=== PATIENT | male | born 1965 | race African-American/Black ===

== ENCOUNTER 2023-02-10 22:34 | Emergency (ER) | payer OTHER ==
--- OUTSIDE RECORDS SUMMARY | 2023-02-10 22:40 | XMS REPORT | Continuity of Care Document ---
:1965 Author Organization [facility] t Address [address] [facility]. [address] [place] [address] Care Team Providers Name Role Phone TIWARI ANGEL Vázquez Primary Care Physician Unavailable KIERRA BAUTISTA Attending Clinician Unavailable Kierra Bautista MD Attending Clinician Leonid Attending Clinician Unavailable Halle Cruz Attending Clinician Unavailable ARIEL SALDIVAR Attending Clinician Unavailable Parker Mina Attending Clinician Unavailable Denise Rider Attending Clinician Unavailable Shira Fernandez Attending Clinician Unavailable Adarsh Simmons Attending Clinician Unavailable Jacy Jimenez Attending Clinician Unavailable ANITA MONTANEZ Attending Clinician Unavailable Zuniga_F Attending Clinician Unavailable JORGE A FRANCO Attending Clinician Unavailable TROY ROJAS Attending Clinician Unavailable KIERRA BAUTISTA Admitting Clinician Unavailable Yariel_Alfredo Admitting Clinician Unavailable Jacy Jimenez Admitting Clinician Unavailable Zuniga_F Admitting Clinician Unavailable Payers Payer Name Policy Type Policy Number Effective Date Expiration Date [place] [employer] DUAL [id number] 2022 ACCESS OPEN PPO 00:00:00 MED[place]ID OF [place] [id number] 2022 00:00:00 [facility] [id number] 2021 [facility] 00:00:00 (MEDICARE REPLACEMENT/ADVANTA [place] - H[place]) [place] [facility] - [id number] [facility] [id number] (MEDICARE REPLACEMENT/ADVANTA GE - PPO) [place] [id number] (MEDICAID) [facility] [id number] 2021 (MEDICARE 00:00:00 REPLACEMENT/ADVANTA GE - HMO) [employer] (MEDICARE [id number] REPLACEMENT/ADVANTA GE - PPO) Problems Condition Condition Condition Status Onset Resolution Last Treating Co mments Source Name Details Category Date Date Treatment Clinician Date Hyperlipid Hyperlipid Problem Active [facility] emia emia 7-13 da 00:00: Medical 00 Group Benign Benign Problem Active [place] essential Essential 7-13 da hypertensi Hypertensi 00:00: Me dical on on 00 Group Mixed Mixed Problem Active [place] anxiety Anxiety 5-16 da and and 00:00: Medical depressive Depressive 00 Gr oup disorder Disorder Gastro-eso Gastro-eso Problem Active [facility] phageal phageal 1-31 da reflux Reflux 00:00: Medical disease Disease 00 Group with with esophagiti Esophagiti s s Crohn's Crohn's Problem Active [place] disease of Disease of 1-31 da colon Colon 00:00: Medical 00 Group Hyperchole Hyperchole Problem Active 2020-09 [facility] sterolemia sterolemia 2-07 da 00:00: Medical 00 Group Hypertensi Hypertensi Problem Active 2020-09 [facility] ve ve 2-07 da disorder Disorder 00:00: Medica l 00 Group No known No known Disease Unive rs active active ity of problems problems [facility] Allergies, Adverse Reactions, Alerts Allergy Allergy Status Severity Reaction(s) Onset Inactive Treating Comm ents Source Name Type Date Date Clinician NO KNOWN Drug Active [facility] ALLERGIE Class ity [facility] [place] [facility] [place] Social History Social Habit Start Date Stop Date Quantity Comments Source Exposure to 2022-07-23 2022-08-02 Not sure [facility] SARS-CoV-2 (event) 00:00:00 02:07:00 Medica l Branch Sex Ass[birth year] At [birth year] [facility] y of [place] 00:00:00 00:00:00 Medical Branch Smoking Status Start Date Stop Date Source Current Every Day Smoker [facility] Tobacco smoking consumption [facility] Branch Medications Ordered Filled Start Stop Current Ordering Indication Dosage Frequency Signature Comments Components Source Medication Medication Date Date Medication? Clinician (SIG) Name Name iopamidol 2021-09- No [id number] 75mL 75 mL, Univers (ISOVUE 1-15 11-15 Intravenou ity o f 370-500 mL) 10:15: 10:15 s, ONCE, 1 [place] injection 00 :00 dose, On Medica l 75 mL e Branch 08/02/22 at 0415, Routine ondansetron 2021-09 Yes [id number] 4mg Take 1 Univers (ZOFRAN) 4 1-15 tablet by ity of mg tablet 00:00: mouth [place] 00 every 8 Medical (eight) Branch hours as needed for Nausea and Vomiting (N/V). albuterol albuterol No albuterol [place] sulfate HFA sulfate HFA sulfate da 90 90 HFA 90 Medical mcg/actuati mcg/actuati mcg/actuat Group on aerosol on aerosol ion inhaler inhaler aerosol INHALE TWO INHALE TWO inhaler (2) PUFFS (2) PUFFS INHALE TWO BY MOUTH BY MOUTH (2) PUFFS EVERY 4 TO EVERY 4 TO BY MOUTH 6 HOURS. 6 HOURS. EVERY 4 TO 6 HOURS. amlodipine amlodipine No amlodipine [place] 10 mg 10 mg 10 mg da tablet TAKE tablet TAKE tablet Medical 1 TABLET BY 1 TABLET BY TAKE 1 Group MOUTH ONCE MOUTH ONCE TABLET BY DAILY DAILY MOUTH ONCE DAILY atorvastati atorvastati No atorvastat [place] n 20 mg n 20 mg in 20 mg da tablet TAKE tablet TAKE tablet Medical 1 TABLET BY 1 TABLET BY TAKE 1 Group MOUTH ONCE MOUTH ONCE TABLET BY DAILY DAILY MOUTH ONCE DAILY cyanocobala cyanocobala No 1mL cyanocobal [place] min (vit min (vit perez (vit da B-12) 1,000 B-12) 1,000 B-12) Medical mcg/mL mcg/mL 1,000 Group injection injection mcg/mL solution solution injection Inject 1 mL Inject 1 mL solution every month every month Inject 1 by by mL every subcutaneou subcutaneou month by s route. s route. subcutaneo us route. famotidine famotidine No famotidine [place] 40 mg 40 mg 40 mg da tablet TAKE tablet TAKE tablet Medical 1 TABLET BY 1 TABLET BY TAKE 1 Group MOUTH ONCE MOUTH ONCE TABLET BY DAILY IN DAILY IN MOUTH ONCE THE EVENING THE EVENING DAILY IN THE EVENING gabapentin gabapentin No .5 BID gabapentin [place] 600 mg 600 mg 600 mg da tablet Take tablet Take tablet Medical 0.5 tablets 0.5 tablets Take 0.5 Group twice a day twice a day tablets by oral by oral twice a route for route for day by 30 days. 30 days. oral route for 30 days. hydroxyzine hydroxyzine No hydroxyzin [place] HCl 25 mg HCl 25 mg e HCl 25 d a tablet TAKE tablet TAKE mg tablet Medical 1 TABLET BY 1 TABLET BY TAKE 1 Group MOUTH ONCE MOUTH ONCE TABLET BY DAILY DAILY MOUTH ONCE NEEDED NEEDED DAILY NEEDED ibuprofen ibuprofen No ibuprofen [place] 800 mg 800 mg 800 mg da tablet tablet tablet Medical Group Medrol Medrol No 1dose Q1D Medrol [place] (Vignesh) 4 mg (Vignesh) 4 mg pk(s) (Vignesh) 4 mg da tablets in tablets in tablets in Medical a dose pack a dose pack a dose Group Take 1 dose Take 1 dose pack Take pk every pk every 1 dose pk day by oral day by oral every day route. route. by oral route. mesalamine mesalamine No mesalamine [place] 1.2 gram 1.2 gram 1.2 gram da tablet,shae tablet,shae tablet,del Medical yed release yed release ayed G roup TAKE 1 TAKE 1 release TABLET BY TABLET BY TAKE 1 MOUTH 3 MOUTH 3 TABLET BY TIMES DAILY TIMES DAILY MOUTH 3 TIMES DAILY metronidazo metronidazo No metronidaz [place] le 500 mg le 500 mg ole 500 mg da tablet TAKE tablet TAKE tablet Medical ONE (1) ONE (1) TAKE ONE Group TABLET(S) TABLET(S) (1) BY MOUTH BY MOUTH TABLET(S) THREE TIMES THREE TIMES BY MOUTH A DAY. A DAY. THREE TIMES A DAY. Mobic 15 mg Mobic 15 mg No 1 Q1D Mobic 15 [place] tablet Take tablet Take mg tablet da 1 tablet 1 tablet Take 1 Medic al every day every day tablet Addi up by oral by oral every day route for 7 route for 7 by oral days. days. route for 7 days. montelukast montelukast No montelukas [place] 10 mg 10 mg t 10 mg da tablet TAKE tablet TAKE tablet Medical 1 TABLET BY 1 TABLET BY TAKE 1 Group MOUTH EVERY MOUTH EVERY TABLET BY DAY DAY MOUTH EVERY DAY mupirocin 2 mupirocin 2 No mupirocin [place] % topical % topical 2 % da ointment ointment topical Medi alejandro APPLY A APPLY A ointment Group SMALL SMALL APPLY A AMOUNT TO AMOUNT TO SMALL THE THE AMOUNT TO AFFECTED AFFECTED THE AREA BY AREA BY AFFECTED TOPICAL TOPICAL AREA BY ROUTE 3 ROUTE 3 TOPICAL TIMES PER TIMES PER ROUTE 3 DAY DAY TIMES PER DAY omeprazole omeprazole No omeprazole [place] 40 mg 40 mg 40 mg da capsule,del capsule,del capsule,de Medical ayed ayed layed Group release release release TAKE 1 TAKE 1 TAKE 1 CAPSULE BY CAPSULE BY CAPSULE BY MOUTH ONCE MOUTH ONCE MOUTH ONCE DAILY DAILY DAILY BEFORE A BEFORE A BEFORE A MEAL MEAL MEAL ondansetron ondansetron No ondansetro [place] 4 mg 4 mg n 4 mg da disintegrat disintegrat disintegra Medical ing tablet ing tablet ting Addi up PLACE 1 PLACE 1 tablet TABLET ON TABLET ON PLACE 1 TONGUE AND TONGUE AND TABLET ON ALLOW TO ALLOW TO TONGUE AND DISSOLVE DISSOLVE ALLOW TO THREE TIMES THREE TIMES DISSOLVE A DAY FOR A DAY FOR THREE NAUSEA NAUSEA TIMES A DAY FOR NAUSEA paroxetine paroxetine No paroxetine [place] 20 mg 20 mg 20 mg da tablet Take tablet Take tablet Medical 1 tablet by 1 tablet by Take 1 Group mouth once mouth once tablet by daily daily mouth once daily propranolol propranolol No propranolo [place] 20 mg 20 mg l 20 mg da tablet TAKE tablet TAKE tablet Medical ONE (1) ONE (1) TAKE ONE Group TABLET(S) TABLET(S) (1) BY MOUTH BY MOUTH TABLET(S) TWICE A TWICE A BY MOUTH DAY. DAY. TWICE A DAY. tramadol 50 tramadol 50 No tramadol [place] mg tablet mg tablet 50 mg da TAKE 1 TAKE 1 tablet Medical TABLET TABLET TAKE 1 Group EVERY 6 EVERY 6 TABLET HOURS BY HOURS BY EVERY 6 ORAL ROUTE ORAL ROUTE HOURS BY NEEDED. NEEDED. ORAL ROUTE as needed as needed NEEDED. for pain for pain as needed for pain Immunizations Ordered Immunization Filled Immunization Date Status Commen ts Source Name Name Influenza vaccine, Influenza vaccine, 2021-08-05 Completed [place] quadrivalent, quadrivalent, 12:11:00 Medical Group adjuvanted adjuvanted Vital Signs Vital Name Observation Time Observation Value Comments Source Heart rate 2022-08-02 11:30:00 93 /min [facility] Oxygen saturation in 2022-08-02 11:30:00 96 /min [facility] Arterial blood by [facility] Pulse oximetry Branch Systolic blood 2022-08-02 11:00:00 134 [facility]Hg[facility] 2022-08-02 11:00:00 97 mm[Hg] [facility] Respiratory rate 2022-08-02 11:00:00 21 /min [facility] Body temperature 2022-08-02 08:11:00 36.56 Blanca [facility] Body height 2022-08-02 08:11:00 160 cm [facility] Body weight 2022-08-02 08:11:00 79.379 kg [facility] BMI 2022-08-02 08:11:00 31.00 kg/m2 [facility] BP Diastolic 2022-05-05 00:00:00 89 mm[Hg] [facility] Height 2022-05-05 00:00:00 68 [in_i] [facility] BMI (Body Mass 2022-05-05 00:00:00 27.5 kg/m2 [facility] Medical Index) Group BP Systolic 2022-05-05 00:00:00 132 mm[Hg] [facility] Body Weight 2022-05-05 00:00:00 2891.2 [oz_av] [facility] BP Diastolic 2022-04-27 00:00:00 96 mm[Hg] [facility] Height 2022-04-27 00:00:00 68 [in_i] [facility] BMI (Body Mass 2022-04-27 00:00:00 26.5 kg/m2 [facility] [place] [facility] Medical Index) Group BP Systolic 2022-04-27 00:00:00 131 mm[Hg] [facility] Body Weight 2022-04-27 00:00:00 2792 [oz_av] [facility] BP Diastolic 2022-03-30 00:00:00 67 mm[Hg] [facility] Height 2022-03-30 00:00:00 68 [in_i] [facility] BMI (Body Mass 2022-03-30 00:00:00 26.5 kg/m2 [facility] [place] [facility] Medical Index) Group BP Systolic 2022-03-30 00:00:00 106 mm[Hg] [facility] Body Weight 2022-03-30 00:00:00 2784 [oz_av] [facility] BP Diastolic 2022-02-28 00:00:00 93 mm[Hg] [facility] Height 2022-02-28 00:00:00 68 [in_i] [facility] BMI (Body Mass 2022-02-28 00:00:00 26.5 kg/m2 [facility] [place] [facility] Medical Index) Group BP Systolic 2022-02-28 00:00:00 132 mm[Hg] [facility] Body Weight 2022-02-28 00:00:00 2784 [oz_av] [facility] BP Diastolic 2022-01-31 00:00:00 92 mm[Hg] [facility] Height 2022-01-31 00:00:00 68 [in_i] [facility] BMI (Body Mass 2022-01-31 00:00:00 26.8 kg/m2 [facility] Index) Group BP Systolic 2022-01-31 00:00:00 128 mm[Hg] [facility] Body Weight 2022-01-31 00:00:00 2816 [oz_av] [facility] BP Diastolic 2022-01-03 00:00:00 87 mm[Hg] [facility] Height 2022-01-03 00:00:00 68 [in_i] [facility] BMI (Body Mass 2022-01-03 00:00:00 26.8 kg/m2 [facility] [place] [facility] Medical Index) Group BP Systolic 2022-01-03 00:00:00 124 mm[Hg] [facility] Body Weight 2022-01-03 00:00:00 2816 [oz_av] [facility] BP Diastolic 2021-12-06 00:00:00 85 mm[Hg] [facility] Height 2021-12-06 00:00:00 68 [in_i] [facility] BMI (Body Mass 2021-12-06 00:00:00 27.4 kg/m2 [facility] [place] [facility] Medical Index) Group BP Systolic 2021-12-06 00:00:00 131 mm[Hg] [facility] Body Weight 2021-12-06 00:00:00 2887 [oz_av] [facility] BP Diastolic 2021-11-18 00:00:00 85 mm[Hg] [facility] Height 2021-11-18 00:00:00 68 [in_i] [facility] BMI (Body Mass 2021-11-18 00:00:00 27.4 kg/m2 [facility] Medical Index) Group BP Systolic 2021-11-18 00:00:00 133 mm[Hg] [facility] Body Weight 2021-11-18 00:00:00 2880 [oz_av] [facility] BP Diastolic 2021-10-05 00:00:00 89 mm[Hg] [facility] Height 2021-10-05 00:00:00 68 [in_i] [facility] BMI (Body Mass 2021-10-05 00:00:00 27.7 kg/m2 [facility] Medical Index) Group BP Systolic 2021-10-05 00:00:00 124 mm[Hg] [facility] Body Weight 2021-10-05 00:00:00 2912 [oz_av] [facility] BP Diastolic 2021-08-24 00:00:00 78 mm[Hg] [facility] Height 2021-08-24 00:00:00 68 [in_i] [facility] BMI (Body Mass 2021-08-24 00:00:00 28.6 kg/m2 [facility] Medical Index) Group BP Systolic 2021-08-24 00:00:00 122 mm[Hg] [facility] Body Weight 2021-08-24 00:00:00 188 [lb_av] [facility] BP Diastolic 2021-08-05 00:00:00 84 mm[Hg] [facility] Height 2021-08-05 00:00:00 68 [in_i] [facility] BMI (Body Mass 2021-08-05 00:00:00 27.5 kg/m2 [facility] Medical Index) Group BP Systolic 2021-08-05 00:00:00 118 mm[Hg] [facility] Body Weight 2021-08-05 00:00:00 2896 [oz_av] [facility] Procedures Procedure Date / Time Performing Clinician Source Performed URINALYSIS 2022-08-02 10:17:00 Kierra Bautista [facility] CT ABDOMEN PELVIS W 2022-08-02 09:15:15 Kierra Bautista [facility] LIPASE 2022-08-02 08:16:00 Kierra Bautista [facility] HEPATIC FUNCTION PANEL 2022-08-02 08:16:00 Kierra Bautista [facility] ([id number]) (ALB,T.PRO,BILI Medical Branch T,BU/BC,ALT,AST,ALK PHOS) BASIC METABOLIC PANEL (NA, 2022-08-02 08:16:00 Kierra Bautista [facility] K, CL, CO2, GLUCOSE, BUN, Medica l Branch CREATININE, CA) CBC WITH DIFF 2022-08-02 08:16:00 Kierra Bautista [facility] XR, tibia + fibula, 2 view 2022-04-27 00:00:00 [facility] XR, knee, 3 view 2022-04-27 00:00:00 [place] [facility] XR, lumbosacral spine, 2 2022-04-27 00:00:00 [facility] 3 view Group XR, thoracic spine, 2 view 2022-04-27 00:00:00 [facility] XR, shoulder, 2 or more 2022-04-27 00:00:00 [facility] CT, abdomen + pelvis, w/o 2022-04-27 00:00:00 [facility] contrast [facility] ECG WITH INTERPRETATION 2021-08-05 00:00[facility]00 [facility], chest, 2 view 2021-08-05 00:00:00 [place] [facility] Cardiac Catheterization 2018-03-18 00:00:00 [facility] Partial Resection of Colon 1999-09-18 00:00:00 [facility] Cholecystectomy [place] [facility] Plan of Care Planned Activity Planned Date Details Comments Source Diagnostic Test 2022-05-05 CMP, serum or [place] [facility] edical Pending 00:00:00 plasma [code = Group CMP, serum or plasma] Diagnostic Test 2022-05-05 urinalysis, [place] Me dical Pending 00:00:00 complete [code = Group urinalysis, complete] Diagnostic Test 2022-05-05 [facility]albumin[facility] Pending 00:00:00 inine, mass ratio, Group urine [code = microalbumin/creat inine, mass ratio, urine] Encounters Start End Encounter Admission Attending Care Care Encounter Source Date/Time Date/Time Type Type Clinicians Facility Department ID 2022-08-02 2022-08-02 Emergency X MICHELE NYABI ERT [id number] [facility] 02:08:00 06:26:00 KIERRA larose [facility] 2022-08-02 2022-08-02 Emergency Michele NYABI [id number] [facility] 02:08:00 06:26:00 Kierra BAI [id number] [facility] [id number] [facility] [id number] [facility] 084 Branch 2022-06-13 2022-06-13 Outpatient Koudela_A [facility] [id number] -[id number] [place] 00:00:00 00:00:00 0926 Medical [facility] 2022-05-18 2022-05-18 Emergency ER Cruz, [facility] [id number] [place] 16:09:00 18:58:00 Halle -[id number] [facility] 2022-05-05 2022-05-05 Outpatient EL YARIEL, [facility] [id number] [place] 10:53:00 10:53:00 ARIEL -[id number] [facility] 2022-05-05 2022-05-05 Ariel Verala_A MMG [place] - [id number] 22 [place] 00:00:00 00:00:00 Discovery Yariel 0818 da PA-C: [address] [facility] [address], [facility] [place] [address] , Ph. 2022-04-27 2022-04-27 Outpatient UR YARIEL, [facility] [id number] [place] 11:14:00 11:14:00 ARIEL [id number] [facility] 2022-04-27 2022-04-27 [place] Saldivar_[place] G [place] - [id number] 22 [place] 00:00:00 00:00:00 Discovery Yariel 10 da PA-C: [address] [facility] [address], [facility] [place] [address] , Ph. 2022-04-18 2022-04-18 Emergency ER Mina, [facility] [id number] [place] 13:18:00 17:27:00 Parker -[id number] [facility] 2022-04-15 2022-04-15 Outpatient Koudela_A G [facility] [id number] -[id number] [place] 00:00:00 00:00:00 0729 Medical Group 2022-03-30 2022-03-30 Ariel Koudela_[place] MMG [place] - [id number] 22 [place] 00:00:00 00:00:00 Discovery Yariel 13 da PA-C: [address] [facility] [address], [facility] [place] [address] , Ph. 2022-02-28 2022-02-28 Ariel Sanchezudela_[place] MM[place] - [id number] 22 [place] 00:00:00 00:00:00 Discovery Yariel 0613 da PA-C: [address] [facility] [address], [facility] [place] [address] , Ph. 2022-02-25 2022-02-25 Emergency ER Iwona, [facility] [id number] [place] 13:30:00 19:22:00 Denise -[id number] [facility] 2022-02-05 2022-02-05 Outpatient Koudela_A G G [id number] -2021 [place] 12:33:00 12:33:00 0521 Medical Group 2022-01-31 2022-01-31 Outpatient AURELIO YARIEL, [facility] [id number] [place] 11:31:00 11:31:00 ARIEL -[id number] [facility] 2022-01-31 2022-01-31 Ari[place] Koudela_[place] - [id number] 22 [place] 00:00:00 00:00:00 Discovery Yariel 0516 da PA-C: [address] [address], [facility] [place] [address] , Ph. 2022-01-12 2022-01-12 Outpatient AURELIO Fernandez, [facility] [id number] [place] 09:58:00 09:58:00 Shira -[id number] [facility] 2022-01-03 2022-01-03 Ariel Sanchezudela_[place] - [id number] 22 [place] 00:00:00 00:00:00 Discovery Yariel 0418 da PA-C: [address] [facility] [address], [facility] [place] [address] , Ph. 2021-12-17 2021-12-17 Outpatient Koudela_A [facility] [id number] [place] 06:11:00 06:11:00 0401 [facility] 2021-12-06 2021-12-06 [place]ela_[place] - [id number] 22 [place] 00:00:00 00:00:00 Discovery Yariel 0321 da PA-C: [address] [facility] [address], [facility] [place] [address] , Ph. 2021-12-02 2021-12-02 Outpatient EL Simmons, [facility] [id number] [place] 10:10:00 10:10:00 Adarsh -[id number] [facility] 2021-11-18 2021-11-18 Outpatient EL VÍCTORLA, [facility] [id number] [place] 10:39:00 10:39:00 ARIEL [id number] da [facility] 2021-11-18 2021-11-18 Ariel Verala_A [facility] [place] - [id number] 22 [place] 00:00:00 00:00:00 Discovery Yariel 0303 da PA-C: [address] [facility] [address], [facility] [place] [address] , Ph. 2021-11-17 2021-11-17 Outpatient EL Simmons, [facility] [id number] [place] 10:55:00 10:55:00 Adarsh -[id number] [facility] 2021-10-29 2021-10-29 Outpatient Koudela_A [facility] [id number] -2021 [place] 04:41:00 04:41:00 0211 [facility] 2021-10-27 2021-10-27 Outpatient Koudela_A MM[facility] [id number] -2021 [place] 02:05:00 02:05:00 0209 [facility] 2021-10-19 2021-10-19 Outpatient AURELIO Simmons, [facility] [id number] [place] 09:53:00 09:53:00 Adarsh -[id number] [facility] 2021-10-18 2021-10-18 Outpatient Koudela_A [facility] G [id number] -2021 [place] 11:04:00 11:04:00 0131 [facility] 2021-10-05 2021-10-05 Ariel Koudela_[place] - [id number] 22 [place] 00:00:00 00:00:00 Discovery Thu SaldivarC: [address] [place] [address] - [address] [place] [address] , Ph. 2021-09-26 2021-10-01 Inpatient ER Jimenez, [facility] [id number] [place] 12:55:00 14:03:00 Jacy -[id number] [facility] 2021-09-25 2021-09-25 Emergency ER MONTANEZ, [facility] [id number] [place] 11:01:00 14:06:00 ANITA -[id number] [facility] 2021-08-25 2021-08-25 Outpatient Koudela_A [facility] [id number] [place] 05:53:00 05:53:00 1208 [facility] 2021-08-24 2021-08-24 M[place] Koudela_[place] - [id number] 21 [place] 00:00:00 00:00:00 Bhargav Johnson MD: Medical Medica [address], [place] [address] , Ph. [phone] 2021-08-09 2021-08-09 Outpatient Koudela_A [facility] [id number] -[id number] [place] 04:17:00 04:17:00 1122 [facility] 2021-08-06 2021-08-06 Outpatient Koudela_A [facility] G [id number] -2020 [place] 10:50:00 10:50:00 1119 [facility] 2021-08-05 2021-08-05 Ari[place] Koudela_[place] - [id number] 21 [place] 00:00:00 00:00:00 Discovery Yariel 1118 da PA-C: 600 [facility] [address], [facility] [place] [address] , Ph. 2021-08-04 2021-08-04 Outpatient Koudela_A [facility] [id number] -[id number] [place] 05:51:00 05:51:00 1117 [facility] Medical Group 2021-08-03 2021-08-03 Outpatient Zuniga_F [facility] [id number]- [id number] [place] 01:34:00 01:34:00 1116 [facility] 2021-05-29 2021-05-29 Emergency ER BA, JORGE A [facility] [id number] [place] 07:18:00 12:30:00 -[id number] [facility] 2021 2021 Emergency ER ROJAS, [facility] [id number] [place] 21:16:00 22:23:00 WAS -[id number] [facility] 2021-04-05 2021-04-05 Outpatient Zuniga_F [facility] [id number] [place] 02:45:00 02:45:00 0719 Medical Group Results Test Description Test Time Test Comments Results Result Comments Source Urinalysis complete W Reflex Culture panel - Urine 2022-04-18 0 09:29:00 Test Item Value Reference Range Interpretation Comme nts Color of Urine by Auto (test code = 57942-9) yellow Appearance of Urine (test code = 5767-9) clear clear Glucose [Presence] in Urine by Automated test strip negative ne gative (test code = 78082-6) Bilirubin.total [Mass/volume] in Urine (test code = negative ne gative 1977-02) Ketones [Mass/volume] in Urine by Automated test strip trace negative (test code = 18306-5) Specific gravity of Urine by Automated test strip (test 1.027 1.003-1.030 code = 95042-5) blood urine (test code = blood urine) negative negative pH of Urine (test code = 2756-5) 6.000 5-9 protein urine (UA) (test code = protein urine (UA)) =1+ (50 ne gative H Urobilinogen [Presence] in Urine (test code = 49606-6) =2.0 0.2-1.0 H Nitrite [Presence] in Urine by Test strip (test code = negative negative 5802-4) Leukocyte esterase [Presence] in Urine by Automated negative ne gative test strip (test code = 84227-2) Erythrocytes [#/volume] in Urine by Automated count =1-5 0- 5 (test code = 798-9) Leukocytes [#/area] in Urine sediment by Automated =1-5 0-5 count (test code = 84803-7) Epithelial cells [Presence] in Urine sediment by Light <1 0-5 microscopy (test code = 46956-5) Bacteria identified in Urine by Culture (test code = none detected none detect 630-4) Casts [#/area] in Urine sediment by Automated count none detected n one detect (test code = 78380-7) urine culture added? (test code = urine culture added?) [facility] W Auto Differential panel - [id number] 09:29:00 Test Item Value Reference Range Interpretation Comments white blood count (test code = 6.2 K/uL 4.0-12.3 white blood count) red blood count (test code = red 4.90 M/uL 3.80-5.80 blood count) hemoglobin (test code = 14.1 g/dL 11.7-17.2 hemoglobin) hematocrit (test code = 43.3 % 35.0-51.0 hematocrit) MCV [Entitic volume] (test code = 88.4 fL 83.0-100.0 63499-6) mean corpuscular hemoglobin (test 28.8 pg 26.8-33.4 code = mean corpuscular hemoglobin) mean corpuscular HGB conc (test 32.6 g/dL 30.0-35.0 code = mean corpuscular HGB conc) red cell distribution width (test 13.9 % 12.0-14.0 code = red cell distribution width) platelet count (test code = 309 K/uL 175-450 platelet count) mean platelet volume (test code = 9.0 fL 9.4-12.6 L mean platelet volume) Segmented neutrophils/100 52.9 % 44.7-82.4 leukocytes in Blood (test code = 96738-6) Immature granulocytes [#/volume] 0.01 K/uL 0.00-0.03 in Blood (test code = 45858-8) lymphocyte% (test code = 32.5 % 10.0-50.0 lymphocyte%) mono % (test code = mono %) 11.7 % 3.9-13.4 eos % (test code = eos %) 2.1 % 0.0-6.4 basophil % (test code = basophil 0.6 % 0.2-1.2 %) Band form neutrophils [#/volume] 3.30 K/uL 1.78-5.38 in Blood (test code = 52861-9) Lymphocytes [#/volume] in Specimen 2.03 K/uL 1.32-3.57 by Automated count (test code = 05504-9) mono # (test code = mono #) 0.73 K/uL 0.30-0.82 eos # (test code = eos #) 0.13 K/uL 0.04-0.54 basophil # (test code = basophil 0.04 K/uL 0.01-0.08 #) NRBC% (test code = NRBC%) 0 /100 WBC 0-0.2 NRBC# (test code = NRBC#) 0 [facility]L [facility] unspecified - [id number] 09:29:00NeutrophilsBandLymphocyteAtypical LymphMonocyteEosinophilBasophilAbs Neutrophil Count (Man)Abs LymphCount (Man)Abs Monocyte Count (Man)Abs Eosinophil Count (Man)Abs Basophil Count (Man)Platelet EstimatePlatelet MorphologyHypochromasiaPoikilocytosisAnisocytosisStomatocyteMatagorda Medical GroupComprehensive metabolic 2000 panel - Serum or [id number] 09:29:00 Test Item Value Reference Range Interpretation Comments Glucose [Mass/volume] in Serum or 103 mg/dL 74-106 Plasma (test code = 2345-7) Urea nitrogen [Mass/volume] in 11 mg/dL 6-20 Serum or Plasma (test code = 3094-0) osmolality calculated,serum (test 274 mOsm/kg 280-300 L code = osmolality calculated,serum) creatinine (test code = 0.99 mg/dL 0.70-1.20 creatinine) glomerular filtration rate (test >60.00 code = glomerular filtration rate) BUN/creatinine ratio (test code = 11.1 12.0-20.0 L BUN/creatinine ratio) sodium level (test code = sodium 137 mmol/L 135-145 level) potassium level (test code = 4.0 mmol/L 3.5-5.2 potassium level) chloride level (test code = 102 mmol/L 98-108 chloride level) CO2 (test code = CO2) 23 mmol/L 21-32 anion gap (test code = anion gap) 16.0 mEq/L 12.0-20.0 calcium level (test code = 9.8 mg/dL 8.6-10.0 calcium level) total protein (test code = total 7.2 g/dL 6.6-8.7 protein) albumin (test code = albumin) 4.6 g/dL 3.5-5.2 globulin (test code = globulin) 2.6 g/dL 1.5-4.5 A/G ratio (test code = A/G ratio) 1.8 >1.0 bilirubin,total (test code = 0.4 mg/dL 0.0-1.2 bilirubin,total) AST/SGOT (test code = AST/SGOT) 35 U/L 15-40 Alanine aminotransferase 67 U/L 0-41 H [Enzymatic activity/volume] in Serum or Plasma (test code = 1742-6) Alkaline phosphatase [Enzymatic 100 U/L 40-130 activity/volume] in Serum or Plasma (test code = 6768-6) [facility] [Enzymatic activity/volume] in Serum or Plasma 2022-04-27 00:00:00 Test Item Value Reference Range Interpretation Comments Amylase [Enzymatic activity/volume] in 62 U/L 28-100 Serum or Plasma (test code = 1798-8) [facility]ase [Enzymatic activity/volume] in Serum or Plasma 2022-04-27 00:00:00 Test Item Value Reference Range Interpretation Comments lipase (test code = lipase) 41 U/L 13-60 [facility]Urinalysis complete panel - [id number] 12:30:00 Test Item Value Reference Range Interpretation Comments Color of Urine by Auto (test light yellow code = 07987-5) Appearance of Urine (test code clear clear = 5767-9) Glucose [Presence] in Urine by negative negative Automated test strip (test code = 83314-4) Bilirubin.total [Mass/volume] negative negative in Urine (test code = 1978-6) Ketones [Mass/volume] in Urine negative negative by Automated test strip (test code = 21554-7) Specific gravity of Urine by 1.029 1.003-1.030 Automated test strip (test code = 75175-5) blood urine (test code = blood negative negative urine) pH of Urine (test code = 7.000 5-9 2756-5) protein urine (UA) (test code = negative negative protein urine (UA)) Urobilinogen [Presence] in normal 0.2-1.0 Urine (test code = 71491-4) Nitrite [Presence] in Urine by negative negative Test strip (test code = 5802-4) Leukocyte esterase [Presence] negative negative in Urine by Automated test strip (test code = 40655-2) Erythrocytes [#/volume] in <1 0-5 Urine by Automated count (test code = 798-9) Leukocytes [#/area] in Urine <1 0-5 sediment by Automated count (test code = 24488-1) Epithelial cells [Presence] in <1 0-5 Urine sediment by Light microscopy (test code = 33050-9) Bacteria identified in Urine by none detected none detect Culture (test code = 630-4) Casts [#/area] in Urine none detected none detect sediment by Automated count (test code = 79863-5) urine culture added? (test code no = urine culture added?) [facility] complete panel - [id number] 12:30:00 Test Item Value Reference Range Interpretation Comments Color of Urine by Auto (test light yellow code = 98853-3) Appearance of Urine (test code clear clear = 5767-9) Glucose [Presence] in Urine by negative negative Automated test strip (test code = 13427-4) Bilirubin.total [Mass/volume] negative negative in Urine (test code = 1978-6) Ketones [Mass/volume] in Urine negative negative by Automated test strip (test code = 64652-9) Specific gravity of Urine by 1.029 1.003-1.030 Automated test strip (test code = 25712-0) blood urine (test code = blood negative negative urine) pH of Urine (test code = 7.000 5-9 2756-5) protein urine (UA) (test code = negative negative protein urine (UA)) Urobilinogen [Presence] in normal 0.2-1.0 Urine (test code = 82089-7) Nitrite [Presence] in Urine by negative negative Test strip (test code = 5802-4) Leukocyte esterase [Presence] negative negative in Urine by Automated test strip (test code = 02395-3) Erythrocytes [#/volume] in <1 0-5 Urine by Automated count (test code = 798-9) Leukocytes [#/area] in Urine <1 0-5 sediment by Automated count (test code = 12697-2) Epithelial cells [Presence] in <1 0-5 Urine sediment by Light microscopy (test code = 85546-0) Bacteria identified in Urine by none detected none detect Culture (test code = 630-4) Casts [#/area] in Urine none detected none detect sediment by Automated count (test code = 95120-2) urine culture added? (test code no = urine culture added?) [facility] Indirect antibody screen [facility] - Blood 2022-04-18 11:39:00 Test Item Value Reference Range Interpretation Comments Rh [Type] in Blood (test code = 4+ 17253-1) ABO and Rh group panel - Blood A positive (test code = 66962-9) [facility] Indirect antibody screen [facility] - Blood 2022-04-18 11:39:00 Test Item Value Reference Range Interpretation Comments Rh [Type] in Blood (test code = 4+ 95050-0) ABO and Rh group panel - Blood A positive (test code = 72171-9) [facility] - Blood by Automated [id number] 11:34:00 Test Item Value Reference Range Interpretation Comments white blood count (test code = 6.5 K/uL 4.0-12.3 white blood count) red blood count (test code = red 4.52 M/uL 3.80-5.80 blood count) hemoglobin (test code = hemoglobin) 13.5 g/dL 11.7-17.2 hematocrit (test code = hematocrit) 39.6 % 35.0-51.0 MCV [Entitic volume] (test code = 87.6 fL 83.0-100.0 45329-6) mean corpuscular hemoglobin (test 29.9 pg 26.8-33.4 code = mean corpuscular hemoglobin) mean corpuscular HGB conc (test 34.1 g/dL 30.0-35.0 code = mean corpuscular HGB conc) red cell distribution width (test 14.3 % 12.0-14.0 H code = red cell distribution width) platelet count (test code = 251 K/uL 175-450 platelet count) mean platelet volume (test code = 8.0 fL 9.4-12.6 L mean platelet volume) [facility]PT/[id number] 11:34:00 Test Item Value Reference Range Interpretation Comments prothrombin time (test code = 9.9 seconds 10.3-12.3 L prothrombin time) INR in Blood by Coagulation assay <0.94 (test code = 21644-6) [facility] thromboplastin [id number] 11:34:00 Test Item Value Reference Range Interpretation Comments INR in Blood by Coagulation 24.5 seconds 22.5-37.0 assay (test code = 29880-8) [facility]Com[facility] 2000 [facility] - Serum or Plasma 2022-04-18 11:34:00 Test Item Value Reference Range Interpretation Comments Glucose [Mass/volume] in Serum or 96 mg/dL 74-106 Plasma (test code = 2345-7) Urea nitrogen [Mass/volume] in 9 mg/dL 6-20 Serum or Plasma (test code = 3094-0) osmolality calculated,serum (test 276 mOsm/kg 280-300 L code = osmolality calculated,serum) creatinine (test code = 0.97 mg/dL 0.70-1.20 creatinine) glomerular filtration rate (test >60.00 code = glomerular filtration rate) BUN/creatinine ratio (test code = 9.3 12.0-20.0 L BUN/creatinine ratio) sodium level (test code = sodium 139 mmol/L 135-145 level) potassium level (test code = 3.2 mmol/L 3.5-5.2 L potassium level) chloride level (test code = 101 mmol/L 98-108 chloride level) CO2 (test code = CO2) 31 mmol/L 21-32 anion gap (test code = anion gap) 10.2 mEq/L 12.0-20.0 L calcium level (test code = 9.6 mg/dL 8.6-10.0 calcium level) total protein (test code = total 7.3 g/dL 6.6-8.7 protein) albumin (test code = albumin) 4.3 g/dL 3.5-5.2 globulin (test code = globulin) 3.0 g/dL 1.5-4.5 A/G ratio (test code = A/G ratio) 1.4 >1.0 bilirubin,total (test code = 0.3 mg/dL 0.0-1.2 bilirubin,total) AST/SGOT (test code = AST/SGOT) 24 U/L 15-40 Alanine aminotransferase 41 U/L 0-41 [Enzymatic activity/volume] in Serum or Plasma (test code = 1742-6) Alkaline phosphatase [Enzymatic 91 U/L 40-130 activity/volume] in Serum or Plasma (test code = 6768-6) [facility] kinase [Enzymatic activity/volume] in Serum or [id number] 11:34:00 Test Item Value Reference Range Interpretation Comments creatine kinase (test code = creatine 192 U/L 20-200 kinase) [facility] panel - Blood by Automated [id number] 11:34:00 Test Item Value Reference Range Interpretation Comments white blood count (test code = 6.5 K/uL 4.0-12.3 white blood count) red blood count (test code = red 4.52 M/uL 3.80-5.80 blood count) hemoglobin (test code = hemoglobin) 13.5 g/dL 11.7-17.2 hematocrit (test code = hematocrit) 39.6 % 35.0-51.0 MCV [Entitic volume] (test code = 87.6 fL 83.0-100.0 49909-4) mean corpuscular hemoglobin (test 29.9 pg 26.8-33.4 code = mean corpuscular hemoglobin) mean corpuscular HGB conc (test 34.1 g/dL 30.0-35.0 code = mean corpuscular HGB conc) red cell distribution width (test 14.3 % 12.0-14.0 H code = red cell distribution width) platelet count (test code = 251 K/uL 175-450 platelet count) mean platelet volume (test code = 8.0 fL 9.4-12.6 L mean platelet volume) [facility]PT/[id number] 11:34:00 Test Item Value Reference Range Interpretation Comments prothrombin time (test code = 9.9 seconds 10.3-12.3 L prothrombin time) INR in Blood by Coagulation assay <0.94 (test code = 04472-1) [facility] [id number] 11:34:00 Test Item Value Reference Range Interpretation Comments INR in Blood by Coagulation 24.5 seconds 22.5-37.0 assay (test code = 88798-4) [facility]Com[facility] 2000 panel - Serum or Plasma 2022-04-18 11:34:00 Test Item Value Reference Range Interpretation Comments Glucose [Mass/volume] in Serum or 96 mg/dL 74-106 Plasma (test code = 2345-7) Urea nitrogen [Mass/volume] in 9 mg/dL 6-20 Serum or Plasma (test code = 3094-0) osmolality calculated,serum (test 276 mOsm/kg 280-300 L code = osmolality calculated,serum) creatinine (test code = 0.97 mg/dL 0.70-1.20 creatinine) glomerular filtration rate (test >60.00 code = glomerular filtration rate) BUN/creatinine ratio (test code = 9.3 12.0-20.0 L BUN/creatinine ratio) sodium level (test code = sodium 139 mmol/L 135-145 level) potassium level (test code = 3.2 mmol/L 3.5-5.2 L potassium level) chloride level (test code = 101 mmol/L 98-108 chloride level) CO2 (test code = CO2) 31 mmol/L 21-32 anion gap (test code = anion gap) 10.2 mEq/L 12.0-20.0 L calcium level (test code = 9.6 mg/dL 8.6-10.0 calcium level) total protein (test code = total 7.3 g/dL 6.6-8.7 protein) albumin (test code = albumin) 4.3 g/dL 3.5-5.2 globulin (test code = globulin) 3.0 g/dL 1.5-4.5 A/G ratio (test code = A/G ratio) 1.4 >1.0 bilirubin,total (test code = 0.3 mg/dL 0.0-1.2 bilirubin,total) AST/SGOT (test code = AST/SGOT) 24 U/L 15-40 Alanine aminotransferase 41 U/L 0-41 [Enzymatic activity/volume] in Serum or Plasma (test code = 1742-6) Alkaline phosphatase [Enzymatic 91 U/L 40-130 activity/volume] in Serum or Plasma (test code = 6768-6) [facility]Creat[facility] kinase [Enzymatic activity/volume] in Serum or [id number] 11:34:00 Test Item Value Reference Range Interpretation Comments creatine kinase (test code = creatine 192 U/L 20-200 kinase) [facility] W Auto Differential panel - [id number] 09:45:00 Test Item Value Reference Range Interpretation Comments white blood count (test code = 5.6 K/uL 4.0-12.3 white blood count) red blood count (test code = red 4.27 M/uL 3.80-5.80 blood count) hemoglobin (test code = 12.6 g/dL 11.7-17.2 hemoglobin) hematocrit (test code = 38.2 % 35.0-51.0 hematocrit) MCV [Entitic volume] (test code = 89.5 fL 83.0-100.0 13946-5) mean corpuscular hemoglobin (test 29.5 pg 26.8-33.4 code = mean corpuscular hemoglobin) mean corpuscular HGB conc (test 33.0 g/dL 30.0-35.0 code = mean corpuscular HGB conc) red cell distribution width (test 14.3 % 12.0-14.0 H code = red cell distribution width) platelet count (test code = 258 K/uL 175-450 platelet count) mean platelet volume (test code = 9.5 fL 9.4-12.6 mean platelet volume) Segmented neutrophils/100 46.8 % 44.7-82.4 leukocytes in Blood (test code = 39279-6) Immature granulocytes [#/volume] 0.01 K/uL 0.00-0.03 in Blood (test code = 67890-9) lymphocyte% (test code = 36.8 % 10.0-50.0 lymphocyte%) mono % (test code = mono %) 11.7 % 3.9-13.4 eos % (test code = eos %) 3.6 % 0.0-6.4 Basophils/100 leukocytes in 0.9 % 0.2-1.2 Specimen (test code = 42163-5) Band form neutrophils [#/volume] 2.64 K/uL 1.78-5.38 in Blood (test code = 53642-6) Lymphocytes [#/volume] in Specimen 2.07 K/uL 1.32-3.57 by Automated count (test code = 70395-6) mono # (test code = mono #) 0.66 K/uL 0.30-0.82 eos # (test code = eos #) 0.20 K/uL 0.04-0.54 basophil # (test code = basophil 0.05 K/uL 0.01-0.08 #) NRBC% (test code = NRBC%) 0 /100 WBC 0-0.2 NRBC# (test code = NRBC#) 0 K/uL [facility] - Serum or Plasma 2022-01-31 09:45:00 Test Item Value Reference Range Interpretation Comments glucose (test code = glucose) 96 mg/dL 74-106 Urea nitrogen [Mass/volume] in 12 mg/dL 6-20 Serum or Plasma (test code = 3094-0) osmolality calculated,serum (test 277 mOsm/kg 280-300 L code = osmolality calculated,serum) creatinine (test code = 0.92 mg/dL 0.70-1.20 creatinine) glomerular filtration rate (test >60.00 code = glomerular filtration rate) Urea nitrogen/Creatinine [Mass 13.0 12.0-20.0 Ratio] in Serum or Plasma (test code = 3097-3) sodium level (test code = sodium 139 mmol/L 135-145 level) Potassium [Moles/volume] in Body 3.6 mmol/L 3.5-5.2 fluid (test code = 2821-7) chloride level (test code = 106 mmol/L 98-108 chloride level) CO2 (test code = CO2) 24 mmol/L 21-32 anion gap (test code = anion gap) 12.6 mEq/L 12.0-20.0 calcium level (test code = 8.9 mg/dL 8.6-10.0 calcium level) total protein (test code = total 6.6 g/dL 6.6-8.7 protein) albumin (test code = albumin) 4.4 g/dL 3.5-5.2 globulin (test code = globulin) 2.2 g/dL 1.5-4.5 A/G ratio (test code = A/G ratio) 2.0 >1.0 bilirubin,total (test code = 0.2 mg/dL 0.0-1.2 bilirubin,total) AST/SGOT (test code = AST/SGOT) 19 U/L 15-40 Alanine aminotransferase 28 U/L 0-41 [Enzymatic activity/volume] in Serum or Plasma (test code = 1742-6) Alkaline phosphatase [Enzymatic 91 U/L 40-130 activity/volume] in Serum or Plasma (test code = 6768-6) [facility] - Serum or [id number] 09:45:00 Test Item Value Reference Range Interpretation Comments cholesterol level (test code = 113 mg/dL 150-200 L cholesterol level) triglycerides level (test code = 148 mg/dL <150 triglycerides level) HDL cholesterol (test code = HDL 36 mg/dL >55 L cholesterol) LDL cholesterol direct (test code = 61 mg/dL <100 LDL cholesterol direct) cholesterol risk ratio (test code = 3.138 cholesterol risk ratio) [facility]inal[facility] complete [facility] Reflex Culture panel - Urine 2022-01-31 09:45:00 Test Item Value Reference Range Interpretation Comments Color of Urine by Auto (test yellow code = 75855-7) Appearance of Urine (test code clear clear = 5767-9) Glucose [Presence] in Urine by negative negative Automated test strip (test code = 71574-4) Bilirubin.total [Mass/volume] negative negative in Urine (test code = 1978-6) Ketones [Mass/volume] in Urine negative negative by Automated test strip (test code = 73348-8) Specific gravity of Urine by 1.031 1.003-1.030 H Automated test strip (test code = 28559-5) blood urine (test code = blood negative negative urine) pH of Urine (test code = 6.000 5-9 2756-5) protein urine (UA) (test code = =1+ (30 negative H protein urine (UA)) Urobilinogen [Presence] in =2.0 0.2-1.0 H Urine (test code = 39665-6) Nitrite [Presence] in Urine by negative negative Test strip (test code = 5802-4) Leukocyte esterase [Presence] negative negative in Urine by Automated test strip (test code = 55523-9) Erythrocytes [#/volume] in =1-5 0-5 Urine by Automated count (test code = 798-9) Leukocytes [#/area] in Urine <1 0-5 sediment by Automated count (test code = 97613-0) Epithelial cells [Presence] in <1 0-5 Urine sediment by Light microscopy (test code = 75439-8) Bacteria identified in Urine by none detected none detect Culture (test code = 630-4) Casts [#/area] in Urine =2-5 none detect sediment by Automated count (test code = 23547-6) urine culture added? (test code no = urine culture added?) [facility], method unspecified - [id number] 00:00:00NeutrophilsBandLymphocyteAtypical LymphMonocyteEosinophilBasophilMetamyelocyteAbs Neutrophil Count (Man)Abs Lymph Count (Man)Abs Monocyte Count (Man)Abs Eosinophil Count (Man)Abs Basophil Count (Man)Platelet EstimatePlatelet MorphologyMacrocytosisUmmc [facility] County Hemoglobin A1c [Mass/volume] in [id number] 00:00:00 Test Item Value Reference Range Interpretation Comments Hemoglobin A1c [Mass/volume] in Blood 5.7 % 4.0-6.0 (test code = 09635-4) [facility] 2000 [facility] - Serum or Plasma 2021-11-18 09:51:00 Test Item Value Reference Range Interpretation Comments glucose (test code = glucose) 91 mg/dL 74-106 Urea nitrogen [Mass/volume] in 10 mg/dL 6-20 Serum or Plasma (test code = 3094-0) osmolality calculated,serum (test 276 mOsm/kg 280-300 L code = osmolality calculated,serum) creatinine (test code = 0.96 mg/dL 0.70-1.20 creatinine) glomerular filtration rate (test >60.00 code = glomerular filtration rate) Urea nitrogen/Creatinine [Mass 10.4 12.0-20.0 L Ratio] in Serum or Plasma (test code = 3097-3) sodium level (test code = sodium 139 mmol/L 135-145 level) Potassium [Moles/volume] in Body 3.4 mmol/L 3.5-5.2 L fluid (test code = 2821-7) chloride level (test code = 103 mmol/L 98-108 chloride level) CO2 (test code = CO2) 24 mmol/L 21-32 anion gap (test code = anion gap) 15.4 mEq/L 12.0-20.0 calcium level (test code = 8.8 mg/dL 8.6-10.0 calcium level) total protein (test code = total 7.1 g/dL 6.6-8.7 protein) albumin (test code = albumin) 4.2 g/dL 3.5-5.2 globulin (test code = globulin) 2.9 g/dL 1.5-4.5 A/G ratio (test code = A/G ratio) 1.4 >1.0 bilirubin,total (test code = 0.3 mg/dL 0.0-1.2 bilirubin,total) AST/SGOT (test code = AST/SGOT) 18 U/L 15-40 Alanine aminotransferase 32 U/L 0-41 [Enzymatic activity/volume] in Serum or Plasma (test code = 1742-6) Alkaline phosphatase [Enzymatic 91 U/L 40-130 activity/volume] in Serum or Plasma (test code = 6768-6) [facility] CountyCobalamin (Vitamin B12) [Mass/volume] in Serum or Plasma 2021-11-18 00:00:00 Test Item Value Reference Range Interpretation Comments vitamin B12, serum (test code = vitamin 330 B12, serum) [facility] W Auto Differential panel - [id number] 03:50:00 Test Item Value Reference Range Interpretation Comments white blood count (test code = 10.6 K/uL 4.0-12.3 white blood count) red blood count (test code = red 4.27 M/uL 3.80-5.80 blood count) hemoglobin (test code = 12.1 g/dL 11.7-17.2 hemoglobin) hematocrit (test code = 36.6 % 35.0-51.0 hematocrit) MCV [Entitic volume] (test code = 85.7 fL 83.0-100.0 76553-5) mean corpuscular hemoglobin (test 28.3 pg 26.8-33.4 code = mean corpuscular hemoglobin) mean corpuscular HGB conc (test 33.1 g/dL 30.0-35.0 code = mean corpuscular HGB conc) red cell distribution width (test 13.2 % 12.0-14.0 code = red cell distribution width) platelet count (test code = 242 K/uL 175-450 platelet count) mean platelet volume (test code = 9.0 fL 9.4-12.6 L mean platelet volume) Segmented neutrophils/100 72.9 % 44.7-82.4 leukocytes in Blood (test code = 78346-9) Immature granulocytes [#/volume] 0.10 K/uL 0.00-0.03 H in Blood (test code = 93320-7) lymphocyte% (test code = 19.0 % 10.0-50.0 lymphocyte%) mono % (test code = mono %) 7.1 % 3.9-13.4 eos % (test code = eos %) 0 % 0.0-6.4 Basophils/100 leukocytes in 0.1 % 0.2-1.2 L Unspecified specimen (test code = 39527-3) Band form neutrophils [#/volume] 7.75 K/uL 1.78-5.38 H in Blood (test code = 44561-3) Lymphocytes [#/volume] in 2.02 K/uL 1.32-3.57 Unspecified specimen by Automated count (test code = 47025-2) mono # (test code = mono #) 0.75 K/uL 0.30-0.82 eos # (test code = eos #) 0.00 K/uL 0.04-0.54 L basophil # (test code = basophil 0.01 K/uL 0.01-0.08 #) NRBC% (test code = NRBC%) 0 /100 WBC 0-0.2 NRBC# (test code = NRBC#) 0 K/uL [facility] metabolic 2000 panel - Serum or [id number] 03:50:00 Test Item Value Reference Range Interpretation Comments Glucose [Mass/volume] in Serum or 120 mg/dL 74-106 H Plasma (test code = 2345-7) Urea nitrogen [Mass/volume] in 20 mg/dL 6-20 Serum or Plasma (test code = 3094-0) osmolality calculated,serum (test 278 mOsm/kg 280-300 L code = osmolality calculated,serum) creatinine (test code = 0.89 mg/dL 0.70-1.20 creatinine) glomerular filtration rate (test >60.00 code = glomerular filtration rate) Urea nitrogen/Creatinine [Mass 22.5 12.0-20.0 H Ratio] in Serum or Plasma (test code = 3097-3) sodium level (test code = sodium 137 mmol/L 135-145 level) potassium level (test code = 3.6 mmol/L 3.5-5.2 potassium level) chloride level (test code = 106 mmol/L 98-108 chloride level) CO2 (test code = CO2) 25 mmol/L 21-32 anion gap (test code = anion gap) 9.6 mEq/L 12.0-20.0 L calcium level (test code = 8.0 mg/dL 8.6-10.0 L calcium level) [facility] method unspecified - [id number] 00:00:00NeutrophilsBandLymphocyteAtypical LymphMonocyteEosinophilBasophilMetamyelocyteMyelocytePromyelocyteBlastsNucleated Red Blood CellPlasma CellDifferential CommentAbs Neutrophil Count (Man)Abs Lymph Count(Man)Abs Monocyte Count (Man)Abs Eosinophil Count (Man)Abs Basophil Count (Man)Platelet EstimatePlatelet MorphologyHypochromasiaPoikilocytosisAnisocytosisMicrocytosisMacrocytosisSchisto cytesTarget CellsStomatocyteToxic GranulationBurr CellsHypersegmented PolysSmudge CellsScott [facility] W Auto Differential panel - Blood 2021-09-30 03:28:00 Test Item Value Reference Range Interpretation Comments white blood count (test code = 10.1 K/uL 4.0-12.3 white blood count) red blood count (test code = red 4.17 M/uL 3.80-5.80 blood count) hemoglobin (test code = 12.0 g/dL 11.7-17.2 hemoglobin) hematocrit (test code = 37.2 % 35.0-51.0 hematocrit) MCV [Entitic volume] (test code = 89.2 fL 83.0-100.0 08035-0) mean corpuscular hemoglobin (test 28.8 pg 26.8-33.4 code = mean corpuscular hemoglobin) mean corpuscular HGB conc (test 32.3 g/dL 30.0-35.0 code = mean corpuscular HGB conc) red cell distribution width (test 13.7 % 12.0-14.0 code = red cell distribution width) platelet count (test code = 241 K/uL 175-450 platelet count) mean platelet volume (test code = 9.0 fL 9.4-12.6 L mean platelet volume) Segmented neutrophils/100 85.9 % 44.7-82.4 H leukocytes in Blood (test code = 65400-9) Immature granulocytes [#/volume] 0.11 K/uL 0.00-0.03 H in Blood (test code = 80807-7) lymphocyte% (test code = 10.0 % 10.0-50.0 lymphocyte%) mono % (test code = mono %) 3.0 % 3.9-13.4 L eos % (test code = eos %) 0 % 0.0-6.4 Basophils/100 leukocytes in 0.0 % 0.2-1.2 L Unspecified specimen (test code = 56907-5) Band form neutrophils [#/volume] 8.69 K/uL 1.78-5.38 H in Blood (test code = 30813-3) Lymphocytes [#/volume] in 1.01 K/uL 1.32-3.57 L Unspecified specimen by Automated count (test code = 06633-3) mono # (test code = mono #) 0.30 K/uL 0.30-0.82 eos # (test code = eos #) 0.00 K/uL 0.04-0.54 L basophil # (test code = basophil 0.00 K/uL 0.01-0.08 L #) NRBC% (test code = NRBC%) 0 /100 WBC 0-0.2 NRBC# (test code = NRBC#) 0 K/uL [facility] metabolic 2000 panel - Serum or [id number] 03:28:00 Test Item Value Reference Range Interpretation Comments Glucose [Mass/volume] in Serum or 127 mg/dL 74-106 H Plasma (test code = 2345-7) Urea nitrogen [Mass/volume] in 19 mg/dL 6-20 Serum or Plasma (test code = 3094-0) osmolality calculated,serum (test 281 mOsm/kg 280-300 code = osmolality calculated,serum) creatinine (test code = 0.84 mg/dL 0.70-1.20 creatinine) glomerular filtration rate (test >60.00 code = glomerular filtration rate) Urea nitrogen/Creatinine [Mass 22.6 12.0-20.0 H Ratio] in Serum or Plasma (test code = 3097-3) sodium level (test code = sodium 139 mmol/L 135-145 level) potassium level (test code = 3.8 mmol/L 3.5-5.2 potassium level) chloride level (test code = 106 mmol/L 98-108 chloride level) CO2 (test code = CO2) 24 mmol/L 21-32 anion gap (test code = anion gap) 12.8 mEq/L 12.0-20.0 calcium level (test code = 8.3 mg/dL 8.6-10.0 L calcium level) [facility] method unspecified - [id number] 00:00:00NeutrophilsBandLymphocyteAtypical LymphMonocyteEosinophilBasophilMetamyelocyteMyelocytePromyelocyteBlastsNucleated Red Blood CellPlasma CellDifferential CommentAbs Neutrophil Count (Man)Abs Lymph Count(Man)Abs Monocyte Count (Man)Abs Eosinophil Count (Man)Abs Basophil Count (Man)Platelet EstimatePlatelet MorphologyHypochromasiaPoikilocytosisAnisocytosisMicrocytosisMacrocytosisSchisto cytesTarget CellsStomatocyteToxic GranulationBurr CellsHypersegmented PolysSmudge CellsUmmc Holmes CountyClostridioides difficile toxin A+B [Presence] in [id number] 08:35:00 Test Item Value Reference Range Interpretation Comments results (test code = results) Clostridioides difficile 027 presumptive [id number] strain DNA negative [Presence] in Stool by PRANAV with probe detection (test code = 18676-4) [facility] CountyLeukocytes [Presence] in Stool by Light microscopy 2021-09-29 08:35:00ResultsUmmc Holmes CountyCBC W Auto Differential panel - [id number] 02:50:00 Test Item Value Reference Range Interpretation Comments white blood count (test code = 12.0 K/uL 4.0-12.3 white blood count) red blood count (test code = red 4.17 M/uL 3.80-5.80 blood count) hemoglobin (test code = 11.9 g/dL 11.7-17.2 hemoglobin) hematocrit (test code = 36.2 % 35.0-51.0 hematocrit) MCV [Entitic volume] (test code = 86.8 fL 83.0-100.0 76058-3) mean corpuscular hemoglobin (test 28.5 pg 26.8-33.4 code = mean corpuscular hemoglobin) mean corpuscular HGB conc (test 32.9 g/dL 30.0-35.0 code = mean corpuscular HGB conc) red cell distribution width (test 13.6 % 12.0-14.0 code = red cell distribution width) platelet count (test code = 255 K/uL 175-450 platelet count) mean platelet volume (test code = 9.1 fL 9.4-12.6 L mean platelet volume) Segmented neutrophils/100 89.1 % 44.7-82.4 H leukocytes in Blood (test code = 38584-6) Immature granulocytes [#/volume] 0.09 K/uL 0.00-0.03 H in Blood (test code = 43437-5) lymphocyte% (test code = 7.4 % 10.0-50.0 L lymphocyte%) mono % (test code = mono %) 2.8 % 3.9-13.4 L eos % (test code = eos %) 0 % 0.0-6.4 Basophils/100 leukocytes in 0.0 % 0.2-1.2 L Unspecified specimen (test code = 41755-8) Band form neutrophils [#/volume] 10.72 K/uL 1.78-5.38 H in Blood (test code = 00779-1) Lymphocytes [#/volume] in 0.89 K/uL 1.32-3.57 L Unspecified specimen by Automated count (test code = 74819-0) mono # (test code = mono #) 0.34 K/uL 0.30-0.82 eos # (test code = eos #) 0.00 K/uL 0.04-0.54 L basophil # (test code = basophil 0.00 K/uL 0.01-0.08 L #) NRBC% (test code = NRBC%) 0 /100 WBC 0-0.2 NRBC# (test code = NRBC#) 0 K/uL [facility] metabolic 2000 panel - Serum or [id number] 02:50:00 Test Item Value Reference Range Interpretation Comments Glucose [Mass/volume] in Serum or 139 mg/dL 74-106 H Plasma (test code = 2345-7) Urea nitrogen [Mass/volume] in 21 mg/dL 6-20 H Serum or Plasma (test code = 3094-0) osmolality calculated,serum (test 283 mOsm/kg 280-300 code = osmolality calculated,serum) creatinine (test code = 0.92 mg/dL 0.70-1.20 creatinine) glomerular filtration rate (test >60.00 code = glomerular filtration rate) Urea nitrogen/Creatinine [Mass 22.8 12.0-20.0 H Ratio] in Serum or Plasma (test code = 3097-3) sodium level (test code = sodium 139 mmol/L 135-145 level) potassium level (test code = 3.8 mmol/L 3.5-5.2 potassium level) chloride level (test code = 105 mmol/L 98-108 chloride level) CO2 (test code = CO2) 24 mmol/L 21-32 anion gap (test code = anion gap) 13.8 mEq/L 12.0-20.0 calcium level (test code = 8.6 mg/dL 8.6-10.0 calcium level) [facility], method unspecified - [id number] 00:00:00NeutrophilsBandLymphocyteAtypical LymphMonocyteEosinophilBasophilMetamyelocyteMyelocytePromyelocyteBlastsNucleated Red Blood CellDifferential CommentAbs Neutrophil Count (Man)Abs Lymph Count (Man)Abs Monocyte Count (Man)Abs Eosinophil Count (Man)Abs Basophil Count (Man)Platelet EstimatePlatelet Morphol ogyHypochromasiaPoikilocytosisAnisocytosisMicrocytosisMacrocytosisTarget CellsBurr CellsHypersegmented PolysUmmc Holmes CountyBasic metabolic 2000 panel - Serum or [id number] 03:05:00 Test Item Value Reference Range Interpretation Comments glucose (test code = glucose) 125 mg/dL 74-106 H Urea nitrogen [Mass/volume] in 19 mg/dL 6-20 Serum or Plasma (test code = 3094-0) osmolality calculated,serum (test 281 mOsm/kg 280-300 code = osmolality calculated,serum) creatinine (test code = 0.85 mg/dL 0.70-1.20 creatinine) glomerular filtration rate (test >60.00 code = glomerular filtration rate) Urea nitrogen/Creatinine [Mass 22.4 12.0-20.0 H Ratio] in Serum or Plasma (test code = 3097-3) sodium level (test code = sodium 139 mmol/L 135-145 level) Potassium [Moles/volume] in Body 3.8 mmol/L 3.5-5.2 fluid (test code = 2821-7) chloride level (test code = 105 mmol/L 98-108 chloride level) CO2 (test code = CO2) 23 mmol/L 21-32 anion gap (test code = anion gap) 14.8 mEq/L 12.0-20.0 calcium level (test code = 9.0 mg/dL 8.6-10.0 calcium level) [facility] W Auto Differential panel - [id number] 03:05:00 Test Item Value Reference Range Interpretation Comments white blood count (test code = 14.1 K/uL 4.0-12.3 white blood count) red blood count (test code = red 4.35 M/uL 3.80-5.80 blood count) hemoglobin (test code = 12.5 g/dL 11.7-17.2 hemoglobin) hematocrit (test code = 37.8 % 35.0-51.0 hematocrit) MCV [Entitic volume] (test code = 86.9 fL 83.0-100.0 99023-6) mean corpuscular hemoglobin (test 28.7 pg 26.8-33.4 code = mean corpuscular hemoglobin) mean corpuscular HGB conc (test 33.1 g/dL 30.0-35.0 code = mean corpuscular HGB conc) red cell distribution width (test 13.7 % 12.0-14.0 code = red cell distribution width) platelet count (test code = 275 K/uL 175-450 platelet count) mean platelet volume (test code = 9.1 fL 9.4-12.6 L mean platelet volume) Segmented neutrophils/100 88.3 % 44.7-82.4 H leukocytes in Blood (test code = 00867-6) Immature granulocytes [#/volume] 0.09 K/uL 0.00-0.03 H in Blood (test code = 09519-5) lymphocyte% (test code = 8.2 % 10.0-50.0 L lymphocyte%) mono % (test code = mono %) 2.8 % 3.9-13.4 L eos % (test code = eos %) 0 % 0.0-6.4 Basophils/100 leukocytes in 0.1 % 0.2-1.2 L Unspecified specimen (test code = 03266-2) Band form neutrophils [#/volume] 12.42 K/uL 1.78-5.38 H in Blood (test code = 86808-1) Lymphocytes [#/volume] in 1.15 K/uL 1.32-3.57 L Unspecified specimen by Automated count (test code = 39557-4) mono # (test code = mono #) 0.40 K/uL 0.30-0.82 eos # (test code = eos #) 0.00 K/uL 0.04-0.54 L basophil # (test code = basophil 0.01 K/uL 0.01-0.08 #) NRBC% (test code = NRBC%) 0 /100 WBC 0-0.2 NRBC# (test code = NRBC#) 0 K/uL [facility]Different[facility] panel, method unspecified - [id number] 00:00:00NeutrophilsBandLymphocyteAtypical LymphMonocyteEosinophilBasophilMetamyelocyteMyelocytePromyelocyteBlastsNucleated Red Blood CellDifferential CommentAbs Neutrophil Count (Man)Abs Lymph Count (Man)Abs Monocyte Count (Man)Abs Eosinophil Count (Man)Abs Basophil Count (Man)Platelet EstimatePlatelet Morphol ogyHypochromasiaPoikilocytosisAnisocytosisMicrocytosisMacrocytosisTarget CellsBurr CellsScott Regional Hospital W Auto Differential panel - Blood 2021-09-25 10:10:00 Test Item Value Reference Range Interpretation Comments white blood count (test code = 6.9 K/uL 4.0-12.3 white blood count) red blood count (test code = red 4.84 M/uL 3.80-5.80 blood count) hemoglobin (test code = 13.8 g/dL 11.7-17.2 hemoglobin) hematocrit (test code = 42.0 % 35.0-51.0 hematocrit) MCV [Entitic volume] (test code = 86.8 fL 83-100 14836-4) mean corpuscular hemoglobin (test 28.5 pg 26.8-33.4 code = mean corpuscular hemoglobin) mean corpuscular HGB conc (test 32.9 g/dL 30-35 code = mean corpuscular HGB conc) red cell distribution width (test 13.9 % 12.0-14.0 code = red cell distribution width) platelet count (test code = 291 K/uL 175-450 platelet count) mean platelet volume (test code = 8.3 fL 9.4-12.6 L mean platelet volume) Segmented neutrophils/100 36.0 % 44.7-82.4 L leukocytes in Blood (test code = 42863-2) Immature granulocytes [#/volume] 0.0 K/uL 0.0-0.03 in Blood (test code = 04209-2) lymphocyte% (test code = 52.2 % 10.0-50.0 H lymphocyte%) mono % (test code = mono %) 8.4 % 3.9-13.4 eos % (test code = eos %) 2.7 % 0.0-6.4 Basophils/100 leukocytes in 0.6 % 0.2-1.2 Unspecified specimen (test code = 85292-2) Band form neutrophils [#/volume] 2.49 K/uL 1.78-5.38 in Blood (test code = 87501-1) Lymphocytes [#/volume] in 3.6 K/uL 1.32-3.57 H Unspecified specimen by Automated count (test code = 94217-6) mono # (test code = mono #) 0.58 K/uL 0.30-0.82 eos # (test code = eos #) 0.19 K/uL 0.04-0.54 basophil # (test code = basophil 0.04 K/uL 0.01-0.08 #) NRBC% (test code = NRBC%) 0 /100 WBC 0-0.2 NRBC# (test code = NRBC#) 0 K/uL [facility] CountyPT/[id number] 10:10:00 Test Item Value Reference Range Interpretation Comments prothrombin time (test code = 9.9 seconds 10.3-12.3 L prothrombin time) INR in Blood by Coagulation assay <0.94 (test code = 85883-1) [facility]Com[facility] 2000 [facility] - Serum or Plasma 2021-09-25 10:10:00 Test Item Value Reference Range Interpretation Comments Glucose [Mass/volume] in Serum or 162 mg/dL 74-106 H Plasma (test code = 2345-7) Urea nitrogen [Mass/volume] in 11 mg/dL 6-20 Serum or Plasma (test code = 3094-0) osmolality calculated,serum (test 279 mOsm/kg 280-300 L code = osmolality calculated,serum) creatinine (test code = 1.0 mg/dL 0.70-1.20 creatinine) glomerular filtration rate (test >60.00 code = glomerular filtration rate) Urea nitrogen/Creatinine [Mass 11.0 12-20 L Ratio] in Serum or Plasma (test code = 3097-3) sodium level (test code = sodium 138 mmol/L 135-145 level) potassium level (test code = 3.5 mmol/L 3.5-5.2 potassium level) chloride level (test code = 102 mmol/L 98-108 chloride level) CO2 (test code = CO2) 24 mmol/L 21-32 anion gap (test code = anion gap) 16.0 mEq/L 12-20 calcium level (test code = 9.4 mg/dL 8.6-10.0 calcium level) total protein (test code = total 7.2 g/dL 6.6-8.7 protein) albumin (test code = albumin) 4.6 g/dL 3.5-5.2 globulin (test code = globulin) 2.6 gm/dL A/G ratio (test code = A/G ratio) 1.8 >1.0 bilirubin,total (test code = 0.3 mg/dL 0.0-1.2 bilirubin,total) AST/SGOT (test code = AST/SGOT) 29 U/L 15-40 Alanine aminotransferase 53 U/L 0-41 H [Enzymatic activity/volume] in Serum or Plasma (test code = 1742-6) Alkaline phosphatase [Enzymatic 124 U/L 40-130 activity/volume] in Serum or Plasma (test code = 6768-6) [facility] CountyCreatine kinase [Enzymatic activity/volume] in Serum or [id number] 10:10:00 Test Item Value Reference Range Interpretation Comments creatine kinase (test code = creatine 243 U/L 20-200 H kinase) [facility]Differential panel, method unspecified - [id number] 00:00:00NeutrophilsBandLymphocyteAtypical LymphMonocyteEosinophilBasophilMetamyelocyteMyelocyteAbs Neutrophil Count (Man)Abs Lymph Count (Man)Abs Monocyte Count (Man)Abs Eosinophil Count (Man)Abs Basophil Count (Man)Platelet EstimateHypochromasiaMatagoBrentwood Behavioral Healthcare of Mississippipartial thromboplastin [id number] 00:00:00 Test Item Value Reference Range Interpretation Comments INR in Blood by Coagulation 23.6 seconds 22.5-37.0 assay (test code = 49032-6) [facility] CountyCreatine kinase.MB [Mass/volume] in Serum or Plasma 2021-09-25 00:00:00 Test Item Value Reference Range Interpretation Comments Creatine kinase.MB [Mass/volume] in 1.7 NG/mL 0.0-3.6 Serum or Plasma by Immunoassay (test code = 44120-0) [facility] Countyltrop [id number] 00:00:00 Test Item Value Reference Range Interpretation Comments Troponin T.cardiac [Mass/volume] in <0.01 0-0.011 Blood (test code = 77443-7) [facility]
[2023-02-11 00:35] LABS: Absolute Lymphocytes (CBC) 2.4 K/uL (0.7-4.9); Hematocrit 40.1 % (39.6-49.0); Lymphocytes % 42.7 % (15.3-44.8); MPV 6.6 fL (7.6-11.3); RBC Red Blood Cell Count 5.07 M/uL (4.33-5.43)
[2023-02-11 00:47] LABS: Albumin 3.5 g/dL (3.4-5.0); Bilirubin Total 0.3 mg/dL (0.2-1.0); Potassium 3.2 mEq/L (3.5-5.1); Protein, Total 7.2 g/dL (6.4-8.2)
[2023-02-11 01:52] LABS: Anisocytosis 1+; Blood Morphology Comment NOTED (NOT SEEN); Hypochromasia 1+; Platelet Estimate ADEQ; White Blood Cell Scan OK (OK)
--- NOTE | 2023-02-11 02:48 | EDPHYS ---
Physician Documentation [facility] Name: Piter Iglesias Age: 57 yrs Sex: Male : 1965 Arrival Date: 02/10/2023 Time: 22:34 Bed 19 Private MD: ED Physician Kaveh Olguin HPI: 02/11 00:33 This 57 yrs old Black Male presents to ER via EMS with complaints of Back pain, ms3 abdominal pain. 00:33 57-year-old male with past medical history of anxiety, spinal stenosis, hypertension, ms3 hyperlipidemia, asthma presents via clued EMS after bending down at the store and feeling his back pop. Patient states he feels numb below his lumbar spine. Patient states pain is 10/10. Patient states he is also having abdominal pain. Historical: - Allergies: 02/10 22:39 Nuts; mb9 - PMHx: 22:39 Anxiety; spinal stenosis; Hypertension; Hyperlipidemia; Asthma; mb9 - PSHx: 22:39 Cholecystectomy; intestinal Surgery; mb9 - Immunization history:: Adult Immunizations up to date. - Social history:: Smoking status: Patient denies any tobacco usage or history of. ROS: 02/11 00:33 Constitutional: Negative for fever, and chills. Neck: Negative for injury, pain, and ms3 swelling, Cardiovascular: Negative for chest pain, and palpitations. Respiratory: Negative for shortness of breath, cough, wheezing, and pleuritic chest pain. Abdomen/GI: Positive for abdominal pain, Negative for nausea, vomiting, and diarrhea. Back: Positive for pain at rest. All other systems are negative. Exam: 00:33 Constitutional: This is a well developed, well nourished patient who is awake, alert, ms3 and in no acute distress. Head/Face: Normocephalic, atraumatic. Neck: Trachea midline, no cervical lymphadenopathy. Supple, full range of motion without nuchal rigidity, or vertebral point tenderness. No Meningismus. Chest/axilla: Normal chest wall appearance and motion. Nontender with no deformity. Cardiovascular: Regular rate and rhythm with a normal S1 and S2. No gallops, murmurs, or rubs. Normal PMI, no JVD. No pulse deficits. Respiratory: Lungs have equal breath sounds bilaterally, clear to auscultation and percussion. No rales, rhonchi or wheezes noted. No increased work of breathing, no retractions or nasal flaring. Abdomen/GI: Soft, non-tender, with normal bowel sounds. No distension or tympany. No guarding or rebound. No evidence of tenderness throughout. Skin: Warm, dry with normal turgor. Normal color with no rashes, no lesions, and no evidence of cellulitis. MS/ Extremity: Pulses equal, no cyanosis. Neurovascular intact. Full, normal range of motion. 00:33 Neuro: Orientation: is normal, Mentation: is normal, Memory: is normal, Cranial nerves: CN II- XII are normal as tested, Cerebellar function: is grossly normal, Motor: is normal, Sensation: no obvious gross deficits. Vital Signs: 02/10 22:37 BP 142 / 96; Pulse 78; Resp 19 S; Temp 97.7; Pulse Ox 100% ; aa9 22:37 BP 142 / 96; Pulse 79; Resp 18; Pulse Ox 100% on R/A; Weight 84.82 kg; Height 5 ft. 3 mb9 in. ; 23:20 BP 160 / 62; Pulse 65; Resp 18 S; Pulse Ox 96% ; aa9 02/11 02:59 BP 148 / 79; Pulse 69; Resp 17; Temp 98.5(O); Pulse Ox 99% ; aa9 02/10 22:37 Body Mass Index 33.13 (84.82 kg, 160.02 cm) [facility] MDM: 02/10 23:25 Patient medically screened. ms3 02/11 00:33 Differential diagnosis: ruptured disc, sprain, vertebral fracture. ms3 03:22 Data reviewed: vital signs, nurses notes, lab test result(s), radiologic studies, CT ms3 scan, and as a result, I will discharge patient. I considered the following discharge prescriptions or medication management in the emergency department Medications were administered in the Emergency Department. See MAR. Historians other than the Patient: EMS: . Counseling: I had a detailed discussion with the patient and/or guardian regarding: the historical points, exam findings, and any diagnostic results supporting the discharge/admit diagnosis, lab results, radiology results, the need for outpatient follow up, to return to the emergency department if symptoms worsen or persist or if there are any questions or concerns that arise at home. Response to treatment: the patient's symptoms have markedly improved after treatment, and as a result, I will discharge patient. Special discussion: I discussed with the patient/guardian in detail that at this point there is no indication for admission to the hospital. It is understood, however, that if the symptoms persist or worsen the patient needs to return immediately for re-evaluation. 02/10 23:25 Order name: CBC with Diff; Complete Time: 02:17 ms3 02/10 23:25 Order name: CMP; Complete Time: 02:17 ms3 02/10 23:25 Order name: Lipase; Complete Time: 02:17 ms3 02/11 00:39 Order name: CBC Smear Scan; Complete Time: 02:17 EDMS 02/10 23:25 Order name: CT Abd/Pelvis - IV Contrast Only ms3 02/10 23:25 Order name: IV Saline Lock; Complete Time: 00:02 ms3 02/10 23:25 Order name: Labs collected and sent; Complete Time: 00:02 ms3 Administered Medications: 02:59 Drug: HYDROcodone-acetaminophen PO 5 mg-325 mg 1 tabs Route: PO; aa9 Disposition: 03:21 Chart complete. ms3 Disposition Summary: 02/11/23 02:47 Discharge Ordered Location: Home ms3 Condition: Stable ms3 Diagnosis - Low back pain ms3 - Abdominal pain, unspecified ms3 Followup: ms3 - With: Jluis Motley DO - When: 2 - 3 days - Reason: Recheck today's complaints Discharge Instructions: - Discharge Summary Sheet ms3 - Abdominal Pain, Adult ms3 - Acute Back Pain, Adult ms3 Forms: - Medication Reconciliation Form ms3 - Thank You Letter ms3 - Antibiotic Education ms3 - Prescription Opioid Use ms3 Prescriptions: - Cyclobenzaprine 10 mg Oral Tablet - take 1 tablet by ORAL route every 8 hours As needed; 30 tablet; Refills: 0, ms3 Product Selection Permitted Signatures: [facility] Kaveh Ross DO DO ms3 Laxmi Brown RN RN aa9 Marion James RN RN mb9 Corrections: (The following items were deleted from the chart) 02/10 22:39 22:39 Allergies: No Known Allergies; juliet carter9
--- NOTE | 2023-02-11 02:48 | ER ---
[facility]urse's Notes [facility] Name: Piter Iglesias Age: 57 yrs Sex: Male : 1965 Arrival Date: 02/10/2023 Time: 22:34 Bed 19 Private MD: Diagnosis: Low back pain;Abdominal pain, unspecified Presentation: 02/10 22:37 Chief complaint: EMS states: "Pt bent to pick something up and heard a pop in his left mb9 hip. Pt states it feels numb and tingling and can't feel his stomach. Pt states he can't ambulate at the moment". Coronavirus screen: Vaccine status: Patient reports being unvaccinated. Ebola Screen: No symptoms or risks identified at this time. Initial Sepsis Screen: Does the patient meet any 2 criteria? No. Patient's initial sepsis screen is negative. Does the patient have a suspected source of infection? No. Patient's initial sepsis screen is negative. Risk Assessment: Do you want to hurt yourself or someone else? Patient reports no desire to harm self or others. Onset of symptoms was February 10, 2023. 22:37 Method Of Arrival: EMS: [facility] mb9 22:37 Acuity: AISHA 4 mb9 23:56 Acuity: AISHA 3 mb9 Historical: - Allergies: 22:39 Nuts; mb9 - PMHx: 22:39 Anxiety; spinal stenosis; Hypertension; Hyperlipidemia; Asthma; mb9 - PSHx: 22:39 Cholecystectomy; intestinal Surgery; mb9 - Immunization history:: Adult Immunizations up to date. - Social history:: Smoking status: Patient denies any tobacco usage or history of. Screenin/27 02:49 [facility] ED Fall Risk Assessment (Adult) History of falling in the last 3 months, aa9 including since admission No falls in past 3 months (0 pts) Confusion or Disorientation No (0 pts) Intoxicated or Sedated No (0 pts) Impaired Gait No (0 pts) Mobility Assist Device Used No (0 pt) Altered Elimination No (0 pt) Score/Fall Risk Level 0 - 2 = Low Risk Oriented to surroundings, Maintained a safe environment. Abuse screen: Denies threats or abuse. Denies injuries from another. Nutritional screening: No deficits noted. Tuberculosis screening: No symptoms or risk factors identified. Assessment: 02/10 23:27 General: Appears uncomfortable, obese, Behavior is cooperative, anxious. Respiratory: aa9 Airway is patent Respiratory effort is even, unlabored. 02/11 00:00 Reassessment: Patient appears in no apparent distress at this time. Patient and/or aa9 family updated on plan of care and expected duration. Pain level reassessed. Patient is alert, oriented x 3, equal unlabored respirations, skin warm/dry/pink. 01:00 Reassessment: Patient appears in no apparent distress at this time. Patient and/or aa9 family updated on plan of care and expected duration. Pain level reassessed. Patient is alert, oriented x 3, equal unlabored respirations, skin warm/dry/pink. 02:50 Reassessment: Patient appears in no apparent distress at this time. Patient and/or aa9 family updated on plan of care and expected duration. Pain level reassessed. Patient is alert, oriented x 3, equal unlabored respirations, skin warm/dry/pink. 02:59 Reassessment: Patient appears in no apparent distress at this time. Patient and/or aa9 family updated on plan of care and expected duration. Pain level reassessed. Patient states symptoms have improved. Vital Signs: 02/10 22:37 BP 142 / 96; Pulse 78; Resp 19 S; Temp 97.7; Pulse Ox 100% ; aa9 22:37 BP 142 / 96; Pulse 79; Resp 18; Pulse Ox 100% on R/A; Weight 84.82 kg; Height 5 ft. 3 mb9 in. ; 23:20 BP 160 / 62; Pulse 65; Resp 18 S; Pulse Ox 96% ; aa9 02/11 02:59 BP 148 / 79; Pulse 69; Resp 17; Temp 98.5(O); Pulse Ox 99% ; aa9 02/10 22:37 Body Mass Index 33.13 (84.82 kg, 160.02 cm) mb9 ED Course: 02/10 22:36 Patient arrived in ED. mb9 22:36 Arm band placed on. mb9 22:37 Laxmi Brown, RN is Primary Nurse. aa9 22:39 Triage completed. mb9 22:39 Kaveh Olguin DO is Attending Physician. ms3 22:39 Placed in gown. Bed in low position. Call light in reach. Side rails up X 1. Client mb9 placed on continuous cardiac and pulse oximetry monitoring. NIBP monitoring applied. 22:40 No provider procedures requiring assistance completed. mb9 23:42 Missed attempt(s): 20 gauge in left antecubital area. Bleeding controlled, band aid aa9 applied, catheter tip intact. 02/11 00:01 Inserted saline lock: 22 gauge in right forearm, using aseptic technique. Blood aa9 collected. 00:02 CBC with Diff Sent. aa9 00:02 CMP Sent. aa9 00:02 Lipase Sent. aa9 01:34 CT Abd/Pelvis - IV Contrast Only In Process Unspecified. EDMS 02:46 Jluis Motley DO is Referral Physician. ms3 02:59 IV discontinued, intact, bleeding controlled, No redness/swelling at site. Pressure aa9 dressing applied. Administered Medications: 02:59 Drug: HYDROcodone-acetaminophen PO 5 mg-325 mg 1 tabs Route: PO; aa9 Medication: 02/10 22:39 VIS not applicable for this client. mb9 Output: 02/11 02:49 Urine: 1000ml (Voided); Total: 1000ml. aa9 Outcome: 02:47 Discharge ordered by . ms3 02:49 Condition: stable aa9 02:59 Discharged to home ambulatory. aa9 02:59 Discharge instructions given to patient, Instructed on discharge instructions, follow up and referral plans. medication usage, Demonstrated understanding of instructions, follow-up care, medications, Prescriptions given X 1. 03:00 Patient left the ED. aa9 Signatures: Dispatcher [employer] EDIA Kaveh Olguin DO DO ms3 Laxmi Brown RN RN aa9 Marion James RN RN mb9 Corrections: (The following items were deleted from the chart) 02/10 22:39 22:39 Allergies: No Known Allergies; mb9 mb9
[2023-02-11] MEDS ORDERED: HYDROCODONE/APAP 5/325 MG TAB ONE (03:02)
[2023-02-11 03:21] VITALS: BP 148/79; TEMP 98.5; O2SAT 99
--- NOTE | 2023-02-11 21:03 | RAD REPORT ---
EXAM DESCRIPTION: CT - Abdomen Pelvis W Contrast - 02/11/2023 6:38 am CLINICAL HISTORY: 57 years, Male, Back pain- heard a pop;Abd pain COMPARISON: 01/08/2023 TECHNIQUE: Contrast-enhanced images of the abdomen and pelvis were performed utilizing 3 mm slice th ickness at 3 mm interval reconstruction from the lung bases to the ischial tuberosities after the adm inistration of IV contrast. In addition multiplanar reformats in the coronal and sagittal plane were obtained and reviewed. This exam was performed according to our departmental dose-optimization protocol, which includes auto mated exposure control, adjustment of the mA and/or kV according to patient size and/or use of iterat tereza reconstruction technique. FINDINGS: Some of the images are comprised by breathing motion artifact limiting diagnostic value The lung bases demonstrate to be clear. The liver demonstrates slight decreased attenuation suggesting mild fatty infiltration. Otherwise the liver, pancreas, spleen and adrenal glands demonstrate to be unremarkable, no focal lesions are note d. Surgical clips within the gallbladder fossa correspond to previous cholecystectomy. No significant biliary duct dilatation. The kidneys demonstrate normal uptake of contrast media. No evidence for nephrolithiasis and/or hydro nephrosis. Grossly the unopacified stomach, small bowel and large bowel demonstrate to be within normal limits. There are surgical changes of the small bowel surgery along the right lower quadrant. There is no e vidence for bowel dilatation/or free air. The appendix is normal. There is mild fecal stasis. Surgi alejandro changes within the sigmoid colon with reanastomosis. The urinary bladder demonstrate to be unremarkable. The prostate gland demonstrate to be within nor mal limits. The aorta demonstrate minimal atherosclerotic disease of the aortic bifurcation. Ther e is no retroperitoneal lymphadenopathy. There is no evidence for ascites/or abnormal fluid collectio ns. The bone windows demonstrate degenerative change is the L5/S1 with a spondylolysis and spondylolisthe sis at L5/S1. IMPRESSION: No acute intra-abdominal process. Mild fatty infiltration of the liver. Status post cholecystectomy. Surgical changes within the small bowel and sigmoid colon. Mild fecal stasis. Degenerative change L5/S1 with a spondylolysis and spondylolisthesis at L5/S1. Electronically signed by: Mehdi Martin MD 02/11/2023 1:49 AM CDT Due to temporary technical issues with the PACS/Fluency reporting system, reports are being signed by the in house radiologists without review as a courtesy to insure prompt reporting. The interpreting radiologist is fully responsible for the content of the report.
== END 2023-02-11 03:00 | disposition home or self-care (01) ==
LOC: ER 22:34
DX: M54.50 Low back pain, unspecified (principal); R10.9 Unspecified abdominal pain; I10 Essential (primary) hypertension; Z91.018 Allergy to other foods
CPT/HCPCS: 85025; 36415; 83690; 80053; 74177; 99284; Q9967

== ENCOUNTER 2023-02-11 20:38 | Emergency (ER) | payer OTHER ==
--- OUTSIDE RECORDS SUMMARY | 2023-02-11 20:42 | XMS REPORT | Continuity of Care Document ---
:1965 Author Organization [facility] t Address [address] [place] [address] Care Team Providers Name Role Phone TIWARI [...] Date Expiration Date [place] [employer] DUAL [id number] 2022 ACCESS OPEN PPO 00:00:00 MED[place]ID [place] [id number] 2022 00:00:00 [facility] [id number] 2021 [facility] 00:00:00 (MEDICARE REPLACEMENT/ADVANTA GE - HMO) [place]: [facility] - [id number] FOR[facility]LY [facility] [id number] (MEDICARE REPLACEMENT/ADVANTA GE - PPO) [place] [id number] [place] [facility] [id number] 2021 (MEDICARE 00:00:00 REPLACEMENT/ADVANTA GE - HMO) [employer] (MEDICARE [id number] REPLACEMENT/ADVANTA GE - PPO) Problems Condition Condition [...] rs active active ity of problems problems [facility] Allergies, Adverse Reactions, Alerts Allergy Allergy Status Severity Reaction(s) Onset Inactive Treating Comm ents Source Name Type Date Date Clinician NO KNOWN Drug Active [facility] ALLERGIE Class ity of [facility] [place] [facility] Social History Social Habit Start Date Stop Date Quantity Comments Source Exposure to 2022-07-23 2022-08-02 Not sure [facility] SARS-CoV-2 (event) 00:00:00 02:07:00 Medica l Branch Sex Ass[birth year] At [birth year] [address] [facility] y of [place] 00:00:00 00:00:00 Medical Branch Smoking Status Start Date Stop Date Source Current Every Day Smoker [facility] Tobacco smoking consumption [facility] Branch Medications Ordered Filled Start Stop Current Ordering Indication Dosage Frequency Signature Comments Components Source Medication Medication Date Date Medication? Clinician (SIG) Name Name iopamidol 2021-09- No [id number] 75mL 75 mL, Univers (ISOVUE 1-15 11-15 Intravenou ity o f 370-500 mL) 10:15: 10:15 s, ONCE, 1 [place] injection 00 :00 dose, On Medica l 75 mL e Branch 08/02/22 at 0415, Routine ondansetron 2021-09 Yes [id number] 4mg Take 1 Univers (ZOFRAN) 4 1-15 tablet by ity of mg tablet 00:00: mouth [place] 00 every 8 Medical (eight) Branch hours [...] Name Influenza vaccine, Influenza vaccine, 2021-08-05 Completed [place] quadrivalent, quadrivalent, 12:11:00 Medical Group adjuvanted adjuvanted Vital Signs Vital Name Observation Time Observation Value Comments Source Heart rate 2022-08-02 11:30:00 93 /min [facility] Oxygen saturation in 2022-08-02 11:30:00 96 /min [facility] Arterial blood by [facility] Pulse oximetry Branch Systolic blood 2022-08-02 11:00:00 134 mm[facility]Hg[facility] blood 2022-08-02 11:00:00 97 mm[Hg] [facility] Respiratory rate 2022-08-02 11:00:00 21 /min [facility] Body temperature 2022-08-02 08:11:00 36.56 Blanca [facility] Body height 2022-08-02 08:11:00 160 cm [facility] Body weight 2022-08-02 08:11:00 79.379 kg [facility] BMI 2022-08-02 08:11:00 31.00 kg/m2 [facility] BP Diastolic 2022-05-05 00:00:00 89 mm[Hg] [facility] Height 2022-05-05 00:00:00 68 [in_i] [facility] BMI (Body Mass 2022-05-05 00:00:00 27.5 kg/m2 [facility] BP Systolic 2022-05-05 00:00:00 132 mm[Hg] [facility] Body Weight 2022-05-05 00:00:00 2891.2 [oz_av] [facility] BP Diastolic 2022-04-27 00:00:00 96 mm[Hg] [facility] Height 2022-04-27 00:00:00 68 [in_i] [facility] BMI (Body Mass 2022-04-27 00:00:00 26.5 kg/m2 [facility]) Group BP Systolic 2022-04-27 00:00:00 131 mm[Hg] [facility] Body Weight 2022-04-27 00:00:00 2792 [oz_av] [facility] BP Diastolic 2022-03-30 00:00:00 67 mm[Hg] [facility] Height 2022-03-30 00:00:00 68 [in_i] [facility] BMI (Body Mass 2022-03-30 00:00:00 26.5 kg/m2 [facility]) Group BP Systolic 2022-03-30 00:00:00 106 mm[Hg] [facility] Body Weight 2022-03-30 00:00:00 2784 [oz_av] [facility] BP Diastolic 2022-02-28 00:00:00 93 mm[Hg] [facility] Height 2022-02-28 00:00:00 68 [in_i] [facility] BMI (Body Mass 2022-02-28 00:00:00 26.5 kg/m2 [facility] Index) Group BP Systolic 2022-02-28 00:00:00 132 mm[Hg] [facility] Body Weight 2022-02-28 00:00:00 2784 [oz_av] [facility] BP Diastolic 2022-01-31 00:00:00 92 mm[Hg] [facility] Height 2022-01-31 00:00:00 68 [in_i] [facility] BMI (Body Mass 2022-01-31 00:00:00 26.8 kg/m2 [facility] BP Systolic 2022-01-31 00:00:00 128 mm[Hg] [facility] Body Weight 2022-01-31 00:00:00 2816 [oz_av] [facility] BP Diastolic 2022-01-03 00:00:00 87 mm[Hg] [facility] Height 2022-01-03 00:00:00 68 [in_i] [facility] BMI (Body Mass 2022-01-03 00:00:00 26.8 kg/m2 [facility]) Group BP Systolic 2022-01-03 00:00:00 124 mm[Hg] [facility] Body Weight 2022-01-03 00:00:00 2816 [oz_av] [facility] BP Diastolic 2021-12-06 00:00:00 85 mm[Hg] [facility] Height 2021-12-06 00:00:00 68 [in_i] [facility] BMI (Body Mass 2021-12-06 00:00:00 27.4 kg/m2 [facility]) Group BP Systolic 2021-12-06 00:00:00 131 mm[Hg] [facility] Body Weight 2021-12-06 00:00:00 2887 [oz_av] [facility] BP Diastolic 2021-11-18 00:00:00 85 mm[Hg] [facility] Height 2021-11-18 00:00:00 68 [in_i] [facility] BMI (Body Mass 2021-11-18 00:00:00 27.4 kg/m2 [facility]) Group BP Systolic 2021-11-18 00:00:00 133 mm[Hg] [facility] Body Weight 2021-11-18 00:00:00 2880 [oz_av] [facility] BP Diastolic 2021-10-05 00:00:00 89 mm[Hg] [facility] Height 2021-10-05 00:00:00 68 [in_i] [facility] BMI (Body Mass 2021-10-05 00:00:00 27.7 kg/m2 [facility]) Group BP Systolic 2021-10-05 00:00:00 124 mm[Hg] [facility] Body Weight 2021-10-05 00:00:00 2912 [oz_av] [facility] BP Diastolic 2021-08-24 00:00:00 78 mm[Hg] [facility] Height 2021-08-24 00:00:00 68 [in_i] [facility] BMI (Body Mass 2021-08-24 00:00:00 28.6 kg/m2 [facility]) Group BP Systolic 2021-08-24 00:00:00 122 mm[Hg] [facility] Body Weight 2021-08-24 00:00:00 188 [lb_av] [facility] BP Diastolic 2021-08-05 00:00:00 84 mm[Hg] [facility] Height 2021-08-05 00:00:00 68 [in_i] [facility] BMI (Body Mass 2021-08-05 00:00:00 27.5 kg/m2 [facility]) Group BP Systolic 2021-08-05 00:00:00 118 mm[Hg] [facility] Body Weight 2021-08-05 00:00:00 2896 [oz_av] [facility] Procedures Procedure Date / Time Performing Clinician Source Performed URINALYSIS 2022-08-02 10:17:00 Kierra Bautista [facility] CT ABDOMEN PELVIS W 2022-08-02 09:15:15 Kierra Bautista [facility] CONTRAST [facility] Branch LIPASE 2022-08-02 08:16:00 Kierra Bautista [facility] HEPATIC FUNCTION PANEL 2022-08-02 08:16:00 Kierra Bautista [facility] ([id number]) (ALB,T.PRO,BILI Medical Branch T,BU/BC,ALT,AST,ALK PHOS) BASIC METABOLIC PANEL (NA, 2022-08-02 08:16:00 Kierra Bautista [facility] K, CL, CO2, GLUCOSE, BUN, Medica l Branch CREATININE, CA) CBC WITH DIFF 2022-08-02 08:16:00 Kierra Bautista [facility] XR, tibia + fibula, 2 view 2022-04-27 00:00:00 [facility] XR, knee, 3 view 2022-04-27 00:00:00 [facility] XR, lumbosacral spine, 2 2022-04-27 00:00:00 [facility] view Group XR, thoracic spine, 2 view 2022-04-27 00:00:00 [facility] XR, shoulder, 2 or more 2022-04-27 00:00:00 [facility] CT, abdomen + pelvis, w/o 2022-04-27 00:00:00 [facility] ECG WITH INTERPRETATION 2021-08-05 00:00[facility]00 [facility], chest, 2 view 2021-08-05 00:00:00 [facility] Cardiac Catheterization 2018-03-18 00:00:00 [facility] Partial Resection of Colon 1999-09-18 00:00:00 [facility] Cholecyst[facility] Plan of Care Planned Activity Planned Date Details Comments Source Diagnostic Test 2022-05-05 CMP, serum or [facility] Pending 00:00:00 plasma [code = Group CMP, serum or plasma] Diagnostic Test 2022-05-05 urinalysis, [facility] Pending 00:00:00 complete [code = Group urinalysis, complete] Diagnostic Test 2022-05-05 microalbumin/creat [facility] Pending 00:00:00 inine, mass ratio, Group urine [code = microalbumin/creat inine, mass ratio, urine] Encounters Start End Encounter Admission Attending Care Care Encounter Source Date/Time Date/Time Type Type Clinicians Facility Department ID 2022-08-02 2022-08-02 Emergency X MICHELE RIABI ERT [id number] [facility] 02:08:00 06:26:00 KIERRA larose [facility] 2022-08-02 2022-08-02 Emergency Michele RIABI [id number] [facility] 02:08:00 06:26:00 Kierra BAI [id number] i [facility] [id number] [facility] [id number] [facility] 084 Branch 2022-06-13 2022-06-13 Outpatient Koudela_A [facility] [id number] -2021 [place] 00:00:00 00:00:00 0926 [facility] 2022-05-18 2022-05-18 Emergency ER Cruz, [facility] [id number] [place] 16:09:00 18:58:00 Halle -[id number] [facility] 2022-05-05 2022-05-05 Outpatient EL YARIEL, [facility] [id number] [place] 10:53:00 10:53:00 ARIEL -[id number] [facility] 2022-05-05 2022-05-05 Ari[place] Verala_[place] MMG [place] - [id number] 22 [place] 00:00:00 00:00:00 Discovery Yariel 0818 da PA-C: [address] [facility] [address], [place] [address] , Ph. 2022-04-27 2022-04-27 Outpatient UR YARIEL, [facility] [id number] [place] 11:14:00 11:14:00 ARIEL [id number] [facility] 2022-04-27 2022-04-27 [place] Saldivar_[place] - [id number] 22 [place] 00:00:00 00:00:00 Discovery Yariel 10 da PA-C: [address] [facility] [address], [place] [address] , Ph. 2022-04-18 2022-04-18 Emergency ER Mina, [facility] [id number] [place] 13:18:00 17:27:00 Parker -[id number] [facility] 2022-04-15 2022-04-15 Outpatient Koudela_A G [facility] [id number] -2021 [place] 00:00:00 00:00:00 0729 Medical Group 2022-03-30 2022-03-30 Ariel Koudela_A MMG [place] - [id number] 22 [place] 00:00:00 00:00:00 Discovery Yariel 13 da PA-C: [address] [facility] [address], [facility] [place] [address] , Ph. 2022-02-28 2022-02-28 Ariel Sanchezudela_[place] MM[place] - [id number] 22 [place] 00:00:00 00:00:00 Discovery Yariel 0613 da PA-C: [address] [facility] [address], [facility] [address] , Ph. 2022-02-25 2022-02-25 Emergency ER Iwona, [facility] [id number] [place] 13:30:00 19:22:00 Denise -[id number] [facility] 2022-02-05 2022-02-05 Outpatient Koudela_A G G [id number] -2021 [place] 12:33:00 12:33:00 0521 Medical Group 2022-01-31 2022-01-31 Outpatient AURELIO YARIEL, [facility] [id number] [place] 11:31:00 11:31:00 ARIEL -[id number] [facility] 2022-01-31 2022-01-31 [place] Koudela_[place] - [id number] 22 [place] 00:00:00 00:00:00 Discovery Yariel 0516 da PA-C: [address] [address], [place] [address] , Ph. 2022-01-12 2022-01-12 Outpatient AURELIO Fernandez, [facility] [id number] [place] 09:58:00 09:58:00 Shira -[id number] [facility] 2022-01-03 2022-01-03 Ari[place] Sanchezudela_[place] - [id number] 22 [place] 00:00:00 00:00:00 Discovery Yariel 0418 da PA-C: [address] [facility] [address] [address], [facility] [address] , Ph. 2021-12-17 2021-12-17 Outpatient Koudela_A [facility] [id number] -2021 [place] 06:11:00 06:11:00 0401 [facility] 2021-12-06 2021-12-06 Ari[place] Sanchezudela_[place] - [id number] 22 [place] 00:00:00 00:00:00 Discovery Yariel 0321 da PA-C: [address] [facility] [address], [place] [address] , Ph. 2021-12-02 2021-12-02 Outpatient EL Simmons, [facility] [id number] [place] 10:10:00 10:10:00 Adarsh -[id number] [facility] 2021-11-18 2021-11-18 Outpatient EL VÍCTORLA, [facility] [id number] [place] 10:39:00 10:39:00 ARIEL [id number] da [facility] 2021-11-18 2021-11-18 Ariel Verala_[place] [facility] [place] - [id number] 22 [place] 00:00:00 00:00:00 Discovery Yariel 0303 da PA-C: [address] [facility] [address], [facility] [place] [address] , Ph. 2021-11-17 2021-11-17 Outpatient EL Simmons, [facility] [id number] [place] 10:55:00 10:55:00 Adarsh -[id number] [facility] 2021-10-29 2021-10-29 Outpatient Koudela_A [facility] [id number] -2021 [place] 04:41:00 04:41:00 0211 [facility] 2021-10-27 2021-10-27 Outpatient Koudela_A MMG MMG [id number] -2021 [place] 02:05:00 02:05:00 0209 [facility] 2021-10-19 2021-10-19 Outpatient AURELIO Simmons, [facility] [id number] [place] 09:53:00 09:53:00 Adarsh -[id number] [facility] 2021-10-18 2021-10-18 Outpatient Koudela_A [facility] G [id number] -2021 [place] 11:04:00 11:04:00 0131 [facility] 2021-10-05 2021-10-05 Ari[place] Koudela_[place] - [id number] 22 [place] 00:00:00 00:00:00 Discovery Thu SaldivarC: [address] [place] [address] - [address] [place] [address] , Ph. 2021-09-26 2021-10-01 Inpatient ER Jimenez, [facility] [id number] [place] 12:55:00 14:03:00 Jacy -[id number] [facility] 2021-09-25 2021-09-25 Emergency ER MONTANEZ, [facility] [id number] [place] 11:01:00 14:06:00 AINTA -[id number] [facility] 2021-08-25 2021-08-25 Outpatient Koudela_A [facility] [id number] -2020 [place] 05:53:00 05:53:00 1208 [facility] 2021-08-24 2021-08-24 Miah Koudela_[place] - [id number] 21 [place] 00:00:00 00:00:00 Bhargav Johnson MD: Medical Medica [address], [place] [address] , Ph. [phone] 2021-08-09 2021-08-09 Outpatient Koudela_A [facility] [id number] -2020 [place] 04:17:00 04:17:00 1122 [facility] Medical Group 2021-08-06 2021-08-06 Outpatient Koudela_A [facility] G [id number] -2020 [place] 10:50:00 10:50:00 1119 [facility] Medical Group 2021-08-05 2021-08-05 Ari[place] Koudela_[place] - [id number] 21 [place] 00:00:00 00:00:00 Discovery Yariel 1118 da PA-C: 600 [facility] - [address], [place] [address] , Ph. 2021-08-04 2021-08-04 Outpatient Koudela_A MM[facility] [id number] -2020 [place] 05:51:00 05:51:00 1117 da Medical Group 2021-08-03 2021-08-03 Outpatient Zuniga_F MM[facility] [id number]- 2020 [place] 01:34:00 01:34:00 1116 da Medical Group 2021-05-29 2021-05-29 Emergency ER BA, JORGE A [facility] [id number] [place] 07:18:00 12:30:00 -[id number] [facility] 2021 2021 Emergency ER ROJAS, [facility] [id number] [place] 21:16:00 22:23:00 WAS -[id number] [facility] 2021-04-05 2021-04-05 Outpatient Zuniga_F [facility] [id number]- 2020 [place] 02:45:00 02:45:00 0719 Medical Group Results Test Description Test Time Test Comments Results Result Comments Source Urinalysis complete W Reflex Culture panel - Urine 2022-04-18 0 09:29:00 Test Item Value Reference Range Interpretation Comme nts Color of Urine by Auto (test code = 27425-4) yellow Appearance of Urine (test code = 5767-9) clear clear Glucose [Presence] in Urine by Automated test strip negative ne gative (test code = 64123-3) Bilirubin.total [Mass/volume] in Urine (test code = negative ne gative 1978-02) Ketones [Mass/volume] in Urine by Automated test strip trace negative (test code = 42246-1) Specific gravity of Urine by Automated test strip (test 1.027 1.003-1.030 code = 35357-7) blood urine (test code = blood urine) negative negative pH of Urine (test code = 2756-5) 6.000 5-9 protein urine (UA) (test code = protein urine (UA)) =1+ (50 ne gative H Urobilinogen [Presence] in Urine (test code = 53493-2) =2.0 0.2-1.0 H Nitrite [Presence] in Urine by Test strip (test code = negative negative 5802-4) Leukocyte esterase [Presence] in Urine by Automated negative ne gative test strip (test code = 02695-9) Erythrocytes [#/volume] in Urine by Automated count =1-5 0- 5 (test code = 798-9) Leukocytes [#/area] in Urine sediment by Automated =1-5 0-5 count (test code = 10468-9) Epithelial cells [Presence] in Urine sediment by Light <1 0-5 microscopy (test code = 18073-0) Bacteria identified in Urine by Culture (test code = none detected none detect 630-4) Casts [#/area] in Urine sediment by Automated count none detected n one detect (test code = 79775-5) urine culture added? (test code = urine culture added?) [facility] Auto Differential panel - [id number] 09:29:00 Test Item Value Reference Range Interpretation Comments white blood count (test code = 6.2 K/uL 4.0-12.3 white blood count) red blood count (test code = red 4.90 M/uL 3.80-5.80 blood count) hemoglobin (test code = 14.1 g/dL 11.7-17.2 hemoglobin) hematocrit (test code = 43.3 % 35.0-51.0 hematocrit) MCV [Entitic volume] (test code = 88.4 fL 83.0-100.0 10464-9) mean corpuscular hemoglobin (test 28.8 pg 26.8-33.4 [...] 44.7-82.4 leukocytes in Blood (test code = 62712-4) Immature granulocytes [#/volume] 0.01 K/uL 0.00-0.03 in Blood (test code = 61687-8) lymphocyte% (test code = 32.5 % 10.0-50.0 lymphocyte%) mono % (test code = mono %) 11.7 % 3.9-13.4 eos % (test code = eos %) 2.1 % 0.0-6.4 basophil % (test code = basophil 0.6 % 0.2-1.2 %) Band form neutrophils [#/volume] 3.30 K/uL 1.78-5.38 in Blood (test code = 31599-0) Lymphocytes [#/volume] in Specimen 2.03 K/uL 1.32-3.57 by Automated count (test code = 47940-3) mono # (test code = mono #) 0.73 K/uL 0.30-0.82 eos # (test code = eos #) 0.13 K/uL 0.04-0.54 basophil # (test code = basophil 0.04 K/uL 0.01-0.08 #) NRBC% (test code = NRBC%) 0 /100 WBC 0-0.2 NRBC# (test code = NRBC#) 0 K/uL [facility], method unspecified - [id number] 09:29:00NeutrophilsBandLymphocyteAtypical LymphMonocyteEosinophilBasophilAbs Neutrophil Count (Man)Abs LymphCount (Man)Abs Monocyte Count (Man)Abs Eosinophil Count (Man)Abs Basophil Count (Man)Platelet EstimatePlatelet MorphologyHypochromasiaPoikilocytosisAnisocytosisStomatocyteMat[facility]orda Medical GroupComprehensive metabolic 2000 panel - Serum or [id number] 09:29:00 Test Item Value Reference Range Interpretation [...] Serum or Plasma (test code = 6768-6) [facility] [Enzymatic activity/volume] in Serum or Plasma 2022-04-27 00:00:00 Test Item Value Reference Range Interpretation Comments Amylase [Enzymatic activity/volume] in 62 U/L 28-100 Serum or Plasma (test code = 1798-8) [facility] [Enzymatic activity/volume] in Serum or Plasma 2022-04-27 00:00:00 Test Item Value Reference Range Interpretation Comments lipase (test code = lipase) 41 U/L 13-60 [facility]inalysis complete panel - [id number] 12:30:00 Test Item Value Reference Range Interpretation Comments Color of Urine by Auto (test light yellow code = 36365-0) Appearance of Urine (test code clear clear = 5767-9) Glucose [Presence] in Urine by negative negative Automated test strip (test code = 42941-6) Bilirubin.total [Mass/volume] negative negative in Urine (test code = 1978-6) Ketones [Mass/volume] in Urine negative negative by Automated test strip (test code = 95356-7) Specific gravity of Urine by 1.029 1.003-1.030 Automated test strip (test code = 66655-3) blood urine (test code = blood negative negative urine) pH of Urine (test code = 7.000 5-9 2756-5) protein urine (UA) (test code = negative negative protein urine (UA)) Urobilinogen [Presence] in normal 0.2-1.0 Urine (test code = 86225-6) Nitrite [Presence] in Urine by negative negative Test strip (test code = 5802-4) Leukocyte esterase [Presence] negative negative in Urine by Automated test strip (test code = 32286-8) Erythrocytes [#/volume] in <1 0-5 Urine by Automated count (test code = 798-9) Leukocytes [#/area] in Urine <1 0-5 sediment by Automated count (test code = 69427-2) Epithelial cells [Presence] in <1 0-5 Urine sediment by Light microscopy (test code = 25908-4) Bacteria identified in Urine by none detected none detect Culture (test code = 630-4) Casts [#/area] in Urine none detected none detect sediment by Automated count (test code = 02947-8) urine culture added? (test code no = urine culture added?) [facility] complete panel - [id number] 12:30:00 Test Item Value Reference Range Interpretation Comments Color of Urine by Auto (test light yellow code = 08570-2) Appearance of Urine (test code clear clear = 5767-9) Glucose [Presence] in Urine by negative negative Automated test strip (test code = 47486-4) Bilirubin.total [Mass/volume] negative negative in Urine (test code = 1978-6) Ketones [Mass/volume] in Urine negative negative by Automated test strip (test code = 99894-4) Specific gravity of Urine by 1.029 1.003-1.030 Automated test strip (test code = 56563-2) blood urine (test code = blood negative negative urine) pH of Urine (test code = 7.000 5-9 2756-5) protein urine (UA) (test code = negative negative protein urine (UA)) Urobilinogen [Presence] in normal 0.2-1.0 Urine (test code = 50163-5) Nitrite [Presence] in Urine by negative negative Test strip (test code = 5802-4) Leukocyte esterase [Presence] negative negative in Urine by Automated test strip (test code = 75429-9) Erythrocytes [#/volume] in <1 0-5 Urine by Automated count (test code = 798-9) Leukocytes [#/area] in Urine <1 0-5 sediment by Automated count (test code = 53380-6) Epithelial cells [Presence] in <1 0-5 Urine sediment by Light microscopy (test code = 99958-8) Bacteria identified in Urine by none detected none detect Culture (test code = 630-4) Casts [#/area] in Urine none detected none detect sediment by Automated count (test code = 62799-8) urine culture added? (test code no = urine culture added?) [facility] and Indirect antibody screen panel - Blood 2022-04-18 11:39:00 Test Item Value Reference Range Interpretation Comments Rh [Type] in Blood (test code = 4+ 59255-2) ABO and Rh group panel - Blood A positive (test code = 22122-1) [facility] and Indirect antibody screen panel - Blood 2022-04-18 11:39:00 Test Item Value Reference Range Interpretation Comments Rh [Type] in Blood (test code = 4+ 52955-7) ABO and Rh group panel - Blood A positive (test code = 88886-5) [facility] by Automated [id number] 11:34:00 Test Item Value Reference Range Interpretation Comments white blood count (test code = 6.5 K/uL 4.0-12.3 white blood count) red blood count (test code = red 4.52 M/uL 3.80-5.80 blood count) hemoglobin (test code = hemoglobin) 13.5 g/dL 11.7-17.2 hematocrit (test code = hematocrit) 39.6 % 35.0-51.0 MCV [Entitic volume] (test code = 87.6 fL 83.0-100.0 07620-8) mean corpuscular hemoglobin (test 29.9 pg 26.8-33.4 [...] 8.0 fL 9.4-12.6 L mean platelet volume) [facility]/[id number] 11:34:00 Test Item Value Reference Range Interpretation Comments prothrombin time (test code = 9.9 seconds 10.3-12.3 L prothrombin time) INR in Blood by Coagulation assay <0.94 (test code = 81611-5) [facility]oplastin [id number] 11:34:00 Test Item Value Reference Range Interpretation Comments INR in Blood by Coagulation 24.5 seconds 22.5-37.0 assay (test code = 98408-6) [facility]Com[facility] 2000 panel - Serum or [...] Serum or Plasma (test code = 6768-6) [facility] CountyCreatine kinase [Enzymatic activity/volume] in Serum or [id number] 11:34:00 Test Item Value Reference Range Interpretation Comments creatine kinase (test code = creatine 192 U/L 20-200 kinase) [facility] panel - Blood by Automated [id number] 11:34:00 Test Item Value Reference Range Interpretation Comments white blood count (test code = 6.5 K/uL 4.0-12.3 white blood count) red blood count (test code = red 4.52 M/uL 3.80-5.80 blood count) hemoglobin (test code = hemoglobin) 13.5 g/dL 11.7-17.2 hematocrit (test code = hematocrit) 39.6 % 35.0-51.0 MCV [Entitic volume] (test code = 87.6 fL 83.0-100.0 50344-0) mean corpuscular hemoglobin (test 29.9 pg 26.8-33.4 [...] 8.0 fL 9.4-12.6 L mean platelet volume) [facility]PT/[id number] 11:34:00 Test Item Value Reference Range Interpretation Comments prothrombin time (test code = 9.9 seconds 10.3-12.3 L prothrombin time) INR in Blood by Coagulation assay <0.94 (test code = 47781-2) [facility]in [id number] 11:34:00 Test Item Value Reference Range Interpretation Comments INR in Blood by Coagulation 24.5 seconds 22.5-37.0 assay (test code = 95874-3) [facility] 2000 panel - Serum or [...] Serum or Plasma (test code = 6768-6) [facility] kinase [Enzymatic activity/volume] in Serum or [id number] 11:34:00 Test Item Value Reference Range Interpretation Comments creatine kinase (test code = creatine 192 U/L 20-200 kinase) [facility] W Auto Differential panel - [id number] 09:45:00 Test Item Value Reference Range Interpretation Comments white blood count (test code = 5.6 K/uL 4.0-12.3 white blood count) red blood count (test code = red 4.27 M/uL 3.80-5.80 blood count) hemoglobin (test code = 12.6 g/dL 11.7-17.2 hemoglobin) hematocrit (test code = 38.2 % 35.0-51.0 hematocrit) MCV [Entitic volume] (test code = 89.5 fL 83.0-100.0 62874-6) mean corpuscular hemoglobin (test 29.5 pg 26.8-33.4 [...] 44.7-82.4 leukocytes in Blood (test code = 90850-8) Immature granulocytes [#/volume] 0.01 K/uL 0.00-0.03 in Blood (test code = 09527-9) lymphocyte% (test code = 36.8 % 10.0-50.0 lymphocyte%) mono % (test code = mono %) 11.7 % 3.9-13.4 eos % (test code = eos %) 3.6 % 0.0-6.4 Basophils/100 leukocytes in 0.9 % 0.2-1.2 Specimen (test code = 94596-1) Band form neutrophils [#/volume] 2.64 K/uL 1.78-5.38 in Blood (test code = 90825-8) Lymphocytes [#/volume] in Specimen 2.07 K/uL 1.32-3.57 by Automated count (test code = 09813-3) mono # (test code = mono #) 0.66 K/uL 0.30-0.82 eos # (test code = eos #) 0.20 K/uL 0.04-0.54 basophil # (test code = basophil 0.05 K/uL 0.01-0.08 #) NRBC% (test code = NRBC%) 0 /100 WBC 0-0.2 NRBC# (test code = NRBC#) 0 K/uL [facility] 2000 panel - Serum or [...] Serum or Plasma (test code = 6768-6) [facility] County[facility] 1996 panel - Serum or [id number] 09:45:00 Test Item Value Reference Range Interpretation Comments cholesterol level (test code = 113 mg/dL 150-200 L cholesterol level) triglycerides level (test code = 148 mg/dL <150 triglycerides level) HDL cholesterol (test code = HDL 36 mg/dL >55 L cholesterol) LDL cholesterol direct (test code = 61 mg/dL <100 LDL cholesterol direct) cholesterol risk ratio (test code = 3.138 cholesterol risk ratio) [facility] County[facility]inalysis complete W Reflex Culture panel - Urine 2022-01-31 09:45:00 Test Item Value Reference Range Interpretation Comments Color of Urine by Auto (test yellow code = 00113-6) Appearance of Urine (test code clear clear = 5767-9) Glucose [Presence] in Urine by negative negative Automated test strip (test code = 52374-5) Bilirubin.total [Mass/volume] negative negative in Urine (test code = 1978-6) Ketones [Mass/volume] in Urine negative negative by Automated test strip (test code = 84756-2) Specific gravity of Urine by 1.031 1.003-1.030 H Automated test strip (test code = 53007-1) blood urine (test code = blood negative negative urine) pH of Urine (test code = 6.000 5-9 2756-5) protein urine (UA) (test code = =1+ (30 negative H protein urine (UA)) Urobilinogen [Presence] in =2.0 0.2-1.0 H Urine (test code = 23574-9) Nitrite [Presence] in Urine by negative negative Test strip (test code = 5802-4) Leukocyte esterase [Presence] negative negative in Urine by Automated test strip (test code = 60749-5) Erythrocytes [#/volume] in =1-5 0-5 Urine by Automated count (test code = 798-9) Leukocytes [#/area] in Urine <1 0-5 sediment by Automated count (test code = 93115-4) Epithelial cells [Presence] in <1 0-5 Urine sediment by Light microscopy (test code = 78272-3) Bacteria identified in Urine by none detected none detect Culture (test code = 630-4) Casts [#/area] in Urine =2-5 none detect sediment by Automated count (test code = 66341-5) urine culture added? (test code no = urine culture added?) [facility]Different[facility] panel, method unspecified - [id number] 00:00:00NeutrophilsBandLymphocyteAtypical LymphMonocyteEosinophilBasophilMetamyelocyteAbs Neutrophil Count (Man)Abs Lymph Count (Man)Abs Monocyte Count (Man)Abs Eosinophil Count (Man)Abs Basophil Count (Man)Platelet EstimatePlatelet MorphologyMacrocytosisMemorial Hospital [facility] Hemoglobin A1c [Mass/volume] in [id number] 00:00:00 Test Item Value Reference Range Interpretation Comments Hemoglobin A1c [Mass/volume] in Blood 5.7 % 4.0-6.0 (test code = 57531-9) [facility]Com[facility] 2000 panel - Serum or [...] Serum or Plasma (test code = 6768-6) [facility] CountyCobalamin (Vitamin B12) [Mass/volume] in Serum or Plasma 2021-11-18 00:00:00 Test Item Value Reference Range Interpretation Comments vitamin B12, serum (test code = vitamin 330 B12, serum) [facility] W Auto Differential panel - [id number] 03:50:00 Test Item Value Reference Range Interpretation Comments white blood count (test code = 10.6 K/uL 4.0-12.3 white blood count) red blood count (test code = red 4.27 M/uL 3.80-5.80 blood count) hemoglobin (test code = 12.1 g/dL 11.7-17.2 hemoglobin) hematocrit (test code = 36.6 % 35.0-51.0 hematocrit) MCV [Entitic volume] (test code = 85.7 fL 83.0-100.0 34539-3) mean corpuscular hemoglobin (test 28.3 pg 26.8-33.4 [...] 44.7-82.4 leukocytes in Blood (test code = 89362-2) Immature granulocytes [#/volume] 0.10 K/uL 0.00-0.03 H in Blood (test code = 24298-6) lymphocyte% (test code = 19.0 % 10.0-50.0 lymphocyte%) mono % (test code = mono %) 7.1 % 3.9-13.4 eos % (test code = eos %) 0 % 0.0-6.4 Basophils/100 leukocytes in 0.1 % 0.2-1.2 L Unspecified specimen (test code = 21343-3) Band form neutrophils [#/volume] 7.75 K/uL 1.78-5.38 H in Blood (test code = 75882-3) Lymphocytes [#/volume] in 2.02 K/uL 1.32-3.57 Unspecified specimen by Automated count (test code = 85672-4) mono # (test code = mono #) 0.75 K/uL 0.30-0.82 eos # (test code = eos #) 0.00 K/uL 0.04-0.54 L basophil # (test code = basophil 0.01 K/uL 0.01-0.08 #) NRBC% (test code = NRBC%) 0 /100 WBC 0-0.2 NRBC# (test code = NRBC#) 0 K/uL [facility] metabolic 2000 panel - Serum or [id number] 03:50:00 Test Item Value Reference Range Interpretation [...] = 8.0 mg/dL 8.6-10.0 L calcium level) [facility]Differential panel, method unspecified - [id number] 00:00:00NeutrophilsBandLymphocyteAtypical LymphMonocyteEosinophilBasophilMetamyelocyteMyelocytePromyelocyteBlastsNucleated Red Blood CellPlasma CellDifferential CommentAbs Neutrophil Count (Man)Abs Lymph Count(Man)Abs Monocyte Count (Man)Abs Eosinophil Count (Man)Abs Basophil Count (Man)Platelet EstimatePlatelet MorphologyHypochromasiaPoikilocytosisAnisocytosisMicrocytosisMacrocytosisSchisto cytesTarget CellsStomatocyteToxic GranulationBurr CellsHypersegmented PolysSmudge CellsNoxubee General Hospital W Auto Differential panel - Blood [...] volume] (test code = 89.2 fL 83.0-100.0 42085-0) mean corpuscular hemoglobin (test 28.8 pg 26.8-33.4 [...] H leukocytes in Blood (test code = 89280-7) Immature granulocytes [#/volume] 0.11 K/uL 0.00-0.03 H in Blood (test code = 41608-2) lymphocyte% (test code = 10.0 % 10.0-50.0 lymphocyte%) mono % (test code = mono %) 3.0 % 3.9-13.4 L eos % (test code = eos %) 0 % 0.0-6.4 Basophils/100 leukocytes in 0.0 % 0.2-1.2 L Unspecified specimen (test code = 36943-8) Band form neutrophils [#/volume] 8.69 K/uL 1.78-5.38 H in Blood (test code = 22846-4) Lymphocytes [#/volume] in 1.01 K/uL 1.32-3.57 L Unspecified specimen by Automated count (test code = 07118-9) mono # (test code = mono #) 0.30 K/uL 0.30-0.82 eos # (test code = eos #) 0.00 K/uL 0.04-0.54 L basophil # (test code = basophil 0.00 K/uL 0.01-0.08 L #) NRBC% (test code = NRBC%) 0 /100 WBC 0-0.2 NRBC# (test code = NRBC#) 0 K/uL [facility] metabolic 2000 panel - Serum or [id number] 03:28:00 Test Item Value Reference Range Interpretation [...] = 8.3 mg/dL 8.6-10.0 L calcium level) [facility]Different[facility] panel, method unspecified - [id number] 00:00:00NeutrophilsBandLymphocyteAtypical LymphMonocyteEosinophilBasophilMetamyelocyteMyelocytePromyelocyteBlastsNucleated Red Blood CellPlasma CellDifferential CommentAbs Neutrophil Count (Man)Abs Lymph Count(Man)Abs Monocyte Count (Man)Abs Eosinophil Count (Man)Abs Basophil Count (Man)Platelet EstimatePlatelet MorphologyHypochromasiaPoikilocytosisAnisocytosisMicrocytosisMacrocytosisSchisto cytesTarget CellsStomatocyteToxic GranulationBurr CellsHypersegmented PolysSmudge CellsMemorial Hospital At Stone CountyClostridioides difficile toxin A+B [Presence] in [id number] 08:35:00 Test Item Value Reference Range Interpretation Comments results (test code = results) Clostridioides difficile 027 presumptive [id number] strain DNA negative [Presence] in Stool by PRANAV with probe detection (test code = 39820-9) [facility] CountyLeukocytes [Presence] in Stool by Light microscopy 2021-09-29 08:35:00ResultsMem[facility] Hospital At Stone CountyCBC W Auto Differential panel - [id number] 02:50:00 Test Item Value Reference Range Interpretation Comments white blood count (test code = 12.0 K/uL 4.0-12.3 white blood count) red blood count (test code = red 4.17 M/uL 3.80-5.80 blood count) hemoglobin (test code = 11.9 g/dL 11.7-17.2 hemoglobin) hematocrit (test code = 36.2 % 35.0-51.0 hematocrit) MCV [Entitic volume] (test code = 86.8 fL 83.0-100.0 53803-1) mean corpuscular hemoglobin (test 28.5 pg 26.8-33.4 [...] H leukocytes in Blood (test code = 20854-6) Immature granulocytes [#/volume] 0.09 K/uL 0.00-0.03 H in Blood (test code = 45025-0) lymphocyte% (test code = 7.4 % 10.0-50.0 L lymphocyte%) mono % (test code = mono %) 2.8 % 3.9-13.4 L eos % (test code = eos %) 0 % 0.0-6.4 Basophils/100 leukocytes in 0.0 % 0.2-1.2 L Unspecified specimen (test code = 69417-9) Band form neutrophils [#/volume] 10.72 K/uL 1.78-5.38 H in Blood (test code = 89059-7) Lymphocytes [#/volume] in 0.89 K/uL 1.32-3.57 L Unspecified specimen by Automated count (test code = 79482-8) mono # (test code = mono #) 0.34 K/uL 0.30-0.82 eos # (test code = eos #) 0.00 K/uL 0.04-0.54 L basophil # (test code = basophil 0.00 K/uL 0.01-0.08 L #) NRBC% (test code = NRBC%) 0 /100 WBC 0-0.2 NRBC# (test code = NRBC#) 0 K/uL [facility] metabolic 2000 panel - Serum or [id number] 02:50:00 Test Item Value Reference Range Interpretation [...] code = 8.6 mg/dL 8.6-10.0 calcium level) [facility]Differential panel, method unspecified - [id number] 00:00:00NeutrophilsBandLymphocyteAtypical LymphMonocyteEosinophilBasophilMetamyelocyteMyelocytePromyelocyteBlastsNucleated Red Blood CellDifferential CommentAbs Neutrophil Count (Man)Abs Lymph Count (Man)Abs Monocyte Count (Man)Abs Eosinophil Count (Man)Abs Basophil Count (Man)Platelet EstimatePlatelet Morphol ogyHypochromasiaPoikilocytosisAnisocytosisMicrocytosisMacrocytosisTarget CellsBurr CellsHypersegmented PolysMemorial Hospital At Stone CountyBasic metabolic 2000 panel - Serum or [id number] 03:05:00 Test Item Value Reference Range Interpretation [...] code = 9.0 mg/dL 8.6-10.0 calcium level) [facility] W Auto Differential panel - [id number] 03:05:00 Test Item Value Reference Range Interpretation Comments white blood count (test code = 14.1 K/uL 4.0-12.3 white blood count) red blood count (test code = red 4.35 M/uL 3.80-5.80 blood count) hemoglobin (test code = 12.5 g/dL 11.7-17.2 hemoglobin) hematocrit (test code = 37.8 % 35.0-51.0 hematocrit) MCV [Entitic volume] (test code = 86.9 fL 83.0-100.0 56022-5) mean corpuscular hemoglobin (test 28.7 pg 26.8-33.4 [...] H leukocytes in Blood (test code = 87382-9) Immature granulocytes [#/volume] 0.09 K/uL 0.00-0.03 H in Blood (test code = 58662-5) lymphocyte% (test code = 8.2 % 10.0-50.0 L lymphocyte%) mono % (test code = mono %) 2.8 % 3.9-13.4 L eos % (test code = eos %) 0 % 0.0-6.4 Basophils/100 leukocytes in 0.1 % 0.2-1.2 L Unspecified specimen (test code = 34943-1) Band form neutrophils [#/volume] 12.42 K/uL 1.78-5.38 H in Blood (test code = 20537-9) Lymphocytes [#/volume] in 1.15 K/uL 1.32-3.57 L Unspecified specimen by Automated count (test code = 00537-4) mono # (test code = mono #) 0.40 K/uL 0.30-0.82 eos # (test code = eos #) 0.00 K/uL 0.04-0.54 L basophil # (test code = basophil 0.01 K/uL 0.01-0.08 #) NRBC% (test code = NRBC%) 0 /100 WBC 0-0.2 NRBC# (test code = NRBC#) 0 K/uL [facility] CountyDifferential panel, method unspecified - [id number] 00:00:00NeutrophilsBandLymphocyteAtypical LymphMonocyteEosinophilBasophilMetamyelocyteMyelocytePromyelocyteBlastsNucleated Red Blood CellDifferential CommentAbs Neutrophil Count (Man)Abs Lymph Count (Man)Abs Monocyte Count (Man)Abs Eosinophil Count (Man)Abs Basophil Count (Man)Platelet EstimatePlatelet Morphol ogyHypochromasiaPoikilocytosisAnisocytosisMicrocytosisMacrocytosisTarget CellsBurr CellsNoxubee General Hospital W Auto Differential panel - Blood [...] volume] (test code = 86.8 fL 83-100 86086-0) mean corpuscular hemoglobin (test 28.5 pg 26.8-33.4 [...] L leukocytes in Blood (test code = 80278-2) Immature granulocytes [#/volume] 0.0 K/uL 0.0-0.03 in Blood (test code = 12958-4) lymphocyte% (test code = 52.2 % 10.0-50.0 H lymphocyte%) mono % (test code = mono %) 8.4 % 3.9-13.4 eos % (test code = eos %) 2.7 % 0.0-6.4 Basophils/100 leukocytes in 0.6 % 0.2-1.2 Unspecified specimen (test code = 94327-1) Band form neutrophils [#/volume] 2.49 K/uL 1.78-5.38 in Blood (test code = 46747-5) Lymphocytes [#/volume] in 3.6 K/uL 1.32-3.57 H Unspecified specimen by Automated count (test code = 18892-8) mono # (test code = mono #) 0.58 K/uL 0.30-0.82 eos # (test code = eos #) 0.19 K/uL 0.04-0.54 basophil # (test code = basophil 0.04 K/uL 0.01-0.08 #) NRBC% (test code = NRBC%) 0 /100 WBC 0-0.2 NRBC# (test code = NRBC#) 0 K/uL [facility]PT/[id number] 10:10:00 Test Item Value Reference Range Interpretation Comments prothrombin time (test code = 9.9 seconds 10.3-12.3 L prothrombin time) INR in Blood by Coagulation assay <0.94 (test code = 29187-3) [facility] CountyCom[facility] metabolic 2000 panel - Serum or [...] Serum or Plasma (test code = 6768-6) [facility] CountyCreatine kinase [Enzymatic activity/volume] in Serum or [id number] 10:10:00 Test Item Value Reference Range Interpretation Comments creatine kinase (test code = creatine 243 U/L 20-200 H kinase) [facility] CountyDifferential panel, method unspecified - [id number] 00:00:00NeutrophilsBandLymphocyteAtypical LymphMonocyteEosinophilBasophilMetamyelocyteMyelocyteAbs Neutrophil Count (Man)Abs Lymph Count (Man)Abs Monocyte Count (Man)Abs Eosinophil Count (Man)Abs Basophil Count (Man)Platelet EstimateHypochromasiaMatagoPascagoula Hospitalpartial thromboplastin [id number] 00:00:00 Test Item Value Reference Range Interpretation Comments INR in Blood by Coagulation 23.6 seconds 22.5-37.0 assay (test code = 38223-6) [facility] CountyCreatine kinase.MB [Mass/volume] in Serum or Plasma 2021-09-25 00:00:00 Test Item Value Reference Range Interpretation Comments Creatine kinase.MB [Mass/volume] in 1.7 NG/mL 0.0-3.6 Serum or Plasma by Immunoassay (test code = 96296-3) [facility] Countyltrop [id number] 00:00:00 Test Item Value Reference Range Interpretation Comments Troponin T.cardiac [Mass/volume] in <0.01 0-0.011 Blood (test code = 99583-0) [facility]
--- NOTE | 2023-02-11 21:38 | RAD REPORT ---
[facility] CLINICAL HISTORY: pain all over COMPARISON: Chest Single View dated 06/15/2016; Chest Single View dated 05/28/2016; CHEST PA AND LAT 2 VIEW dated 03/10/2012 TECHNIQUE: Portable AP view of the chest. FINDINGS: The lungs are clear. No pneumothorax or effusion. The cardiomediastinal contours are unre markable. IMPRESSION: No acute cardiopulmonary process.
[2023-02-11 22:10] LABS: Absolute Lymphocytes (CBC) 2.3 K/uL (0.7-4.9); Hematocrit 43.3 % (39.6-49.0); Lymphocytes % 41.5 % (15.3-44.8); MCV 78.8 fL (80-100); MPV 6.6 fL (7.6-11.3); RBC Red Blood Cell Count 5.49 M/uL (4.33-5.43)
[2023-02-11 22:23] LABS: ALT/SGPT 49 U/L (16-61); AST/SGOT 24 U/L (15-37); Albumin 3.9 g/dL (3.4-5.0); Alkaline Phosphatase 112 U/L (45-117); BUN Blood Urea Nitrogen 10 mg/dL (7-18); Bicarbonate 27 mEq/L (21-32); Bilirubin Total 0.3 mg/dL (0.2-1.0); Glomerular Filtration Rate 81 ml/min (=/>90); Glucose Level 84 mg/dL (74-106); Magnesium 2.1 mg/dL (1.6-2.4); Potassium 3.1 mEq/L (3.5-5.1); Protein, Total 8.2 g/dL (6.4-8.2); Sodium Level 136 mEq/L (136-145); Troponin High Sensitivity 6.1 pg/mL (<58.9)
[2023-02-11 22:36] LABS: Bilirubin Direct < 0.1 mg/dL (0-0.2); Bilirubin Indirect, Calculated ND mg/dL (0.2-0.8)
[2023-02-11] MEDS ORDERED: NA CHLORIDE 0.9% 500 ML ONE (23:56)
[2023-02-11] MEDS ORDERED: KETOROLAC 30 MG/ML INJ ONE (23:56)
[2023-02-11] MEDS ORDERED: POTASSIUM 25 MEQ EFFERV TAB ONE (23:56)
--- NOTE | 2023-02-12 01:05 | ER ---
Nurse's Notes [facility] Name: Piter Iglesias Age: 57 yrs Sex: Male : 1965 Arrival Date: 02/11/2023 Time: 20:38 Bed 2 Private MD: Diagnosis: Pain, unspecified Presentation: 02/11 20:40 Chief complaint: Patient states: chronic generalized pain of 10,onset worse last night. pf1 Patient stated was seen here last night for the same symptoms. Patient stated has some constipation, took a stool softener today at 1930, LBM at 2000 with diarrhea. 20:40 Coronavirus screen: Vaccine status: Patient reports being unvaccinated. Client denies pf1 travel out of the [place] in the last 14 days. At this time, the client does not indicate any symptoms associated with coronavirus-19. Ebola Screen: Patient negative for fever greater than or equal to 101.5 degrees Fahrenheit, and additional compatible Ebola Virus Disease symptoms. Initial Sepsis Screen: Does the patient meet any 2 criteria? No. Patient's initial sepsis screen is negative. Does the patient have a suspected source of infection? No. Patient's initial sepsis screen is negative. Risk Assessment: Do you want to hurt yourself or someone else? Patient reports no desire to harm self or others. 20:40 Method Of Arrival: EMS: [facility] pf1 20:40 Acuity: AISHA 3 pf1 02/12 01:19 Onset of symptoms was February 10, 2023. as6 Historical: - Allergies: 02/11 21:11 Nuts; pf1 - PMHx: 21:11 Anxiety; Hyperlipidemia; Hypertension; Asthma; spinal stenosis; Diabetes mellitus; pf1 - PSHx: 21:11 Cholecystectomy; intestinal Surgery; pf1 - Immunization history:: Adult Immunizations not up to date, Client reports having NOT received the Covid vaccine. Last tetanus immunization: > 10 years ago Flu vaccine is not up to date. - Social history:: Smoking status: Patient reports the use of cigarette tobacco products, denies chronic smoking, but will smoke occasionally, cigars, Patient/guardian denies using alcohol, street drugs. Screenin:12 [facility] ED Fall Risk Assessment (Adult) History of falling in the last 3 months, pf1 including since admission No falls in past 3 months (0 pts) Confusion or Disorientation No (0 pts) Intoxicated or Sedated No (0 pts) Impaired Gait No (0 pts) Mobility Assist Device Used No (0 pt) Altered Elimination No (0 pt) Score/Fall Risk Level 0 - 2 = Low Risk Oriented to surroundings, Maintained a safe environment, Educated pt \T\ family on fall prevention, incl call for assistance when getting out of bed, Assessed \T\ reinforced patient's understanding of fall precautions, Provided non-skid footwear, Hourly rounding (assess needs \T\ fall precautionary measures) done, Used ambulatory aids as needed (educated on \T\ assisted with), Used gait belt as appropriate. Abuse screen: Denies threats or abuse. Nutritional screening: No deficits noted. Tuberculosis screening: No symptoms or risk factors identified. Assessment: 21:56 General: Appears uncomfortable, Behavior is calm, cooperative. Neuro: Level of aa9 Consciousness is awake, alert, obeys commands, Oriented to person, place, time, situation. Cardiovascular: Patient's skin is warm and dry. Respiratory: Airway is patent Respiratory effort is even, unlabored. GI: Abdomen is round. : No signs and/or symptoms were reported regarding the genitourinary system. 23:15 Reassessment: Patient appears in no apparent distress at this time. Patient and/or aa9 family updated on plan of care and expected duration. Pain level reassessed. Patient is alert, oriented x 3, equal unlabored respirations, skin warm/dry/pink. Vital Signs: 20:40 BP 138 / 105; Pulse 84; Resp 15; Temp 98.1; Pulse Ox 100% on R/A; Weight 84.82 kg; pf1 Height 5 ft. 3 in. ; Pain 10/10; 21:37 BP 102 / 67; Pulse 77; Resp 16; Pulse Ox 100% on R/A; aa9 22:30 BP 145 / 105; Pulse 68; Resp 15 S; Pulse Ox 99% on R/A; as6 02/12 00:50 BP 113 / 83; Pulse 75; Resp 18 S; Pulse Ox 99% on R/A; as6 02/11 20:40 Body Mass Index 33.13 (84.82 kg, 160.02 cm) pf1 02/11 20:40 Pain Scale: Adult pf1 ED Course: 02/11 20:40 Patient arrived in ED. rv1 20:45 Barry Upton PA is PHCP. cp 20:45 Shar Gusman MD is Attending Physician. cp 21:06 Laxmi Brown, YUSUF is Primary Nurse. aa9 21:11 Triage completed. pf1 21:20 XRAY Chest (1 view) In Process Unspecified. EDMS 21:50 Missed attempt(s): 22 gauge in right antecubital area. Bleeding controlled, band aid aa9 applied, catheter tip intact. 21:55 Basic Metabolic Panel Sent. aa9 21:55 CBC with Diff Sent. aa9 21:55 LFT's Sent. aa9 21:55 Magnesium Sent. aa9 21:55 Troponin HS Sent. aa9 21:55 CK Sent. aa9 23:40 Inserted saline lock: 22 gauge in left wrist, using aseptic technique. aa9 02/12 00:51 Arm band placed on. as6 00:51 Bed in low position. Call light in reach. as6 01:19 No provider procedures requiring assistance completed. IV discontinued, intact, as6 bleeding controlled, No redness/swelling at site. Pressure dressing applied. Administered Medications: 00:00 Drug: Ketorolac IVP 15 mg Route: IVP; Site: left wrist; sp5 01:18 Follow up: Response: No adverse reaction as6 00:00 Drug: NS 0.9% IV 500 ml Route: IV; Rate: bolus; Site: left wrist; sp5 01:18 Follow up: Response: No adverse reaction; IV Status: Completed infusion; IV Intake: as6 500ml 00:07 Drug: Potassium PO Effervescent Tablet 50 mEq Route: PO; sp5 01:18 Follow up: Response: No adverse reaction as6 Medication: 00:51 VIS not applicable for this client. as6 Intake: 01:18 IV: 500ml; Total: 500ml. as6 Output: 02/11 23:43 Urine: 650ml (Voided); Total: 650ml. aa9 Outcome: 02/12 01:04 Discharge ordered by . cp 01:19 Discharged to home ambulatory. as6 01:19 Condition: stable 01:19 Discharge instructions given to patient, Instructed on discharge instructions, follow up and referral plans. medication usage, Demonstrated understanding of instructions, follow-up care, medications, Prescriptions given X 1. 01:20 Patient left the ED. as6 Signatures: Dispatcher [employer] EDMS Barry Upton PA PA cp Slawson, Ashby RN RN as6 Laxmi Brown RN RN aa9 Sanjana Jefferson RN RN pf1 Luis Felipe, Anusha 1 Aspen Aquino RN RN sp5
--- NOTE | 2023-02-12 01:05 | EDPHYS ---
Physician Documentation [facility] Name: Piter Iglesais Age: 57 yrs Sex: Male : 1965 Arrival Date: 02/11/2023 Time: 20:38 Bed 2 Private MD: ED Physician Shar Gusman HPI: 02/11 21:10 This 57 yrs old Black Male presents to ER via EMS with complaints of Pain all Over. cp 21:10 pain all over. cp 21:11 Onset: The symptoms/episode began/occurred chronically, became worse last night. cp returns to this ED due to continued pain. Historical: - Allergies: 21:11 Nuts; pf1 - PMHx: 21:11 Anxiety; Hyperlipidemia; Hypertension; Asthma; spinal stenosis; Diabetes mellitus; pf1 - PSHx: 21:11 Cholecystectomy; intestinal Surgery; pf1 - Immunization history:: Adult Immunizations not up to date, Client reports having NOT received the Covid vaccine. Last tetanus immunization: > 10 years ago Flu vaccine is not up to date. - Social history:: Smoking status: Patient reports the use of cigarette tobacco products, denies chronic smoking, but will smoke occasionally, cigars, Patient/guardian denies using alcohol, street drugs. ROS: 21:15 Constitutional: Positive for body aches, Negative for fever, poor PO intake. cp 21:15 Eyes: Negative for injury, pain, redness, and discharge. cp 21:15 Cardiovascular: Negative for chest pain, palpitations. 21:15 Respiratory: Negative for cough, shortness of breath, wheezing. 21:15 Abdomen/GI: Negative for vomiting, diarrhea. 21:15 Back: Positive for pain at rest, pain with movement. 21:15 : Negative for urinary symptoms. 21:15 Neuro: Positive for weakness, Negative for altered mental status, dizziness. 21:15 All other systems are negative. Exam: 21:20 Constitutional: The patient appears in no acute distress, alert, awake, cp non-diaphoretic, non-toxic, well developed, well nourished, uncomfortable. 21:20 Head/Face: Normocephalic, atraumatic. cp 21:20 Eyes: Periorbital structures: appear normal, Pupils: equal, round, and reactive to light and accomodation, Conjunctiva: normal, no exudate, no injection, Sclera: no appreciated abnormality, Lids and lashes: appear normal, bilaterally. 21:20 ENT: External ear(s): are unremarkable, Nose: is normal, Mouth: is normal, Posterior pharynx: is normal, airway is patent, no erythema, no exudate. 21:20 Neck: ROM/movement: is normal, is supple, no meningismus, no nuchal rigidity. 21:20 Chest/axilla: Inspection: normal. 21:20 Cardiovascular: Rate: normal, Rhythm: regular, Edema: is not appreciated, JVD: is not appreciated. 21:20 Respiratory: the patient does not display signs of respiratory distress, Respirations: normal, no use of accessory muscles, no retractions, labored breathing, is not present, Breath sounds: are clear throughout, no decreased breath sounds, no stridor, no wheezing. 21:20 Abdomen/GI: Inspection: scar(s), are noted in the abdomen diffusely, Bowel sounds: active, all quadrants, Palpation: soft, in all quadrants, rebound tenderness, is not appreciated, involuntary guarding, is not appreciated. 21:20 Skin: cellulitis, is not appreciated, no rash present. 21:20 Neuro: Orientation: to person, place \T\ time. Mentation: is normal, Motor: moves all fours, strength is normal, Sensation: is normal. 21:25 ECG was reviewed by the Attending Physician. Vital Signs: 20:40 BP 138 / 105; Pulse 84; Resp 15; Temp 98.1; Pulse Ox 100% on R/A; Weight 84.82 kg; pf1 Height 5 ft. 3 in. ; Pain 10/10; 21:37 BP 102 / 67; Pulse 77; Resp 16; Pulse Ox 100% on R/A; aa9 22:30 BP 145 / 105; Pulse 68; Resp 15 S; Pulse Ox 99% on R/A; as6 02/12 00:50 BP 113 / 83; Pulse 75; Resp 18 S; Pulse Ox 99% on R/A; as6 02/11 20:40 Body Mass Index 33.13 (84.82 kg, 160.02 cm) pf1 02/11 20:40 Pain Scale: Adult pf1 MDM: 02/11 20:46 Patient medically screened. cp 02/12 01:03 Data reviewed: vital signs, nurses notes, lab test result(s), EKG, radiologic studies, cp plain films. 01:03 I considered the following discharge prescriptions or medication management in the emergency department Medications were administered in the Emergency Department. See MAR. Care significantly affected by the following chronic conditions: Hypertension. Counseling: I had a detailed discussion with the patient and/or guardian regarding: the historical points, exam findings, and any diagnostic results supporting the discharge/admit diagnosis, lab results, radiology results, to return to the emergency department if symptoms worsen or persist or if there are any questions or concerns that arise at home. Response to treatment: the patient's symptoms have markedly improved after treatment, and as a result, I will discharge patient. 02/11 21:05 Order name: Basic Metabolic Panel; Complete Time: 22:55 cp 02/11 22:55 Interpretation: Normal except: K 3.1; GFR 81. cp 02/11 21:05 Order name: CBC with Diff; Complete Time: 22:55 cp 02/11 21:05 Order name: LFT's; Complete Time: 22:55 cp 02/11 21:05 Order name: Magnesium; Complete Time: 22:55 cp 02/11 21:05 Order name: Troponin HS; Complete Time: 22:55 cp 02/11 21:17 Order name: CK; Complete Time: 22:55 cp 02/11 21:05 Order name: XRAY Chest (1 view); Complete Time: 22:55 cp 02/11 21:05 Order name: EKG; Complete Time: 21:06 cp 02/11 21:05 Order name: Cardiac monitoring; Complete Time: 21:05 cp 02/11 21:05 Order name: EKG - Nurse/Tech; Complete Time: 21:19 cp 02/11 21:05 Order name: IV Saline Lock; Complete Time: 23:43 cp 02/11 21:05 Order name: Labs collected and sent; Complete Time: 21:55 cp 02/11 21:05 Order name: O2 Per Protocol; Complete Time: 21:55 cp 02/11 21:05 Order name: O2 Sat Monitoring; Complete Time: 21:55 cp EC/27 21:25 Rate is 79 beats/min. Rhythm is regular. ND interval is normal. QRS interval is normal. cp QT interval is normal. T waves are Inverted in lead aVR. Interpreted by me. Reviewed by me. Administered Medications: 02/12 00:00 Drug: Ketorolac IVP 15 mg Route: IVP; Site: left wrist; sp5 01:18 Follow up: Response: No adverse reaction as6 00:00 Drug: NS 0.9% IV 500 ml Route: IV; Rate: bolus; Site: left wrist; sp5 01:18 Follow up: Response: No adverse reaction; IV Status: Completed infusion; IV Intake: as6 500ml 00:07 Drug: Potassium PO Effervescent Tablet 50 mEq Route: PO; sp5 01:18 Follow up: Response: No adverse reaction as6 Disposition: 07:34 Co-signature as Attending Physician, Shar Gusman MD I agree with the assessment sp4 and plan of care. I reviewed the patient's care provided by the Advanced Practice Provider and agree with the diagnosis and treatment plan. Disposition Summary: 02/12/23 01:04 Discharge Ordered Location: Home cp Problem: an ongoing problem cp Symptoms: have improved cp Condition: Stable cp Diagnosis - Pain, unspecified cp Followup: cp - With: Private Physician - When: 2 - 3 days - Reason: Recheck today's complaints Discharge Instructions: - Discharge Summary Sheet cp - Potassium Content of Foods cp - Pain Medicine Instructions cp - Pain Without a Known Cause cp - Hypokalemia cp Forms: - Medication Reconciliation Form cp - Thank You Letter cp - Antibiotic Education cp - Prescription Opioid Use cp Prescriptions: - Potassium Chloride 10 mEq Oral capsule, extended release - take 2 tablet by ORAL route once daily; 6 tablet; Refills: 0, Product Selection cp Permitted - Diclofenac Sodium 75 mg Oral Tablet Sustained Release - take 1 tablet by ORAL route 2 times per day; 30 tablet; Refills: 0, Product cp Selection Permitted Signatures: Dispatcher [employer] EDMS Barry Upton PA PA cp Sanjana Jefferson RN RN pf1 Shar Gusman MD MD sp4 Aspen Aquino RN RN sp5 Quincy Nayak RN as6 Corrections: (The following items were deleted from the chart) 02/13 01:01 01:00 This 57 yrs old Black Male presents to ER via EMS with complaints of Pain all cp Over. cp 01:03 01:01 pain all over. cp cp
[2023-02-12 02:43] VITALS: TEMP 98.1
[2023-02-12 02:51] VITALS: O2SAT 99
[2023-02-12 02:52] VITALS: BP 113/83
--- NOTE | 2023-02-12 07:26 | EKG ---
Test Date: 2023-02-11 Test Time: 21:17:03 Systems Testing Laboratory Technician: MEASUREMENT RESULTS: Intervals: Rate: 79 DE: 154 QRSD: 72 QT: 364 QTc: 417 [place]: P: 54 DE: 154 QRS: -11 T: 20 INTERPRETIVE STATEMENTS: Normal sinus rhythm Minimal voltage criteria for LVH, may be normal variant Borderline ECG Compared to ECG 06/15/2016 11:25:59 Left ventricular hypertrophy now present Sinus bradycardia no longer present Electronically Signed On 02-12-23 07:25:07 CDT by Carlton Palma
== END 2023-02-12 01:20 | disposition home or self-care (01) ==
LOC: ER 20:38
DX: R52 Pain, unspecified (principal); I10 Essential (primary) hypertension; F17.290 Nicotine dependence, other tobacco product, uncomplicated; Z91.018 Allergy to other foods
CPT/HCPCS: 96361; 93005; 85025; 80048; 36415; 83735; 82550; 80076; 84484; 71045; 96374; 99284; J7040

== ENCOUNTER 2023-03-05 00:26 | Emergency (ER) | payer OTHER ==
--- OUTSIDE RECORDS SUMMARY | 2023-03-05 00:30 | XMS REPORT | Continuity of Care Document ---
:1965 Author Organization [facility] t Address [address] [place] [address] Care Team Providers Name Role Phone KARIE ANGEL Vázquez Primary Care Physician Unavailable KIERRA BAUTISTA Attending Clinician Unavailable Kierra Bautista MD Attending Clinician Leonid Attending Clinician Unavailable Halle Cruz Attending Clinician Unavailable ARIEL SALDIVAR Attending Clinician Unavailable Parker Mina Attending Clinician Unavailable Denise Rider Attending Clinician Unavailable Shira Fernandez Attending Clinician Unavailable Adarsh Simmons Attending Clinician Unavailable Jacy Jimenez Attending Clinician Unavailable ANITA MONTANEZ Attending Clinician Unavailable Dedrick_F Attending Clinician Unavailable JORGE A FRANCO Attending Clinician Unavailable TROY ROJAS Attending Clinician Unavailable KIERRA BAUTISTA Admitting Clinician Unavailable Leonid Admitting Clinician Unavailable Jacy Jimenez Admitting Clinician Unavailable Dedrick_F Admitting Clinician Unavailable Payers Payer Name Policy Type Policy Number Effective Date Expiration Date [place] [employer] DUAL [id number] 2022 ACCESS OPEN PPO 00:00:00 [place]ID [place] [id number] 2022 00:00:00 [facility] - [id number] 2021 [facility] 00:00:00 (MEDICARE REPLACEMENT/ADVANTA GE - HMO) [place] [facility] - [id number] FORMERLY [facility]) [facility] [id number] (MEDICARE REPLACEMENT/ADVANTA GE - PPO) [place] [id number] (MEDICAID) [facility] [id number] 2021 (MEDICARE 00:00:00 REPLACEMENT/ADVANTA GE - HMO) [employer] (MEDICARE [id number] REPLACEMENT/ADVANTA GE - PPO) Problems Condition Condition [...] rs active active ity of problems problems [facility] Allergies, Adverse Reactions, Alerts Allergy Allergy Status Severity Reaction(s) Onset Inactive Treating Comm ents Source Name Type Date Date Clinician NO KNOWN Drug Active Univers ALLERGIE Class ity of [facility] Social History Social Habit Start Date Stop Date Quantity Comments Source Exposure to 2022-07-23 2022-08-02 Not sure [facility] SARS-CoV-2 (event) 00:00:00 02:07:00 Medica l Branch Sex Ass[birth year] At [birth year] [facility] y of [place] 00:00:00 00:00:00 Medical Branch Smoking Status Start Date Stop Date Source Current Every Day Smoker [facility] Tobacco smoking consumption [facility] unknown Branch Medications Ordered Filled Start Stop Current Ordering Indication Dosage Frequency Signature Comments Components Source Medication Medication Date Date Medication? Clinician (SIG) Name Name iopamidol 2021-09- No [id number] 75mL 75 mL, Univers (ISOVUE 1-15 11-15 Intravenou ity o f 370-500 mL) 10:15: 10:15 s, ONCE, 1 [place] injection 00 :00 dose, On Medica l 75 mL e Branch 08/02/22 at 0415, Routine ondansetron 2021-09 Yes [id number] 4mg Take 1 Univers (ZOFRAN) 4 1-15 tablet by ity of mg tablet 00:00: mouth [place] 00 every 8 Medical (eight) Branch hours [...] Name Influenza vaccine, Influenza vaccine, 2021-08-05 Completed [place] quadrivalent, quadrivalent, 12:11:00 Medical Group adjuvanted adjuvanted Vital Signs Vital Name Observation Time Observation Value Comments Source Heart rate 2022-08-02 11:30:00 93 /min [facility] Oxygen saturation in 2022-08-02 11:30:00 96 /min [facility] Arterial blood by [facility] Pulse oximetry Branch Systolic blood 2022-08-02 11:00:00 134 mm[Hg] [facility] Diastolic blood 2022-08-02 11:00:00 97 mm[Hg] [facility] Respiratory rate 2022-08-02 11:00:00 21 /min [facility] Body temperature 2022-08-02 08:11:00 36.56 [facility] Body height 2022-08-02 08:11:00 160 cm [facility] Body weight 2022-08-02 08:11:00 79.379 kg [facility] BMI 2022-08-02 08:11:00 31.00 kg/m2 [facility] BP Diastolic 2022-05-05 00:00:00 89 mm[Hg] [facility] Height 2022-05-05 00:00:00 68 [in_i] [facility] BMI (Body Mass 2022-05-05 00:00:00 27.5 kg/m2 [facility] Group BP Systolic 2022-05-05 00:00:00 132 mm[Hg] [facility] Body Weight 2022-05-05 00:00:00 2891.2 [oz_av] [facility] BP Diastolic 2022-04-27 00:00:00 96 mm[Hg] [facility] Height 2022-04-27 00:00:00 68 [in_i] [facility] BMI (Body Mass 2022-04-27 00:00:00 26.5 kg/m2 [facility]) Group BP Systolic 2022-04-27 00:00:00 131 mm[Hg] [facility] Body Weight 2022-04-27 00:00:00 2792 [oz_av] [facility] BP Diastolic 2022-03-30 00:00:00 67 mm[Hg] [facility] Height 2022-03-30 00:00:00 68 [in_i] [facility] BMI (Body Mass 2022-03-30 00:00:00 26.5 kg/m2 [facility]) Group BP Systolic 2022-03-30 00:00:00 106 mm[Hg] [facility] Body Weight 2022-03-30 00:00:00 2784 [oz_av] [facility] BP Diastolic 2022-02-28 00:00:00 93 mm[Hg] [facility] Height 2022-02-28 00:00:00 68 [in_i] [facility] BMI (Body Mass 2022-02-28 00:00:00 26.5 kg/m2 [facility]) Group BP Systolic 2022-02-28 00:00:00 132 mm[Hg] [facility] Body Weight 2022-02-28 00:00:00 2784 [oz_av] [facility] BP Diastolic 2022-01-31 00:00:00 92 mm[Hg] [facility] Height 2022-01-31 00:00:00 68 [in_i] [facility] BMI (Body Mass 2022-01-31 00:00:00 26.8 kg/m2 [facility]) Group BP Systolic 2022-01-31 00:00:00 128 mm[Hg] [facility] Body Weight 2022-01-31 00:00:00 2816 [oz_av] [facility] BP Diastolic 2022-01-03 00:00:00 87 mm[Hg] [facility] Height 2022-01-03 00:00:00 68 [in_i] [facility] BMI (Body Mass 2022-01-03 00:00:00 26.8 kg/m2 [facility]) Group BP Systolic 2022-01-03 00:00:00 124 mm[Hg] [facility] Body Weight 2022-01-03 00:00:00 2816 [oz_av] [facility] BP Diastolic 2021-12-06 00:00:00 85 mm[Hg] [facility] Height 2021-12-06 00:00:00 68 [in_i] [facility] BMI (Body Mass 2021-12-06 00:00:00 27.4 kg/m2 [facility]) Group BP Systolic 2021-12-06 00:00:00 131 mm[Hg] [facility] Body Weight 2021-12-06 00:00:00 2887 [oz_av] [facility] BP Diastolic 2021-11-18 00:00:00 85 mm[Hg] [facility] Height 2021-11-18 00:00:00 68 [in_i] [facility] BMI (Body Mass 2021-11-18 00:00:00 27.4 kg/m2 [facility] Group BP Systolic 2021-11-18 00:00:00 133 mm[Hg] [facility] Body Weight 2021-11-18 00:00:00 2880 [oz_av] [facility] BP Diastolic 2021-10-05 00:00:00 89 mm[Hg] [facility] Height 2021-10-05 00:00:00 68 [in_i] [facility] BMI (Body Mass 2021-10-05 00:00:00 27.7 kg/m2 [facility] Group BP Systolic 2021-10-05 00:00:00 124 mm[Hg] [facility] Body Weight 2021-10-05 00:00:00 2912 [oz_av] [facility] BP Diastolic 2021-08-24 00:00:00 78 mm[Hg] [facility] Height 2021-08-24 00:00:00 68 [in_i] [facility] BMI (Body Mass 2021-08-24 00:00:00 28.6 kg/m2 [facility] Group BP Systolic 2021-08-24 00:00:00 122 mm[Hg] [facility] Body Weight 2021-08-24 00:00:00 188 [lb_av] [facility] BP Diastolic 2021-08-05 00:00:00 84 mm[Hg] [facility] Height 2021-08-05 00:00:00 68 [in_i] [facility] BMI (Body Mass 2021-08-05 00:00:00 27.5 kg/m2 [facility] Group BP Systolic 2021-08-05 00:00:00 118 mm[Hg] [facility] Body Weight 2021-08-05 00:00:00 2896 [oz_av] [facility] Procedures Procedure Date / Time Performing Clinician Source Performed URINALYSIS 2022-08-02 10:17:00 Kierra Bautista [facility] CT ABDOMEN PELVIS W 2022-08-02 09:15:15 Kierra Bautista [facility] CONTRAST [facility] LIPASE 2022-08-02 08:16:00 Kierra Bautista [facility] HEPATIC FUNCTION PANEL 2022-08-02 08:16:00 Kierra Bautista [facility] ([id number]) (ALB,T.PRO,BILI Medical Branch T,BU/BC,ALT,AST,ALK PHOS) BASIC METABOLIC PANEL (NA, 2022-08-02 08:16:00 Kierra Bautista [facility] K, CL, CO2, GLUCOSE, BUN, Medica l Branch CREATININE, CA) CBC WITH DIFF 2022-08-02 08:16:00 Kierra Bautista [facility] XR, tibia + fibula, 2 view 2022-04-27 00:00:00 [facility] XR, knee, 3 view 2022-04-27 00:00:00 [facility] XR, lumbosacral spine, 2 2022-04-27 00:00:00 [facility] view Group XR, thoracic spine, 2 view 2022-04-27 00:00:00 [facility] XR, shoulder, 2 or more 2022-04-27 00:00:00 [facility] CT, abdomen + pelvis, w/o 2022-04-27 00:00:00 [facility] ECG WITH INTERPRETATION 12 2021-08-05 00:00:00 [facility], chest, 2 view 2021-08-05 00:00:00 [facility] Cardiac Catheterization 2018-03-18 00:00:00 [facility] Partial Resection of Colon 1999-09-18 00[facility]00:00 [facility] Chole[facility] Plan of Care Planned Activity Planned Date Details Comments Source Diagnostic Test 2022-05-05 CMP, serum or [facility] Pending 00:00:00 plasma [code = Group CMP, serum or plasma] Diagnostic Test 2022-05-05 urinalysis, [place] Pending 00:00:00 complete [code = Group urinalysis, complete] Diagnostic Test 2022-05-05 microalbumin/creat [facility] Pending 00:00:00 inine, mass ratio, Group urine [code = microalbumin/creat inine, mass ratio, urine] Encounters Start End Encounter Admission Attending Care Care Encounter Source Date/Time Date/Time Type Type Clinicians Facility Department ID 2022-08-02 2022-08-02 Emergency X MICHELE [facility] ERT [id number] Univers 02:08:00 06:26:00 KIERRA larose [facility] 2022-08-02 2022-08-02 Emergency Michele [facility] [id number] Univers 02:08:00 06:26:00 Kierra BAI [id number] [facility] [id number] [facility] [id number] [facility] 084 Branch 2022-06-13 2022-06-13 Outpatient Koudela_A MMG [facility] [id number] [place] 00:00:00 00:00:00 0926 [facility] 2022-05-18 2022-05-18 Emergency ER Cruz, [facility] [id number] [place] 16:09:00 18:58:00 Halle -[id number] [facility] 2022-05-05 2022-05-05 Outpatient EL YARIEL, [facility] [id number] [place] 10:53:00 10:53:00 ARIEL -[id number] [facility] 2022-05-05 2022-05-05 Arielkashif Verala_A MMG [place] - [id number] 22 [place] 00:00:00 00:00:00 Discovery Yariel 18 da PA-C: [address] [facility] [address], [place] [address] , Ph. 2022-04-27 2022-04-27 Outpatient UR YARIEL, [facility] [id number] [place] 11:14:00 11:14:00 ARIEL [id number] [facility] 2022-04-27 2022-04-27 Ari[place] Saldivar_[place] G [place] - [id number] 22 [place] 00:00:00 00:00:00 Discovery Yariel 10 da PA-C: [address] [facility] [address], [place] [address] , Ph. 2022-04-18 2022-04-18 Emergency ER Mina, [facility] [id number] [place] 13:18:00 17:27:00 Parker [id number] [facility] 2022-04-15 2022-04-15 Outpatient Koudela_A G [facility] [id number] -[id number] [place] 00:00:00 00:00:00 0729 Medical Group 2022-03-30 2022-03-30 Ariel Koudela_[place] MMG [place] - [id number] 22 [place] 00:00:00 00:00:00 Discovery Yariel 0713 da PA-C: [address] [facility] [address], [place] [address] , Ph. 2022-02-28 2022-02-28 Ariel Sanchezudela_[place] MMG [place] - [id number] 22 [place] 00:00:00 00:00:00 Discovery Yariel 0613 da PA-C: [address] [facility] [address], [place] [address] , Ph. 2022-02-25 2022-02-25 Emergency ER Iwona, [facility] [id number] [place] 13:30:00 19:22:00 Denise -[id number] [facility] 2022-02-05 2022-02-05 Outpatient Koudela_A [facility] [id number] -[id number] [place] 12:33:00 12:33:00 0521 [facility] 2022-01-31 2022-01-31 Outpatient AURELIO YARIEL, [facility] [id number] [place] 11:31:00 11:31:00 ARIEL -[id number] [facility] 2022-01-31 2022-01-31 Ari[place] Sanchezudela_[place] - [id number] 22 [place] 00:00:00 00:00:00 Discovery Yariel 0516 da PA-C: [address] [address], [place] [address] , Ph. 2022-01-12 2022-01-12 Outpatient AURELIO Fernandez, [facility] [id number] [place] 09:58:00 09:58:00 Shira -[id number] [facility] 2022-01-03 2022-01-03 Ariel Snachezudela_[place] - [id number] 22 [place] 00:00:00 00:00:00 Discovery Yariel 0418 da PA-C: [address] [facility] [address], [place] [address] , Ph. 2021-12-17 2021-12-17 Outpatient Koudela_A MMG MMG [id number] [place] 06:11:00 06:11:00 0401 da [facility] 2021-12-06 2021-12-06 Ari[place] Koudela_[place] - [id number] 22 [place] 00:00:00 00:00:00 Discovery Yariel 0321 da PA-C: [address] [facility] [address], [place] [address] , Ph. 2021-12-02 2021-12-02 Outpatient AURELIO Simmons, [facility] [id number] [place] 10:10:00 10:10:00 Adarsh -[id number] [facility] 2021-11-18 2021-11-18 Outpatient AURELIO SALDIVAR, [facility] [id number] [place] 10:39:00 10:39:00 ARIEL [id number] [facility] 2021-11-18 2021-11-18 Ari[place] Verala_[place] - [id number] 22 [place] 00:00:00 00:00:00 Discovery Yariel 0303 da PA-C: [address] [facility] [address], [place] [address] , Ph. 2021-11-17 2021-11-17 Outpatient AURELIO Simmons, [facility] [id number] [place] 10:55:00 10:55:00 Adarsh -[id number] da [facility] 2021-10-29 2021-10-29 [place] [id number] -2021 [place] 04:41:00 04:41:00 0211 [facility] 2021-10-27 2021-10-27 Outpatient Koudela_A MMG MMG [id number] -[id number] [place] 02:05:00 02:05:00 0209 [facility] 2021-10-19 2021-10-19 Outpatient AURELIO Simmons, [facility] [id number] [place] 09:53:00 09:53:00 [facility] -[id number] [facility] 2021-10-18 2021-10-18 Outpatient Koudela_A MMG MMG [id number] [place] 11:04:00 11:04:00 0131 [facility] 2021-10-05 2021-10-05 Ariel Koudela_[place] - [id number] 22 [place] 00:00:00 00:00:00 Discovery Yariel 0118 rene CHEN: [facility] [address] [address] , Ph. 2021-09-26 2021-10-01 Inpatient ER Jimenez, [facility] [id number] [place] 12:55:00 14:03:00 Jacy -[id number] [facility] 2021-09-25 2021-09-25 Emergency ER MONTANEZ, [facility] [id number] [place] 11:01:00 14:06:00 ANITA -[id number] [facility] 2021-08-25 2021-08-25 Outpatient Koudela_A [place] G [id number] -[id number] [place] 05:53:00 05:53:00 1208 [facility] 2021-08-24 2021-08-24 Miah Koudela_[place] - [id number] 21 [place] 00:00:00 00:00:00 Bhargav Johnson MD: Medical Medica [address], [place] [address] , Ph. [phone] 2021-08-09 2021-08-09 Outpatient Koudela_A MMG [facility] [id number] -[id number] [place] 04:17:00 04:17:00 1122 [facility] 2021-08-06 2021-08-06 Outpatient Koudela_A MMG MMG [id number] -[id number] [place] 10:50:00 10:50:00 1119 [facility] 2021-08-05 2021-08-05 Ari[place] Koudela_[place] - [id number] 21 [place] 00:00:00 00:00:00 Discovery Yariel 1118 da PA-C: [address] [facility] [place] [address], [place] [address] , Ph. 2021-08-04 2021-08-04 Outpatient Koudela_A MMG [facility] [id number] [place] 05:51:00 05:51:00 1117 [facility] 2021-08-03 2021-08-03 Outpatient Zuniga_F MMG [facility] [id number] [place] 01:34:00 01:34:00 1116 [facility] 2021-05-29 2021-05-29 Emergency ER BA, JORGE A [facility] [id number] [place] 07:18:00 12:30:00 -[id number] [facility] 2021 2021 Emergency ER ROJAS, [facility] [id number] [place] 21:16:00 22:23:00 WASIM -[id number] [facility] 2021-04-05 2021-04-05 Outpatient Zuniga_F MMG [facility] [id number]- [id number] [place] 02:45:00 02:45:00 0719 Medical Group Results Test Description Test Time Test Comments Results Result Comments Source Urinalysis complete W Reflex Culture panel - Urine 2022-04-18 0 09:29:00 Test Item Value Reference Range Interpretation Comme nts Color of Urine by Auto (test code = 61036-6) yellow Appearance of Urine (test code = 5767-9) clear clear Glucose [Presence] in Urine by Automated test strip negative ne gative (test code = 06803-7) Bilirubin.total [Mass/volume] in Urine (test code = negative ne gative 1978-02) Ketones [Mass/volume] in Urine by Automated test strip trace negative (test code = 87465-8) Specific gravity of Urine by Automated test strip (test 1.027 1.003-1.030 code = 21094-9) blood urine (test code = blood urine) negative negative pH of Urine (test code = 2756-5) 6.000 5-9 protein urine (UA) (test code = protein urine (UA)) =1+ (50 ne gative H Urobilinogen [Presence] in Urine (test code = 55561-4) =2.0 0.2-1.0 H Nitrite [Presence] in Urine by Test strip (test code = negative negative 5802-4) Leukocyte esterase [Presence] in Urine by Automated negative ne gative test strip (test code = 70016-0) Erythrocytes [#/volume] in Urine by Automated count =1-5 0- 5 (test code = 798-9) Leukocytes [#/area] in Urine sediment by Automated =1-5 0-5 count (test code = 52986-3) Epithelial cells [Presence] in Urine sediment by Light <1 0-5 microscopy (test code = 50802-2) Bacteria identified in Urine by Culture (test code = none detected none detect 630-4) Casts [#/area] in Urine sediment by Automated count none detected n one detect (test code = 70870-3) urine culture added? (test code = urine culture added?) [facility] W Auto Differential panel - [id number] 09:29:00 Test Item Value Reference Range Interpretation Comments white blood count (test code = 6.2 K/uL 4.0-12.3 white blood count) red blood count (test code = red 4.90 M/uL 3.80-5.80 blood count) hemoglobin (test code = 14.1 g/dL 11.7-17.2 hemoglobin) hematocrit (test code = 43.3 % 35.0-51.0 hematocrit) MCV [Entitic volume] (test code = 88.4 fL 83.0-100.0 41268-4) mean corpuscular hemoglobin (test 28.8 pg 26.8-33.4 [...] 44.7-82.4 leukocytes in Blood (test code = 21906-9) Immature granulocytes [#/volume] 0.01 K/uL 0.00-0.03 in Blood (test code = 95686-1) lymphocyte% (test code = 32.5 % 10.0-50.0 lymphocyte%) mono % (test code = mono %) 11.7 % 3.9-13.4 eos % (test code = eos %) 2.1 % 0.0-6.4 basophil % (test code = basophil 0.6 % 0.2-1.2 %) Band form neutrophils [#/volume] 3.30 K/uL 1.78-5.38 in Blood (test code = 24828-9) Lymphocytes [#/volume] in Specimen 2.03 K/uL 1.32-3.57 by Automated count (test code = 51951-2) mono # (test code = mono #) 0.73 K/uL 0.30-0.82 eos # (test code = eos #) 0.13 K/uL 0.04-0.54 basophil # (test code = basophil 0.04 K/uL 0.01-0.08 #) NRBC% (test code = NRBC%) 0 /100 WBC 0-0.2 NRBC# (test code = NRBC#) 0 K/uL [facility] method unspecified - [id number] 09:29:00NeutrophilsBandLymphocyteAtypical LymphMonocyteEosinophilBasophilAbs Neutrophil Count (Man)Abs LymphCount (Man)Abs Monocyte Count (Man)Abs Eosinophil Count (Man)Abs Basophil Count (Man)Platelet EstimatePlatelet MorphologyHypochromasiaPoikilocytosisAnisocytosisStomatocyteMatagorda Medical GroupComprehensive metabolic 2000 panel - Serum or [id number] 09:29:00 Test Item Value Reference Range Interpretation [...] Serum or Plasma (test code = 6768-6) [facility] [Enzym[facility] activity/volume] in Serum or Plasma 2022-04-27 00:00:00 Test Item Value Reference Range Interpretation Comments Amylase [Enzymatic activity/volume] in 62 U/L 28-100 Serum or Plasma (test code = 1798-8) [facility] [[facility] activity/volume] in Serum or Plasma 2022-04-27 00:00:00 Test Item Value Reference Range Interpretation Comments lipase (test code = lipase) 41 U/L 13-60 [facility] complete panel - [id number] 12:30:00 Test Item Value Reference Range Interpretation Comments Color of Urine by Auto (test light yellow code = 34879-3) Appearance of Urine (test code clear clear = 5767-9) Glucose [Presence] in Urine by negative negative Automated test strip (test code = 20048-5) Bilirubin.total [Mass/volume] negative negative in Urine (test code = 1978-6) Ketones [Mass/volume] in Urine negative negative by Automated test strip (test code = 82640-2) Specific gravity of Urine by 1.029 1.003-1.030 Automated test strip (test code = 00320-7) blood urine (test code = blood negative negative urine) pH of Urine (test code = 7.000 5-9 2756-5) protein urine (UA) (test code = negative negative protein urine (UA)) Urobilinogen [Presence] in normal 0.2-1.0 Urine (test code = 37773-7) Nitrite [Presence] in Urine by negative negative Test strip (test code = 5802-4) Leukocyte esterase [Presence] negative negative in Urine by Automated test strip (test code = 28214-0) Erythrocytes [#/volume] in <1 0-5 Urine by Automated count (test code = 798-9) Leukocytes [#/area] in Urine <1 0-5 sediment by Automated count (test code = 38003-6) Epithelial cells [Presence] in <1 0-5 Urine sediment by Light microscopy (test code = 42330-4) Bacteria identified in Urine by none detected none detect Culture (test code = 630-4) Casts [#/area] in Urine none detected none detect sediment by Automated count (test code = 81779-3) urine culture added? (test code no = urine culture added?) [facility] - [id number] 12:30:00 Test Item Value Reference Range Interpretation Comments Color of Urine by Auto (test light yellow code = 69075-6) Appearance of Urine (test code clear clear = 5767-9) Glucose [Presence] in Urine by negative negative Automated test strip (test code = 43482-9) Bilirubin.total [Mass/volume] negative negative in Urine (test code = 1978-6) Ketones [Mass/volume] in Urine negative negative by Automated test strip (test code = 23698-3) Specific gravity of Urine by 1.029 1.003-1.030 Automated test strip (test code = 80173-1) blood urine (test code = blood negative negative urine) pH of Urine (test code = 7.000 5-9 2756-5) protein urine (UA) (test code = negative negative protein urine (UA)) Urobilinogen [Presence] in normal 0.2-1.0 Urine (test code = 70735-2) Nitrite [Presence] in Urine by negative negative Test strip (test code = 5802-4) Leukocyte esterase [Presence] negative negative in Urine by Automated test strip (test code = 06270-7) Erythrocytes [#/volume] in <1 0-5 Urine by Automated count (test code = 798-9) Leukocytes [#/area] in Urine <1 0-5 sediment by Automated count (test code = 48856-4) Epithelial cells [Presence] in <1 0-5 Urine sediment by Light microscopy (test code = 31341-2) Bacteria identified in Urine by none detected none detect Culture (test code = 630-4) Casts [#/area] in Urine none detected none detect sediment by Automated count (test code = 30859-6) urine culture added? (test code no = urine culture added?) [facility] - [facility] 2022-04-18 11:39:00 Test Item Value Reference Range Interpretation Comments Rh [Type] in Blood (test code = 4+ 24198-4) ABO and Rh group panel - Blood A positive (test code = 69542-4) [facility] - Blood 2022-04-18 11:39:00 Test Item Value Reference Range Interpretation Comments Rh [Type] in Blood (test code = 4+ 61882-7) ABO and Rh group panel - Blood A positive (test code = 36117-2) [facility] [id number] 11:34:00 Test Item Value Reference Range Interpretation Comments white blood count (test code = 6.5 K/uL 4.0-12.3 white blood count) red blood count (test code = red 4.52 M/uL 3.80-5.80 blood count) hemoglobin (test code = hemoglobin) 13.5 g/dL 11.7-17.2 hematocrit (test code = hematocrit) 39.6 % 35.0-51.0 MCV [Entitic volume] (test code = 87.6 fL 83.0-100.0 21736-7) mean corpuscular hemoglobin (test 29.9 pg 26.8-33.4 [...] 8.0 fL 9.4-12.6 L mean platelet volume) [facility][id number] 11:34:00 Test Item Value Reference Range Interpretation Comments prothrombin time (test code = 9.9 seconds 10.3-12.3 L prothrombin time) INR in Blood by Coagulation assay <0.94 (test code = 44249-2) [facility] [id number] 11:34:00 Test Item Value Reference Range Interpretation Comments INR in Blood by Coagulation 24.5 seconds 22.5-37.0 assay (test code = 48516-4) [facility]Com[facility] 2000 panel - Serum or Plasma [...] Serum or Plasma (test code = 6768-6) [facility] CenterCreatine kinase [Enzymatic activity/volume] in Serum or [id number] 11:34:00 Test Item Value Reference Range Interpretation Comments creatine kinase (test code = creatine 192 U/L 20-200 kinase) [facility] panel - Blood by Automated [id number] 11:34:00 Test Item Value Reference Range Interpretation Comments white blood count (test code = 6.5 K/uL 4.0-12.3 white blood count) red blood count (test code = red 4.52 M/uL 3.80-5.80 blood count) hemoglobin (test code = hemoglobin) 13.5 g/dL 11.7-17.2 hematocrit (test code = hematocrit) 39.6 % 35.0-51.0 MCV [Entitic volume] (test code = 87.6 fL 83.0-100.0 07936-7) mean corpuscular hemoglobin (test 29.9 pg 26.8-33.4 [...] 8.0 fL 9.4-12.6 L mean platelet volume) [facility]PT/[id number] 11:34:00 Test Item Value Reference Range Interpretation Comments prothrombin time (test code = 9.9 seconds 10.3-12.3 L prothrombin time) INR in Blood by Coagulation assay <0.94 (test code = 12812-0) [facility]partial [facility]in [id number] 11:34:00 Test Item Value Reference Range Interpretation Comments INR in Blood by Coagulation 24.5 seconds 22.5-37.0 assay (test code = 04625-0) [facility]Com[facility] 2000 panel - Serum or Plasma [...] Serum or Plasma (test code = 6768-6) [facility] CenterCreatine kinase [Enzymatic activity/volume] in Serum or [id number] 11:34:00 Test Item Value Reference Range Interpretation Comments creatine kinase (test code = creatine 192 U/L 20-200 kinase) [facility] W Auto Differential panel - [id number] 09:45:00 Test Item Value Reference Range Interpretation Comments white blood count (test code = 5.6 K/uL 4.0-12.3 white blood count) red blood count (test code = red 4.27 M/uL 3.80-5.80 blood count) hemoglobin (test code = 12.6 g/dL 11.7-17.2 hemoglobin) hematocrit (test code = 38.2 % 35.0-51.0 hematocrit) MCV [Entitic volume] (test code = 89.5 fL 83.0-100.0 72917-3) mean corpuscular hemoglobin (test 29.5 pg 26.8-33.4 [...] 44.7-82.4 leukocytes in Blood (test code = 04827-9) Immature granulocytes [#/volume] 0.01 K/uL 0.00-0.03 in Blood (test code = 46432-4) lymphocyte% (test code = 36.8 % 10.0-50.0 lymphocyte%) mono % (test code = mono %) 11.7 % 3.9-13.4 eos % (test code = eos %) 3.6 % 0.0-6.4 Basophils/100 leukocytes in 0.9 % 0.2-1.2 Specimen (test code = 19076-6) Band form neutrophils [#/volume] 2.64 K/uL 1.78-5.38 in Blood (test code = 09550-7) Lymphocytes [#/volume] in Specimen 2.07 K/uL 1.32-3.57 by Automated count (test code = 95613-9) mono # (test code = mono #) 0.66 K/uL 0.30-0.82 eos # (test code = eos #) 0.20 K/uL 0.04-0.54 basophil # (test code = basophil 0.05 K/uL 0.01-0.08 #) NRBC% (test code = NRBC%) 0 /100 WBC 0-0.2 NRBC# (test code = NRBC#) 0 K/uL [facility]Com[facility] 2000 panel - Serum or Plasma [...] Serum or Plasma (test code = 6768-6) [facility] CenterLipid 1996 panel - Serum or [id number] 09:45:00 Test Item Value Reference Range Interpretation Comments cholesterol level (test code = 113 mg/dL 150-200 L cholesterol level) triglycerides level (test code = 148 mg/dL <150 triglycerides level) HDL cholesterol (test code = HDL 36 mg/dL >55 L cholesterol) LDL cholesterol direct (test code = 61 mg/dL <100 LDL cholesterol direct) cholesterol risk ratio (test code = 3.138 cholesterol risk ratio) [facility] CenterUrinalysis complete W Reflex Culture panel - Urine 2022-01-31 09:45:00 Test Item Value Reference Range Interpretation Comments Color of Urine by Auto (test yellow code = 84279-7) Appearance of Urine (test code clear clear = 5767-9) Glucose [Presence] in Urine by negative negative Automated test strip (test code = 81790-4) Bilirubin.total [Mass/volume] negative negative in Urine (test code = 1978-6) Ketones [Mass/volume] in Urine negative negative by Automated test strip (test code = 83107-6) Specific gravity of Urine by 1.031 1.003-1.030 H Automated test strip (test code = 07209-2) blood urine (test code = blood negative negative urine) pH of Urine (test code = 6.000 5-9 2756-5) protein urine (UA) (test code = =1+ (30 negative H protein urine (UA)) Urobilinogen [Presence] in =2.0 0.2-1.0 H Urine (test code = 79134-5) Nitrite [Presence] in Urine by negative negative Test strip (test code = 5802-4) Leukocyte esterase [Presence] negative negative in Urine by Automated test strip (test code = 47187-5) Erythrocytes [#/volume] in =1-5 0-5 Urine by Automated count (test code = 798-9) Leukocytes [#/area] in Urine <1 0-5 sediment by Automated count (test code = 17935-9) Epithelial cells [Presence] in <1 0-5 Urine sediment by Light microscopy (test code = 66392-0) Bacteria identified in Urine by none detected none detect Culture (test code = 630-4) Casts [#/area] in Urine =2-5 none detect sediment by Automated count (test code = 93068-3) urine culture added? (test code no = urine culture added?) [facility] CenterDifferential panel, method unspecified - [id number] 00:00:00NeutrophilsBandLymphocyteAtypical LymphMonocyteEosinophilBasophilMetamyelocyteAbs Neutrophil Count (Man)Abs Lymph Count (Man)Abs Monocyte Count (Man)Abs Eosinophil Count (Man)Abs Basophil Count (Man)Platelet EstimatePlatelet MorphologyMacrocytosisChoctaw Health Center Hemoglobin A1c [Mass/volume] in [id number] 00:00:00 Test Item Value Reference Range Interpretation Comments Hemoglobin A1c [Mass/volume] in Blood 5.7 % 4.0-6.0 (test code = 24550-1) [facility] CenterCom[facility] 2000 panel - Serum or Plasma [...] Serum or Plasma (test code = 6768-6) [facility] CenterCobalamin (Vitamin B12) [Mass/volume] in Serum or Plasma 2021-11-18 00:00:00 Test Item Value Reference Range Interpretation Comments vitamin B12, serum (test code = vitamin 330 B12, serum) [facility] W Auto Differential panel - [id number] 03:50:00 Test Item Value Reference Range Interpretation Comments white blood count (test code = 10.6 K/uL 4.0-12.3 white blood count) red blood count (test code = red 4.27 M/uL 3.80-5.80 blood count) hemoglobin (test code = 12.1 g/dL 11.7-17.2 hemoglobin) hematocrit (test code = 36.6 % 35.0-51.0 hematocrit) MCV [Entitic volume] (test code = 85.7 fL 83.0-100.0 26395-4) mean corpuscular hemoglobin (test 28.3 pg 26.8-33.4 [...] 44.7-82.4 leukocytes in Blood (test code = 34429-1) Immature granulocytes [#/volume] 0.10 K/uL 0.00-0.03 H in Blood (test code = 20205-2) lymphocyte% (test code = 19.0 % 10.0-50.0 lymphocyte%) mono % (test code = mono %) 7.1 % 3.9-13.4 eos % (test code = eos %) 0 % 0.0-6.4 Basophils/100 leukocytes in 0.1 % 0.2-1.2 L Unspecified specimen (test code = 21705-9) Band form neutrophils [#/volume] 7.75 K/uL 1.78-5.38 H in Blood (test code = 00243-5) Lymphocytes [#/volume] in 2.02 K/uL 1.32-3.57 Unspecified specimen by Automated count (test code = 10505-5) mono # (test code = mono #) 0.75 K/uL 0.30-0.82 eos # (test code = eos #) 0.00 K/uL 0.04-0.54 L basophil # (test code = basophil 0.01 K/uL 0.01-0.08 #) NRBC% (test code = NRBC%) 0 /100 WBC 0-0.2 NRBC# (test code = NRBC#) 0 K/uL [facility] metabolic 2000 panel - Serum or [id number] 03:50:00 Test Item Value Reference Range Interpretation [...] = 8.0 mg/dL 8.6-10.0 L calcium level) [facility] CenterDifferential panel, method unspecified - [id number] 00:00:00NeutrophilsBandLymphocyteAtypical LymphMonocyteEosinophilBasophilMetamyelocyteMyelocytePromyelocyteBlastsNucleated Red Blood CellPlasma CellDifferential CommentAbs Neutrophil Count (Man)Abs Lymph Count(Man)Abs Monocyte Count (Man)Abs Eosinophil Count (Man)Abs Basophil Count (Man)Platelet EstimatePlatelet MorphologyHypochromasiaPoikilocytosisAnisocytosisMicrocytosisMacrocytosisSchisto cytesTarget CellsStomatocyteToxic GranulationBurr CellsHypersegmented PolysSmudge CellsMethodist [facility] Hospital W Auto Differential panel - Blood [...] volume] (test code = 89.2 fL 83.0-100.0 79217-8) mean corpuscular hemoglobin (test 28.8 pg 26.8-33.4 [...] H leukocytes in Blood (test code = 87701-4) Immature granulocytes [#/volume] 0.11 K/uL 0.00-0.03 H in Blood (test code = 02772-0) lymphocyte% (test code = 10.0 % 10.0-50.0 lymphocyte%) mono % (test code = mono %) 3.0 % 3.9-13.4 L eos % (test code = eos %) 0 % 0.0-6.4 Basophils/100 leukocytes in 0.0 % 0.2-1.2 L Unspecified specimen (test code = 70708-4) Band form neutrophils [#/volume] 8.69 K/uL 1.78-5.38 H in Blood (test code = 02606-7) Lymphocytes [#/volume] in 1.01 K/uL 1.32-3.57 L Unspecified specimen by Automated count (test code = 08903-2) mono # (test code = mono #) 0.30 K/uL 0.30-0.82 eos # (test code = eos #) 0.00 K/uL 0.04-0.54 L basophil # (test code = basophil 0.00 K/uL 0.01-0.08 L #) NRBC% (test code = NRBC%) 0 /100 WBC 0-0.2 NRBC# (test code = NRBC#) 0 K/uL [facility] metabolic 2000 panel - Serum or [id number] 03:28:00 Test Item Value Reference Range Interpretation [...] = 8.3 mg/dL 8.6-10.0 L calcium level) [facility] CenterDifferent[facility] panel, method unspecified - [id number] 00:00:00NeutrophilsBandLymphocyteAtypical LymphMonocyteEosinophilBasophilMetamyelocyteMyelocytePromyelocyteBlastsNucleated Red Blood CellPlasma CellDifferential CommentAbs Neutrophil Count (Man)Abs Lymph Count(Man)Abs Monocyte Count (Man)Abs Eosinophil Count (Man)Abs Basophil Count (Man)Platelet EstimatePlatelet MorphologyHypochromasiaPoikilocytosisAnisocytosisMicrocytosisMacrocytosisSchisto cytesTarget CellsStomatocyteToxic GranulationBurr CellsHypersegmented PolysSmudge CellsChoctaw Health CenterClostridioides difficile toxin A+B [Presence] in [id number] 08:35:00 Test Item Value Reference Range Interpretation Comments results (test code = results) Clostridioides difficile 027 presumptive [id number] strain DNA negative [Presence] in Stool by PRANAV with probe detection (test code = 58455-1) [facility] CenterLeukocytes [Presence] in Stool by Light microscopy 2021-09-29 08:35:00ResultsChoctaw Health CenterCBC W Auto Differential panel - [id number] 02:50:00 Test Item Value Reference Range Interpretation Comments white blood count (test code = 12.0 K/uL 4.0-12.3 white blood count) red blood count (test code = red 4.17 M/uL 3.80-5.80 blood count) hemoglobin (test code = 11.9 g/dL 11.7-17.2 hemoglobin) hematocrit (test code = 36.2 % 35.0-51.0 hematocrit) MCV [Entitic volume] (test code = 86.8 fL 83.0-100.0 70401-1) mean corpuscular hemoglobin (test 28.5 pg 26.8-33.4 [...] H leukocytes in Blood (test code = 46493-1) Immature granulocytes [#/volume] 0.09 K/uL 0.00-0.03 H in Blood (test code = 62390-8) lymphocyte% (test code = 7.4 % 10.0-50.0 L lymphocyte%) mono % (test code = mono %) 2.8 % 3.9-13.4 L eos % (test code = eos %) 0 % 0.0-6.4 Basophils/100 leukocytes in 0.0 % 0.2-1.2 L Unspecified specimen (test code = 92589-0) Band form neutrophils [#/volume] 10.72 K/uL 1.78-5.38 H in Blood (test code = 69070-7) Lymphocytes [#/volume] in 0.89 K/uL 1.32-3.57 L Unspecified specimen by Automated count (test code = 50996-1) mono # (test code = mono #) 0.34 K/uL 0.30-0.82 eos # (test code = eos #) 0.00 K/uL 0.04-0.54 L basophil # (test code = basophil 0.00 K/uL 0.01-0.08 L #) NRBC% (test code = NRBC%) 0 /100 WBC 0-0.2 NRBC# (test code = NRBC#) 0 K/uL [facility] metabolic 2000 panel - Serum or [id number] 02:50:00 Test Item Value Reference Range Interpretation [...] code = 8.6 mg/dL 8.6-10.0 calcium level) [facility] CenterDifferential panel, method unspecified - [id number] 00:00:00NeutrophilsBandLymphocyteAtypical LymphMonocyteEosinophilBasophilMetamyelocyteMyelocytePromyelocyteBlastsNucleated Red Blood CellDifferential CommentAbs Neutrophil Count (Man)Abs Lymph Count (Man)Abs Monocyte Count (Man)Abs Eosinophil Count (Man)Abs Basophil Count (Man)Platelet EstimatePlatelet Morphol ogyHypochromasiaPoikilocytosisAnisocytosisMicrocytosisMacrocytosisTarget CellsBurr CellsHypersegmented PolysChoctaw Health CenterBasic metabolic 2000 panel - Serum or [id number] 03:05:00 Test Item Value Reference Range Interpretation [...] code = 9.0 mg/dL 8.6-10.0 calcium level) [facility] W Auto Differential panel - [id number] 03:05:00 Test Item Value Reference Range Interpretation Comments white blood count (test code = 14.1 K/uL 4.0-12.3 white blood count) red blood count (test code = red 4.35 M/uL 3.80-5.80 blood count) hemoglobin (test code = 12.5 g/dL 11.7-17.2 hemoglobin) hematocrit (test code = 37.8 % 35.0-51.0 hematocrit) MCV [Entitic volume] (test code = 86.9 fL 83.0-100.0 24882-9) mean corpuscular hemoglobin (test 28.7 pg 26.8-33.4 [...] H leukocytes in Blood (test code = 33273-5) Immature granulocytes [#/volume] 0.09 K/uL 0.00-0.03 H in Blood (test code = 97828-7) lymphocyte% (test code = 8.2 % 10.0-50.0 L lymphocyte%) mono % (test code = mono %) 2.8 % 3.9-13.4 L eos % (test code = eos %) 0 % 0.0-6.4 Basophils/100 leukocytes in 0.1 % 0.2-1.2 L Unspecified specimen (test code = 66427-7) Band form neutrophils [#/volume] 12.42 K/uL 1.78-5.38 H in Blood (test code = 57891-6) Lymphocytes [#/volume] in 1.15 K/uL 1.32-3.57 L Unspecified specimen by Automated count (test code = 51097-6) mono # (test code = mono #) 0.40 K/uL 0.30-0.82 eos # (test code = eos #) 0.00 K/uL 0.04-0.54 L basophil # (test code = basophil 0.01 K/uL 0.01-0.08 #) NRBC% (test code = NRBC%) 0 /100 WBC 0-0.2 NRBC# (test code = NRBC#) 0 K/uL [facility] CenterDifferential panel, method unspecified - [id number] 00:00:00NeutrophilsBandLymphocyteAtypical LymphMonocyteEosinophilBasophilMetamyelocyteMyelocytePromyelocyteBlastsNucleated Red Blood CellDifferential CommentAbs Neutrophil Count (Man)Abs Lymph Count (Man)Abs Monocyte Count (Man)Abs Eosinophil Count (Man)Abs Basophil Count (Man)Platelet EstimatePlatelet Morphol ogyHypochromasiaPoikilocytosisAnisocytosisMicrocytosisMacrocytosisTarget CellsBurr CellsMethodist [facility] Hospital W Auto Differential panel - Blood [...] volume] (test code = 86.8 fL 83-100 72941-8) mean corpuscular hemoglobin (test 28.5 pg 26.8-33.4 [...] L leukocytes in Blood (test code = 25951-6) Immature granulocytes [#/volume] 0.0 K/uL 0.0-0.03 in Blood (test code = 09625-9) lymphocyte% (test code = 52.2 % 10.0-50.0 H lymphocyte%) mono % (test code = mono %) 8.4 % 3.9-13.4 eos % (test code = eos %) 2.7 % 0.0-6.4 Basophils/100 leukocytes in 0.6 % 0.2-1.2 Unspecified specimen (test code = 21427-9) Band form neutrophils [#/volume] 2.49 K/uL 1.78-5.38 in Blood (test code = 64824-3) Lymphocytes [#/volume] in 3.6 K/uL 1.32-3.57 H Unspecified specimen by Automated count (test code = 85029-3) mono # (test code = mono #) 0.58 K/uL 0.30-0.82 eos # (test code = eos #) 0.19 K/uL 0.04-0.54 basophil # (test code = basophil 0.04 K/uL 0.01-0.08 #) NRBC% (test code = NRBC%) 0 /100 WBC 0-0.2 NRBC# (test code = NRBC#) 0 K/uL [facility]PT/[id number] 10:10:00 Test Item Value Reference Range Interpretation Comments prothrombin time (test code = 9.9 seconds 10.3-12.3 L prothrombin time) INR in Blood by Coagulation assay <0.94 (test code = 98077-7) [facility] CenterComprehensive [facility] 2000 panel - Serum or Plasma [...] Serum or Plasma (test code = 6768-6) [facility] CenterCreatine kinase [Enzymatic activity/volume] in Serum or [id number] 10:10:00 Test Item Value Reference Range Interpretation Comments creatine kinase (test code = creatine 243 U/L 20-200 H kinase) [facility] CenterDifferential panel, method unspecified - [id number] 00:00:00NeutrophilsBandLymphocyteAtypical LymphMonocyteEosinophilBasophilMetamyelocyteMyelocyteAbs Neutrophil Count (Man)Abs Lymph Count (Man)Abs Monocyte Count (Man)Abs Eosinophil Count (Man)Abs Basophil Count (Man)Platelet EstimateHypochromasiaMaGulf Coast Veterans Health Care Systempartial thromboplastin [id number] 00:00:00 Test Item Value Reference Range Interpretation Comments INR in Blood by Coagulation 23.6 seconds 22.5-37.0 assay (test code = 63195-7) [facility] CenterCreatine kinase.MB [Mass/volume] in Serum or Plasma 2021-09-25 00:00:00 Test Item Value Reference Range Interpretation Comments Creatine kinase.MB [Mass/volume] in 1.7 NG/mL 0.0-3.6 Serum or Plasma by Immunoassay (test code = 81909-5) [facility] Centerltrop [id number] 00:00:00 Test Item Value Reference Range Interpretation Comments Troponin T.cardiac [Mass/volume] in <0.01 0-0.011 Blood (test code = 44967-1) [facility]
[2023-03-05 01:08] LABS: Absolute Lymphocytes (CBC) 2.6 K/uL (0.7-4.9); Hematocrit 35.4 % (39.6-49.0); Lymphocytes % 29.5 % (15.3-44.8); MCV 78.8 fL (80-100); MPV 6.3 fL (7.6-11.3); RBC Red Blood Cell Count 4.49 M/uL (4.33-5.43)
[2023-03-05 01:28] LABS: Albumin 3.7 g/dL (3.4-5.0); Bilirubin Total 0.3 mg/dL (0.2-1.0); Potassium 3.4 mEq/L (3.5-5.1); Protein, Total 7.3 g/dL (6.4-8.2)
[2023-03-05] MEDS ORDERED: METOCLOPRAMIDE 10 MG/2mL INJ ONE (02:32)
[2023-03-05] MEDS ORDERED: MORPHINE 4 MG/ML SYR ONE ×2 (02:32→04:55)
[2023-03-05] MEDS ORDERED: NS KCL 20MEQ 1,000 ML IV ONE (02:33)
[2023-03-05] MEDS ORDERED: ONDANSETRON 4 MG/2 ML VIAL ONE (02:33)
[2023-03-05] MEDS ORDERED: KETOROLAC 30 MG/ML INJ ONE (02:33)
[2023-03-05] MEDS ORDERED: NA CHLORIDE 0.9% 50 ML ONE (02:33)
--- NOTE | 2023-03-05 06:20 | EDPHYS ---
Physician Documentation [facility] Name: Piter Iglesias Age: 57 yrs Sex: Male : 1965 Arrival Date: 03/05/2023 Time: 00:26 Bed 5 Private MD: ED Physician Shar Gusman HPI: 03/05 01:58 This 57 yrs old Black Male presents to ER via EMS with complaints of Nausea , vomiting, sp4 abdominal pain . 06:15 57-year-old black male with history of cholecystectomy, anxiety, hyperlipidemia, sp4 hypertension tension spinal stenosis diabetes, who presents with nausea, vomiting, and lower abdominal pain. Symptoms started today. 06:15 Patient reported that symptoms actually started 45 minutes prior to arrival acutely. sp4 Patient arrived via EMS. Historical: - Allergies: 00:36 Nuts; as6 - PMHx: 00:36 Anxiety; Hyperlipidemia; Hypertension; spinal stenosis; diabetes mellitus; Asthma; as6 - PSHx: 00:36 Cholecystectomy; intestinal Surgery; as6 - Immunization history:: Client reports having NOT received the Covid vaccine. - Social history:: Smoking status: Patient denies any tobacco usage or history of. - Family history:: not pertinent. ROS: 06:15 Constitutional: Negative for fever, chills, and weight loss, Eyes: Negative for injury, sp4 pain, redness, and discharge, ENT: Negative for injury, pain, and discharge, Neck: Negative for injury, pain, and swelling, Cardiovascular: Negative for chest pain, palpitations, and edema, Respiratory: Negative for shortness of breath, cough, wheezing, and pleuritic chest pain, Abdomen/GI: Negative for diarrhea, and constipation, positive nausea vomiting and abdominal pain. 06:15 All other systems are negative. Exam: 06:15 Constitutional: This is a well developed, well nourished patient who is awake, alert, sp4 and in no acute distress. Head/Face: Normocephalic, atraumatic. Eyes: Pupils equal round and reactive to light, extra-ocular motions intact. Lids and lashes normal. Conjunctiva and sclera are not injected. Cornea within normal limits. Periorbital areas with no swelling, redness, or edema. ENT: Nares patent. No nasal discharge, no septal abnormalities noted. Tympanic membranes are normal and external auditory canals are clear. Oropharynx with no redness, swelling, or masses, exudates, or evidence of obstruction, uvula midline. Mucous membranes moist. Neck: Trachea midline, no thyromegaly or masses palpated, and no cervical lymphadenopathy. Supple, full range of motion without nuchal rigidity, or vertebral point tenderness. Chest/axilla: Normal chest wall appearance and motion. Nontender with no deformity. No lesions are appreciated. Cardiovascular: Regular rate and rhythm with a normal S1 and S2. No gallops, murmurs, or rubs. Normal PMI, no JVD. No pulse deficits. Respiratory: Lungs have equal breath sounds bilaterally, clear to auscultation and percussion. No rales, rhonchi or wheezes noted. No increased work of breathing, no retractions or nasal flaring. Abdomen/GI: Soft, , with normal bowel sounds. No distension or tympany. No guarding or rebound. Diffusely tender abdomen without rebound, multiple scars from prior surgery Back: No spinal tenderness. No costovertebral tenderness. Male : Normal genitalia with no discharge or lesions. Skin: Warm, dry with normal turgor. Normal color with no rashes, no lesions, and no evidence of cellulitis. MS/ Extremity: Pulses equal, no cyanosis. Neurovascular intact. Full, normal range of motion. Neuro: Awake and alert, GCS 15, oriented to person, place, time, and situation. Cranial nerves II-XII grossly intact. Motor strength 5/5 in all extremities. Sensory grossly intact. Psych: Awake, alert, with orientation to person, place and time. Behavior, mood, and affect are within normal limits Vital Signs: 00:33 BP 117 / 83; Pulse 90; Resp 18 S; Temp 98.4(TE); Pulse Ox 98% on R/A; Weight 79.38 kg as6 (R); Height 5 ft. 3 in. (R); Pain 10/10; 03:00 BP 129 / 98; Pulse 79; Resp 16; Pulse Ox 98% on R/A; ll3 03:56 BP 139 / 91; Pulse 66; Resp 17; Pulse Ox 98% on R/A; ll3 05:00 BP 133 / 99; Pulse 74; Resp 16; Pulse Ox 100% on R/A; ll3 06:00 BP 141 / 89; Pulse 78; Resp 16; Pulse Ox 97% on R/A; ll3 00:33 Body Mass Index 31.00 (79.38 kg, 160.02 cm) as6 00:33 Pain Scale: Adult as6 MDM: 02:03 Patient medically screened. sp4 06:15 Differential Diagnosis altered mental status, Obstructed bowel, incarcerated bowel, sp4 gastritis, colitis, gastroparesis. Data reviewed: vital signs, nurses notes, EMS record, old medical records, lab test result(s), radiologic studies, CT scan. Consideration of Admission/Observation Escalation of care including admission/observation considered. ED course: CT abdomen pelvis revealed no acute findings and abdominal pelvic cavity. ED course: Patient stable for discharge home with as needed medication for nausea and pain.. 03/05 01:05 Order name: Comprehensive Metabolic Panel; Complete Time: 02:02 EDMS 03/05 01:05 Order name: Lipase; Complete Time: 02:02 EDMS 03/05 01:05 Order name: CBC with Automated Diff; Complete Time: 02:02 EDMS 03/05 03:15 Order name: Abdomen EDMS 03/05 00:52 Order name: IV Saline Lock; Complete Time: 00:52 as6 03/05 00:52 Order name: Labs collected and sent; Complete Time: 00:52 as6 Administered Medications: 06:33 Discontinued: NS 0.45 % with KCl IV 20 mEq/L 1000 ml IV at 125 ml/hr once ll3 02:35 Drug: Ondansetron IVP 4 mg Route: IVP; Site: left hand; ll3 06:33 Follow up: Response: No adverse reaction ll3 02:36 Drug: metoCLOPramide IVP 10 mg Route: IVP; Site: left hand; ll3 06:34 Follow up: Response: No adverse reaction; Marked relief of symptoms ll3 02:36 Drug: morphine IVP or IV 4 mg Route: IVP; Infused Over: 4 mins; Site: left hand; ll3 06:34 Follow up: Response: No adverse reaction ll3 02:36 Drug: Ketorolac IVP 30 mg Route: IVP; Site: left hand; ll3 06:34 Follow up: Response: No adverse reaction ll3 03:14 Drug: NS 0.45 % with KCl IV 20 mEq/L 1000 ml Route: IV; Rate: 125 ml/hr; Site: left kd3 hand; 06:33 Follow up: Response: No adverse reaction; IV Status: Completed infusion; IV Intake: ll3 500ml 04:49 Drug: morphine IVP or IV 4 mg Route: IVP; Infused Over: 4 mins; Site: left hand; kd3 06:33 Follow up: Response: No adverse reaction; Marked relief of symptoms ll3 Disposition Summary: 03/05/23 06:19 Discharge Ordered Location: Home sp4 Problem: new sp4 Symptoms: have improved sp4 Condition: Stable sp4 Diagnosis - Abdominal pain, Generalized sp4 - Nausea with vomiting, unspecified sp4 Followup: sp4 - With: Private Physician - When: 7 - 10 days - Reason: Recheck today's complaints Discharge Instructions: - Discharge Summary Sheet sp4 - Abdominal Pain, Adult, [id number] sp4 Prescriptions: - Ibuprofen 800 mg Oral Tablet - take 1 tablet by ORAL route every 8 hours As needed take with food; 30 tablet; sp4 Refills: 0, Product Selection Permitted - promethazine 25 mg Oral Tablet - take 1 tablet by ORAL route every 6 hours As needed; 20 tablet; Refills: 0, sp4 Product Selection Permitted Signatures: Dispatcher [employer] EDQuincy Hawthorne RN RN as6 Esteban Chacko RN RN ll3 Citlali Lynch RN RN kd3 Shar Gusman MD MD sp4 Corrections: (The following items were deleted from the chart) 01:26 01:04 COMPREHENSIVE METABOLIC PANEL+C.LAB.BRZ ordered. EDMS EDMS 01:26 01:04 LIPASE+C.LAB.BRZ ordered. EDMS EDMS 01:32 01:04 CBC+H.LAB.BRZ ordered. EDMS EDMS 03:15 01:49 Abdomen Pelvis W Con+CT.RAD.BRZ ordered. EDMS EDMS
--- NOTE | 2023-03-05 06:20 | ER ---
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 Coronavirus screen: At this time, the client does not indicate any symptoms associated with coronavirus-19. Ebola Screen: No symptoms or risks identified at this time. Initial Sepsis Screen: Does the patient meet any 2 criteria? No. Patient's initial sepsis screen is negative. Does the patient have a suspected source of infection? No. Patient's initial sepsis screen is negative. Risk Assessment: Do you want to hurt yourself or someone else? Patient reports no desire to harm self or others. Onset of symptoms was March 05, 2023. 00:33 Method Of Arrival: EMS: [facility] as6 00:33 Acuity: AISHA 3 as6 00:36 Care prior to arrival: Medication(s) given: zofran IV initiated. 22 GA, in the left as6 hand. Historical: - Allergies: 00:36 Nuts; as6 - PMHx: 00:36 Anxiety; Hyperlipidemia; Hypertension; spinal stenosis; diabetes mellitus; Asthma; as6 - PSHx: 00:36 Cholecystectomy; intestinal Surgery; as6 - Immunization history:: Client reports having NOT received the Covid vaccine. - Social history:: Smoking status: Patient denies any tobacco usage or history of. - Family history:: not pertinent. Screenin:55 [facility] ED Fall Risk Assessment (Adult) History of falling in the last 3 months, ll3 including since admission No falls in past 3 months (0 pts) Confusion or Disorientation No (0 pts) Intoxicated or Sedated No (0 pts) Impaired Gait No (0 pts) Mobility Assist Device Used No (0 pt) Altered Elimination No (0 pt) Score/Fall Risk Level 0 - 2 = Low Risk Oriented to surroundings, Maintained a safe environment, Educated pt \T\ family on fall prevention, incl call for assistance when getting out of bed. Abuse screen: Denies threats or abuse. Denies injuries from another. Nutritional screening: No deficits noted. Tuberculosis screening: No symptoms or risk factors identified. Assessment: 02:35 General: Appears uncomfortable, Behavior is calm, cooperative. Pain: Complains of pain ll3 in right upper quadrant and right lower quadrant Pain radiates to back Pain currently is 10 out of 10 on a pain scale. Is continuous. Neuro: Level of Consciousness is awake, alert, obeys commands, Oriented to person, place, time, situation, Reports headache. Respiratory: Respiratory effort is even, unlabored, Respiratory pattern is regular, symmetrical. GI: Abdomen is round non-distended, Reports lower abdominal pain, upper abdominal pain, nausea, vomiting. Derm: Skin is pink, warm \T\ dry. Vital Signs: 00:33 BP 117 / 83; Pulse 90; Resp 18 S; Temp 98.4(TE); Pulse Ox 98% on R/A; Weight 79.38 kg as6 (R); Height 5 ft. 3 in. (R); Pain 10/10; 03:00 BP 129 / 98; Pulse 79; Resp 16; Pulse Ox 98% on R/A; ll3 03:56 BP 139 / 91; Pulse 66; Resp 17; Pulse Ox 98% on R/A; ll3 05:00 BP 133 / 99; Pulse 74; Resp 16; Pulse Ox 100% on R/A; ll3 06:00 BP 141 / 89; Pulse 78; Resp 16; Pulse Ox 97% on R/A; ll3 00:33 Body Mass Index 31.00 (79.38 kg, 160.02 cm) as6 00:33 Pain Scale: Adult as6 ED Course: 00:29 Patient arrived in ED. sb4 00:36 Triage completed. as6 00:36 Arm band placed on. as6 01:57 Shar Gusman MD is Attending Physician. sp4 02:18 Citlali Lynch, YUSUF is Primary Nurse. kd3 03:15 Abdomen In Process Unspecified. EDMS 03:55 Patient has correct armband on for positive identification. Bed in low position. Call ll3 light in reach. Side rails up X 1. 03:55 No provider procedures requiring assistance completed. ll3 06:34 IV discontinued, intact, bleeding controlled, No redness/swelling at site. Pressure ll3 dressing applied. Administered Medications: 06:33 Discontinued: NS 0.45 % with KCl IV 20 mEq/L 1000 ml IV at 125 ml/hr once ll3 02:35 Drug: Ondansetron IVP 4 mg Route: IVP; Site: left hand; ll3 06:33 Follow up: Response: No adverse reaction ll3 02:36 Drug: metoCLOPramide IVP 10 mg Route: IVP; Site: left hand; ll3 06:34 Follow up: Response: No adverse reaction; Marked relief of symptoms ll3 02:36 Drug: morphine IVP or IV 4 mg Route: IVP; Infused Over: 4 mins; Site: left hand; ll3 06:34 Follow up: Response: No adverse reaction ll3 02:36 Drug: Ketorolac IVP 30 mg Route: IVP; Site: left hand; ll3 06:34 Follow up: Response: No adverse reaction ll3 03:14 Drug: NS 0.45 % with KCl IV 20 mEq/L 1000 ml Route: IV; Rate: 125 ml/hr; Site: left kd3 hand; 06:33 Follow up: Response: No adverse reaction; IV Status: Completed infusion; IV Intake: ll3 500ml 04:49 Drug: morphine IVP or IV 4 mg Route: IVP; Infused Over: 4 mins; Site: left hand; kd3 06:33 Follow up: Response: No adverse reaction; Marked relief of symptoms ll3 Medication: 03:55 VIS not applicable for this client. ll3 Intake: 06:33 IV: 500ml; Total: 500ml. ll3 Outcome: 06:19 Discharge ordered by . sp4 06:34 Discharged to home ambulatory, with family. ll3 06:34 Condition: stable 06:34 Discharge instructions given to patient, Instructed on discharge instructions, follow up and referral plans. medication usage, Demonstrated understanding of instructions, follow-up care, medications, Prescriptions given X 2. 06:38 Patient left the ED. ll3 Signatures: Dispatcher [employer] EDMS Quincy Nayak RN RN as6 Esteban Chacko RN RN ll3 Citlali Lynch RN RN kd3 Maria Luisa Auguste, PA-C PA-C Shar Naranjo MD MD sp4
[2023-03-05 06:42] VITALS: TEMP 98.4
[2023-03-05 06:49] VITALS: BP 141/89; O2SAT 97
--- NOTE | 2023-03-05 22:08 | RAD REPORT ---
EXAM DESCRIPTION: CT - Abdomen Pelvis Wo Contrast - 03/05/2023 6:52 am CLINICAL HISTORY: The patient is 57 years old and is Male; ABD PAIN TECHNIQUE: Axial computed tomography images of the abdomen and pelvis without intravenous contrast. Sagittal and coronal reformatted images were created and reviewed. This CT exam was performed usi ng one or more of the following dose reduction techniques: automated exposure control, adjustment o f the mA and/or kV according to patient size, and/or use of iterative reconstruction technique. COMPARISON: No relevant prior studies available. FINDINGS: Lung bases: Unremarkable. No mass. No consolidation. Mediastinum: Calcified left hilar lymph nodes. ABDOMEN: Liver: Unremarkable. Gallbladder and bile ducts: Gallbladder is surgically absent. No ductal dilation. Pancreas: Unremarkable. No ductal dilation. Spleen: Unremarkable. No splenomegaly. Adrenals: Unremarkable. No mass. Kidneys and ureters: Unremarkable. No obstructing stones. No hydronephrosis. Stomach and bowel: Postsurgical changes in the small bowel. Postsurgical changes in the distal colon. No obstruction. No mucosal thickening. PELVIS: Appendix: No findings to suggest acute appendicitis. Bladder: Unremarkable. Reproductive: Unremarkable as visualized. ABDOMEN and PELVIS: Intraperitoneal space: Unremarkable. No free air. No significant fluid collection. Bones/joints: 4 mm of anterolisthesis of L5 on S1 with bilateral pars defects. No acute fracture. No dislocation. Soft tissues: Unremarkable. Vasculature: Unremarkable. No abdominal aortic aneurysm. Lymph nodes: See above. IMPRESSION: No acute finding in the abdomen/pelvis. Electronically signed by: Bhargav Hernandez MD 03/05/2023 3:39 AM CDT Due to temporary technical issues with the PACS/Fluency reporting system, reports are being signed by the in house radiologists without review as a courtesy to insure prompt reporting. The interpreting radiologist is fully responsible for the content of the report.
== END 2023-03-05 06:38 | disposition home or self-care (01) ==
LOC: ER 00:26
DX: R10.84 Generalized abdominal pain (principal); R11.2 Nausea with vomiting, unspecified; E11.9 Type 2 diabetes mellitus without complications; I10 Essential (primary) hypertension; Z91.018 Allergy to other foods
CPT/HCPCS: 96365; 85025; 36415; 83690; 80053; 74176; 96375; 99284; 96366; J2765; J2405; J3480

== ENCOUNTER 2023-05-18 10:03 | Emergency (ER) | payer OTHER ==
--- OUTSIDE RECORDS SUMMARY | 2023-05-18 10:08 | XMS REPORT | Continuity of Care Document ---
:1965 Author Organization [facility] t Address [address] [facility] [address] [place] [address] Care Team Providers Name Role Phone KARIE [...] Date Expiration Date [place] [employer]LL[employer] DUAL [id number] 2022 ACCESS OPEN PPO 00:00:00 MEDICAID [place] [id number] 2022 00:00:00 [facility] [id number] [address] [facility] 00:00:00 (MEDICARE REPLACEMENT/ADVANTA GE - HMO) [place]: [facility] - [id number] [facility] [id number] (MEDICARE REPLACEMENT/ADVANTA GE - [place]PO) [place] [id number] [place] [facility] [id number] [facility] (MEDICARE 00:00:00 REPLACEMENT/ADVANTA GE - HMO) [employer] (MEDICARE [id number] REPLACEMENT/ADVANTA GE - PPO) Problems Condition Condition [...] rs active active ity of problems [facility] Allergies, Adverse Reactions, Alerts Allergy Allergy Status Severity Reaction(s) Onset Inactive Treating Comm ents Source Name Type Date Date Clinician NO KNOWN Drug Active [facility] ALLERGIE Class [facility] Social History Social Habit Start Date Stop Date Quantity Comments Source Exposure to 2022-07-23 2022-08-02 Not sure [facility] SARS-CoV-2 (event) 00:00:00 02:07:00 Medica l Branch Sex Ass[birth year] At [birth year] [facility] y of [place] 00:00:00 00:00:00 Medical Branch Smoking Status Start Date Stop Date Source Current Every Day Smoker [facility] Tobacco smoking consumption [facility] unknown Branch Medications Ordered Filled Start Stop Current Ordering Indication Dosage Frequency Signature Comments Components Source Medication Medication Date Date Medication? Clinician (SIG) Name Name iopamidol 2021-09- No [id number] 75mL 75 mL, Univers (ISOVUE 1-15 11-15 Intravenou ity o f 370-500 mL) 10:15: 10:15 s, ONCE, 1 [place] injection 00 :00 dose, On Medica l 75 mL e Branch 08/02/22 at 0415, Routine ondansetron 2021-09 Yes [id number] 4mg Take 1 Univers (ZOFRAN) 4 1-15 tablet by ity of mg tablet 00:00: mouth [place] 00 every 8 Medical (eight) Branch hours [...] Name Influenza vaccine, Influenza vaccine, 2021-08-05 Completed [facility] quadrivalent, quadrivalent, 12:11:00 Medical Group adjuvanted adjuvanted Vital Signs Vital Name Observation Time Observation Value Comments Source Heart rate 2022-08-02 11:30:00 93 /min [facility] Oxygen saturation in 2022-08-02 11:30:00 96 /min [facility] Arterial blood by [facility] Pulse oximetry Branch Systolic blood 2022-08-02 11:00:00 134 mm[Hg[facility] Diastolic blood 2022-08-02 11:00:00 97 mm[Hg] [facility] Respiratory rate 2022-08-02 11:00:00 21 /min [facility] Body temperature 2022-08-02 08:11:00 36.56 Blanca [facility] Body height 2022-08-02 08:11:00 160 cm [facility] Body weight 2022-08-02 08:11:00 79.379 kg [facility] BMI 2022-08-02 08:11:00 31.00 kg/m2 [facility] BP Diastolic 2022-05-05 00:00:00 89 mm[Hg] [facility] Height 2022-05-05 00:00:00 68 [in_i] [facility] BMI (Body Mass 2022-05-05 00:00:00 27.5 kg/m2 [facility] BP Systolic 2022-05-05 00:00:00 132 mm[Hg] [facility] Body Weight 2022-05-05 00:00:00 2891.2 [oz_av] [facility] BP Diastolic 2022-04-27 00:00:00 96 mm[Hg] [facility] Height 2022-04-27 00:00:00 68 [in_i] [facility] BMI (Body Mass 2022-04-27 00:00:00 26.5 kg/m2 [facility] Index) Group BP Systolic 2022-04-27 00:00:00 131 mm[Hg] [facility] Body Weight 2022-04-27 00:00:00 2792 [oz_av] [facility] BP Diastolic 2022-03-30 00:00:00 67 mm[Hg] [facility] Height 2022-03-30 00:00:00 68 [in_i] [facility] BMI (Body Mass 2022-03-30 00:00:00 26.5 kg/m2 [facility]) Group BP Systolic 2022-03-30 00:00:00 106 mm[Hg] [facility] Body Weight 2022-03-30 00:00:00 2784 [oz_av] [facility] BP Diastolic 2022-02-28 00:00:00 93 mm[Hg] [facility] Height 2022-02-28 00:00:00 68 [in_i] [facility] BMI (Body Mass 2022-02-28 00:00:00 26.5 kg/m2 [facility] Index) Group BP Systolic 2022-02-28 00:00:00 132 mm[Hg] [facility] Body Weight 2022-02-28 00:00:00 2784 [oz_av] [facility] BP Diastolic 2022-01-31 00:00:00 92 mm[Hg] [facility] Height 2022-01-31 00:00:00 68 [in_i] [facility] BMI (Body Mass 2022-01-31 00:00:00 26.8 kg/m2 [facility]) Group BP Systolic 2022-01-31 00:00:00 128 mm[Hg] [facility] Body Weight 2022-01-31 00:00:00 2816 [oz_av] [facility] BP Diastolic 2022-01-03 00:00:00 87 mm[Hg] [facility] Height 2022-01-03 00:00:00 68 [in_i] [facility] BMI (Body Mass 2022-01-03 00:00:00 26.8 kg/m2 [facility]) Group BP Systolic 2022-01-03 00:00:00 124 mm[Hg] [facility] Body Weight 2022-01-03 00:00:00 2816 [oz_av] [facility] BP Diastolic 2021-12-06 00:00:00 85 mm[Hg] [facility] Height 2021-12-06 00:00:00 68 [in_i] [facility] BMI (Body Mass 2021-12-06 00:00:00 27.4 kg/m2 [facility]) Group BP Systolic 2021-12-06 00:00:00 131 mm[Hg] [facility] Body Weight 2021-12-06 00:00:00 2887 [oz_av] [facility] BP Diastolic 2021-11-18 00:00:00 85 mm[Hg] [facility] Height 2021-11-18 00:00:00 68 [in_i] [facility] BMI (Body Mass 2021-11-18 00:00:00 27.4 kg/m2 [facility]) Group BP Systolic 2021-11-18 00:00:00 133 mm[Hg] [facility] Body Weight 2021-11-18 00:00:00 2880 [oz_av] [facility] BP Diastolic 2021-10-05 00:00:00 89 mm[Hg] [facility] Height 2021-10-05 00:00:00 68 [in_i] [facility] BMI (Body Mass 2021-10-05 00:00:00 27.7 kg/m2 [facility]) Group BP Systolic 2021-10-05 00:00:00 124 mm[Hg] [facility] Body Weight 2021-10-05 00:00:00 2912 [oz_av] [facility] BP Diastolic 2021-08-24 00:00:00 78 mm[Hg] [facility] Height 2021-08-24 00:00:00 68 [in_i] [facility] BMI (Body Mass 2021-08-24 00:00:00 28.6 kg/m2 [facility]) Group BP Systolic 2021-08-24 00:00:00 122 mm[Hg] [facility] Body Weight 2021-08-24 00:00:00 188 [lb_av] [facility] BP Diastolic 2021-08-05 00:00:00 84 mm[Hg] [facility] Height 2021-08-05 00:00:00 68 [in_i] [facility] BMI (Body Mass 2021-08-05 00:00:00 27.5 kg/m2 [facility]) Group BP Systolic 2021-08-05 00:00:00 118 mm[Hg] [facility] Body Weight 2021-08-05 00:00:00 2896 [oz_av] [facility] Procedures Procedure Date / Time Performing Clinician Source Performed URINALYSIS 2022-08-02 10:17:00 Kierra Bautista [facility] CT ABDOMEN PELVIS W 2022-08-02 09:15:15 Kierra Bautista [facility] CONTRAST [facility] Branch LIPASE 2022-08-02 08:16:00 Kierra Bautista [facility] HEPATIC FUNCTION PANEL 2022-08-02 08:16:00 Kierra Bautista [facility] ([id number]) (ALB,T.PRO,BILI Medical Branch T,BU/BC,ALT,AST,ALK PHOS) BASIC METABOLIC PANEL (NA, 2022-08-02 08:16:00 Kierra Bautista [facility] K, CL, CO2, GLUCOSE, BUN, Medica l Branch CREATININE, CA) CBC WITH DIFF 2022-08-02 08:16:00 Kierra Bautista [facility] XR, tibia + fibula, 2 view 2022-04-27 00:00:00 [facility] XR, knee, 3 view 2022-04-27 00:00:00 [facility] XR, lumbosacral spine, 2 2022-04-27 00:00:00 [facility] 3 view Group XR, thoracic spine, 2 view 2022-04-27 00:00:00 M [facility] XR, shoulder, 2 or more 2022-04-27 00:00:00 [facility] CT, abdomen + pelvis, w/o 2022-04-27 00:00:00 Sd [facility] ECG WITH INTERPRETATION 12 2021-08-05 00:00:00 [facility] XR, chest, 2 view 2021-08-05 00:00:00 [facility] Cardiac Catheterization 2018-03-18 00:00:00 [facility] Partial Resection of Colon 1999-09-18 00:00:00 [facility] Plan of Care Planned Activity Planned Date Details Comments Source Diagnostic Test 2022-05-05 CMP, serum or [facility] 00:00:00 plasma [code = Group CMP, serum or plasma] Diagnostic Test 2022-05-05 urinalysis, [facility] 00:00:00 complete [code = Group urinalysis, complete] Diagnostic Test 2022-05-05 microalbumin/creat [facility]ending 00:00:00 inine, mass ratio, Group urine [code = microalbumin/creat inine, mass ratio, urine] Encounters Start End Encounter Admission Attending Care Care Encounter Source Date/Time Date/Time Type Type Clinicians Facility Department ID 2022-08-02 2022-08-02 Emergency X MICHELE [facility] ERT [id number] Univers 02:08:00 06:26:00 KIERRA larose [facility] 2022-08-02 2022-08-02 Emergency Michele [facility] [id number] Univers 02:08:00 06:26:00 Kierra BAI [id number] [facility] [id number] [facility] [id number] [facility] 084 Branch 2022-06-13 2022-06-13 Outpatient Koudela_A MMG [facility] [id number] [facility] 00:00:00 00:00:00 0926 [facility] 2022-05-18 2022-05-18 Emergency ER Cruz, [facility] [id number] [place] 16:09:00 18:58:00 Halle -[id number] [facility] 2022-05-05 2022-05-05 Outpatient EL YARIEL, [facility] [id number] [place] 10:53:00 10:53:00 ARIEL -[id number] [facility] 2022-05-05 2022-05-05 Arielkashif Verala_A MMG [place] - [id number] 22 [place] 00:00:00 00:00:00 Discovery Yariel 18 da PA-C: [address] [facility] [address], [facility] [place] [address] , Ph. 2022-04-27 2022-04-27 Outpatient UR YARIEL, [facility] [id number] [place] 11:14:00 11:14:00 ARIEL [id number] [facility] 2022-04-27 2022-04-27 Ari[place] Saldivar_[place] G [place] - [id number] 22 [facility] 00:00:00 00:00:00 Discovery Yariel 10 da PA-C: [address] [facility] [address], [facility] [place] [address] , Ph. 2022-04-18 2022-04-18 Emergency ER Mina, [facility] [id number] [place] 13:18:00 17:27:00 Parker [id number] [facility] 2022-04-15 2022-04-15 Outpatient Koudela_A G [facility] [id number] -2021 [place] 00:00:00 00:00:00 0729 Medical Group 2022-03-30 2022-03-30 Ariel Koudela_A MMG [place] - [id number] 22 [place] 00:00:00 00:00:00 Discovery Yariel 0713 da PA-C: [address] [facility] [address], [facility] [place] [address] , Ph. 2022-02-28 2022-02-28 Ariel Sanchezudela_[place] MMG [place] - [id number] 22 [place] 00:00:00 00:00:00 Discovery Yariel 0613 da PA-C: [address] [facility] [address], [facility] [place] [address] , Ph. 2022-02-25 2022-02-25 Emergency ER Iwona, [facility] [id number] [place] 13:30:00 19:22:00 Denise -[id number] [facility] 2022-02-05 2022-02-05 Outpatient Koudela_A [facility] [id number] -2021 [place] 12:33:00 12:33:00 0521 [facility] 2022-01-31 2022-01-31 Outpatient AURELIO YARIEL, [facility] [id number] [place] 11:31:00 11:31:00 ARIEL -[id number] [facility] 2022-01-31 2022-01-31 Ari[place] Sanchezudela_[place] - [id number] 22 [facility] 00:00:00 00:00:00 Discovery Yariel 0516 da PA-C: [address] [address], [facility] [place] [address] , Ph. 2022-01-12 2022-01-12 Outpatient AURELIO Fernandez, [facility] [id number] [place] 09:58:00 09:58:00 Shira -[id number] [facility] 2022-01-03 2022-01-03 Ariel Sanchezudela_[place] MM[place] - [id number] 22 [place] 00:00:00 00:00:00 Discovery Yariel 0418 da PA-C: [address] [facility] [address], [facility] [place] [address] , Ph. 2021-12-17 2021-12-17 Outpatient Koudela_A MMG [place]G [id number] -2021 [place] 06:11:00 06:11:00 0401 da [facility] 2021-12-06 2021-12-06 Ariel Koudela_[place] MM[place] - [id number] 22 [place] 00:00:00 00:00:00 Discovery Yariel 0321 da PA-C: [address] [facility] [address], [facility] [place] [address] , Ph. 2021-12-02 2021-12-02 Outpatient AURELIO Simmons, [facility] [id number] [place] 10:10:00 10:10:00 Adarsh -[id number] [facility] 2021-11-18 2021-11-18 Outpatient AURELIO SALDIVAR, [facility] [id number] [place] 10:39:00 10:39:00 ARIEL [id number] [facility] 2021-11-18 2021-11-18 Ariel Verala_A MMG [place] - [id number] 22 [place] 00:00:00 00:00:00 Discovery Yariel 0303 da PA-C: [address] [facility] [address], [facility] [place] [address] , Ph. 2021-11-17 2021-11-17 Outpatient AURELIO Simmons, [facility] [id number] [place] 10:55:00 10:55:00 Adarsh -[id number] da [facility] 2021-10-29 2021-10-29 [place] [id number] -2021 [place] 04:41:00 04:41:00 0211 [facility] 2021-10-27 2021-10-27 Outpatient Koudela_A MMG MMG [id number] -2021 [place] 02:05:00 02:05:00 0209 [facility] 2021-10-19 2021-10-19 Outpatient AURELIO Simmons, [facility] [id number] [place] 09:53:00 09:53:00 [facility] -[id number] [facility] 2021-10-18 2021-10-18 Outpatient Koudela_A MMG MMG [id number] -2021 [place] 11:04:00 11:04:00 0131 [facility] 2021-10-05 2021-10-05 Ariel Koudela_[place] MM[place] - [id number] 22 [place] 00:00:00 00:00:00 Discovery Yariel 0118 rene CHEN: [facility] [address] [address] , Ph. 2021-09-26 2021-10-01 Inpatient ER Jimenez, [facility] [id number] [place] 12:55:00 14:03:00 Jacy -[id number] [facility] 2021-09-25 2021-09-25 Emergency ER MONTANEZ, [facility] [id number] [place] 11:01:00 14:06:00 ANITA -[id number] [facility] 2021-08-25 2021-08-25 Outpatient Koudela_A MMG G [id number] -2020 [place] 05:53:00 05:53:00 1208 [facility] 2021-08-24 2021-08-24 Miah Koudela_[place] MMG [place] - [id number] 21 [place] 00:00:00 00:00:00 Bhargav Johnson MD: Medical Med[facility] [address], [place] [address] , Ph. [phone] 2021-08-09 2021-08-09 Outpatient Koudela_A MMG [facility] [id number] -2020 [place] 04:17:00 04:17:00 1122 [facility] 2021-08-06 2021-08-06 Outpatient Koudela_A MMG [place] [id number] -2020 [place] 10:50:00 10:50:00 1119 [facility] 2021-08-05 2021-08-05 Ariel Koudela_[place] MMG [place] - [id number] 21 [place] 00:00:00 00:00:00 Discovery Yariel 1118 da PA-C: [address] [facility] [place] [facility] [address], [facility] [place] [address] , Ph. 2021-08-04 2021-08-04 Outpatient Koudela_A MMG [facility] [id number] -[id number] [place] 05:51:00 05:51:00 1117 [facility] 2021-08-03 2021-08-03 Outpatient Zuniga_F MMG [facility] [id number]- [id number] [place] 01:34:00 01:34:00 1116 [facility] 2021-05-29 2021-05-29 Emergency ER BA, JORGE A [facility] [id number] [place] 07:18:00 12:30:00 -[id number] [facility] 2021 2021 Emergency ER ROJAS, [facility] [id number] [place] 21:16:00 22:23:00 WASIM -[id number] [facility] 2021-04-05 2021-04-05 Outpatient Zuniga_F MMG [facility] [id number]- 2020 [place] 02:45:00 02:45:00 0719 Medical Group Results Test Description Test Time Test Comments Results Result Comments Source Urinalysis complete W Reflex Culture panel - Urine 2022-04-18 0 09:29:00 Test Item Value Reference Range Interpretation Comme nts Color of Urine by Auto (test code = 40646-8) yellow Appearance of Urine (test code = 5767-9) clear clear Glucose [Presence] in Urine by Automated test strip negative ne gative (test code = 12174-4) Bilirubin.total [Mass/volume] in Urine (test code = negative ne gative 1978-02) Ketones [Mass/volume] in Urine by Automated test strip trace negative (test code = 20128-2) Specific gravity of Urine by Automated test strip (test 1.027 1.003-1.030 code = 75107-4) blood urine (test code = blood urine) negative negative pH of Urine (test code = 2756-5) 6.000 5-9 protein urine (UA) (test code = protein urine (UA)) =1+ (50 ne gative H Urobilinogen [Presence] in Urine (test code = 87670-0) =2.0 0.2-1.0 H Nitrite [Presence] in Urine by Test strip (test code = negative negative 5802-4) Leukocyte esterase [Presence] in Urine by Automated negative ne gative test strip (test code = 82746-4) Erythrocytes [#/volume] in Urine by Automated count =1-5 0- 5 (test code = 798-9) Leukocytes [#/area] in Urine sediment by Automated =1-5 0-5 count (test code = 33535-1) Epithelial cells [Presence] in Urine sediment by Light <1 0-5 microscopy (test code = 73124-0) Bacteria identified in Urine by Culture (test code = none detected none detect 630-4) Casts [#/area] in Urine sediment by Automated count none detected n one detect (test code = 85460-8) urine culture added? (test code = urine culture added?) [facility] W Auto Differential panel - [id number] 09:29:00 Test Item Value Reference Range Interpretation Comments white blood count (test code = 6.2 K/uL 4.0-12.3 white blood count) red blood count (test code = red 4.90 M/uL 3.80-5.80 blood count) hemoglobin (test code = 14.1 g/dL 11.7-17.2 hemoglobin) hematocrit (test code = 43.3 % 35.0-51.0 hematocrit) MCV [Entitic volume] (test code = 88.4 fL 83.0-100.0 86817-8) mean corpuscular hemoglobin (test 28.8 pg 26.8-33.4 [...] 44.7-82.4 leukocytes in Blood (test code = 67372-3) Immature granulocytes [#/volume] 0.01 K/uL 0.00-0.03 in Blood (test code = 37231-5) lymphocyte% (test code = 32.5 % 10.0-50.0 lymphocyte%) mono % (test code = mono %) 11.7 % 3.9-13.4 eos % (test code = eos %) 2.1 % 0.0-6.4 basophil % (test code = basophil 0.6 % 0.2-1.2 %) Band form neutrophils [#/volume] 3.30 K/uL 1.78-5.38 in Blood (test code = 66642-1) Lymphocytes [#/volume] in Specimen 2.03 K/uL 1.32-3.57 by Automated count (test code = 46145-5) mono # (test code = mono #) 0.73 K/uL 0.30-0.82 eos # (test code = eos #) 0.13 K/uL 0.04-0.54 basophil # (test code = basophil 0.04 K/uL 0.01-0.08 #) NRBC% (test code = NRBC%) 0 /100 WBC 0-0.2 NRBC# (test code = NRBC#) 0 K/uL [facility], method unspecified - [id number] 09:29:00NeutrophilsBandLymphocyteAtypical LymphMonocyteEosinophilBasophilAbs Neutrophil Count (Man)Abs LymphCount (Man)Abs Monocyte Count (Man)Abs Eosinophil Count (Man)Abs Basophil Count (Man)Platelet EstimatePlatelet MorphologyHypochromasiaPoikilocytosisAnisocytosisStomatocyteMatagorda Medical GroupComprehensive metabolic 2000 panel - Serum or [id number] 09:29:00 Test Item Value Reference Range Interpretation [...] Serum or Plasma (test code = 6768-6) [facility] HospitalAm[facility] [Enzymatic activity/volume] in Serum or Plasma 2022-04-27 00:00:00 Test Item Value Reference Range Interpretation Comments Amylase [Enzymatic activity/volume] in 62 U/L 28-100 Serum or Plasma (test code = 1798-8) [facility] [Enzymatic activity/volume] in Serum or Plasma 2022-04-27 00:00:00 Test Item Value Reference Range Interpretation Comments lipase (test code = lipase) 41 U/L 13-60 [facility] Hospital[facility]ysis complete panel - [id number] 12:30:00 Test Item Value Reference Range Interpretation Comments Color of Urine by Auto (test light yellow code = 48403-1) Appearance of Urine (test code clear clear = 5767-9) Glucose [Presence] in Urine by negative negative Automated test strip (test code = 09844-5) Bilirubin.total [Mass/volume] negative negative in Urine (test code = 1978-6) Ketones [Mass/volume] in Urine negative negative by Automated test strip (test code = 56658-3) Specific gravity of Urine by 1.029 1.003-1.030 Automated test strip (test code = 91778-9) blood urine (test code = blood negative negative urine) pH of Urine (test code = 7.000 5-9 2756-5) protein urine (UA) (test code = negative negative protein urine (UA)) Urobilinogen [Presence] in normal 0.2-1.0 Urine (test code = 46765-3) Nitrite [Presence] in Urine by negative negative Test strip (test code = 5802-4) Leukocyte esterase [Presence] negative negative in Urine by Automated test strip (test code = 23190-9) Erythrocytes [#/volume] in <1 0-5 Urine by Automated count (test code = 798-9) Leukocytes [#/area] in Urine <1 0-5 sediment by Automated count (test code = 59863-6) Epithelial cells [Presence] in <1 0-5 Urine sediment by Light microscopy (test code = 44642-3) Bacteria identified in Urine by none detected none detect Culture (test code = 630-4) Casts [#/area] in Urine none detected none detect sediment by Automated count (test code = 84920-7) urine culture added? (test code no = urine culture added?) [facility] Hospital[facility] complete panel - [id number] 12:30:00 Test Item Value Reference Range Interpretation Comments Color of Urine by Auto (test light yellow code = 23226-4) Appearance of Urine (test code clear clear = 5767-9) Glucose [Presence] in Urine by negative negative Automated test strip (test code = 91139-3) Bilirubin.total [Mass/volume] negative negative in Urine (test code = 1978-6) Ketones [Mass/volume] in Urine negative negative by Automated test strip (test code = 52694-2) Specific gravity of Urine by 1.029 1.003-1.030 Automated test strip (test code = 22613-9) blood urine (test code = blood negative negative urine) pH of Urine (test code = 7.000 5-9 2756-5) protein urine (UA) (test code = negative negative protein urine (UA)) Urobilinogen [Presence] in normal 0.2-1.0 Urine (test code = 80437-5) Nitrite [Presence] in Urine by negative negative Test strip (test code = 5802-4) Leukocyte esterase [Presence] negative negative in Urine by Automated test strip (test code = 81372-1) Erythrocytes [#/volume] in <1 0-5 Urine by Automated count (test code = 798-9) Leukocytes [#/area] in Urine <1 0-5 sediment by Automated count (test code = 66629-8) Epithelial cells [Presence] in <1 0-5 Urine sediment by Light microscopy (test code = 35886-9) Bacteria identified in Urine by none detected none detect Culture (test code = 630-4) Casts [#/area] in Urine none detected none detect sediment by Automated count (test code = 43463-3) urine culture added? (test code no = urine culture added?) [facility] type and Indirect antibody screen panel - Blood 2022-04-18 11:39:00 Test Item Value Reference Range Interpretation Comments Rh [Type] in Blood (test code = 4+ 75837-4) ABO and Rh group panel - Blood A positive (test code = 86405-9) [facility] type and Indirect antibody screen panel - Blood 2022-04-18 11:39:00 Test Item Value Reference Range Interpretation Comments Rh [Type] in Blood (test code = 4+ 98997-1) ABO and Rh group panel - Blood A positive (test code = 74308-6) [facility] by Automated [id number] 11:34:00 Test Item Value Reference Range Interpretation Comments white blood count (test code = 6.5 K/uL 4.0-12.3 white blood count) red blood count (test code = red 4.52 M/uL 3.80-5.80 blood count) hemoglobin (test code = hemoglobin) 13.5 g/dL 11.7-17.2 hematocrit (test code = hematocrit) 39.6 % 35.0-51.0 MCV [Entitic volume] (test code = 87.6 fL 83.0-100.0 58064-1) mean corpuscular hemoglobin (test 29.9 pg 26.8-33.4 [...] 8.0 fL 9.4-12.6 L mean platelet volume) [id number] 11:34:00 Test Item Value Reference Range Interpretation Comments prothrombin time (test code = 9.9 seconds 10.3-12.3 L prothrombin time) INR in Blood by Coagulation assay <0.94 (test code = 40766-4) [facility] [id number] 11:34:00 Test Item Value Reference Range Interpretation Comments INR in Blood by Coagulation 24.5 seconds 22.5-37.0 assay (test code = 88373-4) [facility]Com[facility] 2000 panel - Serum or Plasma [...] Serum or Plasma (test code = 6768-6) [facility] HospitalCreatine kinase [Enzymatic activity/volume] in Serum or [id number] 11:34:00 Test Item Value Reference Range Interpretation Comments creatine kinase (test code = creatine 192 U/L 20-200 kinase) [facility] panel - Blood by Automated [id number] 11:34:00 Test Item Value Reference Range Interpretation Comments white blood count (test code = 6.5 K/uL 4.0-12.3 white blood count) red blood count (test code = red 4.52 M/uL 3.80-5.80 blood count) hemoglobin (test code = hemoglobin) 13.5 g/dL 11.7-17.2 hematocrit (test code = hematocrit) 39.6 % 35.0-51.0 MCV [Entitic volume] (test code = 87.6 fL 83.0-100.0 06934-0) mean corpuscular hemoglobin (test 29.9 pg 26.8-33.4 [...] 8.0 fL 9.4-12.6 L mean platelet volume) [facility][id number] 11:34:00 Test Item Value Reference Range Interpretation Comments prothrombin time (test code = 9.9 seconds 10.3-12.3 L prothrombin time) INR in Blood by Coagulation assay <0.94 (test code = 52212-4) [facility] [id number] 11:34:00 Test Item Value Reference Range Interpretation Comments INR in Blood by Coagulation 24.5 seconds 22.5-37.0 assay (test code = 86254-0) [facility] - Serum or Plasma [...] Serum or Plasma (test code = 6768-6) [facility]Creat[facility] kinase [Enzymatic activity/volume] in Serum or [id number] 11:34:00 Test Item Value Reference Range Interpretation Comments creatine kinase (test code = creatine 192 U/L 20-200 kinase) [facility] W Auto Differential panel - [id number] 09:45:00 Test Item Value Reference Range Interpretation Comments white blood count (test code = 5.6 K/uL 4.0-12.3 white blood count) red blood count (test code = red 4.27 M/uL 3.80-5.80 blood count) hemoglobin (test code = 12.6 g/dL 11.7-17.2 hemoglobin) hematocrit (test code = 38.2 % 35.0-51.0 hematocrit) MCV [Entitic volume] (test code = 89.5 fL 83.0-100.0 50617-5) mean corpuscular hemoglobin (test 29.5 pg 26.8-33.4 [...] 44.7-82.4 leukocytes in Blood (test code = 41339-9) Immature granulocytes [#/volume] 0.01 K/uL 0.00-0.03 in Blood (test code = 69619-7) lymphocyte% (test code = 36.8 % 10.0-50.0 lymphocyte%) mono % (test code = mono %) 11.7 % 3.9-13.4 eos % (test code = eos %) 3.6 % 0.0-6.4 Basophils/100 leukocytes in 0.9 % 0.2-1.2 Specimen (test code = 76755-4) Band form neutrophils [#/volume] 2.64 K/uL 1.78-5.38 in Blood (test code = 54484-1) Lymphocytes [#/volume] in Specimen 2.07 K/uL 1.32-3.57 by Automated count (test code = 33431-6) mono # (test code = mono #) 0.66 K/uL 0.30-0.82 eos # (test code = eos #) 0.20 K/uL 0.04-0.54 basophil # (test code = basophil 0.05 K/uL 0.01-0.08 #) NRBC% (test code = NRBC%) 0 /100 WBC 0-0.2 NRBC# (test code = NRBC#) 0 K/uL [facility] - Serum or Plasma [...] Serum or Plasma (test code = 6768-6) [facility] HospitalLip[facility] panel - Serum or [id number] 09:45:00 Test Item Value Reference Range Interpretation Comments cholesterol level (test code = 113 mg/dL 150-200 L cholesterol level) triglycerides level (test code = 148 mg/dL <150 triglycerides level) HDL cholesterol (test code = HDL 36 mg/dL >55 L cholesterol) LDL cholesterol direct (test code = 61 mg/dL <100 LDL cholesterol direct) cholesterol risk ratio (test code = 3.138 cholesterol risk ratio) [facility] HospitalUrinalysis complete W Reflex Culture panel - Urine 2022-01-31 09:45:00 Test Item Value Reference Range Interpretation Comments Color of Urine by Auto (test yellow code = 12730-0) Appearance of Urine (test code clear clear = 5767-9) Glucose [Presence] in Urine by negative negative Automated test strip (test code = 64048-6) Bilirubin.total [Mass/volume] negative negative in Urine (test code = 1978-6) Ketones [Mass/volume] in Urine negative negative by Automated test strip (test code = 03875-0) Specific gravity of Urine by 1.031 1.003-1.030 H Automated test strip (test code = 03326-9) blood urine (test code = blood negative negative urine) pH of Urine (test code = 6.000 5-9 2756-5) protein urine (UA) (test code = =1+ (30 negative H protein urine (UA)) Urobilinogen [Presence] in =2.0 0.2-1.0 H Urine (test code = 88080-3) Nitrite [Presence] in Urine by negative negative Test strip (test code = 5802-4) Leukocyte esterase [Presence] negative negative in Urine by Automated test strip (test code = 61016-5) Erythrocytes [#/volume] in =1-5 0-5 Urine by Automated count (test code = 798-9) Leukocytes [#/area] in Urine <1 0-5 sediment by Automated count (test code = 21661-3) Epithelial cells [Presence] in <1 0-5 Urine sediment by Light microscopy (test code = 69921-7) Bacteria identified in Urine by none detected none detect Culture (test code = 630-4) Casts [#/area] in Urine =2-5 none detect sediment by Automated count (test code = 92775-1) urine culture added? (test code no = urine culture added?) [facility] HospitalDifferential panel, method unspecified - [id number] 00:00:00NeutrophilsBandLymphocyteAtypical LymphMonocyteEosinophilBasophilMetamyelocyteAbs Neutrophil Count (Man)Abs Lymph Count (Man)Abs Monocyte Count (Man)Abs Eosinophil Count (Man)Abs Basophil Count (Man)Platelet EstimatePlatelet MorphologyMacrocytosisYalobusha [facility] Hospital Hemoglobin A1c [Mass/volume] in [id number] 00:00:00 Test Item Value Reference Range Interpretation Comments Hemoglobin A1c [Mass/volume] in Blood 5.7 % 4.0-6.0 (test code = 02739-3) [facility]Com[facility] 2000 [facility] - Serum or Plasma [...] Serum or Plasma (test code = 6768-6) [facility] HospitalCobalamin (Vitamin B12) [Mass/volume] in Serum or Plasma 2021-11-18 00:00:00 Test Item Value Reference Range Interpretation Comments vitamin B12, serum (test code = vitamin 330 B12, serum) [facility] W Auto Differential panel - [id number] 03:50:00 Test Item Value Reference Range Interpretation Comments white blood count (test code = 10.6 K/uL 4.0-12.3 white blood count) red blood count (test code = red 4.27 M/uL 3.80-5.80 blood count) hemoglobin (test code = 12.1 g/dL 11.7-17.2 hemoglobin) hematocrit (test code = 36.6 % 35.0-51.0 hematocrit) MCV [Entitic volume] (test code = 85.7 fL 83.0-100.0 20774-7) mean corpuscular hemoglobin (test 28.3 pg 26.8-33.4 [...] 44.7-82.4 leukocytes in Blood (test code = 17641-0) Immature granulocytes [#/volume] 0.10 K/uL 0.00-0.03 H in Blood (test code = 96239-5) lymphocyte% (test code = 19.0 % 10.0-50.0 lymphocyte%) mono % (test code = mono %) 7.1 % 3.9-13.4 eos % (test code = eos %) 0 % 0.0-6.4 Basophils/100 leukocytes in 0.1 % 0.2-1.2 L Unspecified specimen (test code = 04326-3) Band form neutrophils [#/volume] 7.75 K/uL 1.78-5.38 H in Blood (test code = 90686-6) Lymphocytes [#/volume] in 2.02 K/uL 1.32-3.57 Unspecified specimen by Automated count (test code = 36009-8) mono # (test code = mono #) 0.75 K/uL 0.30-0.82 eos # (test code = eos #) 0.00 K/uL 0.04-0.54 L basophil # (test code = basophil 0.01 K/uL 0.01-0.08 #) NRBC% (test code = NRBC%) 0 /100 WBC 0-0.2 NRBC# (test code = NRBC#) 0 K/uL [facility] metabolic 2000 panel - Serum or [id number] 03:50:00 Test Item Value Reference Range Interpretation [...] = 8.0 mg/dL 8.6-10.0 L calcium level) [facility] HospitalDifferential panel, method unspecified - [id number] 00:00:00NeutrophilsBandLymphocyteAtypical LymphMonocyteEosinophilBasophilMetamyelocyteMyelocytePromyelocyteBlastsNucleated Red Blood CellPlasma CellDifferential CommentAbs Neutrophil Count (Man)Abs Lymph Count(Man)Abs Monocyte Count (Man)Abs Eosinophil Count (Man)Abs Basophil Count (Man)Platelet EstimatePlatelet MorphologyHypochromasiaPoikilocytosisAnisocytosisMicrocytosisMacrocytosisSchisto cytesTarget CellsStomatocyteToxic GranulationBurr CellsHypersegmented PolysSmudge CellsOchsner Medical Center W Auto Differential panel - Blood 2021-09-30 [...] volume] (test code = 89.2 fL 83.0-100.0 12357-8) mean corpuscular hemoglobin (test 28.8 pg 26.8-33.4 [...] H leukocytes in Blood (test code = 47872-2) Immature granulocytes [#/volume] 0.11 K/uL 0.00-0.03 H in Blood (test code = 73190-9) lymphocyte% (test code = 10.0 % 10.0-50.0 lymphocyte%) mono % (test code = mono %) 3.0 % 3.9-13.4 L eos % (test code = eos %) 0 % 0.0-6.4 Basophils/100 leukocytes in 0.0 % 0.2-1.2 L Unspecified specimen (test code = 47296-5) Band form neutrophils [#/volume] 8.69 K/uL 1.78-5.38 H in Blood (test code = 85545-4) Lymphocytes [#/volume] in 1.01 K/uL 1.32-3.57 L Unspecified specimen by Automated count (test code = 53124-7) mono # (test code = mono #) 0.30 K/uL 0.30-0.82 eos # (test code = eos #) 0.00 K/uL 0.04-0.54 L basophil # (test code = basophil 0.00 K/uL 0.01-0.08 L #) NRBC% (test code = NRBC%) 0 /100 WBC 0-0.2 NRBC# (test code = NRBC#) 0 K/uL [facility] metabolic 2000 panel - Serum or [id number] 03:28:00 Test Item Value Reference Range Interpretation [...] = 8.3 mg/dL 8.6-10.0 L calcium level) [facility] HospitalDifferential panel, method unspecified - [id number] 00:00:00NeutrophilsBandLymphocyteAtypical LymphMonocyteEosinophilBasophilMetamyelocyteMyelocytePromyelocyteBlastsNucleated Red Blood CellPlasma CellDifferential CommentAbs Neutrophil Count (Man)Abs Lymph Count(Man)Abs Monocyte Count (Man)Abs Eosinophil Count (Man)Abs Basophil Count (Man)Platelet EstimatePlatelet MorphologyHypochromasiaPoikilocytosisAnisocytosisMicrocytosisMacrocytosisSchisto cytesTarget CellsStomatocyteToxic GranulationBurr CellsHypersegmented PolysSmudge CellsYalobusha General HospitalClostridioides difficile toxin A+B [Presence] in [id number] 08:35:00 Test Item Value Reference Range Interpretation Comments results (test code = results) Clostridioides difficile 027 presumptive BI-[id number] strain DNA negative [Presence] in Stool by PRANAV with probe detection (test code = 56194-6) [facility] HospitalLeukocytes [Presence] in Stool by Light microscopy 2021-09-29 08:35:00ResultsYalobusha General HospitalCBC W Auto Differential panel - [id number] 02:50:00 Test Item Value Reference Range Interpretation Comments white blood count (test code = 12.0 K/uL 4.0-12.3 white blood count) red blood count (test code = red 4.17 M/uL 3.80-5.80 blood count) hemoglobin (test code = 11.9 g/dL 11.7-17.2 hemoglobin) hematocrit (test code = 36.2 % 35.0-51.0 hematocrit) MCV [Entitic volume] (test code = 86.8 fL 83.0-100.0 57790-5) mean corpuscular hemoglobin (test 28.5 pg 26.8-33.4 [...] H leukocytes in Blood (test code = 81967-0) Immature granulocytes [#/volume] 0.09 K/uL 0.00-0.03 H in Blood (test code = 75677-7) lymphocyte% (test code = 7.4 % 10.0-50.0 L lymphocyte%) mono % (test code = mono %) 2.8 % 3.9-13.4 L eos % (test code = eos %) 0 % 0.0-6.4 Basophils/100 leukocytes in 0.0 % 0.2-1.2 L Unspecified specimen (test code = 12790-3) Band form neutrophils [#/volume] 10.72 K/uL 1.78-5.38 H in Blood (test code = 69482-7) Lymphocytes [#/volume] in 0.89 K/uL 1.32-3.57 L Unspecified specimen by Automated count (test code = 76148-5) mono # (test code = mono #) 0.34 K/uL 0.30-0.82 eos # (test code = eos #) 0.00 K/uL 0.04-0.54 L basophil # (test code = basophil 0.00 K/uL 0.01-0.08 L #) NRBC% (test code = NRBC%) 0 /100 WBC 0-0.2 NRBC# (test code = NRBC#) 0 K/uL [facility] metabolic 2000 panel - Serum or [id number] 02:50:00 Test Item Value Reference Range Interpretation [...] code = 8.6 mg/dL 8.6-10.0 calcium level) [facility] HospitalDifferential panel, method unspecified - [id number] 00:00:00NeutrophilsBandLymphocyteAtypical LymphMonocyteEosinophilBasophilMetamyelocyteMyelocytePromyelocyteBlastsNucleated Red Blood CellDifferential CommentAbs Neutrophil Count (Man)Abs Lymph Count (Man)Abs Monocyte Count (Man)Abs Eosinophil Count (Man)Abs Basophil Count (Man)Platelet EstimatePlatelet Morphol ogyHypochromasiaPoikilocytosisAnisocytosisMicrocytosisMacrocytosisTarget CellsBurr CellsHypersegmented PolysYalobusha General HospitalBasic metabolic 2000 panel - Serum or [id number] 03:05:00 Test Item Value Reference Range Interpretation [...] code = 9.0 mg/dL 8.6-10.0 calcium level) [facility] W Auto Differential panel - [id number] 03:05:00 Test Item Value Reference Range Interpretation Comments white blood count (test code = 14.1 K/uL 4.0-12.3 white blood count) red blood count (test code = red 4.35 M/uL 3.80-5.80 blood count) hemoglobin (test code = 12.5 g/dL 11.7-17.2 hemoglobin) hematocrit (test code = 37.8 % 35.0-51.0 hematocrit) MCV [Entitic volume] (test code = 86.9 fL 83.0-100.0 62128-3) mean corpuscular hemoglobin (test 28.7 pg 26.8-33.4 [...] H leukocytes in Blood (test code = 45923-4) Immature granulocytes [#/volume] 0.09 K/uL 0.00-0.03 H in Blood (test code = 02086-4) lymphocyte% (test code = 8.2 % 10.0-50.0 L lymphocyte%) mono % (test code = mono %) 2.8 % 3.9-13.4 L eos % (test code = eos %) 0 % 0.0-6.4 Basophils/100 leukocytes in 0.1 % 0.2-1.2 L Unspecified specimen (test code = 04857-3) Band form neutrophils [#/volume] 12.42 K/uL 1.78-5.38 H in Blood (test code = 10603-8) Lymphocytes [#/volume] in 1.15 K/uL 1.32-3.57 L Unspecified specimen by Automated count (test code = 38401-2) mono # (test code = mono #) 0.40 K/uL 0.30-0.82 eos # (test code = eos #) 0.00 K/uL 0.04-0.54 L basophil # (test code = basophil 0.01 K/uL 0.01-0.08 #) NRBC% (test code = NRBC%) 0 /100 WBC 0-0.2 NRBC# (test code = NRBC#) 0 K/uL [facility] HospitalDifferential panel, method unspecified - [id number] 00:00:00NeutrophilsBandLymphocyteAtypical LymphMonocyteEosinophilBasophilMetamyelocyteMyelocytePromyelocyteBlastsNucleated Red Blood CellDifferential CommentAbs Neutrophil Count (Man)Abs Lymph Count (Man)Abs Monocyte Count (Man)Abs Eosinophil Count (Man)Abs Basophil Count (Man)Platelet EstimatePlatelet Morphol ogyHypochromasiaPoikilocytosisAnisocytosisMicrocytosisMacrocytosisTarget CellsBurr CellsOchsner Medical Center W Auto Differential panel - Blood 2021-09-25 [...] volume] (test code = 86.8 fL 83-100 46592-1) mean corpuscular hemoglobin (test 28.5 pg 26.8-33.4 [...] L leukocytes in Blood (test code = 16442-3) Immature granulocytes [#/volume] 0.0 K/uL 0.0-0.03 in Blood (test code = 25334-9) lymphocyte% (test code = 52.2 % 10.0-50.0 H lymphocyte%) mono % (test code = mono %) 8.4 % 3.9-13.4 eos % (test code = eos %) 2.7 % 0.0-6.4 Basophils/100 leukocytes in 0.6 % 0.2-1.2 Unspecified specimen (test code = 57761-4) Band form neutrophils [#/volume] 2.49 K/uL 1.78-5.38 in Blood (test code = 55581-3) Lymphocytes [#/volume] in 3.6 K/uL 1.32-3.57 H Unspecified specimen by Automated count (test code = 58675-1) mono # (test code = mono #) 0.58 K/uL 0.30-0.82 eos # (test code = eos #) 0.19 K/uL 0.04-0.54 basophil # (test code = basophil 0.04 K/uL 0.01-0.08 #) NRBC% (test code = NRBC%) 0 /100 WBC 0-0.2 NRBC# (test code = NRBC#) 0 K/uL [facility]PT/[id number] 10:10:00 Test Item Value Reference Range Interpretation Comments prothrombin time (test code = 9.9 seconds 10.3-12.3 L prothrombin time) INR in Blood by Coagulation assay <0.94 (test code = 43182-0) [facility]Com[facility] 2000 [facility] - Serum or Plasma [...] Serum or Plasma (test code = 6768-6) [facility] HospitalCreatine kinase [Enzymatic activity/volume] in Serum or [id number] 10:10:00 Test Item Value Reference Range Interpretation Comments creatine kinase (test code = creatine 243 U/L 20-200 H kinase) [facility] HospitalDifferential panel, method unspecified - [id number] 00:00:00NeutrophilsBandLymphocyteAtypical LymphMonocyteEosinophilBasophilMetamyelocyteMyelocyteAbs Neutrophil Count (Man)Abs Lymph Count (Man)Abs Monocyte Count (Man)Abs Eosinophil Count (Man)Abs Basophil Count (Man)Platelet EstimateHypochromasiaMaSouth [facility] Hospitalpartial thromboplastin [id number] 00:00:00 Test Item Value Reference Range Interpretation Comments INR in Blood by Coagulation 23.6 seconds 22.5-37.0 assay (test code = 57087-5) [facility] HospitalCreatine kinase.MB [Mass/volume] in Serum or Plasma 2021-09-25 00:00:00 Test Item Value Reference Range Interpretation Comments Creatine kinase.MB [Mass/volume] in 1.7 NG/mL 0.0-3.6 Serum or Plasma by Immunoassay (test code = 73008-3) [facility] Hospitalltrop [id number] 00:00:00 Test Item Value Reference Range Interpretation Comments Troponin T.cardiac [Mass/volume] in <0.01 0-0.011 Blood (test code = 35868-2) [facility]
[2023-05-18] MEDS ORDERED: ONDANSETRON 4 MG/2 ML VIAL ONE (10:51)
[2023-05-18] MEDS ORDERED: MORPHINE 4 MG/ML SYR ONE (10:51)
[2023-05-18 11:03] LABS: Specific Gravity 1.019 (1.005-1.030); Urine Bacteria None Seen /HPF (<20); Urine Bilirubin NEGATIVE (Negative); Urine Blood Negative (Negative); Urine Clarity Clear (Clear); Urine Color Yellow (Yellow); Urine Glucose NEGATIVE (Negative); Urine Mucus Slight /HPF (None Seen); Urine Protein TRACE (Negative); Urine RBC None Seen /HPF (None Seen); Urine Urobilinogen Normal (Normal); Urine pH 6.5 (5.0-7.0)
--- NOTE | 2023-05-18 11:18 | RAD REPORT ---
EXAM DESCRIPTION: Rayshawn Hairston And Lat (2 Views)05/18/2023 11:11 am CLINICAL HISTORY: Cough COMPARISON: January 2023 FINDINGS: The lungs appear clear of acute infiltrate. The heart is normal size Calcified lymph nodes are present IMPRESSION: No acute abnormalities displayed
[2023-05-18 11:37] LABS: Absolute Lymphocytes (CBC) 2.3 K/uL (0.7-4.9); Hematocrit 44.4 % (39.6-49.0); Lymphocytes % 21.3 % (15.3-44.8); MCV 88.5 fL (80-100); MPV 6.3 fL (7.6-11.3); Platelets 456 thou/uL (152-406); RBC Red Blood Cell Count 5.01 M/uL (4.33-5.43)
[2023-05-18 11:54] LABS: Bilirubin Total 0.2 mg/dL (0.2-1.0); Potassium 4.5 mEq/L (3.5-5.1); Protein, Total 9.1 g/dL (6.4-8.2)
--- NOTE | 2023-05-18 12:45 | RAD REPORT ---
EXAM DESCRIPTION: CT - Abdomen Pelvis W Contrast - 05/18/2023 12:29 pm CLINICAL HISTORY: ABD PAIN COMPARISON: Abdomen Pelvis W Contrast dated 02/11/2023; Abdomen Pelvis W Contrast dated 01/08/2023 ; Abdomen Pelvis W Contrast dated 07/01/2022; Abdomen Pelvis W Contrast dated 06/24/2022 TECHNIQUE: Thin cut axial CT imaging of the abdomen and pelvis was performed following intravenous a dministration of 100 mL Isovue 300. Multiplanar reformats were generated and reviewed. All CT scans are performed using dose optimization technique as appropriate and may include automated exposure control or mA/KV adjustment according to patient size. FINDINGS: No suspicious findings in the lung bases. The liver, spleen, adrenal glands, and pancreas show no suspicious findings. Gallbladder was surgical ly removed. Mild prominence of the common bile duct likely due to reservoir effect, stable. Symmetric renal function is seen with no hydronephrosis or suspicious renal mass. No dilated bowel loops or bowel wall thickening. Postsurgical changes of small bowel and large bowel anastomoses. No free air, free fluid or inflammatory stranding. No hernia, mass or bulky lymphadenopa thy. The urinary bladder is without significant finding. No suspicious bony findings. Grade 1 spondylolisthesis at L5-S1, stable. IMPRESSION: No acute intra-abdominal process. Stable findings, as above.
--- NOTE | 2023-05-18 13:32 | EDPHYS ---
Physician Documentation [facility] Name: Piter Iglesias Age: 57 yrs Sex: Male : 1965 Arrival Date: 05/18/2023 Time: 10:03 Bed 8 Private MD: ED Physician Kaveh Olguin HPI: 05/18 10:23 This 57 yrs old Black Male presents to ER via Ambulatory with complaints of Abdominal ms3 Cramping, Bloody Stools. 10:23 57-year-old male with past medical history of diabetes, hypertension, hyperlipidemia, ms3 asthma, anxiety presents for lower abdominal pain and bloody diarrhea that began Monday. Patient states pain is a 10/10. Patient endorses one bloody bowel movement this morning. Patient denies alleviating or inciting factors. Patient denies fevers, chills, nausea, vomiting. Patient states he had similar symptoms in 1999 and when he had an obstruction.. Historical: - Allergies: 10:13 Nuts; ll1 - PMHx: 10:13 diabetes mellitus; Hypertension; Hyperlipidemia; Asthma; Anxiety; spinal stenosis; ll1 - PSHx: 10:13 Cholecystectomy; intestinal Surgery; ll1 - Immunization history:: Adult Immunizations up to date. - Social history:: Smoking status: Patient denies any tobacco usage or history of. ROS: 10:23 Constitutional: Negative for fever, and chills. Neck: Negative for injury, pain, and ms3 swelling, Cardiovascular: Negative for chest pain, and palpitations. Respiratory: Negative for shortness of breath, cough, wheezing, and pleuritic chest pain. 10:23 Skin: Negative for injury, rash, and discoloration. 10:23 Abdomen/GI: Positive for abdominal pain, rectal bleeding. 10:23 All other systems are negative. Exam: 10:23 Constitutional: This is a well developed, well nourished patient who is awake, alert, ms3 and in no acute distress. Neck: Trachea midline, no cervical lymphadenopathy. Supple, full range of motion without nuchal rigidity, or vertebral point tenderness. No Meningismus. Chest/axilla: Normal chest wall appearance and motion. Nontender with no deformity. Cardiovascular: Regular rate and rhythm with a normal S1 and S2. No gallops, murmurs, or rubs. Normal PMI, no JVD. No pulse deficits. Respiratory: Lungs have equal breath sounds bilaterally, clear to auscultation and percussion. No rales, rhonchi or wheezes noted. No increased work of breathing, no retractions or nasal flaring. 10:23 Skin: Warm, dry with normal turgor. Normal color with no rashes, no lesions, and no evidence of cellulitis. MS/ Extremity: Pulses equal, no cyanosis. Neurovascular intact. Full, normal range of motion. 10:23 Abdomen/GI: Inspection: abdomen appears normal, scar(s), are noted in the umbilical area, suprapubic area and right upper quadrant, Bowel sounds: normal, Palpation: moderate abdominal tenderness, in the right lower quadrant. 13:43 : Rectal exam: is normal, no gross blood is appreciated, no hemorrhoids, no masses ms3 palpable, Rectal tone: normal, the nurse was present for the exam. Vital Signs: 10:17 BP 149 / 114; Pulse 80; Resp 18; Temp 97.3; Pulse Ox 98% on R/A; Weight 77.11 kg; ll1 Height 5 ft. 3 in. ; Pain 10/10; 12:47 BP 159 / 99; Pulse 76; Resp 18; Pulse Ox 98% on R/A; Pain 7/10; ld1 13:56 BP 135 / 89; Pulse 71; Resp 18; Pulse Ox 99% ; ld1 10:17 Body Mass Index 30.11 (77.11 kg, 160.02 cm) ll1 10:17 Pain Scale: Adult ll1 12:47 Pain Scale: Adult ld1 MDM: 10:12 Patient medically screened. rn 10:26 Differential diagnosis: appendicitis, bowel obstruction, non-specific abd pain. ms3 13:56 Data reviewed: vital signs, nurses notes, and as a result, I will discharge patient. ms3 13:57 Consideration of Admission/Observation Escalation of care including ms3 admission/observation considered. Patient with normal hemaglobin, no bowel movements in the ED, no gross blood on rectal exam, CT without acute abnormalities.. I considered the following discharge prescriptions or medication management in the emergency department Medications were administered in the Emergency Department. See MAR. Independent interpretation of the following test(s) in the Emergency Department CT Scan: My interpretation is CT images reviewed by me do not reveal bowel obstruction . Counseling: I had a detailed discussion with the patient and/or guardian regarding the historical points, exam findings, and any diagnostic results supporting the discharge/admit diagnosis, lab results, radiology results, the need for outpatient follow up, to return to the emergency department if symptoms worsen or persist or if there are any questions or concerns that arise at home. Special discussion: Based on the patient's Hx, exam, and Dx evaluation, there is no indication for emergent surgery or inpatient Tx. It is understood by the patient/guardian that if the Sx's persist or worsen they need to return immediately for re-evaluation. ED course: Discussed labs, CT findings, physical exam findings with patient. Patient to follow-up with primary care physician to 3 days. Patient stands agrees to plan. All questions were answered. Return precautions discussed include worsening symptoms, or any other concerns. On reevaluation patient is alert and oriented x4, no apparent distress, nontoxic-appearing, ambulatory in emergency room, speaking full sentences. 05/18 10:22 Order name: CBC with Diff; Complete Time: 11:42 ms3 05/18 10:22 Order name: CMP; Complete Time: 12:56 ms3 05/18 10:31 Order name: Urinalysis w/ reflexes; Complete Time: 11:16 ms3 05/18 10:54 Order name: Flu; Complete Time: 13:23 ms3 05/18 10:54 Order name: Chest Pa And Lat (2 Views) XRAY; Complete Time: 11:22 3 05/18 11:42 Order name: CT Abd/Pelvis - IV Contrast Only; Complete Time: 12:56 ms3 05/18 10:22 Order name: IV Saline Lock; Complete Time: 12:46 ms3 05/18 10:22 Order name: Labs collected and sent; Complete Time: 12:46 ms3 Administered Medications: 12:46 Drug: Ondansetron IVP 4 mg Route: IVP; Site: right upper arm; ld1 12:46 Drug: morphine IVP or IV 4 mg Route: IVP; Infused Over: 4 mins; Site: right upper arm; ld1 Disposition Summary: 05/18/23 13:31 Discharge Ordered Location: Home ms3 Condition: Stable ms3 Diagnosis - Lower abdominal pain, unspecified ms3 - Elevated blood-pressure reading, without diagnosis of hypertension ms3 Followup: ms3 - With: Devonte Perla MD - When: 1 - 2 days - Reason: Recheck today's complaints Discharge Instructions: - Discharge Summary Sheet ms3 - Abdominal Pain, Adult ms3 Forms: - Medication Reconciliation Form ms3 - Thank You Letter ms3 - Antibiotic Education ms3 - Prescription Opioid Use ms3 - Patient Portal Instructions ms3 - Leadership Thank You Letter ms3 Prescriptions: - dicyclomine 20 mg Oral Tablet - take 1 tablet by ORAL route 4 times per day; 15 tablet; Refills: 0, Product ms3 Selection Permitted Signatures: Dispatcher [employer] EDMS Felipe Estrella MD MD rn Lewis, Lynsay, RN RN ll1 Kaveh Olguin DO DO ms3 Domenica Olguin RN RN ld1 Corrections: (The following items were deleted from the chart) 13:09 10:23 TYPE AND SCREEN+[id number].LAB.BRZ ordered. EDMS EDMS
--- NOTE | 2023-05-18 13:32 | ER ---
Nurse's Notes [facility] Name: Piter Ig[facility] Age: 57 yrs Sex: Male : 1965 Arrival Date: 05/18/2023 Time: 10:03 Bed 8 Private MD: Diagnosis: Lower abdominal pain, unspecified;Elevated blood-pressure reading, without diagnosis of hypertension Presentation: 05/18 10:13 Risk Assessment: Do you want to hurt yourself or someone else? Patient reports no ll1 desire to harm self or others. 10:13 Method Of Arrival: Ambulatory ll1 10:17 Chief complaint: Patient states: R sided abd pain with bloody stools since Monday. ll1 Coronavirus screen: Vaccine status: Patient reports being unvaccinated. Client denies travel out of the [place] in the last 14 days. At this time, the client does not indicate any symptoms associated with coronavirus-19. Ebola Screen: Patient denies travel to an Ebola-affected area in the 21 days before illness onset. Initial Sepsis Screen: Does the patient meet any 2 criteria? No. Patient's initial sepsis screen is negative. Does the patient have a suspected source of infection? Yes: Acute abdominal pain. Onset of symptoms was May 14, 2023. 10:17 Acuity: AIHSA 2 ll1 Historical: - Allergies: 10:13 Nuts; ll1 - PMHx: 10:13 diabetes mellitus; Hypertension; Hyperlipidemia; Asthma; Anxiety; spinal stenosis; ll1 - PSHx: 10:13 Cholecystectomy; intestinal Surgery; ll1 - Immunization history:: Adult Immunizations up to date. - Social history:: Smoking status: Patient denies any tobacco usage or history of. Screenin:[address] [facility] ED Fall Risk Assessment (Adult) History of falling in the last 3 months, ld1 including since admission No falls in past 3 months (0 pts). Abuse screen: Denies threats or abuse. Denies injuries from another. Nutritional screening: No deficits noted. Tuberculosis screening: No symptoms or risk factors identified. Assessment: 12:47 General: Appears in no apparent distress. comfortable, Behavior is calm, cooperative, ld1 appropriate for age. Pain: Complains of pain in abdomen Pain does not radiate. Pain currently is 7 out of 10 on a pain scale. Quality of pain is described as aching, crampy, throbbing. Neuro: Level of Consciousness is awake, alert, obeys commands, Oriented to person, place, time, situation. Cardiovascular: Capillary refill < 3 seconds Patient's skin is warm and dry. Respiratory: Airway is patent Respiratory effort is even, unlabored. GI: Abdomen is flat, non-distended, Bowel sounds present X 4 quads. Abd is soft Abdomen is tender to palpation Reports lower abdominal pain, upper abdominal pain. : No signs and/or symptoms were reported regarding the genitourinary system. EENT: No signs and/or symptoms were reported regarding the EENT system. Derm: No signs and/or symptoms reported regarding the dermatologic system. Musculoskeletal: No signs and/or symptoms reported regarding the musculoskeletal system. Vital Signs: 10:17 BP 149 / 114; Pulse 80; Resp 18; Temp 97.3; Pulse Ox 98% on R/A; Weight 77.11 kg; ll1 Height 5 ft. 3 in. ; Pain 10/10; 12:47 BP 159 / 99; Pulse 76; Resp 18; Pulse Ox 98% on R/A; Pain 7/10; ld1 13:56 BP 135 / 89; Pulse 71; Resp 18; Pulse Ox 99% ; ld1 10:17 Body Mass Index 30.11 (77.11 kg, 160.02 cm) ll1 10:17 Pain Scale: Adult ll1 12:47 Pain Scale: Adult ld1 ED Course: 10:05 Patient arrived in ED. rg4 10:12 Felipe Estrella MD is Attending Physician. rn 10:13 Arm band placed on Patient placed in an exam room, on a stretcher. ll1 10:15 Attending Physician role handed off by Felipe Estrella MD ms3 10:15 Kaveh Olguin DO is Attending Physician. ms3 10:18 Triage completed. ll1 10:37 Domenica Olguin, YUSUF is Primary Nurse. ld1 10:51 Urinalysis w/ reflexes Sent. ld1 11:07 Missed attempt(s): 22 gauge in left forearm. bc6 11:13 Chest Pa And Lat (2 Views) XRAY In Process Unspecified. EDMS 11:29 Initial lab(s) drawn, by me, sent to lab. Missed attempt(s): 22 gauge in right ll1 antecubital area. Bleeding controlled, band aid applied, catheter tip intact. 12:31 CT Abd/Pelvis - IV Contrast Only In Process Unspecified. EDMS 12:46 Flu Sent. ld1 12:47 Patient has correct armband on for positive identification. Placed in gown. Bed in low ld1 position. Call light in reach. Side rails up X2. site monitor on. Pulse ox on. NIBP on. Door closed. Noise minimized. Warm blanket given. 12:47 No provider procedures requiring assistance completed. Inserted saline lock: 20 gauge ld1 in right upper arm, using aseptic technique. Blood collected. 13:31 Devonte Perla MD is Referral Physician. ms3 13:56 IV discontinued, intact, bleeding controlled, No redness/swelling at site. ld1 Administered Medications: 12:46 Drug: Ondansetron IVP 4 mg Route: IVP; Site: right upper arm; ld1 12:46 Drug: morphine IVP or IV 4 mg Route: IVP; Infused Over: 4 mins; Site: right upper arm; ld1 Medication: 12:47 VIS not applicable for this client. ld1 Outcome: 13:31 Discharge ordered by . ms3 13:56 Discharged to home ambulatory. ld1 13:56 Condition: stable 13:56 Discharge instructions given to patient, Instructed on discharge instructions, follow up and referral plans. medication usage, Demonstrated understanding of instructions, follow-up care, medications, Prescriptions given X 1. 13:57 Patient left the ED. ld1 Signatures: Dispatcher [employer] EDMS Felipe Estrella MD MD rn Garcia, Rubi rg4 Jackeline William RN RN 1 Kaveh Olguin DO DO ms3 Domenica Olguin RN RN ld1 Maggy Walton bc6 Corrections: (The following items were deleted from the chart) 13:09 12:46 TYPE AND SCREEN+BB.LAB.BRZ drawn and sent. ld1 EDMS
[2023-05-18 14:48] VITALS: TEMP 97.3
[2023-05-18 14:50] VITALS: BP 135/89; O2SAT 99
== END 2023-05-18 13:57 | disposition home or self-care (01) ==
LOC: ER 10:03
DX: R10.30 Lower abdominal pain, unspecified (principal); I10 Essential (primary) hypertension; E11.9 Type 2 diabetes mellitus without complications; Z91.018 Allergy to other foods
CPT/HCPCS: 85025; 81001; 36415; 80053; 87804 ×2; 74177; 71046; 96375; 96374; 99285; Q9967; J2405

== ENCOUNTER 2023-06-20 03:38 | Emergency (ER) | payer OTHER ==
--- OUTSIDE RECORDS SUMMARY | 2023-06-20 03:43 | XMS REPORT | Continuity of Care Document ---
:1965 Author Organization [facility] t Address [address] [place] [address] Care Team Providers Name Role Phone KARIE ANGEL Vázquez Primary Care Physician Unavailable KIERRA BAUTISTA Attending Clinician Unavailable Kierra Bautista MD Attending Clinician Leonid Attending Clinician Unavailable Halel Cruz Attending Clinician Unavailable ARIEL SALDIVAR Attending [...] Date Expiration Date [place] [employer] DUAL [id number] 2022 ACCESS OPEN PPO 00:00:00 MED[place]ID [place] [id number] 2022 00:00:00 [facility] [id number] 2021 [facility] 00:00:00 (MEDICARE REPLACEMENT/ADVANTA GE - HMO) [place] [facility] - [id number] [facility] [id number] (MEDICARE REPLACEMENT/ADVANTA GE - PPO) [place] [id number] (MEDICAID) [facility] [id number] 2021 (MEDICARE 00:00:00 REPLACEMENT/ADVANTA GE - HMO) [employer] (MEDICARE [id number] REPLACEMENT/ADVANTA GE - PPO) Problems Condition Condition [...] rs active active ity of problems problems [facility] Allergies, Adverse Reactions, Alerts Allergy Allergy Status Severity Reaction(s) Onset Inactive Treating Comm ents Source Name Type Date Date Clinician NO KNOWN Drug Active [facility] ALLERGIE Class ity of S [facility] Social History Social Habit Start Date Stop Date Quantity Comments Source Exposure to 2022-07-23 2022-08-02 Not sure [facility] SARS-CoV-2 (event) 00:00:00 02:07:00 Medica l Branch Sex Ass[birth year] At [birth year] [facility] of [place] 00:00:00 00:00:00 Medical Branch Smoking Status Start Date Stop Date Source Current Every Day Smoker [facility] Tobacco smoking consumption [facility] unknown Branch Medications Ordered Filled Start Stop Current Ordering Indication Dosage Frequency Signature Comments Components Source Medication Medication Date Date Medication? Clinician (SIG) Name Name iopamidol 2021-09- No [id number] 75mL 75 mL, Univers (ISOVUE 1-15 11-15 Intravenou ity o f 370-500 mL) 10:15: 10:15 s, ONCE, 1 [place] injection 00 :00 dose, On Medica l 75 mL e Branch 08/02/22 at 0415, Routine ondansetron 2021-09 Yes [id number] 4mg Take 1 Univers (ZOFRAN) 4 1-15 [...] pain for pain as needed for pain Vital Signs Vital Name Observation Time Observation Value Comments Source Heart rate 2022-08-02 11:30:00 93 /min General acute hospital Oxygen saturation in 2022-08-02 11:30:00 96 /min [facility] Arterial blood by [facility] Pulse oximetry Branch Systolic blood 2022-08-02 11:00:00 134 mm[Hg] [facility] Diastolic blood 2022-08-02 11:00:00 97 mm[Hg] [facility] Respiratory rate 2022-08-02 11:00:00 21 /min [facility] Body temperature 2022-08-02 08:11:00 36.56 Blanca [facility] Body height 2022-08-02 08:11:00 160 cm General acute hospital Body weight 2022-08-02 08:11:00 79.379 kg General acute hospital BMI 2022-08-02 08:11:00 31.00 kg/m2 General acute hospital BP Diastolic 2022-05-05 00:00:00 89 mm[Hg] [facility] Height 2022-05-05 00:00:00 68 [in_i] [facility] BMI (Body Mass 2022-05-05 00:00:00 27.5 kg/m2 [facility] Group BP Systolic 2022-05-05 00:00:00 132 mm[Hg] [facility] Body Weight 2022-05-05 00:00:00 2891.2 [oz_av] [facility] BP Diastolic 2022-04-27 00:00:00 96 mm[Hg] [facility] Height 2022-04-27 00:00:00 68 [in_i] [facility] BMI (Body Mass 2022-04-27 00:00:00 26.5 kg/m2 [facility] Medical Index) Group BP Systolic 2022-04-27 00:00:00 131 mm[Hg] [facility] Body Weight 2022-04-27 00:00:00 2792 [oz_av] [facility] BP Diastolic 2022-03-30 00:00:00 67 mm[Hg] [facility] Height 2022-03-30 00:00:00 68 [in_i] [facility] BMI (Body Mass 2022-03-30 00:00:00 26.5 kg/m2 [facility] Medical Index) Group BP Systolic 2022-03-30 00:00:00 106 mm[Hg] [facility] Body Weight 2022-03-30 00:00:00 2784 [oz_av] [facility] BP Diastolic 2022-02-28 00:00:00 93 mm[Hg] [facility] Height 2022-02-28 00:00:00 68 [in_i] [facility] BMI (Body Mass 2022-02-28 00:00:00 26.5 kg/m2 [facility] Medical Index) Group BP Systolic 2022-02-28 00:00:00 132 mm[Hg] [facility] Body Weight 2022-02-28 00:00:00 2784 [oz_av] [facility] BP Diastolic 2022-01-31 00:00:00 92 mm[Hg] [facility] Height 2022-01-31 00:00:00 68 [in_i] [facility] BMI (Body Mass 2022-01-31 00:00:00 26.8 kg/m2 [facility] Medical Index) Group BP Systolic 2022-01-31 00:00:00 128 mm[Hg] [facility] Body Weight 2022-01-31 00:00:00 2816 [oz_av] [facility] BP Diastolic 2022-01-03 00:00:00 87 mm[Hg] [facility] Height 2022-01-03 00:00:00 68 [in_i] [facility] BMI (Body Mass 2022-01-03 00:00:00 26.8 kg/m2 [facility] Medical Index) Group BP Systolic 2022-01-03 00:00:00 124 mm[Hg] [facility] Body Weight 2022-01-03 00:00:00 2816 [oz_av] [facility] BP Diastolic 2021-12-06 00:00:00 85 mm[Hg] [facility] Height 2021-12-06 00:00:00 68 [in_i] [facility] BMI (Body Mass 2021-12-06 00:00:00 27.4 kg/m2 [facility] Medical Index) Group BP Systolic 2021-12-06 00:00:00 131 mm[Hg] [facility] Body Weight 2021-12-06 00:00:00 2887 [oz_av] [facility] BP Diastolic 2021-11-18 00:00:00 85 mm[Hg] [facility] Height 2021-11-18 00:00:00 68 [in_i] [facility] BMI (Body Mass 2021-11-18 00:00:00 27.4 kg/m2 [facility] Medical Index) Group BP Systolic 2021-11-18 00:00:00 133 mm[Hg] [facility] Body Weight 2021-11-18 00:00:00 2880 [oz_av] [facility] BP Diastolic 2021-10-05 00:00:00 89 mm[Hg] [facility] Height 2021-10-05 00:00:00 68 [in_i] [facility] BMI (Body Mass 2021-10-05 00:00:00 27.7 kg/m2 [facility] Medical Index) Group BP Systolic 2021-10-05 00:00:00 124 mm[Hg] [facility] Body Weight 2021-10-05 00:00:00 2912 [oz_av] [facility] BP Diastolic 2021-08-24 00:00:00 78 mm[Hg] [facility] Height 2021-08-24 00:00:00 68 [in_i] [facility] BMI (Body Mass 2021-08-24 00:00:00 28.6 kg/m2 [facility] Medical Index) Group BP Systolic 2021-08-24 00:00:00 122 mm[Hg] [facility] Body Weight 2021-08-24 00:00:00 188 [lb_av] [facility] BP Diastolic 2021-08-05 00:00:00 84 mm[Hg] [facility] Height 2021-08-05 00:00:00 68 [in_i] [facility] BMI (Body Mass 2021-08-05 00:00:00 27.5 kg/m2 [facility] Medical Index) Group BP Systolic 2021-08-05 00:00:00 118 mm[Hg] [facility] Body Weight 2021-08-05 00:00:00 2896 [oz_av] [facility] Procedures Procedure Date / Time Performing Clinician Source Performed URINALYSIS 2022-08-02 10:17:00 Kierra Bautista [facility] [place] ABDOMEN PELVIS W 2022-08-02 09:15:15 Kierra Bautista [facility] CONTRAST [facility] LIPASE 2022-08-02 08:16:00 Kierra Bautista [facility] HEPATIC FUNCTION PANEL 2022-08-02 08:16:00 Kierra Bautista [facility] ([id number]) (ALB,T.PRO,BILI Medical Branch T,BU/BC,ALT,AST,ALK PHOS) BASIC METABOLIC PANEL (NA, 2022-08-02 08:16:00 Kierra Bautista [facility] K, CL, CO2, GLUCOSE, BUN, Medica l Branch CREATININE, CA) CBC WITH DIFF 2022-08-02 08:16:00 Kierra Bautista [facility] XR, tibia + fibula, 2 view 2022-04-27 00:00:00 [facility] XR, knee, 3 view 2022-04-27 00:00:00 [facility] XR, lumbosacral spine, 2 2022-04-27 00:00:00 [facility] 3 view Group XR, thoracic spine, 2 view 2022-04-27 00:00:00 [facility] XR, shoulder, 2 or more 2022-04-27 00:00:00 [facility] CT, abdomen + pelvis, w/o 2022-04-27 00:00:00 [facility] ECG WITH INTERPRETATION 12 2021-08-05 00:00:00 [facility] XR, chest, 2 view 2021-08-05 00:00:00 [facility] Cardiac Catheterization 2018-03-18 00:00:00 [facility] Partial Resection of Colon 1999-09-18 00:00:00 [facility] Cholecystectomy [facility] Plan of Care Planned Activity Planned Date Details Comments Source Diagnostic Test 2022-05-05 CMP, serum or [facility] 00:00:00 plasma [code = Group CMP, serum or plasma] Diagnostic Test 2022-05-05 urinalysis, [facility] 00:00:00 complete [code = Group urinalysis, complete] Diagnostic Test 2022-05-05 microalbumin/creat [facility] 00:00:00 inine, mass ratio, Group urine [code = microalbumin/creat inine, mass ratio, urine] Encounters Start End Encounter Admission Attending Care Care Encounter Source Date/Time Date/Time Type Type Clinicians Facility Department ID 2022-08-02 2022-08-02 [id number] [facility] 02:08:00 06:26:00 KIERRA ity [facility] 2022-08-02 2022-08-02 Emergency [facility] [id number] Univers 02:08:00 06:26:00 Kierra BAI [id number] i ty [facility] [id number] [facility] [id number] [place] [id number] Branch 2022-06-13 2022-06-13 Outpatient Koudela_A [facility] [id number] [facility] 00:00:00 00:00:00 0926 [facility] 2022-05-18 2022-05-18 Emergency ER Cruz, [facility] [id number] [facility] 16:09:00 18:58:00 Halle -[id number] [facility] 2022-05-05 2022-05-05 Outpatient EL YARIEL, [facility] [id number] [place] 10:53:00 10:53:00 ARIEL -[id number] [facility] 2022-05-05 2022-05-05 Ariel Sanchezudela_A [facility] [place] - [id number] 22 [facility] 00:00:00 00:00:00 Discovery Yariel 18 da PA-C: [address] [facility] [address], [place] [address] , Ph. 2022-04-27 2022-04-27 Outpatient UR YARIEL, [facility] [id number] [place] 11:14:00 11:14:00 ARIEL [id number] [facility] 2022-04-27 2022-04-27 Ariel Saldivar_A [facility] [place] - [id number] 22 [facility] 00:00:00 00:00:00 Discovery Yariel 809 da PA-C: [address] [facility] [address], [place] [address] , Ph. 2022-04-18 2022-04-18 Emergency ER Mina, [facility] [id number] [facility] 13:18:00 17:27:00 Parker -[id number] [facility] 2022-04-15 2022-04-15 Outpatient Danieludela_A MMG [facility] [id number] -2021 [facility] 00:00:00 00:00:00 0729 [facility] 2022-03-30 2022-03-30 Ariel Yariel_A [facility] [place] - [id number] 22 [facility] 00:00:00 00:00:00 Discovery Yariel 0713 da PA-C: [address] [facility] [address], [facility] [place] [address] , Ph. 2022-02-28 2022-02-28 Ari[place] Sanchezudela_[place] - [id number] 22 [place] 00:00:00 00:00:00 Discovery Yariel 0613 da PA-C: [address] [facility] [address], [facility], [place] [address] , Ph. 2022-02-25 2022-02-25 Emergency ER Iwona, [facility] [id number] [place] 13:30:00 19:22:00 Denise -[id number] [facility] 2022-02-05 2022-02-05 Outpatient Koudela_A [facility] [id number] -[id number] [place] 12:33:00 12:33:00 0521 [facility] 2022-01-31 2022-01-31 Outpatient AURELIO SALDIVAR [facility] [id number] [place] 11:31:00 11:31:00 ARIEL -[id number] [facility] 2022-01-31 2022-01-31 Ariel Sanchezudela_A [facility] [place] - [id number] 22 [facility] 00:00:00 00:00:00 Discovery Yariel 0516 da PA-C: [address] [facility] [address], [facility] [place] [address] , Ph. 2022-01-12 2022-01-12 Outpatient AURELIO Fernandez [facility] [id number] [place] 09:58:00 09:58:00 Shira -[id number] [facility] 2022-01-03 2022-01-03 Ariel Sanchezudela_A [facility] [place] - [id number] 22 [place] 00:00:00 00:00:00 Discovery Yariel 0418 da PA-C: [address] [facility] [address] [place] [address] , Ph. 2021-12-17 2021-12-17 Outpatient Koudela_A [facility] MMG [id number] -[id number] [place] 06:11:00 06:11:00 0401 [facility] 2021-12-06 2021-12-06 Ari[place] Koudela_[place] MM[place] - [id number] 22 [place] 00:00:00 00:00:00 Discovery Yariel 0321 da PA-C: [address] [facility] [address], [place] [address] , Ph. 2021-12-02 2021-12-02 Outpatient EL Simmons, [facility] [id number] [place] 10:10:00 10:10:00 Adarsh -[id number] [facility] 2021-11-18 2021-11-18 Outpatient EL YRAIEL, [facility] [id number] [place] 10:39:00 10:39:00 ARIEL -[id number] [facility] 2021-11-18 2021-11-18 [place] Sanchezudela_[place] - [id number] 22 [facility] 00:00:00 00:00:00 Discovery Yariel 0303 da PA-C: [address] [facility] [address] [place] [address] , Ph. 2021-11-17 2021-11-17 Outpatient EL Simmons, [facility] [id number] [place] 10:55:00 10:55:00 Adarsh -[id number] [facility] 2021-10-29 2021-10-29 Outpatient Koudela_A MMG [facility] [id number] -2021 [place] 04:41:00 04:41:00 0211 [facility] 2021-10-27 2021-10-27 Outpatient Koudela_A MMG [facility] [id number] -2021 [place] 02:05:00 02:05:00 0209 [facility] 2021-10-19 2021-10-19 Outpatient AURELIO Simmons, [facility] [id number] [facility] 09:53:00 09:53:00 Adarsh -[id number] da [facility] 2021-10-18 2021-10-18 Outpatient Koudela_A MMG [facility] [id number] -2021 [place] 11:04:00 11:04:00 0131 [facility] 2021-10-05 2021-10-05 Ari[place] K[place]ela_[place] - [id number] [place] 00:00:00 00:00:00 Discovery Thu SaldivarC: [facility] [address] [place] [address] , Ph. 2021-09-26 2021-10-01 Inpatient ER Jimenez, [facility] [id number] [place] 12:55:00 14:03:00 [facility] -[id number] [facility] 2021-09-25 2021-09-25 Emergency ER MONTANEZ, [facility] [id number] [place] 11:01:00 14:06:00 ANITA -[id number] da [facility] 2021-08-25 2021-08-25 Outpatient Koudela_A MMG [facility] [id number] -[id number] [place] 05:53:00 05:53:00 1208 [facility] 2021-08-24 2021-08-24 M[place] K[place]ela_[place] - [id number] 21 [place] 00:00:00 00:00:00 Bhargav Johnson MD: [facility] [address], [place] [address] , Ph. [phone] 2021-08-09 2021-08-09 Outpatient Koudela_A MMG [facility] [id number] -[id number] [place] 04:17:00 04:17:00 1122 Medical Group 2021-08-06 2021-08-06 Outpatient Koudela_A MMG [facility] [id number] -2020 [place] 10:50:00 10:50:00 1119 [facility] 2021-08-05 2021-08-05 Ari[place] Verala_[place] - [id number] 21 [place] 00:00:00 00:00:00 Discovery Yariel 1118 da PA-C: [address] [facility] [place] [address], [facility] [place] [address] , Ph. 2021-08-04 2021-08-04 Outpatient Koudela_A [facility] [id number] [place] 05:51:00 05:51:00 1117 Medical Group 2021-08-03 2021-08-03 Outpatient Zruiga_F [facility] [id number] [place] 01:34:00 01:34:00 1116 Medical Group 2021-05-29 2021-05-29 Emergency ER BA, JORGE A [facility] [id number] [place] 07:18:00 12:30:00 -[id number] [facility] 2021 2021 Emergency ER ROJAS, [facility] [id number] [place] 21:16:00 22:23:00 WASIM -[id number] [facility] 2021-04-05 2021-04-05 Outpatient Zruiga_F [facility] [id number] [place] 02:45:00 02:45:00 0719 Medical [facility] Results Test Description Test Time Test Comments Results Result Comments Source Urinalysis complete W Reflex Culture panel - Urine 2022-04-18 0 09:29:00 Test Item Value Reference Range Interpretation Comme nts Color of Urine by Auto (test code = 80634-5) yellow Appearance of Urine (test code = 5767-9) clear clear Glucose [Presence] in Urine by Automated test strip negative ne gative (test code = 48838-3) Bilirubin.total [Mass/volume] in Urine (test code = negative ne gative 1978-02) Ketones [Mass/volume] in Urine by Automated test strip trace negative (test code = 56588-8) Specific gravity of Urine by Automated test strip (test 1.027 1.003-1.030 code = 96935-7) blood urine (test code = blood urine) negative negative pH of Urine (test code = 2756-5) 6.000 5-9 protein urine (UA) (test code = protein urine (UA)) =1+ (50 ne gative H Urobilinogen [Presence] in Urine (test code = 27300-0) =2.0 0.2-1.0 H Nitrite [Presence] in Urine by Test strip (test code = negative negative 5802-4) Leukocyte esterase [Presence] in Urine by Automated negative ne gative test strip (test code = 65875-6) Erythrocytes [#/volume] in Urine by Automated count =1-5 0- 5 (test code = 798-9) Leukocytes [#/area] in Urine sediment by Automated =1-5 0-5 count (test code = 16964-3) Epithelial cells [Presence] in Urine sediment by Light <1 0-5 microscopy (test code = 91544-6) Bacteria identified in Urine by Culture (test code = none detected none detect 630-4) Casts [#/area] in Urine sediment by Automated count none detected n one detect (test code = 82433-3) urine culture added? (test code = urine culture added?) [facility] W Auto Differential panel - [id number] 09:29:00 Test Item Value Reference Range Interpretation Comments white blood count (test code = 6.2 K/uL 4.0-12.3 white blood count) red blood count (test code = red 4.90 M/uL 3.80-5.80 blood count) hemoglobin (test code = 14.1 g/dL 11.7-17.2 hemoglobin) hematocrit (test code = 43.3 % 35.0-51.0 hematocrit) MCV [Entitic volume] (test code = 88.4 fL 83.0-100.0 58548-8) mean corpuscular hemoglobin (test 28.8 pg 26.8-33.4 [...] 44.7-82.4 leukocytes in Blood (test code = 38427-6) Immature granulocytes [#/volume] 0.01 K/uL 0.00-0.03 in Blood (test code = 34658-9) lymphocyte% (test code = 32.5 % 10.0-50.0 lymphocyte%) mono % (test code = mono %) 11.7 % 3.9-13.4 eos % (test code = eos %) 2.1 % 0.0-6.4 basophil % (test code = basophil 0.6 % 0.2-1.2 %) Band form neutrophils [#/volume] 3.30 K/uL 1.78-5.38 in Blood (test code = 20142-7) Lymphocytes [#/volume] in Specimen 2.03 K/uL 1.32-3.57 by Automated count (test code = 20634-1) mono # (test code = mono #) 0.73 K/uL 0.30-0.82 eos # (test code = eos #) 0.13 K/uL 0.04-0.54 basophil # (test code = basophil 0.04 K/uL 0.01-0.08 #) NRBC% (test code = NRBC%) 0 /100 WBC 0-0.2 NRBC# (test code = NRBC#) 0 K/uL [facility], method unspecified - [id number] 09:29:00NeutrophilsBandLymphocyteAtypical LymphMonocyteEosinophilBasophilAbs Neutrophil Count (Man)Abs LymphCount (Man)Abs Monocyte Count (Man)Abs Eosinophil Count (Man)Abs Basophil Count (Man)Platelet EstimatePlatelet MorphologyHypochromasiaPoikilocytosisAnisocytosisStomatocyteMatOCH [facility] Medical CenterComprehensive metabolic 2000 panel - Serum or [id number] 09:29:00 Test Item Value Reference Range Interpretation [...] Serum or Plasma (test code = 6768-6) [facility] Center[facility] [Enzymatic activity/volume] in Serum or Plasma 2022-04-27 00:00:00 Test Item Value Reference Range Interpretation Comments Amylase [Enzymatic activity/volume] in 62 U/L 28-100 Serum or Plasma (test code = 1798-8) [facility] Center[facility] [Enzymatic activity/volume] in Serum or Plasma 2022-04-27 00:00:00 Test Item Value Reference Range Interpretation Comments lipase (test code = lipase) 41 U/L 13-60 [facility] Center[facility]inalysis complete panel - [id number] 12:30:00 Test Item Value Reference Range Interpretation Comments Color of Urine by Auto (test light yellow code = 23829-0) Appearance of Urine (test code clear clear = 5767-9) Glucose [Presence] in Urine by negative negative Automated test strip (test code = 85338-9) Bilirubin.total [Mass/volume] negative negative in Urine (test code = 1978-6) Ketones [Mass/volume] in Urine negative negative by Automated test strip (test code = 63077-4) Specific gravity of Urine by 1.029 1.003-1.030 Automated test strip (test code = 35893-1) blood urine (test code = blood negative negative urine) pH of Urine (test code = 7.000 5-9 2756-5) protein urine (UA) (test code = negative negative protein urine (UA)) Urobilinogen [Presence] in normal 0.2-1.0 Urine (test code = 08888-1) Nitrite [Presence] in Urine by negative negative Test strip (test code = 5802-4) Leukocyte esterase [Presence] negative negative in Urine by Automated test strip (test code = 82933-0) Erythrocytes [#/volume] in <1 0-5 Urine by Automated count (test code = 798-9) Leukocytes [#/area] in Urine <1 0-5 sediment by Automated count (test code = 55630-5) Epithelial cells [Presence] in <1 0-5 Urine sediment by Light microscopy (test code = 77536-5) Bacteria identified in Urine by none detected none detect Culture (test code = 630-4) Casts [#/area] in Urine none detected none detect sediment by Automated count (test code = 30472-5) urine culture added? (test code no = urine culture added?) [facility] Center[facility]inalysis complete panel - [id number] 12:30:00 Test Item Value Reference Range Interpretation Comments Color of Urine by Auto (test light yellow code = 13861-7) Appearance of Urine (test code clear clear = 5767-9) Glucose [Presence] in Urine by negative negative Automated test strip (test code = 33470-4) Bilirubin.total [Mass/volume] negative negative in Urine (test code = 1978-6) Ketones [Mass/volume] in Urine negative negative by Automated test strip (test code = 76642-3) Specific gravity of Urine by 1.029 1.003-1.030 Automated test strip (test code = 98327-7) blood urine (test code = blood negative negative urine) pH of Urine (test code = 7.000 5-9 2756-5) protein urine (UA) (test code = negative negative protein urine (UA)) Urobilinogen [Presence] in normal 0.2-1.0 Urine (test code = 07107-4) Nitrite [Presence] in Urine by negative negative Test strip (test code = 5802-4) Leukocyte esterase [Presence] negative negative in Urine by Automated test strip (test code = 10489-1) Erythrocytes [#/volume] in <1 0-5 Urine by Automated count (test code = 798-9) Leukocytes [#/area] in Urine <1 0-5 sediment by Automated count (test code = 97895-5) Epithelial cells [Presence] in <1 0-5 Urine sediment by Light microscopy (test code = 56811-2) Bacteria identified in Urine by none detected none detect Culture (test code = 630-4) Casts [#/area] in Urine none detected none detect sediment by Automated count (test code = 80109-6) urine culture added? (test code no = urine culture added?) [facility] [facility] - Blood 2022-04-18 11:39:00 Test Item Value Reference Range Interpretation Comments Rh [Type] in Blood (test code = 4+ 85336-4) ABO and Rh group panel - Blood A positive (test code = 03150-1) [facility] 2022-04-18 11:39:00 Test Item Value Reference Range Interpretation Comments Rh [Type] in Blood (test code = 4+ 40205-4) ABO and Rh group panel - Blood A positive (test code = 43680-3) [facility] panel - Blood by Automated [id number] 11:34:00 Test Item Value Reference Range Interpretation Comments white blood count (test code = 6.5 K/uL 4.0-12.3 white blood count) red blood count (test code = red 4.52 M/uL 3.80-5.80 blood count) hemoglobin (test code = hemoglobin) 13.5 g/dL 11.7-17.2 hematocrit (test code = hematocrit) 39.6 % 35.0-51.0 MCV [Entitic volume] (test code = 87.6 fL 83.0-100.0 64557-3) mean corpuscular hemoglobin (test 29.9 pg 26.8-33.4 [...] 8.0 fL 9.4-12.6 L mean platelet volume) [id number] 11:34:00 Test Item Value Reference Range Interpretation Comments prothrombin time (test code = 9.9 seconds 10.3-12.3 L prothrombin time) INR in Blood by Coagulation assay <0.94 (test code = 72247-9) [facility] Center[facility]in [id number] 11:34:00 Test Item Value Reference Range Interpretation Comments INR in Blood by Coagulation 24.5 seconds 22.5-37.0 assay (test code = 82003-5) [facility] CenterCom[facility] 2000 panel - Serum or [...] Serum or Plasma (test code = 6768-6) [facility] CenterCreatine kinase [Enzymatic activity/volume] in Serum or [id number] 11:34:00 Test Item Value Reference Range Interpretation Comments creatine kinase (test code = creatine 192 U/L 20-200 kinase) [facility] panel - Blood by Automated [id number] 11:34:00 Test Item Value Reference Range Interpretation Comments white blood count (test code = 6.5 K/uL 4.0-12.3 white blood count) red blood count (test code = red 4.52 M/uL 3.80-5.80 blood count) hemoglobin (test code = hemoglobin) 13.5 g/dL 11.7-17.2 hematocrit (test code = hematocrit) 39.6 % 35.0-51.0 MCV [Entitic volume] (test code = 87.6 fL 83.0-100.0 89430-1) mean corpuscular hemoglobin (test 29.9 pg 26.8-33.4 [...] 8.0 fL 9.4-12.6 L mean platelet volume) [facility]PT/[id number] 11:34:00 Test Item Value Reference Range Interpretation Comments prothrombin time (test code = 9.9 seconds 10.3-12.3 L prothrombin time) INR in Blood by Coagulation assay <0.94 (test code = 79425-3) [facility] Centerpartial [facility]in [id number] 11:34:00 Test Item Value Reference Range Interpretation Comments INR in Blood by Coagulation 24.5 seconds 22.5-37.0 assay (test code = 91395-0) [facility] CenterCom[facility] 2000 panel - Serum or [...] Serum or Plasma (test code = 6768-6) [facility] CenterCreatine kinase [Enzymatic activity/volume] in Serum or [id number] 11:34:00 Test Item Value Reference Range Interpretation Comments creatine kinase (test code = creatine 192 U/L 20-200 kinase) [facility] W Auto Differential panel - [id number] 09:45:00 Test Item Value Reference Range Interpretation Comments white blood count (test code = 5.6 K/uL 4.0-12.3 white blood count) red blood count (test code = red 4.27 M/uL 3.80-5.80 blood count) hemoglobin (test code = 12.6 g/dL 11.7-17.2 hemoglobin) hematocrit (test code = 38.2 % 35.0-51.0 hematocrit) MCV [Entitic volume] (test code = 89.5 fL 83.0-100.0 14408-1) mean corpuscular hemoglobin (test 29.5 pg 26.8-33.4 [...] 44.7-82.4 leukocytes in Blood (test code = 62970-2) Immature granulocytes [#/volume] 0.01 K/uL 0.00-0.03 in Blood (test code = 60448-0) lymphocyte% (test code = 36.8 % 10.0-50.0 lymphocyte%) mono % (test code = mono %) 11.7 % 3.9-13.4 eos % (test code = eos %) 3.6 % 0.0-6.4 Basophils/100 leukocytes in 0.9 % 0.2-1.2 Specimen (test code = 72577-1) Band form neutrophils [#/volume] 2.64 K/uL 1.78-5.38 in Blood (test code = 32946-0) Lymphocytes [#/volume] in Specimen 2.07 K/uL 1.32-3.57 by Automated count (test code = 80694-0) mono # (test code = mono #) 0.66 K/uL 0.30-0.82 eos # (test code = eos #) 0.20 K/uL 0.04-0.54 basophil # (test code = basophil 0.05 K/uL 0.01-0.08 #) NRBC% (test code = NRBC%) 0 /100 WBC 0-0.2 NRBC# (test code = NRBC#) 0 K/uL [facility] CenterCom[facility] 2000 panel - Serum or [...] Serum or Plasma (test code = 6768-6) [facility] CenterLipid 1996 panel - Serum or [id number] 09:45:00 Test Item Value Reference Range Interpretation Comments cholesterol level (test code = 113 mg/dL 150-200 L cholesterol level) triglycerides level (test code = 148 mg/dL <150 triglycerides level) HDL cholesterol (test code = HDL 36 mg/dL >55 L cholesterol) LDL cholesterol direct (test code = 61 mg/dL <100 LDL cholesterol direct) cholesterol risk ratio (test code = 3.138 cholesterol risk ratio) [facility] CenterUrinalysis complete W Reflex Culture panel - Urine 2022-01-31 09:45:00 Test Item Value Reference Range Interpretation Comments Color of Urine by Auto (test yellow code = 22860-8) Appearance of Urine (test code clear clear = 5767-9) Glucose [Presence] in Urine by negative negative Automated test strip (test code = 56964-4) Bilirubin.total [Mass/volume] negative negative in Urine (test code = 1978-6) Ketones [Mass/volume] in Urine negative negative by Automated test strip (test code = 94021-4) Specific gravity of Urine by 1.031 1.003-1.030 H Automated test strip (test code = 23029-8) blood urine (test code = blood negative negative urine) pH of Urine (test code = 6.000 5-9 2756-5) protein urine (UA) (test code = =1+ (30 negative H protein urine (UA)) Urobilinogen [Presence] in =2.0 0.2-1.0 H Urine (test code = 53894-6) Nitrite [Presence] in Urine by negative negative Test strip (test code = 5802-4) Leukocyte esterase [Presence] negative negative in Urine by Automated test strip (test code = 34306-0) Erythrocytes [#/volume] in =1-5 0-5 Urine by Automated count (test code = 798-9) Leukocytes [#/area] in Urine <1 0-5 sediment by Automated count (test code = 76047-3) Epithelial cells [Presence] in <1 0-5 Urine sediment by Light microscopy (test code = 49357-6) Bacteria identified in Urine by none detected none detect Culture (test code = 630-4) Casts [#/area] in Urine =2-5 none detect sediment by Automated count (test code = 95696-5) urine culture added? (test code no = urine culture added?) [facility] CenterDifferential panel, method unspecified - [id number] 00:00:00NeutrophilsBandLymphocyteAtypical LymphMonocyteEosinophilBasophilMetamyelocyteAbs Neutrophil Count (Man)Abs Lymph Count (Man)Abs Monocyte Count (Man)Abs Eosinophil Count (Man)Abs Basophil Count (Man)Platelet EstimatePlatelet MorphologyMacrocytosisOch [facility] Medical Center Hemoglobin A1c [Mass/volume] in [id number] 00:00:00 Test Item Value Reference Range Interpretation Comments Hemoglobin A1c [Mass/volume] in Blood 5.7 % 4.0-6.0 (test code = 35356-9) [facility] CenterCom[facility] 2000 panel - Serum or [...] Serum or Plasma (test code = 6768-6) [facility] CenterCobalamin (Vitamin B12) [Mass/volume] in Serum or Plasma 2021-11-18 00:00:00 Test Item Value Reference Range Interpretation Comments vitamin B12, serum (test code = vitamin 330 B12, serum) [facility] W Auto Differential panel - [id number] 03:50:00 Test Item Value Reference Range Interpretation Comments white blood count (test code = 10.6 K/uL 4.0-12.3 white blood count) red blood count (test code = red 4.27 M/uL 3.80-5.80 blood count) hemoglobin (test code = 12.1 g/dL 11.7-17.2 hemoglobin) hematocrit (test code = 36.6 % 35.0-51.0 hematocrit) MCV [Entitic volume] (test code = 85.7 fL 83.0-100.0 93967-7) mean corpuscular hemoglobin (test 28.3 pg 26.8-33.4 [...] 44.7-82.4 leukocytes in Blood (test code = 09454-2) Immature granulocytes [#/volume] 0.10 K/uL 0.00-0.03 H in Blood (test code = 97976-2) lymphocyte% (test code = 19.0 % 10.0-50.0 lymphocyte%) mono % (test code = mono %) 7.1 % 3.9-13.4 eos % (test code = eos %) 0 % 0.0-6.4 Basophils/100 leukocytes in 0.1 % 0.2-1.2 L Unspecified specimen (test code = 39899-2) Band form neutrophils [#/volume] 7.75 K/uL 1.78-5.38 H in Blood (test code = 07116-2) Lymphocytes [#/volume] in 2.02 K/uL 1.32-3.57 Unspecified specimen by Automated count (test code = 64427-5) mono # (test code = mono #) 0.75 K/uL 0.30-0.82 eos # (test code = eos #) 0.00 K/uL 0.04-0.54 L basophil # (test code = basophil 0.01 K/uL 0.01-0.08 #) NRBC% (test code = NRBC%) 0 /100 WBC 0-0.2 NRBC# (test code = NRBC#) 0 K/uL [facility] CenterB[facility] 2000 [facility] - Serum or [id number] 03:50:00 Test Item Value Reference Range Interpretation [...] = 8.0 mg/dL 8.6-10.0 L calcium level) [facility] CenterDifferential panel, method unspecified - [id number] 00:00:00NeutrophilsBandLymphocyteAtypical LymphMonocyteEosinophilBasophilMetamyelocyteMyelocytePromyelocyteBlastsNucleated Red Blood CellPlasma CellDifferential CommentAbs Neutrophil Count (Man)Abs Lymph Count(Man)Abs Monocyte Count (Man)Abs Eosinophil Count (Man)Abs Basophil Count (Man)Platelet EstimatePlatelet MorphologyHypochromasiaPoikilocytosisAnisocytosisMicrocytosisMacrocytosisSchisto cytesTarget CellsStomatocyteToxic GranulationBurr CellsHypersegmented PolysSmudge CellsMatagorda [facility] W Auto Differential panel - Blood 2021-09-30 [...] volume] (test code = 89.2 fL 83.0-100.0 68791-6) mean corpuscular hemoglobin (test 28.8 pg 26.8-33.4 [...] H leukocytes in Blood (test code = 77319-0) Immature granulocytes [#/volume] 0.11 K/uL 0.00-0.03 H in Blood (test code = 29902-4) lymphocyte% (test code = 10.0 % 10.0-50.0 lymphocyte%) mono % (test code = mono %) 3.0 % 3.9-13.4 L eos % (test code = eos %) 0 % 0.0-6.4 Basophils/100 leukocytes in 0.0 % 0.2-1.2 L Unspecified specimen (test code = 89548-2) Band form neutrophils [#/volume] 8.69 K/uL 1.78-5.38 H in Blood (test code = 24640-7) Lymphocytes [#/volume] in 1.01 K/uL 1.32-3.57 L Unspecified specimen by Automated count (test code = 33422-4) mono # (test code = mono #) 0.30 K/uL 0.30-0.82 eos # (test code = eos #) 0.00 K/uL 0.04-0.54 L basophil # (test code = basophil 0.00 K/uL 0.01-0.08 L #) NRBC% (test code = NRBC%) 0 /100 WBC 0-0.2 NRBC# (test code = NRBC#) 0 K/uL [facility] metabolic 2000 panel - Serum or [id number] 03:28:00 Test Item Value Reference Range Interpretation [...] = 8.3 mg/dL 8.6-10.0 L calcium level) [facility] CenterDifferential panel, method unspecified - [id number] 00:00:00NeutrophilsBandLymphocyteAtypical LymphMonocyteEosinophilBasophilMetamyelocyteMyelocytePromyelocyteBlastsNucleated Red Blood CellPlasma CellDifferential CommentAbs Neutrophil Count (Man)Abs Lymph Count(Man)Abs Monocyte Count (Man)Abs Eosinophil Count (Man)Abs Basophil Count (Man)Platelet EstimatePlatelet MorphologyHypochromasiaPoikilocytosisAnisocytosisMicrocytosisMacrocytosisSchisto cytesTarget CellsStomatocyteToxic GranulationBurr CellsHypersegmented PolysSmudge CellsOch Regional Medical CenterClostridioides difficile toxin A+B [Presence] in [id number] 08:35:00 Test Item Value Reference Range Interpretation Comments results (test code = results) Clostridioides difficile 027 presumptive [id number] strain DNA negative [Presence] in Stool by PRANAV with probe detection (test code = 74537-5) [facility] CenterLeukocytes [Presence] in Stool by Light microscopy 2021-09-29 08:35:00ResultsOch Regional Medical CenterCBC W Auto Differential panel - [id number] 02:50:00 Test Item Value Reference Range Interpretation Comments white blood count (test code = 12.0 K/uL 4.0-12.3 white blood count) red blood count (test code = red 4.17 M/uL 3.80-5.80 blood count) hemoglobin (test code = 11.9 g/dL 11.7-17.2 hemoglobin) hematocrit (test code = 36.2 % 35.0-51.0 hematocrit) MCV [Entitic volume] (test code = 86.8 fL 83.0-100.0 65337-6) mean corpuscular hemoglobin (test 28.5 pg 26.8-33.4 [...] H leukocytes in Blood (test code = 26297-6) Immature granulocytes [#/volume] 0.09 K/uL 0.00-0.03 H in Blood (test code = 42045-6) lymphocyte% (test code = 7.4 % 10.0-50.0 L lymphocyte%) mono % (test code = mono %) 2.8 % 3.9-13.4 L eos % (test code = eos %) 0 % 0.0-6.4 Basophils/100 leukocytes in 0.0 % 0.2-1.2 L Unspecified specimen (test code = 18875-2) Band form neutrophils [#/volume] 10.72 K/uL 1.78-5.38 H in Blood (test code = 35301-8) Lymphocytes [#/volume] in 0.89 K/uL 1.32-3.57 L Unspecified specimen by Automated count (test code = 43265-5) mono # (test code = mono #) 0.34 K/uL 0.30-0.82 eos # (test code = eos #) 0.00 K/uL 0.04-0.54 L basophil # (test code = basophil 0.00 K/uL 0.01-0.08 L #) NRBC% (test code = NRBC%) 0 /100 WBC 0-0.2 NRBC# (test code = NRBC#) 0 K/uL [facility] metabolic 2000 panel - Serum or [id number] 02:50:00 Test Item Value Reference Range Interpretation [...] code = 8.6 mg/dL 8.6-10.0 calcium level) [facility] CenterDifferential panel, method unspecified - [id number] 00:00:00NeutrophilsBandLymphocyteAtypical LymphMonocyteEosinophilBasophilMetamyelocyteMyelocytePromyelocyteBlastsNucleated Red Blood CellDifferential CommentAbs Neutrophil Count (Man)Abs Lymph Count (Man)Abs Monocyte Count (Man)Abs Eosinophil Count (Man)Abs Basophil Count (Man)Platelet EstimatePlatelet Morphol ogyHypochromasiaPoikilocytosisAnisocytosisMicrocytosisMacrocytosisTarget CellsBurr CellsHypersegmented PolysOch Regional Medical CenterBasic metabolic 2000 panel - Serum or [id number] 03:05:00 Test Item Value Reference Range Interpretation [...] code = 9.0 mg/dL 8.6-10.0 calcium level) [facility] W Auto Differential panel - [id number] 03:05:00 Test Item Value Reference Range Interpretation Comments white blood count (test code = 14.1 K/uL 4.0-12.3 white blood count) red blood count (test code = red 4.35 M/uL 3.80-5.80 blood count) hemoglobin (test code = 12.5 g/dL 11.7-17.2 hemoglobin) hematocrit (test code = 37.8 % 35.0-51.0 hematocrit) MCV [Entitic volume] (test code = 86.9 fL 83.0-100.0 04461-8) mean corpuscular hemoglobin (test 28.7 pg 26.8-33.4 [...] H leukocytes in Blood (test code = 83041-2) Immature granulocytes [#/volume] 0.09 K/uL 0.00-0.03 H in Blood (test code = 45898-2) lymphocyte% (test code = 8.2 % 10.0-50.0 L lymphocyte%) mono % (test code = mono %) 2.8 % 3.9-13.4 L eos % (test code = eos %) 0 % 0.0-6.4 Basophils/100 leukocytes in 0.1 % 0.2-1.2 L Unspecified specimen (test code = 30152-1) Band form neutrophils [#/volume] 12.42 K/uL 1.78-5.38 H in Blood (test code = 54626-7) Lymphocytes [#/volume] in 1.15 K/uL 1.32-3.57 L Unspecified specimen by Automated count (test code = 96874-8) mono # (test code = mono #) 0.40 K/uL 0.30-0.82 eos # (test code = eos #) 0.00 K/uL 0.04-0.54 L basophil # (test code = basophil 0.01 K/uL 0.01-0.08 #) NRBC% (test code = NRBC%) 0 /100 WBC 0-0.2 NRBC# (test code = NRBC#) 0 K/uL [facility] CenterDifferential panel, method unspecified - [id number] 00:00:00NeutrophilsBandLymphocyteAtypical LymphMonocyteEosinophilBasophilMetamyelocyteMyelocytePromyelocyteBlastsNucleated Red Blood CellDifferential CommentAbs Neutrophil Count (Man)Abs Lymph Count (Man)Abs Monocyte Count (Man)Abs Eosinophil Count (Man)Abs Basophil Count (Man)Platelet EstimatePlatelet Morphol ogyHypochromasiaPoikilocytosisAnisocytosisMicrocytosisMacrocytosisTarget CellsBurr CellsFranklin County [facility] Hospital W Auto Differential panel - Blood [...] volume] (test code = 86.8 fL 83-100 72662-1) mean corpuscular hemoglobin (test 28.5 pg 26.8-33.4 [...] L leukocytes in Blood (test code = 70360-3) Immature granulocytes [#/volume] 0.0 K/uL 0.0-0.03 in Blood (test code = 29762-6) lymphocyte% (test code = 52.2 % 10.0-50.0 H lymphocyte%) mono % (test code = mono %) 8.4 % 3.9-13.4 eos % (test code = eos %) 2.7 % 0.0-6.4 Basophils/100 leukocytes in 0.6 % 0.2-1.2 Unspecified specimen (test code = 28061-1) Band form neutrophils [#/volume] 2.49 K/uL 1.78-5.38 in Blood (test code = 57201-8) Lymphocytes [#/volume] in 3.6 K/uL 1.32-3.57 H Unspecified specimen by Automated count (test code = 05871-3) mono # (test code = mono #) 0.58 K/uL 0.30-0.82 eos # (test code = eos #) 0.19 K/uL 0.04-0.54 basophil # (test code = basophil 0.04 K/uL 0.01-0.08 #) NRBC% (test code = NRBC%) 0 /100 WBC 0-0.2 NRBC# (test code = NRBC#) 0 K/uL [facility] CenterPT/[id number] 10:10:00 Test Item Value Reference Range Interpretation Comments prothrombin time (test code = 9.9 seconds 10.3-12.3 L prothrombin time) INR in Blood by Coagulation assay <0.94 (test code = 86715-9) [facility] CenterComprehensive metabolic 2000 panel - Serum or [...] Serum or Plasma (test code = 6768-6) [facility] CenterCreatine kinase [Enzymatic activity/volume] in Serum or [id number] 10:10:00 Test Item Value Reference Range Interpretation Comments creatine kinase (test code = creatine 243 U/L 20-200 H kinase) [facility] CenterDifferential panel, method unspecified - [id number] 00:00:00NeutrophilsBandLymphocyteAtypical LymphMonocyteEosinophilBasophilMetamyelocyteMyelocyteAbs Neutrophil Count (Man)Abs Lymph Count (Man)Abs Monocyte Count (Man)Abs Eosinophil Count (Man)Abs Basophil Count (Man)Platelet EstimateHypochromasiaMaPanola Medical Centerpartial thromboplastin [id number] 00:00:00 Test Item Value Reference Range Interpretation Comments INR in Blood by Coagulation 23.6 seconds 22.5-37.0 assay (test code = 24468-4) [facility] CenterCreatine kinase.MB [Mass/volume] in Serum or Plasma 2021-09-25 00:00:00 Test Item Value Reference Range Interpretation Comments Creatine kinase.MB [Mass/volume] in 1.7 NG/mL 0.0-3.6 Serum or Plasma by Immunoassay (test code = 37446-0) [facility] Centerltrop [id number] 00:00:00 Test Item Value Reference Range Interpretation Comments Troponin T.cardiac [Mass/volume] in <0.01 0-0.011 Blood (test code = 96683-7) [facility]
[2023-06-20 04:50] LABS: Absolute Lymphocytes (CBC) 2.2 K/uL (0.7-4.9); Hematocrit 29.9 % (39.6-49.0); Lymphocytes % 27.3 % (15.3-44.8); MPV 6.3 fL (7.6-11.3); Platelets 393 thou/uL (152-406); RBC Red Blood Cell Count 3.28 M/uL (4.33-5.43)
[2023-06-20 05:08] LABS: Potassium 3.4 mEq/L (3.5-5.1); Troponin High Sensitivity 6.4 pg/mL (<58.9)
--- NOTE | 2023-06-20 05:16 | ER ---
Nurse's Notes [facility] Name[facility] Piter Igles[facility] Age: 58 yrs Sex: Male : 1965 Arrival Date: 06/20/2023 Time: 03:38 Bed 14 Private MD: Diagnosis: Arm cramping bilaterally Presentation: 06/20 03:40 Chief complaint: Patient states: left side body cramps,onset 0230. Patient stated was pf1 seen here yesterday and was given potassium. 03:40 Coronavirus screen: Vaccine status: Patient reports receiving the 1st dose of the Covid pf1 vaccine. Client denies travel out of the [place] in the last 14 days. At this time, the client does not indicate any symptoms associated with coronavirus-19. Ebola Screen: Patient negative for fever greater than or equal to 101.5 degrees Fahrenheit, and additional compatible Ebola Virus Disease symptoms. Initial Sepsis Screen: Does the patient meet any 2 criteria? No. Patient's initial sepsis screen is negative. Does the patient have a suspected source of infection? No. Patient's initial sepsis screen is negative. Risk Assessment: Do you want to hurt yourself or someone else? Patient reports no desire to harm self or others. 03:40 Method Of Arrival: EMS: [facility] pf1 03:40 Acuity: AISHA 3 pf1 Historical: - Allergies: 03:55 Nuts; pf1 - PMHx: 03:55 Anxiety; Asthma; diabetes mellitus; Hyperlipidemia; Hypertension; spinal stenosis; pf1 Crohn's disease; elevated liver enzymes; elevated creatinine levels; ulcerative colitis; Depressive disorder; - PSHx: 03:55 Cholecystectomy; intestinal Surgery; pf1 - Immunization history:: Adult Immunizations up to date, Client reports receiving the 1st dose of the Covid vaccine, Last tetanus immunization: > 10 years ago Flu vaccine is up to date. - Social history:: Smoking status: Patient denies any tobacco usage or history of. Patient/guardian denies using alcohol, street drugs. Screenin:58 [facility] ED Fall Risk Assessment (Adult) History of falling in the last 3 months, pf1 including since admission No falls in past 3 months (0 pts) Confusion or Disorientation No (0 pts) Intoxicated or Sedated No (0 pts) Impaired Gait No (0 pts) Mobility Assist Device Used No (0 pt) Altered Elimination No (0 pt) Score/Fall Risk Level 0 - 2 = Low Risk Oriented to surroundings, Maintained a safe environment, Educated pt \T\ family on fall prevention, incl call for assistance when getting out of bed, Assessed \T\ reinforced patient's understanding of fall precautions, Provided non-skid footwear, Hourly rounding (assess needs \T\ fall precautionary measures) done, Used ambulatory aids as needed (educated on \T\ assisted with), Used gait belt as appropriate. Abuse screen: Denies threats or abuse. Nutritional screening: No deficits noted. Tuberculosis screening: No symptoms or risk factors identified. Assessment: 03:40 General: Appears in no apparent distress. uncomfortable, well groomed, well developed, pf1 Behavior is calm, cooperative, appropriate for age, quiet. 03:40 Pain: Complains of pain in left side body cramps,onset 0230 Pain currently is 10 out of pf1 10 on a pain scale. Neuro: No deficits noted. Level of Consciousness is awake, alert, obeys commands, Oriented to person, place, time, situation. Cardiovascular: No deficits noted. Capillary refill < 3 seconds Patient's skin is warm and dry. Respiratory: No deficits noted. Airway is patent Respiratory effort is even, unlabored, Respiratory pattern is regular, symmetrical. GI: No deficits noted. No signs and/or symptoms were reported involving the gastrointestinal system. : No deficits noted. No signs and/or symptoms were reported regarding the genitourinary system. EENT: No deficits noted. No signs and/or symptoms were reported regarding the EENT system. Derm: No deficits noted. No signs and/or symptoms reported regarding the dermatologic system. Musculoskeletal: Reports pain in left side body cramps since 0230. Pain is 10 out of 10 on a pain scale. 04:30 Reassessment: Patient appears in no apparent distress at this time. Patient and/or pf1 family updated on plan of care and expected duration. Pain level reassessed. Patient is alert, oriented x 3, equal unlabored respirations, skin warm/dry/pink. Patient states feeling better. Patient states symptoms have improved. Vital Signs: 03:40 BP 118 / 92; Pulse 81; Resp 16; Temp 98; Pulse Ox 99% on R/A; Weight 77.11 kg; Height 5 pf1 ft. 3 in. ; Pain 10/10; 04:30 BP 114 / 90; Pulse 86; Resp 16; Pulse Ox 98% on R/A; Pain 4/10; pf1 05:00 BP 117 / 89; Pulse 73; Resp 16; Pulse Ox 97% on R/A; Pain 4/10; pf1 03:40 Body Mass Index 30.11 (77.11 kg, 160.02 cm) pf1 03:40 Pain Scale: Adult pf1 04:30 Pain Scale: Adult pf1 05:00 Pain Scale: Adult pf1 ED Course: 03:40 Patient arrived in ED. as6 03:40 Patient has correct armband on for positive identification. Bed in low position. Call pf1 light in reach. 03:40 Arm band placed on right wrist. pf1 03:50 Hayley Motley MD is Attending Physician. sp3 03:54 Triage completed. pf1 04:32 Basic Metabolic Panel Sent. pf1 04:32 CBC with Diff Sent. pf1 04:32 Troponin HS Sent. pf1 04:32 CK Sent. pf1 05:20 Provided Education on: follow up. pf1 05:20 No provider procedures requiring assistance completed. pf1 05:20 Patient did not have IV access during this emergency room visit. pf1 Administered Medications: No medications were administered Medication: 05:20 VIS not applicable for this client. pf1 Outcome: 05:16 Discharge ordered by . sp3 05:20 Discharged to home ambulatory, pf1 05:20 Condition: improved pf1 05:20 Discharge instructions given to patient, Instructed on discharge instructions, follow up and referral plans. Demonstrated understanding of instructions, follow-up care, 05:41 Patient left the ED. pf1 Signatures: Hayley Motley MD MD sp3 Quincy Nayak RN RN as6 Sanjana Jefferson RN RN pf1
--- NOTE | 2023-06-20 05:16 | EDPHYS ---
Physician Documentation [facility] Name: Piter Iglesias Age: 58 yrs Sex: Male : 1965 Arrival Date: 06/20/2023 Time: 03:38 Bed 14 Private MD: ED Physician Hayley Motley HPI: 06/20 04:33 This 58 yrs old Black Male presents to ER via EMS with complaints of bilateral hand sp3 tingling now resolved. 04:33 58-year-old male with history of diabetes, hyperlipidemia, hypertension, Crohn's, sp3 asthma now presents to the ED with chief complaint bilateral hand tingling. Patient was seen earlier in the day on June [address] Olguin for similar complaints at which time he was found to have mild hypokalemia at 3.2. Remainder of his work-up including chest x-ray was negative. Presents again for similar symptoms via EMS. He denies any headache, neck pain, chest pain, back pain, shortness of breath, nausea, vomiting, diarrhea, excessive sweating/diaphoresis, syncope, near syncope, focal neurological deficit, or any other signs or symptoms on ROS at this time.. Historical: - Allergies: 03:55 Nuts; pf1 - PMHx: 03:55 Anxiety; Asthma; diabetes mellitus; Hyperlipidemia; Hypertension; spinal stenosis; pf1 Crohn's disease; elevated liver enzymes; elevated creatinine levels; ulcerative colitis; Depressive disorder; - PSHx: 03:55 Cholecystectomy; intestinal Surgery; pf1 - Immunization history:: Adult Immunizations up to date, Client reports receiving the 1st dose of the Covid vaccine, Last tetanus immunization: > 10 years ago Flu vaccine is up to date. - Social history:: Smoking status: Patient denies any tobacco usage or history of. Patient/guardian denies using alcohol, street drugs. ROS: 04:35 Constitutional: Negative for fever, chills, and weight loss, Eyes: Negative for injury, sp3 pain, redness, and discharge, ENT: Negative for injury, pain, and discharge, Neck: Negative for injury, pain, and swelling, Cardiovascular: Negative for chest pain, palpitations, and edema, Respiratory: Negative for shortness of breath, cough, wheezing, and pleuritic chest pain, Abdomen/GI: Negative for abdominal pain, nausea, vomiting, diarrhea, and constipation, Back: Negative for injury and pain, Skin: Negative for injury, rash, and discoloration, Neuro: Negative for headache, weakness, numbness, tingling, and seizure, Psych: Negative for depression, anxiety, suicide ideation, homicidal ideation, and hallucinations, Allergy/Immunology: Negative for hives, rash, and allergies, Endocrine: Negative for neck swelling, polydipsia, polyuria, polyphagia, and marked weight changes, Hematologic/Lymphatic: Negative for swollen nodes, abnormal bleeding, and unusual bruising, 04:35 All other systems are negative, Exam: 04:35 Constitutional: This is a well developed, well nourished patient who is awake, alert, sp3 and in no acute distress. Head/Face: Normocephalic, atraumatic. Eyes: Pupils equal round and reactive to light, extra-ocular motions intact. Lids and lashes normal. Conjunctiva and sclera are non-icteric and not injected. Cornea within normal limits. Periorbital areas with no swelling, redness, or edema. ENT: Nares patent. No nasal discharge, no septal abnormalities noted. External auditory canals are clear. Oropharynx with no redness, swelling, or masses, exudates, or evidence of obstruction, uvula midline. Mucous membranes moist. Neck: Trachea midline, no thyromegaly or masses palpated, and no cervical lymphadenopathy. Supple, full range of motion without nuchal rigidity, or vertebral point tenderness. No Meningismus. Chest/axilla: Normal chest wall appearance and motion. Nontender with no deformity. No lesions are appreciated. Cardiovascular: Regular rate and rhythm with a normal S1 and S2. No gallops, murmurs, or rubs. Normal PMI, no JVD. No pulse deficits. Respiratory: Lungs have equal breath sounds bilaterally, clear to auscultation and percussion. No rales, rhonchi or wheezes noted. No increased work of breathing, no retractions or nasal flaring. Abdomen/GI: Soft, non-tender, with normal bowel sounds. No distension or tympany. No guarding or rebound. No evidence of tenderness throughout. Back: No spinal tenderness. No costovertebral tenderness. Full range of motion. Skin: Warm, dry with normal turgor. Normal color with no rashes, no lesions, and no evidence of cellulitis. MS/ Extremity: Pulses equal, no cyanosis. Neurovascular intact. Full, normal range of motion. Neuro: Awake and alert, GCS 15, oriented to person, place, time, and situation. Cranial nerves II-XII grossly intact. Motor strength 5/5 in all extremities. Sensory grossly intact. Cerebellar exam normal. Normal gait. Psych: Awake, alert, with orientation to person, place and time. Behavior, mood, and affect are within normal limits. 04:35 ECG was reviewed by the Attending Physician. EKG demonstrates normal sinus rhythm at 72 bpm with normal intervals, normal QRS, normal axis, nonspecific diffuse ST/T changes without evidence of acute ischemia. Vital Signs: 03:40 BP 118 / 92; Pulse 81; Resp 16; Temp 98; Pulse Ox 99% on R/A; Weight 77.11 kg; Height 5 pf1 ft. 3 in. ; Pain 10/10; 04:30 BP 114 / 90; Pulse 86; Resp 16; Pulse Ox 98% on R/A; Pain 4/10; pf1 05:00 BP 117 / 89; Pulse 73; Resp 16; Pulse Ox 97% on R/A; Pain 4/10; pf1 03:40 Body Mass Index 30.11 (77.11 kg, 160.02 cm) pf1 03:40 Pain Scale: Adult pf1 04:30 Pain Scale: Adult pf1 05:00 Pain Scale: Adult pf1 MDM: 03:50 Patient medically screened. sp3 04:36 Data reviewed: vital signs, nurses notes, old medical records, lab test result(s), EKG. sp3 ED course: 58-year-old male with PMH above now with vague symptoms of an tingling which is now resolved. Prior labs reviewed including troponin which was negative. We will reevaluate with lab test again and if negative including troponin we will safely discharge him home. EKG is not concerning and chest x-ray from yesterday is also been reviewed which demonstrates normal aortic knob and no concerning findings. Clinically I am not highly suspicious for acute coronary syndrome, infection/pneumonia, TIA/CVA spectrum, aortic pathology, or any other critical pathology at this time. Consider hypokalemia as a contributing factor which will be checked.. 05:15 ED course: Laboratory values reviewed and demonstrate no significant abnormalities. sp3 Potassium is 3.4. Patient is in no acute distress laughing and interacting with staff without difficulty. We will safely discharge him home at this time.. 06/20 03:51 Order name: Basic Metabolic Panel; Complete Time: 05:15 sp3 06/20 03:51 Order name: CBC with Diff; Complete Time: 04:58 sp3 06/20 03:51 Order name: Troponin HS; Complete Time: 05:15 sp3 06/20 03:51 Order name: CK; Complete Time: 05:15 sp3 06/20 03:51 Order name: EKG; Complete Time: 03:51 sp3 06/20 03:51 Order name: EKG - Nurse/Tech; Complete Time: 04:11 sp3 06/20 03:51 Order name: Labs collected and sent; Complete Time: 04:31 sp3 Administered Medications: No medications were administered Disposition Summary: 06/20/23 05:16 Discharge Ordered Notes: Location: Home sp3 Condition: Stable sp3 Diagnosis - Arm cramping bilaterally sp3 Followup: sp3 - With: Private Physician - When: Upon discharge from the Emergency Department - Reason: Continuance of care Discharge Instructions: - Discharge Summary Sheet sp3 - Muscle Cramps and Spasms, [id number] sp3 Forms: - Medication Reconciliation Form sp3 - Thank You Letter sp3 - Antibiotic Education sp3 - Prescription Opioid Use sp3 - Patient Portal Instructions sp3 - Leadership Thank You Letter sp3 Signatures: Dispatcher [employer] EDMS Hayley Motley MD MD sp3 Sanjana Jefferson RN RN pf1 Corrections: (The following items were deleted from the chart) 04:37 04:36 ED course: 58-year-old male with PMH above now with vague symptoms of an tingling sp3 which is now resolved. Prior labs reviewed including troponin which was negative. We will reevaluate with lab test again and if negative including troponin we will safely discharge him home. EKG is not concerning and chest x-ray from yesterday is also been reviewed which demonstrates normal aortic knob and no concerning findings.. sp3
[2023-06-20 05:46] VITALS: TEMP 98
[2023-06-20 05:48] VITALS: BP 117/89; O2SAT 97
--- NOTE | 2023-06-20 12:50 | EKG ---
Test Date: 2023-06-20 Test Time: 04:10:41 Alumni Relations Manager: SHAWN MEASUREMENT RESULTS: Intervals: Rate: 72 IL: 156 QRSD: 66 QT: 376 QTc: 411 Warren: P: 55 IL: 156 QRS: 5 T: -19 INTERPRETIVE STATEMENTS: Normal sinus rhythm Normal ECG Compared to ECG 06/19/2023 14:14:08 No significant changes Electronically Signed On 06-20-23 12:48:10 CDT by Galindo Joy
== END 2023-06-20 05:41 | disposition home or self-care (01) ==
LOC: ER 03:38
DX: R25.2 Cramp and spasm (principal); I10 Essential (primary) hypertension; Z91.018 Allergy to other foods
CPT/HCPCS: 36415; 80048; 82550; 84484; 85025; 93005; 99283

== ENCOUNTER 2023-07-06 11:02 | Inpatient (IN) | payer OTHER ==
--- OUTSIDE RECORDS SUMMARY | 2023-07-06 11:06 | XMS REPORT | Continuity of Care Document ---
:1965 Author Organization [facility] t Address [address] [facility] Philippe. [address] [place] [address] Care Team Providers Name Role Phone ANGEL TIWARI Primary Care Physician Unavailable DEEJAY SIMMONS Attending Clinician Unavailable KIERRA BAUTISTA Attending Clinician Unavailable Kierra Bautista MD Attending Clinician Leonid Attending Clinician Unavailable Halle Cruz Attending Clinician Unavailable ARIEL SALDIVAR Attending Clinician Unavailable Parker Mina Attending Clinician Unavailable Denise Rider Attending Clinician Unavailable Shira Fernandez Attending Clinician Unavailable Jacy Jimenez Attending Clinician Unavailable ANITA MONTANEZ Attending Clinician Unavailable Dedrick_F Attending Clinician Unavailable JORGE A FRANCO Attending Clinician Unavailable TROY ROJAS Attending Clinician Unavailable KIERRA BAUTISTA Admitting Clinician Unavailable Leonid Admitting Clinician Unavailable Jacy Jimenez Admitting Clinician Unavailable Dedrick_F Admitting Clinician Unavailable Payers Payer Name Policy Type Policy Number Effective Date Expiration Date [place] [employer] [id number] 2022 ACCESS OPEN PPO 00:00:00 [place]ID [place] [id number] 2022 00:00:00 [facility] - [id number] 2021 [facility] 00:00:00 (MEDICARE REPLACEMENT/ADVANTA GE - HMO) [place] [facility] - [id number] [facility] ([facility]) [facility] [id number] (MEDICARE REPLACEMENT/ADVANTA GE - PPO) [place] [id number] (MEDICAID) [facility] [id number] 2021 (MEDICARE 00:00:00 REPLACEMENT/ADVANTA GE - HMO) [employer] (MEDICARE [id number] REPLACEMENT/ADVANTA GE - PPO) Problems Condition Condition [...] rs active active ity of problems problems [facility] Allergies, Adverse Reactions, Alerts Allergy Allergy Status Severity Reaction(s) Onset Inactive Treating Comm ents Source Name Type Date Date Clinician NO KNOWN Drug Active [facility] ALLERGIE Class ity of S [facility] Social History Social Habit Start Date Stop Date Quantity Comments Source Exposure to 2022-07-23 2022-08-02 Not sure [facility] SARS-CoV-2 (event) 00:00:00 02:07:00 Medica l Branch Sex Ass[birth year] At [birth year] [facility] y of [place] 00:00:00 00:00:00 Medical Branch Smoking Status Start Date Stop Date Source Current Every Day Smoker [facility] Tobacco smoking consumption [facility] unknown Branch Medications Ordered Filled Start Stop Current Ordering Indication Dosage Frequency Signature Comments Components Source Medication Medication Date Date Medication? Clinician (SIG) Name Name iopamidol 2021-09- No [id number] 75mL 75 mL, Univers (ISOVUE 1-15 11-15 Intravenou ity o f 370-500 mL) 10:15: 10:15 s, ONCE, 1 [place] injection 00 :00 dose, On Medica l 75 mL e Branch 08/02/22 at 0415, Routine ondansetron 2021-09 Yes [id number] 4mg Take 1 Univers (ZOFRAN) 4 1-15 tablet by ity of mg tablet 00:00: mouth [place] 00 every 8 Medical (eight) Branch hours [...] Source Heart rate 2022-08-02 11:30:00 93 /min [facility] Oxygen saturation in 2022-08-02 11:30:00 96 /min [facility] Arterial blood by [facility] Pulse oximetry Branch Systolic blood 2022-08-02 11:00:00 134 mm[Hg] [facility] Diastolic blood 2022-08-02 11:00:00 97 mm[Hg] [facility] Respiratory rate 2022-08-02 11:00:00 21 /min [facility] Body temperature 2022-08-02 08:11:00 36.56 Blanca [facility] Body height 2022-08-02 08:11:00 160 cm [facility] Body weight 2022-08-02 08:11:00 79.379 kg [facility] BMI 2022-08-02 08:11:00 31.00 kg/m2 [facility] BP Diastolic 2022-05-05 00:00:00 89 mm[Hg] [facility] Height 2022-05-05 00:00:00 68 [in_i] [facility] BMI (Body Mass 2022-05-05 00:00:00 27.5 kg/m2 [facility] Group BP Systolic 2022-05-05 00:00:00 132 mm[Hg] [facility] Body Weight 2022-05-05 00:00:00 2891.2 [oz_av] [facility] BP Diastolic 2022-04-27 00:00:00 96 mm[Hg] [facility] Height 2022-04-27 00:00:00 68 [in_i] [facility] BMI (Body Mass 2022-04-27 00:00:00 26.5 kg/m2 [facility] Medical Index) Group BP Systolic 2022-04-27 00:00:00 131 mm[Hg] [facility] Body Weight 2022-04-27 00:00:00 2792 [oz_av] [facility] BP Diastolic 2022-03-30 00:00:00 67 mm[Hg] [facility] Height 2022-03-30 00:00:00 68 [in_i] [facility] BMI (Body Mass 2022-03-30 00:00:00 26.5 kg/m2 [facility] Medical Index) Group BP Systolic 2022-03-30 00:00:00 106 mm[Hg] [facility] Body Weight 2022-03-30 00:00:00 2784 [oz_av] [facility] BP Diastolic 2022-02-28 00:00:00 93 mm[Hg] [facility] Height 2022-02-28 00:00:00 68 [in_i] [facility] BMI (Body Mass 2022-02-28 00:00:00 26.5 kg/m2 [facility] Medical Index) Group BP Systolic 2022-02-28 00:00:00 132 mm[Hg] [facility] Body Weight 2022-02-28 00:00:00 2784 [oz_av] [facility] BP Diastolic 2022-01-31 00:00:00 92 mm[Hg] [facility] Height 2022-01-31 00:00:00 68 [in_i] [facility] BMI (Body Mass 2022-01-31 00:00:00 26.8 kg/m2 [facility] Medical Index) Group BP Systolic 2022-01-31 00:00:00 128 mm[Hg] [facility] Body Weight 2022-01-31 00:00:00 2816 [oz_av] [facility] BP Diastolic 2022-01-03 00:00:00 87 mm[Hg] [facility] Height 2022-01-03 00:00:00 68 [in_i] [facility] BMI (Body Mass 2022-01-03 00:00:00 26.8 kg/m2 [facility] Medical Index) Group BP Systolic 2022-01-03 00:00:00 124 mm[Hg] [facility] Body Weight 2022-01-03 00:00:00 2816 [oz_av] [facility] BP Diastolic 2021-12-06 00:00:00 85 mm[Hg] [facility] Height 2021-12-06 00:00:00 68 [in_i] [facility] BMI (Body Mass 2021-12-06 00:00:00 27.4 kg/m2 [facility] Medical Index) Group BP Systolic 2021-12-06 00:00:00 131 mm[Hg] [facility] Body Weight 2021-12-06 00:00:00 2887 [oz_av] [facility] BP Diastolic 2021-11-18 00:00:00 85 mm[Hg] [facility] Height 2021-11-18 00:00:00 68 [in_i] [facility] BMI (Body Mass 2021-11-18 00:00:00 27.4 kg/m2 [facility] Medical Index) Group BP Systolic 2021-11-18 00:00:00 133 mm[Hg] [facility] Body Weight 2021-11-18 00:00:00 2880 [oz_av] [facility] BP Diastolic 2021-10-05 00:00:00 89 mm[Hg] [facility] Height 2021-10-05 00:00:00 68 [in_i] [facility] BMI (Body Mass 2021-10-05 00:00:00 27.7 kg/m2 [facility] Medical Index) Group BP Systolic 2021-10-05 00:00:00 124 mm[Hg] [facility] Body Weight 2021-10-05 00:00:00 2912 [oz_av] [facility] BP Diastolic 2021-08-24 00:00:00 78 mm[Hg] [facility] Height 2021-08-24 00:00:00 68 [in_i] [facility] BMI (Body Mass 2021-08-24 00:00:00 28.6 kg/m2 [facility] Medical Index) Group BP Systolic 2021-08-24 00:00:00 122 mm[Hg] [facility] Body Weight 2021-08-24 00:00:00 188 [lb_av] [facility] BP Diastolic 2021-08-05 00:00:00 84 mm[Hg] [facility] Height 2021-08-05 00:00:00 68 [in_i] [facility] BMI (Body Mass 2021-08-05 00:00:00 27.5 kg/m2 [facility] Medical Index) Group BP Systolic 2021-08-05 00:00:00 118 mm[Hg] [facility] Body Weight 2021-08-05 00:00:00 2896 [oz_av] [facility] Procedures Procedure Date / Time Performing Clinician Source Performed URINALYSIS 2022-08-02 10:17:00 Kierra Bautista [facility] CT ABDOMEN PELVIS W 2022-08-02 09:15:15 Kierra Bautista [facility] CONTRAST [facility] Branch LIPASE 2022-08-02 08:16:00 Kierra Bautista [facility] HEPATIC FUNCTION PANEL 2022-08-02 08:16:00 Kierra Bautista [facility] ([id number]) (ALB,T.PRO,BILI Medical Branch T,BU/BC,ALT,AST,ALK PHOS) BASIC METABOLIC PANEL (NA, 2022-08-02 08:16:00 Kierra Bautista [facility] K, CL, CO2, GLUCOSE, BUN, Medica l Branch CREATININE, CA) CBC WITH DIFF 2022-08-02 08:16:00 Kierra Bautista [facility] XR, tibia + fibula, 2 view 2022-04-27 00:00:00 [facility] XR, knee, 3 view 2022-04-27 00:00:00 [facility] XR, lumbosacral spine, 2 2022-04-27 00:00:00 [facility] 3 view Group XR, thoracic spine, 2 view 2022-04-27 00:00:00 M [facility] XR, shoulder, 2 or more 2022-04-27 00:00:00 [facility] CT, abdomen + pelvis, w/o 2022-04-27 00:00:00 [facility] ECG WITH INTERPRETATION 12 2021-08-05 00:00:00 [facility] XR, chest, 2 view 2021-08-05 00:00:00 [facility] Cardiac Catheterization 2018-03-18 00:00:00 [facility] Partial Resection of Colon 1999-09-18 00:00:00 [facility] Cholecystectomy [facility] Plan of Care Planned Activity Planned Date Details Comments Source Diagnostic Test 2022-05-05 CMP, serum or [facility] 00:00:00 plasma [code = Group CMP, serum or plasma] Diagnostic Test 2022-05-05 urinalysis, [facility] 00:00:00 complete [code = Group urinalysis, complete] Diagnostic Test 2022-05-05 microalbumin/creat [facility] Pending 00:00:00 inine, mass ratio, Group urine [code = microalbumin/creat inine, mass ratio, urine] Encounters Start End Encounter Admission Attending Care Care Encounter Source Date/Time Date/Time Type Type Clinicians Facility Department ID 2023-06-28 Inpatient SIMMONS, [facility] [id number] [facility] 10:30:00 [facility] -[id number] [facility] 2022-08-02 2022-08-02 Emergency X MICHELENEW [facility] ERT [id number] Univers 02:08:00 06:26:[address] [facility] 2022-08-02 2022-08-02 Emergency Mic[facility]NEW [facility] [id number] Univers 02:08:00 06:26:00 Kierra BAI [id number] i ty [facility] [id number] [facility] [id number] [facility] 084 Branch 2022-06-13 2022-06-13 Outpatient Koudela_A [facility] [id number] -[id number] [facility] 00:00:00 00:00:00 0926 [facility] 2022-05-18 2022-05-18 Emergency ER Cruz, [facility] [id number] [facility] 16:09:00 18:58:00 Halle [id number] [facility] 2022-05-05 2022-05-05 Outpatient EL YARIEL, [facility] [id number] [facility] 10:53:00 10:53:00 ARIEL -[id number] [facility] 2022-05-05 2022-05-05 Ariel Koudela_[place] - [id number] 22 [facility] 00:00:00 00:00:00 Discovery Yariel 817 da PA-C: [address] [facility] [address] [place] [address] , Ph. 2022-04-27 2022-04-27 Outpatient UR YARIEL, [facility] [id number] [facility] 11:14:00 11:14:00 ARIEL [id number] [facility] 2022-04-27 2022-04-27 Arielkashif Saldivar_[place] - [id number] 22 [facility] 00:00:00 00:00:00 Discovery Yariel 10 da PA-C: [address] [facility] [address], [place] [address] , Ph. 2022-04-18 2022-04-18 Emergency ER Mina, [facility] [id number] [facility] 13:18:00 17:27:00 Parker [id number] [facility] 2022-04-15 2022-04-15 Outpatient Koudela_A G [facility] [id number] -[id number] [facility] 00:00:00 00:00:00 0729 Medical Group 2022-03-30 2022-03-30 Ariel Koudela_[place] - [id number] 22 [facility] 00:00:00 00:00:00 Discovery Yariel 0713 da PA-C: [address] [facility] [address], [facility] [place] [address] , Ph. 2022-02-28 2022-02-28 Ariel Trevinoudela_[place] MM[place] - [id number] 22 [facility] 00:00:00 00:00:00 Discovery Yariel 0613 da PA-C: [address] [facility] [address], [place] [address] , Ph. 2022-02-25 2022-02-25 Emergency ER Iwona, [facility] [id number] [facility] 13:30:00 19:22:00 Denise -[id number] [facility] 2022-02-05 2022-02-05 Outpatient Koudela_A G [facility] [id number] -2021 [facility] 12:33:00 12:33:00 0521 [facility] 2022-01-31 2022-01-31 Outpatient AURELIO TREVINOSOLEMARU, [facility] [id number] [facility] 11:31:00 11:31:00 ARIEL -[id number] [facility] 2022-01-31 2022-01-31 Ari[place] Tre[place]oudela_[place] - [id number] 22 [facility] 00:00:00 00:00:00 Discovery Yariel 0516 da PA-C: [address] [facility] [address], [place] [address] , Ph. 2022-01-12 2022-01-12 Outpatient AURELIO Fernandez, [facility] [id number] [facility] 09:58:00 09:58:00 Shira -[id number] [facility] 2022-01-032022-01-03 Ariel Trevinoudela_[place] - [id number] 22 [facility] 00:00:00 00:00:00 Discovery Yariel 0418 da PA-C: [address] [facility] [address], [place] [address] , Ph. 2021-12-17 2021-12-17 Outpatient Koudela_A MM[facility] G [id number] -2021 [facility] 06:11:00 06:11:00 0401 da [facility] 2021-12-06 2021-12-06 Ari[place] Danieludela_[place] - [id number] 22 [facility] 00:00:00 00:00:00 Discovery Yariel 0321 da PA-C: [address] [facility] [address], [place] [address] , Ph. 2021-12-02 2021-12-02 Outpatient AURELIO Simmons, [facility] [id number] [facility] 10:10:00 10:10:00 Deejay -[id number] [facility] 2021-11-18 2021-11-18 Outpatient AURELIO SALDIVAR, [facility] [id number] [facility] 10:39:00 10:39:00 ARIEL -[id number] [facility] 2021-11-18 2021-11-18 [place] Verala_[place] - [id number] 22 [facility] 00:00:00 00:00:00 Discovery Yariel 0303 da PA-C: [address] [facility] [address], [place] [address] , Ph. 2021-11-17 2021-11-17 Outpatient AURELIO Simmons, [facility] [id number] [facility] 10:55:00 10:55:00 Deejay -[id number] da [facility] 2021-10-29 2021-10-29 Outpatient Danieludela_A [facility] G [id number] -2021 [facility] 04:41:00 04:41:00 0211 [facility] 2021-10-27 2021-10-27 Outpatient Koudela_A MMG MMG [id number] -2021 [facility] 02:05:00 02:05:00 0209 da [facility] 2021-10-19 2021-10-19 Outpatient AURELIO Simmons, [facility] [id number] [facility] 09:53:00 09:53:00 [facility] -[id number] [facility] 2021-10-18 2021-10-18 Outpatient Koudela_A MMG [place]G [id number] -2021 [facility] 11:04:00 11:04:00 0131 [facility] 2021-10-05 2021-10-05 Ari[place] Koudela_[place] - [id number] [facility] 00:00:00 00:00:00 Discovery Yariel 0118 rene CHEN: [address] [place] [address] - [address] [place] [address] , Ph. 2021-09-26 2021-10-01 Inpatient ER Jimenez, [facility] [id number] [facility] 12:55:00 14:03:00 Jacy -[id number] [facility] 2021-09-25 2021-09-25 Emergency ER MONTANEZ, [facility] [id number] [facility] 11:01:00 14:06:00 ANITA -[id number] [facility] 2021-08-25 2021-08-25 Outpatient Koudela_A [facility] G [id number] -2020 [facility] 05:53:00 05:53:00 1208 [facility] 2021-08-24 2021-08-24 Miah Koudela_[place] - [id number] 21 [facility] 00:00:00 00:00:00 Bhargav Johnson MD: Medical [facility] [address], [place] [address] , Ph. [phone] 2021-08-09 2021-08-09 Outpatient Koudela_A MMG [facility] [id number] -2020 [facility] 04:17:00 04:17:00 1122 [facility] 2021-08-06 2021-08-06 Outpatient Koudela_A MMG [facility] [id number] -2020 [facility] 10:50:00 10:50:00 1119 [facility] 2021-08-05 2021-08-05 Ari[place] Koudela_[place] - [id number] 21 [facility] 00:00:00 00:00:00 Discovery Yariel 1118 da PA-C: 600 [facility] [place] [address], [place] [address] , Ph. 2021-08-04 2021-08-04 Outpatient Koudela_A MMG [facility] [id number] -[id number] [facility] 05:51:00 05:51:00 1117 [facility] 2021-08-03 2021-08-03 Outpatient Zuniga_F MMG [facility] [id number] [facility] 01:34:00 01:34:00 1116 [facility] 2021-05-29 2021-05-29 Emergency ER BA, JORGE A [facility] [id number] [facility] 07:18:00 12:30:00 -[id number] [facility] 2021 2021 Emergency ER ROJAS, [facility] [id number] [facility] 21:16:00 22:23:00 WAS -[id number] [facility] 2021-04-05 2021-04-05 [facility] [id number] 2020 [facility] 02:45:00 02:45:00 0719 [facility] Results Test Description Test Time Test Comments Results Result Comments Source Urinalysis complete W Reflex Culture panel - Urine 2022-04-18 0 09:29:00 Test Item Value Reference Range Interpretation Comme nts Color of Urine by Auto (test code = 98361-5) yellow Appearance of Urine (test code = 5767-9) clear clear Glucose [Presence] in Urine by Automated test strip negative ne gative (test code = 45969-3) Bilirubin.total [Mass/volume] in Urine (test code = negative ne gative 1978-02) Ketones [Mass/volume] in Urine by Automated test strip trace negative (test code = 01504-4) Specific gravity of Urine by Automated test strip (test 1.027 1.003-1.030 code = 09056-6) blood urine (test code = blood urine) negative negative pH of Urine (test code = 2756-5) 6.000 5-9 protein urine (UA) (test code = protein urine (UA)) =1+ (50 ne gative H Urobilinogen [Presence] in Urine (test code = 83635-6) =2.0 0.2-1.0 H Nitrite [Presence] in Urine by Test strip (test code = negative negative 5802-4) Leukocyte esterase [Presence] in Urine by Automated negative ne gative test strip (test code = 86558-9) Erythrocytes [#/volume] in Urine by Automated count =1-5 0- 5 (test code = 798-9) Leukocytes [#/area] in Urine sediment by Automated =1-5 0-5 count (test code = 61668-9) Epithelial cells [Presence] in Urine sediment by Light <1 0-5 microscopy (test code = 91741-8) Bacteria identified in Urine by Culture (test code = none detected none detect 630-4) Casts [#/area] in Urine sediment by Automated count none detected n one detect (test code = 77685-2) urine culture added? (test code = urine culture added?) [facility] W Auto Differential panel - [id number] 09:29:00 Test Item Value Reference Range Interpretation Comments white blood count (test code = 6.2 K/uL 4.0-12.3 white blood count) red blood count (test code = red 4.90 M/uL 3.80-5.80 blood count) hemoglobin (test code = 14.1 g/dL 11.7-17.2 hemoglobin) hematocrit (test code = 43.3 % 35.0-51.0 hematocrit) MCV [Entitic volume] (test code = 88.4 fL 83.0-100.0 60940-9) mean corpuscular hemoglobin (test 28.8 pg 26.8-33.4 [...] 44.7-82.4 leukocytes in Blood (test code = 46629-1) Immature granulocytes [#/volume] 0.01 K/uL 0.00-0.03 in Blood (test code = 92303-5) lymphocyte% (test code = 32.5 % 10.0-50.0 lymphocyte%) mono % (test code = mono %) 11.7 % 3.9-13.4 eos % (test code = eos %) 2.1 % 0.0-6.4 basophil % (test code = basophil 0.6 % 0.2-1.2 %) Band form neutrophils [#/volume] 3.30 K/uL 1.78-5.38 in Blood (test code = 22539-5) Lymphocytes [#/volume] in Specimen 2.03 K/uL 1.32-3.57 by Automated count (test code = 11635-3) mono # (test code = mono #) 0.73 K/uL 0.30-0.82 eos # (test code = eos #) 0.13 K/uL 0.04-0.54 basophil # (test code = basophil 0.04 K/uL 0.01-0.08 #) NRBC% (test code = NRBC%) 0 /100 WBC 0-0.2 NRBC# (test code = NRBC#) 0 K/uL [facility] method unspecified - [id number] 09:29:00NeutrophilsBandLymphocyteAtypical LymphMonocyteEosinophilBasophilAbs Neutrophil Count (Man)Abs LymphCount (Man)Abs Monocyte Count (Man)Abs Eosinophil Count (Man)Abs Basophil Count (Man)Platelet EstimatePlatelet MorphologyHypochromasiaPoikilocytosisAnisocytosisStomatocytMississippi Baptist Medical CenterComprehensive metabolic 2000 panel - Serum or [id number] 09:29:00 Test Item Value Reference Range Interpretation [...] (test code = 6768-6) [facility] [Enzymatic activity/volume] in Serum or Plasma 2022-04-27 00:00:00 Test Item Value Reference Range Interpretation Comments Amylase [Enzymatic activity/volume] in 62 U/L 28-100 Serum or Plasma (test code = 1798-8) [facility] [Enzymatic activity/volume] in Serum or Plasma 2022-04-27 00:00:00 Test Item Value Reference Range Interpretation Comments lipase (test code = lipase) 41 U/L 13-60 [facility]port[facility] complete panel - [id number] 12:30:00 Test Item Value Reference Range Interpretation Comments Color of Urine by Auto (test light yellow code = 53058-4) Appearance of Urine (test code clear clear = 5767-9) Glucose [Presence] in Urine by negative negative Automated test strip (test code = 01446-3) Bilirubin.total [Mass/volume] negative negative in Urine (test code = 1978-6) Ketones [Mass/volume] in Urine negative negative by Automated test strip (test code = 10214-1) Specific gravity of Urine by 1.029 1.003-1.030 Automated test strip (test code = 20346-4) blood urine (test code = blood negative negative urine) pH of Urine (test code = 7.000 5-9 2756-5) protein urine (UA) (test code = negative negative protein urine (UA)) Urobilinogen [Presence] in normal 0.2-1.0 Urine (test code = 27063-7) Nitrite [Presence] in Urine by negative negative Test strip (test code = 5802-4) Leukocyte esterase [Presence] negative negative in Urine by Automated test strip (test code = 00667-5) Erythrocytes [#/volume] in <1 0-5 Urine by Automated count (test code = 798-9) Leukocytes [#/area] in Urine <1 0-5 sediment by Automated count (test code = 66118-2) Epithelial cells [Presence] in <1 0-5 Urine sediment by Light microscopy (test code = 14936-6) Bacteria identified in Urine by none detected none detect Culture (test code = 630-4) Casts [#/area] in Urine none detected none detect sediment by Automated count (test code = 78547-5) urine culture added? (test code no = urine culture added?) [facility] panel - [id number] 12:30:00 Test Item Value Reference Range Interpretation Comments Color of Urine by Auto (test light yellow code = 98033-8) Appearance of Urine (test code clear clear = 5767-9) Glucose [Presence] in Urine by negative negative Automated test strip (test code = 28242-4) Bilirubin.total [Mass/volume] negative negative in Urine (test code = 1978-6) Ketones [Mass/volume] in Urine negative negative by Automated test strip (test code = 60834-1) Specific gravity of Urine by 1.029 1.003-1.030 Automated test strip (test code = 81602-5) blood urine (test code = blood negative negative urine) pH of Urine (test code = 7.000 5-9 2756-5) protein urine (UA) (test code = negative negative protein urine (UA)) Urobilinogen [Presence] in normal 0.2-1.0 Urine (test code = 97511-9) Nitrite [Presence] in Urine by negative negative Test strip (test code = 5802-4) Leukocyte esterase [Presence] negative negative in Urine by Automated test strip (test code = 34119-8) Erythrocytes [#/volume] in <1 0-5 Urine by Automated count (test code = 798-9) Leukocytes [#/area] in Urine <1 0-5 sediment by Automated count (test code = 82141-5) Epithelial cells [Presence] in <1 0-5 Urine sediment by Light microscopy (test code = 06232-3) Bacteria identified in Urine by none detected none detect Culture (test code = 630-4) Casts [#/area] in Urine none detected none detect sediment by Automated count (test code = 31349-6) urine culture added? (test code no = urine culture added?) [facility] - Blood 2022-04-18 11:39:00 Test Item Value Reference Range Interpretation Comments Rh [Type] in Blood (test code = 4+ 72854-8) ABO and Rh group panel - Blood A positive (test code = 85941-8) [facility] Indirect [facility] - Blood 2022-04-18 11:39:00 Test Item Value Reference Range Interpretation Comments Rh [Type] in Blood (test code = 4+ 18695-9) ABO and Rh group panel - Blood A positive (test code = 59325-5) [facility] panel - Blood by Automated [id number] 11:34:00 Test Item Value Reference Range Interpretation Comments white blood count (test code = 6.5 K/uL 4.0-12.3 white blood count) red blood count (test code = red 4.52 M/uL 3.80-5.80 blood count) hemoglobin (test code = hemoglobin) 13.5 g/dL 11.7-17.2 hematocrit (test code = hematocrit) 39.6 % 35.0-51.0 MCV [Entitic volume] (test code = 87.6 fL 83.0-100.0 42089-1) mean corpuscular hemoglobin (test 29.9 pg 26.8-33.4 [...] L mean platelet volume) [facility]/[id number] 11:34:00 Test Item Value Reference Range Interpretation Comments prothrombin time (test code = 9.9 seconds 10.3-12.3 L prothrombin time) INR in Blood by Coagulation assay <0.94 (test code = 91621-4) [facility] [id number] 11:34:00 Test Item Value Reference Range Interpretation Comments INR in Blood by Coagulation 24.5 seconds 22.5-37.0 assay (test code = 49213-8) [facility]Com[facility] 2000 panel - Serum or Plasma [...] (test code = 6768-6) [facility]portCreatine kinase [Enzymatic activity/volume] in Serum or [id number] 11:34:00 Test Item Value Reference Range Interpretation Comments creatine kinase (test code = creatine 192 U/L 20-200 kinase) [facility] by Automated [id number] 11:34:00 Test Item Value Reference Range Interpretation Comments white blood count (test code = 6.5 K/uL 4.0-12.3 white blood count) red blood count (test code = red 4.52 M/uL 3.80-5.80 blood count) hemoglobin (test code = hemoglobin) 13.5 g/dL 11.7-17.2 hematocrit (test code = hematocrit) 39.6 % 35.0-51.0 MCV [Entitic volume] (test code = 87.6 fL 83.0-100.0 18799-8) mean corpuscular hemoglobin (test 29.9 pg 26.8-33.4 [...] L mean platelet volume) [facility]PT/[id number] 11:34:00 Test Item Value Reference Range Interpretation Comments prothrombin time (test code = 9.9 seconds 10.3-12.3 L prothrombin time) INR in Blood by Coagulation assay <0.94 (test code = 40674-1) [facility] [id number] 11:34:00 Test Item Value Reference Range Interpretation Comments INR in Blood by Coagulation 24.5 seconds 22.5-37.0 assay (test code = 75349-0) [facility] 2000 panel - Serum or Plasma [...] (test code = 6768-6) [facility]port[facility] kinase [Enzymatic activity/volume] in Serum or [id number] 11:34:00 Test Item Value Reference Range Interpretation Comments creatine kinase (test code = creatine 192 U/L 20-200 kinase) [facility] W Auto Differential panel - [id number] 09:45:00 Test Item Value Reference Range Interpretation Comments white blood count (test code = 5.6 K/uL 4.0-12.3 white blood count) red blood count (test code = red 4.27 M/uL 3.80-5.80 blood count) hemoglobin (test code = 12.6 g/dL 11.7-17.2 hemoglobin) hematocrit (test code = 38.2 % 35.0-51.0 hematocrit) MCV [Entitic volume] (test code = 89.5 fL 83.0-100.0 63197-1) mean corpuscular hemoglobin (test 29.5 pg 26.8-33.4 [...] 44.7-82.4 leukocytes in Blood (test code = 80028-9) Immature granulocytes [#/volume] 0.01 K/uL 0.00-0.03 in Blood (test code = 51811-1) lymphocyte% (test code = 36.8 % 10.0-50.0 lymphocyte%) mono % (test code = mono %) 11.7 % 3.9-13.4 eos % (test code = eos %) 3.6 % 0.0-6.4 Basophils/100 leukocytes in 0.9 % 0.2-1.2 Specimen (test code = 25309-5) Band form neutrophils [#/volume] 2.64 K/uL 1.78-5.38 in Blood (test code = 07264-1) Lymphocytes [#/volume] in Specimen 2.07 K/uL 1.32-3.57 by Automated count (test code = 02854-5) mono # (test code = mono #) 0.66 K/uL 0.30-0.82 eos # (test code = eos #) 0.20 K/uL 0.04-0.54 basophil # (test code = basophil 0.05 K/uL 0.01-0.08 #) NRBC% (test code = NRBC%) 0 /100 WBC 0-0.2 NRBC# (test code = NRBC#) 0 K/uL [facility] 2000 panel - Serum or Plasma [...] (test code = 6768-6) [facility]port[facility]id 1996 panel - Serum or [id number] 09:45:00 Test Item Value Reference Range Interpretation [...] 3.138 cholesterol risk ratio) [facility]port[facility]inal[facility] complete W Reflex Culture panel - Urine 2022-01-31 09:45:00 Test Item Value Reference Range Interpretation Comments Color of Urine by Auto (test yellow code = 95199-4) Appearance of Urine (test code clear clear = 5767-9) Glucose [Presence] in Urine by negative negative Automated test strip (test code = 55215-2) Bilirubin.total [Mass/volume] negative negative in Urine (test code = 1978-6) Ketones [Mass/volume] in Urine negative negative by Automated test strip (test code = 54061-5) Specific gravity of Urine by 1.031 1.003-1.030 H Automated test strip (test code = 39209-1) blood urine (test code = blood negative negative urine) pH of Urine (test code = 6.000 5-9 2756-5) protein urine (UA) (test code = =1+ (30 negative H protein urine (UA)) Urobilinogen [Presence] in =2.0 0.2-1.0 H Urine (test code = 88754-5) Nitrite [Presence] in Urine by negative negative Test strip (test code = 5802-4) Leukocyte esterase [Presence] negative negative in Urine by Automated test strip (test code = 51627-2) Erythrocytes [#/volume] in =1-5 0-5 Urine by Automated count (test code = 798-9) Leukocytes [#/area] in Urine <1 0-5 sediment by Automated count (test code = 65933-3) Epithelial cells [Presence] in <1 0-5 Urine sediment by Light microscopy (test code = 51057-4) Bacteria identified in Urine by none detected none detect Culture (test code = 630-4) Casts [#/area] in Urine =2-5 none detect sediment by Automated count (test code = 11437-6) urine culture added? (test code no = urine culture added?) [facility]portDifferent[facility] panel, method unspecified - [id number] 00:00:00NeutrophilsBandLymphocyteAtypical LymphMonocyteEosinophilBasophilMetamyelocyteAbs Neutrophil Count (Man)Abs Lymph Count (Man)Abs Monocyte Count (Man)Abs Eosinophil Count (Man)Abs Basophil Count (Man)Platelet EstimatePlatelet MorphologyMacrocytosisMem[facility] Hospital [facility]port Hemoglobin A1c [Mass/volume] in [id number] 00:00:00 Test Item Value Reference Range Interpretation Comments Hemoglobin A1c [Mass/volume] in Blood 5.7 % 4.0-6.0 (test code = 52228-0) [facility]Com[facility] metabolic 2000 panel - Serum or Plasma [...] (test code = 6768-6) [facility]portCobalamin (Vitamin B12) [Mass/volume] in Serum or Plasma 2021-11-18 00:00:00 Test Item Value Reference Range Interpretation Comments vitamin B12, serum (test code = vitamin 330 B12, serum) [facility] W Auto Differential panel - [id number] 03:50:00 Test Item Value Reference Range Interpretation Comments white blood count (test code = 10.6 K/uL 4.0-12.3 white blood count) red blood count (test code = red 4.27 M/uL 3.80-5.80 blood count) hemoglobin (test code = 12.1 g/dL 11.7-17.2 hemoglobin) hematocrit (test code = 36.6 % 35.0-51.0 hematocrit) MCV [Entitic volume] (test code = 85.7 fL 83.0-100.0 20972-9) mean corpuscular hemoglobin (test 28.3 pg 26.8-33.4 [...] 44.7-82.4 leukocytes in Blood (test code = 83583-5) Immature granulocytes [#/volume] 0.10 K/uL 0.00-0.03 H in Blood (test code = 09664-1) lymphocyte% (test code = 19.0 % 10.0-50.0 lymphocyte%) mono % (test code = mono %) 7.1 % 3.9-13.4 eos % (test code = eos %) 0 % 0.0-6.4 Basophils/100 leukocytes in 0.1 % 0.2-1.2 L Unspecified specimen (test code = 23857-8) Band form neutrophils [#/volume] 7.75 K/uL 1.78-5.38 H in Blood (test code = 34363-4) Lymphocytes [#/volume] in 2.02 K/uL 1.32-3.57 Unspecified specimen by Automated count (test code = 69194-1) mono # (test code = mono #) 0.75 K/uL 0.30-0.82 eos # (test code = eos #) 0.00 K/uL 0.04-0.54 L basophil # (test code = basophil 0.01 K/uL 0.01-0.08 #) NRBC% (test code = NRBC%) 0 /100 WBC 0-0.2 NRBC# (test code = NRBC#) 0 K/uL [facility] metabolic 2000 panel - Serum or [id number] 03:50:00 Test Item Value Reference Range Interpretation [...] 8.6-10.0 L calcium level) [facility]Different[facility] panel, method unspecified - [id number] 00:00:00NeutrophilsBandLymphocyteAtypical LymphMonocyteEosinophilBasophilMetamyelocyteMyelocytePromyelocyteBlastsNucleated Red Blood CellPlasma CellDifferential CommentAbs Neutrophil Count (Man)Abs Lymph Count(Man)Abs Monocyte Count (Man)Abs Eosinophil Count (Man)Abs Basophil Count (Man)Platelet EstimatePlatelet MorphologyHypochromasiaPoikilocytosisAnisocytosisMicrocytosisMacrocytosisSchisto cytesTarget CellsStomatocyteToxic GranulationBurr CellsHypersegmented PolysSmudge CellsH. C. [facility] W Auto Differential panel - [...] volume] (test code = 89.2 fL 83.0-100.0 29659-6) mean corpuscular hemoglobin (test 28.8 pg 26.8-33.4 [...] H leukocytes in Blood (test code = 38953-2) Immature granulocytes [#/volume] 0.11 K/uL 0.00-0.03 H in Blood (test code = 76379-1) lymphocyte% (test code = 10.0 % 10.0-50.0 lymphocyte%) mono % (test code = mono %) 3.0 % 3.9-13.4 L eos % (test code = eos %) 0 % 0.0-6.4 Basophils/100 leukocytes in 0.0 % 0.2-1.2 L Unspecified specimen (test code = 46694-2) Band form neutrophils [#/volume] 8.69 K/uL 1.78-5.38 H in Blood (test code = 63571-9) Lymphocytes [#/volume] in 1.01 K/uL 1.32-3.57 L Unspecified specimen by Automated count (test code = 48046-7) mono # (test code = mono #) 0.30 K/uL 0.30-0.82 eos # (test code = eos #) 0.00 K/uL 0.04-0.54 L basophil # (test code = basophil 0.00 K/uL 0.01-0.08 L #) NRBC% (test code = NRBC%) 0 /100 WBC 0-0.2 NRBC# (test code = NRBC#) 0 K/uL [facility] metabolic 2000 panel - Serum or [id number] 03:28:00 Test Item Value Reference Range Interpretation [...] 8.6-10.0 L calcium level) [facility]Different[facility] panel, method unspecified - [id number] 00:00:00NeutrophilsBandLymphocyteAtypical LymphMonocyteEosinophilBasophilMetamyelocyteMyelocytePromyelocyteBlastsNucleated Red Blood CellPlasma CellDifferential CommentAbs Neutrophil Count (Man)Abs Lymph Count(Man)Abs Monocyte Count (Man)Abs Eosinophil Count (Man)Abs Basophil Count (Man)Platelet EstimatePlatelet MorphologyHypochromasiaPoikilocytosisAnisocytosisMicrocytosisMacrocytosisSchisto cytesTarget CellsStomatocyteToxic GranulationBurr CellsHypersegmented PolysSmudge CellsMemorial Hospital At GulfportClostridioides difficile toxin A+B [Presence] in [id number] 08:35:00 Test Item Value Reference Range Interpretation Comments results (test code = results) Clostridioides difficile 027 presumptive [id number] strain DNA negative [Presence] in Stool by PRANAV with probe detection (test code = 69804-0) [facility]portLeukocytes [Presence] in Stool by Light microscopy 2021-09-29 08:35:00ResultsMemorial Hospital At GulfportCB W Auto Differential panel - [id number] 02:50:00 Test Item Value Reference Range Interpretation Comments white blood count (test code = 12.0 K/uL 4.0-12.3 white blood count) red blood count (test code = red 4.17 M/uL 3.80-5.80 blood count) hemoglobin (test code = 11.9 g/dL 11.7-17.2 hemoglobin) hematocrit (test code = 36.2 % 35.0-51.0 hematocrit) MCV [Entitic volume] (test code = 86.8 fL 83.0-100.0 42999-7) mean corpuscular hemoglobin (test 28.5 pg 26.8-33.4 [...] H leukocytes in Blood (test code = 89254-1) Immature granulocytes [#/volume] 0.09 K/uL 0.00-0.03 H in Blood (test code = 29063-5) lymphocyte% (test code = 7.4 % 10.0-50.0 L lymphocyte%) mono % (test code = mono %) 2.8 % 3.9-13.4 L eos % (test code = eos %) 0 % 0.0-6.4 Basophils/100 leukocytes in 0.0 % 0.2-1.2 L Unspecified specimen (test code = 66677-8) Band form neutrophils [#/volume] 10.72 K/uL 1.78-5.38 H in Blood (test code = 75862-9) Lymphocytes [#/volume] in 0.89 K/uL 1.32-3.57 L Unspecified specimen by Automated count (test code = 19590-2) mono # (test code = mono #) 0.34 K/uL 0.30-0.82 eos # (test code = eos #) 0.00 K/uL 0.04-0.54 L basophil # (test code = basophil 0.00 K/uL 0.01-0.08 L #) NRBC% (test code = NRBC%) 0 /100 WBC 0-0.2 NRBC# (test code = NRBC#) 0 K/uL [facility] metabolic 2000 panel - Serum or [id number] 02:50:00 Test Item Value Reference Range Interpretation [...] mg/dL 8.6-10.0 calcium level) [facility]Different[facility] panel, method unspecified - [id number] 00:00:00NeutrophilsBandLymphocyteAtypical LymphMonocyteEosinophilBasophilMetamyelocyteMyelocytePromyelocyteBlastsNucleated Red Blood CellDifferential CommentAbs Neutrophil Count (Man)Abs Lymph Count (Man)Abs Monocyte Count (Man)Abs Eosinophil Count (Man)Abs Basophil Count (Man)Platelet EstimatePlatelet Morphol ogyHypochromasiaPoikilocytosisAnisocytosisMicrocytosisMacrocytosisTarget CellsBurr CellsHypersegmented PolysMemorial Hospital At GulfportBac metabolic 2000 panel - Serum or [id number] 03:05:00 Test Item Value Reference Range Interpretation [...] code = 9.0 mg/dL 8.6-10.0 calcium level) [facility] W Auto Differential panel - [id number] 03:05:00 Test Item Value Reference Range Interpretation Comments white blood count (test code = 14.1 K/uL 4.0-12.3 white blood count) red blood count (test code = red 4.35 M/uL 3.80-5.80 blood count) hemoglobin (test code = 12.5 g/dL 11.7-17.2 hemoglobin) hematocrit (test code = 37.8 % 35.0-51.0 hematocrit) MCV [Entitic volume] (test code = 86.9 fL 83.0-100.0 86397-8) mean corpuscular hemoglobin (test 28.7 pg 26.8-33.4 [...] H leukocytes in Blood (test code = 97585-6) Immature granulocytes [#/volume] 0.09 K/uL 0.00-0.03 H in Blood (test code = 32285-1) lymphocyte% (test code = 8.2 % 10.0-50.0 L lymphocyte%) mono % (test code = mono %) 2.8 % 3.9-13.4 L eos % (test code = eos %) 0 % 0.0-6.4 Basophils/100 leukocytes in 0.1 % 0.2-1.2 L Unspecified specimen (test code = 31682-6) Band form neutrophils [#/volume] 12.42 K/uL 1.78-5.38 H in Blood (test code = 78474-4) Lymphocytes [#/volume] in 1.15 K/uL 1.32-3.57 L Unspecified specimen by Automated count (test code = 06059-4) mono # (test code = mono #) 0.40 K/uL 0.30-0.82 eos # (test code = eos #) 0.00 K/uL 0.04-0.54 L basophil # (test code = basophil 0.01 K/uL 0.01-0.08 #) NRBC% (test code = NRBC%) 0 /100 WBC 0-0.2 NRBC# (test code = NRBC#) 0 K/uL [facility]portDifferent[facility] panel, method unspecified - [id number] 00:00:00NeutrophilsBandLymphocyteAtypical LymphMonocyteEosinophilBasophilMetamyelocyteMyelocytePromyelocyteBlastsNucleated Red Blood CellDifferential CommentAbs Neutrophil Count (Man)Abs Lymph Count (Man)Abs Monocyte Count (Man)Abs Eosinophil Count (Man)Abs Basophil Count (Man)Platelet EstimatePlatelet Morphol ogyHypochromasiaPoikilocytosisAnisocytosisMicrocytosisMacrocytosisTarget CellsBurr CellsH. C. [facility] W Auto Differential panel - [...] volume] (test code = 86.8 fL 83-100 55024-9) mean corpuscular hemoglobin (test 28.5 pg 26.8-33.4 [...] L leukocytes in Blood (test code = 49307-5) Immature granulocytes [#/volume] 0.0 K/uL 0.0-0.03 in Blood (test code = 73885-8) lymphocyte% (test code = 52.2 % 10.0-50.0 H lymphocyte%) mono % (test code = mono %) 8.4 % 3.9-13.4 eos % (test code = eos %) 2.7 % 0.0-6.4 Basophils/100 leukocytes in 0.6 % 0.2-1.2 Unspecified specimen (test code = 78528-7) Band form neutrophils [#/volume] 2.49 K/uL 1.78-5.38 in Blood (test code = 16794-0) Lymphocytes [#/volume] in 3.6 K/uL 1.32-3.57 H Unspecified specimen by Automated count (test code = 24421-7) mono # (test code = mono #) 0.58 K/uL 0.30-0.82 eos # (test code = eos #) 0.19 K/uL 0.04-0.54 basophil # (test code = basophil 0.04 K/uL 0.01-0.08 #) NRBC% (test code = NRBC%) 0 /100 WBC 0-0.2 NRBC# (test code = NRBC#) 0 K/uL [facility]PT/[id number] 10:10:00 Test Item Value Reference Range Interpretation Comments prothrombin time (test code = 9.9 seconds 10.3-12.3 L prothrombin time) INR in Blood by Coagulation assay <0.94 (test code = 45707-2) [facility]portCom[facility] metabolic 2000 panel - Serum or Plasma [...] (test code = 6768-6) [facility]portCreatine kinase [Enzymatic activity/volume] in Serum or [id number] 10:10:00 Test Item Value Reference Range Interpretation Comments creatine kinase (test code = creatine 243 U/L 20-200 H kinase) [facility]portDifferential panel, method unspecified - [id number] 00:00:00NeutrophilsBandLymphocyteAtypical LymphMonocyteEosinophilBasophilMetamyelocyteMyelocyteAbs Neutrophil Count (Man)Abs Lymph Count (Man)Abs Monocyte Count (Man)Abs Eosinophil Count (Man)Abs Basophil Count (Man)Platelet EstimateHypochromasiaMagoG. V. ([facility]) [facility] Centerpartial thromboplastin [id number] 00:00:00 Test Item Value Reference Range Interpretation Comments INR in Blood by Coagulation 23.6 seconds 22.5-37.0 assay (test code = 73344-9) [facility]portCreatine kinase.MB [Mass/volume] in Serum or Plasma 2021-09-25 00:00:00 Test Item Value Reference Range Interpretation Comments Creatine kinase.MB [Mass/volume] in 1.7 NG/mL 0.0-3.6 Serum or Plasma by Immunoassay (test code = 52965-7) [facility] Gulfportltrop [id number] 00:00:00 Test Item Value Reference Range Interpretation Comments Troponin T.cardiac [Mass/volume] in <0.01 0-0.011 Blood (test code = 59141-6) [facility]
[2023-07-06 11:29] LABS: Hematocrit 34.4 % (39.6-49.0); Lymphocytes % 7.6 % (15.3-44.8); MCV 90.7 fL (80-100); MPV 6.2 fL (7.6-11.3); Platelets 434 thou/uL (152-406); RBC Red Blood Cell Count 3.79 M/uL (4.33-5.43)
[2023-07-06] MEDS ORDERED: ONDANSETRON 4 MG/2 ML VIAL ONE ×2 (11:32→14:26)
[2023-07-06] MEDS ORDERED: HYDROMORPHONE HCL 1 MG/ML INJ ONE (11:32)
[2023-07-06] MEDS ORDERED: NA CHLORIDE 0.9% 1,000 ML ONE ×2 (11:32→12:57)
[2023-07-06 11:42] LABS: Specific Gravity 1.028 (1.005-1.030); Urine Bacteria None Seen /HPF (<20); Urine Bilirubin NEGATIVE (Negative); Urine Blood Negative (Negative); Urine Clarity Clear (Clear); Urine Color Yellow (Yellow); Urine Glucose NEGATIVE (Negative); Urine Mucus Slight /HPF (None Seen); Urine Protein TRACE (Negative); Urine RBC <5 /HPF (None Seen); Urine Urobilinogen Normal (Normal)
[2023-07-06 11:51] LABS: Albumin 3.1 g/dL (3.4-5.0); Bilirubin Total 0.4 mg/dL (0.2-1.0); Potassium 3.9 mEq/L (3.5-5.1); Protein, Total 7.1 g/dL (6.4-8.2)
--- NOTE | 2023-07-06 12:17 | RAD REPORT ---
EXAM DESCRIPTION: CT - Abdomen Pelvis W Contrast - 07/06/2023 11:50 am CLINICAL HISTORY: Abdominal pain COMPARISON: April 2023 TECHNIQUE: Computed axial tomography of the abdomen pelvis was obtained. 100 cc Isovue-300 was admin istered intravenously. Oral contrast was not requested which limits evaluation of bowel and appendix All CT scans are performed using dose optimization technique as appropriate and may include automated exposure control or mA/KV adjustment according to patient size. FINDINGS: Cholecystectomy. Small hiatal hernia. The liver, spleen, pancreas, adrenal and kidneys appear unremarkable. There is no evidence of diverticulitis. Pill camera within the ileum . Mild dilatation of loops of small bowel which are fluid-filled. Fluid is present within colon. Rectosigmoid colon is mildly distended with stool. Postsurgical changes involve large and small bowel . Several small right lower quadrant mesenteric lymph nodes. Trace amount of free fluid Mild anterior subluxation L5 on S1. Spondylolysis L5 IMPRESSION: Pill camera within the ileum Mild dilatation of fluid-filled loops of small bowel probably represents an enteritis. A partial/inte rmittent small bowel obstruction is considered less likely. If the [facility]'s pain persists [facility]
--- NOTE | 2023-07-06 12:25 | ER ---
Nurse's Notes [facility] Name: Piter Iglesias Age: 58 yrs Sex: Male : 1965 Arrival Date: 07/06/2023 Time: 11:02 Bed 20 Private MD: Diagnosis: Crohn's disease flare, enteritis, foreign body in small intestines (camera) Presentation: 07/06 11:06 Chief complaint: EMS states: toned out to patient home for abdominal pain, N/V, dark ld1 red blood in stool on Monday. Pt went to GI doctor last week "swallowed pill cameras.". Coronavirus screen: At this time, the client does not indicate any symptoms associated with coronavirus-19. Ebola Screen: No symptoms or risks identified at this time. Initial Sepsis Screen: Does the patient meet any 2 criteria? No. Patient's initial sepsis screen is negative. Does the patient have a suspected source of infection? No. Patient's initial sepsis screen is negative. Risk Assessment: Do you want to hurt yourself or someone else? Patient reports no desire to harm self or others. Onset of symptoms was July 06, 2023 at 11:08. 11:06 Method Of Arrival: EMS: [facility] ld1 11:06 Acuity: AISHA 3 ld1 Triage Assessment: 11:08 General: Appears in no apparent distress. uncomfortable, Behavior is calm, cooperative, ld1 appropriate for age. Pain: Complains of pain in abdomen Pain does not radiate. Pain currently is 9 out of 10 on a pain scale. Quality of pain is described as throbbing, Pain began 1 day ago. Is continuous. EENT: No signs and/or symptoms were reported regarding the EENT system. Neuro: Level of Consciousness is awake, alert, obeys commands, Oriented to person, place, time, situation. Cardiovascular: Capillary refill < 3 seconds Patient's skin is warm and dry. Rhythm is sinus tachycardia. Respiratory: Airway is patent Respiratory effort is even, unlabored. GI: Abdomen is round non-distended, Reports lower abdominal pain, upper abdominal pain, nausea, vomiting. : No signs and/or symptoms were reported regarding the genitourinary system. Derm: No signs and/or symptoms reported regarding the dermatologic system. Musculoskeletal: No signs and/or symptoms reported regarding the musculoskeletal system. Historical: - Allergies: 11:08 Nuts; ld1 - PMHx: 11:08 elevated creatinine levels; Asthma; Anxiety; Crohn's Disease; depressive disorder; ld1 diabetes mellitus; elevated liver enzymes; Hyperlipidemia; Hypertension; spinal stenosis; ulcerative colitis; - PSHx: 11:08 Cholecystectomy; intestinal Surgery; ld1 - Immunization history:: Adult Immunizations up to date. - Social history:: Smoking status: Patient denies any tobacco usage or history of. Patient/guardian denies using alcohol. Screenin:[facility] ED Fall Risk Assessment (Adult) History of falling in the last 3 months, ld1 including since admission No falls in past 3 months (0 pts). Abuse screen: Denies threats or abuse. Denies injuries from another. Nutritional screening: No deficits noted. Tuberculosis screening: No symptoms or risk factors identified. Assessment: 11:10 Reassessment: See triage assessment. ld1 12:30 Reassessment: Patient appears in no apparent distress at this time. No changes from ld1 previously documented assessment. Patient and/or family updated on plan of care and expected duration. Pain level reassessed. Patient is alert, oriented x 3, equal unlabored respirations, skin warm/dry/pink. 13:23 Reassessment: Patient appears in no apparent distress at this time. No changes from ld1 previously documented assessment. Patient and/or family updated on plan of care and expected duration. Pain level reassessed. 14:30 Reassessment: Patient appears in no apparent distress at this time. Patient and/or ph family updated on plan of care and expected duration. Pain level reassessed. Patient is alert, oriented x 3, equal unlabored respirations, skin warm/dry/pink. 15:40 Reassessment: Report called to Neva GOLDBERG. ph Vital Signs: 11:06 BP 111 / 90; Pulse 114; Resp 18; Temp 98.1(O); Pulse Ox 99% on R/A; Weight 79.38 kg; ld1 Height 5 ft. 8 in. ; Pain 9/10; 13:23 BP 117 / 87; Pulse 104; Resp 18; Pulse Ox 98% on R/A; ld1 15:00 BP 117 / 79; Pulse 110; Resp 18; Temp 97.8; Pulse Ox 98% on R/A; ph 11:06 Body Mass Index 26.61 (79.38 kg, 172.72 cm) ld1 11:06 Pain Scale: Adult ld1 ED Course: 11:05 Patient arrived in ED. ld1 11:06 Hayley Motley MD is Attending Physician. sp3 11:06 Domenica Olguin, RN is Primary Nurse. ld1 11:08 Triage completed. ld1 11:08 Arm band placed on right wrist. EKG completed in triage. Results shown to MD. EKG ld1 completed in triage. Results shown to MD. 11:10 Patient has correct armband on for positive identification. Placed in gown. Bed in low ld1 position. Call light in reach. Side rails up X2. child monitor on. Pulse ox on. NIBP on. Door closed. Noise minimized. Warm blanket given. 11:10 No provider procedures requiring assistance completed. ld1 11:22 Inserted saline lock: 20 gauge in left antecubital area, using aseptic technique. Blood ld1 collected. 11:52 CT Abd/Pelvis - IV Contrast Only In Process Unspecified. EDMS 12:24 Kun Mcarthur is Hospitalizing Provider. sp3 Administered Medications: 11:22 Drug: NS 0.9% IV 1000 ml IV at 1 bolus Per protocol; 1000 mL bolus Route: IV; Rate: 1 ld1 bolus; Site: left antecubital; 11:30 Drug: Ondansetron IVP 4 mg IVP once; over 2 minutes Route: IVP; Site: left antecubital; ld1 11:30 Drug: HYDROmorphone IVP 1 mg IVP once Route: IVP; Site: left antecubital; ld1 13:57 Follow up: Response: No adverse reaction ph 13:22 Drug: Piperacillin-Tazobactam IVPB 3.375 grams IVPB once over 60 mins; (mix in NS 100 ld1 mL) Route: IVPB; Infused Over: 60 mins; Site: right antecubital; 13:57 Follow up: Response: No adverse reaction; IV Status: Completed infusion ph 13:22 Drug: NS 0.9% IV 1000 ml IV at 125 ml/hr continuous Route: IV; Rate: 125 ml/hr; Site: ld1 right antecubital; 13:57 Follow up: Response: No adverse reaction; IV Status: Infusion continued upon admission ph Medication: 11:10 VIS not applicable for this client. ld1 Outcome: 12:25 Decision to Hospitalize by Provider. sp3 16:29 Patient left the ED. rs5 Signatures: Dispatcher [employer] Rhonda Thurman RN RN Domenica Olguin RN RN ld1 Hayley Motley MD MD sp3 Gage Caldwell RN RN rs5
--- NOTE | 2023-07-06 12:25 | EDPHYS ---
Physician Documentation [facility] Name: Piter Iglesias Age: 58 yrs Sex: Male : 1965 Arrival Date: 07/06/2023 Time: 11:02 Bed 20 Private MD: ED Physician Hayley Motley HPI: 07/06 11:32 This 58 yrs old Black Male presents to ER via EMS with complaints of Abdominal Pain. sp3 11:32 58-year-old male with extensive past medical history including hypertension, diabetes, sp3 Crohn's disease, ulcerative colitis status post partial colectomy by Dr. Garcia, cholecystectomy, and known adhesions now presents to the ED via EMS for cramping abdominal pain and subjective distention for the last 24 to 48 hours. Patient denies fever, vomiting, diarrhea, chest pain, shortness of breath, back pain, rash, syncope, near syncope, or any other signs or symptoms on ROS at this time. Last BM was yesterday.. Historical: - Allergies: 11:08 Nuts; ld1 - PMHx: 11:08 elevated creatinine levels; Asthma; Anxiety; Crohn's Disease; depressive disorder; ld1 diabetes mellitus; elevated liver enzymes; Hyperlipidemia; Hypertension; spinal stenosis; ulcerative colitis; - PSHx: 11:08 Cholecystectomy; intestinal Surgery; ld1 - Immunization history:: Adult Immunizations up to date. - Social history:: Smoking status: Patient denies any tobacco usage or history of. Patient/guardian denies using alcohol. ROS: 11:33 Constitutional: Negative for fever, chills, and weight loss, Eyes: Negative for injury, sp3 pain, redness, and discharge, ENT: Negative for injury, pain, and discharge, Neck: Negative for injury, pain, and swelling, Cardiovascular: Negative for chest pain, palpitations, and edema, Respiratory: Negative for shortness of breath, cough, wheezing, and pleuritic chest pain, Back: Negative for injury and pain, MS/Extremity: Negative for injury and deformity, Skin: Negative for injury, rash, and discoloration, Neuro: Negative for headache, weakness, numbness, tingling, and seizure, Psych: Negative for depression, anxiety, suicide ideation, homicidal ideation, and hallucinations, Allergy/Immunology: Negative for hives, rash, and allergies, Endocrine: Negative for neck swelling, polydipsia, polyuria, polyphagia, and marked weight changes, 11:33 All other systems are negative, Exam: 11:34 Constitutional: This is a well developed, well nourished patient who is awake, alert, sp3 and in no acute distress. Head/Face: Normocephalic, atraumatic. Eyes: Pupils equal round and reactive to light, extra-ocular motions intact. Lids and lashes normal. Conjunctiva and sclera are non-icteric and not injected. Cornea within normal limits. Periorbital areas with no swelling, redness, or edema. ENT: Nares patent. No nasal discharge, no septal abnormalities noted. External auditory canals are clear. Oropharynx with no redness, swelling, or masses, exudates, or evidence of obstruction, uvula midline. Mucous membranes moist. Neck: Trachea midline, no thyromegaly or masses palpated, and no cervical lymphadenopathy. Supple, full range of motion without nuchal rigidity, or vertebral point tenderness. No Meningismus. Chest/axilla: Normal chest wall appearance and motion. Nontender with no deformity. No lesions are appreciated. Cardiovascular: Regular rate and rhythm with a normal S1 and S2. No gallops, murmurs, or rubs. Normal PMI, no JVD. No pulse deficits. Respiratory: Lungs have equal breath sounds bilaterally, clear to auscultation and percussion. No rales, rhonchi or wheezes noted. No increased work of breathing, no retractions or nasal flaring. Back: No spinal tenderness. No costovertebral tenderness. Full range of motion. Skin: Warm, dry with normal turgor. Normal color with no rashes, no lesions, and no evidence of cellulitis. MS/ Extremity: Pulses equal, no cyanosis. Neurovascular intact. Full, normal range of motion. Neuro: Awake and alert, GCS 15, oriented to person, place, time, and situation. Cranial nerves II-XII grossly intact. Motor strength 5/5 in all extremities. Sensory grossly intact. Cerebellar exam normal. Normal gait. Psych: Awake, alert, with orientation to person, place and time. Behavior, mood, and affect are within normal limits. 11:34 Abdomen/GI: Diffuse abdominal pain to palpation without peritoneal signs, rebound or guarding., Vital Signs: 11:06 BP 111 / 90; Pulse 114; Resp 18; Temp 98.1(O); Pulse Ox 99% on R/A; Weight 79.38 kg; ld1 Height 5 ft. 8 in. ; Pain 9/10; 13:23 BP 117 / 87; Pulse 104; Resp 18; Pulse Ox 98% on R/A; ld1 15:00 BP 117 / 79; Pulse 110; Resp 18; Temp 97.8; Pulse Ox 98% on R/A; ph 11:06 Body Mass Index 26.61 (79.38 kg, 172.72 cm) ld1 11:06 Pain Scale: Adult ld1 MDM: 11:06 Patient medically screened. sp3 11:34 Data reviewed: vital signs, nurses notes, old medical records, lab test result(s), sp3 radiologic studies. ED course: 58-year-old male with extensive Crohn's and ulcerative colitis history with multiple abdominal surgeries now presents with abdominal pain. Differential diagnosis includes small bowel obstruction, ileus, adhesions, colitis, enteritis, among others. Patient is mildly tachycardic and could also represent early sepsis. I am not highly concerned about vascular pathology including AAA or dissection, or pathology including kidney stone, UTI/pyelonephritis spectrum, or any other critical illness at this time. Work-up will include CT scan of the abdomen pelvis, laboratory values, urine analysis, and initiation of pain and nausea control along with IV fluids. Disposition pending work-up and patient course.. 12:23 ED course: Patient has enteritis and continued pain. Heart rate is down but still sp3 mildly tachycardic. We will start Zosyn, continue IV fluids and admit patient for further GI consultation. Patient also has a camera in his ileum from his prior and ongoing work-up. Patient sees Dr. Carvalho for GI.. 07/06 11:07 Order name: CBC with Diff; Complete Time: 12:20 sp3 07/06 11:07 Order name: CMP; Complete Time: 12:20 sp3 07/06 11:07 Order name: Lipase; Complete Time: 12:20 sp3 07/06 11:07 Order name: Urinalysis w/ reflexes; Complete Time: 12:20 sp3 07/06 13:55 Order name: CBC with Automated Diff EDMS 07/06 13:55 Order name: CBC with Automated Diff EDMS 07/06 13:55 Order name: Comprehensive Metabolic Panel EDMS 07/06 13:55 Order name: Comprehensive Metabolic Panel EDMS 07/06 11:07 Order name: CT Abd/Pelvis - IV Contrast Only; Complete Time: 12:20 sp3 07/06 11:07 Order name: IV Saline Lock; Complete Time: 11:13 sp3 07/06 11:07 Order name: Labs collected and sent; Complete Time: 11:13 sp3 Administered Medications: 11:22 Drug: NS 0.9% IV 1000 ml IV at 1 bolus Per protocol; 1000 mL bolus Route: IV; Rate: 1 ld1 bolus; Site: left antecubital; 11:30 Drug: Ondansetron IVP 4 mg IVP once; over 2 minutes Route: IVP; Site: left antecubital; ld1 11:30 Drug: HYDROmorphone IVP 1 mg IVP once Route: IVP; Site: left antecubital; ld1 13:57 Follow up: Response: No adverse reaction ph 13:22 Drug: Piperacillin-Tazobactam IVPB 3.375 grams IVPB once over 60 mins; (mix in NS 100 ld1 mL) Route: IVPB; Infused Over: 60 mins; Site: right antecubital; 13:57 Follow up: Response: No adverse reaction; IV Status: Completed infusion ph 13:22 Drug: NS 0.9% IV 1000 ml IV at 125 ml/hr continuous Route: IV; Rate: 125 ml/hr; Site: ld1 right antecubital; 13:57 Follow up: Response: No adverse reaction; IV Status: Infusion continued upon admission ph Disposition Summary: 07/06/23 12:25 Hospitalization Ordered Notes: Hospitalization Status: Inpatient Admission sp3 Provider: Kun Mcarthur sp3 Location: Telemetry/MedSurg (Inpatient) sp3 Condition: Stable sp3 Problem: an acute exacerbation sp3 Symptoms: have worsened sp3 Bed/Room Type: Standard sp3 Room Assignment: 221(07/06/23 15:04) em1 Diagnosis - Crohn's disease flare, enteritis, foreign body in small intestines (camera) sp3 Forms: - Medication Reconciliation Form sp3 - SBAR form sp3 - Leadership Thank You Letter sp3 Signatures: Dispatcher [employer] Vinicio Bills em1 Domenica Olguin RN RN ld1 Hayley Motley MD MD sp3 Rhonda Gentile RN ph Corrections: (The following items were deleted from the chart) 15:04 12:25 sp3 em1
[2023-07-06] MEDS ORDERED: NA CHLORIDE 0.9% 100 ML ONE ×2 (12:57→13:29)
[2023-07-06] MEDS ORDERED: PIPERACIL/TAZO 3.375 GM VIAL IV ONE ×2 (12:57→13:29)
[2023-07-06] MEDS ORDERED: MORPHINE 2 MG/ML SYR IV PRN (13:51)
[2023-07-06] MEDS ORDERED: ACETAMINOPHEN 500 MG TAB PO PRN (13:51)
[2023-07-06] MEDS: MESALAMINE 400 MG CAPSULE.DR PO SCH ×2 (14:00→21:10)
[2023-07-06] MEDS: ALPRAZOLAM 1 MG TABLET PO SCH ×2 (14:00→21:10)
[2023-07-06] MEDS ORDERED: HYDROMORPHONE HCL 0.5 MG/0.5 ML INJ IV PRN (14:02)
[2023-07-06] MEDS: ONDANSETRON 4 MG/2 ML VIAL IV PRN (14:15)
[2023-07-06] MEDS ORDERED: HYDROMORPHONE HCL 0.5 MG/0.5 ML INJ ONE (14:25)
[2023-07-06] MEDS ORDERED: ALPRAZOLAM 1 MG TABLET ONE (14:26)
[2023-07-06] MEDS: NA CHLORIDE 0.9% 1,000 ML IV SCH (17:35)
[2023-07-06] MEDS: METHYLPREDNISOLONE 40 MG INJ IV SCH (17:35)
[2023-07-06] MEDS ORDERED: DIGOXIN 0.25 MG/ML AMP IV ONE (19:09)
[2023-07-06] MEDS ORDERED: NA CHLORIDE 0.9% 250 ML IV ONE (21:06)
[2023-07-07] MEDS: METHYLPREDNISOLONE 40 MG INJ IV SCH ×4 (01:01→17:22)
[2023-07-07] MEDS: NA CHLORIDE 0.9% 1,000 ML IV SCH ×3 (05:11→16:03)
--- NOTE | 2023-07-07 08:06 | RAD REPORT ---
EXAM DESCRIPTION: RAD - Abdomen 1 View (KUB) - 07/07/2023 5:50 am CLINICAL HISTORY: Abdomen pain FINDINGS: Pill camera right lower quadrant probably ileum. Several loops of small bowel are mildly dilated which may indicate a partial obstruction or focal ile us.
[2023-07-07] MEDS: PARoxetine HCL 10 MG TAB PO SCH (09:18)
[2023-07-07] MEDS: ALPRAZOLAM 1 MG TABLET PO SCH ×3 (09:18→20:23)
[2023-07-07] MEDS: MESALAMINE 400 MG CAPSULE.DR PO SCH ×3 (09:18→20:23)
[2023-07-07] MEDS: ONDANSETRON 4 MG/2 ML VIAL IV PRN ×3 (10:31→20:22)
[2023-07-07] MEDS ORDERED: LACTULOSE 20 GM/30 ML UCUP PO ONE ×2 (11:22→12:15)
[2023-07-07 12:23] LABS: Hematocrit 31.6 % (39.6-49.0); Lymphocytes % 10.8 % (15.3-44.8); MCV 91.3 fL (80-100); MPV 6.2 fL (7.6-11.3); Platelets 393 thou/uL (152-406); RBC Red Blood Cell Count 3.46 M/uL (4.33-5.43)
[2023-07-07 12:40] LABS: Albumin 2.5 g/dL (3.4-5.0); Bilirubin Total 0.2 mg/dL (0.2-1.0); Potassium 4.2 mEq/L (3.5-5.1); Protein, Total 6.7 g/dL (6.4-8.2)
[2023-07-08] MEDS: METHYLPREDNISOLONE 40 MG INJ IV SCH ×4 (00:27→16:58)
[2023-07-08] MEDS: NA CHLORIDE 0.9% 1,000 ML IV SCH ×2 (05:25→16:58)
--- NOTE | 2023-07-08 08:24 | RAD REPORT ---
EXAM DESCRIPTION: RAD - Abdomen 1 View (KUB) - 07/08/2023 6:47 am CLINICAL HISTORY: ileus COMPARISON: Abdomen 1 View (KUB) dated 07/07/2023; Abdomen 1 View (KUB) dated 08/20/2016 TECHNIQUE: Single AP view of the abdomen. FINDINGS: Central small bowel gaseous distension has improved since the prior exam. Rounded metallic radiodensity in the right flank is nonspecific but stable in appearance may or may not relate to a P illCam. No suspicious calcifications. No significant bony abnormality. IMPRESSION: Improving central abdominal small bowel gaseous distension.
[2023-07-08] MEDS: PARoxetine HCL 10 MG TAB PO SCH (09:00)
[2023-07-08] MEDS: MESALAMINE 400 MG CAPSULE.DR PO SCH ×3 (09:00→20:17)
[2023-07-08] MEDS: ALPRAZOLAM 1 MG TABLET PO SCH ×3 (09:00→20:16)
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
[2023-07-08] MEDS: ONDANSETRON 4 MG/2 ML VIAL IV PRN (20:16)
[2023-07-08] MEDS ORDERED: SODIUM CHLORIDE 0.9% 10ML INJ IV PRN (20:51)
[2023-07-08] MEDS: PANTOPRAZOLE 40 MG INJ IVP SCH (21:20)
[2023-07-09] MEDS: METHYLPREDNISOLONE 40 MG INJ IV SCH ×4 (00:20→17:38)
[2023-07-09] MEDS: CALCIUM CARBONATE CHEW 500MG TAB PO PRN ×2 (00:23→13:57)
[2023-07-09] MEDS: HYDROCODONE/APAP 10/325 TAB PO PRN ×2 (00:25→20:46)
[2023-07-09] MEDS: NA CHLORIDE 0.9% 1,000 ML IV SCH ×2 (02:00→12:08)
[2023-07-09] MEDS: ALPRAZOLAM 1 MG TABLET PO SCH ×3 (08:50→20:46)
[2023-07-09] MEDS: PARoxetine HCL 10 MG TAB PO SCH (08:50)
[2023-07-09] MEDS: PANTOPRAZOLE 40 MG INJ IVP SCH ×2 (08:50→20:46)
[2023-07-09] MEDS: MESALAMINE 400 MG CAPSULE.DR PO SCH ×3 (08:50→20:46)
--- NOTE | 2023-07-09 10:38 | P.HP ---
Certification for Inpatient Patient admitted to: Inpatient With expected LOS: >2 Midnights Patient will require the following post-hospital care: None Practitioner: I am a practitioner with admitting privileges, knowledge of patient current condition, hospital course, and medical plan of care. Services: Services provided to patient in accordance with Admission requirements found in Title 42 Section 412.3 of the Code of Federal Regulations Patient History Date of Service: 07/06/23 Reason for admission: Abdominal pain History of Present Illness: Patient is a 58-year-old gentleman came to the hospital with intractable abdominal pain and nausea and vomiting. He was given antiemetics and IV fluids in the emergency room and he is clinically feeling better. In the ER, patient had a CT scan which showed a PillCam that is still present after he took the PillCam a few days ago. It has not passed all the way through. Patient has a history of Crohn's disease. Patient used to take mesalamine for his Crohn's disease but he has not been taking any medicine for quite a while. He has not had any melanotic stools or hematochezia. Patient's imaging scans show a possible ileus versus partial small bowel obstruction. At this time, patient will be admitted to the hospital for further evaluation. Allergies No Known Drug Allergies Allergy (Verified 08/05/16 03:46) Unknown Home Medications: Alprazolam [Xanax] 2 mg PO TID 08/05/16 Gabapentin [Neurontin] 800 mg PO TID 08/05/16 Montelukast Sodium [Singulair] 10 mg PO DAILY 08/05/16 Paroxetine HCl [Paxil] 20 mg PO DAILY 08/05/16 Potassium Chloride [K-Dur] 20 meq PO DAILY #30 tab.er.prt 08/10/16 Spironolactone [Aldactone] 25 mg PO DAILY #30 tablet 08/10/16 Magnesium Oxide [Mag 0X*] 400 mg PO DAILY 08/19/16 - Past Medical/Surgical History Diabetic: No -: Asthma -: Htn -: Hyperlipidemia -: Spinal stenosis -: Depession -: GERD -: Anxiety -: Partial small bowel resection -: Cholecystectomy -: Partial colectomy - Family History Mother Medical History: Heart disease Father Medical History: Heart disease, Lung disease, Stroke - Social History Smoking Status: Never smoker Alcohol use: No CD- Drugs: No Caffeine use: Yes Place of Residence: Home Review of Systems 10-point ROS is otherwise unremarkable Physical Examination - Vital Signs Temperature: 98.4 F Blood Pressure: 137/81 Pulse: 84 Respirations: 18 Pulse Ox (%): 98 - Physical Exam General: Alert, In no apparent distress, Oriented x3 HEENT: Atraumatic, PERRLA, Mucous membr. moist/pink, EOMI, Sclerae nonicteric Neck: Supple, 2+ carotid pulse no bruit, No LAD, Without JVD or thyroid abnormality Respiratory: Clear to auscultation bilaterally, Normal air movement Cardiovascular: Regular rate/rhythm, Normal S1 S2 Gastrointestinal: Normal bowel sounds, Soft and benign, No rebound, No guarding, Distended, Tenderness Musculoskeletal: No clubbing, No swelling, No tenderness Integumentary: No rashes Neurological: Normal gait, Normal speech, Normal strength at 5/5 x4 extr, Normal tone, Sensation intact, Cranial nerves 3-12 intact, Normal affect Lymphatics: No axilla or inguinal lymphadenopathy Assessment & Plan - Problems (Diagnosis) (1) Crohn's regional enteritis Current Visit: Yes Status: Acute (2) Partial small bowel obstruction Current Visit: Yes Status: Acute (3) Depressive disorder Onset Date: 08/22/16 Current Visit: No Status: Acute (4) GERD (gastroesophageal reflux disease) Onset Date: 08/22/16 Current Visit: No Status: Acute (5) Hyperlipidemia Onset Date: 08/22/16 Current Visit: No Status: Acute (6) Hypertension Onset Date: 08/22/16 Current Visit: No Status: Acute - Plan Plan: -IV antibiotics and steroids -IV fluids -Surgery and GI consultation -repeat labs -N.p.o. -Repeat abdominal film -NG tube if necessary -Antiemetics Discharge Plan: Home - Advance Directives Does patient have a Living Will: No Does patient have a Durable POA for Healthcare: No - Code Status/Comfort Care Code Status Assessed: Yes Code Status: Full Code Critical Care: No Time Spent Managing PTS Care (In Minutes): 45
--- NOTE | 2023-07-09 10:44 | P.PN ---
Date of Service: 07/08/23 Subjective Date of Service: 07/07/23 Subjective: No new changes, No C/O voiced, Improving Review of Systems 10-point ROS is otherwise unremarkable Physical Examination - Vital Signs Temperature: 98.4 F Blood Pressure: 137/81 Pulse: 84 Respirations: 18 Pulse Ox (%): 98 - Physical Exam General: Alert, In no apparent distress, Oriented x3 HEENT: Atraumatic, PERRLA, EOMI Neck: Supple, JVD not distended Respiratory: Clear to auscultation bilaterally, Normal air movement Cardiovascular: Regular rate/rhythm, Normal S1 S2 Gastrointestinal: Normal bowel sounds, No tenderness Musculoskeletal: No tenderness Integumentary: No rashes Neurological: Normal speech, Normal tone, Normal affect Lymphatics: No axilla or inguinal lymphadenopathy - Studies Medications List Reviewed: Yes Assessment & Plan - Problems (Diagnosis) (1) Crohn's regional enteritis Current Visit: Yes Status: Acute (2) Partial small bowel obstruction Current Visit: Yes Status: Acute (3) Depressive disorder Onset Date: 08/22/16 Current Visit: No Status: Acute (4) GERD (gastroesophageal reflux disease) Onset Date: 08/22/16 Current Visit: No Status: Acute (5) Hyperlipidemia Onset Date: 08/22/16 Current Visit: No Status: Acute (6) Hypertension Onset Date: 08/22/16 Current Visit: No Status: Acute - Plan Plan: Continue plan of care as mentioned below: -IV antibiotics and steroids -IV fluids -Surgery and GI consultation -repeat labs -N.p.o. -Repeat abdominal film -NG tube if necessary -Antiemetics Discharge Plan: Home Plan to discharge in: 24 Hours - Advance Directives Does patient have a Living Will: No Does patient have a Durable POA for Healthcare: No - Code Status/Comfort Care Code Status: Full Code Critical Care: No Time Spent Managing PTS Care (In Minutes): 30
[2023-07-10] MEDS: METHYLPREDNISOLONE 40 MG INJ IV SCH ×3 (01:13→12:43)
[2023-07-10] MEDS: NA CHLORIDE 0.9% 1,000 ML IV SCH ×4 (05:57→15:07)
[2023-07-10] MEDS: ALPRAZOLAM 1 MG TABLET PO SCH ×2 (08:35→14:00)
[2023-07-10] MEDS: PANTOPRAZOLE 40 MG INJ IVP SCH ×2 (08:35→21:19)
[2023-07-10] MEDS: PARoxetine HCL 10 MG TAB PO SCH (08:35)
[2023-07-10] MEDS: MESALAMINE 400 MG CAPSULE.DR PO SCH ×2 (08:35→14:00)
--- NOTE | 2023-07-10 09:51 | P.PN ---
Subjective Date of Service: 07/10/23 Chief Complaint: Abdominal pain Subjective: No new changes, No C/O voiced, Tolerating diet, Improving, Doing well Patient History 07/06/23 Reason for admission: Abdominal pain History of Present Illness: Patient is a 58-year-old gentleman came to the hospital with intractable abdominal pain and nausea and vomiting. He was given antiemetics and IV fluids in the emergency room and he is clinically feeling better. In the ER, patient had a CT scan which showed a PillCam that is still present after he took the PillCam a few days ago. It has not passed all the way through. Patient has a history of Crohn's disease. Patient used to take mesalamine for his Crohn's disease but he has not been taking any medicine for quite a while. He has not had any melanotic stools or hematochezia. Patient's imaging scans show a possible ileus versus partial small bowel obstruction. At this time, patient will be admitted to the hospital for further evaluation. 07/10/2023 Patient is alert and oriented x3 No acute complaints Tolerating diet Vital signs stable <Martha Starr - Last Filed: 07/10/23 09:57> Date of Service: 07/10/23 <Karthik George - Last Filed: 07/10/23 17:40> Review of Systems 10-point ROS is otherwise unremarkable <Martha Starr - Last Filed: 07/10/23 09:57> Physical Examination - Vital Signs Temperature: 98.0 F Blood Pressure: 140/96 Pulse: 86 Respirations: 18 Pulse Ox (%): 98 - Studies Medications List Reviewed: Yes <Martha Starr - Last Filed: 07/10/23 09:57> Assessment And Plan - Plan - Physical Exam General: Alert, In no apparent distress, Oriented x3 HEENT: Atraumatic, PERRLA, Mucous membr. moist/pink, EOMI, Sclerae nonicteric Neck: Supple, 2+ carotid pulse no bruit, No LAD, Without JVD or thyroid abnormality Respiratory: Clear to auscultation bilaterally, Normal air movement Cardiovascular: Regular rate/rhythm, Normal S1 S2 Gastrointestinal: Normal bowel sounds, Soft and benign, No rebound, No guarding, Distended, Tenderness Musculoskeletal: No clubbing, No swelling, No tenderness Integumentary: No rashes Neurological: Normal gait, Normal speech, Normal strength at 5/5 x4 extr, Normal tone, Sensation intact, Cranial nerves 3-12 intact, Normal affect Lymphatics: No axilla or inguinal lymphadenopathy Assessment (1) Crohn's regional enteritis Current Visit: Yes Status: Acute (2) Partial small bowel obstruction Current Visit: Yes Status: Acute (3) Depressive disorder Onset Date: 08/22/16 Current Visit: No Status: Acute (4) GERD (gastroesophageal reflux disease) Onset Date: 08/22/16 Current Visit: No Status: Acute (5) Hyperlipidemia Onset Date: 08/22/16 Current Visit: No Status: Acute (6) Hypertension Onset Date: 08/22/16 Current Visit: No Status: Acute - Plan (1) Crohn's regional enteritis Current Visit: Yes Status: Acute Chronic, improving on mesalamine 800 p.o. 3 times daily and Solu-Medrol 40 IV every 6 hours Continue to monitor (2) Partial small bowel obstruction Current Visit: Yes Status: Acute Plan: -Continue IV antibiotics and steroids -IV fluids, on liquid diet now -repeat labs in a.m. -Antiemetics as needed (3) Depressive disorder Onset Date: 08/22/16 Current Visit: No Status: Acute Chronic on paroxetine 20 mg p.o. daily Continue the current medication (4) GERD (gastroesophageal reflux disease) Onset Date: 08/22/16 Current Visit: No Status: Acute Chronic on Protonix 40 mg IV every 12 hours (5) Hyperlipidemia Onset Date: 08/22/16 Current Visit: No Status: Acute Chronic continue home medications (6) Hypertension Chronic, controlled continue home medications -Continue IV antibiotics and steroids -IV fluids, on liquid diet now -repeat labs in a.m. -Antiemetics as needed Discharge Plan: Home Plan to discharge in: 24 Hours - Advance Directives Does patient have a Living Will: No Does patient have a Durable POA for Healthcare: No - Code Status/Comfort Care Code Status: Full Code Critical Care: No Time Spent Managing PTS Care (In Minutes): 30 <Martha Starr - Last Filed: 07/10/23 09:57> Physician Review: Patient Assessed, Agree with Above Assessment and Plan Physician Review Additional Text: He underwent exploratory laparotomy with extensive adhesiolysis > [address] Jean. Per Dr. Jean, there was evidence of bowel ischemia s/p resection. He states that he follows with Dr. Simmons as an outpatient - consultation has been placed. Will keep NPO for now. <Karthik George - Last Filed: 07/10/23 17:40>
--- NOTE | 2023-07-10 13:16 | RAD REPORT ---
EXAM DESCRIPTION: RAD - Abdomen 1 View (KUB) - 07/10/2023 9:53 am CLINICAL HISTORY: abd pain COMPARISON: Abdomen 1 View (KUB) dated 07/08/2023; Abdomen 1 View (KUB) dated 07/07/2023; Abdomen 1 View (KUB) dated 08/20/2016 TECHNIQUE: Single AP view of the abdomen. FINDINGS: Nonobstructive bowel gas pattern. No air-fluid levels, free air, or pneumatosis. No suspic ious calcifications. No significant bony abnormality. Stable metallic rounded body along the right flank. IMPRESSION: Nonobstructive bowel gas pattern.
[2023-07-10] MEDS ORDERED: propofoL 200 MG/20 ML VIAL IV ONE ×2 (13:25→14:39)
[2023-07-10] MEDS ORDERED: FENTANYL CITR 100 MCG/2 ML ONE ×2 (13:26→14:42)
[2023-07-10] MEDS ORDERED: MIDAZOLAM HCL 2 MG/2 ML INJ ONE (13:26)
[2023-07-10] MEDS ORDERED: LIDOCAINE 2% MPF 5 ML VIAL ONE (13:26)
[2023-07-10] MEDS ORDERED: ROCURONIUM 50 MG/5 ML VIAL IV ONE ×3 (13:27→16:20)
[2023-07-10] MEDS ORDERED: ONDANSETRON 4 MG/2 ML VIAL ONE (13:29)
[2023-07-10] MEDS ORDERED: BUPIVACAINE 0.25% PF 30 ML VIAL ONE (13:57)
[2023-07-10] MEDS: CEFAZOLIN SODIUM 2 GM/VIAL ONE ×2 (14:12→14:13)
[2023-07-10] MEDS ORDERED: NA CHLORIDE 0.9% 1,000 ML ONE ×2 (14:58→18:53)
[2023-07-10] MEDS ORDERED: KETOROLAC 30 MG/ML INJ ONE (15:07)
[2023-07-10] MEDS ORDERED: dexAMETHasone 4 MG/ML VIAL ONE (16:14)
[2023-07-10] MEDS ORDERED: MORPHINE 10 MG/ML VIAL ONE (16:25)
--- NOTE | 2023-07-10 17:01 | RAD REPORT ---
EXAM DESCRIPTION: RAD - Abdomen 1 View (KUB) - 07/10/2023 4:41 pm CLINICAL HISTORY: Abdomen pain FINDINGS: Pill camera overlies the proximal ascending colon. Most likely it has migrated from the il eum into the colon. This can be monitored on a subsequent x-ray as it should migrate into the more distal portion of colo n.
--- NOTE | 2023-07-10 17:19 | P.OP ---
Preoperative diagnosis: Small Bowel Obstruction - Retained Pillcam Postoperative diagnosis: Small Bowel Obstruction - Retained Pillcam Primary procedure: Exploratory Laparotomy with extensive adhesiolysis > 2 hours Secondary procedure: Small bowel resection Other procedure(s): Small bowel enterotomy with repair Anesthesia: GETA Estimated blood loss: ~ 100cc Specimen: Small Bowel Findings: Intraoperative x-ray confirmed pillcam in colon Complications: None Transferred to: Recovery Room Condition: Good
[2023-07-10] MEDS ORDERED: NEOSTIGMINE 1 MG/ML -10 ML VIAL ONE (17:25)
[2023-07-10] MEDS ORDERED: GLYCOPYRROLATE 0.2 MG/ML SYR ONE (17:26)
[2023-07-10] MEDS: FENTANYL CITR 100 MCG/2 ML ONE ×4 (18:14→18:37)
--- NOTE | 2023-07-10 19:15 | RAD REPORT ---
EXAM DESCRIPTION: RAD - Abdomen 1 View (KUB) - 07/10/2023 6:57 pm CLINICAL HISTORY: Device placement/NG tube placement FINDINGS: A NG tube is coiled within the gastric fundus. The tip lies about 3 centimeters from the G E junction. Pill camera within the ascending colon
--- NOTE | 2023-07-10 20:33 | CON ---
This is a brief note in regard to the patient. I was informed around 12 about the consult for the christa upton who is one of my outpatient who had the pill camera and now admitted with nausea, vomiting, abd ominal pain. However, the imaging CT did not show any evidence of obstruction. Patient did have the PillCam still retained in the terminal ileum. When I came to see the patient, patient is already in the OR, undergoing a laparotomy. I am unable to examine the patient. We will follow up with him af ter the surgery. US/MODL Voice ID: [id number] Report ID: [id number]
[2023-07-10] MEDS: INSULIN REGULAR (HUMAN) 100 UNIT/ML SQ SCH (21:00)
[2023-07-10] MEDS: D5.45NS W/KCL 20MEQ 1,000 ML IV SCH (21:19)
[2023-07-10] MEDS: HYDROMORPHONE HCL 1 MG/ML INJ IV PRN (21:44)
--- NOTE | 2023-07-10 23:54 | OP ---
Date of Procedure: 07/10/2023 Surgeon: Dany Jean MD, Preoperative Diagnosis: Small bowel obstruction. Secondary diagnosis was retained PillCam. Postoperative Diagnosis: Small bowel obstruction. Secondary diagnosis was retained PillCam. Procedure Performed: 1.Exploratory laparotomy with extensive adhesiolysis greater than 2 hours. 2.Small bowel resection from mid small bowel. 3.Small bowel enterotomy with foreign body removal and repair. Anesthesia: General endotracheal. Estimated Blood Loss: Approximately 100 cc. Specimen: Small bowel. Findings: Intraoperative x-ray confirmed PillCam was delivered into the colon. Foreign body removed was not the PillCam, but in fact a solid form of food stuff of similar size and consistency. Complications: None. Disposition: Patient was transferred to recovery room in good condition. Procedure In Detail: After informed consent was obtained, patient was brought to the operating room and prepped and draped in the usual sterile fashion. After adequate anesthesia achieved, a midline l aparotomy incision had previous been performed, I made a midline laparotomy incision through previous incision down through subcutaneous tissues, dissected down to the midline linea alba. This appeared to be slightly paramedian incision over the rectus sheath, slightly listing to the left side. I fol lowed the previous incision, however, due to significant scar tissue in this area. I then grasped an d elevated the peritoneum and entered it sharply. Immediately encountered was significant scar tissu e with omentum to the anterior abdominal wall. This required extensive adhesiolysis and meticulous d issection to enter the abdomen safely. After the abdomen was entered safely, I continued to dissect circumferentially around to remove the omentum from the anterior abdominal wall to allow for plane of visualization ultimately after this was completed. I was able to visualize the small bowel after ma gardenia a bivalve of the greater omentum using the LigaSure device to achieve hemostasis. At this point , the small bowel was run. At this point, I palpated object near the terminal ileum, which I suspect ed to be the PillCam. At this point, it was milked back to a portion of the small bowel that had eladia e significant scar tissue and ultimately the midportion of the ileum was inspected. A small enteroto my was made with electrocautery and the foreign body was delivered; however, this was not in fact the PillCam. It was in fact a firm piece of food stuff of similar size, shape, and consistency as the P illCam. At this point, the enterotomy was closed using running 3-0 PDS suture with good approximatio n of tissues. I then tested the anastomosis by pressurizing this with small bowel contents and no le akage was appreciated at this point. I then proceeded to perform an additionally extensive adhesioly sis of the small bowel as there were severe scars and adhesions. As I ran the small bowel, there was 1 area of ischemic changes of the mid small bowel. At this point, I decided to do a small bowel res ection. I had inspected the bowel approximately 3 to 4 times and could not palpate the PillCam at is point. I performed an intraoperative x-ray at this point and found the PillCam looked as if it cheng d been delivered into the right colon. I palpated the right colon; however, there was stool material in there obscuring the ability for me to feel this foreign body. In addition, there was significant scar tissue in the area, and as such, I opted not to proceed with significant takedown and pursue is PillCam as I felt that if it was delivered into the colon it was more likely to be delivered and w e can always consider colonoscopic attempts to remove at that point should it not be delivered going forward. At this point, I irrigated the abdomen copiously. There was 1 area of ischemic bowel as de scribed earlier, which appeared to be ischemic from takedown of significant scar tissue. It was viab le, but had slightly ischemic changes. As such, at approximately 3 cm segment of small bowel, I made a small mesenteric enterotomy in the proximal-distal side of the small bowel. ERIK 60 blue load was fired across the proximal-distal aspect. LigaSure was used to take the mesentery down this point and the small bowel was sent off for pathologic examination. At this point, I aligned the proximal-dist al small bowel in a [id number] fashion and secured the antimesenteric border with interrupted 2-0 s ilk sutures. I then made small enterotomies in the proximal-distal side, and I again used the ERIK 60 to fire and create a common channel at this point. I inspected the common channel. There was no he mostasis required and the anastomosis was good and viable at this point. I then proceeded to close t he common channel with a running Tray type 3-0 PDS suture with good approximation of tissues. I t hen created a second layer using interrupted 3-0 silk sutures with good approximation of tissues. I then closed the common channel using 3-0 Vicryl suture. The area was copiously irrigated. I ran the small bowel once again from the ligament of Treitz to the ileocecal valve and found no additional sm all bowel contents. At this point, I milked everything from proximal to distal. Once again palpatin g for any foreign bodies, which were not appreciated in the small bowel at this point. After this wa s completed, I brought the omentum back to the normal anatomic position, placed the intra-abdominal F JACQUE and sucked out the remaining effluent as patient remained in neutral position. I then closed the midline defect using a running #1 looped PDS suture with good approximation of tissues. The FISH wa s removed at this point. The skin was copiously irrigated and closed with interrupted radhika. Jennifer ent tolerated the procedure well without evidence of complication. Transferred to PACU in good condi tion. All counts were correct at the end of the case. CHRYSTAL/AIDE Voice ID: [id number] Report ID: [id number]
[2023-07-11] MEDS: PIPER TAZO 3.375 GM in NA CHLORIDE 0.9% 100 ML IV SCH ×3 (00:22→17:00)
[2023-07-11] MEDS: HEPARIN 5000 UNIT/ML 1 ML VIAL SQ SCH ×3 (00:22→18:36)
[2023-07-11] MEDS: HYDROMORPHONE HCL 1 MG/ML INJ IV PRN ×2 (03:01→13:16)
[2023-07-11] MEDS: INSULIN REGULAR (HUMAN) 100 UNIT/ML SQ SCH ×4 (07:30→21:00)
[2023-07-11] MEDS: PANTOPRAZOLE 40 MG INJ IVP SCH ×2 (08:13→21:00)
[2023-07-11 10:01] LABS: Magnesium 2.2 mg/dL (1.6-2.4); Potassium 4.1 mEq/L (3.5-5.1)
--- NOTE | 2023-07-11 10:12 | P.PN ---
Subjective Date of Service: 07/11/23 Chief Complaint: Abdominal pain Patient History 07/06/23 Reason for admission: Abdominal pain History of Present Illness: Patient is a 58-year-old gentleman came to the hospital with intractable abdominal pain and nausea and vomiting. He was given antiemetics and IV fluids in the emergency room and he is clinically feeling better. In the ER, patient had a CT scan which showed a PillCam that is still present after he took the PillCam a few days ago. It has not passed all the way through. Patient has a history of Crohn's disease. Patient used to take mesalamine for his Crohn's disease but he has not been taking any medicine for quite a while. He has not had any melanotic stools or hematochezia. Patient's imaging scans show a possible ileus versus partial small bowel obstruction. At this time, patient will be admitted to the hospital for further evaluation. 07/10/2023 Patient is alert and oriented x3 s/p Exploratory Laparotomy with extensive adhesiolysis > 2 hours -07/10/2023 Nasogastric tube to free drainage No acute complaints N.p.o. at this time Vital signs stable <Martha Starr - Last Filed: 07/11/23 18:07> Date of Service: 07/11/23 <Karthik George - Last Filed: 07/11/23 20:29> Physical Examination - Vital Signs Temperature: 98.5 F Blood Pressure: 156/92 Pulse: 87 Respirations: 18 Pulse Ox (%): 93 - Studies Medications List Reviewed: Yes <Martha Starr - Last Filed: 07/11/23 18:07> Assessment And Plan - Plan - Physical Exam General: Alert, In no apparent distress, Oriented x3 HEENT: Atraumatic, PERRLA, Mucous membr. moist/pink, EOMI, Sclerae nonicteric Neck: Supple, 2+ carotid pulse no bruit, No LAD, Without JVD or thyroid abnormality Respiratory: Clear to auscultation bilaterally, Normal air movement Cardiovascular: Regular rate/rhythm, Normal S1 S2 Gastrointestinal: Normal bowel sounds, Soft and benign, No rebound, No guarding, Distended, positive for tenderness, abdominal dressing dry and intact Musculoskeletal: No clubbing, No swelling, No tenderness Integumentary: No rashes Neurological: Normal gait, Normal speech, Normal strength at 5/5 x4 extr, Normal tone, Sensation intact, Cranial nerves 3-12 intact, Normal affect Lymphatics: No axilla or inguinal lymphadenopathy Assessment (1) Crohn's regional enteritis Current Visit: Yes Status: Acute (2) Partial small bowel obstruction s/p Exploratory Laparotomy with extensive adhesiolysis > 2 hours -07/10/2023 Current Visit: Yes Status: Acute (3) Depressive disorder Onset Date: 08/22/16 Current Visit: No Status: Acute (4) GERD (gastroesophageal reflux disease) Onset Date: 08/22/16 Current Visit: No Status: Acute (5) Hyperlipidemia Onset Date: 08/22/16 Current Visit: No Status: Acute (6) Hypertension Onset Date: 08/22/16 Current Visit: No Status: Acute - Plan (1) Crohn's regional enteritis Current Visit: Yes Status: Acute Chronic, improving on mesalamine 800 p.o. 3 times daily and Solu-Medrol 40 IV every 6 hours Continue to monitor (2) Partial small bowel obstruction, s/p Exploratory Laparotomy with extensive adhesiolysis > 2 hours -07/10/2023 Current Visit: Yes Status: Acute Plan: -Postop Exploratory Laparotomy with extensive adhesiolysis - continue IV antibiotics and steroids -IV fluids, on liquid diet now -repeat labs in a.m. -Analgesics and antiemetics as needed (3) Depressive disorder Onset Date: 08/22/16 Current Visit: No Status: Acute Chronic on paroxetine 20 mg p.o. daily Continue the current medication (4) GERD (gastroesophageal reflux disease) Onset Date: 08/22/16 Current Visit: No Status: Acute Chronic on Protonix 40 mg IV every 12 hours (5) Hyperlipidemia Onset Date: 08/22/16 Current Visit: No Status: Acute Chronic continue home medications (6) Hypertension Chronic, controlled continue home medications -Continue IV antibiotics and steroids -IV fluids, on liquid diet now -repeat labs in a.m. -Antiemetics as needed Discharge Plan: Home Plan to discharge in: 24 Hours - Advance Directives Does patient have a Living Will: No Does patient have a Durable POA for Healthcare: No - Code Status/Comfort Care Code Status: Full Code Critical Care: No Time Spent Managing PTS Care (In Minutes): 30 Discharge Plan: Home Plan to discharge in: 48 Hours - Code Status/Comfort Care Code Status Assessed: Yes (Full code) Code Status: Full Code Physician Review: Patient Assessed, Agree with Above Assessment and Plan Time Spent Managing PTS Care (In Minutes): 35 (Minutes) <Martha Starr - Last Filed: 07/11/23 18:07> Physician Review: Patient Assessed, Agree with Above Assessment and Plan Physician Review Additional Text: He was seen this morning working with physical therapy. He tolerated the procedure well and his pain is well controlled. Appreciate Gastroenterology and General Surgery recommendations. <Karthik George - Last Filed: 07/11/23 20:29>
[2023-07-11] MEDS: D5.45NS W/KCL 20MEQ 1,000 ML IV SCH ×3 (10:30→18:30)
[2023-07-11 14:21] LABS: Absolute Lymphocytes (CBC) 2.5 K/uL (0.7-4.9); Hematocrit 34.5 % (39.6-49.0); Lymphocytes % 15.1 % (15.3-44.8); MCV 90.8 fL (80-100); MPV 6.3 fL (7.6-11.3); Platelets 421 thou/uL (152-406)
[2023-07-11] MEDS ORDERED: DEXTROSE 10%-WATER 500 ML IV SCH (19:00)
[2023-07-11] MEDS: AA 5%/D20W/ELECTROLYTES-TPN 2,000 ML IV SCH (20:00)
[2023-07-11] MEDS: Mupirocin NASAL 2 APPL/1 GM TUBE NAS SCH (21:00)
[2023-07-12] MEDS: HEPARIN 5000 UNIT/ML 1 ML VIAL SQ SCH ×3 (00:36→16:59)
[2023-07-12] MEDS: PIPER TAZO 3.375 GM in NA CHLORIDE 0.9% 100 ML IV SCH ×4 (01:00→23:59)
[2023-07-12] MEDS: HYDROMORPHONE HCL 1 MG/ML INJ IV PRN ×4 (01:41→23:56)
[2023-07-12] MEDS: D5.45NS W/KCL 20MEQ 1,000 ML IV SCH ×3 (02:30→18:30)
[2023-07-12 03:25] LABS: Absolute Lymphocytes (CBC) 2.8 K/uL (0.7-4.9); Hematocrit 32.1 % (39.6-49.0); MCV 90.6 fL (80-100); MPV 6.4 fL (7.6-11.3); Platelets 389 thou/uL (152-406); RBC Red Blood Cell Count 3.54 M/uL (4.33-5.43)
[2023-07-12 03:32] LABS: Magnesium 2.3 mg/dL (1.6-2.4); Potassium 3.1 mEq/L (3.5-5.1)
[2023-07-12] MEDS: INSULIN REGULAR (HUMAN) 100 UNIT/ML SQ SCH ×4 (07:30→21:00)
[2023-07-12] MEDS: Mupirocin NASAL 2 APPL/1 GM TUBE NAS SCH ×2 (08:14→22:18)
[2023-07-12] MEDS: PANTOPRAZOLE 40 MG INJ IVP SCH ×2 (08:14→22:17)
--- NOTE | 2023-07-12 09:37 | P.PN ---
Subjective Date of Service: 07/12/23 Primary Care Provider: Karthik Odom Chief Complaint: Abdominal pain Subjective: No new changes, Improving, Doing well Patient History 07/06/23 Reason for admission: Abdominal pain History of Present Illness: Patient is a 58-year-old gentleman came to the hospital with intractable abdominal pain and nausea and vomiting. He was given antiemetics and IV fluids in the emergency room and he is clinically feeling better. In the ER, patient had a CT scan which showed a PillCam that is still present after he took the PillCam a few days ago. It has not passed all the way through. Patient has a history of Crohn's disease. Patient used to take mesalamine for his Crohn's disease but he has not been taking any medicine for quite a while. He has not had any melanotic stools or hematochezia. Patient's imaging scans show a possible ileus versus partial small bowel obstruction. At this time, patient will be admitted to the hospital for further evaluation. 07/12/2023 Patient is alert and oriented x3 s/p Exploratory Laparotomy with extensive adhesiolysis -07/10/2023 Nasogastric tube to free drainage Patient was out of bed to chair for 4 hours yesterday No acute complaints N.p.o. at this time Vital signs stable <Martha Starr - Last Filed: 07/12/23 09:41> Date of Service: 07/12/23 <Karthik George - Last Filed: 07/12/23 17:12> Physical Examination - Vital Signs Temperature: 98.2 F Blood Pressure: 155/98 Pulse: 104 Respirations: 16 Pulse Ox (%): 95 - Studies Medications List Reviewed: Yes <Martha Starr - Last Filed: 07/12/23 09:41> Assessment And Plan - Plan - Physical Exam General: Alert, In no apparent distress, Oriented x3 HEENT: Atraumatic, PERRLA, Mucous membr. moist/pink, EOMI, Sclerae nonicteric Neck: Supple, 2+ carotid pulse no bruit, No LAD, Without JVD or thyroid abn ormality Respiratory: Clear to auscultation bilaterally, Normal air movement Cardiovascular: Regular rate/rhythm, Normal S1 S2 Gastrointestinal: Normal bowel sounds, Soft and benign, No rebound, No guarding, Distended, positive for tenderness, mid abdominal dressing dry and intact Musculoskeletal: No clubbing, No swelling, No tenderness Integumentary: No rashes Neurological: Normal gait, Normal speech, Normal strength at 5/5 x4 extr, Normal tone, Sensation intact, Cranial nerves 3-12 intact, Normal affect Lymphatics: No axilla or inguinal lymphadenopathy Assessment (1) Crohn's regional enteritis Current Visit: Yes Status: Acute (2) Partial small bowel obstruction s/p Exploratory Laparotomy with extensive adhesiolysis > 2 hours -07/10/2023 Current Visit: Yes Status: Acute (3) Depressive disorder Onset Date: 08/22/16 Current Visit: No Status: Acute (4) GERD (gastroesophageal reflux disease) Onset Date: 08/22/16 Current Visit: No Status: Acute (5) Hyperlipidemia Onset Date: 08/22/16 Current Visit: No Status: Acute (6) Hypertension Onset Date: 08/22/16 Current Visit: No Status: Acute - Plan (1) Crohn's regional enteritis Current Visit: Yes Status: Acute Chronic, improving Continue to monitor (2) Partial small bowel obstruction, s/p Exploratory Laparotomy with extensive adhesiolysis -07/10/2023 Current Visit: Yes Status: Acute Plan: -Postop Exploratory Laparotomy with extensive adhesiolysis - continue IV antibiotics and steroids -N.p.o. -repeat labs in a.m. -Analgesics and antiemetics as needed -Patient was out of bed yesterday (3) Depressive disorder Onset Date: 08/22/16 Current Visit: No Status: Acute Continue the current medication (4) GERD (gastroesophageal reflux disease) Onset Date: 08/22/16 Current Visit: No Status: Acute Chronic on Protonix 40 mg IV every 12 hours (5) Hyperlipidemia Onset Date: 08/22/16 Current Visit: No Status: Acute Chronic continue home medications (6) Hypertension Chronic, controlled continue home medications - Advance Directives Does patient have a Living Will: No Does patient have a Durable POA for Healthcare: No - Code Status/Comfort Care Code Status: Full Code Critical Care: No DVT Prophylaxis: SCDs, Heparin Diet: NPO Time Spent Managing PTS Care (In Minutes): 30 Discharge Plan: Home Plan to discharge in: 48 Hours - Code Status/Comfort Care Code Status Assessed: Yes (full code) Code Status: Full Code Physician Review: Patient Assessed, Agree with Above Assessment and Plan Critical Care: No Time Spent Managing PTS Care (In Minutes): 35 (minutes) <Martha Starr - Last Filed: 07/12/23 09:41> Physician Review: Patient Assessed, Agree with Above Assessment and Plan Physician Review Additional Text: No new symptoms. He states that his pain is well controlled. He has been working well with PT. NG tube remains in place. Appreciate General Surgery recommendations <Karthik George - Last Filed: 07/12/23 17:12>
[2023-07-12] MEDS: ONDANSETRON 4 MG/2 ML VIAL IV PRN (15:05)
--- NOTE | 2023-07-12 16:25 | RAD REPORT ---
EXAM DESCRIPTION: RAD - Chest Single View - 07/12/2023 4:16 pm CLINICAL HISTORY: R sided PICC line COMPARISON: Abdomen 1 View (KUB) dated 07/10/2023; Abdomen 1 View (KUB) dated 07/10/2023; Abdomen 1 View (KUB) dated 07/10/2023; Abdomen 1 View (KUB) dated 07/08/2023 FINDINGS: Portable chest was obtained following placement of a right upper extremity PICC line. The catheter tip projects over the SVC.. Enteric tube coils in the stomach.
[2023-07-12] MEDS: AA 5%/D20W/ELECTROLYTES-TPN 2,000 ML, Lipids 20% 250 ML with MULTIVITAMINS INJ 10 ML IV SCH ×3 (17:16)
[2023-07-13 04:38] LABS: Absolute Lymphocytes (CBC) 2.2 K/uL (0.7-4.9); Hematocrit 28.1 % (39.6-49.0); Lymphocytes % 19.2 % (15.3-44.8); MCV 88.9 fL (80-100); MPV 6.1 fL (7.6-11.3); Platelets 315 thou/uL (152-406); RBC Red Blood Cell Count 3.16 M/uL (4.33-5.43)
[2023-07-13 04:46] LABS: Magnesium 2.3 mg/dL (1.6-2.4); Phosphorus 2.7 mg/dL (2.5-4.9); Potassium 3.1 mEq/L (3.5-5.1)
[2023-07-13] MEDS: HYDROMORPHONE HCL 1 MG/ML INJ IV PRN ×2 (05:09→14:49)
[2023-07-13] MEDS: KCL 20 MEQ/100 mL IVPB 20 MEQ/100 ML BAG IV SCH ×4 (05:57→22:29)
[2023-07-13] MEDS: INSULIN REGULAR (HUMAN) 100 UNIT/ML SQ SCH ×4 (07:30→21:00)
[2023-07-13] MEDS: PIPER TAZO 3.375 GM in NA CHLORIDE 0.9% 100 ML IV SCH ×2 (09:20→18:27)
[2023-07-13] MEDS: HEPARIN 5000 UNIT/ML 1 ML VIAL SQ SCH ×3 (09:20→18:27)
[2023-07-13] MEDS: PANTOPRAZOLE 40 MG INJ IVP SCH ×2 (09:20→22:28)
[2023-07-13] MEDS: Mupirocin NASAL 2 APPL/1 GM TUBE NAS SCH ×2 (09:21→22:28)
--- NOTE | 2023-07-13 10:20 | P.PN ---
Subjective Date of Service: 07/13/23 Chief Complaint: Abdominal pain Subjective: No new changes, Improving, Doing well Patient History 07/06/23 Reason for admission: Abdominal pain History of Present Illness: Patient is a 58-year-old gentleman came to the hospital with intractable abdominal pain and nausea and vomiting. He was given antiemetics and IV fluids in the emergency room and he is clinically feeling better. In the ER, patient had a CT scan which showed a PillCam that is still present after he took the PillCam a few days ago. It has not passed all the way through. Patient has a history of Crohn's disease. Patient used to take mesalamine for his Crohn's disease but he has not been taking any medicine for quite a while. He has not had any melanotic stools or hematochezia. Patient's imaging scans show a possible ileus versus partial small bowel obstruction. At this time, patient will be admitted to the hospital for further evaluation. 07/13/2023 Patient is alert and oriented x3 s/p Exploratory Laparotomy with extensive adhesiolysis -07/10/2023 Nasogastric tube to free drainage Patient is n.p.o., on Clinimix Patient was out of bed to chair with PT No acute complaints Vital signs stable <Martha Starr - Last Filed: 07/13/23 16:39> Date of Service: 07/13/23 <Karthik George - Last Filed: 07/13/23 18:16> Review of Systems 10-point ROS is otherwise unremarkable <Martha Starr - Last Filed: 07/13/23 16:39> Physical Examination - Vital Signs Temperature: 99.3 F Blood Pressure: 129/89 Pulse: 100 Respirations: 18 Pulse Ox (%): 95 - Studies Medications List Reviewed: Yes <Martha Starr - Last Filed: 07/13/23 16:39> Assessment And Plan - Plan - Physical Exam General: Alert, In no apparent distress, Oriented x3 HEENT: Atraumatic, PERRLA, Mucous membr. moist/pink, EOMI, Sclerae nonicteric Neck: Supple, 2+ carotid pulse no bruit, No LAD, Without JVD or thyroid abnormality Respiratory: Clear to auscultation bilaterally, Normal air movement Cardiovascular: Regular rate/rhythm, Normal S1 S2 Gastrointestinal: Normal bowel sounds, Soft and benign, No rebound, No guarding, Distended, positive for tenderness, mid abdominal dressing dry and intact Musculoskeletal: No clubbing, No swelling, No tenderness Integumentary: No rashes Neurological: Normal gait, Normal speech, Normal strength at 5/5 x4 extr, Normal tone, Sensation intact, Cranial nerves 3-12 intact, Normal affect Lymphatics: No axilla or inguinal lymphadenopathy Assessment (1) Crohn's regional enteritis Current Visit: Yes Status: Acute (2) Partial small bowel obstruction s/p Exploratory Laparotomy with extensive adhesiolysis > 2 hours -07/10/2023 Current Visit: Yes Status: Acute (3) Depressive disorder Onset Date: 08/22/16 Current Visit: No Status: Acute (4) GERD (gastroesophageal reflux disease) Onset Date: 08/22/16 Current Visit: No Status: Acute (5) Hyperlipidemia Onset Date: 08/22/16 Current Visit: No Status: Acute (6) Hypertension Onset Date: 08/22/16 Current Visit: No Status: Acute - Plan (1) Crohn's regional enteritis Current Visit: Yes Status: Acute Chronic, improving Continue to monitor (2) Partial small bowel obstruction, s/p Exploratory Laparotomy with extensive adhesiolysis -07/10/2023 Current Visit: Yes Status: Acute -Postop Exploratory Laparotomy with extensive adhesiolysis on 07/11/2023 - continue IV antibiotics -N.p.o. started on Clinimix -repeat labs in a.m. -Analgesics and antiemetics as needed -Patient was out of bed with PT (3) Depressive disorder Onset Date: 08/22/16 Current Visit: No Status: Acute Chronic, controlled .continue the current medication (4) GERD (gastroesophageal reflux disease) Onset Date: 08/22/16 Current Visit: No Status: Acute Chronic on Protonix 40 mg IV every 12 hours (5) Hyperlipidemia Onset Date: 08/22/16 Current Visit: No Status: Acute Chronic continue home medications (6) Hypertension Chronic, controlled not on any medications now. - Advance Directives Does patient have a Living Will: No Does patient have a Durable POA for Healthcare: No - Code Status/Comfort Care Code Status: Full Code Critical Care: No DVT Prophylaxis: SCDs, Heparin Diet: NPO Time Spent Managing PTS Care (In Minutes): 30 Discharge Plan: Home Plan to discharge in: 48 Hours - Code Status/Comfort Care Code Status Assessed: Yes (Full code) Code Status: Full Code Physician Review: Patient Assessed, Agree with Above Assessment and Plan Critical Care: No Time Spent Managing PTS Care (In Minutes): 35 (Minutes) <Martha Starr - Last Filed: 07/13/23 16:39> Physician Review: Patient Assessed, Agree with Above Assessment and Plan Physician Review Additional Text: POD # 3. Pain is well-controlled. Currently on TPN. Appreciate Surgery recommendations. <Karthik George - Last Filed: 07/13/23 18:16>
[2023-07-13 13:22] VITALS: BMI 26.6
[2023-07-13] MEDS: AA 5%/D20W/ELECTROLYTES-TPN 2,000 ML IV SCH (18:26)
[2023-07-14] MEDS: PIPER TAZO 3.375 GM in NA CHLORIDE 0.9% 100 ML IV SCH ×3 (01:48→17:35)
[2023-07-14] MEDS: HEPARIN 5000 UNIT/ML 1 ML VIAL SQ SCH ×3 (01:49→17:35)
[2023-07-14] MEDS: INSULIN REGULAR (HUMAN) 100 UNIT/ML SQ SCH ×4 (07:30→21:00)
--- NOTE | 2023-07-14 10:04 | P.PN ---
Subjective Date of Service: 07/14/23 Chief Complaint: Abdominal pain Subjective: No new changes, Improving, Doing well Patient History 07/06/23 Reason for admission: Abdominal pain History of Present Illness: Patient is a 58-year-old gentleman came to the hospital with intractable abdominal pain and nausea and vomiting. He was given antiemetics and IV fluids in the emergency room and he is clinically feeling better. In the ER, patient had a CT scan which showed a PillCam that is still present after he took the PillCam a few days ago. It has not passed all the way through. Patient has a history of Crohn's disease. Patient used to take mesalamine for his Crohn's disease but he has not been taking any medicine for quite a while. He has not had any melanotic stools or hematochezia. Patient's imaging scans show a possible ileus versus partial small bowel obstruction. At this time, patient will be admitted to the hospital for further evaluation. 07/14/2023 Patient is alert and oriented x3 s/p Exploratory Laparotomy with extensive adhesiolysis -07/10/2023 Nasogastric tube to free drainage Patient is n.p.o., on Clinimix Patient was out of bed to chair No acute complaints Vital signs stable <Martha Starr - Last Filed: 07/14/23 16:23> Date of Service: 07/14/23 <Karthik George - Last Filed: 07/14/23 19:19> Physical Examination - Vital Signs Temperature: 97.5 F Blood Pressure: 145/99 Pulse: 107 Respirations: 18 Pulse Ox (%): 93 - Studies Medications List Reviewed: Yes <Martha Starr - Last Filed: 07/14/23 16:23> Assessment And Plan - Plan - Physical Exam General: Alert, In no apparent distress, Oriented x3 HEENT: Atraumatic, PERRLA, Mucous membr. moist/pink, EOMI, Sclerae nonicteric Neck: Supple, 2+ carotid pulse no bruit, No LAD, Without JVD or thyroid abnormality Respiratory: Clear to auscultation bilaterally, Normal air movement Cardiovascular: Regular rate/rhythm, Normal S1 S2 Gastrointestinal: Normal bowel sounds, mid abdominal dressing dry and intact Musculoskeletal: No clubbing, No swelling, No tenderness Integumentary: Midabdominal surgical incision Neurological: Normal gait, Normal speech, Normal strength at 5/5 x4 extr, Normal tone, Sensation intact, Cranial nerves 3-12 intact, Normal affect Assessment (1) Crohn's regional enteritis Current Visit: Yes Status: Acute (2) Partial small bowel obstruction s/p Exploratory Laparotomy with extensive adhesiolysis > 2 hours -07/10/2023 Current Visit: Yes Status: Acute (3) Depressive disorder Onset Date: 08/22/16 Current Visit: No Status: Acute (4) GERD (gastroesophageal reflux disease) Onset Date: 08/22/16 Current Visit: No Status: Acute (5) Hyperlipidemia Onset Date: 08/22/16 Current Visit: No Status: Acute (6) Hypertension Onset Date: 08/22/16 Current Visit: No Status: Acute - Plan (1) Crohn's regional enteritis Current Visit: Yes Status: Acute Chronic, improving Continue to monitor (2) Partial small bowel obstruction, s/p Exploratory Laparotomy with extensive adhesiolysis -07/10/2023 Current Visit: Yes Status: Acute -Postop Exploratory Laparotomy with extensive adhesiolysis on 07/11/2023 - continue IV antibiotics -N.p.o. started on Clinimix -repeat labs in a.m. -Analgesics and antiemetics as needed -Patient was out of bed to chair with PT (3) Depressive disorder Onset Date: 08/22/16 Current Visit: No Status: Acute Chronic, controlled .continue the current medication (4) GERD (gastroesophageal reflux disease) Onset Date: 08/22/16 Current Visit: No Status: Acute Chronic on Protonix 40 mg IV every 12 hours (5) Hyperlipidemia Onset Date: 08/22/16 Current Visit: No Status: Acute Chronic continue home medications (6) Hypertension Chronic, controlled not on any medications now. - Advance Directives Does patient have a Living Will: No Does patient have a Durable POA for Healthcare: No - Code Status/Comfort Care Code Status: Full Code Critical Care: No DVT Prophylaxis: SCDs, Heparin Diet: NPO Discharge Plan: LTAC Plan to discharge in: 48 Hours - Code Status/Comfort Care Code Status Assessed: Yes (full code) Code Status: Full Code Physician Review: Patient Assessed, Agree with Above Assessment and Plan Critical Care: No Time Spent Managing PTS Care (In Minutes): 35 (minutes) <Martha Starr - Last Filed: 07/14/23 16:23> Physician Review: Patient Assessed, Agree with Above Assessment and Plan Physician Review Additional Text: He was seen ambulating in the hallway with PT. Appears to be clinically improving. Appreciate Surgery recommendations. <Karthik George - Last Filed: 07/14/23 19:19>
[2023-07-14] MEDS: PANTOPRAZOLE 40 MG INJ IVP SCH ×2 (10:57→21:20)
[2023-07-14] MEDS: Mupirocin NASAL 2 APPL/1 GM TUBE NAS SCH ×2 (10:57→21:20)
[2023-07-14 11:58] LABS: Magnesium 2.1 mg/dL (1.6-2.4); Phosphorus 3.2 mg/dL (2.5-4.9); Potassium 3.6 mEq/L (3.5-5.1)
[2023-07-14 13:31] LABS: Absolute Lymphocytes (CBC) 2.1 K/uL (0.7-4.9); Hematocrit 32.7 % (39.6-49.0); Lymphocytes % 15.3 % (15.3-44.8); MCV 90.8 fL (80-100); Platelets 200 thou/uL (152-406); RBC Red Blood Cell Count 3.61 M/uL (4.33-5.43)
[2023-07-14] MEDS: NA CHLORIDE 0.9% 1,000 ML IV SCH (14:00)
[2023-07-14] MEDS: AA 5%/D20W/ELECTROLYTES-TPN 2,000 ML, Lipids 20% 250 ML with MULTIVITAMINS INJ 10 ML IV SCH ×3 (17:34)
[2023-07-15] MEDS: PIPER TAZO 3.375 GM in NA CHLORIDE 0.9% 100 ML IV SCH ×3 (00:50→16:59)
[2023-07-15] MEDS: HEPARIN 5000 UNIT/ML 1 ML VIAL SQ SCH ×3 (01:02→17:00)
[2023-07-15] MEDS: INSULIN REGULAR (HUMAN) 100 UNIT/ML SQ SCH ×4 (07:30→21:00)
[2023-07-15 07:33] LABS: Absolute Lymphocytes (CBC) 1.9 K/uL (0.7-4.9); Lymphocytes % 14.9 % (15.3-44.8); MPV 6.6 fL (7.6-11.3); Platelets 226 thou/uL (152-406); RBC Red Blood Cell Count 3.08 M/uL (4.33-5.43)
[2023-07-15 07:48] LABS: Phosphorus 3.5 mg/dL (2.5-4.9); Potassium 3.2 mEq/L (3.5-5.1)
[2023-07-15] MEDS: NA CHLORIDE 0.9% 1,000 ML IV SCH ×2 (08:12→17:18)
[2023-07-15] MEDS: PANTOPRAZOLE 40 MG INJ IVP SCH ×2 (08:53→21:27)
[2023-07-15] MEDS: Mupirocin NASAL 2 APPL/1 GM TUBE NAS SCH ×2 (08:53→21:33)
--- NOTE | 2023-07-15 11:24 | P.PN ---
Subjective Date of Service: 07/15/23 Primary Care Provider: Karthik Odom Chief Complaint: Abdominal pain Subjective: No new changes, No C/O voiced, Improving, Doing well Patient History 07/06/23 Reason for admission: Abdominal pain History of Present Illness: Patient is a 58-year-old gentleman came to the hospital with intractable abdominal pain and nausea and vomiting. He was given antiemetics and IV fluids in the emergency room and he is clinically feeling better. In the ER, patient had a CT scan which showed a PillCam that is still present after he took the PillCam a few days ago. It has not passed all the way through. Patient has a history of Crohn's disease. Patient used to take mesalamine for his Crohn's disease but he has not been taking any medicine for quite a while. He has not had any melanotic stools or hematochezia. Patient's imaging scans show a possible ileus versus partial small bowel obstruction. At this time, patient will be admitted to the hospital for further evaluation. 07/15/2023 Patient is alert and oriented x3 s/p Exploratory Laparotomy with extensive adhesiolysis -07/10/2023 Nasogastric tube to free drainage Patient is n.p.o., on Clinimix Patient was out of bed to chair daily Mccauley's cath dc'd No acute complaints Vital signs stable <Martha Starr - Last Filed: 07/15/23 14:47> Date of Service: 07/15/23 <Karthik George - Last Filed: 07/15/23 15:18> Review of Systems 10-point ROS is otherwise unremarkable <Martha Starr - Last Filed: 07/15/23 14:47> Physical Examination - Vital Signs Temperature: 98.2 F Blood Pressure: 132/96 Pulse: 107 Respirations: 16 Pulse Ox (%): 98 - Studies Medications List Reviewed: Yes <Martha Starr - Last Filed: 07/15/23 14:47> Assessment And Plan - Plan - Physical Exam General: Alert, In no apparent distress, Oriented x3 HEENT: Atraumatic, PERRLA, Mucous membr. moist/pink, EOMI, Sclerae nonicteric Neck: Supple, 2+ carotid pulse no bruit, No LAD, Without JVD or thyroid abnormality Respiratory: Clear to auscultation bilaterally, Normal air movement Cardiovascular: Regular rate/rhythm, Normal S1 S2 Gastrointestinal: Normal bowel sounds, mid abdominal dressing dry and intact Musculoskeletal: No clubbing, No swelling, No tenderness Integumentary: Midabdominal surgical incision Neurological: Normal gait, Normal speech, Normal strength at 5/5 x4 extr, Normal tone, Sensation intact, Cranial nerves 3-12 intact, Normal affect Assessment (1) Crohn's regional enteritis Current Visit: Yes Status: Acute (2) Partial small bowel obstruction s/p Exploratory Laparotomy with extensive adhesiolysis > 2 hours -07/10/2023 Current Visit: Yes Status: Acute (3) Depressive disorder Onset Date: 08/22/16 Current Visit: No Status: Acute (4) GERD (gastroesophageal reflux disease) Onset Date: 08/22/16 Current Visit: No Status: Acute (5) Hyperlipidemia Onset Date: 08/22/16 Current Visit: No Status: Acute (6) Hypertension Onset Date: 08/22/16 Current Visit: No Status: Acute - Plan (1) Crohn's regional enteritis Current Visit: Yes Status: Acute Chronic, improving Continue to monitor (2) Partial small bowel obstruction, s/p Exploratory Laparotomy with extensive adhesiolysis -07/10/2023 Current Visit: Yes Status: Acute -Postop Exploratory Laparotomy with extensive adhesiolysis on 07/11/2023 - continue IV antibiotics -N.p.o. started on Clinimix -Parisa Sanchez -repeat labs in a.m. -Analgesics and antiemetics as needed -Patient was out of bed to chair with PT (3) Depressive disorder Onset Date: 08/22/16 Current Visit: No Status: Acute Chronic, controlled .continue the current medication (4) GERD (gastroesophageal reflux disease) Onset Date: 08/22/16 Current Visit: No Status: Acute Chronic on Protonix 40 mg IV every 12 hours (5) Hyperlipidemia Onset Date: 08/22/16 Current Visit: No Status: Acute Chronic continue home medications (6) Hypertension Chronic, controlled not on any medications now. - Advance Directives Does patient have a Living Will: No Does patient have a Durable POA for Healthcare: No - Code Status/Comfort Care Code Status: Full Code Critical Care: No DVT Prophylaxis: SCDs, Heparin Diet: NPO Discharge Plan: Home Plan to discharge in: 72 Hours - Code Status/Comfort Care Code Status Assessed: Yes (full code) Code Status: Full Code Physician Review: Patient Assessed, Agree with Above Assessment and Plan Critical Care: No Time Spent Managing PTS Care (In Minutes): 35 (minutes) <Martha Starr - Last Filed: 07/15/23 14:47> Physician Review: Patient Assessed, Agree with Above Assessment and Plan Physician Review Additional Text: He is doing well this morning. He denies any concerns at this time. Spoke with Dr. Jean, he states that plan is to re-introduce food and wean off of TPN once he is able to have a bowel movement. <Karthik George - Last Filed: 07/15/23 15:18>
[2023-07-15] MEDS: AA 5%/D20W/ELECTROLYTES-TPN 2,000 ML IV SCH (16:59)
[2023-07-16] MEDS: HEPARIN 5000 UNIT/ML 1 ML VIAL SQ SCH ×4 (00:42→23:59)
[2023-07-16] MEDS: PIPER TAZO 3.375 GM in NA CHLORIDE 0.9% 100 ML IV SCH ×4 (00:42→23:59)
[2023-07-16] MEDS: NA CHLORIDE 0.9% 1,000 ML IV SCH ×4 (02:24→20:36)
[2023-07-16 06:03] LABS: Lymphocytes % 18.2 % (15.3-44.8); MCV 90.6 fL (80-100); MPV 6.5 fL (7.6-11.3); Platelets 222 thou/uL (152-406); RBC Red Blood Cell Count 2.98 M/uL (4.33-5.43)
[2023-07-16 06:15] LABS: Magnesium 2.1 mg/dL (1.6-2.4); Phosphorus 3.3 mg/dL (2.5-4.9); Potassium 3.4 mEq/L (3.5-5.1)
[2023-07-16] MEDS: INSULIN REGULAR (HUMAN) 100 UNIT/ML SQ SCH ×4 (07:30→20:34)
[2023-07-16] MEDS: Mupirocin NASAL 2 APPL/1 GM TUBE NAS SCH (08:33)
[2023-07-16] MEDS: PANTOPRAZOLE 40 MG INJ IVP SCH ×2 (08:34→20:35)
[2023-07-16] MEDS ORDERED: POTASSIUM CL SA 10 MEQ TAB PO ONE (09:00)
--- NOTE | 2023-07-16 10:20 | P.PN ---
Subjective Date of Service: 07/16/23 Primary Care Provider: Karthik Odom Chief Complaint: Abdominal pain Subjective: No new changes, Ambulating, Improving, Doing well Patient History 07/06/23 Reason for admission: Abdominal pain History of Present Illness: Patient is a 58-year-old gentleman came to the hospital with intractable abdominal pain and nausea and vomiting. He was given antiemetics and IV fluids in the emergency room and he is clinically feeling better. In the ER, patient had a CT scan which showed a PillCam that is still present after he took the PillCam a few days ago. It has not passed all the way through. Patient has a history of Crohn's disease. Patient used to take mesalamine for his Crohn's disease but he has not been taking any medicine for quite a while. He has not had any melanotic stools or hematochezia. Patient's imaging scans show a possible ileus versus partial small bowel obstruction. At this time, patient will be admitted to the hospital for further evaluation. 07/16/2023 Patient is alert and oriented x3 s/p Exploratory Laparotomy with extensive adhesiolysis -07/10/2023 Nasogastric tube to free drainage Patient is n.p.o., on Clinimix Patient was out of bed to chair daily No acute complaints Vital signs stable, except mild tachycardia 114/min <Martha Starr - Last Filed: 07/16/23 10:21> Date of Service: 07/16/23 <Karthik George - Last Filed: 07/16/23 16:34> Physical Examination - Vital Signs Temperature: 98.5 F Blood Pressure: 134/90 Pulse: 89 Respirations: 18 Pulse Ox (%): 97 - Studies Medications List Reviewed: Yes <Martha Starr - Last Filed: 07/16/23 10:21> Assessment And Plan - Plan - Physical Exam General: Alert, In no apparent distress, Oriented x3 HEENT: Atraumatic, PERRLA, Mucous membr. moist/pink, EOMI, Sclerae nonicteric Neck: Supple, 2+ carotid pulse no bruit, No LAD, Without JVD or thyroid abnormality Respiratory: Clear to auscultation bilaterally, Normal air movement Cardiovascular: Regular rate/rhythm, Normal S1 S2 Gastrointestinal: Normal bowel sounds, mid abdominal dressing dry and intact Musculoskeletal: No clubbing, No swelling, No tenderness Integumentary: Midabdominal surgical incision Neurological: Normal gait, Normal speech, Normal strength at 5/5 x4 extr, Normal tone, Sensation intact, Cranial nerves 3-12 intact, Normal affect Assessment (1) Crohn's regional enteritis Current Visit: Yes Status: Acute (2) Partial small bowel obstruction s/p Exploratory Laparotomy with extensive adhesiolysis > 2 hours -07/10/2023 Current Visit: Yes Status: Acute (3) Depressive disorder Onset Date: 08/22/16 Current Visit: No Status: Acute (4) GERD (gastroesophageal reflux disease) Onset Date: 08/22/16 Current Visit: No Status: Acute (5) Hyperlipidemia Onset Date: 08/22/16 Current Visit: No Status: Acute (6) Hypertension Onset Date: 08/22/16 Current Visit: No Status: Acute - Plan (1) Crohn's regional enteritis Current Visit: Yes Status: Acute Chronic, improving Continue to monitor (2) Partial small bowel obstruction, s/p Exploratory Laparotomy with extensive adhesiolysis -07/10/2023 Current Visit: Yes Status: Acute -Postop Exploratory Laparotomy with extensive adhesiolysis on 07/11/2023 - continue IV antibiotics (Zosyn) -N.p.o. started on Clinimix -Analgesics and antiemetics as needed -Patient was out of bed to chair with PT (3) Depressive disorder Onset Date: 08/22/16 Current Visit: No Status: Acute Chronic, controlled .continue the current medication (4) GERD (gastroesophageal reflux disease) Onset Date: 08/22/16 Current Visit: No Status: Acute Chronic on Protonix 40 mg IV every 12 hours (5) Hyperlipidemia Onset Date: 08/22/16 Current Visit: No Status: Acute Chronic continue home medications (6) Hypertension Chronic, controlled not on any medications now. - Advance Directives Does patient have a Living Will: No Does patient have a Durable POA for Healthcare: No - Code Status/Comfort Care Code Status: Full Code Critical Care: No DVT Prophylaxis: SCDs, Heparin Diet: NPO Plan to discharge in: 72 Hours - Code Status/Comfort Care Code Status Assessed: Yes (code) Code Status: Full Code Physician Review: Patient Assessed, Agree with Above Assessment and Plan Critical Care: No Time Spent Managing PTS Care (In Minutes): 35 (minutes) <Martha Starr - Last Filed: 07/16/23 10:21> Physician Review: Patient Assessed, Agree with Above Assessment and Plan Physician Review Additional Text: He is doing well today. He is passing flatus, but has not had a bowel movement yet. Appreciate Surgery recs regarding diet - he is currently on TPN. Dr. Jimenez to take over as his attending physician tomorrow. <Karthik George - Last Filed: 07/16/23 16:34>
[2023-07-16] MEDS: AA 5%/D20W/ELECTROLYTES-TPN 2,000 ML IV SCH (16:54)
[2023-07-17 03:17] LABS: Absolute Lymphocytes (CBC) 1.9 K/uL (0.7-4.9); Hematocrit 26.7 % (39.6-49.0); Lymphocytes % 15.4 % (15.3-44.8); MCV 90.8 fL (80-100); MPV 6.6 fL (7.6-11.3); Platelets 266 thou/uL (152-406); RBC Red Blood Cell Count 2.95 M/uL (4.33-5.43)
[2023-07-17 03:24] LABS: Magnesium 2.1 mg/dL (1.6-2.4); Phosphorus 3.2 mg/dL (2.5-4.9); Potassium 3.7 mEq/L (3.5-5.1)
[2023-07-17] MEDS ORDERED: KCL 20 MEQ/100 mL IVPB 20 MEQ/100 ML BAG IV SCH (05:00)
[2023-07-17] MEDS: NA CHLORIDE 0.9% 1,000 ML IV SCH ×2 (05:21→14:48)
--- NOTE | 2023-07-17 06:53 | P.PN ---
Subjective Date of Service: 07/17/23 Primary Care Provider: Karthik Odom Chief Complaint: Abdominal pain Subjective: No new changes, NPO, Doing well, Other (Out of bed to chair, passing gas) Abdominal pain controlled with PRN analgesics s/p Exploratory Laparotomy with extensive adhesiolysis -07/10/2023 No compliant of fever tolerating NGT, n.p.o., on Clinimix Review of Systems 10-point ROS is otherwise unremarkable Physical Examination - Vital Signs Temperature: 98.1 F Blood Pressure: 140/98 Pulse: 101 Respirations: 16 Pulse Ox (%): 99 - Physical Exam General: Alert, In no apparent distress, Oriented x3 HEENT: Atraumatic, Normocephalic, PERRLA Neck: Supple, 2+ carotid pulse no bruit, JVD not distended Respiratory: Clear to auscultation bilaterally, Normal air movement Cardiovascular: No edema, Normal pulses, Regular rate/rhythm, Normal S1 S2 Capillary refill: <2 Seconds Gastrointestinal: Hypoactive, No tenderness, Other (Surgical abdominal incision intake with ABD Binder, passing flatus, NGT LIS) Musculoskeletal: No clubbing, No swelling, Other (Midline abdminal incision, CDI) Integumentary: Other Neurological: Normal speech, Normal strength at 5/5 x4 extr (Abdominal dressing clean dry and intact, abdominal binder) - Studies Medications List Reviewed: Yes Assessment And Plan - Plan Assessment/Plan ABD Pain NV acute like secondary SBO-acute Crohn's regional enteritis-acute Partial small bowel obstruction-acute 07/17 OOB, reports passing gas -N.p.o. NGT, started on Clinimix Sliding-scale insulin, Accu-Cheks PRN Analgesics and antiemetics as needed s/p Exploratory Laparotomy with extensive adhesiolysis on 07/11/2023 ([facility]) Follow-up with Dr. Jean at outpatient, Dr. Carvalho Leukocytosis-acute trend WBC, continue IV antibiotics (Zosyn) 07/17 WBCs 12.30, afebrile, heart rate 99, 101 Normocytic anemia acute hemoglobin 10.9, 32.19.0, hematocrit 26.7 Heparin subcu discontinued Depressive disorder chronic controlled Chronic, controlled .continue the current medication GERD (gastroesophageal reflux disease) chronic controlled Chronic on Protonix 40 mg IV every 12 hours Hyperlipidemia chronic controlle Chronic continue home medications Hypertension Chronic, controlled not on any medications now. Code Status: Full Code Diet NPO DVT Prophylaxis: SCDs Discharge Plan: Other ([place] facility) - Code Status/Comfort Care Code Status: Full Code Physician Review: Patient Assessed, Agree with Above Assessment and Plan Critical Care: No Time Spent Managing PTS Care (In Minutes): 35
[2023-07-17] MEDS: INSULIN REGULAR (HUMAN) 100 UNIT/ML SQ SCH ×4 (07:30→21:00)
[2023-07-17] MEDS: PIPER TAZO 3.375 GM in NA CHLORIDE 0.9% 100 ML IV SCH ×2 (08:01→17:02)
[2023-07-17] MEDS: PANTOPRAZOLE 40 MG INJ IVP SCH ×2 (08:02→20:56)
[2023-07-17] MEDS: MORPHINE 2 MG/ML SYR IV PRN ×2 (14:42→20:56)
[2023-07-17] MEDS ORDERED: BISACODYL 10 MG RECTAL SUPP PR ONE (15:00)
[2023-07-17] MEDS: AA 5%/D20W/ELECTROLYTES-TPN 2,000 ML, Lipids 20% 250 ML with MULTIVITAMINS INJ 10 ML IV SCH ×3 (17:03)
[2023-07-18] MEDS: PIPER TAZO 3.375 GM in NA CHLORIDE 0.9% 100 ML IV SCH ×3 (00:43→17:12)
[2023-07-18] MEDS: NA CHLORIDE 0.9% 1,000 ML IV SCH ×3 (00:43→18:06)
[2023-07-18] MEDS: HEPARIN 5000 UNIT/ML 1 ML VIAL SQ SCH ×3 (00:56→17:12)
[2023-07-18 05:45] LABS: Potassium 3.6 mEq/L (3.5-5.1)
[2023-07-18] MEDS: INSULIN REGULAR (HUMAN) 100 UNIT/ML SQ SCH ×4 (07:30→21:00)
[2023-07-18] MEDS ORDERED: POTASSIUM 25 MEQ EFFERV TAB PO ONE (09:00)
[2023-07-18] MEDS: PANTOPRAZOLE 40 MG INJ IVP SCH ×2 (09:15→20:17)
--- NOTE | 2023-07-18 13:19 | P.PN ---
Subjective Date of Service: 07/18/23 Primary Care Provider: Karthik Odom Chief Complaint: Abdominal pain Subjective: Doing well Advancing diet, reports bowel movement today Abdominal pain controlled with PRN analgesics Reports feeling nausea and bloated after p.o. intake today Review of Systems 10-point ROS is otherwise unremarkable Other: - Physical Exam General: Alert, In no apparent distress, Oriented x3 HEENT: Atraumatic, Normocephalic, PERRLA Neck: Supple, 2+ carotid pulse no bruit, JVD not distended Respiratory: Clear to auscultation bilaterally, Normal air movement Cardiovascular: No edema, Normal pulses, Regular rate/rhythm, Normal S1 S2 Capillary refill: <2 Seconds Gastrointestinal: No tenderness, Other (Surgical abdominal incision intake with ABD Binder, passing flatus, bowel movement) Musculoskeletal: No clubbing, No swelling, Other (Midline abdminal incision, CDI) Integumentary: Other Neurological: Normal speech, Normal strength at 5/5 x4 extr Physical Examination - Vital Signs Temperature: 98.1 F Blood Pressure: 155/96 Pulse: 97 Respirations: 18 Pulse Ox (%): 98 - Studies Medications List Reviewed: Yes Assessment And Plan - Plan Assessment/Plan ABD Pain NV acute like secondary SBO-acute Crohn's regional enteritis-acute Partial small bowel obstruction-acute 07/17 OOB, reports passing gas s/p NGT, started on Clinimix Plan to DC NG tube 1031 advance diet Sliding-scale insulin, Accu-Cheks PRN Analgesics and antiemetics as neede s/p Exploratory Laparotomy with extensive adhesiolysis on 07/11/2023 ([facility]) Follow-up with Dr. Jean at outpatient, Dr. Carvalho Leukocytosis-acute trend WBC, continue IV antibiotics (Zosyn) 07/17 WBCs 12.30, afebrile, heart rate 99, 101 Normocytic anemia acute hemoglobin 10.9, 32.19.0, hematocrit 26.7 Heparin subcu discontinued Depressive disorder chronic controlled Chronic, controlled .continue the current medication GERD (gastroesophageal reflux disease) chronic controlled Chronic on Protonix 40 mg IV every 12 hours Hyperlipidemia chronic controlle Chronic continue home medications Hypertension Chronic, controlled not on any medications now. Code Status: Full Code Diet NPO DVT Prophylaxis: SCDs Discharge Plan: Other (Transition facility) Physician Review: Patient Assessed, Agree with Above Assessment and Plan Critical Care: No Time Spent Managing PTS Care (In Minutes): 35
[2023-07-18] MEDS ORDERED: METOPROLOL TAR 25 MG TAB PO ONE (14:30)
[2023-07-18] MEDS: METOPROLOL TAR 25 MG TAB PO SCH (17:12)
[2023-07-19] MEDS: PIPER TAZO 3.375 GM in NA CHLORIDE 0.9% 100 ML IV SCH ×3 (00:28→17:00)
[2023-07-19] MEDS: HEPARIN 5000 UNIT/ML 1 ML VIAL SQ SCH ×3 (00:28→17:00)
[2023-07-19] MEDS: NA CHLORIDE 0.9% 1,000 ML IV SCH ×2 (03:52→12:04)
[2023-07-19 05:22] LABS: Potassium 3.6 mEq/L (3.5-5.1)
[2023-07-19] MEDS: METOPROLOL TAR 25 MG TAB PO SCH ×2 (06:09→18:00)
[2023-07-19] MEDS: INSULIN REGULAR (HUMAN) 100 UNIT/ML SQ SCH ×3 (07:30→16:30)
[2023-07-19] MEDS ORDERED: POTASSIUM 25 MEQ EFFERV TAB PO ONE (09:00)
[2023-07-19 09:32] VITALS: O2SAT 98
[2023-07-19] MEDS: PANTOPRAZOLE 40 MG INJ IVP SCH (09:43)
--- NOTE | 2023-07-19 15:26 | P.DS ---
Admission Date: 07/08/23 Discharge Date: 07/19/23 Primary Care Provider: Karthik Odom Disposition: ROUTINE DISCHARGE Discharge Condition: GOOD Reason for Admission: Abdominal pain Brief History of Present Illness: 58-year-old gentleman came to the hospital with intractable abdominal pain and nausea and vomiting. He was given antiemetics and IV fluids in the emergency room and he is clinically feeling better. He is status post CT scan which showed a PillCam that was passed stool. Patient has a history of Crohn's disease. Patient's imaging scans show a possible ileus versus partial small bowel obstruction. Patient was admitted with small bowel obstruction, with partial resection. Postop NG tube on Clinimix for IV hydration. After passing flatus, diet advanced, NG tube discontinued. Patient is ambulating in the hallway independently. Midline postop incision clean dry and intact. Patient educated on signs and symptoms of postop infection. Pain controlled with IV and p.o. medications. Patient is tolerating diet with stools and voiding without difficulties. Physical Exam General: Alert, In no apparent distress, Oriented x3 HEENT: Atraumatic, Normocephalic, PERRLA Neck: Supple, 2+ carotid pulse no bruit, JVD not distended Respiratory: Clear to auscultation bilaterally, Normal air movement Cardiovascular: No edema, Normal pulses, Regular rate/rhythm, Normal S1 S2 Capillary refill: <2 Seconds Gastrointestinal: No tenderness, Other (Surgical abdominal incision intake with ABD Binder, passing flatus, bowel movement) Musculoskeletal: No clubbing, No swelling, Other (Midline abdminal incision, CDI) Integumentary: Other Neurological: Normal speech, Normal strength at 5/5 x4 extr Hospital Course: Mr. Iglesias is status post abdominal pain with small bowel obstruction acute, partial bowel resection Dr. Jean. Tolerating p.o. diet, voiding and stooling independently. Pain controlled. Exploratory Laparotomy with extensive adhesiolysis on 07/11/2023 ([facility]) patient to follow-up with follow-up with Dr. Jean at outpatient, Dr. Carvalho after discharge. [facility] reported to [facility]. Pain controlled with p.o. medications Vital Signs/Physical Exam: Temp Pulse Resp BP Pulse Ox 98.1 F 81 16 135/93 H 98 07/19/23 12:00 07/19/23 12:00 07/19/23 12:00 07/19/23 12:00 07/19/23 12:00 Laboratory Data at Discharge: WBC 12.30 thou/uL (4.3-10.9) H 07/17/23 02:40 Hgb 9.0 g/dL (13.6-17.9) L 07/17/23 02:40 Hct 26.7 % (39.6-49.0) L 07/17/23 02:40 Plt Count 266 thou/uL (152-406) 07/17/23 02:40 Sodium 143 mEq/L (136-145) 07/19/23 05:00 Potassium 3.6 mEq/L (3.5-5.1) 07/19/23 05:00 BUN 9 mg/dL (7-18) 07/19/23 05:00 Creatinine 0.79 mg/dL (0.70-1.30) 07/19/23 05:00 Glucose 90 mg/dL (74-106) 07/19/23 05:00 Phosphorus 3.2 mg/dL (2.5-4.9) 07/17/23 02:40 Magnesium 2.1 mg/dL (1.6-2.4) 07/17/23 02:40 Total Bilirubin 0.2 mg/dL (0.2-1.0) 07/07/23 12:13 AST 9 U/L (15-37) L 07/07/23 12:13 ALT 18 U/L (16-61) 07/07/23 12:13 Alkaline Phosphatase 88 U/L (45-117) 07/07/23 12:13 Lipase 20 U/L (13-75) 07/06/23 11:19 Home Medications: Alprazolam [Xanax] 2 mg PO TID 08/05/16 Gabapentin [Neurontin] 800 mg PO TID 08/05/16 Montelukast Sodium [Singulair] 10 mg PO DAILY 08/05/16 Paroxetine HCl [Paxil] 20 mg PO DAILY 08/05/16 Spironolactone [Aldactone] 25 mg PO DAILY #30 tablet 08/10/16 Magnesium Oxide [Mag 0X*] 400 mg PO DAILY 08/19/16 Amox/Clavulanate [Augmentin 875-125 Tab] 875 mg PO BID #10 tab 07/19/23 Metoprolol Tartrate [Lopressor*] 25 mg PO BID 6AM 6PM #60 tab 07/19/23 Pantoprazole Sodium [Protonix] 40 mg PO DAILY #30 tab 07/19/23 Pantoprazole [Protonix Tab] 40 mg PO DAILY #30 tab 07/19/23 New Medications: Amox/Clavulanate [Augmentin 875-125 Tab] 875 mg PO BID #10 tab Metoprolol Tartrate [Lopressor*] 25 mg PO BID 6AM 6PM #60 tab Pantoprazole Sodium [Protonix] 40 mg PO DAILY #30 tab Pantoprazole [Protonix Tab] 40 mg PO DAILY #30 tab Physician Discharge Instructions: -DC IV and DC home -Follow-up with PCP in 1 to 2 weeks -Follow-up with Surgery, Dr. Jean, in 1 to 2 weeks -Follow-up with GI, Dr. Simmons,, in 1 to 2 weeks -Please call Dr. Jimenez at [phone] if any questions regarding hospital stay -Please call nursing station at [phone] if any nursing or medication questions -Return to the emergency room if symptoms worsen Diet: AHA Activity: Weight bearing as tolerated Followup: Dany Jean MD [ACTIVE - CAN ADMIT] - Bhargav Hawley MD [Primary Care Provider] -
[2023-07-19 16:15] VITALS: BP 144/90; TEMP 98.2
--- NOTE | 2023-07-21 06:36 | P.PN ---
Subjective Date of Service: 07/21/23 Primary Care Provider: Karthik Odom Chief Complaint: Abdominal pain Subjective: No new changes Advancing diet, reports bowel movement today Abdominal pain controlled with PRN analgesics Reports feeling nausea and bloated after p.o. intake today Review of Systems 10-point ROS is otherwise unremarkable Physical Examination - Vital Signs Temperature: 98.2 F Blood Pressure: 144/90 Pulse: 85 Respirations: 16 Pulse Ox (%): 99 - Studies Medications List Reviewed: Yes Assessment And Plan - Plan Assessment/Plan ABD Pain NV acute like secondary SBO-acute Crohn's regional enteritis-acute Partial small bowel obstruction-acute 07/17 OOB, reports passing gas s/p NGT, started on Clinimix Plan to DC NG tube 1031 advance diet Sliding-scale insulin, Accu-Cheks PRN Analgesics and antiemetics as neede s/p Exploratory Laparotomy with extensive adhesiolysis on 07/11/2023 ([facility]) Follow-up with Dr. Jean at outpatient, Dr. Carvalho Leukocytosis-acute trend WBC, continue IV antibiotics (Zosyn) 07/17 WBCs 12.30, afebrile, heart rate 99, 101 Normocytic anemia acute hemoglobin 10.9, 32.19.0, hematocrit 26.7 Heparin subcu discontinued Depressive disorder chronic controlled Chronic, controlled .continue the current medication GERD (gastroesophageal reflux disease) chronic controlled Chronic on Protonix 40 mg IV every 12 hours Hyperlipidemia chronic controlle Chronic continue home medications Hypertension Chronic, controlled not on any medications now. Code Status: Full Code Diet NPO DVT Prophylaxis: SCDs Discharge Plan: Halfway - Code Status/Comfort Care Code Status: Full Code Physician Review: Patient Assessed, Agree with Above Assessment and Plan Critical Care: No Time Spent Managing PTS Care (In Minutes): 35
== END 2023-07-19 18:58 | disposition home or self-care (01) | DRG 331 ==
LOC: ER 11:02 → ERHOLD 13:54 → 2ND 16:13 → OBSVTOIN 07-08 17:33
PROVIDERS: ADMIT Hospitalist; ATTEND Hospitalist
PROC: 0DNU0ZZ Release Omentum, Open Approach (ICD-10-PCS; 2023-07-10)
PROC: 0DB80ZZ Excision of Small Intestine, Open Approach (ICD-10-PCS; 2023-07-10)
PROC: 3E0336Z Introduction of Nutritional Substance into Peripheral Vein, Percutaneous Approach (ICD-10-PCS; 2023-07-10)
PROC: 0DH67UZ Insertion of Feeding Device into Stomach, Via Natural or Artificial Opening (ICD-10-PCS; 2023-07-10)
PROC: 0DB80ZZ Excision of Small Intestine, Open Approach (ICD-10-PCS; principal; 2023-07-10 15:00)
PROC: 02HV33Z Insertion of Infusion Device into Superior Vena Cava, Percutaneous Approach (ICD-10-PCS; 2023-07-12)
DX: K50.012 Crohn's disease of small intestine with intestinal obstruction (principal); I10 Essential (primary) hypertension; E11.9 Type 2 diabetes mellitus without complications; E78.5 Hyperlipidemia, unspecified; F32.A Depression, unspecified; K52.9 Noninfective gastroenteritis and colitis, unspecified; K21.9 Gastro-esophageal reflux disease without esophagitis; T47.8X6A Underdosing of other agents primarily affecting gastrointestinal system, initial encounter; Z79.01 Long term (current) use of anticoagulants; Z90.49 Acquired absence of other specified parts of digestive tract; Z91.138 Patient's unintentional underdosing of medication regimen for other reason; Z91.148 Patient's other noncompliance with medication regimen for other reason; Z91.018 Allergy to other foods; Z79.899 Other long term (current) drug therapy
CPT/HCPCS: 36415; 71045; 74018; 74177; 80048; 80053; 81001; 82947; 83690; 83735; 84100; 84132; 84145; 85025; 86140; 86850; 86900; 86901; 88300; 88305; 88307; 94010; 94760; 96365; 96375; 97116; 97161; 97530; 99285; C9113; G0378; J1100; J1160; J1170; J1644; J2001; J2250; J2270; J2405; J2543; J2704; J2710; J2920; J3010; J3480; J7030; J7050; Q9967

== ENCOUNTER 2024-02-28 01:45 | Emergency (ER) | payer OTHER ==
--- OUTSIDE RECORDS SUMMARY | 2024-02-28 01:49 | XMS REPORT | Continuity of Care Document ---
Author Name Unknown Address [address] [facility] [address] [place] [address] [facility] thconnect Address [address] [facility] 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 Name Role Phone ANGEL TIWARI Primary Care Physician Unavaila DEEJAY Ceja Attending Clinician Unavailable KADIE CONTRERAS Attending Clinician Unavailab GRISELDA Ortiz Attending Clinician Unavailab RICH Soriano Attending Clinician Unavailable MD SONDRA Attending Clinician Unavailab rohan LAB90 Attending Clinician Unavailable BRENTON SHI Attending Clinician UnaKIERRA Yousif Attending Clinician UnavailKierra Vallejo MD Attending Clinician [phone] Yariel_A Attending Clinician Unavailable Halle Cruz Attending Clinician Unavailable ARIEL SALDIVAR Attending Clinician Unavailable Parker Mina Attending Clinician Unavailab Denise Villalpando Attending Clinician UnavailShira Cunningham Attending Clinician Unavailable Jacy Jimenez Attending Clinician Unavailable ANITA MONTANEZ Attending Clinician Unavailable Zuniga_F Attending Clinician Unavailable JORGE A FRANCO Attending Clinician Unavailable TROY ROJAS Attending Clinician Unavailable KIERRA BAUTISTA Admitting Clinician Unavailelijah Saldivar_Alfredo Admitting Clinician Unavailable Jacy Jimenez Admitting Clinician Unavailable Zuniga_F Admitting Clinician Unavailable Payers Payer Name Policy Type Policy Number Effective Date Expirati on Date Source [employer] H[employer] 15 [id number] 2024 00:00:00 MEDICARE-PART B 5 [id number] 2023 00:00:00 [employer] H[employer] 7 [id number] 2023 00:00:00 WELLCARE DUAL ACCESS OPEN PPO [id number] 2022 00:00:00 MEDICAID [facility] [id number] 2022 00:00:00 [facility] (MEDICARE REPLACEMENT/ADVANTA GE - HMO) [id number] 2021 00:00:00 [place] [facility] (INSTITUTIONAL) [id number] [facility] (MEDICARE REPLACEMENT/ADVANTA GE - PPO) [id number] [place] [id number] [facility] (MEDICARE REPLACEMENT/ADVANTA GE - HMO) [id number] 2021 00:00:00 [employer] (MEDICARE REPLACEMENT/ADVANTA GE - PPO) [id number] Problems Condition Name Condition Details Condition Category Status Onset Date Resolution Date Last Treatment Date Treating Clinician Comments Source [facility] adult exam Well adult exam Disease Active 2022-09 00:00: 00 Ivelisse Sarah - Externa l HTN (hypertens ion) HTN (hypertens ion) Disease Active 2022-09 00:00: 00 Ivelisse Whitley Externa l Type 2 diabetes mellitus without complicati on, without long-term current use of insulin (multi HCC) Type 2 diabetes mellitus without complicati on, without long-term current use of insulin (multi HCC) Disease Active 2022-09 00:00: 00 Ivelisse Whitley Externa chris Immunodefi ciency due to conditions classified elsewhere (multi HCC) Immunodefi ciency due to conditions classified elsewhere (multi HCC) Disease Active 2022-09 00:00: 00 Ivelisse Sarah - Externa l Crohn disease (multi HCC) Crohn disease (multi HCC) Disease Active 2022-09 00:00: 00 Ivelisse Whitley Externa l Hyperlipid emia Hyperlipid emia Problem Active 03-30 00:00: 00 [facility] Benign essential hypertensi on Benign Essential Hypertensi on Problem Active 03-30 00:00: 00 [facility] Mixed anxiety and depressive disorder Mixed Anxiety and Depressive Disorder Problem Active -16 00:00: 00 [facility] Gastro-eso phageal reflux disease with esophagiti s Gastro-eso phageal Reflux Disease with Esophagiti s Problem Active 10-18 00:00: 00 [facility] Crohn's disease of colon Crohn's Disease of Colon Problem Active 10-18 00:00: 00 [facility] Hyperchole sterolemia Hyperchole sterolemia Problem Active 2020-09 00:00: 00 [facility] Hypertensi ve disorder Hypertensi ve Disorder Problem Active 2020-09 00:00: 00 [facility] No known active problems No known active problems Disease [facility] Allergies, Adverse Reactions, Alerts Allergy Name Allergy Type Status Severity Reaction(s) Onset Date Inactive Date Treating Clinician Comments Source NO KNOWN ALLERGIE S Drug Class Active [facility] Social History Social Habit Start Date Stop Date Quantity Comments Source Sexual orientation Zulema larry Tyrel - External Alcohol intake 2023-08-31 00:00:00 2023-08-31 00:00:00 Lifetime non-drinker (finding) Ivelisse Sarah - External History of Social function 2023-08-22 00:00:00 2023-08-22 00:00:00 Ivelisse Sarah - External Exposure to SARS-CoV-2 (event) 2022-07-23 00:00:00 2022-08-02 02:07:00 Not sure [facility] Sex Assigned At 1965 00:00:00 1965 00:00:00 Ivelisse Sarah - External Smoking Status Start Date Stop Date Source Current Every Day Smoker [facility] Tobacco smoking consumption unknown [facility] Never smoked tobacco Ivelisse Sarah - External Medications Ordered Medication Name Filled Medication Name Start Date Stop Date Current Medication? Ordering Clinician Indication Dosage Frequency Signature (SIG) Comments Components Source Mesalamine 1.2 g oral Tablet Delayed Response 2022-09 14:34: 57 Yes 3.6g Take 3 tablets (3.6 g total) by mouth daily. Ivelisse perez Ondansetron (ZOFRAN) 4 MG oral TABLET DISPERSIBLE 2022-09 14:34: 57 Yes ondansetro n 4 mg dis[address] ting tablet PL[address] 1 TABLET ON TONGUE AND ALLOW TO DISSOLVE THREE TIMES A DAY FOR NAUSEA Ivelisse perez Gabapentin 600 MG oral Tablet 2022-09 00:00: 00 Yes [id number] 600mg Take 1 tablet (600 mg total) by mouth 3 times daily. Ivelisse perez Duloxetine HCl [address] Particles 2022-09 00:00: 00 Yes [id number] 30mg Take 1 capsule (30 mg total) by mouth daily. Ivelisse perez Meloxicam 15 MG oral Tablet 2022-09 00:00: 00 10-16 05:59 :00 No [id number] 15mg Take 1 tablet (15 mg total) by mouth daily. Ivelisse perez Amlodipine Besylate 10 MG oral Tablet 2022-09 00:00: 00 Yes [id number] 10mg Take 1 tablet (10 mg total) by mouth daily. Ivelisse perez Cyclobenzap rine HCl 10 MG oral Tablet 2022-09 00:00: 00 Yes [id number] 10mg Q.5D Take 1 tablet (10 mg total) by mouth 2 times daily as needed No driving on medication . Ivelisse perez hydrOXYzine HCl 25 MG oral Tablet 2022-09 00:00: 00 Yes [id number] 25mg QD Take 1 tablet (25 mg total) by mouth daily as needed. Ivelisse perez Metformin HCl 500 MG oral Tablet 2022-09 00:00: 00 Yes [id number] 500mg Take 1 tablet (500 mg total) by mouth every morning. Ivelisse perez Gabapentin 800 MG oral Tablet 2022-09 00:00: 00 08-31 00:00 :00 No [id number] 800mg Take 1 tablet (800 mg total) by mouth 2 times daily No driving on medication . Ivelisse perez Tadalafil 10 MG oral Tablet 2022-09 00:00: 00 Yes TAKE 1 TABLET BY MOUTH 1 HOUR BEFORE SEXUAL ACTIVITY Ivelisse perez hydrOXYzine HCl 25 MG oral Tablet 2022-09 10:53: 45 Yes 25mg QD Take 1 tablet (25 mg total) by mouth daily as needed. Ivelisse perez Mesalamine 1.2 g oral Tablet Delayed Response 2022-09 10:53: 45 Yes 3.6g Take 3 tablets (3.6 g total) by mouth daily. Ivelisse perez Ondansetron (ZOFRAN) 4 MG oral TABLET DISPERSIBLE 2022-09 10:53: 45 Yes ondansetro n 4 mg disintegra ting tablet PLACE 1 TABLET ON TONGUE AND ALLOW TO DISSOLVE THREE TIMES A DAY FOR NAUSEA Ivelisse perez Pantoprazol e Sodium 40 MG oral Tablet Delayed Response 2022-09 10:53: 45 08-22 00:00 :00 No 40mg Take 1 tablet (40 mg total) by mouth daily. Ivelisse perez Amoxicillin -Pot Clavulanate 875-125 MG oral Tablet 2022-09 10:52: 26 08-22 00:00 :00 No 1{tbl} Take 1 tablet by mouth 2 times daily. Ivelisse perez hydrOXYzine HCl 25 MG oral Tablet 2022-09 14:26: 42 Yes 25mg QD Take 1 tablet (25 mg total) by mouth daily as needed. Ivelisse perez Mesalamine 1.2 g oral Tablet Delayed Response 2022-09 14:26: 42 Yes 3.6g Take 3 tablets (3.6 g total) by mouth daily. Ivelisse perez Ondansetron (ZOFRAN) 4 MG oral TABLET DISPERSIBLE 2022-09 14:26: 42 Yes ondansetro n 4 mg disintegra ting tablet PLACE 1 TABLET ON TONGUE AND ALLOW TO DISSOLVE THREE TIMES A DAY FOR NAUSEA Ivelisse perez Pantoprazol e Sodium 40 MG oral Tablet Delayed Response 2022-09 14:26: 42 Yes 40mg Take 1 tablet (40 mg total) by mouth daily. Ivelisse perez Amoxicillin -Pot Clavulanate 875-125 MG oral Tablet 2022-09 14:26: 42 Yes 1{tbl} Take 1 tablet by mouth 2 times daily. Ivelisse perez Pantoprazol e Sodium 20 MG oral Tablet Delayed Response 2022-09 00:00: 00 Yes 40mg 2 tablets (40 mg total). Ivelisse perez Metoprolol Tartrate (LOPRESSOR) 25 MG oral Tablet 2022-09 00:00: 00 Yes 25mg 1 tablet (25 mg total). Ivelisse perez HYDROcodone -Acetaminop hen 10-325 MG oral Tablet 2022-09 0-02 00:00: 00 Yes 1{tbl} Take 1 tablet by mouth 2 times daily. Ivelisse perez Gemfibrozil 600 MG oral Tablet - 00:00: 00 Yes 600mg Take 1 tablet (600 mg total) by mouth daily as directed. Ivelisse perez Cyclobenzap rine HCl 10 MG oral Tablet 06-09 00:00: 00 Yes 10mg Q.5D Take 1 tablet (10 mg total) by mouth 2 times daily as needed. Ivelisse perez Vitamin D, Ergocalcife rol, 1.25 MG (42299 UT) oral Capsule 9-09 00:00: 00 Yes [id number] Take 1 capsule (50,000 units total) by mouth once a week. Ivelisse perez OneTouch Ultra in vitro Strip 30 00:00: 00 Yes 2 times daily. Ivelisse perez Lancets (OneTouch Delica Plus [id number]) does not apply Misc 05-15 00:00: 00 Yes 2 times daily. Ivelisse perez Lancets (OneTouch Delica Plus [id number]) does not apply Misc 05-15 00:00: 00 Yes 2 times daily. Ivelisse perez Amlodipine Besylate 10 MG oral Tablet 04-24 00:00: 00 Yes 10mg Take 1 tablet (10 mg total) by mouth daily. Ivelisse perez Amitriptyli ne HCl 25 MG oral Tablet 04-24 00:00: 00 08-31 00:00 :00 No 25mg Take 1 tablet (25 mg total) by mouth nightly. Ivleisse perez Metformin HCl 500 MG oral Tablet 7-11 00:00: 00 Yes 500mg Take 1 tablet (500 mg total) by mouth every morning. Ivelisse perez Atorvastati n Calcium 20 MG oral Tablet 6-29 00:00: 00 Yes 20mg Take 1 tablet (20 mg total) by mouth every evening. Ivelisse perez iopamidol (ISOVUE 370-500 mL) injection 75 mL 2021-09 10:15: 00 08-02 10:15 :00 No [id number] 75mL 75 mL, Intravenou s, ONCE, 1 dose, On Mon08/02/22 at 0415, Routine [facility] ondansetron (ZOFRAN) 4 mg tablet 2021-09 00:00: 00 Yes [id number] 4mg Take 1 tablet by mouth every 8 (eight) hours as needed for Nausea and Vomiting (N/V). [facility] albuterol sulfate HFA 90 mcg/actuati on aerosol inhaler INHALE TWO (2) PUFFS BY MOUTH EVERY 4 TO 6 HOURS. albuterol sulfate HFA 90 mcg/actuati on aerosol inhaler INHALE TWO (2) PUFFS BY MOUTH EVERY 4 TO 6 HOURS. No albuterol sulfate HFA 90 mcg/actuat ion aerosol inhaler INHALE TWO (2) PUFFS BY MOUTH EVERY 4 TO 6 HOURS. [facility] cyanocobala min (vit B-12) 1,000 mcg/mL injection solution Inject 1 mL every month by subcutaneou s route. cyanocobala min (vit B-12) 1,000 mcg/mL injection solution Inject 1 mL every month by subcutaneou s route. No 1mL cyanocobal perez (vit B-12) 1,000 mcg/mL injection solution Inject 1 mL every month by subcutaneo us route. [facility] famotidine 40 mg tablet TAKE 1 TABLET BY MOUTH ONCE DAILY IN THE EVENING famotidine 40 mg tablet TAKE 1 TABLET BY MOUTH ONCE DAILY IN THE EVENING No famotidine 40 mg tablet TAKE 1 TABLET BY MOUTH ONCE DAILY IN THE EVENING [facility] gabapentin 600 mg tablet Take 0.5 tablets twice a day by oral route for 30 days. gabapentin 600 mg tablet Take 0.5 tablets twice a day by oral route for 30 days. No .5 BID gabapentin 600 mg tablet Take 0.5 tablets twice a day by oral route for 30 days. [facility] ibuprofen 800 mg tablet ibuprofen 800 mg tablet No ibuprofen 800 mg tablet [facility] Medrol (Vignesh) 4 mg tablets in a dose pack Take 1 dose pk every day by oral route. Medrol (Vignesh) 4 mg tablets in a dose pack Take 1 dose pk every day by oral route. No 1dose pk(s) Q1D Medrol (Vignesh) 4 mg tablets in a dose pack Take 1 dose pk every day by oral route. [facility] metronidazo le 500 mg tablet TAKE ONE (1) TABLET(S) BY MOUTH THREE TIMES A DAY. metronidazo le 500 mg tablet TAKE ONE (1) TABLET(S) BY MOUTH THREE TIMES A DAY. No metronidaz ole 500 mg tablet TAKE ONE (1) TABLET(S) BY MOUTH THREE TIMES A DAY. [facility] Mobic 15 mg tablet Take 1 tablet every day by oral route for 7 days. Mobic 15 mg tablet Take 1 tablet every day by oral route for 7 days. No 1 Q1D Mobic 15 mg tablet Take 1 tablet every day by oral route for 7 days. [facility] montelukast 10 mg tablet TAKE 1 TABLET BY MOUTH EVERY DAY montelukast 10 mg tablet TAKE 1 TABLET BY MOUTH EVERY DAY No montelukas t 10 mg tablet TAKE 1 TABLET BY MOUTH EVERY DAY [facility] mupirocin 2 % topical ointment APPLY A SMALL AMOUNT TO THE AFFECTED AREA BY TOPICAL ROUTE 3 TIMES PER DAY mupirocin 2 % topical ointment APPLY A SMALL AMOUNT TO THE AFFECTED AREA BY TOPICAL ROUTE 3 TIMES PER DAY No mupirocin 2 % topical ointment APPLY A SMALL AMOUNT TO THE AFFECTED AREA BY TOPICAL ROUTE 3 TIMES PER DAY [facility] omeprazole 40 mg capsule,del ayed release TAKE 1 CAPSULE BY MOUTH ONCE DAILY BEFORE A MEAL omeprazole 40 mg capsule,del ayed release TAKE 1 CAPSULE BY MOUTH ONCE DAILY BEFORE A MEAL No omeprazole 40 mg capsule,de layed release TAKE 1 CAPSULE BY MOUTH ONCE DAILY BEFORE A MEAL [facility] paroxetine 20 mg tablet Take 1 tablet by mouth once daily paroxetine 20 mg tablet Take 1 tablet by mouth once daily No paroxetine 20 mg tablet Take 1 tablet by mouth once daily [facility] propranolol 20 mg tablet TAKE ONE (1) TABLET(S) BY MOUTH TWICE A DAY. propranolol 20 mg tablet TAKE ONE (1) TABLET(S) BY MOUTH TWICE A DAY. No propranolo l 20 mg tablet TAKE ONE (1) TABLET(S) BY MOUTH TWICE A DAY. [facility] tramadol 50 mg tablet TAKE 1 TABLET EVERY 6 HOURS BY ORAL ROUTE NEEDED. as needed for pain tramadol 50 mg tablet TAKE 1 TABLET EVERY 6 HOURS BY ORAL ROUTE NEEDED. as needed for pain No tramadol 50 mg tablet TAKE 1 TABLET EVERY 6 HOURS BY ORAL ROUTE NEEDED. as needed for pain [facility] Immunizations Ordered Immunization Name Filled Immunization Name Date Status Comments Source Influenza vaccine, quadrivalent, adjuvanted Influenza vaccine, quadrivalent, adjuvanted 2021-08-05 12:11:00 Completed [facility] COVID-19 Vaccine(Pfizer)([facility] 2022)(12yrs+) Unknown Completed Ivelisse Aminybo ld - External Influenza vaccine, quadrivalent, adjuvanted, 65+ Unknown Completed Ivelisse Aminybo ld - External Pneumococcal Vaccine, Conjugate 20 Unknown Completed Ivelisse Seybold - External Shingles IM (Shingrix) Unknown Completed Ivelisse Seybold - External Shingles IM (Shingrix) Unknown Completed Ivelisse Seybold - External COVID-19 Vaccine(Pfizer)([facility] 2022)(12yrs+) Unknown Completed Ivelisse Seybo ld - External Influenza vaccine, quadrivalent, adjuvanted, 65+ Unknown Completed Ivelisse Seybo ld - External Pneumococcal Vaccine, Conjugate 20 Unknown Completed Ivelisse Seybold - External Shingles IM (Shingrix) Unknown Completed Ivelisse Seybold - External Shingles IM (Shingrix) Unknown Completed Ivelisse Seybold - External COVID-19 Vaccine(Pfizer)([facility] 2022)(12yrs+) Unknown Completed Ivelisse Aminybo ld - External Influenza vaccine, quadrivalent, adjuvanted, 65+ Unknown Completed Ivelisse Seybo ld - External Pneumococcal Vaccine, Conjugate 20 Unknown Completed Ivelisse Seybold - External Shingles IM (Shingrix) Unknown Completed Ivelisse Seybold - External Shingles IM (Shingrix) Unknown Completed Ivelisse Seybold - External Vital Signs Vital Name Observation Time Observation Value Comments S cameliadaniela Systolic blood pressure 2023-08-31 20:31:00 112 mm[Hg] Ivelisse Johnsono ld - External Diastolic blood pressure 2023-08-31 20:31:00 77 mm[Hg] Ivelisse Johnsono ld - External Heart rate 2023-08-31 20:31:00 83 /min Gusse gill Seybold - External Respiratory rate 2023-08-31 20:31:00 18 /min Ivelisse Aminybold - External Body height 2023-08-31 20:31:00 160 cm Lissa jauregui Seybold - External Body weight 2023-08-31 20:31:00 73.483 kg Lissa ey Seybold - External BMI 2023-08-31 20:31:00 28.70 kg/m2 Lissa ey Seybold - External Oxygen saturation in Arterial blood by Pulse oximetry 2023-08-31 20:31:00 99 /min Ivelisse Aminybo ld - External Systolic blood pressure 2023-08-22 16:50:00 122 mm[Hg] Ivelisse Seybo ld - External Diastolic blood pressure 2023-08-22 16:50:00 68 mm[Hg] Ivelisse Seybo ld - External Heart rate 2023-08-22 16:50:00 72 /min Kelse y Seybold - External Body temperature 2023-08-22 16:50:00 36.89 Blanca Ivelisse Seybold - External Respiratory rate 2023-08-22 16:50:00 16 /min Ivelisse Seybold - External Body height 2023-08-22 16:50:00 160 cm Lissa ey Seybold - External Body weight 2023-08-22 16:50:00 70.534 kg Lissa ey Seybold - External BMI 2023-08-22 16:50:00 27.55 kg/m2 Lissa ey Seybold - External Oxygen saturation in Arterial blood by Pulse oximetry 2023-08-22 16:50:00 98 /min Ivelisse Aminybo ld - External Systolic blood pressure 2023-08-08 20:15:00 100 mm[Hg] Ivelisse Seybo ld - External Diastolic blood pressure 2023-08-08 20:15:00 72 mm[Hg] Ivelisse Seybo ld - External Heart rate 2023-08-08 20:15:00 87 /min Gusse y Seybold - External Body temperature 2023-08-08 20:15:00 36.83 Blanca Ivelisse Seybold - External Respiratory rate 2023-08-08 20:15:00 15 /min Ivelisse Seybold - External Body height 2023-08-08 20:15:00 160 cm Lissa ey Seybold - External Body weight 2023-08-08 20:15:00 68.947 kg Lissa ey Seybold - External BMI 2023-08-08 20:15:00 26.93 kg/m2 Lissa ey Seybold - External Heart rate 2022-08-02 11:30:00 93 /min [facility] Oxygen saturation in Arterial blood by Pulse oximetry 2022-08-02 11:30:00 96 /min [facility] Systolic blood pressure 2022-08-02 11:00:00 134 mm[Hg] [facility] Diastolic blood pressure 2022-08-02 11:00:00 97 mm[Hg] [facility] Respiratory rate 2022-08-02 11:00:00 21 /min [facility] Body temperature 2022-08-02 08:11:00 36.56 Blanca [facility] Body height 2022-08-02 08:11:00 160 cm [facility] Body weight 2022-08-02 08:11:00 79.379 kg [facility] BMI 2022-08-02 08:11:00 31.00 kg/m2 [facility] BP Diastolic 2022-05-05 00:00:00 89 mm[Hg] [facility] Height 2022-05-05 00:00:00 68 [in_i] [facility] BMI (Body Mass Index) 2022-05-05 00:00:00 27.5 kg/m2 [facility] BP Systolic 2022-05-05 00:00:00 132 mm[Hg] [facility] Body Weight 2022-05-05 00:00:00 2891.2 [oz_av] [facility] BP Diastolic 2022-04-27 00:00:00 96 mm[Hg] [facility] Height 2022-04-27 00:00:00 68 [in_i] [facility] BMI (Body Mass Index) 2022-04-27 00:00:00 26.5 kg/m2 [facility] BP Systolic 2022-04-27 00:00:00 131 mm[Hg] [facility] Body Weight 2022-04-27 00:00:00 2792 [oz_av] [facility] BP Diastolic 2022-03-30 00:00:00 67 mm[Hg] [facility] Height 2022-03-30 00:00:00 68 [in_i] [facility] BMI (Body Mass Index) 2022-03-30 00:00:00 26.5 kg/m2 [facility] BP Systolic 2022-03-30 00:00:00 106 mm[Hg] [facility] Body Weight 2022-03-30 00:00:00 2784 [oz_av] [facility] BP Diastolic 2022-02-28 00:00:00 93 mm[Hg] [facility] Height 2022-02-28 00:00:00 68 [in_i] [facility] BMI (Body Mass Index) 2022-02-28 00:00:00 26.5 kg/m2 [facility] BP Systolic 2022-02-28 00:00:00 132 mm[Hg] [facility] Body Weight 2022-02-28 00:00:00 2784 [oz_av] [facility] BP Diastolic 2022-01-31 00:00:00 92 mm[Hg] [facility] Height 2022-01-31 00:00:00 68 [in_i] [facility] BMI (Body Mass Index) 2022-01-31 00:00:00 26.8 kg/m2 [facility] BP Systolic 2022-01-31 00:00:00 128 mm[Hg] [facility] Body Weight 2022-01-31 00:00:00 2816 [oz_av] [facility] BP Diastolic 2022-01-03 00:00:00 87 mm[Hg] [facility] Height 2022-01-03 00:00:00 68 [in_i] [facility] BMI (Body Mass Index) 2022-01-03 00:00:00 26.8 kg/m2 [facility] BP Systolic 2022-01-03 00:00:00 124 mm[Hg] [facility] Body Weight 2022-01-03 00:00:00 2816 [oz_av] [facility] BP Diastolic 2021-12-06 00:00:00 85 mm[Hg] [facility] Height 2021-12-06 00:00:00 68 [in_i] [facility] BMI (Body Mass Index) 2021-12-06 00:00:00 27.4 kg/m2 [facility] BP Systolic 2021-12-06 00:00:00 131 mm[Hg] [facility] Body Weight 2021-12-06 00:00:00 2887 [oz_av] [facility] BP Diastolic 2021-11-18 00:00:00 85 mm[Hg] [facility] Height 2021-11-18 00:00:00 68 [in_i] [facility] BMI (Body Mass Index) 2021-11-18 00:00:00 27.4 kg/m2 [facility] BP Systolic 2021-11-18 00:00:00 133 mm[Hg] [facility] Body Weight 2021-11-18 00:00:00 2880 [oz_av] [facility] BP Diastolic 2021-10-05 00:00:00 89 mm[Hg] [facility] Height 2021-10-05 00:00:00 68 [in_i] [facility] BMI (Body Mass Index) 2021-10-05 00:00:00 27.7 kg/m2 [facility] BP Systolic 2021-10-05 00:00:00 124 mm[Hg] [facility] Body Weight 2021-10-05 00:00:00 2912 [oz_av] [facility] BP Diastolic 2021-08-24 00:00:00 78 mm[Hg] [facility] Height 2021-08-24 00:00:00 68 [in_i] [facility] BMI (Body Mass Index) 2021-08-24 00:00:00 28.6 kg/m2 [facility] BP Systolic 2021-08-24 00:00:00 122 mm[Hg] [facility] Body Weight 2021-08-24 00:00:00 188 [lb_av] [facility] BP Diastolic 2021-08-05 00:00:00 84 mm[Hg] [facility] Height 2021-08-05 00:00:00 68 [in_i] [facility] BMI (Body Mass Index) 2021-08-05 00:00:00 27.5 kg/m2 [facility] BP Systolic 2021-08-05 00:00:00 118 mm[Hg] [facility] Body Weight 2021-08-05 00:00:00 2896 [oz_av] [facility] Procedures Procedure Date / Time Performed Performing Clinician Source URINALYSIS 2022-08-02 10:17:00 Kierra Bautista [facility] CT ABDOMEN PELVIS W CONTRAST 2022-08-02 09:15:15 Kierra Bautista [facility] LIPASE 2022-08-02 08:16:00 Kierra Bautista [facility] HEPATIC FUNCTION PANEL ([id number]) (ALB,T.PRO,BILI T,BU/BC,ALT,AST,ALK PHOS) 2022-08-02 08:16:00 Kierra Bautista [facility] BASIC METABOLIC PANEL (NA, K, CL, CO2, GLUCOSE, BUN, CREATININE, CA) 2022-08-02 08:16:00 Kierra Bautista [facility] CBC WITH DIFF 2022-08-02 08:16:00 [facility]ula, 2 view 2022-04-27 00:00:00 [facility] XR, knee, 3 view 2022-04-27 00:00:00 [facility] XR, lumbosacral spine, 2 or 3 view 2022-04-27 00:00:00 [facility] XR, thoracic spine, 2 view 2022-04-27 00:00:00 [facility] XR, shoulder, 2 or more view 2022-04-27 00:00:[address] [facility] [address], abdomen + pelvis, w/o contrast 2022-04-27 00:00:00 [facility] ECG WITH INTERPRETATION 12 LEADS 2021-08-05 00:00:00 [facility] XR, chest, 2 view 2021-08-05 00:00:00 [facility] Cardiac Catheterization 2018-03-18 00:00:00 [facility] Partial Resection of Colon 1999-09-18 00:00:00 [facility] Cholecystectomy [place] [facility] dical [facility] Plan of Care Planned Activity Planned Date Details Comments Source Diagnostic Test Pending 2022-05-05 00:00:00 CMP, serum or plasma [code = CMP, serum or plasma] [facility] Diagnostic Test Pending 2022-05-05 00:00:00 urinalysis, complete [code = urinalysis, complete] [facility] Diagnostic Test Pending 2022-05-05 00:00:00 microalbumin/creat inine, mass ratio, urine [code = microalbumin/creat inine, mass ratio, urine] [facility] Encounters Start Date/Time End Date/Time Encounter Type Admission Type Attending [facility] Facility Care Department Encounter ID Source 2023-06-28 10:30:00 Inpatient DEEJAY BARRY [facility] [id number] [facility] 2024-02-21 11:00:00 2024-02-21 11:00:00 Outpatient KADIE CONTRERAS [id number] [facility] 2023-12-13 00:00:00 2023-12-13 00:00:00 Outpatient GRISELDA MCWILLIAMS [id number] [facility] 2023-11-30 15:45:00 2023-11-30 15:45:00 Outpatient [facility]ISEL[facility] MC[facility]ILLIAMS [id number] [facility]-27 00:00:00 2023-11-27 00:00:00 Outpatient GRISELDA MCWILLIAMS [id number] Ivelisse smith 2023-11-16 00:00:00 2023-11-16 00:00:00 Outpatient RICH SANCHEZ [id number] [facility] 2023-11-13 00:00:00 2023-11-13 00:00:00 Outpatient MCWILLIAMS, GRISELDA IVELISSE RAMOS [id number] Ivelisse Seybold 2023-11-02 00:00:00 2023-11-02 00:00:00 Outpatient PREZASRICH IVELISSE RAMOS [id number] Ivelisse Seybold 2023-11-02 00:00:00 2023-11-02 00:00:00 Outpatient MCWILLIAMS, GRISELDA IVELISSE RAMOS [id number] Ivelisse Seybold 2023-11-02 00:00:00 2023-11-02 00:00:00 Outpatient MCWILLIAMS, GRISELDA RAMOS [id number] Ivelisse Seybold 2023-11-02 00:00:00 2023-11-02 00:00:00 Outpatient MD IVELISSE WOLFE [id number] Ivelisse Seybold 2023-10-31 00:00:00 2023-10-31 00:00:00 Outpatient PREZASRICH IVELISSE RAMOS [id number] Ivelisse Seybold 2023-10-19 00:00:00 2023-10-19 00:00:00 Outpatient IVELISSE RAMOS [id number] Ivelisse Seybold 2023-10-17 00:00:00 2023-10-17 00:00:00 Outpatient IVELISSE RAMOS [id number] Ivelisse Seybold 2023-08-31 15:30:00 2023-08-31 15:30:00 Outpatient MCWILLIAMS, GRISELDA RAMOS [id number] Ivelisse Seybold 2023-08-31 13:45:00 2023-08-31 13:45:00 Outpatient MCWILLIAMSGRISELDA [id number] Ivelisse Seybold 2023-08-29 00:00:00 2023-08-29 00:00:00 Outpatient PREZASRICH IVELISSE RAMOS [id number] Ivelisse Seybold 2023-08-29 00:00:00 2023-08-29 00:00:00 Outpatient KADIE CONTRERAS [id number] Ivelisse Seybold 2023-08-25 00:00:00 2023-08-25 00:00:00 Outpatient KADIE CONTRERAS IVELISSE RAMOS [id number] Ivelisse Aminjuan 2023-08-23 00:00:00 2023-08-23 00:00:00 Outpatient RICH SANCHEZ IVELISSE RAMOS [id number] Ivelisse Sarah 2023-08-22 11:55:00 2023-08-22 11:55:00 Outpatient LABKeke IVELISSE RAMOS [id number] Ivelisse [facility] 2023-08-22 11:00:00 2023-08-22 11:00:00 Outpatient KADIE CONTRERAS [facility] RAM[facility] [id number] [facility] 2023-08-18 00:00:00 2023-08-18 00:00:00 Outpatient IVELISSE RAMOS [id number] Ivelisse [facility] 2023-08-16 10:10:00 2023-08-16 10:10:00 Outpatient IVELISSE RAMOS [id number] Ivelisse [facility] 2023-08-16 00:00:00 2023-08-16 00:00:00 Outpatient IVELISSE RAMOS [id number] Ivelisse [facility] 2023-08-08 14:45:00 2023-08-08 14:45:00 Outpatient YURIDIA BRENTON IVELISSE RAMOS [id number] Ivelisse [facility] 2023-08-08 14:30:00 2023-08-08 14:30:00 Outpatient KADIE CONTRERAS IVELISSE RAMOS [id number] [facility] 2022-08-02 02:08:00 2022-08-02 06:26:00 Emergency X [facility] E[facility] [id number] [facility] 2022-08-02 02:08:00 2022-08-02 06:26:00 Emergency Kierra Bautista S [facility] [id number] [facility] 2022-06-13 00:00:00 2022-06-13 00:00:00 Outpatient Koudela_A [facility] [id number] 0926 [facility] 2022-05-18 16:09:00 2022-05-18 18:58:00 Emergency ER Halle Cruz [facility] [id number] [facility] 2022-05-05 10:53:00 2022-05-05 10:53:00 Outpatient ARIEL MARADIAGA [facility] [id number] [facility] 2022-05-05 00:00:00 2022-05-05 00:00:00 Ariel Saldivar PA-C: [address], [place] [address] , Ph. Yariel_Alfredo [facility] 18 [facility] 2022-04-27 11:14:00 2022-04-27 11:14:00 Outpatient ARIEL MOREAU [facility] [id number] [facility] 2022-04-27 00:00:00 2022-04-27 00:00:00 Ariel Saldivar PA-C: [address], [place] [address] , Ph. Yariel_Alfredo [facility] [id number] 0810 [facility] 2022-04-18 13:18:00 2022-04-18 17:27:00 Emergency ER Parker Mina [facility] [id number] [facility] 2022-04-15 00:00:00 2022-04-15 00:00:00 Outpatient Koudela_A [facility] [id number] 0729 [facility] 2022-03-30 00:00:00 2022-03-30 00:00:00 Ariel Saldivar PA-C: [address], [place] [address] , Ph. Jodyla_A [facility] 07 [facility] 2022-02-28 00:00:00 2022-02-28 00:00:00 Ariel Saldivar PA-C: [address], [place] [address] , Ph. Jodyla_A [facility] 612 [facility] 2022-02-25 13:30:00 2022-02-25 19:22:00 Emergency ER Denise Bustillo [facility] [id number] [facility] 2022-02-05 12:33:00 2022-02-05 12:33:00 Outpatient Yariel_A [facility] 520 [facility] 2022-01-31 11:31:00 2022-01-31 11:31:00 Outpatient ARIEL MARADIAGA [facility] [id number] [facility] 2022-01-31 00:00:00 2022-01-31 00:00:00 Ariel Saldivar PA-C: [address], [place] [address] , Ph. Yariel_Alfredo [facility] 515 [facility] 2022-01-12 09:58:00 2022-01-12 09:58:00 Outpatient Shira Kamara [facility] [id number] [facility] 2022-01-03 00:00:00 2022-01-03 00:00:00 Ariel Saldivar PA-C: [address], [place] [address] , Ph. Koudela_A [facility] 2021-12-17 06:11:00 2021-12-17 06:11:00 Outpatient Koudela_A [facility] [id number] 0401 [facility] 2021-12-06 00:00:00 2021-12-06 00:00:00 Ariel Saldivra PA-C: [address], [place] [address] , Ph. Koudela_A [facility] 2021-12-02 10:10:00 2021-12-02 10:10:00 Outpatient Deejay Barry [facility] [id number] [facility] 2021-11-18 10:39:00 2021-11-18 10:39:00 Outpatient ARIEL MARADIAGA [facility] [id number] [facility] 2021-11-18 00:00:00 2021-11-18 00:00:00 Ariel Saldivar PA-C: [address], [place] [address] , Ph. Koudela_A [facility] 2021-11-17 10:55:00 2021-11-17 10:55:00 Outpatient AURELIO SimmonsDeejay [facility] [id number] [facility] 2021-10-29 04:41:00 2021-10-29 04:41:00 Outpatient Koudela_A [facility] [id number] 0211 [facility] 2021-10-27 02:05:00 2021-10-27 02:05:00 Outpatient Koudela_A [facility] [id number] 0209 [facility] 2021-10-19 09:53:00 2021-10-19 09:53:00 Outpatient Deejay Barry [facility] [id number] [facility] 2021-10-18 11:04:00 2021-10-18 11:04:00 [place] [id number] 0131 [facility] 2021-10-05 00:00:00 2021-10-05 00:00:00 Ariel Saldivar PA-C: [address], [place] [address] , Ph. Koudela_A [facility] 0118 [facility] 2021-09-26 12:55:00 2021-10-01 14:03:00 Inpatient ER Kimberly Jimenezgypsy [facility] [id number] [facility] 2021-09-25 11:01:00 2021-09-25 14:06:00 Emergency ER ANITA MONTANEZ [facility] [id number] [facility] 2021-08-25 05:53:00 2021-08-25 05:53:00 Outpatient Koudela_A [facility] [id number] 1208 [facility] 2021-08-24 00:00:00 2021-08-24 00:00:00 Miah Bruno MD: [address], [place] [address] , Ph. [phone] Koudela_A [facility] surgery 120 [facility] 2021-08-09 04:17:00 2021-08-09 04:17:00 Outpatient Koudela_A [facility] [id number] 1122 [facility] 2021-08-06 10:50:00 2021-08-06 10:50:00 Outpatient Koudela_A [facility] [id number] 111 [facility] 2021-08-05 00:00:00 2021-08-05 00:00:00 Ariel Saldivar PA-C: [address] [place] [address] [address], [place] [address] , Ph. Jodyla_A [facility] 1117 [facility] 2021-08-04 05:51:00 2021-08-04 05:51:00 Outpatient Koudela_A [facility] [id number] [facility] 2021-08-03 01:34:00 2021-08-03 01:34:00 Outpatient Zuniga_F [facility] [id number] 1116 [facility] 2021-05-29 07:18:00 2021-05-29 12:30:00 Emergency ER JORGE A FRANCO [facility] [id number] [facility] 2021 21:16:00 2021 22:23:00 Emergency ER TROY ROJAS [facility] [id number] [facility] 2021-04-05 02:45:00 2021-04-05 02:45:00 Outpatient Zruiga_F [facility] [id number] 07 [facility] Results Test Description Test Time Test Comments Results Result Co mments Source [facility] W Auto Differential panel - [id number] 09:29:00 * Test Item Value Reference Range Interpretation Comme nts white blood count (test code = white blood count) 6.2 K/uL 4.0-12.3 red blood count (test code = red blood count) 4.90 M/uL 3.80-5.80 hemoglobin (test code = hemoglobin) 14.1 g/dL 11.7-17.2 hematocrit (test code = hematocrit) 43.3 % 35.0-51.0 MCV [Entitic volume] (test c ode = 52855-1) 88.4 fL 83.0-100.0 mean corpuscular hemoglobin (test code = mean corpuscular hemoglobin) 28.8 pg 26.8-33.4 mean corpuscular HGB conc (t est code = mean corpuscular HGB conc) 32.6 g/dL 30.0-35.0 red cell distribution width (test code = red cell distribution width) 13.9 % 12.0-14.0 platelet count (test code = platelet count) 309 K/uL 175-450 mean platelet volume (test c ode = mean platelet volume) 9.0 fL 9.4-12.6 L Segmented neutrophils/100 leukocytes in Blood (test code = 03250-9) 52.9 % 44.7-82.4 Immature granulocytes [#/vol ume] in Blood (test code = 69730-7) 0.01 K/uL 0.00-0.03 lymphocyte% (test code = lymphocyte%) 32.5 % 10.0-50.0 mono % (test code = mono %) 11.7 % 3.9-13.4 eos % (test code = eos %) 2.1 % 0.0-6.4 basophil % (test code = baso lai %) 0.6 % 0.2-1.2 Band form neutrophils [#/vol ume] in Blood (test code = 59221-6) 3.30 K/uL 1.78-5.38 Lymphocytes [#/volume] in Sp ecimen by Automated count (test code = 46733-0) 2.03 K/uL 1.32-3.57 mono # (test code = mono #) 0.73 K/uL 0.30-0.82 eos # (test code = eos #) 0.13 K/uL 0.04-0.54 basophil # (test code = baso lai #) 0.04 K/uL 0.01-0.08 NRBC% (test code = NRBC%) 0 /100 WBC 0-0.2 NRBC# (test code = NRBC#) 0 K/uL [facility], method unspecified - [id number] 09:29:00NeutrophilsBandLymphocyteAtypical LymphMonocyteEosinophilBasophilAbs Neutrophil Count (Man)Abs Lymph Count (Man)Abs Monocyte Count (Man)Abs Eosinophil Count (Man)Abs Basophil Count (Man)Platelet EstimatePlatelet MorphologyHypochromasiaPoikilocytosisAnisocytosisStomatocyteMatagorda Medical GroupComprehensive metabolic 2000 panel - Serum or [id number] 09:29:00* Test Item Value Reference Range Interpretation Comme nts Glucose [Mass/volume] in Ser um or Plasma (test code = 2345-7) 103 mg/dL 74-106 Urea nitrogen [Mass/volume] in Serum or Plasma (test code = 3094-0) 11 mg/dL 6-20 osmolality calculated,serum (test code = osmolality calculated,serum) 274 mOsm/kg 280-300 L creatinine (test code = creatinine) 0.99 mg/dL 0.70-1.20 glomerular filtration rate ( test code = glomerular filtration rate) >60.00 BUN/creatinine ratio (test c ode = BUN/creatinine ratio) 11.1 12.0-20.0 L sodium level (test code = so dium level) 137 mmol/L 135-145 potassium level (test code = potassium level) 4.0 mmol/L 3.5-5.2 chloride level (test code = chloride level) 102 mmol/L 98-108 CO2 (test code = CO2) 23 mmol/L 21-32 anion gap (test code = anion gap) 16.0 mEq/L 12.0-20.0 calcium level (test code = calcium level) 9.8 mg/dL 8.6-10.0 total protein (test code = t otal protein) 7.2 g/dL 6.6-8.7 albumin (test code = albumin) 4.6 g/dL 3.5-5.2 globulin (test code = globulin) 2.6 g/dL 1.5-4.5 A/G ratio (test code = A/G ratio) 1.8 >1.0 bilirubin,total (test code = bilirubin,total) 0.4 mg/dL 0.0-1.2 AST/SGOT (test code = AST/SGOT) 35 U/L 15-40 Alanine aminotransferase [Enzymatic activity/volume] in Serum or Plasma (test code = 1742-6) 67 U/L 0-41 H Alkaline phosphatase [Enzyma tic activity/volume] in Serum or Plasma (test code = 6768-6) 100 U/L 40-130 [facility] GroupAmylase [Enzymatic activity/volume] in Serum or Plasma 2022-04-27 00:00:00* Test Item Value Reference Range Interpretation Comme nts Amylase [Enzymatic activity/ volume] in Serum or Plasma (test code = 1798-8) 62 U/L 28-100 [facility] GroupLipase [Enzymatic activity/volume] in Serum or Plasma 2022-04-27 00:00:00* Test Item Value Reference Range Interpretation Comme nts lipase (test code = lipase) 41 U/L 13-60 [facility] HospitalUrinalysis complete panel - [id number] 12:30:00* Test Item Value Reference Range Interpretation Comme nts Color of Urine by Auto (test code = 05126-9) light yellow Appearance of Urine (test co de = 5767-9) clear clear Glucose [Presence] in Urine by Automated test strip (test code = 08172-3) negative negative Bilirubin.total [Mass/volume ] in Urine (test code = 1978-6) negative negative Ketones [Mass/volume] in Uri ne by Automated test strip (test code = 42556-5) negative negative Specific gravity of Urine by Automated test strip (test code = 65121-8) 1.029 1.003-1.030 blood urine (test code = blo od urine) negative negative pH of Urine (test code = 2756-5) 7.000 5-9 protein urine (UA) (test cod e = protein urine (UA)) negative negative Urobilinogen [Presence] in Urine (test code = 39646-4) normal 0.2-1.0 Nitrite [Presence] in Urine by Test strip (test code = 5802-4) negative negative Leukocyte esterase [Presence ] in Urine by Automated test strip (test code = 45040-3) negative negative Erythrocytes [#/volume] in Urine by Automated count (test code = 798-9) <1 0-5 Leukocytes [#/area] in Urine sediment by Automated count (test code = 57026-4) <1 0-5 Epithelial cells [Presence] in Urine sediment by Light microscopy (test code = 75240-8) <1 0-5 Bacteria identified in Urine by Culture (test code = 630-4) none detected none detect Casts [#/area] in Urine sediment by Automated count (test code = 95199-3) none detected none detect urine culture added? (test c ode = urine culture added?) no [facility] GroupUrinalysis complete panel - [id number] 12:30:00* Test Item Value Reference Range Interpretation Comme nts Color of Urine by Auto (test code = 78128-9) light yellow Appearance of Urine (test co de = 5767-9) clear clear Glucose [Presence] in Urine by Automated test strip (test code = 62593-1) negative negative Bilirubin.total [Mass/volume ] in Urine (test code = 1978-6) negative negative Ketones [Mass/volume] in Uri ne by Automated test strip (test code = 97405-0) negative negative Specific gravity of Urine by Automated test strip (test code = 66478-8) 1.029 1.003-1.030 blood urine (test code = blo od urine) negative negative pH of Urine (test code = 2756-5) 7.000 5-9 protein urine (UA) (test cod e = protein urine (UA)) negative negative Urobilinogen [Presence] in Urine (test code = 46267-0) normal 0.2-1.0 Nitrite [Presence] in Urine by Test strip (test code = 5802-4) negative negative Leukocyte esterase [Presence ] in Urine by Automated test strip (test code = 78404-6) negative negative Erythrocytes [#/volume] in Urine by Automated count (test code = 798-9) <1 0-5 Leukocytes [#/area] in Urine sediment by Automated count (test code = 87281-9) <1 0-5 Epithelial cells [Presence] in Urine sediment by Light microscopy (test code = 84727-6) <1 0-5 Bacteria identified in Urine by Culture (test code = 630-4) none detected none detect Casts [#/area] in Urine sediment by Automated count (test code = 99267-3) none detected none detect urine culture added? (test c ode = urine culture added?) no [facility] GroupBlood type and Indirect antibody screen panel - Blood 2022-04-18 11:39:00* Test Item Value Reference Range Interpretation Comme nts Rh [Type] in Blood (test cod e = 71491-4) 4+ ABO and Rh group panel - Blo od (test code = 19943-9) A positive [facility] and Indirect antibody screen panel - Blood 2022-04-18 11:39:00* Test Item Value Reference Range Interpretation Comme nts Rh [Type] in Blood (test cod e = 75705-9) 4+ ABO and Rh group panel - Blo od (test code = 41090-5) A positive [facility] GroupCBC panel - Blood by Automated [id number] 11:34:00* Test Item Value Reference Range Interpretation Comme nts white blood count (test code = white blood count) 6.5 K/uL 4.0-12.3 red blood count (test code = red blood count) 4.52 M/uL 3.80-5.80 hemoglobin (test code = hemoglobin) 13.5 g/dL 11.7-17.2 hematocrit (test code = hematocrit) 39.6 % 35.0-51.0 MCV [Entitic volume] (test c ode = 55201-9) 87.6 fL 83.0-100.0 mean corpuscular hemoglobin (test code = mean corpuscular hemoglobin) 29.9 pg 26.8-33.4 mean corpuscular HGB conc (t est code = mean corpuscular HGB conc) 34.1 g/dL 30.0-35.0 red cell distribution width (test code = red cell distribution width) 14.3 % 12.0-14.0 H platelet count (test code = platelet count) 251 K/uL 175-450 mean platelet volume (test c ode = mean platelet volume) 8.0 fL 9.4-12.6 L [facility] GroupPT/[id number] 11:34:00* Test Item Value Reference Range Interpretation Comme nts prothrombin time (test code = prothrombin time) 9.9 seconds 10.3-12.3 L INR in Blood by Coagulation assay (test code = 85981-6) <0.94 [facility] thromboplastin [id number] 11:34:00* Test Item Value Reference Range Interpretation Comme nts INR in Blood by Coagulation assay (test code = 02570-4) 24.5 seconds 22.5-37.0 [facility] 2000 panel - Serum or Plasma 2022-04-18 11:34:00* Test Item Value Reference Range Interpretation Comme nts Glucose [Mass/volume] in Ser um or Plasma (test code = 2345-7) 96 mg/dL 74-106 Urea nitrogen [Mass/volume] in Serum or Plasma (test code = 3094-0) 9 mg/dL 6-20 osmolality calculated,serum (test code = osmolality calculated,serum) 276 mOsm/kg 280-300 L creatinine (test code = creatinine) 0.97 mg/dL 0.70-1.20 glomerular filtration rate ( test code = glomerular filtration rate) >60.00 BUN/creatinine ratio (test c ode = BUN/creatinine ratio) 9.3 12.0-20.0 L sodium level (test code = so dium level) 139 mmol/L 135-145 potassium level (test code = potassium level) 3.2 mmol/L 3.5-5.2 L chloride level (test code = chloride level) 101 mmol/L 98-108 CO2 (test code = CO2) 31 mmol/L 21-32 anion gap (test code = anion gap) 10.2 mEq/L 12.0-20.0 L calcium level (test code = calcium level) 9.6 mg/dL 8.6-10.0 total protein (test code = t otal protein) 7.3 g/dL 6.6-8.7 albumin (test code = albumin) 4.3 g/dL 3.5-5.2 globulin (test code = globulin) 3.0 g/dL 1.5-4.5 A/G ratio (test code = A/G ratio) 1.4 >1.0 bilirubin,total (test code = bilirubin,total) 0.3 mg/dL 0.0-1.2 AST/SGOT (test code = AST/SGOT) 24 U/L 15-40 Alanine aminotransferase [Enzymatic activity/volume] in Serum or Plasma (test code = 1742-6) 41 U/L 0-41 Alkaline phosphatase [Enzyma tic activity/volume] in Serum or Plasma (test code = 6768-6) 91 U/L 40-130 [facility] HospitalCreatine kinase [Enzymatic activity/volume] in Serum or [id number] 11:34:00* Test Item Value Reference Range Interpretation Comme nts creatine kinase (test code = creatine kinase) 192 U/L 20-200 [facility] HospitalCBC panel - Blood by Automated [id number] 11:34:00* Test Item Value Reference Range Interpretation Comme nts white blood count (test code = white blood count) 6.5 K/uL 4.0-12.3 red blood count (test code = red blood count) 4.52 M/uL 3.80-5.80 hemoglobin (test code = hemoglobin) 13.5 g/dL 11.7-17.2 hematocrit (test code = hematocrit) 39.6 % 35.0-51.0 MCV [Entitic volume] (test c ode = 74539-8) 87.6 fL 83.0-100.0 mean corpuscular hemoglobin (test code = mean corpuscular hemoglobin) 29.9 pg 26.8-33.4 mean corpuscular HGB conc (t est code = mean corpuscular HGB conc) 34.1 g/dL 30.0-35.0 red cell distribution width (test code = red cell distribution width) 14.3 % 12.0-14.0 H platelet count (test code = platelet count) 251 K/uL 175-450 mean platelet volume (test c ode = mean platelet volume) 8.0 fL 9.4-12.6 L [facility] HospitalPT/[id number] 11:34:00* Test Item Value Reference Range Interpretation Comme nts prothrombin time (test code = prothrombin time) 9.9 seconds 10.3-12.3 L INR in Blood by Coagulation assay (test code = 22395-4) <0.94 [facility]partial thromboplastin [id number] 11:34:00* Test Item Value Reference Range Interpretation Comme nts INR in Blood by Coagulation assay (test code = 46014-7) 24.5 seconds 22.5-37.0 [facility]Com[facility] 2000 panel - Serum or Plasma 2022-04-18 11:34:00* Test Item Value Reference Range Interpretation Comme nts Glucose [Mass/volume] in Ser um or Plasma (test code = 2345-7) 96 mg/dL 74-106 Urea nitrogen [Mass/volume] in Serum or Plasma (test code = 3094-0) 9 mg/dL 6-20 osmolality calculated,serum (test code = osmolality calculated,serum) 276 mOsm/kg 280-300 L creatinine (test code = creatinine) 0.97 mg/dL 0.70-1.20 glomerular filtration rate ( test code = glomerular filtration rate) >60.00 BUN/creatinine ratio (test c ode = BUN/creatinine ratio) 9.3 12.0-20.0 L sodium level (test code = so dium level) 139 mmol/L 135-145 potassium level (test code = potassium level) 3.2 mmol/L 3.5-5.2 L chloride level (test code = chloride level) 101 mmol/L 98-108 CO2 (test code = CO2) 31 mmol/L 21-32 anion gap (test code = anion gap) 10.2 mEq/L 12.0-20.0 L calcium level (test code = calcium level) 9.6 mg/dL 8.6-10.0 total protein (test code = t otal protein) 7.3 g/dL 6.6-8.7 albumin (test code = albumin) 4.3 g/dL 3.5-5.2 globulin (test code = globulin) 3.0 g/dL 1.5-4.5 A/G ratio (test code = A/G ratio) 1.4 >1.0 bilirubin,total (test code = bilirubin,total) 0.3 mg/dL 0.0-1.2 AST/SGOT (test code = AST/SGOT) 24 U/L 15-40 Alanine aminotransferase [Enzymatic activity/volume] in Serum or Plasma (test code = 1742-6) 41 U/L 0-41 Alkaline phosphatase [Enzyma tic activity/volume] in Serum or Plasma (test code = 6768-6) 91 U/L 40-130 [facility] [Enzymatic activity/volume] in Serum or [id number] 11:34:00* Test Item Value Reference Range Interpretation Comme nts creatine kinase (test code = creatine kinase) 192 U/L 20-200 [facility] W Auto Differential panel - [id number] 09:45:00 * Test Item Value Reference Range Interpretation Comme nts white blood count (test code = white blood count) 5.6 K/uL 4.0-12.3 red blood count (test code = red blood count) 4.27 M/uL 3.80-5.80 hemoglobin (test code = hemoglobin) 12.6 g/dL 11.7-17.2 hematocrit (test code = hematocrit) 38.2 % 35.0-51.0 MCV [Entitic volume] (test c ode = 19270-7) 89.5 fL 83.0-100.0 mean corpuscular hemoglobin (test code = mean corpuscular hemoglobin) 29.5 pg 26.8-33.4 mean corpuscular HGB conc (t est code = mean corpuscular HGB conc) 33.0 g/dL 30.0-35.0 red cell distribution width (test code = red cell distribution width) 14.3 % 12.0-14.0 H platelet count (test code = platelet count) 258 K/uL 175-450 mean platelet volume (test c ode = mean platelet volume) 9.5 fL 9.4-12.6 Segmented neutrophils/100 leukocytes in Blood (test code = 88761-2) 46.8 % 44.7-82.4 Immature granulocytes [#/vol ume] in Blood (test code = 47313-1) 0.01 K/uL 0.00-0.03 lymphocyte% (test code = lymphocyte%) 36.8 % 10.0-50.0 mono % (test code = mono %) 11.7 % 3.9-13.4 eos % (test code = eos %) 3.6 % 0.0-6.4 Basophils/100 leukocytes in Specimen (test code = 05842-4) 0.9 % 0.2-1.2 Band form neutrophils [#/vol ume] in Blood (test code = 67640-3) 2.64 K/uL 1.78-5.38 Lymphocytes [#/volume] in Sp ecimen by Automated count (test code = 31717-4) 2.07 K/uL 1.32-3.57 mono # (test code = mono #) 0.66 K/uL 0.30-0.82 eos # (test code = eos #) 0.20 K/uL 0.04-0.54 basophil # (test code = baso lai #) 0.05 K/uL 0.01-0.08 NRBC% (test code = NRBC%) 0 /100 WBC 0-0.2 NRBC# (test code = NRBC#) 0 K/uL [facility]Com[facility] 2000 [facility] - Serum or Plasma 2022-01-31 09:45:00* Test Item Value Reference Range Interpretation Comme nts glucose (test code = glucose) 96 mg/dL 74-106 Urea nitrogen [Mass/volume] in Serum or Plasma (test code = 3094-0) 12 mg/dL 6-20 osmolality calculated,serum (test code = osmolality calculated,serum) 277 mOsm/kg 280-300 L creatinine (test code = creatinine) 0.92 mg/dL 0.70-1.20 glomerular filtration rate ( test code = glomerular filtration rate) >60.00 Urea nitrogen/Creatinine [Ma ss Ratio] in Serum or Plasma (test code = 3097-3) 13.0 12.0-20.0 sodium level (test code = so dium level) 139 mmol/L 135-145 Potassium [Moles/volume] in Body fluid (test code = 2821-7) 3.6 mmol/L 3.5-5.2 chloride level (test code = chloride level) 106 mmol/L 98-108 CO2 (test code = CO2) 24 mmol/L 21-32 anion gap (test code = anion gap) 12.6 mEq/L 12.0-20.0 calcium level (test code = calcium level) 8.9 mg/dL 8.6-10.0 total protein (test code = t otal protein) 6.6 g/dL 6.6-8.7 albumin (test code = albumin) 4.4 g/dL 3.5-5.2 globulin (test code = globulin) 2.2 g/dL 1.5-4.5 A/G ratio (test code = A/G ratio) 2.0 >1.0 bilirubin,total (test code = bilirubin,total) 0.2 mg/dL 0.0-1.2 AST/SGOT (test code = AST/SGOT) 19 U/L 15-40 Alanine aminotransferase [Enzymatic activity/volume] in Serum or Plasma (test code = 1742-6) 28 U/L 0-41 Alkaline phosphatase [Enzyma tic activity/volume] in Serum or Plasma (test code = 6768-6) 91 U/L 40-130 [facility] HospitalLipid 1996 panel - Serum or [id number] 09:45:00* Test Item Value Reference Range Interpretation Comme nts cholesterol level (test code = cholesterol level) 113 mg/dL 150-200 L triglycerides level (test co de = triglycerides level) 148 mg/dL <150 HDL cholesterol (test code = HDL cholesterol) 36 mg/dL >55 L LDL cholesterol direct (test code = LDL cholesterol direct) 61 mg/dL <100 cholesterol risk ratio (test code = cholesterol risk ratio) 3.138 [facility] HospitalUrinalysis complete W Reflex Culture panel - Urine 2022-01-31 09:45:00* Test Item Value Reference Range Interpretation Comme nts Color of Urine by Auto (test code = 15577-4) yellow Appearance of Urine (test co de = 5767-9) clear clear Glucose [Presence] in Urine by Automated test strip (test code = 03656-8) negative negative Bilirubin.total [Mass/volume ] in Urine (test code = 1978-6) negative negative Ketones [Mass/volume] in Uri ne by Automated test strip (test code = 26611-8) negative negative Specific gravity of Urine by Automated test strip (test code = 89030-6) 1.031 1.003-1.030 H blood urine (test code = blo od urine) negative negative pH of Urine (test code = 2756-5) 6.000 5-9 protein urine (UA) (test cod e = protein urine (UA)) =1+ (30 negative H Urobilinogen [Presence] in Urine (test code = 05128-8) =2.0 0.2-1.0 H Nitrite [Presence] in Urine by Test strip (test code = 5802-4) negative negative Leukocyte esterase [Presence ] in Urine by Automated test strip (test code = 89140-3) negative negative Erythrocytes [#/volume] in Urine by Automated count (test code = 798-9) =1-5 0-5 Leukocytes [#/area] in Urine sediment by Automated count (test code = 67252-0) <1 0-5 Epithelial cells [Presence] in Urine sediment by Light microscopy (test code = 60144-8) <1 0-5 Bacteria identified in Urine by Culture (test code = 630-4) none detected none detect Casts [#/area] in Urine sediment by Automated count (test code = 36579-2) =2-5 none detect urine culture added? (test c ode = urine culture added?) no [facility] HospitalDifferential panel, method unspecified - [id number] 00:00:00NeutrophilsBandLymphocyteAtypical LymphMonocyteEosinophilBasophilMetamyelocyteAbs Neutrophil Count (Man)Abs Lymph Count (Man)Abs Monocyte Count (Man)Abs Eosinophil Count (Man)Abs Basophil Count (Man)Platelet EstimatePlatelet MorphologyMacrocytosisFranklin County Memorial Hospital Hemoglobin A1c [Mass/volume] in [id number] 00:00:00* Test Item Value Reference Range Interpretation Comme nts Hemoglobin A1c [Mass/volume] in Blood (test code = 20275-8) 5.7 % 4.0-6.0 [facility]Com[facility] 2000 panel - Serum or Plasma 2021-11-18 09:51:00* Test Item Value Reference Range Interpretation Comme nts glucose (test code = glucose) 91 mg/dL 74-106 Urea nitrogen [Mass/volume] in Serum or Plasma (test code = 3094-0) 10 mg/dL 6-20 osmolality calculated,serum (test code = osmolality calculated,serum) 276 mOsm/kg 280-300 L creatinine (test code = creatinine) 0.96 mg/dL 0.70-1.20 glomerular filtration rate ( test code = glomerular filtration rate) >60.00 Urea nitrogen/Creatinine [Ma ss Ratio] in Serum or Plasma (test code = 3097-3) 10.4 12.0-20.0 L sodium level (test code = so dium level) 139 mmol/L 135-145 Potassium [Moles/volume] in Body fluid (test code = 2821-7) 3.4 mmol/L 3.5-5.2 L chloride level (test code = chloride level) 103 mmol/L 98-108 CO2 (test code = CO2) 24 mmol/L 21-32 anion gap (test code = anion gap) 15.4 mEq/L 12.0-20.0 calcium level (test code = calcium level) 8.8 mg/dL 8.6-10.0 total protein (test code = t otal protein) 7.1 g/dL 6.6-8.7 albumin (test code = albumin) 4.2 g/dL 3.5-5.2 globulin (test code = globulin) 2.9 g/dL 1.5-4.5 A/G ratio (test code = A/G ratio) 1.4 >1.0 bilirubin,total (test code = bilirubin,total) 0.3 mg/dL 0.0-1.2 AST/SGOT (test code = AST/SGOT) 18 U/L 15-40 Alanine aminotransferase [Enzymatic activity/volume] in Serum or Plasma (test code = 1742-6) 32 U/L 0-41 Alkaline phosphatase [Enzyma tic activity/volume] in Serum or Plasma (test code = 6768-6) 91 U/L 40-130 [facility] HospitalCobalamin (Vitamin B12) [Mass/volume] in Serum or Plasma 2021-11-18 00:00:00* Test Item Value Reference Range Interpretation Comme [facility] vitamin B12, serum (test cod e = vitamin B12, serum) 330 [facility] W Auto Differential panel - [id number] 03:50:00 * Test Item Value Reference Range Interpretation Comme nts white blood count (test code = white blood count) 10.6 K/uL 4.0-12.3 red blood count (test code = red blood count) 4.27 M/uL 3.80-5.80 hemoglobin (test code = hemoglobin) 12.1 g/dL 11.7-17.2 hematocrit (test code = hematocrit) 36.6 % 35.0-51.0 MCV [Entitic volume] (test c ode = 78616-9) 85.7 fL 83.0-100.0 mean corpuscular hemoglobin (test code = mean corpuscular hemoglobin) 28.3 pg 26.8-33.4 mean corpuscular HGB conc (t est code = mean corpuscular HGB conc) 33.1 g/dL 30.0-35.0 red cell distribution width (test code = red cell distribution width) 13.2 % 12.0-14.0 platelet count (test code = platelet count) 242 K/uL 175-450 mean platelet volume (test c ode = mean platelet volume) 9.0 fL 9.4-12.6 L Segmented neutrophils/100 leukocytes in Blood (test code = 09379-1) 72.9 % 44.7-82.4 Immature granulocytes [#/vol ume] in Blood (test code = 54374-9) 0.10 K/uL 0.00-0.03 H lymphocyte% (test code = lymphocyte%) 19.0 % 10.0-50.0 mono % (test code = mono %) 7.1 % 3.9-13.4 eos % (test code = eos %) 0 % 0.0-6.4 Basophils/100 leukocytes in Unspecified specimen (test code = 78538-4) 0.1 % 0.2-1.2 L Band form neutrophils [#/vol ume] in Blood (test code = 33458-0) 7.75 K/uL 1.78-5.38 H Lymphocytes [#/volume] in Unspecified specimen by Automated count (test code = 32977-1) 2.02 K/uL 1.32-3.57 mono # (test code = mono #) 0.75 K/uL 0.30-0.82 eos # (test code = eos #) 0.00 K/uL 0.04-0.54 L basophil # (test code = baso lai #) 0.01 K/uL 0.01-0.08 NRBC% (test code = NRBC%) 0 /100 WBC 0-0.2 NRBC# (test code = NRBC#) 0 K/uL [facility] metabolic 2000 panel - Serum or [id number] 03:50:00* Test Item Value Reference Range Interpretation Comme nts Glucose [Mass/volume] in Ser um or Plasma (test code = 2345-7) 120 mg/dL 74-106 H Urea nitrogen [Mass/volume] in Serum or Plasma (test code = 3094-0) 20 mg/dL 6-20 osmolality calculated,serum (test code = osmolality calculated,serum) 278 mOsm/kg 280-300 L creatinine (test code = creatinine) 0.89 mg/dL 0.70-1.20 glomerular filtration rate ( test code = glomerular filtration rate) >60.00 Urea nitrogen/Creatinine [Ma ss Ratio] in Serum or Plasma (test code = 3097-3) 22.5 12.0-20.0 H sodium level (test code = so dium level) 137 mmol/L 135-145 potassium level (test code = potassium level) 3.6 mmol/L 3.5-5.2 chloride level (test code = chloride level) 106 mmol/L 98-108 CO2 (test code = CO2) 25 mmol/L 21-32 anion gap (test code = anion gap) 9.6 mEq/L 12.0-20.0 L calcium level (test code = calcium level) 8.0 mg/dL 8.6-10.0 L [facility] HospitalDifferential panel, method unspecified - [id number] 00:00:00NeutrophilsBandLymphocyteAtypical LymphMonocyteEosinophilBasophilMetamyelocyteMyelocytePromyelocyteBlastsNucleated Red Blood CellPlasma CellDifferential CommentAbs Neutrophil Count (Man)Abs Lymph Count (Man)Abs Monocyte Count (Man)Abs Eosinophil Count (Man)Abs Basophil Count (Man)Platelet EstimatePlatelet MorphologyHypochromasiaPoikilocytosisAnisocytosisMicrocytosisMacrocytosisSchisto cytesTarget CellsStomatocyteToxic GranulationBurr CellsHypersegmented PolysSmudge CellsH. C. [facility] W Auto Differential panel - Blood 2021-09-30 03:28:00* Test Item Value Reference Range Interpretation Comme nts white blood count (test code = white blood count) 10.1 K/uL 4.0-12.3 red blood count (test code = red blood count) 4.17 M/uL 3.80-5.80 hemoglobin (test code = hemoglobin) 12.0 g/dL 11.7-17.2 hematocrit (test code = hematocrit) 37.2 % 35.0-51.0 MCV [Entitic volume] (test c ode = 19346-6) 89.2 fL 83.0-100.0 mean corpuscular hemoglobin (test code = mean corpuscular hemoglobin) 28.8 pg 26.8-33.4 mean corpuscular HGB conc (t est code = mean corpuscular HGB conc) 32.3 g/dL 30.0-35.0 red cell distribution width (test code = red cell distribution width) 13.7 % 12.0-14.0 platelet count (test code = platelet count) 241 K/uL 175-450 mean platelet volume (test c ode = mean platelet volume) 9.0 fL 9.4-12.6 L Segmented neutrophils/100 leukocytes in Blood (test code = 90676-9) 85.9 % 44.7-82.4 H Immature granulocytes [#/vol ume] in Blood (test code = 53267-3) 0.11 K/uL 0.00-0.03 H lymphocyte% (test code = lymphocyte%) 10.0 % 10.0-50.0 mono % (test code = mono %) 3.0 % 3.9-13.4 L eos % (test code = eos %) 0 % 0.0-6.4 Basophils/100 leukocytes in Unspecified specimen (test code = 75460-5) 0.0 % 0.2-1.2 L Band form neutrophils [#/vol ume] in Blood (test code = 08454-6) 8.69 K/uL 1.78-5.38 H Lymphocytes [#/volume] in Unspecified specimen by Automated count (test code = 94611-8) 1.01 K/uL 1.32-3.57 L mono # (test code = mono #) 0.30 K/uL 0.30-0.82 eos # (test code = eos #) 0.00 K/uL 0.04-0.54 L basophil # (test code = baso lai #) 0.00 K/uL 0.01-0.08 L NRBC% (test code = NRBC%) 0 /100 WBC 0-0.2 NRBC# (test code = NRBC#) 0 K/uL [facility] metabolic 2000 panel - Serum or [id number] 03:28:00* Test Item Value Reference Range Interpretation Comme nts Glucose [Mass/volume] in Ser um or Plasma (test code = 2345-7) 127 mg/dL 74-106 H Urea nitrogen [Mass/volume] in Serum or Plasma (test code = 3094-0) 19 mg/dL 6-20 osmolality calculated,serum (test code = osmolality calculated,serum) 281 mOsm/kg 280-300 creatinine (test code = creatinine) 0.84 mg/dL 0.70-1.20 glomerular filtration rate ( test code = glomerular filtration rate) >60.00 Urea nitrogen/Creatinine [Ma ss Ratio] in Serum or Plasma (test code = 3097-3) 22.6 12.0-20.0 H sodium level (test code = so dium level) 139 mmol/L 135-145 potassium level (test code = potassium level) 3.8 mmol/L 3.5-5.2 chloride level (test code = chloride level) 106 mmol/L 98-108 CO2 (test code = CO2) 24 mmol/L 21-32 anion gap (test code = anion gap) 12.8 mEq/L 12.0-20.0 calcium level (test code = calcium level) 8.3 mg/dL 8.6-10.0 L [facility] GroupDifferential panel, method unspecified - [id number] 00:00:00NeutrophilsBandLymphocyteAtypical LymphMonocyteEosinophilBasophilMetamyelocyteMyelocytePromyelocyteBlastsNucleated Red Blood CellPlasma CellDifferential CommentAbs Neutrophil Count (Man)Abs Lymph Count (Man)Abs Monocyte Count (Man)Abs Eosinophil Count (Man)Abs Basophil Count (Man)Platelet EstimatePlatelet MorphologyHypochromasiaPoikilocytosisAnisocytosisMicrocytosisMacrocytosisSchisto cytesTarget CellsStomatocyteToxic GranulationBurr CellsHypersegmented PolysSmudge CellsMatagolaird hospital Medical GroupClostridioides difficile toxin A+B [Presence] in [id number] 08:35:00* Test Item Value Reference Range Interpretation Comme nts results (test code = results) Clostridioides difficile [id number] strain DNA [Presence] in Stool by PRANAV with probe detection (test code = 99719-7) 027 presumptive negative [facility] HospitalLeukocytes [Presence] in Stool by Light microscopy 2021-09-29 08:35:00ResultsH. [facility]. [facility] W Auto Differential panel - [id number] 02:50:00* Test Item Value Reference Range Interpretation Comme nts white blood count (test code = white blood count) 12.0 K/uL 4.0-12.3 red blood count (test code = red blood count) 4.17 M/uL 3.80-5.80 hemoglobin (test code = hemoglobin) 11.9 g/dL 11.7-17.2 hematocrit (test code = hematocrit) 36.2 % 35.0-51.0 MCV [Entitic volume] (test c ode = 58706-2) 86.8 fL 83.0-100.0 mean corpuscular hemoglobin (test code = mean corpuscular hemoglobin) 28.5 pg 26.8-33.4 mean corpuscular HGB conc (t est code = mean corpuscular HGB conc) 32.9 g/dL 30.0-35.0 red cell distribution width (test code = red cell distribution width) 13.6 % 12.0-14.0 platelet count (test code = platelet count) 255 K/uL 175-450 mean platelet volume (test c ode = mean platelet volume) 9.1 fL 9.4-12.6 L Segmented neutrophils/100 leukocytes in Blood (test code = 62362-4) 89.1 % 44.7-82.4 H Immature granulocytes [#/vol ume] in Blood (test code = 04201-4) 0.09 K/uL 0.00-0.03 H lymphocyte% (test code = lymphocyte%) 7.4 % 10.0-50.0 L mono % (test code = mono %) 2.8 % 3.9-13.4 L eos % (test code = eos %) 0 % 0.0-6.4 Basophils/100 leukocytes in Unspecified specimen (test code = 94176-1) 0.0 % 0.2-1.2 L Band form neutrophils [#/vol ume] in Blood (test code = 39231-4) 10.72 K/uL 1.78-5.38 H Lymphocytes [#/volume] in Unspecified specimen by Automated count (test code = 05865-7) 0.89 K/uL 1.32-3.57 L mono # (test code = mono #) 0.34 K/uL 0.30-0.82 eos # (test code = eos #) 0.00 K/uL 0.04-0.54 L basophil # (test code = baso lai #) 0.00 K/uL 0.01-0.08 L NRBC% (test code = NRBC%) 0 /100 WBC 0-0.2 NRBC# (test code = NRBC#) 0 K/uL [facility] HospitalBasi metabolic 2000 panel - Serum or [id number] 02:50:00* Test Item Value Reference Range Interpretation Comme nts Glucose [Mass/volume] in Ser um or Plasma (test code = 2345-7) 139 mg/dL 74-106 H Urea nitrogen [Mass/volume] in Serum or Plasma (test code = 3094-0) 21 mg/dL 6-20 H osmolality calculated,serum (test code = osmolality calculated,serum) 283 mOsm/kg 280-300 creatinine (test code = creatinine) 0.92 mg/dL 0.70-1.20 glomerular filtration rate ( test code = glomerular filtration rate) >60.00 Urea nitrogen/Creatinine [Ma ss Ratio] in Serum or Plasma (test code = 3097-3) 22.8 12.0-20.0 H sodium level (test code = so dium level) 139 mmol/L 135-145 potassium level (test code = potassium level) 3.8 mmol/L 3.5-5.2 chloride level (test code = chloride level) 105 mmol/L 98-108 CO2 (test code = CO2) 24 mmol/L 21-32 anion gap (test code = anion gap) 13.8 mEq/L 12.0-20.0 calcium level (test code = calcium level) 8.6 mg/dL 8.6-10.0 [facility] HospitalDifferential panel, method unspecified - [id number] 00:00:00NeutrophilsBandLymphocyteAtypical LymphMonocyteEosinophilBasophilMetamyelocyteMyelocytePromyelocyteBlastsNucleated Red Blood CellDifferential CommentAbs Neutrophil Count (Man)Abs Lymph Count (Man)AbsMonocyte Count (Man)Abs Eosinophil Count (Man)Abs Basophil Count (Man)Platelet EstimatePlatelet Morp hologyHypochromasiaPoikilocytosisAnisocytosisMicrocytosisMacrocytosisTarget CellsBurr CellsHypersegmented [facility] metabolic 2000 panel - Serum or [id number] 03:05:00* Test Item Value Reference Range Interpretation Comme nts glucose (test code = glucose) 125 mg/dL 74-106 H Urea nitrogen [Mass/volume] in Serum or Plasma (test code = 3094-0) 19 mg/dL 6-20 osmolality calculated,serum (test code = osmolality calculated,serum) 281 mOsm/kg 280-300 creatinine (test code = creatinine) 0.85 mg/dL 0.70-1.20 glomerular filtration rate ( test code = glomerular filtration rate) >60.00 Urea nitrogen/Creatinine [Ma ss Ratio] in Serum or Plasma (test code = 3097-3) 22.4 12.0-20.0 H sodium level (test code = so dium level) 139 mmol/L 135-145 Potassium [Moles/volume] in Body fluid (test code = 2821-7) 3.8 mmol/L 3.5-5.2 chloride level (test code = chloride level) 105 mmol/L 98-108 CO2 (test code = CO2) 23 mmol/L 21-32 anion gap (test code = anion gap) 14.8 mEq/L 12.0-20.0 calcium level (test code = calcium level) 9.0 mg/dL 8.6-10.0 [facility] W Auto Differential panel - [id number] 03:05:00 * Test Item Value Reference Range Interpretation Comme nts white blood count (test code = white blood count) 14.1 K/uL 4.0-12.3 red blood count (test code = red blood count) 4.35 M/uL 3.80-5.80 hemoglobin (test code = hemoglobin) 12.5 g/dL 11.7-17.2 hematocrit (test code = hematocrit) 37.8 % 35.0-51.0 MCV [Entitic volume] (test c ode = 21533-6) 86.9 fL 83.0-100.0 mean corpuscular hemoglobin (test code = mean corpuscular hemoglobin) 28.7 pg 26.8-33.4 mean corpuscular HGB conc (t est code = mean corpuscular HGB conc) 33.1 g/dL 30.0-35.0 red cell distribution width (test code = red cell distribution width) 13.7 % 12.0-14.0 platelet count (test code = platelet count) 275 K/uL 175-450 mean platelet volume (test c ode = mean platelet volume) 9.1 fL 9.4-12.6 L Segmented neutrophils/100 leukocytes in Blood (test code = 08289-1) 88.3 % 44.7-82.4 H Immature granulocytes [#/vol ume] in Blood (test code = 60281-9) 0.09 K/uL 0.00-0.03 H lymphocyte% (test code = lymphocyte%) 8.2 % 10.0-50.0 L mono % (test code = mono %) 2.8 % 3.9-13.4 L eos % (test code = eos %) 0 % 0.0-6.4 Basophils/100 leukocytes in Unspecified specimen (test code = 98743-6) 0.1 % 0.2-1.2 L Band form neutrophils [#/vol ume] in Blood (test code = 17373-8) 12.42 K/uL 1.78-5.38 H Lymphocytes [#/volume] in Unspecified specimen by Automated count (test code = 92024-8) 1.15 K/uL 1.32-3.57 L mono # (test code = mono #) 0.40 K/uL 0.30-0.82 eos # (test code = eos #) 0.00 K/uL 0.04-0.54 L basophil # (test code = baso lai #) 0.01 K/uL 0.01-0.08 NRBC% (test code = NRBC%) 0 /100 WBC 0-0.2 NRBC# (test code = NRBC#) 0 K/uL [facility] HospitalDifferential panel, method unspecified - [id number] 00:00:00NeutrophilsBandLymphocyteAtypical LymphMonocyteEosinophilBasophilMetamyelocyteMyelocytePromyelocyteBlastsNucleated Red Blood CellDifferential CommentAbs Neutrophil Count (Man)Abs Lymph Count (Man)AbsMonocyte Count (Man)Abs Eosinophil Count (Man)Abs Basophil Count (Man)Platelet EstimatePlatelet Morp hologyHypochromasiaPoikilocytosisAnisocytosisMicrocytosisMacrocytosisTarget CellsBurr CellsWvtagordCovington County Hospital W Auto Differential panel - Blood 2021-09-25 10:10:00* Test Item Value Reference Range Interpretation Comme nts white blood count (test code = white blood count) 6.9 K/uL 4.0-12.3 red blood count (test code = red blood count) 4.84 M/uL 3.80-5.80 hemoglobin (test code = hemoglobin) 13.8 g/dL 11.7-17.2 hematocrit (test code = hematocrit) 42.0 % 35.0-51.0 MCV [Entitic volume] (test c ode = 74249-1) 86.8 fL 83-100 mean corpuscular hemoglobin (test code = mean corpuscular hemoglobin) 28.5 pg 26.8-33.4 mean corpuscular HGB conc (t est code = mean corpuscular HGB conc) 32.9 g/dL 30-35 red cell distribution width (test code = red cell distribution width) 13.9 % 12.0-14.0 platelet count (test code = platelet count) 291 K/uL 175-450 mean platelet volume (test c ode = mean platelet volume) 8.3 fL 9.4-12.6 L Segmented neutrophils/100 leukocytes in Blood (test code = 45574-9) 36.0 % 44.7-82.4 L Immature granulocytes [#/vol ume] in Blood (test code = 73229-1) 0.0 K/uL 0.0-0.03 lymphocyte% (test code = lymphocyte%) 52.2 % 10.0-50.0 H mono % (test code = mono %) 8.4 % 3.9-13.4 eos % (test code = eos %) 2.7 % 0.0-6.4 Basophils/100 leukocytes in Unspecified specimen (test code = 28442-6) 0.6 % 0.2-1.2 Band form neutrophils [#/vol ume] in Blood (test code = 90339-3) 2.49 K/uL 1.78-5.38 Lymphocytes [#/volume] in Unspecified specimen by Automated count (test code = 08061-7) 3.6 K/uL 1.32-3.57 H mono # (test code = mono #) 0.58 K/uL 0.30-0.82 eos # (test code = eos #) 0.19 K/uL 0.04-0.54 basophil # (test code = baso lai #) 0.04 K/uL 0.01-0.08 NRBC% (test code = NRBC%) 0 /100 WBC 0-0.2 NRBC# (test code = NRBC#) 0 K/uL [facility] HospitalPT/[id number] 10:10:00* Test Item Value Reference Range Interpretation Comme nts prothrombin time (test code = prothrombin time) 9.9 seconds 10.3-12.3 L INR in Blood by Coagulation assay (test code = 79407-0) <0.94 [facility] HospitalComprehensive [facility] 2000 panel - Serum or Plasma 2021-09-25 10:10:00* Test Item Value Reference Range Interpretation Comme nts Glucose [Mass/volume] in Ser um or Plasma (test code = 2345-7) 162 mg/dL 74-106 H Urea nitrogen [Mass/volume] in Serum or Plasma (test code = 3094-0) 11 mg/dL 6-20 osmolality calculated,serum (test code = osmolality calculated,serum) 279 mOsm/kg 280-300 L creatinine (test code = creatinine) 1.0 mg/dL 0.70-1.20 glomerular filtration rate ( test code = glomerular filtration rate) >60.00 Urea nitrogen/Creatinine [Ma ss Ratio] in Serum or Plasma (test code = 3097-3) 11.0 12-20 L sodium level (test code = so dium level) 138 mmol/L 135-145 potassium level (test code = potassium level) 3.5 mmol/L 3.5-5.2 chloride level (test code = chloride level) 102 mmol/L 98-108 CO2 (test code = CO2) 24 mmol/L 21-32 anion gap (test code = anion gap) 16.0 mEq/L 12-20 calcium level (test code = calcium level) 9.4 mg/dL 8.6-10.0 total protein (test code = t otal protein) 7.2 g/dL 6.6-8.7 albumin (test code = albumin) 4.6 g/dL 3.5-5.2 globulin (test code = globulin) 2.6 gm/dL A/G ratio (test code = A/G ratio) 1.8 >1.0 bilirubin,total (test code = bilirubin,total) 0.3 mg/dL 0.0-1.2 AST/SGOT (test code = AST/SGOT) 29 U/L 15-40 Alanine aminotransferase [Enzymatic activity/volume] in Serum or Plasma (test code = 1742-6) 53 U/L 0-41 H Alkaline phosphatase [Enzyma tic activity/volume] in Serum or Plasma (test code = 6768-6) 124 U/L 40-130 [facility] [Enzymatic activity/volume] in Serum or [id number] 10:10:00* Test Item Value Reference Range Interpretation Comme nts creatine kinase (test code = creatine kinase) 243 U/L 20-200 H [facility]Different[facility] panel, method unspecified - [id number] 00:00:00NeutrophilsBandLymphocyteAtypical LymphMonocyteEosinophilBasophilMetamyelocyteMyelocyteAbs Neutrophil Count (Man)Abs Lymph Count (Man)Abs Monocyte Count (Man)Abs Eosinophil Count (Man)Abs Basophil Count (Man)Platelet EstimateHypochromasiaMatagoParkwood Behavioral Health Systempartial thromboplastin [id number] 00:00:00* Test Item Value Reference Range Interpretation Comme nts INR in Blood by Coagulation assay (test code = 61960-3) 23.6 seconds 22.5-37.0 [facility] HospitalCreatine kinase.MB [Mass/volume] in Serum or Plasma 2021-09-25 00:00:00* Test Item Value Reference Range Interpretation Comme nts Creatine kinase.MB [Mass/vol ume] in Serum or Plasma by Immunoassay (test code = 60217-9) 1.7 NG/mL 0.0-3.6 [facility]all[facility]rop [id number] 00:00:00* Test Item Value Reference Range Interpretation Comme nts Troponin T.cardiac [Mass/vol ume] in Blood (test code = 17500-2) <0.01 0-0.011 [facility]
[2024-02-28] MEDS ORDERED: DIAZEPAM 5 MG TABLET ONE (03:12)
--- NOTE | 2024-02-28 04:46 | EDPHYS ---
Physician Documentation [facility] Name: Piter Iglesias Age: 58 yrs Sex: Male : 1965 Arrival Date: 02/28/2024 Time: 01:45 Bed 16 Private MD: ED Physician Shar Gusman HPI: 02/27 01:54 This 58 yrs old Black Male presents to ER via Unassigned with complaints of anxiety . sp4 02:44 PMHx: elevated creatinine levels; Asthma; Anxiety; Crohn's Disease; depressive sp4 disorder; diabetes mellitus; elevated liver enzymes; Hyperlipidemia; Hypertension; spinal stenosis; ulcerative colitis PSHx: Cholecystectomy; intestinal Surgery. 02:49 Patient is a very pleasant 58-year-old male who presents with complaint of anxiety sp4 feeling uneasy as well. Patient was drinking ice coffee prior to arrival and crashed gabapentin 800 mg tablet into his coffee to help with discomfort. Patient is here for the evaluation of feeling anxious.. 02:50 While on ambulance patient reported dizziness, tachycardia, and elevated blood sp4 pressure.. Historical: - Allergies: 02:00 Nuts; jb4 - PMHx: 02:00 elevated creatinine levels; Asthma; Anxiety; Crohn's Disease; depressive disorder; jb4 diabetes mellitus; Hyperlipidemia; Hypertension; spinal stenosis; ulcerative colitis; elevated liver enzymes; - PSHx: 02:00 Cholecystectomy; intestinal Surgery; jb4 - Immunization history:: Adult Immunizations up to date. - Infectious Disease History:: Denies. - Social history:: Smoking status: Patient denies any tobacco usage or history of. - Family history:: not pertinent. ROS: 02:50 Constitutional: Negative for fever, chills, and weight loss, positive anxiety, positive sp4 dizziness, positive tachycardia, positive elevated blood pressure. 02:50 All other systems are negative, Exam: 02:50 Constitutional: This is a well developed, well nourished patient who is awake, alert, sp4 and in no acute distress. Head/Face: Normocephalic, atraumatic. Eyes: Pupils equal round and reactive to light, extra-ocular motions intact. Lids and lashes normal. Conjunctiva and sclera are not injected. Cornea within normal limits. Periorbital areas with no swelling, redness, or edema. ENT: Nares patent. No nasal discharge, no septal abnormalities noted. Tympanic membranes are normal and external auditory canals are clear. Oropharynx with no redness, swelling, or masses, exudates, or evidence of obstruction, uvula midline. Mucous membranes moist. Neck: Trachea midline, no thyromegaly or masses palpated, and no cervical lymphadenopathy. Supple, full range of motion without nuchal rigidity, or vertebral point tenderness. Chest/axilla: Normal chest wall appearance and motion. Nontender with no deformity. No lesions are appreciated. Cardiovascular: Regular rate and rhythm with a normal S1 and S2. No gallops, murmurs, or rubs. Normal PMI, no JVD. No pulse deficits. Respiratory: Lungs have equal breath sounds bilaterally, clear to auscultation and percussion. No rales, rhonchi or wheezes noted. No increased work of breathing, no retractions or nasal flaring. Abdomen/GI: Soft, with normal bowel sounds. No distension or tympany. No guarding or rebound. No evidence of tenderness throughout. Extensive abdominal scarring from prior surgery Back: No spinal tenderness. No costovertebral tenderness. Skin: Warm, dry with normal turgor. Normal color with no rashes, no lesions, and no evidence of cellulitis. MS/ Extremity: Pulses equal, no cyanosis. Neurovascular intact. Full, normal range of motion. Neuro: Awake and alert, GCS 15, oriented to person, place, time, and situation. Cranial nerves II-XII grossly intact. Motor strength 5/5 in all extremities. Sensory grossly intact. Psych: Awake, alert, with orientation to person, place and time. Behavior, mood, and affect are within normal limits 04:43 ECG was reviewed by the Attending Physician. EKG at 0 323 normal sinus rhythm, normal sp4 EKG. Vital Signs: 01:49 BP 122 / 90; Pulse 87; Resp 16; Temp 97.8(O); Pulse Ox 100% on R/A; Weight 85.73 kg; jb4 Height 5 ft. 3 in. (R); 02:00 BP 118 / 91; Pulse 83; Resp 16; Pulse Ox 99% on R/A; jb4 03:00 BP 124 / 84; Pulse 79; Resp 16; Pulse Ox 98% on R/A; jb4 03:45 BP 94 / 57; Pulse 71; Resp 16; Pulse Ox 99% on R/A; jb4 04:55 BP 124 / 78; Pulse 72; Resp 16; Temp 97.7(TE); Pulse Ox 97% on R/A; Pain 0/10; tm6 01:49 Body Mass Index 33.48 (85.73 kg, 160.02 cm) jb4 04:55 Pain Scale: Adult tm6 [place] Coma Score: 02:50 Eye Response: spontaneous(4). Motor Response: obeys commands(6). Verbal Response: sp4 oriented(5). Total: 15. MDM: 02:09 Patient medically screened. sp4 04:43 Differential Diagnosis altered mental status, Acute anxiety, overdose of medication, sp4 insomnia. Data reviewed: vital signs, nurses notes, EMS record, old medical records, EKG. ED course: Patient at this time stable for discharge home.. 02/27 02:49 Order name: EKG; Complete Time: 02:49 sp4 02/27 02:49 Order name: EKG - Nurse/Tech; Complete Time: 03:25 sp4 EC:43 Rate is 73 beats/min. Rhythm is regular, Normal Sinus Rhythm. QRS [place] is Normal. [place] sp4 interval is normal. QRS interval is normal. QT interval is normal. No Q waves. T waves are Normal. No ST changes noted. Clinical impression: Normal ECG. Interpreted by me. Reviewed by me. Administered Medications: 03:20 Drug: Diazepam PO 10 mg PO once Route: PO; jb4 Disposition Summary: 02/28/24 04:45 Discharge Ordered Notes: Location: Home sp4 Problem: new sp4 Symptoms: have improved sp4 Condition: Stable sp4 Diagnosis - Anxiety disorder, unspecified sp4 - Insomnia, unspecified sp4 Followup: sp4 - With: Private Physician - When: 7 - 10 days - Reason: Recheck today's complaints Discharge Instructions: - Discharge Summary Sheet sp4 - Managing Anxiety, Adult sp4 Forms: - Patient Portal Instructions sp4 Prescriptions: - Valium 5 mg Oral tablet - take 1 tablet ORAL route once daily As needed PRN anxiety; 10 tablet; Refills: sp4 0, Product Selection Permitted Signatures: Shiv Benedict RN RN jb4 Shar Gusman MD MD sp4
--- NOTE | 2024-02-28 04:46 | ER ---
Nurse's Notes [facility] Name: Piter Iglesias Age: 58 yrs Sex: Male : 1965 Arrival Date: 02/28/2024 Time: 01:45 Bed 16 Private MD: Diagnosis: Anxiety disorder, unspecified;Insomnia, unspecified Presentation: 02/27 01:49 Chief complaint: EMS states: Pt thought he had high blood pressure so he crushed up his jb4 gabapentin in his coffee. He then started reporting SOB, dizziness, numbness all over, HTN, dry mouth. Was tachycardic initially. Upon sitting in the ambulance HR began to decrease and pt began to appear more at ease. Coronavirus screen: At this time, the client does not indicate any symptoms associated with coronavirus-19. Ebola Screen: No symptoms or risks identified at this time. Initial Sepsis Screen: Does the patient meet any 2 criteria? No. Patient's initial sepsis screen is negative. Does the patient have a suspected source of infection? No. Patient's initial sepsis screen is negative. Risk Assessment: Do you want to hurt yourself or someone else?. Onset of symptoms was February 28, 2024. Transition of care: patient was not received from another setting of care. 01:49 Method Of Arrival: EMS: [facility] jb4 01:49 Acuity: AISHA 3 jb4 Historical: - Allergies: 02:00 Nuts; jb4 - PMHx: 02:00 elevated creatinine levels; Asthma; Anxiety; Crohn's Disease; depressive disorder; jb4 diabetes mellitus; Hyperlipidemia; Hypertension; spinal stenosis; ulcerative colitis; elevated liver enzymes; - PSHx: 02:00 Cholecystectomy; intestinal Surgery; jb4 - Immunization history:: Adult Immunizations up to date. - Infectious Disease History:: Denies. - Social history:: Smoking status: Patient denies any tobacco usage or history of. - Family history:: not pertinent. Screenin:00 [facility] ED Fall Risk Assessment (Adult) History of falling in the last 3 months, jb4 including since admission No falls in past 3 months (0 pts) Confusion or Disorientation No (0 pts) Intoxicated or Sedated No (0 pts) Impaired Gait No (0 pts) Mobility Assist Device Used No (0 pt) Altered Elimination No (0 pt) Score/Fall Risk Level 0 - 2 = Low Risk Oriented to surroundings, Maintained a safe environment. Abuse screen: Denies threats or abuse. Nutritional screening: No deficits noted. Tuberculosis screening: No symptoms or risk factors identified. Assessment: 02:00 General: Appears in no apparent distress. comfortable, Behavior is calm, cooperative, jb4 appropriate for age. Pain: Denies pain. Neuro: Level of Consciousness is awake, alert, obeys commands, Oriented to person, place, time, situation. Cardiovascular: Patient's skin is warm and dry. Respiratory: Airway is patent Respiratory effort is even, unlabored, Respiratory pattern is regular, symmetrical. GI: No signs and/or symptoms were reported involving the gastrointestinal system. : No signs and/or symptoms were reported regarding the genitourinary system. EENT: No signs and/or symptoms were reported regarding the EENT system. Derm: Skin is intact, Skin is pink, warm \T\ dry. Musculoskeletal: Circulation, motion, and sensation intact. Range of motion: intact in all extremities. 03:00 Reassessment: Patient appears in no apparent distress at this time. Patient and/or jb4 family updated on plan of care and expected duration. Pain level reassessed. Patient is alert, oriented x 3, equal unlabored respirations, skin warm/dry/pink. 04:00 Reassessment: Patient appears in no apparent distress at this time. Patient and/or jb4 family updated on plan of care and expected duration. Pain level reassessed. Patient is alert, oriented x 3, equal unlabored respirations, skin warm/dry/pink. 04:56 Reassessment: Patient appears in no apparent distress at this time. No changes from tm6 previously documented assessment. Vital Signs: 01:49 BP 122 / 90; Pulse 87; Resp 16; Temp 97.8(O); Pulse Ox 100% on R/A; Weight 85.73 kg; jb4 Height 5 ft. 3 in. (R); 02:00 BP 118 / 91; Pulse 83; Resp 16; Pulse Ox 99% on R/A; jb4 03:00 BP 124 / 84; Pulse 79; Resp 16; Pulse Ox 98% on R/A; jb4 03:45 BP 94 / 57; Pulse 71; Resp 16; Pulse Ox 99% on R/A; jb4 04:55 BP 124 / 78; Pulse 72; Resp 16; Temp 97.7(TE); Pulse Ox 97% on R/A; Pain 0/10; tm6 01:49 Body Mass Index 33.48 (85.73 kg, 160.02 cm) jb4 04:55 Pain Scale: Adult tm6 [place] Coma Score: 02:50 Eye Response: spontaneous(4). Motor Response: obeys commands(6). Verbal Response: sp4 oriented(5). Total: 15. ED Course: 01:49 Patient arrived in ED. jb4 01:53 Shar Gusman MD is Attending Physician. sp4 01:59 Triage completed. jb4 02:00 Arm band placed on right wrist. jb4 02:00 Patient has correct armband on for positive identification. Bed in low position. Call jb4 light in reach. Side rails up X 1. Provided Education on: plan of care. Client placed on continuous cardiac and pulse oximetry monitoring. NIBP monitoring applied. hall monitor on. 04:10 No provider procedures requiring assistance completed. jb4 04:10 Patient did not have IV access during this emergency room visit. jb4 Administered Medications: 03:20 Drug: Diazepam PO 10 mg PO once Route: PO; jb4 Medication: 04:57 VIS not applicable for this client. tm6 Outcome: 04:45 Discharge ordered by . sp4 04:57 Discharged to home ambulatory, tm6 04:57 Condition: stable 05:05 Discharge instructions given to patient, Instructed on discharge instructions, follow tm6 up and referral plans. medication usage, Demonstrated understanding of instructions, follow-up care, medications, Prescriptions given X 1, 05:06 Patient left the ED. tm6 Signatures: Shiv Benedict, RN RN jb4 Shar Gusman MD MD sp4 Estuardo Alonzo RN RN tm6
[2024-02-28 05:22] VITALS: BP 124/78; TEMP 97.7; O2SAT 97
--- NOTE | 2024-02-29 12:13 | EKG ---
Test Date: 2024-02-28 Test Time: 03:23:04 Certified Nurse Midwife: LUIGI MEASUREMENT RESULTS: Intervals: Rate: 73 KS: 146 QRSD: 62 QT: 364 QTc: 401 Harvey: P: 75 KS: 146 QRS: 14 T: 8 INTERPRETIVE STATEMENTS: Normal sinus rhythm Normal ECG Compared to ECG 06/20/2023 04:10:41 No significant changes Electronically Signed On 02-29-24 12:12:23 CDT by Aba Hernanedz
== END 2024-02-28 05:06 | disposition home or self-care (01) ==
LOC: ER 01:45
DX: F41.9 Anxiety disorder, unspecified (principal); G47.00 Insomnia, unspecified; I10 Essential (primary) hypertension; E11.9 Type 2 diabetes mellitus without complications; E78.5 Hyperlipidemia, unspecified; K50.90 Crohn's disease, unspecified, without complications; F32.A Depression, unspecified; Z91.018 Allergy to other foods
CPT/HCPCS: 93005; 99284

== ENCOUNTER 2024-03-10 01:27 | Emergency (ER) | payer OTHER ==
--- OUTSIDE RECORDS SUMMARY | 2024-03-10 01:31 | XMS REPORT | Continuity of Care Document ---
Author Name Unknown Address [address] [facility] [address] [place] [address] [facility] thconnect Address [address] [facility] [place] [address] Care Team Providers Care Customer Professional Name Role Phone ANGEL TIWARI Primary Care Physician Unavaila DEEJAY Ceja Attending Clinician Unavailable RICH SANCHEZ Attending Clinician Unavailable KADIE CONTRERAS Attending Clinician Unavailab GRISELDA Ortiz Attending Clinician Unavailab rohan AMARO MD Attending Clinician Unavailab le LAB90 Attending Clinician Unavailable BRENTON SHI Attending Clinician KIERRA Cruz Attending Clinician UnavailKierra Vallejo MD Attending Clinician Yariel_A Attending Clinician Unavailable Halle Cruz Attending Clinician Unavailable ARIEL SALDIVAR Attending Clinician Unavailable Parker Mina Attending Clinician Unavailab Denise Villalpando Attending Clinician UnavailShira Cunningham Attending Clinician Unavailable Jacy Jimenez Attending Clinician Unavailable ANITA MONTANEZ Attending Clinician Unavailable Zuniga_F Attending Clinician Unavailable JORGE A FRANCO Attending Clinician Unavailable TROY ROJAS Attending Clinician Unavailable KIERRA BAUTISTA Admitting Clinician Unavailelijah Saldivar_A Admitting Clinician Unavailable Jacy Jimenez Admitting Clinician Unavailable Zuniga_F Admitting Clinician Unavailable Payers Payer Name Policy Type Policy Number Effective Date Expirati on Date Source [facility]IV[facility]SE O 15 [id number] 2024 00:00:00 MEDICARE-PART B 5 [id number] 2023 00:00:00 [facility] [place] HMO 7 [id number] 2023 00:00:00 [employer] DUAL ACCESS OPEN PPO [id number] 2022 00:00:00 MEDICAID [facility] [id number] 2022 00:00:00 [facility] (MEDICARE REPLACEMENT/ADVANTA GE - HMO) [id number] 2021 00:00:00 [place] [facility] [id number] [facility] (MEDICARE REPLACEMENT/ADVANTA GE - PPO) [id number] [place] [id number] [facility] (MEDICARE REPLACEMENT/ADVANTA GE - HMO) [id number] 2021 00:00:00 [employer] (MEDICARE REPLACEMENT/ADVANTA GE - PPO) [id number] Problems Condition Name Condition Details Condition Category Status Onset Date Resolution Date Last Treatment Date Treating Clinician Comments Source [facility] adult exam Well adult exam Disease Active 2022-09 00:00: 00 Ivelisse Johnsonold - Externa l HTN (hypertens ion) HTN (hypertens ion) Disease Active 2022-09 00:00: 00 Ivelisse Johnsonold - Externa l Type 2 diabetes mellitus without complicati on, without long-term current use of insulin (multi HCC) Type 2 diabetes mellitus without complicati on, without long-term current use of insulin (multi HCC) Disease Active 2022-09 00:00: 00 Ivelisse Johnsonold - Externa l Immunodefi ciency due to conditions classified elsewhere (multi HCC) Immunodefi ciency due to conditions classified elsewhere (multi HCC) Disease Active 2022-09 00:00: 00 Ivelisse Johnsonold - Externa l Crohn disease (multi HCC) Crohn disease (multi HCC) Disease Active 2022-09 00:00: 00 Ivelisse Sarah - Externa l Hyperlipid emia Hyperlipid emia Problem Active 03-30 00:00: 00 [facility] Benign essential hypertensi on Benign Essential Hypertensi on Problem Active 03-30 00:00: 00 [facility] Mixed anxiety and depressive disorder Mixed Anxiety and Depressive Disorder Problem Active -16 00:00: 00 [facility] Gastro-eso phageal reflux disease with esophagiti s Gastro-eso phageal Reflux Disease with Esophagiti s Problem Active 10-18 00:00: 00 [facility] Crohn's disease of colon Crohn's Disease of Colon Problem Active 10-18 00:00: 00 [facility] Hyperchole sterolemia Hyperchole sterolemia Problem Active 2020-09 00:00: 00 [facility] Hypertensi ve disorder Hypertensi ve Disorder Problem Active 2020-09 00:00: 00 [facility] No known active problems No known active problems Disease [facility] Allergies, Adverse Reactions, Alerts Allergy Name Allergy Type Status Severity Reaction(s) Onset Date Inactive Date Treating Clinician Comments Source NO KNOWN ALLERGIE S Drug Class Active [facility] Social History Social Habit Start Date Stop Date Quantity Comments Source Sexual orientation Zulema Sarah - External Alcohol intake 2023-08-31 00:00:00 2023-08-31 00:00:00 Lifetime non-drinker (finding) Ivelisse Sarah - External History of Social function 2023-08-22 00:00:00 2023-08-22 00:00:00 Ivelisse Sarah - External Exposure to SARS-CoV-2 (event) 2022-07-23 00:00:00 2022-08-02 02:07:00 Not sure [facility] Sex Assigned At 1965 00:00:00 1965 00:00:00 Ivelisse Sarah - External Smoking Status Start Date Stop Date Source Current Every Day Smoker [facility] Tobacco smoking consumption unknown [facility] Never smoked tobacco Ivelisse Sarah - External [...] MG oral Tablet 2022-09 00:00: 00 Yes [id number] 600mg Take 1 tablet (600 mg total) by mouth 3 times daily. Ivelisse perez Duloxetine HCl [address] Particles 2022-09 00:00: 00 Yes [id number] 30mg Take 1 capsule (30 mg total) by mouth daily. Ivelisse perez Meloxicam 15 MG oral Tablet 2022-09 00:00: 00 10-16 05:59 :00 No [id number] 15mg Take 1 tablet (15 mg total) by mouth daily. Ivelisse perez Amlodipine Besylate 10 MG oral Tablet 2022-09 00:00: 00 Yes [id number] 10mg Take 1 tablet (10 mg total) by mouth daily. Ivelisse perez Cyclobenzap rine HCl 10 MG oral Tablet 2022-09 00:00: 00 Yes [id number] 10mg Q.5D Take 1 tablet (10 mg total) by mouth 2 times daily as needed No driving on medication . Ivelisse perez hydrOXYzine HCl 25 MG oral Tablet 2022-09 00:00: 00 Yes [id number] 25mg QD Take 1 tablet (25 mg total) by mouth daily as needed. Ivelisse perez Metformin HCl 500 MG oral Tablet 2022-09 00:00: 00 Yes [id number] 500mg Take 1 tablet (500 mg total) by mouth every morning. Ivelisse perez Gabapentin 800 MG oral Tablet 2022-09 00:00: 00 08-31 00:00 :00 No [id number] 800mg Take 1 tablet (800 mg total) [...] -Acetaminop hen 10-325 MG oral Tablet 2022-09 00:00: 00 Yes 1{tbl} Take 1 tablet by mouth 2 times daily. Ivelisse perez Gemfibrozil 600 MG oral Tablet 06-14 00:00: 00 Yes 600mg Take 1 tablet (600 mg total) by mouth daily as directed. Ivelisse perez Cyclobenzap rine HCl 10 MG oral Tablet 9-22 00:00: 00 Yes 10mg Q.5D Take 1 tablet (10 mg total) by mouth 2 times daily as needed. Ivelisse perez Vitamin D, Ergocalcife rol, 1.25 MG (84645 UT) oral Capsule 9-09 00:00: 00 Yes [id number] Take 1 capsule (50,000 units total) by mouth once a week. Ivelisse perez OneTouch Ultra in vitro Strip 30 00:00: 00 Yes 2 times daily. Ivelisse perez Lancets (OneTouch Delica Plus [id number]) does not apply Misc 05-15 00:00: 00 Yes 2 times daily. Ivelisse perez Lancets (OneTouch Delica Plus [id number]) does not apply Misc 05-15 00:00: 00 Yes 2 times daily. Ivelisse perez Amlodipine Besylate 10 MG oral Tablet 8-07 00:00: 00 Yes 10mg Take 1 tablet (10 mg total) by mouth daily. Ivelisse perez Amitriptyli ne HCl 25 MG oral Tablet 07 00:00: 00 08-31 00:00 :00 No 25mg Take 1 tablet (25 mg total) by mouth nightly. Ivelisse perez Metformin HCl 500 MG oral Tablet 7-11 00:00: 00 Yes 500mg Take 1 tablet (500 mg total) by mouth every morning. Ivelisse perez Atorvastati n Calcium 20 MG oral Tablet 6-29 00:00: 00 Yes 20mg Take 1 tablet (20 mg total) by mouth every evening. Ivelisse perez iopamidol (ISOVUE 370-500 mL) injection 75 mL 2021-09 10:15: 00 08-02 10:15 :00 No [id number] 75mL 75 mL, Intravenou s, ONCE, 1 dose, On 11/15/22 at 0415, Routine [facility] ondansetron (ZOFRAN) 4 mg tablet 2021-09 00:00: 00 Yes [id number] 4mg Take 1 tablet by mouth every 8 (eight) hours as needed for Nausea and Vomiting (N/V). [facility] albuterol sulfate HFA 90 mcg/actuati on aerosol inhaler INHALE TWO (2) PUFFS BY MOUTH EVERY 4 TO 6 HOURS. albuterol sulfate HFA 90 mcg/actuati on aerosol inhaler INHALE TWO (2) PUFFS BY MOUTH EVERY 4 TO 6 HOURS. No albuterol sulfate HFA 90 mcg/actuat ion aerosol inhaler INHALE TWO (2) PUFFS BY MOUTH EVERY 4 TO 6 HOURS. [facility] cyanocobala min (vit B-12) 1,000 mcg/mL injection solution Inject 1 mL every month by subcutaneou s route. cyanocobala min (vit B-12) 1,000 mcg/mL injection solution Inject 1 mL every month by subcutaneou s route. No 1mL cyanocobal perez (vit B-12) 1,000 mcg/mL injection solution Inject 1 mL every month by subcutaneo us route. [facility] famotidine 40 mg tablet TAKE 1 TABLET BY MOUTH ONCE DAILY IN THE EVENING famotidine 40 mg tablet TAKE 1 TABLET BY MOUTH ONCE DAILY IN THE EVENING No famotidine 40 mg tablet TAKE 1 TABLET BY MOUTH ONCE DAILY IN THE EVENING [facility] gabapentin 600 mg tablet Take 0.5 tablets twice a day by oral route for 30 days. gabapentin 600 mg tablet Take 0.5 tablets twice a day by oral route for 30 days. No .5 BID gabapentin 600 mg tablet Take 0.5 tablets twice a day by oral route for 30 days. [facility] ibuprofen 800 mg tablet ibuprofen 800 mg tablet No ibuprofen 800 mg tablet [facility] Medrol (Vignesh) 4 mg tablets in a dose pack Take 1 dose pk every day by oral route. Medrol (Vignesh) 4 mg tablets in a dose pack Take 1 dose pk every day by oral route. No 1dose pk(s) Q1D Medrol (Vignesh) 4 mg tablets in a dose pack Take 1 dose pk every day by oral route. [facility] metronidazo le 500 mg tablet TAKE ONE (1) TABLET(S) BY MOUTH THREE TIMES A DAY. metronidazo le 500 mg tablet TAKE ONE (1) TABLET(S) BY MOUTH THREE TIMES A DAY. No metronidaz ole 500 mg tablet TAKE ONE (1) TABLET(S) BY MOUTH THREE TIMES A DAY. [facility] Mobic 15 mg tablet Take 1 tablet every day by oral route for 7 days. Mobic 15 mg tablet Take 1 tablet every day by oral route for 7 days. No 1 Q1D Mobic 15 mg tablet Take 1 tablet every day by oral route for 7 days. [facility] montelukast 10 mg tablet TAKE 1 TABLET BY MOUTH EVERY DAY montelukast 10 mg tablet TAKE 1 TABLET BY MOUTH EVERY DAY No montelukas t 10 mg tablet TAKE 1 TABLET BY MOUTH EVERY DAY [facility] mupirocin 2 % topical ointment APPLY A SMALL AMOUNT TO THE AFFECTED AREA BY TOPICAL ROUTE 3 TIMES PER DAY mupirocin 2 % topical ointment APPLY A SMALL AMOUNT TO THE AFFECTED AREA BY TOPICAL ROUTE 3 TIMES PER DAY No mupirocin 2 % topical ointment APPLY A SMALL AMOUNT TO THE AFFECTED AREA BY TOPICAL ROUTE 3 TIMES PER DAY [facility] omeprazole 40 mg capsule,del ayed release TAKE 1 CAPSULE BY MOUTH ONCE DAILY BEFORE A MEAL omeprazole 40 mg capsule,del ayed release TAKE 1 CAPSULE BY MOUTH ONCE DAILY BEFORE A MEAL No omeprazole 40 mg capsule,de layed release TAKE 1 CAPSULE BY MOUTH ONCE DAILY BEFORE A MEAL [facility] paroxetine 20 mg tablet Take 1 tablet by mouth once daily paroxetine 20 mg tablet Take 1 tablet by mouth once daily No paroxetine 20 mg tablet Take 1 tablet by mouth once daily [facility] propranolol 20 mg tablet TAKE ONE (1) TABLET(S) BY MOUTH TWICE A DAY. propranolol 20 mg tablet TAKE ONE (1) TABLET(S) BY MOUTH TWICE A DAY. No propranolo l 20 mg tablet TAKE ONE (1) TABLET(S) BY MOUTH TWICE A DAY. [facility] tramadol 50 mg tablet TAKE 1 TABLET EVERY 6 HOURS BY ORAL ROUTE NEEDED. as needed for pain tramadol 50 mg tablet TAKE 1 TABLET EVERY 6 HOURS BY ORAL ROUTE NEEDED. as needed for pain No tramadol 50 mg tablet TAKE 1 TABLET EVERY 6 HOURS BY ORAL ROUTE NEEDED. as needed for pain [facility] Immunizations Ordered Immunization Name Filled Immunization Name Date Status Comments Source Influenza vaccine, quadrivalent, adjuvanted Influenza vaccine, quadrivalent, adjuvanted 2021-08-05 12:11:00 Completed [facility] COVID-19 Vaccine(Pfizer)([facility] 2022)(12yrs+) Unknown Completed Ivelisse ybo ld - External Influenza vaccine, quadrivalent, adjuvanted, 65+ Unknown Completed Ivelisse ybo ld - External Pneumococcal Vaccine, Conjugate 20 Unknown Completed Ivelisse Seybold - External Shingles IM (Shingrix) Unknown Completed Ivelisse Seybold - External Shingles IM (Shingrix) Unknown Completed Ivelisse Seybold - External COVID-19 Vaccine(Pfizer)([facility] 2022)(12yrs+) Unknown Completed Ivelisse Seybo ld - External Influenza vaccine, quadrivalent, adjuvanted, 65+ Unknown Completed Ivelisse Seybo ld - External Pneumococcal Vaccine, Conjugate 20 Unknown Completed Ivelisse Seybold - External Shingles IM (Shingrix) Unknown Completed Ivelisse Seybold - External Shingles IM (Shingrix) Unknown Completed Ivelisse Seybold - External COVID-19 Vaccine(Pfizer)([facility] 2022)(12yrs+) Unknown Completed Ivelisse [...] blood pressure 2023-08-31 20:31:00 112 mm[Hg] Ivelisse doireo ld - External Diastolic blood pressure 2023-08-31 20:31:00 77 mm[Hg] Ivelisse Johnsono ld - External Heart rate 2023-08-31 20:31:00 83 /min Karli gill Seybold - External Respiratory rate 2023-08-31 20:31:00 18 /min Ivelisse Seybold - External Body height 2023-08-31 20:31:00 160 cm Lissa jauregui Seybold - External Body weight 2023-08-31 20:31:00 73.483 kg Lissa ey Seybold - External BMI 2023-08-31 20:31:00 28.70 kg/m2 Lissa ey Seybold - External Oxygen saturation in Arterial blood by Pulse oximetry 2023-08-31 20:31:00 99 /min Ivelisse Seybo ld - External Systolic blood pressure 2023-08-22 16:50:00 122 mm[Hg] Ivelisse Seybo ld - External Diastolic blood pressure 2023-08-22 16:50:00 68 mm[Hg] Ivelsise Seybo ld - External Heart rate 2023-08-22 [...] Pulse oximetry 2023-08-22 16:50:00 98 /min Ivelisse Seybo ld - External Systolic blood pressure 2023-08-08 20:15:00 100 mm[Hg] Ivelises Seybo ld - External Diastolic blood pressure 2023-08-08 20:15:00 72 mm[Hg] Ivelisse Seybo ld - External Heart rate 2023-08-08 20:15:00 87 /min Kelse y Seybold - External Body temperature 2023-08-08 20:15:00 36.83 Blanca Ivelisse Seybold - External Respiratory rate 2023-08-08 20:15:00 15 /min Ivelisse Seybold - External Body height 2023-08-08 20:15:00 160 cm Lissa ey Seybold - External Body weight 2023-08-08 20:15:00 68.947 kg Lissa ey Seybold - External BMI 2023-08-08 20:15:00 26.93 kg/m2 Lissa ey Seybold - External Heart rate 2022-08-02 11:30:00 93 /min [facility] Oxygen saturation in Arterial blood by Pulse oximetry 2022-08-02 11:30:00 96 /min [facility] Systolic blood pressure 2022-08-02 11:00:00 134 mm[Hg] [facility] Diastolic blood pressure 2022-08-02 11:00:00 97 mm[Hg] [facility] Respiratory rate 2022-08-02 11:00:00 21 /min [facility] Body temperature 2022-08-02 08:11:00 36.56 Blanca [facility] Body height 2022-08-02 08:11:00 160 cm [facility] Body weight 2022-08-02 08:11:00 79.379 kg [facility] BMI 2022-08-02 08:11:00 31.00 kg/m2 [facility] BP Diastolic 2022-05-05 00:00:00 89 mm[Hg] [facility] Height 2022-05-05 00:00:00 68 [in_i] [facility] BMI (Body Mass Index) 2022-05-05 00:00:00 27.5 kg/m2 [facility] BP Systolic 2022-05-05 00:00:00 132 mm[Hg] [facility] Body Weight 2022-05-05 00:00:00 2891.2 [oz_av] [facility] BP Diastolic 2022-04-27 00:00:00 96 mm[Hg] [facility] Height 2022-04-27 00:00:00 68 [in_i] [facility] BMI (Body Mass Index) 2022-04-27 00:00:00 26.5 kg/m2 [facility] BP Systolic 2022-04-27 00:00:00 131 mm[Hg] [facility] Body Weight 2022-04-27 00:00:00 2792 [oz_av] [facility] BP Diastolic 2022-03-30 00:00:00 67 mm[Hg] [facility] Height 2022-03-30 00:00:00 68 [in_i] [facility] BMI (Body Mass Index) 2022-03-30 00:00:00 26.5 kg/m2 [facility] BP Systolic 2022-03-30 00:00:00 106 mm[Hg] [facility] Body Weight 2022-03-30 00:00:00 2784 [oz_av] [facility] BP Diastolic 2022-02-28 00:00:00 93 mm[Hg] [facility] Height 2022-02-28 00:00:00 68 [in_i] [facility] BMI (Body Mass Index) 2022-02-28 00:00:00 26.5 kg/m2 [facility] BP Systolic 2022-02-28 00:00:00 132 mm[Hg] [facility] Body Weight 2022-02-28 00:00:00 2784 [oz_av] [facility] BP Diastolic 2022-01-31 00:00:00 92 mm[Hg] [facility] Height 2022-01-31 00:00:00 68 [in_i] [facility] BMI (Body Mass Index) 2022-01-31 00:00:00 26.8 kg/m2 [facility] BP Systolic 2022-01-31 00:00:00 128 mm[Hg] [facility] Body Weight 2022-01-31 00:00:00 2816 [oz_av] [facility] BP Diastolic 2022-01-03 00:00:00 87 mm[Hg] [facility] Height 2022-01-03 00:00:00 68 [in_i] [facility] BMI (Body Mass Index) 2022-01-03 00:00:00 26.8 kg/m2 [facility] BP Systolic 2022-01-03 00:00:00 124 mm[Hg] [facility] Body Weight 2022-01-03 00:00:00 2816 [oz_av] [facility] BP Diastolic 2021-12-06 00:00:00 85 mm[Hg] [facility] Height 2021-12-06 00:00:00 68 [in_i] [facility] BMI (Body Mass Index) 2021-12-06 00:00:00 27.4 kg/m2 [facility] BP Systolic 2021-12-06 00:00:00 131 mm[Hg] [facility] Body Weight 2021-12-06 00:00:00 2887 [oz_av] [facility] BP Diastolic 2021-11-18 00:00:00 85 mm[Hg] [facility] Height 2021-11-18 00:00:00 68 [in_i] [facility] BMI (Body Mass Index) 2021-11-18 00:00:00 27.4 kg/m2 [facility] BP Systolic 2021-11-18 00:00:00 133 mm[Hg] [facility] Body Weight 2021-11-18 00:00:00 2880 [oz_av] [facility] BP Diastolic 2021-10-05 00:00:00 89 mm[Hg] [facility] Height 2021-10-05 00:00:00 68 [in_i] [facility] BMI (Body Mass Index) 2021-10-05 00:00:00 27.7 kg/m2 [facility] BP Systolic 2021-10-05 00:00:00 124 mm[Hg] [facility] Body Weight 2021-10-05 00:00:00 2912 [oz_av] [facility] BP Diastolic 2021-08-24 00:00:00 78 mm[Hg] [facility] Height 2021-08-24 00:00:00 68 [in_i] [facility] BMI (Body Mass Index) 2021-08-24 00:00:00 28.6 kg/m2 [facility] BP Systolic 2021-08-24 00:00:00 122 mm[Hg] [facility] Body Weight 2021-08-24 00:00:00 188 [lb_av] [facility] BP Diastolic 2021-08-05 00:00:00 84 mm[Hg] [facility] Height 2021-08-05 00:00:00 68 [in_i] [facility] BMI (Body Mass Index) 2021-08-05 00:00:00 27.5 kg/m2 [facility] BP Systolic 2021-08-05 00:00:00 118 mm[Hg] [facility] Body Weight 2021-08-05 00:00:00 2896 [oz_av] [facility] Procedures Procedure Date / Time Performed Performing Clinician Source URINALYSIS 2022-08-02 10:17:00 Kierra Bautista [facility] CT ABDOMEN PELVIS W CONTRAST 2022-08-02 09:15:15 Kierra Bautista [facility] LIPASE 2022-08-02 08:16:00 Kierra Bautista [facility] HEPATIC FUNCTION PANEL ([id number]) (ALB,T.PRO,BILI T,BU/BC,ALT,AST,ALK PHOS) 2022-08-02 08:16:00 Kierra Bautista [facility] BASIC METABOLIC PANEL (NA, K, CL, CO2, GLUCOSE, BUN, CREATININE, CA) 2022-08-02 08:16:00 Kierra Bautista [facility] CBC WITH DIFF 2022-08-02 08:16:00 [facility] 2 [facility] 2022-04-27 00:00:00 [facility] XR, knee, 3 view 2022-04-27 00:00:00 [facility] XR, lumbosacral spine, 2 or 3 view 2022-04-27 00:00:00 [facility] XR, thoracic spine, 2 view 2022-04-27 00:00:00 [facility] XR, shoulder, 2 or more view 2022-04-27 00:00:00 [facility] CT, abdomen + pelvis, w/o contrast 2022-04-27 00:00:00 [facility] ECG WITH INTERPRETATION 12 LEADS 2021-08-05 00:00:00 [facility] XR, chest, 2 view 2021-08-05 00:00:00 [facility] Cardiac Catheterization 2018-03-18 00:00:00 [facility] Partial Resection of Colon 1999-09-18 00:00:00 [facility] Cholecystectomy [facility] dical [facility] Plan of Care Planned Activity Planned Date Details Comments Source Diagnostic Test Pending 2022-05-05 00:00:00 CMP, serum or plasma [code = CMP, serum or plasma] [facility] Diagnostic Test Pending 2022-05-05 00:00:00 urinalysis, complete [code = urinalysis, complete] [facility] Diagnostic Test Pending 2022-05-05 00:00:00 microalbumin/creat inine, mass ratio, urine [code = microalbumin/creat inine, mass ratio, urine] [facility] Encounters Start Date/Time End Date/Time Encounter Type Admission Type Attending [facility] Facility Care Department Encounter ID Source 2023-06-28 10:30:00 Inpatient DEEJAY BARRY [facility] [id number] [facility] 2024-03-08 00:00:00 2024-03-08 00:00:00 Outpatient RICH SANCHEZ [id number] Ivelisse smith 2024-02-21 11:00:00 2024-02-21 11:00:00 Outpatient KADIE CONTRERAS [id number] [facility] 2023-12-13 00:00:00 2023-12-13 00:00:00 Outpatient GRISELDA MCWILLIAMS [id number] Ivelisse smith 2023-11-30 15:45:00 2023-11-30 15:45:00 Outpatient [facility] [id number] [facility]27 [facility]:00:00 2023-11-27 00:00:00 Outpatient GRISELDA MCWILLIAMS [id number] Ivelisse Seybjuan 2023-11-16 00:00:00 2023-11-16 00:00:00 Outpatient PREZAS, RICH IVELISSE RAMOS [id number] Ivelisse Seybold 2023-11-13 00:00:00 2023-11-13 00:00:00 Outpatient MCWILLIAMS, GRISELDA RAMOS [id number] Ivelisse Seybjuan 2023-11-02 00:00:00 2023-11-02 00:00:00 Outpatient PREZASRICH IVELISSE RAMOS [id number] Ivelisse Seybjuan 2023-11-02 00:00:00 2023-11-02 00:00:00 Outpatient MCWILLIAMS, GRISELDA RAMOS [id number] Ivelisse ybjuan 2023-11-02 00:00:00 2023-11-02 00:00:00 Outpatient MCWILLIAMS, GRISELDA RAMOS [id number] [facility] 2023-11-02 00:00:00 2023-11-02 00:00:00 Outpatient MD IVELISSE WOLFE [id number] [facility] 2023-10-31 00:00:00 2023-10-31 00:00:00 Outpatient PREZASRICH [id number] [facility] 2023-10-19 00:00:00 2023-10-19 00:00:00 Outpatient IVELISSE RAMOS [id number] Ivelisse Seybold 2023-10-17 00:00:00 2023-10-17 00:00:00 Outpatient IVELISSE RAMOS [id number] Ivelisse Seybold 2023-08-31 15:30:00 2023-08-31 15:30:00 Outpatient MCWILLIAMS, GRISELDA RAMOS [id number] Ivelisse Seybold 2023-08-31 13:45:00 2023-08-31 13:45:00 Outpatient MCWILLIAMSGRISELDA GRISSOM [id number] Ivelisse Seybold 2023-08-29 00:00:00 2023-08-29 00:00:00 Outpatient PREZASRICH [id number] Ivelisse [facility] 2023-08-29 00:00:00 2023-08-29 00:00:00 Outpatient KADIE CONTRERAS IVELISSE RAMOS [id number] Ivelisse Aminjuan 2023-08-25 00:00:00 2023-08-25 00:00:00 Outpatient KADIE CONTRERAS IV[facility]ISSE RAM[facility] [id number] [facility] 2023-08-23 00:00:00 2023-08-23 00:00:00 Outpatient RICH SANCHEZ IVELISSE RAMOS [id number] Ivelisse [facility] 2023-08-22 11:55:00 2023-08-22 11:55:00 Outpatient ESHA IVELISSE RAMOS [id number] Ivelisse [facility] 2023-08-22 11:00:00 2023-08-22 11:00:00 Outpatient KADIE CONTRERAS IVELISSE RAMOS [id number] [facility] 2023-08-18 00:00:00 2023-08-18 00:00:00 Outpatient IVELISSE RAMOS [id number] [facility] 2023-08-16 10:10:00 2023-08-16 10:10:00 Outpatient IVELISSE RAMOS [id number] [facility] 2023-08-16 00:00:00 2023-08-16 00:00:00 Outpatient IVELISSE RAMOS [id number] [facility] 2023-08-08 14:45:00 2023-08-08 14:45:00 Outpatient BRENTON SHI [id number] [facility] 2023-08-08 14:30:00 2023-08-08 14:30:00 Outpatient KADIE CONTRERAS IVELISSE RAMOS [id number] [facility] 2022-08-02 02:08:00 2022-08-02 06:26:00 Emergency X KIERRA BAUTISTA [facility] ERT [id number] [facility] 2022-08-02 02:08:00 2022-08-02 06:26:00 Emergency Kierra Bautista S [facility] [id number] [facility] 2022-06-13 00:00:00 2022-06-13 00:00:00 Outpatient Koudela_A [facility] [id number] 0926 [facility] 2022-05-18 16:09:00 2022-05-18 18:58:00 Emergency ER Halle Cruz [facility] [id number] [facility] 2022-05-05 10:53:00 2022-05-05 10:53:00 Outpatient SAMARA MARADIAGALEY [facility] [id number] [facility] 2022-05-05 00:00:00 2022-05-05 00:00:00 RADHA PetitC: [address] [id number] , Ph. Yariel_A [facility] [id number] 0818 [facility] 2022-04-27 11:14:00 2022-04-27 11:14:00 Outpatient KRISTA TREVINOSAMARA GUZMANLEY [facility] [id number] [facility] 2022-04-27 00:00:00 2022-04-27 00:00:00 RADHA PetitC: [address], [place] [id number] , Ph. Yariel_A [facility] [id number] 0810 [facility] 2022-04-18 13:18:00 2022-04-18 17:27:00 Emergency ER Parker Mina [facility] [id number] [facility] 2022-04-15 00:00:00 2022-04-15 00:00:00 Outpatient Koudela_A [facility] [id number] 0729 [facility] 2022-03-30 00:00:00 2022-03-30 00:00:00 Ariel Saldivar PA-C: [address], [place] [address] , Ph. Yariel_A [facility] 0713 [facility] 2022-02-28 00:00:00 2022-02-28 00:00:00 Ariel Saldivar PA-C: [address], [place] [address] , Ph. Yariel_A [facility] 612 [facility] 2022-02-25 13:30:00 2022-02-25 19:22:00 Emergency ER Denise Rider [facility] [id number] [facility] 2022-02-05 12:33:00 2022-02-05 12:33:00 Outpatient Yariel_A [facility] 0521 [facility] 2022-01-31 11:31:00 2022-01-31 11:31:00 Outpatient ARIEL MARADIAGA [facility] [id number] [facility] 2022-01-31 00:00:00 2022-01-31 00:00:00 Ariel Saldivar PA-C: [address], [place] [address] , Ph. Yariel_A [facility] 515 [facility] 2022-01-12 09:58:00 2022-01-12 09:58:00 Outpatient Shira Kamara [facility] [id number] [facility] 2022-01-03 00:00:00 2022-01-03 00:00:00 Ariel Saldivar PA-C: [address], [place] [address] , Ph. Yariel_A DAVY [facility] 0418 [facility] 2021-12-17 06:11:00 2021-12-17 06:11:00 Outpatient Yariel_A [facility] 0401 [facility] 2021-12-06 00:00:00 2021-12-06 00:00:00 Ariel Saldivar PA-C: [address], [place] [address] , Ph. Yariel_A DAVY [facility] 0321 [facility] 2021-12-02 10:10:00 2021-12-02 10:10:00 Outpatient Deejay Barry [facility] [id number] [facility] 2021-11-18 10:39:00 2021-11-18 10:39:00 Outpatient ARIEL MARADIAGA [facility] [id number] [facility] 2021-11-18 00:00:00 2021-11-18 00:00:00 Ariel Saldivar PA-C: [address], [place] [address] , Ph. Yariel_Alfredo BHATTI [facility] 0303 [facility] 2021-11-17 10:55:00 2021-11-17 10:55:00 Outpatient Deejay Barry [facility] [id number] [facility] 2021-10-29 04:41:00 2021-10-29 04:41:00 Outpatient Danieludela_A [facility] 0211 [facility] 2021-10-27 02:05:00 2021-10-27 02:05:00 Outpatient Koudela_A [facility] [id number] 0209 [facility] 2021-10-19 09:53:00 2021-10-19 09:53:00 Outpatient Deejay Barry [facility] [id number] [facility] 2021-10-18 11:04:00 2021-10-18 11:04:00 [place] [id number] 0131 [facility] 2021-10-05 00:00:00 2021-10-05 00:00:00 Ariel Saldivar PA-C: [address], [place] [address] , Ph. Koudela_A [facility] 0118 [facility] 2021-09-26 12:55:00 2021-10-01 14:03:00 Inpatient ER Jacy Jimenez [facility] [id number] [facility] 2021-09-25 11:01:00 2021-09-25 14:06:00 Emergency ER ANITA MONTANEZ [facility] [id number] [facility] 2021-08-25 05:53:00 2021-08-25 05:53:00 Outpatient Koudela_[place] [facility] [place] [id number] 1208 [facility] 2021-08-24 00:00:00 2021-08-24 00:00:00 Miah Bruno MD: [address], [place] [address] , Ph. [phone] Koudela_A [facility] 1207 [facility] 2021-08-09 04:17:00 2021-08-09 04:17:00 Outpatient Koudela_A [facility] [id number] 112 [facility] 2021-08-06 10:50:00 2021-08-06 10:50:00 Outpatient [place]ela_[place] [facility] [place] [id number] 111 [facility] 2021-08-05 00:00:00 2021-08-05 00:00:00 Ariel Saldivar PA-C: [address] [place] [address], [place] [address] , Ph. Koudela_A [facility] [id number] [facility] 2021-08-04 05:51:00 2021-08-04 05:51:00 Outpatient Koudela_A [facility] [id number] 1117 [facility] 2021-08-03 01:34:00 2021-08-03 01:34:00 Outpatient Zuniga_F [facility] [id number] [facility] 2021-05-29 07:18:00 2021-05-29 12:30:00 Emergency ER JORGE A FRANCO [facility] [id number] [facility] 2021 21:16:00 2021 22:23:00 Emergency ER TROY ROJAS [facility] [id number] [facility] 2021-04-05 02:45:00 2021-04-05 02:45:00 Outpatient Zuniga_F [facility] [id number] 0719 [facility] Results Test Description Test Time Test Comments Results Result Co mments Source [facility] W Auto Differential panel - [id number] 09:29:00 * Test Item Value Reference Range Interpretation Comme nts white blood count (test code = white blood count) 6.2 K/uL 4.0-12.3 red blood count (test code = red blood count) 4.90 M/uL 3.80-5.80 hemoglobin (test code = hemoglobin) 14.1 g/dL 11.7-17.2 hematocrit (test code = hematocrit) 43.3 % 35.0-51.0 MCV [Entitic volume] (test c ode = 35515-3) 88.4 fL 83.0-100.0 mean corpuscular hemoglobin (test [...] neutrophils/100 leukocytes in Blood (test code = 92965-8) 52.9 % 44.7-82.4 Immature granulocytes [#/vol ume] in Blood (test code = 14516-4) 0.01 K/uL 0.00-0.03 lymphocyte% (test code = lymphocyte%) 32.5 % 10.0-50.0 mono % (test code = mono %) 11.7 % 3.9-13.4 eos % (test code = eos %) 2.1 % 0.0-6.4 basophil % (test code = baso lai %) 0.6 % 0.2-1.2 Band form neutrophils [#/vol ume] in Blood (test code = 07686-3) 3.30 K/uL 1.78-5.38 Lymphocytes [#/volume] in Sp ecimen by Automated count (test code = 90448-0) 2.03 K/uL 1.32-3.57 mono # (test code = mono #) 0.73 K/uL 0.30-0.82 eos # (test code = eos #) 0.13 K/uL 0.04-0.54 basophil # (test code = baso lai #) 0.04 K/uL 0.01-0.08 NRBC% (test code = NRBC%) 0 /100 WBC 0-0.2 NRBC# (test code = NRBC#) 0 K[facility]L [facility], method unspecified - [id number] 09:29:00NeutrophilsBandLymphocyteAtypical LymphMonocyteEosinophilBasophilAbs Neutrophil Count (Man)Abs Lymph Count (Man)Abs Monocyte Count (Man)Abs Eosinophil Count (Man)Abs Basophil Count (Man)Platelet EstimatePlatelet MorphologyHypochromasiaPoikilocytosisAnisocytosisStomatocytForrest General HospitalComprehensive metabolic 2000 panel - Serum or [id number] 09:29:00* Test Item Value Reference Range Interpretation [...] (test code = 6768-6) 100 U/L 40-130 [facility] [Enzymatic activity/volume] in Serum or Plasma 2022-04-27 00:00:00* Test Item Value Reference Range Interpretation Comme nts Amylase [Enzymatic activity/ volume] in Serum or Plasma (test code = 1798-8) 62 U/L 28-100 [facility] GroupLipase [Enzymatic activity/volume] in Serum or Plasma 2022-04-27 00:00:00* Test Item Value Reference Range Interpretation Comme nts lipase (test code = lipase) 41 U/L 13-60 [facility]Urinalysis complete panel - [id number] 12:30:00* Test Item Value Reference Range Interpretation Comme nts Color of Urine by Auto (test code = 39549-1) light yellow Appearance of Urine (test co de = 5767-9) clear clear Glucose [Presence] in Urine by Automated test strip (test code = 88817-9) negative negative Bilirubin.total [Mass/volume ] in Urine (test code = 1978-6) negative negative Ketones [Mass/volume] in Uri ne by Automated test strip (test code = 15996-5) negative negative Specific gravity of Urine by Automated test strip (test code = 19427-4) 1.029 1.003-1.030 blood urine (test code = blo od urine) negative negative pH of Urine (test code = 2756-5) 7.000 5-9 protein urine (UA) (test cod e = protein urine (UA)) negative negative Urobilinogen [Presence] in Urine (test code = 46152-0) normal 0.2-1.0 Nitrite [Presence] in Urine by Test strip (test code = 5802-4) negative negative Leukocyte esterase [Presence ] in Urine by Automated test strip (test code = 49639-3) negative negative Erythrocytes [#/volume] in Urine by Automated count (test code = 798-9) <1 0-5 Leukocytes [#/area] in Urine sediment by Automated count (test code = 43444-3) <1 0-5 Epithelial cells [Presence] in Urine sediment by Light microscopy (test code = 97045-2) <1 0-5 Bacteria identified in Urine by Culture (test code = 630-4) none detected none detect Casts [#/area] in Urine sediment by Automated count (test code = 21689-2) none detected none detect urine culture added? (test c ode = urine culture added?) no [facility] GroupUrinalysis complete panel - [id number] 12:30:00* Test Item Value Reference Range Interpretation Comme nts Color of Urine by Auto (test code = 85306-1) light yellow Appearance of Urine (test co de = 5767-9) clear clear Glucose [Presence] in Urine by Automated test strip (test code = 33936-6) negative negative Bilirubin.total [Mass/volume ] in Urine (test code = 1978-6) negative negative Ketones [Mass/volume] in Uri ne by Automated test strip (test code = 87076-3) negative negative Specific gravity of Urine by Automated test strip (test code = 80661-3) 1.029 1.003-1.030 blood urine (test code = blo od urine) negative negative pH of Urine (test code = 2756-5) 7.000 5-9 protein urine (UA) (test cod e = protein urine (UA)) negative negative Urobilinogen [Presence] in Urine (test code = 65472-5) normal 0.2-1.0 Nitrite [Presence] in Urine by Test strip (test code = 5802-4) negative negative Leukocyte esterase [Presence ] in Urine by Automated test strip (test code = 44909-0) negative negative Erythrocytes [#/volume] in Urine by Automated count (test code = 798-9) <1 0-5 Leukocytes [#/area] in Urine sediment by Automated count (test code = 17357-7) <1 0-5 Epithelial cells [Presence] in Urine sediment by Light microscopy (test code = 46673-4) <1 0-5 Bacteria identified in Urine by Culture (test code = 630-4) none detected none detect Casts [#/area] in Urine sediment by Automated count (test code = 91704-2) none detected none detect urine culture added? (test c ode = urine culture added?) no [facility] and Indirect antibody screen panel - Blood 2022-04-18 11:39:00* Test Item Value Reference Range Interpretation Comme nts Rh [Type] in Blood (test cod e = 61989-0) 4+ ABO and Rh group panel - Blo od (test code = 87547-0) A positive [facility] GroupBlood type and Indirect antibody screen panel - Blood 2022-04-18 11:39:00* Test Item Value Reference Range Interpretation Comme nts Rh [Type] in Blood (test cod e = 71494-6) 4+ ABO and Rh group panel - Blo od (test code = 95007-1) A positive [facility] GroupCBC panel - Blood by Automated [id number] 11:34:00* Test Item Value Reference Range Interpretation Comme nts white blood count (test code = white blood count) 6.5 K/uL 4.0-12.3 red blood count (test code = red blood count) 4.52 M/uL 3.80-5.80 hemoglobin (test code = hemoglobin) 13.5 g/dL 11.7-17.2 hematocrit (test code = hematocrit) 39.6 % 35.0-51.0 MCV [Entitic volume] (test c ode = 23227-0) 87.6 fL 83.0-100.0 mean corpuscular hemoglobin (test [...] mean platelet volume) 8.0 fL 9.4-12.6 L [facility] GroupPT/[id number] 11:34:00* Test Item Value Reference Range Interpretation Comme nts prothrombin time (test code = prothrombin time) 9.9 seconds 10.3-12.3 L INR in Blood by Coagulation assay (test code = 92705-9) <0.94 [facility]oplastin [id number] 11:34:00* Test Item Value Reference Range Interpretation Comme nts INR in Blood by Coagulation assay (test code = 59404-4) 24.5 seconds 22.5-37.0 [facility]Comprehensive metabolic 2000 panel - [...] (test code = 6768-6) 91 U/L 40-130 [facility] CountyCreatine kinase [Enzymatic activity/volume] in Serum or [id number] 11:34:00* Test Item Value Reference Range Interpretation Comme nts creatine kinase (test code = creatine kinase) 192 U/L 20-200 [facility] panel - Blood by Automated [id number] 11:34:00* Test Item Value Reference Range Interpretation Comme nts white blood count (test code = white blood count) 6.5 K/uL 4.0-12.3 red blood count (test code = red blood count) 4.52 M/uL 3.80-5.80 hemoglobin (test code = hemoglobin) 13.5 g/dL 11.7-17.2 hematocrit (test code = hematocrit) 39.6 % 35.0-51.0 MCV [Entitic volume] (test c ode = 92834-2) 87.6 fL 83.0-100.0 mean corpuscular hemoglobin (test [...] mean platelet volume) 8.0 fL 9.4-12.6 L [facility]PT/[id number] 11:34:00* Test Item Value Reference Range Interpretation Comme nts prothrombin time (test code = prothrombin time) 9.9 seconds 10.3-12.3 L INR in Blood by Coagulation assay (test code = 16585-1) <0.94 [facility]in [id number] 11:34:00* Test Item Value Reference Range Interpretation Comme nts INR in Blood by Coagulation assay (test code = 19012-8) 24.5 seconds 22.5-37.0 [facility] CountyComprehenve metabolic 2000 panel - Serum or Plasma [...] (test code = 6768-6) 91 U/L 40-130 [facility] CountyCreatine kinase [Enzymatic activity/volume] in Serum or [id number] 11:34:00* Test Item Value Reference Range Interpretation Comme nts creatine kinase (test code = creatine kinase) 192 U/L 20-200 [facility] W Auto Differential panel - [id number] 09:45:00 * Test Item Value Reference Range Interpretation Comme nts white blood count (test code = white blood count) 5.6 K/uL 4.0-12.3 red blood count (test code = red blood count) 4.27 M/uL 3.80-5.80 hemoglobin (test code = hemoglobin) 12.6 g/dL 11.7-17.2 hematocrit (test code = hematocrit) 38.2 % 35.0-51.0 MCV [Entitic volume] (test c ode = 54455-4) 89.5 fL 83.0-100.0 mean corpuscular hemoglobin (test [...] neutrophils/100 leukocytes in Blood (test code = 43766-5) 46.8 % 44.7-82.4 Immature granulocytes [#/vol ume] in Blood (test code = 61357-8) 0.01 K/uL 0.00-0.03 lymphocyte% (test code = lymphocyte%) 36.8 % 10.0-50.0 mono % (test code = mono %) 11.7 % 3.9-13.4 eos % (test code = eos %) 3.6 % 0.0-6.4 Basophils/100 leukocytes in Specimen (test code = 33080-4) 0.9 % 0.2-1.2 Band form neutrophils [#/vol ume] in Blood (test code = 63050-5) 2.64 K/uL 1.78-5.38 Lymphocytes [#/volume] in Sp ecimen by Automated count (test code = 13328-4) 2.07 K/uL 1.32-3.57 mono # (test code [...] (test code = 6768-6) 91 U/L 40-130 [facility]Lip[facility] 1996 panel - Serum or [id number] 09:45:00* Test Item Value Reference Range Interpretation [...] (test code = cholesterol risk ratio) 3.138 [facility] CountyUrinalysis complete W Reflex Culture panel - Urine 2022-01-31 09:45:00* Test Item Value Reference Range Interpretation Comme nts Color of Urine by Auto (test code = 01629-8) yellow Appearance of Urine (test co de = 5767-9) clear clear Glucose [Presence] in Urine by Automated test strip (test code = 16126-2) negative negative Bilirubin.total [Mass/volume ] in Urine (test code = 1978-6) negative negative Ketones [Mass/volume] in Uri ne by Automated test strip (test code = 72191-1) negative negative Specific gravity of Urine by Automated test strip (test code = 85237-5) 1.031 1.003-1.030 H blood urine (test code = blo od urine) negative negative pH of Urine (test code = 2756-5) 6.000 5-9 protein urine (UA) (test cod e = protein urine (UA)) =1+ (30 negative H Urobilinogen [Presence] in Urine (test code = 94477-0) =2.0 0.2-1.0 H Nitrite [Presence] in Urine by Test strip (test code = 5802-4) negative negative Leukocyte esterase [Presence ] in Urine by Automated test strip (test code = 63325-9) negative negative Erythrocytes [#/volume] in Urine by Automated count (test code = 798-9) =1-5 0-5 Leukocytes [#/area] in Urine sediment by Automated count (test code = 84490-0) <1 0-5 Epithelial cells [Presence] in Urine sediment by Light microscopy (test code = 83148-9) <1 0-5 Bacteria identified in Urine by Culture (test code = 630-4) none detected none detect Casts [#/area] in Urine sediment by Automated count (test code = 07338-5) =2-5 none detect urine culture added? (test c ode = urine culture added?) no [facility]Different[facility] panel, method unspecified - [id number] 00:00:00NeutrophilsBandLymphocyteAtypical LymphMonocyteEosinophilBasophilMetamyelocyteAbs Neutrophil Count (Man)Abs Lymph Count (Man)Abs Monocyte Count (Man)Abs Eosinophil Count (Man)Abs Basophil Count (Man)Platelet EstimatePlatelet MorphologyMacrocytosisUmmc [facility] County Hemoglobin A1c [Mass/volume] in [id number] 00:00:00* Test Item Value Reference Range Interpretation Comme nts Hemoglobin A1c [Mass/volume] in Blood (test code = 56505-9) 5.7 % 4.0-6.0 [facility]Com[facility] 2000 panel - [...] (test code = 6768-6) 91 U/L 40-130 [facility] CountyCobalamin (Vitamin B12) [Mass/volume] in Serum or Plasma 2021-11-18 00:00:00* Test Item Value Reference Range Interpretation Comme [facility] vitamin B12, serum (test cod e = vitamin B12, serum) 330 [facility] W Auto Differential panel - [id number] 03:50:00 * Test Item Value Reference Range Interpretation Comme [facility] white blood count (test code = white blood count) 10.6 K/uL 4.0-12.3 red blood count (test code = red blood count) 4.27 M/uL 3.80-5.80 hemoglobin (test code = hemoglobin) 12.1 g/dL 11.7-17.2 hematocrit (test code = hematocrit) 36.6 % 35.0-51.0 MCV [Entitic volume] (test c ode = 87314-1) 85.7 fL 83.0-100.0 mean corpuscular hemoglobin (test [...] neutrophils/100 leukocytes in Blood (test code = 15251-0) 72.9 % 44.7-82.4 Immature granulocytes [#/vol ume] in Blood (test code = 17850-7) 0.10 K/uL 0.00-0.03 H lymphocyte% (test code = lymphocyte%) 19.0 % 10.0-50.0 mono % (test code = mono %) 7.1 % 3.9-13.4 eos % (test code = eos %) 0 % 0.0-6.4 Basophils/100 leukocytes in Unspecified specimen (test code = 74371-6) 0.1 % 0.2-1.2 L Band form neutrophils [#/vol ume] in Blood (test code = 97877-0) 7.75 K/uL 1.78-5.38 H Lymphocytes [#/volume] in Unspecified specimen by Automated count (test code = 87935-7) 2.02 K/uL 1.32-3.57 mono # (test code = mono #) 0.75 K/uL 0.30-0.82 eos # (test code = eos #) 0.00 K/uL 0.04-0.54 L basophil # (test code = baso lai #) 0.01 K/uL 0.01-0.08 NRBC% (test code = NRBC%) 0 /100 WBC 0-0.2 NRBC# (test code = NRBC#) 0 K/uL [facility] metabolic 2000 panel - Serum or [id number] 03:50:00* Test Item Value Reference Range Interpretation [...] = calcium level) 8.0 mg/dL 8.6-10.0 L [facility]Differential panel, method unspecified - [id number] 00:00:00NeutrophilsBandLymphocyteAtypical LymphMonocyteEosinophilBasophilMetamyelocyteMyelocytePromyelocyteBlastsNucleated Red Blood CellPlasma CellDifferential CommentAbs Neutrophil Count (Man)Abs Lymph Count (Man)Abs Monocyte Count (Man)Abs Eosinophil Count (Man)Abs Basophil Count (Man)Platelet EstimatePlatelet MorphologyHypochromasiaPoikilocytosisAnisocytosisMicrocytosisMacrocytosisSchisto cytesTarget CellsStomatocyteToxic GranulationBurr CellsHypersegmented PolysSmudge CellsUmmc Holmes CountyCB W Auto Differential panel - Blood 2021-09-30 03:28:00* Test Item Value Reference Range Interpretation Comme nts white blood count (test code = white blood count) 10.1 K/uL 4.0-12.3 red blood count (test code = red blood count) 4.17 M/uL 3.80-5.80 hemoglobin (test code = hemoglobin) 12.0 g/dL 11.7-17.2 hematocrit (test code = hematocrit) 37.2 % 35.0-51.0 MCV [Entitic volume] (test c ode = 39455-7) 89.2 fL 83.0-100.0 mean corpuscular hemoglobin (test [...] neutrophils/100 leukocytes in Blood (test code = 57245-1) 85.9 % 44.7-82.4 H Immature granulocytes [#/vol ume] in Blood (test code = 43261-9) 0.11 K/uL 0.00-0.03 H lymphocyte% (test code = lymphocyte%) 10.0 % 10.0-50.0 mono % (test code = mono %) 3.0 % 3.9-13.4 L eos % (test code = eos %) 0 % 0.0-6.4 Basophils/100 leukocytes in Unspecified specimen (test code = 96170-8) 0.0 % 0.2-1.2 L Band form neutrophils [#/vol ume] in Blood (test code = 94177-7) 8.69 K/uL 1.78-5.38 H Lymphocytes [#/volume] in Unspecified specimen by Automated count (test code = 77599-0) 1.01 K/uL 1.32-3.57 L mono # (test code = mono #) 0.30 K/uL 0.30-0.82 eos # (test code = eos #) 0.00 K/uL 0.04-0.54 L basophil # (test code = baso lai #) 0.00 K/uL 0.01-0.08 L NRBC% (test code = NRBC%) 0 /100 WBC 0-0.2 NRBC# (test code = NRBC#) 0 K/uL [facility] 2000 panel - Serum or [id number] 03:28:00* Test Item Value Reference Range Interpretation [...] = calcium level) 8.3 mg/dL 8.6-10.0 L [facility]Differential panel, method unspecified - [id number] 00:00:00NeutrophilsBandLymphocyteAtypical LymphMonocyteEosinophilBasophilMetamyelocyteMyelocytePromyelocyteBlastsNucleated Red Blood CellPlasma CellDifferential CommentAbs Neutrophil Count (Man)Abs Lymph Count (Man)Abs Monocyte Count (Man)Abs Eosinophil Count (Man)Abs Basophil Count (Man)Platelet EstimatePlatelet MorphologyHypochromasiaPoikilocytosisAnisocytosisMicrocytosisMacrocytosisSchisto cytesTarget CellsStomatocyteToxic GranulationBurr CellsHypersegmented PolysSmudge CellsMataMonroe Regional HospitalClostridioides difficile toxin A+B [Presence] in [id number] 08:35:00* Test Item Value Reference Range Interpretation Comme nts results (test code = results) Clostridioides difficile BI-[id number] strain DNA [Presence] in Stool by PRANAV with probe detection (test code = 31146-8) 027 presumptive negative [facility]uk[facility]Pres[facility] in Stool by Light microscopy 2021-09-29 08:35:00ResultsUmmc [facility] CountyCBC W Auto Differential panel - [id number] 02:50:00* Test Item Value Reference Range Interpretation Comme nts white blood count (test code = white blood count) 12.0 K/uL 4.0-12.3 red blood count (test code = red blood count) 4.17 M/uL 3.80-5.80 hemoglobin (test code = hemoglobin) 11.9 g/dL 11.7-17.2 hematocrit (test code = hematocrit) 36.2 % 35.0-51.0 MCV [Entitic volume] (test c ode = 13586-3) 86.8 fL 83.0-100.0 mean corpuscular hemoglobin (test [...] neutrophils/100 leukocytes in Blood (test code = 63375-3) 89.1 % 44.7-82.4 H Immature granulocytes [#/vol ume] in Blood (test code = 55387-7) 0.09 K/uL 0.00-0.03 H lymphocyte% (test code = lymphocyte%) 7.4 % 10.0-50.0 L mono % (test code = mono %) 2.8 % 3.9-13.4 L eos % (test code = eos %) 0 % 0.0-6.4 Basophils/100 leukocytes in Unspecified specimen (test code = 98879-1) 0.0 % 0.2-1.2 L Band form neutrophils [#/vol ume] in Blood (test code = 72757-2) 10.72 K/uL 1.78-5.38 H Lymphocytes [#/volume] in Unspecified specimen by Automated count (test code = 31111-4) 0.89 K/uL 1.32-3.57 L mono # (test code = mono #) 0.34 K/uL 0.30-0.82 eos # (test code = eos #) 0.00 K/uL 0.04-0.54 L basophil # (test code = baso lai #) 0.00 K/uL 0.01-0.08 L NRBC% (test code = NRBC%) 0 /100 WBC 0-0.2 NRBC# (test code = NRBC#) 0 K/uL [facility] 2000 [facility] - Serum or [id number] 02:50:00* Test Item Value Reference Range Interpretation [...] code = calcium level) 8.6 mg/dL 8.6-10.0 [facility]Differential panel, method unspecified - [id number] 00:00:00NeutrophilsBandLymphocyteAtypical LymphMonocyteEosinophilBasophilMetamyelocyteMyelocytePromyelocyteBlastsNucleated Red Blood CellDifferential CommentAbs Neutrophil Count (Man)Abs Lymph Count (Man)AbsMonocyte Count (Man)Abs Eosinophil Count (Man)Abs Basophil Count (Man)Platelet EstimatePlatelet Morp hologyHypochromasiaPoikilocytosisAnisocytosisMicrocytosisMacrocytosisTarget CellsBurr CellsHypersegmented PolysMatagoWinston Medical Center metabolic 2000 panel - Serum or [id number] 03:05:00* Test Item Value Reference Range Interpretation [...] code = calcium level) 9.0 mg/dL 8.6-10.0 [facility] W Auto Differential panel - [id number] 03:05:00 * Test Item Value Reference Range Interpretation Comme nts white blood count (test code = white blood count) 14.1 K/uL 4.0-12.3 red blood count (test code = red blood count) 4.35 M/uL 3.80-5.80 hemoglobin (test code = hemoglobin) 12.5 g/dL 11.7-17.2 hematocrit (test code = hematocrit) 37.8 % 35.0-51.0 MCV [Entitic volume] (test c ode = 48071-3) 86.9 fL 83.0-100.0 mean corpuscular hemoglobin (test [...] neutrophils/100 leukocytes in Blood (test code = 44841-3) 88.3 % 44.7-82.4 H Immature granulocytes [#/vol ume] in Blood (test code = 69832-6) 0.09 K/uL 0.00-0.03 H lymphocyte% (test code = lymphocyte%) 8.2 % 10.0-50.0 L mono % (test code = mono %) 2.8 % 3.9-13.4 L eos % (test code = eos %) 0 % 0.0-6.4 Basophils/100 leukocytes in Unspecified specimen (test code = 84006-5) 0.1 % 0.2-1.2 L Band form neutrophils [#/vol ume] in Blood (test code = 69063-1) 12.42 K/uL 1.78-5.38 H Lymphocytes [#/volume] in Unspecified specimen by Automated count (test code = 51519-7) 1.15 K/uL 1.32-3.57 L mono # (test code = mono #) 0.40 K/uL 0.30-0.82 eos # (test code = eos #) 0.00 K/uL 0.04-0.54 L basophil # (test code = baso lai #) 0.01 K/uL 0.01-0.08 NRBC% (test code = NRBC%) 0 /100 WBC 0-0.2 NRBC# (test code = NRBC#) 0 K/uL [facility]Differential panel, method unspecified - [id number] 00:00:00NeutrophilsBandLymphocyteAtypical LymphMonocyteEosinophilBasophilMetamyelocyteMyelocytePromyelocyteBlastsNucleated Red Blood CellDifferential CommentAbs Neutrophil Count (Man)Abs Lymph Count (Man)AbsMonocyte Count (Man)Abs Eosinophil Count (Man)Abs Basophil Count (Man)Platelet EstimatePlatelet Morp hologyHypochromasiaPoikilocytosisAnisocytosisMicrocytosisMacrocytosisTarget CellsBurr CellsScott Regional Hospital W Auto Differential [...] MCV [Entitic volume] (test c ode = 29808-6) 86.8 fL 83-100 mean corpuscular hemoglobin (test [...] neutrophils/100 leukocytes in Blood (test code = 92718-3) 36.0 % 44.7-82.4 L Immature granulocytes [#/vol ume] in Blood (test code = 07683-4) 0.0 K/uL 0.0-0.03 lymphocyte% (test code = lymphocyte%) 52.2 % 10.0-50.0 H mono % (test code = mono %) 8.4 % 3.9-13.4 eos % (test code = eos %) 2.7 % 0.0-6.4 Basophils/100 leukocytes in Unspecified specimen (test code = 62773-4) 0.6 % 0.2-1.2 Band form neutrophils [#/vol ume] in Blood (test code = 73061-0) 2.49 K/uL 1.78-5.38 Lymphocytes [#/volume] in Unspecified specimen by Automated count (test code = 38554-6) 3.6 K/uL 1.32-3.57 H mono # (test code = mono #) 0.58 K/uL 0.30-0.82 eos # (test code = eos #) 0.19 K/uL 0.04-0.54 basophil # (test code = baso lai #) 0.04 K/uL 0.01-0.08 NRBC% (test code = NRBC%) 0 /100 WBC 0-0.2 NRBC# (test code = NRBC#) 0 K/uL [facility] CountyPT/[id number] 10:10:00* Test Item Value Reference Range Interpretation Comme nts prothrombin time (test code = prothrombin time) 9.9 seconds 10.3-12.3 L INR in Blood by Coagulation assay (test code = 97159-8) <0.94 [facility]Com[facility] 2000 panel - [...] (test code = 6768-6) 124 U/L 40-130 [facility] CountyCreatine kinase [Enzymatic activity/volume] in Serum or [id number] 10:10:00* Test Item Value Reference Range Interpretation Comme nts creatine kinase (test code = creatine kinase) 243 U/L 20-200 H [facility]Differential panel, method unspecified - [id number] 00:00:00NeutrophilsBandLymphocyteAtypical LymphMonocyteEosinophilBasophilMetamyelocyteMyelocyteAbs Neutrophil Count (Man)Abs Lymph Count (Man)Abs Monocyte Count (Man)Abs Eosinophil Count (Man)Abs Basophil Count (Man)Platelet EstimateHypochromasiaMataMonroe Regional Hospitalpartial thromboplastin [id number] 00:00:00* Test Item Value Reference Range Interpretation Comme nts INR in Blood by Coagulation assay (test code = 14620-6) 23.6 seconds 22.5-37.0 [facility] CountyCreatine kinase.MB [Mass/volume] in Serum or Plasma 2021-09-25 00:00:00* Test Item Value Reference Range Interpretation Comme nts Creatine kinase.MB [Mass/vol ume] in Serum or Plasma by Immunoassay (test code = 44002-4) 1.7 NG/mL 0.0-3.6 [facility] Countyltrop [id number] 00:00:00* Test Item Value Reference Range Interpretation Comme nts Troponin T.cardiac [Mass/vol ume] in Blood (test code = 38164-0) <0.01 0-0.011 [facility]
--- NOTE | 2024-03-10 04:01 | ER ---
Nurse's Notes [facility] Name: Piter Iglesias Age: 58 yrs Sex: Male : 1965 Arrival Date: 03/10/2024 Time: 01:27 Bed 6 Private MD: Diagnosis: Chronic pain, not elsewhere classified Presentation: 03/10 01:41 Chief complaint: Patient states: my entire body hurts. right knee swelling and back lg3 swelling X1 week. stomach pain. numb on one side. i have a disease so my shoulder hurts. i have wires in me that make me hurt. Coronavirus screen: Client denies travel out of the [place] in the last 14 days. At this time, the client does not indicate any symptoms associated with coronavirus-19. Ebola Screen: No symptoms or risks identified at this time. Initial Sepsis Screen: Does the patient meet any 2 criteria? No. Patient's initial sepsis screen is negative. Does the patient have a suspected source of infection? No. Patient's initial sepsis screen is negative. Risk Assessment: Do you want to hurt yourself or someone else? Patient reports no desire to harm self or others. Onset of symptoms is unknown. 01:41 Method Of Arrival: EMS: [facility] lg3 01:41 Acuity: AISHA 3 lg3 Triage Assessment: 01:44 General: Appears in no apparent distress. Behavior is cooperative, anxious, fussy. lg3 Pain: Complains of pain in all over. EENT: No deficits noted. No signs and/or symptoms were reported regarding the EENT system. Neuro: No deficits noted. Campbell Agitation-Sedation Scale (RASS): 0 - Alert and Calm Level of Consciousness is awake, alert, obeys commands, Oriented to person, place, time, situation. Cardiovascular: No deficits noted. Capillary refill < 3 seconds Clubbing of nail beds is absent JVD is absent Patient's skin is warm and dry. Respiratory: No deficits noted. Airway is patent Respiratory effort is even, unlabored, Respiratory pattern is regular, symmetrical. GI: Abdomen is round non-distended, obese, Reports lower abdominal pain, upper abdominal pain. : No deficits noted. Derm: No deficits noted. No signs and/or symptoms reported regarding the dermatologic system. Skin is intact, is healthy with good turgor, Skin is dry, Skin is normal, Skin temperature is warm. Musculoskeletal: No deficits noted. Circulation, motion, and sensation intact. Range of motion: intact in all extremities. Historical: - Allergies: 01:44 Nuts; lg3 - PMHx: :44 elevated creatinine levels; Anxiety; Asthma; Crohn's Disease; depressive disorder; lg3 diabetes mellitus; elevated liver enzymes; Hyperlipidemia; Hypertension; spinal stenosis; ulcerative colitis; - PSHx: :44 Cholecystectomy; intestinal Surgery; lg3 - Immunization history:: Adult Immunizations up to date. - Infectious Disease History:: Denies. - Social history:: Smoking status: Patient denies any tobacco usage or history of. Patient/guardian denies using alcohol, street drugs. Screenin:11 [facility] ED Fall Risk Assessment (Adult) History of falling in the last 3 months, cp4 including since admission No falls in past 3 months (0 pts) Confusion or Disorientation No (0 pts) Intoxicated or Sedated No (0 pts) Impaired Gait No (0 pts) Mobility Assist Device Used No (0 pt) Altered Elimination No (0 pt) Score/Fall Risk Level 0 - 2 = Low Risk Oriented to surroundings, Maintained a safe environment, Assessed \\T\\ reinforced patient's understanding of fall precautions, Hourly rounding (assess needs \\T\\ fall precautionary measures) done. Abuse screen: Denies threats or abuse. Nutritional screening: No deficits noted. Tuberculosis screening: No symptoms or risk factors identified. Assessment: 04:11 General: Appears uncomfortable, Behavior is calm, cooperative, appropriate for age. cp4 Pain: Complains of pain in "all over". Musculoskeletal: Reports pain in "all over". 04:14 Reassessment: Dispo pending. Patient on shot time. cp4 Vital Signs: 01:41 BP 116 / 77; Pulse 87; Resp 17 S; Temp 97.4(O); Pulse Ox 100% on R/A; Weight 86.18 kg lg3 (R); Height 5 ft. 3 in. (R); 04:34 BP 143 / 88; Pulse 84; Resp 18; Temp 97; Pulse Ox 100% ; cp4 01:41 Body Mass Index 33.66 (86.18 kg, 160.02 cm) lg3 ED Course: 01:29 Patient arrived in ED. ec2 01:44 Triage completed. lg3 01:44 Arm band placed on right wrist. lg3 01:54 Brad Koroma MD is Attending Physician. ec2 04:11 Bed in low position. Call light in reach. Side rails up X 1. Provided Education on:. cp4 Provided Education on: viral illness. 04:11 No provider procedures requiring assistance completed. Patient did not have IV access cp4 during this emergency room visit. Administered Medications: 04:11 Drug: predniSONE PO 40 mg PO once Route: PO; cp4 04:36 Follow up: Response: No adverse reaction cp4 04:11 Drug: Ketorolac IM 30 mg IM once Route: IM; Site: right deltoid; cp4 04:36 Follow up: Response: No adverse reaction cp4 04:11 Drug: Acetaminophen PO 1000 mg PO once Route: PO; cp4 04:36 Follow up: Response: No adverse reaction cp4 Medication: 04:11 VIS not applicable for this client. cp4 Outcome: 04:00 Discharge ordered by MD. ec2 04:35 Discharged to home ambulatory, cp4 04:35 Condition: stable 04:35 Discharge instructions given to patient, Instructed on discharge instructions, follow up and referral plans. medication usage, Demonstrated understanding of instructions, follow-up care, medications, Prescriptions given X 1, 04:37 Patient left the ED. cp4 Signatures: Dona Hopkins RN RN 3 Brad Koroma MD MD 2 Anais Braga cp4
--- NOTE | 2024-03-10 04:01 | EDPHYS ---
Physician Documentation [facility] Name: Piter Iglesias Age: 58 yrs Sex: Male : 1965 Arrival Date: 03/10/2024 Time: 01:27 Bed 6 Private MD: ED Physician HPI: 03/10 03:58 This 58 yrs old Black Male presents to ER via EMS with complaints of Body Pain. ec2 03:58 Patient arrives today for evaluation of generalized body pain. Patient reports that he ec2 is having back pain, knee pain, shoulder pain, all of these pains are worsened with movement. Patient reports that he needs medications for his "inflammation". Denies any difficulty breathing, denies chest pain.. Historical: - Allergies: 01:44 Nuts; lg3 - PMHx: :44 elevated creatinine levels; Anxiety; Asthma; Crohn's Disease; depressive disorder; lg3 diabetes mellitus; elevated liver enzymes; Hyperlipidemia; Hypertension; spinal stenosis; ulcerative colitis; - PSHx: 01:44 Cholecystectomy; intestinal Surgery; lg3 - Immunization history:: Adult Immunizations up to date. - Infectious Disease History:: Denies. - Social history:: Smoking status: Patient denies any tobacco usage or history of. Patient/guardian denies using alcohol, street drugs. ROS: 03:58 Constitutional: as per hpi ec2 Exam: 03:58 Constitutional: GEN: NAD Head: atraumatic Eyes: EOMI Ears: External ears are ec2 normal. CV: regular rate LUNGS: no respiratory distress ABD: non-distended SKIN: no evidence of rashes MSK: no evidence of trauma, no C/T/L-spine TTP or deformities or crepitus or ecchymosis appreciated. Intact bilateral lower extremity strength. No chest wall deformities. NEURO: moves all extremities equally Vital Signs: 01:41 BP 116 / 77; Pulse 87; Resp 17 S; Temp 97.4(O); Pulse Ox 100% on R/A; Weight 86.18 kg lg3 (R); Height 5 ft. 3 in. (R); 04:34 BP 143 / 88; Pulse 84; Resp 18; Temp 97; Pulse Ox 100% ; cp4 01:41 Body Mass Index 33.66 (86.18 kg, 160.02 cm) lg3 MDM: 03:32 Patient medically screened. ec2 03:58 Data reviewed: vital signs. ED course: Patient arrives today for evaluation of multiple ec2 complaints. Examination remarkable for well-appearing nontoxic eventual without evidence of focal deformities or crepitus or traumatic injury. Will give the patient a steroid, Tylenol and Toradol. Will discharge patient home and have the patient follow-up with his primary care doctor for his multiple maladies.. Administered Medications: 04:11 Drug: predniSONE PO 40 mg PO once Route: PO; cp4 04:36 Follow up: Response: No adverse reaction cp4 04:11 Drug: Ketorolac IM 30 mg IM once Route: IM; Site: right deltoid; cp4 04:36 Follow up: Response: No adverse reaction cp4 04:11 Drug: Acetaminophen PO 1000 mg PO once Route: PO; cp4 04:36 Follow up: Response: No adverse reaction cp4 Disposition Summary: 03/10/24 04:00 Discharge Ordered Notes: Location: Home ec2 Condition: Stable ec2 Diagnosis - Chronic pain, not elsewhere classified ec2 Followup: ec2 - With: Private Physician - When: - Reason: Re-evaluation by your physician Discharge Instructions: - Discharge Summary Sheet ec2 - Chronic Back Pain, [id number] ec2 Forms: - Medication Reconciliation Form ec2 - Antibiotic Education ec2 - Prescription Opioid Use ec2 - Patient Portal Instructions ec2 - Leadership Thank You Letter ec2 Prescriptions: - Prednisone 20 mg Oral Tablet - take 1 tablet ORAL route once daily for 5 days; 5 tablet; Refills: 0, Product ec2 Selection Permitted Signatures: Dona Hopkins RN RN lg3 Brad Koroma MD MD ec2 Anais Braga cp4
[2024-03-10] MEDS ORDERED: predniSONE 20 MG TAB ONE (04:05)
[2024-03-10] MEDS ORDERED: ACETAMINOPHEN 500 MG TAB ONE (04:06)
[2024-03-10] MEDS ORDERED: KETOROLAC 30 MG/ML INJ ONE (04:06)
[2024-03-10 05:30] VITALS: BP 143/88; TEMP 97; O2SAT 100
== END 2024-03-10 04:37 | disposition home or self-care (01) ==
LOC: ER 01:27
DX: G89.29 Other chronic pain (principal); Z91.018 Allergy to other foods
CPT/HCPCS: 96372; 99284; J7512

== ENCOUNTER 2024-03-10 08:17 | Emergency (ER) | payer OTHER ==
--- OUTSIDE RECORDS SUMMARY | 2024-03-10 08:22 | XMS REPORT | Continuity of Care Document ---
Author Name Unknown Address [address] [facility] [address] [place] [address] [facility] thconnect Address [address] [facility] [address] [place] [address] Care Team Providers Care Research Group Director Name Role Phone ANGEL TIWARI Primary Care [...] Attending Clinician Unavailable Parker Mina Attending Clinician UnavailDenise Resendez Attending Clinician UnavailShira Cunningham Attending Clinician Unavailable [...] on Date Source [facility] H[facility] 15 [id number] 2024 00:00:00 MEDICARE-PART B 5 [id number] 2023 00:00:00 [facility] [place] H[place] 7 [id number] 2023 00:00:00 WELLCARE DUAL ACCESS OPEN PPO [id number] 2022 00:00:00 MEDICAID [facility] [id number] 2022 00:00:00 [facility] (MEDICARE REPLACEMENT/ADVANTA GE - HMO) [id number] 2021 00:00:00 [place] [facility] (INSTITUTIONAL) [id number] [facility] (MEDICARE REPLACEMENT/ADVANTA GE - PPO) [id number] [place] [id number] [facility] (MEDICARE REPLACEMENT/ADVANTA GE - HMO) [id number] 2021 00:00:00 [employer] (MEDICARE REPLACEMENT/ADVANTA GE - PPO) [id number] Problems Condition Name Condition Details Condition Category Status Onset Date Resolution Date Last Treatment Date Treating Clinician Comments Source [facility] adult exam Well adult exam Disease [...] Hyperlipid emia Problem Active 03-30 00:00: 00 [facility] Benign essential hypertensi on Benign Essential Hypertensi on Problem Active 03-30 00:00: 00 [facility] Mixed anxiety and depressive disorder Mixed Anxiety and Depressive Disorder Problem Active -16 00:00: 00 [facility] Gastro-eso phageal reflux disease with esophagiti s Gastro-eso phageal Reflux Disease with Esophagiti s Problem Active 10-18 00:00: 00 [facility] Crohn's disease of colon Crohn's Disease of Colon Problem Active 10-18 00:00: 00 [facility] Hyperchole sterolemia Hyperchole sterolemia Problem Active 2020-09 00:00: 00 [facility] Hypertensi ve disorder Hypertensi ve Disorder Problem Active 2020-09 00:00: 00 [facility] No known active problems No known active problems Disease [facility] Allergies, Adverse Reactions, Alerts Allergy Name Allergy Type Status Severity Reaction(s) Onset Date Inactive Date Treating Clinician Comments Source NO KNOWN ALLERGIE S Drug Class Active [facility] Social History Social Habit Start Date Stop Date Quantity Comments Source Sexual orientation Zulema larry Tyrel - External Alcohol intake 2023-08-31 00:00:00 2023-08-31 00:00:00 Lifetime non-drinker (finding) Ivelisse Sarah - External History of Social function 2023-08-22 00:00:00 2023-08-22 00:00:00 Ivelisse Sarah - External Exposure to SARS-CoV-2 (event) 2022-07-23 00:00:00 2022-08-02 02:07:00 Not sure [facility] Sex Assigned At 1965 00:00:00 1965 00:00:00 Ivelisse Sarah - External Smoking Status Start Date Stop Date Source Current Every Day Smoker [facility] Tobacco smoking consumption unknown [facility] Never smoked tobacco Ivelisse Sarah - External [...] MG oral Tablet 2022-09 00:00: 00 Yes [id number] 600mg Take 1 tablet (600 mg total) by mouth 3 times daily. Ivelisse perez Duloxetine HCl [address] Particles 2022-09 00:00: 00 Yes [id number] 30mg Take 1 capsule (30 mg total) by mouth daily. Ivelisse perez Meloxicam 15 MG oral Tablet 2022-09 00:00: 00 10-16 05:59 :00 No [id number] 15mg Take 1 tablet (15 mg total) by mouth daily. Ivelisse perez Amlodipine Besylate 10 MG oral Tablet 2022-09 00:00: 00 Yes [id number] 10mg Take 1 tablet (10 mg total) by mouth daily. Ivelisse perez Cyclobenzap rine HCl 10 MG oral Tablet 2022-09 00:00: 00 Yes [id number] 10mg Q.5D Take 1 tablet (10 mg total) by mouth 2 times daily as needed No driving on medication . Ivelisse perez hydrOXYzine HCl 25 MG oral Tablet 2022-09 00:00: 00 Yes [id number] 25mg QD Take 1 tablet (25 mg total) by mouth daily as needed. Ivelisse perez Metformin HCl 500 MG oral Tablet 2022-09 00:00: 00 Yes [id number] 500mg Take 1 tablet (500 mg total) by mouth every morning. Ivelisse perez Gabapentin 800 MG oral Tablet 2022-09 00:00: 00 08-31 00:00 :00 No [id number] 800mg Take 1 tablet (800 mg total) [...] perez Vitamin D, Ergocalcife rol, 1.25 MG (52673 UT) oral Capsule 9-09 00:00: 00 Yes [id number] Take 1 capsule (50,000 units total) by mouth once a week. Ivelisse perez OneTouch Ultra in vitro Strip 30 00:00: 00 Yes 2 times daily. Ivelisse perez Lancets (OneTouch Delica Plus [id number]) does not apply Misc 05-15 00:00: 00 Yes 2 times daily. Ivelisse perez Lancets (OneTouch Delica Plus [id number]) does not apply Misc 05-15 00:00: 00 [...] 2021-09 10:15: 00 08-02 10:15 :00 No [id number] 75mL 75 mL, Intravenou s, ONCE, 1 dose, On Mon08/02/22 at 0415, Routine [facility] ondansetron (ZOFRAN) 4 mg tablet 2021-09 00:00: 00 Yes [id number] 4mg Take 1 tablet by mouth every 8 (eight) hours as needed for Nausea and Vomiting (N/V). [facility] albuterol sulfate HFA 90 mcg/actuati on aerosol inhaler INHALE TWO (2) PUFFS BY MOUTH EVERY 4 TO 6 HOURS. albuterol sulfate HFA 90 mcg/actuati on aerosol inhaler INHALE TWO (2) PUFFS BY MOUTH EVERY 4 TO 6 HOURS. No albuterol sulfate HFA 90 mcg/actuat ion aerosol inhaler INHALE TWO (2) PUFFS BY MOUTH EVERY 4 TO 6 HOURS. [facility] cyanocobala min (vit B-12) 1,000 mcg/mL injection solution Inject 1 mL every month by subcutaneou s route. cyanocobala min (vit B-12) 1,000 mcg/mL injection solution Inject 1 mL every month by subcutaneou s route. No 1mL cyanocobal perez (vit B-12) 1,000 mcg/mL injection solution Inject 1 mL every month by subcutaneo us route. [facility] famotidine 40 mg tablet TAKE 1 TABLET BY MOUTH ONCE DAILY IN THE EVENING famotidine 40 mg tablet TAKE 1 TABLET BY MOUTH ONCE DAILY IN THE EVENING No famotidine 40 mg tablet TAKE 1 TABLET BY MOUTH ONCE DAILY IN THE EVENING [facility] gabapentin 600 mg tablet Take 0.5 tablets twice a day by oral route for 30 days. gabapentin 600 mg tablet Take 0.5 tablets twice a day by oral route for 30 days. No .5 BID gabapentin 600 mg tablet Take 0.5 tablets twice a day by oral route for 30 days. [facility] ibuprofen 800 mg tablet ibuprofen 800 mg tablet No ibuprofen 800 mg tablet [facility] Medrol (Vignesh) 4 mg tablets in a dose pack Take 1 dose pk every day by oral route. Medrol (Vignesh) 4 mg tablets in a dose pack Take 1 dose pk every day by oral route. No 1dose pk(s) Q1D Medrol (Vignesh) 4 mg tablets in a dose pack Take 1 dose pk every day by oral route. [facility] metronidazo le 500 mg tablet TAKE ONE (1) TABLET(S) BY MOUTH THREE TIMES A DAY. metronidazo le 500 mg tablet TAKE ONE (1) TABLET(S) BY MOUTH THREE TIMES A DAY. No metronidaz ole 500 mg tablet TAKE ONE (1) TABLET(S) BY MOUTH THREE TIMES A DAY. [facility] Mobic 15 mg tablet Take 1 tablet every day by oral route for 7 days. Mobic 15 mg tablet Take 1 tablet every day by oral route for 7 days. No 1 Q1D Mobic 15 mg tablet Take 1 tablet every day by oral route for 7 days. [facility] montelukast 10 mg tablet TAKE 1 TABLET BY MOUTH EVERY DAY montelukast 10 mg tablet TAKE 1 TABLET BY MOUTH EVERY DAY No montelukas t 10 mg tablet TAKE 1 TABLET BY MOUTH EVERY DAY [facility] mupirocin 2 % topical ointment APPLY A SMALL AMOUNT TO THE AFFECTED AREA BY TOPICAL ROUTE 3 TIMES PER DAY mupirocin 2 % topical ointment APPLY A SMALL AMOUNT TO THE AFFECTED AREA BY TOPICAL ROUTE 3 TIMES PER DAY No mupirocin 2 % topical ointment APPLY A SMALL AMOUNT TO THE AFFECTED AREA BY TOPICAL ROUTE 3 TIMES PER DAY [facility] omeprazole 40 mg capsule,del ayed release TAKE 1 CAPSULE BY MOUTH ONCE DAILY BEFORE A MEAL omeprazole 40 mg capsule,del ayed release TAKE 1 CAPSULE BY MOUTH ONCE DAILY BEFORE A MEAL No omeprazole 40 mg capsule,de layed release TAKE 1 CAPSULE BY MOUTH ONCE DAILY BEFORE A MEAL [facility] paroxetine 20 mg tablet Take 1 tablet by mouth once daily paroxetine 20 mg tablet Take 1 tablet by mouth once daily No paroxetine 20 mg tablet Take 1 tablet by mouth once daily [facility] propranolol 20 mg tablet TAKE ONE (1) TABLET(S) BY MOUTH TWICE A DAY. propranolol 20 mg tablet TAKE ONE (1) TABLET(S) BY MOUTH TWICE A DAY. No propranolo l 20 mg tablet TAKE ONE (1) TABLET(S) BY MOUTH TWICE A DAY. [facility] tramadol 50 mg tablet TAKE 1 TABLET EVERY 6 HOURS BY ORAL ROUTE NEEDED. as needed for pain tramadol 50 mg tablet TAKE 1 TABLET EVERY 6 HOURS BY ORAL ROUTE NEEDED. as needed for pain No tramadol 50 mg tablet TAKE 1 TABLET EVERY 6 HOURS BY ORAL ROUTE NEEDED. as needed for pain [facility] Immunizations Ordered Immunization Name Filled Immunization Name Date Status Comments Source Influenza vaccine, quadrivalent, adjuvanted Influenza vaccine, quadrivalent, adjuvanted 2021-08-05 12:11:00 Completed [facility] COVID-19 Vaccine(Pfizer)([facility] 2022)(12yrs+) Unknown Completed Ivelisse Aminybo ld - External Influenza vaccine, quadrivalent, adjuvanted, 65+ Unknown Completed Ivelisse Aminybo ld - External Pneumococcal Vaccine, Conjugate 20 Unknown Completed Ivelisse Seybold - External Shingles IM (Shingrix) Unknown Completed Ivelisse Seybold - External Shingles IM (Shingrix) Unknown Completed Ivelisse Seybold - External COVID-19 Vaccine(Pfizer)([facility] 2022)(12yrs+) Unknown Completed Ivelisse Seybo ld - External Influenza vaccine, quadrivalent, adjuvanted, 65+ Unknown Completed Ivelisse Seybo ld - External Pneumococcal Vaccine, Conjugate 20 Unknown Completed Ivelisse Seybold - External Shingles IM (Shingrix) Unknown Completed Ivelisse Seybold - External Shingles IM (Shingrix) Unknown Completed Ivelisse Seybold - External COVID-19 Vaccine(Pfizer)([facility] 2022)(12yrs+) Unknown Completed Ivelisse Aminybo [...] External Body temperature 2023-08-08 20:15:00 36.83 Blanca Ivelises Seybold - External Respiratory rate 2023-08-08 20:15:00 15 /min Ivelisse Seybold - External Body height 2023-08-08 20:15:00 160 cm Lissa ey Seybold - External Body weight 2023-08-08 20:15:00 68.947 kg Lissa ey Seybold - External BMI 2023-08-08 20:15:00 26.93 kg/m2 Lissa ey Seybold - External Heart rate 2022-08-02 11:30:00 93 /min [facility] Oxygen saturation in Arterial blood by Pulse oximetry 2022-08-02 11:30:00 96 /min [facility] Systolic blood pressure 2022-08-02 11:00:00 134 mm[Hg] [facility] Diastolic blood pressure 2022-08-02 11:00:00 97 mm[Hg] [facility] Respiratory rate 2022-08-02 11:00:00 21 /min [facility] Body temperature 2022-08-02 08:11:00 36.56 Blanca [facility] Body height 2022-08-02 08:11:00 160 cm [facility] Body weight 2022-08-02 08:11:00 79.379 kg [facility] BMI 2022-08-02 08:11:00 31.00 kg/m2 [facility] BP Diastolic 2022-05-05 00:00:00 89 mm[Hg] [facility] Height 2022-05-05 00:00:00 68 [in_i] [facility] BMI (Body Mass Index) 2022-05-05 00:00:00 27.5 kg/m2 [facility] BP Systolic 2022-05-05 00:00:00 132 mm[Hg] [facility] Body Weight 2022-05-05 00:00:00 2891.2 [oz_av] [facility] BP Diastolic 2022-04-27 00:00:00 96 mm[Hg] [facility] Height 2022-04-27 00:00:00 68 [in_i] [facility] BMI (Body Mass Index) 2022-04-27 00:00:00 26.5 kg/m2 [facility] BP Systolic 2022-04-27 00:00:00 131 mm[Hg] [facility] Body Weight 2022-04-27 00:00:00 2792 [oz_av] [facility] BP Diastolic 2022-03-30 00:00:00 67 mm[Hg] [facility] Height 2022-03-30 00:00:00 68 [in_i] [facility] BMI (Body Mass Index) 2022-03-30 00:00:00 26.5 kg/m2 [facility] BP Systolic 2022-03-30 00:00:00 106 mm[Hg] [facility] Body Weight 2022-03-30 00:00:00 2784 [oz_av] [facility] BP Diastolic 2022-02-28 00:00:00 93 mm[Hg] [facility] Height 2022-02-28 00:00:00 68 [in_i] [facility] BMI (Body Mass Index) 2022-02-28 00:00:00 26.5 kg/m2 [facility] BP Systolic 2022-02-28 00:00:00 132 mm[Hg] [facility] Body Weight 2022-02-28 00:00:00 2784 [oz_av] [facility] BP Diastolic 2022-01-31 00:00:00 92 mm[Hg] [facility] Height 2022-01-31 00:00:00 68 [in_i] [facility] BMI (Body Mass Index) 2022-01-31 00:00:00 26.8 kg/m2 [facility] BP Systolic 2022-01-31 00:00:00 128 mm[Hg] [facility] Body Weight 2022-01-31 00:00:00 2816 [oz_av] [facility] BP Diastolic 2022-01-03 00:00:00 87 mm[Hg] [facility] Height 2022-01-03 00:00:00 68 [in_i] [facility] BMI (Body Mass Index) 2022-01-03 00:00:00 26.8 kg/m2 [facility] BP Systolic 2022-01-03 00:00:00 124 mm[Hg] [facility] Body Weight 2022-01-03 00:00:00 2816 [oz_av] [facility] BP Diastolic 2021-12-06 00:00:00 85 mm[Hg] [facility] Height 2021-12-06 00:00:00 68 [in_i] [facility] BMI (Body Mass Index) 2021-12-06 00:00:00 27.4 kg/m2 [facility] BP Systolic 2021-12-06 00:00:00 131 mm[Hg] [facility] Body Weight 2021-12-06 00:00:00 2887 [oz_av] [facility] BP Diastolic 2021-11-18 00:00:00 85 mm[Hg] [facility] Height 2021-11-18 00:00:00 68 [in_i] [facility] BMI (Body Mass Index) 2021-11-18 00:00:00 27.4 kg/m2 [facility] BP Systolic 2021-11-18 00:00:00 133 mm[Hg] [facility] Body Weight 2021-11-18 00:00:00 2880 [oz_av] [facility] BP Diastolic 2021-10-05 00:00:00 89 mm[Hg] [facility] Height 2021-10-05 00:00:00 68 [in_i] [facility] BMI (Body Mass Index) 2021-10-05 00:00:00 27.7 kg/m2 [facility] BP Systolic 2021-10-05 00:00:00 124 mm[Hg] [facility] Body Weight 2021-10-05 00:00:00 2912 [oz_av] [facility] BP Diastolic 2021-08-24 00:00:00 78 mm[Hg] [facility] Height 2021-08-24 00:00:00 68 [in_i] [facility] BMI (Body Mass Index) 2021-08-24 00:00:00 28.6 kg/m2 [facility] BP Systolic 2021-08-24 00:00:00 122 mm[Hg] [facility] Body Weight 2021-08-24 00:00:00 188 [lb_av] [facility] BP Diastolic 2021-08-05 00:00:00 84 mm[Hg] [facility] Height 2021-08-05 00:00:00 68 [in_i] [facility] BMI (Body Mass Index) 2021-08-05 00:00:00 27.5 kg/m2 [facility] BP Systolic 2021-08-05 00:00:00 118 mm[Hg] [facility] Body Weight 2021-08-05 00:00:00 2896 [oz_av] [facility] Procedures Procedure Date / Time Performed Performing Clinician Source URINALYSIS 2022-08-02 10:17:00 Kierra Bautista [facility] CT ABDOMEN PELVIS W CONTRAST 2022-08-02 09:15:15 Kierra Bautista [facility] LIPASE 2022-08-02 08:16:00 Kierra Bautista [facility] HEPATIC FUNCTION PANEL ([id number]) (ALB,T.PRO,BILI T,BU/BC,ALT,AST,ALK PHOS) 2022-08-02 08:16:00 Kierra Bautista [facility] BASIC METABOLIC PANEL (NA, K, CL, CO2, GLUCOSE, BUN, CREATININE, CA) 2022-08-02 08:16:00 Kierra Bautista [facility] CBC WITH DIFF 2022-08-02 08:16:00 [facility] + fibula, 2 view 2022-04-27 00:00:00 [facility] XR, knee, 3 view 2022-04-27 00:00:00 [facility] XR, lumbosacral spine, 2 or 3 view 2022-04-27 00:00:00 [facility] XR, thoracic spine, 2 view 2022-04-27 00:00:00 [facility] XR, shoulder, 2 or more view 2022-04-27 00:00:[address] [facility] [address], abdomen + pelvis, w/o contrast 2022-04-27 00:00:00 [facility] ECG WITH INTERPRETATION 12 LEADS 2021-08-05 00:00:00 [facility] XR, chest, 2 view 2021-08-05 00:00:00 [facility] Cardiac Catheterization 2018-03-18 00:00:00 [facility] Partial Resection of Colon 1999-09-18 00:00:00 [facility] Cholecystectomy [facility] dical [facility] Plan of Care Planned Activity Planned Date Details Comments Source Diagnostic Test Pending 2022-05-05 00:00:00 CMP, serum or plasma [code = CMP, serum or plasma] [facility] Diagnostic Test Pending 2022-05-05 00:00:00 urinalysis, complete [code = urinalysis, complete] [facility] Diagnostic Test Pending 2022-05-05 00:00:00 microalbumin/creat inine, mass ratio, urine [code = microalbumin/creat inine, mass ratio, urine] [facility] Encounters Start Date/Time End Date/Time Encounter Type Admission Type Attending [facility] Facility Care Department Encounter ID Source 2023-06-28 10:30:00 Inpatient DEEJAY BRARY [facility] [id number] [facility] 2024-03-08 00:00:00 2024-03-08 00:00:00 Outpatient RICH SANCHEZ [id number] [facility] 2024-02-21 11:00:00 2024-02-21 11:00:00 Outpatient KADIE CONTRERAS [id number] [facility] 2023-12-13 00:00:00 2023-12-13 00:00:00 Outpatient GRISELDA MCWILLIAMS [id number] [facility] 2023-11-30 15:45:00 2023-11-30 15:45:00 Outpatient GRISELDA MCWILLIAMS [id number] Ivelisse smith 2023-11-27 00:00:00 2023-11-27 00:00:00 Outpatient GRISELDA MCWILLIAMS [id number] [facility] 2023-11-16 00:00:00 2023-11-16 00:00:00 Outpatient PREZAS, RICH IVELISSE RAMOS [id number] Ivelisse Seybold 2023-11-13 00:00:00 2023-11-13 00:00:00 Outpatient MCWILLIAMS, GRISELDA RAMOS [id number] Ivelisse Seybold 2023-11-02 00:00:00 2023-11-02 00:00:00 Outpatient PREZASRICH IVELISSE RAMOS [id number] Ivelisse Seybold 2023-11-02 00:00:00 2023-11-02 00:00:00 Outpatient MCWILLIAMS, GRISELDA RAMOS [id number] Ivelisse Seybold 2023-11-02 00:00:00 2023-11-02 00:00:00 Outpatient MCWILLIAMS, GRISELDA RAMOS [id number] Ivelisse Seybold 2023-11-02 00:00:00 2023-11-02 00:00:00 Outpatient MD [facility]ELISSE WOLFE [id number] [facility] 2023-10-31 00:00:00 2023-10-31 00:00:00 Outpatient PREZAS RICH RAMOS [id number] Ivelisse Seybold 2023-10-19 00:00:00 2023-10-19 00:00:00 Outpatient IVELISSE RAMOS [id number] Ivelisse Seybold 2023-10-17 00:00:00 2023-10-17 00:00:00 Outpatient IVELISSE RAMOS [id number] Ivelisse Seybold 2023-08-31 15:30:00 2023-08-31 15:30:00 Outpatient MCWILLIAMS, GRISELDA RAMOS [id number] Ivelisse Seybold 2023-08-31 13:45:00 2023-08-31 13:45:00 Outpatient MCWILLIAMSGRISELDA [id number] Ivelisse Seybold 2023-08-29 00:00:00 2023-08-29 00:00:00 Outpatient PREZASRICH [id number] Ivelissegeorgiana Sarah 2023-08-29 00:00:00 2023-08-29 00:00:00 Outpatient KADIE CONTRERAS IVELISSE IVELISSE [id number] Ivelisse Sarah 2023-08-25 00:00:00 2023-08-25 00:00:00 Outpatient KADIE CONTRERAS IVELISSE [id number] Ivelisse Sarah 2023-08-23 00:00:00 2023-08-23 00:00:00 Outpatient RICH SANCHEZ IVELISSE RAMOS [id number] Ivelisse Aminjuan 2023-08-22 11:55:00 2023-08-22 11:55:00 Outpatient ESHA IVELISSE RAMOS [id number] Ivelisse Aminjuan 2023-08-22 11:00:00 2023-08-22 11:00:00 Outpatient KADIE CONTRERAS IVELISSE RAMOS [id number] Ivelisse Aminjuan 2023-08-18 00:00:00 2023-08-18 00:00:00 Outpatient IVELISSE RAMOS [id number] Ivelisse [facility] 2023-08-16 10:10:00 2023-08-16 10:10:00 Outpatient IVELISSE RAMOS [id number] Ivelisse [facility] 2023-08-16 00:00:00 2023-08-16 00:00:00 Outpatient IVELISSE RAMOS [id number] Ivelisse [facility] 2023-08-08 14:45:00 2023-08-08 14:45:00 Outpatient ROGERS SHIAN IVELISSE RAMOS [id number] Ivelisse [facility] 2023-08-08 14:30:00 2023-08-08 14:30:00 Outpatient KADIE CONTRERAS IVELISSE RAMOS [id number] Ivelisse [facility] 2022-08-02 02:08:00 2022-08-02 06:26:00 Emergency X KIERRA BAUTISTA [facility] ERT [id number] [facility] 2022-08-02 02:08:00 2022-08-02 06:26:00 Emergency Kierra Bautista S [facility] [id number] [facility] 2022-06-13 00:00:00 2022-06-13 00:00:[address] Koudela_A [facility] [id number] [facility] 2022-05-18 16:09:00 2022-05-18 18:58:00 Emergency ER Halle Cruz [facility] [id number] [facility] 2022-05-05 10:53:00 2022-05-05 10:53:00 Outpatient AURELIO VÍCTORSAMARA MAHONEYLEY [facility] [id number] [facility] 2022-05-05 00:00:00 2022-05-05 00:00:00 Ariel Saldivar PA-C: [address] [id number] , Ph. Leonid [facility] [id number] 0818 [facility] 2022-04-27 11:14:00 2022-04-27 11:14:00 Outpatient KRISTA TREVINOSAMARA GUZMANLEY [facility] [id number] [facility] 2022-04-27 00:00:00 2022-04-27 00:00:00 RADHA PetitC: [address], [place] [address] , Ph. Yariel_Alfredo [facility] [id number] 0810 [facility] 2022-04-18 13:18:00 2022-04-18 17:27:00 Emergency ER Parker Mina [facility] [id number] [facility] 2022-04-15 00:00:00 2022-04-15 00:00:00 [facility] [id number] [facility] 2022-03-30 00:00:00 2022-03-30 00:00:00 Ariel Saldivar PA-C: [address], [place] [address] , Ph. Yariel_A [facility] [id number] 0713 [facility] 2022-02-28 00:00:00 2022-02-28 00:00:00 Ariel Saldivar PA-C: [address], [place] [address] , Ph. Yariel_A [facility] 612 [facility] 2022-02-25 13:30:00 2022-02-25 19:22:00 Emergency ER Denise Rider [facility] [id number] [facility] 2022-02-05 12:33:00 2022-02-05 12:33:[address] Yariel_A [facility] [id number] [facility] 2022-01-31 11:31:00 2022-01-31 11:31:00 Outpatient ARIEL MARADIAGA [facility] [id number] [facility] 2022-01-31 00:00:00 2022-01-31 00:00:00 Ariel Saldivar PA-C: [address], [place] [address] , Ph. Yariel_Alfredo [facility] 16 [facility] 2022-01-12 09:58:00 2022-01-12 09:58:00 Outpatient Shira Kamara [facility] [id number] [facility] 2022-01-03 00:00:00 2022-01-03 00:00:00 Ariel Saldivar PA-C: [address], [place] [address] , Ph. Yariel_Alfredo [facility] [facility] 2021-12-17 06:11:00 2021-12-17 06:11:00 [address] Yariel_A [facility] 0401 [facility] 2021-12-06 00:00:00 2021-12-06 00:00:00 Ariel Saldivar PA-C: [address], [place] [address] , Ph. Yariel_Alfredo [facility] 0321 [facility] 2021-12-02 10:10:00 2021-12-02 10:10:00 Outpatient Deejay Barry [facility] [id number] [facility] 2021-11-18 10:39:00 2021-11-18 10:39:00 Outpatient ARIEL MARADIAGA [facility] [id number] [facility] 2021-11-18 00:00:00 2021-11-18 00:00:00 Ariel Saldivar PA-C: [address] [facility] [address], [place] [address] , Ph. Yariel_Alfredo [facility] 0303 [facility] 2021-11-17 10:55:00 2021-11-17 10:55:00 Outpatient Deejay Barry [facility] [id number] [facility] 2021-10-29 04:41:00 2021-10-29 04:41:00 Outpatient Yariel_A [facility] [id number] 021 [facility] 2021-10-27 02:05:00 2021-10-27 02:05:00 Outpatient Koudela_A [facility] [id number] [facility] 2021-10-19 09:53:00 2021-10-19 09:53:00 Outpatient Deejay Barry [facility] [id number] [facility] 2021-10-18 11:04:00 2021-10-18 11:04:00 Outpatient Koudela_A [facility] 2021-10-05 00:00:00 2021-10-05 00:00:00 Ariel Saldivar PA-C: [address] [facility] [address], [place] [address] , Ph. Koudela_A [facility] 0118 [facility] 2021-09-26 12:55:00 2021-10-01 14:03:00 Inpatient ER Jacy Jimenez [facility] [id number] [facility] 2021-09-25 11:01:00 2021-09-25 14:06:00 Emergency ER ANITA MONTANEZ [facility] [id number] [facility] 2021-08-25 05:53:00 2021-08-25 05:53:00 Outpatient Koudela_A [facility] [id number] [facility] 2021-08-24 00:00:00 2021-08-24 00:00:00 Miah Bruno MD: [address] [facility] [address] [address] , Ph. [phone] Koudela_A [facility] surgery [facility]6 [facility] 2021-08-09 04:17:00 2021-08-09 04:17:00 Outpatient Koudela_A [facility] [id number] 112 [facility] 2021-08-06 10:50:00 2021-08-06 10:50:00 Outpatient Koudela_A [facility] [id number] 111 [facility] 2021-08-05 00:00:00 2021-08-05 00:00:00 Ariel Saldivar PA-C: [address] [place] [address] [address] [address] , Ph. Koudela_A [facility] 1117 [facility] 2021-08-04 05:51:00 2021-08-04 05:51:00 Outpatient Koudela_A [facility] [id number] 1117 [facility] 2021-08-03 01:34:00 2021-08-03 01:34:00 Outpatient Zuniga_F [facility] [id number] 1116 [facility] 2021-05-29 07:18:00 2021-05-29 12:30:00 Emergency ER JORGE A FRANCO [facility] [id number] [facility] 2021 21:16:00 2021 22:23:00 Emergency ER TROY ROJAS [facility] [id number] [facility] 2021-04-05 02:45:00 2021-04-05 02:45:00 Outpatient Zuniga_F [facility] [id number] 07 [facility] Results Test Description Test Time Test Comments Results Result Co mments Source [facility] W Auto Differential panel - [id number] 09:29:00 * Test Item Value Reference Range Interpretation Comme nts white blood count (test code = white blood count) 6.2 K/uL 4.0-12.3 red blood count (test code = red blood count) 4.90 M/uL 3.80-5.80 hemoglobin (test code = hemoglobin) 14.1 g/dL 11.7-17.2 hematocrit (test code = hematocrit) 43.3 % 35.0-51.0 MCV [Entitic volume] (test c ode = 07832-2) 88.4 fL 83.0-100.0 mean corpuscular hemoglobin (test [...] neutrophils/100 leukocytes in Blood (test code = 60789-0) 52.9 % 44.7-82.4 Immature granulocytes [#/vol ume] in Blood (test code = 17382-5) 0.01 K/uL 0.00-0.03 lymphocyte% (test code = lymphocyte%) 32.5 % 10.0-50.0 mono % (test code = mono %) 11.7 % 3.9-13.4 eos % (test code = eos %) 2.1 % 0.0-6.4 basophil % (test code = baso lai %) 0.6 % 0.2-1.2 Band form neutrophils [#/vol ume] in Blood (test code = 30126-4) 3.30 K/uL 1.78-5.38 Lymphocytes [#/volume] in Sp ecimen by Automated count (test code = 45324-1) 2.03 K/uL 1.32-3.57 mono # (test code = mono #) 0.73 K/uL 0.30-0.82 eos # (test code = eos #) 0.13 K/uL 0.04-0.54 basophil # (test code = baso lai #) 0.04 K/uL 0.01-0.08 NRBC% (test code = NRBC%) 0 /100 WBC 0-0.2 NRBC# (test code = NRBC#) 0 K/uL [facility] Group[facility]ial panel, method unspecified - [id number] 09:29:00NeutrophilsBandLymphocyteAtypical LymphMonocyteEosinophilBasophilAbs Neutrophil Count (Man)Abs Lymph Count (Man)Abs Monocyte Count (Man)Abs Eosinophil Count (Man)Abs Basophil Count (Man)Platelet EstimatePlatelet MorphologyHypochromasiaPoikilocytosisAnisocytosisStomatocytGreene County HospitalComprehensive metabolic 2000 panel - Serum or [id number] 09:29:00* Test Item Value Reference Range Interpretation [...] (test code = 6768-6) 100 U/L 40-130 [facility] GroupAmylase [Enzymatic activity/volume] in Serum or Plasma 2022-04-27 00:00:00* Test Item Value Reference Range Interpretation Comme nts Amylase [Enzymatic activity/ volume] in Serum or Plasma (test code = 1798-8) 62 U/L 28-100 [facility] GroupLipase [Enzymatic activity/volume] in Serum or Plasma 2022-04-27 00:00:00* Test Item Value Reference Range Interpretation Comme nts lipase (test code = lipase) 41 U/L 13-60 [facility] HospitalUrinalysis complete panel - [id number] 12:30:00* Test Item Value Reference Range Interpretation Comme nts Color of Urine by Auto (test code = 98418-4) light yellow Appearance of Urine (test co de = 5767-9) clear clear Glucose [Presence] in Urine by Automated test strip (test code = 06733-6) negative negative Bilirubin.total [Mass/volume ] in Urine (test code = 1978-6) negative negative Ketones [Mass/volume] in Uri ne by Automated test strip (test code = 48121-6) negative negative Specific gravity of Urine by Automated test strip (test code = 93494-2) 1.029 1.003-1.030 blood urine (test code = blo od urine) negative negative pH of Urine (test code = 2756-5) 7.000 5-9 protein urine (UA) (test cod e = protein urine (UA)) negative negative Urobilinogen [Presence] in Urine (test code = 62040-9) normal 0.2-1.0 Nitrite [Presence] in Urine by Test strip (test code = 5802-4) negative negative Leukocyte esterase [Presence ] in Urine by Automated test strip (test code = 15617-6) negative negative Erythrocytes [#/volume] in Urine by Automated count (test code = 798-9) <1 0-5 Leukocytes [#/area] in Urine sediment by Automated count (test code = 71224-8) <1 0-5 Epithelial cells [Presence] in Urine sediment by Light microscopy (test code = 55560-1) <1 0-5 Bacteria identified in Urine by Culture (test code = 630-4) none detected none detect Casts [#/area] in Urine sediment by Automated count (test code = 38683-0) none detected none detect urine culture added? (test c ode = urine culture added?) no [facility] GroupUrinalysis complete panel - [id number] 12:30:00* Test Item Value Reference Range Interpretation Comme nts Color of Urine by Auto (test code = 48492-4) light yellow Appearance of Urine (test co de = 5767-9) clear clear Glucose [Presence] in Urine by Automated test strip (test code = 50830-2) negative negative Bilirubin.total [Mass/volume ] in Urine (test code = 1978-6) negative negative Ketones [Mass/volume] in Uri ne by Automated test strip (test code = 34934-5) negative negative Specific gravity of Urine by Automated test strip (test code = 64211-2) 1.029 1.003-1.030 blood urine (test code = blo od urine) negative negative pH of Urine (test code = 2756-5) 7.000 5-9 protein urine (UA) (test cod e = protein urine (UA)) negative negative Urobilinogen [Presence] in Urine (test code = 85620-3) normal 0.2-1.0 Nitrite [Presence] in Urine by Test strip (test code = 5802-4) negative negative Leukocyte esterase [Presence ] in Urine by Automated test strip (test code = 49048-0) negative negative Erythrocytes [#/volume] in Urine by Automated count (test code = 798-9) <1 0-5 Leukocytes [#/area] in Urine sediment by Automated count (test code = 11979-5) <1 0-5 Epithelial cells [Presence] in Urine sediment by Light microscopy (test code = 20303-9) <1 0-5 Bacteria identified in Urine by Culture (test code = 630-4) none detected none detect Casts [#/area] in Urine sediment by Automated count (test code = 21393-8) none detected none detect urine culture added? (test c ode = urine culture added?) no [facility] GroupBlood type and Indirect antibody screen panel - Blood 2022-04-18 11:39:00* Test Item Value Reference Range Interpretation Comme nts Rh [Type] in Blood (test cod e = 37033-2) 4+ ABO and Rh group panel - Blo od (test code = 28280-2) A positive [facility] GroupBlood type and Indirect antibody screen panel - Blood 2022-04-18 11:39:00* Test Item Value Reference Range Interpretation Comme nts Rh [Type] in Blood (test cod e = 64327-7) 4+ ABO and Rh group panel - Blo od (test code = 63794-0) A positive [facility] GroupCBC panel - Blood by Automated [id number] 11:34:00* Test Item Value Reference Range Interpretation Comme nts white blood count (test code = white blood count) 6.5 K/uL 4.0-12.3 red blood count (test code = red blood count) 4.52 M/uL 3.80-5.80 hemoglobin (test code = hemoglobin) 13.5 g/dL 11.7-17.2 hematocrit (test code = hematocrit) 39.6 % 35.0-51.0 MCV [Entitic volume] (test c ode = 79550-8) 87.6 fL 83.0-100.0 mean corpuscular hemoglobin (test [...] mean platelet volume) 8.0 fL 9.4-12.6 L [facility] GroupPT/[id number] 11:34:00* Test Item Value Reference Range Interpretation Comme nts prothrombin time (test code = prothrombin time) 9.9 seconds 10.3-12.3 L INR in Blood by Coagulation assay (test code = 47473-3) <0.94 [facility] [id number] 11:34:00* Test Item Value Reference Range Interpretation Comme nts INR in Blood by Coagulation assay (test code = 67277-8) 24.5 seconds 22.5-37.0 [facility] HospitalComprehensive metabolic 2000 panel - Serum or [...] (test code = 6768-6) 91 U/L 40-130 [facility] HospitalCreatine kinase [Enzymatic activity/volume] in Serum or [id number] 11:34:00* Test Item Value Reference Range Interpretation Comme nts creatine kinase (test code = creatine kinase) 192 U/L 20-200 [facility] by Automated [id number] 11:34:00* Test Item Value Reference Range Interpretation Comme nts white blood count (test code = white blood count) 6.5 K/uL 4.0-12.3 red blood count (test code = red blood count) 4.52 M/uL 3.80-5.80 hemoglobin (test code = hemoglobin) 13.5 g/dL 11.7-17.2 hematocrit (test code = hematocrit) 39.6 % 35.0-51.0 MCV [Entitic volume] (test c ode = 27545-9) 87.6 fL 83.0-100.0 mean corpuscular hemoglobin (test [...] mean platelet volume) 8.0 fL 9.4-12.6 L [facility] HospitalPT/[id number] 11:34:00* Test Item Value Reference Range Interpretation Comme nts prothrombin time (test code = prothrombin time) 9.9 seconds 10.3-12.3 L INR in Blood by Coagulation assay (test code = 29600-6) <0.94 [facility]in [id number] 11:34:00* Test Item Value Reference Range Interpretation Comme nts INR in Blood by Coagulation assay (test code = 63467-7) 24.5 seconds 22.5-37.0 [facility] HospitalCom[facility] 2000 panel - Serum or [...] (test code = 6768-6) 91 U/L 40-130 [facility] HospitalCreatine kinase [Enzymatic activity/volume] in Serum or [id number] 11:34:00* Test Item Value Reference Range Interpretation Comme nts creatine kinase (test code = creatine kinase) 192 U/L 20-200 [facility] W Auto Differential panel - [id number] 09:45:00 * Test Item Value Reference Range Interpretation Comme nts white blood count (test code = white blood count) 5.6 K/uL 4.0-12.3 red blood count (test code = red blood count) 4.27 M/uL 3.80-5.80 hemoglobin (test code = hemoglobin) 12.6 g/dL 11.7-17.2 hematocrit (test code = hematocrit) 38.2 % 35.0-51.0 MCV [Entitic volume] (test c ode = 02381-9) 89.5 fL 83.0-100.0 mean corpuscular hemoglobin (test [...] neutrophils/100 leukocytes in Blood (test code = 38268-0) 46.8 % 44.7-82.4 Immature granulocytes [#/vol ume] in Blood (test code = 61289-6) 0.01 K/uL 0.00-0.03 lymphocyte% (test code = lymphocyte%) 36.8 % 10.0-50.0 mono % (test code = mono %) 11.7 % 3.9-13.4 eos % (test code = eos %) 3.6 % 0.0-6.4 Basophils/100 leukocytes in Specimen (test code = 34111-1) 0.9 % 0.2-1.2 Band form neutrophils [#/vol ume] in Blood (test code = 96051-9) 2.64 K/uL 1.78-5.38 Lymphocytes [#/volume] in Sp ecimen by Automated count (test code = 62190-0) 2.07 K/uL 1.32-3.57 mono # (test code = mono #) 0.66 K/uL 0.30-0.82 eos # (test code = eos #) 0.20 K/uL 0.04-0.54 basophil # (test code = baso lai #) 0.05 K/uL 0.01-0.08 NRBC% (test code = NRBC%) 0 /100 WBC 0-0.2 NRBC# (test code = NRBC#) 0 K/uL [facility]Com[facility] 2000 panel - Serum or [...] (test code = 6768-6) 91 U/L 40-130 [facility] HospitalLipid 1996 panel - Serum or [id number] 09:45:00* Test Item Value Reference Range Interpretation [...] (test code = cholesterol risk ratio) 3.138 [facility] HospitalUrinalysis complete W Reflex Culture panel - Urine 2022-01-31 09:45:00* Test Item Value Reference Range Interpretation Comme nts Color of Urine by Auto (test code = 50897-6) yellow Appearance of Urine (test co de = 5767-9) clear clear Glucose [Presence] in Urine by Automated test strip (test code = 86871-6) negative negative Bilirubin.total [Mass/volume ] in Urine (test code = 1978-6) negative negative Ketones [Mass/volume] in Uri ne by Automated test strip (test code = 56288-4) negative negative Specific gravity of Urine by Automated test strip (test code = 38351-8) 1.031 1.003-1.030 H blood urine (test code = blo od urine) negative negative pH of Urine (test code = 2756-5) 6.000 5-9 protein urine (UA) (test cod e = protein urine (UA)) =1+ (30 negative H Urobilinogen [Presence] in Urine (test code = 99443-5) =2.0 0.2-1.0 H Nitrite [Presence] in Urine by Test strip (test code = 5802-4) negative negative Leukocyte esterase [Presence ] in Urine by Automated test strip (test code = 56984-4) negative negative Erythrocytes [#/volume] in Urine by Automated count (test code = 798-9) =1-5 0-5 Leukocytes [#/area] in Urine sediment by Automated count (test code = 14906-5) <1 0-5 Epithelial cells [Presence] in Urine sediment by Light microscopy (test code = 87423-4) <1 0-5 Bacteria identified in Urine by Culture (test code = 630-4) none detected none detect Casts [#/area] in Urine sediment by Automated count (test code = 06750-8) =2-5 none detect urine culture added? (test c ode = urine culture added?) no [facility] HospitalDifferential panel, method unspecified - [id number] 00:00:00NeutrophilsBandLymphocyteAtypical LymphMonocyteEosinophilBasophilMetamyelocyteAbs Neutrophil Count (Man)Abs Lymph Count (Man)Abs Monocyte Count (Man)Abs Eosinophil Count (Man)Abs Basophil Count (Man)Platelet EstimatePlatelet MorphologyMacrocytosisSh[facility]key [facility] Hemoglobin A1c [Mass/volume] in [id number] 00:00:00* Test Item Value Reference Range Interpretation Comme [facility] Hemoglobin A1c [Mass/volume] in Blood (test code = 87382-4) 5.7 % 4.0-6.0 [facility] HospitalCom[facility] 2000 panel - Serum or [...] (test code = 6768-6) 91 U/L 40-130 [facility] HospitalCobalamin (Vitamin B12) [Mass/volume] in Serum or Plasma 2021-11-18 00:00:00* Test Item Value Reference Range Interpretation Comme [facility] vitamin B12, serum (test cod e = vitamin B12, serum) 330 [facility] W Auto Differential panel - [id number] 03:50:00 * Test Item Value Reference Range Interpretation Comme [facility] white blood count (test code = white blood count) 10.6 K/uL 4.0-12.3 red blood count (test code = red blood count) 4.27 M/uL 3.80-5.80 hemoglobin (test code = hemoglobin) 12.1 g/dL 11.7-17.2 hematocrit (test code = hematocrit) 36.6 % 35.0-51.0 MCV [Entitic volume] (test c ode = 74792-3) 85.7 fL 83.0-100.0 mean corpuscular hemoglobin (test [...] neutrophils/100 leukocytes in Blood (test code = 99525-7) 72.9 % 44.7-82.4 Immature granulocytes [#/vol ume] in Blood (test code = 66309-3) 0.10 K/uL 0.00-0.03 H lymphocyte% (test code = lymphocyte%) 19.0 % 10.0-50.0 mono % (test code = mono %) 7.1 % 3.9-13.4 eos % (test code = eos %) 0 % 0.0-6.4 Basophils/100 leukocytes in Unspecified specimen (test code = 70089-8) 0.1 % 0.2-1.2 L Band form neutrophils [#/vol ume] in Blood (test code = 22383-4) 7.75 K/uL 1.78-5.38 H Lymphocytes [#/volume] in Unspecified specimen by Automated count (test code = 60146-8) 2.02 K/uL 1.32-3.57 mono # (test code = mono #) 0.75 K/uL 0.30-0.82 eos # (test code = eos #) 0.00 K/uL 0.04-0.54 L basophil # (test code = baso lai #) 0.01 K/uL 0.01-0.08 NRBC% (test code = NRBC%) 0 /100 WBC 0-0.2 NRBC# (test code = NRBC#) 0 K/uL [facility] metabolic 2000 panel - Serum or [id number] 03:50:00* Test Item Value Reference Range Interpretation [...] = calcium level) 8.0 mg/dL 8.6-10.0 L [facility] HospitalDifferential panel, method unspecified - [id number] 00:00:00NeutrophilsBandLymphocyteAtypical LymphMonocyteEosinophilBasophilMetamyelocyteMyelocytePromyelocyteBlastsNucleated Red Blood CellPlasma CellDifferential CommentAbs Neutrophil Count (Man)Abs Lymph Count (Man)Abs Monocyte Count (Man)Abs Eosinophil Count (Man)Abs Basophil Count (Man)Platelet EstimatePlatelet MorphologyHypochromasiaPoikilocytosisAnisocytosisMicrocytosisMacrocytosisSchisto cytesTarget CellsStomatocyteToxic GranulationBurr CellsHypersegmented PolysSmudge CellsSh[facility]key Issaquena Community HospitalCB W Auto Differential panel - Blood 2021-09-30 03:28:00* Test Item Value Reference Range Interpretation Comme nts white blood count (test code = white blood count) 10.1 K/uL 4.0-12.3 red blood count (test code = red blood count) 4.17 M/uL 3.80-5.80 hemoglobin (test code = hemoglobin) 12.0 g/dL 11.7-17.2 hematocrit (test code = hematocrit) 37.2 % 35.0-51.0 MCV [Entitic volume] (test c ode = 23874-0) 89.2 fL 83.0-100.0 mean corpuscular hemoglobin (test [...] neutrophils/100 leukocytes in Blood (test code = 41377-1) 85.9 % 44.7-82.4 H Immature granulocytes [#/vol ume] in Blood (test code = 52111-4) 0.11 K/uL 0.00-0.03 H lymphocyte% (test code = lymphocyte%) 10.0 % 10.0-50.0 mono % (test code = mono %) 3.0 % 3.9-13.4 L eos % (test code = eos %) 0 % 0.0-6.4 Basophils/100 leukocytes in Unspecified specimen (test code = 76539-9) 0.0 % 0.2-1.2 L Band form neutrophils [#/vol ume] in Blood (test code = 45839-9) 8.69 K/uL 1.78-5.38 H Lymphocytes [#/volume] in Unspecified specimen by Automated count (test code = 76995-5) 1.01 K/uL 1.32-3.57 L mono # (test code = mono #) 0.30 K/uL 0.30-0.82 eos # (test code = eos #) 0.00 K/uL 0.04-0.54 L basophil # (test code = baso lai #) 0.00 K/uL 0.01-0.08 L NRBC% (test code = NRBC%) 0 /100 WBC 0-0.2 NRBC# (test code = NRBC#) 0 K/uL [facility]Basic [facility] 2000 panel - Serum or [id number] 03:28:00* Test Item Value Reference Range Interpretation [...] = calcium level) 8.3 mg/dL 8.6-10.0 L [facility] HospitalDifferential panel, method unspecified - [id number] 00:00:00NeutrophilsBandLymphocyteAtypical LymphMonocyteEosinophilBasophilMetamyelocyteMyelocytePromyelocyteBlastsNucleated Red Blood CellPlasma CellDifferential CommentAbs Neutrophil Count (Man)Abs Lymph Count (Man)Abs Monocyte Count (Man)Abs Eosinophil Count (Man)Abs Basophil Count (Man)Platelet EstimatePlatelet MorphologyHypochromasiaPoikilocytosisAnisocytosisMicrocytosisMacrocytosisSchisto cytesTarget CellsStomatocyteToxic GranulationBurr CellsHypersegmented PolysSmudge CellsCotaGeorge Regional HospitalClostridioides difficile toxin A+B [Presence] in [id number] 08:35:00* Test Item Value Reference Range Interpretation Comme nts results (test code = results) Clostridioides difficile [id number] strain DNA [Presence] in Stool by PRANAV with probe detection (test code = 79812-6) 027 presumptive negative [facility] HospitalLeukocytes [Presence] in Stool by Light microscopy 2021-09-29 08:35:00ResultsSharkey Issaquena Community HospitalCBC W Auto Differential panel - [id number] 02:50:00* Test Item Value Reference Range Interpretation Comme nts white blood count (test code = white blood count) 12.0 K/uL 4.0-12.3 red blood count (test code = red blood count) 4.17 M/uL 3.80-5.80 hemoglobin (test code = hemoglobin) 11.9 g/dL 11.7-17.2 hematocrit (test code = hematocrit) 36.2 % 35.0-51.0 MCV [Entitic volume] (test c ode = 76036-2) 86.8 fL 83.0-100.0 mean corpuscular hemoglobin (test [...] neutrophils/100 leukocytes in Blood (test code = 42204-0) 89.1 % 44.7-82.4 H Immature granulocytes [#/vol ume] in Blood (test code = 42662-2) 0.09 K/uL 0.00-0.03 H lymphocyte% (test code = lymphocyte%) 7.4 % 10.0-50.0 L mono % (test code = mono %) 2.8 % 3.9-13.4 L eos % (test code = eos %) 0 % 0.0-6.4 Basophils/100 leukocytes in Unspecified specimen (test code = 29031-9) 0.0 % 0.2-1.2 L Band form neutrophils [#/vol ume] in Blood (test code = 95913-9) 10.72 K/uL 1.78-5.38 H Lymphocytes [#/volume] in Unspecified specimen by Automated count (test code = 99472-0) 0.89 K/uL 1.32-3.57 L mono # (test code = mono #) 0.34 K/uL 0.30-0.82 eos # (test code = eos #) 0.00 K/uL 0.04-0.54 L basophil # (test code = baso lai #) 0.00 K/uL 0.01-0.08 L NRBC% (test code = NRBC%) 0 /100 WBC 0-0.2 NRBC# (test code = NRBC#) 0 K/uL [facility] metabolic 2000 panel - Serum or [id number] 02:50:00* Test Item Value Reference Range Interpretation [...] code = calcium level) 8.6 mg/dL 8.6-10.0 [facility] HospitalDifferential panel, method unspecified - [id number] 00:00:00NeutrophilsBandLymphocyteAtypical LymphMonocyteEosinophilBasophilMetamyelocyteMyelocytePromyelocyteBlastsNucleated Red Blood CellDifferential CommentAbs Neutrophil Count (Man)Abs Lymph Count (Man)AbsMonocyte Count (Man)Abs Eosinophil Count (Man)Abs Basophil Count (Man)Platelet EstimatePlatelet Morp hologyHypochromasiaPoikilocytosisAnisocytosisMicrocytosisMacrocytosisTarget CellsBurr CellsHypersegmented PolysMiss[facility] metabolic 2000 panel - Serum or [id number] 03:05:00* Test Item Value Reference Range Interpretation [...] code = calcium level) 9.0 mg/dL 8.6-10.0 [facility] W Auto Differential panel - [id number] 03:05:00 * Test Item Value Reference Range Interpretation Comme nts white blood count (test code = white blood count) 14.1 K/uL 4.0-12.3 red blood count (test code = red blood count) 4.35 M/uL 3.80-5.80 hemoglobin (test code = hemoglobin) 12.5 g/dL 11.7-17.2 hematocrit (test code = hematocrit) 37.8 % 35.0-51.0 MCV [Entitic volume] (test c ode = 25864-0) 86.9 fL 83.0-100.0 mean corpuscular hemoglobin (test [...] neutrophils/100 leukocytes in Blood (test code = 44192-7) 88.3 % 44.7-82.4 H Immature granulocytes [#/vol ume] in Blood (test code = 90710-9) 0.09 K/uL 0.00-0.03 H lymphocyte% (test code = lymphocyte%) 8.2 % 10.0-50.0 L mono % (test code = mono %) 2.8 % 3.9-13.4 L eos % (test code = eos %) 0 % 0.0-6.4 Basophils/100 leukocytes in Unspecified specimen (test code = 87048-3) 0.1 % 0.2-1.2 L Band form neutrophils [#/vol ume] in Blood (test code = 17550-8) 12.42 K/uL 1.78-5.38 H Lymphocytes [#/volume] in Unspecified specimen by Automated count (test code = 23781-9) 1.15 K/uL 1.32-3.57 L mono # (test code = mono #) 0.40 K/uL 0.30-0.82 eos # (test code = eos #) 0.00 K/uL 0.04-0.54 L basophil # (test code = baso lai #) 0.01 K/uL 0.01-0.08 NRBC% (test code = NRBC%) 0 /100 WBC 0-0.2 NRBC# (test code = NRBC#) 0 K/uL [facility], method unspecified - [id number] 00:00:00NeutrophilsBandLymphocyteAtypical LymphMonocyteEosinophilBasophilMetamyelocyteMyelocytePromyelocyteBlastsNucleated Red Blood CellDifferential CommentAbs Neutrophil Count (Man)Abs Lymph Count (Man)AbsMonocyte Count (Man)Abs Eosinophil Count (Man)Abs Basophil Count (Man)Platelet EstimatePlatelet Morp hologyHypochromasiaPoikilocytosisAnisocytosisMicrocytosisMacrocytosisTarget CellsBurr CellsMemorial Hospital at [facility] W Auto Differential panel - Blood 2021-09-25 10:10:00* Test Item Value Reference Range Interpretation Comme nts white blood count (test code = white blood count) 6.9 K/uL 4.0-12.3 red blood count (test code = red blood count) 4.84 M/uL 3.80-5.80 hemoglobin (test code = hemoglobin) 13.8 g/dL 11.7-17.2 hematocrit (test code = hematocrit) 42.0 % 35.0-51.0 MCV [Entitic volume] (test c ode = 00975-8) 86.8 fL 83-100 mean corpuscular hemoglobin (test [...] neutrophils/100 leukocytes in Blood (test code = 87521-0) 36.0 % 44.7-82.4 L Immature granulocytes [#/vol ume] in Blood (test code = 99826-3) 0.0 K/uL 0.0-0.03 lymphocyte% (test code = lymphocyte%) 52.2 % 10.0-50.0 H mono % (test code = mono %) 8.4 % 3.9-13.4 eos % (test code = eos %) 2.7 % 0.0-6.4 Basophils/100 leukocytes in Unspecified specimen (test code = 65189-3) 0.6 % 0.2-1.2 Band form neutrophils [#/vol ume] in Blood (test code = 49611-9) 2.49 K/uL 1.78-5.38 Lymphocytes [#/volume] in Unspecified specimen by Automated count (test code = 77812-2) 3.6 K/uL 1.32-3.57 H mono # (test code = mono #) 0.58 K/uL 0.30-0.82 eos # (test code = eos #) 0.19 K/uL 0.04-0.54 basophil # (test code = baso lai #) 0.04 K/uL 0.01-0.08 NRBC% (test code = NRBC%) 0 /100 WBC 0-0.2 NRBC# (test code = NRBC#) 0 K/uL [facility] HospitalPT/[id number] 10:10:00* Test Item Value Reference Range Interpretation Comme nts prothrombin time (test code = prothrombin time) 9.9 seconds 10.3-12.3 L INR in Blood by Coagulation assay (test code = 38779-0) <0.94 [facility] HospitalComprehensive metabolic 2000 panel - Serum or [...] (test code = 6768-6) 124 U/L 40-130 [facility] HospitalCreatine kinase [Enzymatic activity/volume] in Serum or [id number] 10:10:00* Test Item Value Reference Range Interpretation Comme nts creatine kinase (test code = creatine kinase) 243 U/L 20-200 H [facility]Different[facility] panel, method unspecified - [id number] 00:00:00NeutrophilsBandLymphocyteAtypical LymphMonocyteEosinophilBasophilMetamyelocyteMyelocyteAbs Neutrophil Count (Man)Abs Lymph Count (Man)Abs Monocyte Count (Man)Abs Eosinophil Count (Man)Abs Basophil Count (Man)Platelet EstimateHypochromasiaMataGeorge Regional Hospitalpartial thromboplastin [id number] 00:00:00* Test Item Value Reference Range Interpretation Comme nts INR in Blood by Coagulation assay (test code = 71217-0) 23.6 seconds 22.5-37.0 [facility] HospitalCreatine kinase.MB [Mass/volume] in Serum or Plasma 2021-09-25 00:00:00* Test Item Value Reference Range Interpretation Comme nts Creatine kinase.MB [Mass/vol ume] in Serum or Plasma by Immunoassay (test code = 06055-2) 1.7 NG/mL 0.0-3.6 [facility] Hospitalltrop [id number] 00:00:00* Test Item Value Reference Range Interpretation Comme nts Troponin T.cardiac [Mass/vol ume] in Blood (test code = 59475-0) <0.01 0-0.011 [facility]
[2024-03-10] MEDS ORDERED: CYCLOBENZAPRINE 10 MG TAB ONE (09:04)
[2024-03-10] MEDS ORDERED: HYDROCODONE/APAP 10/325 TAB ONE (09:04)
[2024-03-10] MEDS ORDERED: NA CHLORIDE 0.9% 1,000 ML ONE (09:04)
[2024-03-10 09:16] LABS: Absolute Basophils 0.1 K/uL (0-0.5); Absolute Lymphocytes (CBC) 1.4 K/uL (0.7-4.9); Absolute Monocytes 0.2 K/uL (0.1-1.3); Absolute Neutrophil 4.6 K/uL (1.8-8.0); Basophils % 0.9 % (0-1.3); Eosinophils % 0.2 % (0-4.4); Hematocrit 33.1 % (39.6-49.0); Hemoglobin 10.4 g/dL (13.6-17.9); Lymphocytes % 22.2 % (15.3-44.8); MCH 22.7 pg (27.0-35.0); MCHC 31.3 g/dL (32.0-36.0); MCV 72.6 fL (80-100); MPV 6.5 fL (7.6-11.3); Monocytes % 2.5 % (3.3-12.3); Neutrophils % 74.2 % (41.7-73.7); Platelets 435 thou/uL (152-406); RBC Red Blood Cell Count 4.56 M/uL (4.33-5.43); Red Cell Distribution Width 17.1 % (12.1-15.2)
[2024-03-10 09:27] LABS: ALT/SGPT 25 U/L (16-61); Albumin 3.8 g/dL (3.4-5.0); Albumin/Globulin Ratio 0.9 (1.1-1.8); Alkaline Phosphatase 99 U/L (45-117); Anion Gap 9.7 mEq/L (5.0-15.0); BUN Blood Urea Nitrogen 12 mg/dL (7-18); Bicarbonate 24 mEq/L (21-32); Bilirubin Total 0.3 mg/dL (0.2-1.0); Creatine Phosphokinase 119 U/L (39-308); Globulin 4.1 g/dL (2.3-3.5); Glomerular Filtration Rate 62 ml/min (=/>90); Glucose Level 139 mg/dL (74-106); Potassium 3.7 mEq/L (3.5-5.1); Protein, Total 7.9 g/dL (6.4-8.2); Sodium Level 138 mEq/L (136-145)
[2024-03-10 09:35] LABS: AST/SGOT < 10 U/L (15-37)
--- NOTE | 2024-03-10 09:55 | ER ---
Nurse's Notes [facility] Name: Piter Iglesias Age: 58 yrs Sex: Male : 1965 Arrival Date: 03/10/2024 Time: 08:17 Bed 14 Private MD: Diagnosis: Rheumatoid arthritis, unspecified Presentation: 03/10 08:29 Chief complaint: Seen in ED for pain all over last night for pain all over, not feeling hb better. Coronavirus screen: At this time, the client does not indicate any symptoms associated with coronavirus-19. Ebola Screen: No symptoms or risks identified at this time. Initial Sepsis Screen: Does the patient meet any 2 criteria? No. Patient's initial sepsis screen is negative. Does the patient have a suspected source of infection? No. Patient's initial sepsis screen is negative. Risk Assessment: Do you want to hurt yourself or someone else? Patient reports no desire to harm self or others. Onset of symptoms was March 10, 2024. 08:29 Method Of Arrival: Ambulatory hb 08:29 Acuity: AISHA 3 hb Triage Assessment: 08:31 General: Appears in no apparent distress. Behavior is calm, cooperative. Pain: Pain hb currently is 10 out of 10 on a pain scale. Neuro: Level of Consciousness is awake, alert, obeys commands, Oriented to person, place, time, situation. Cardiovascular: Patient's skin is warm and dry. Respiratory: Respiratory effort is even, unlabored, Respiratory pattern is regular, symmetrical. Musculoskeletal: Reports pain all over. Historical: - Allergies: 08:31 Nuts; hb - PMHx: 08:31 elevated creatinine levels; Anxiety; Asthma; Crohn's Disease; depressive disorder; hb diabetes mellitus; elevated liver enzymes; Hyperlipidemia; Hypertension; spinal stenosis; ulcerative colitis; - PSHx: 08:31 Cholecystectomy; intestinal Surgery; hb - Immunization history:: Adult Immunizations up to date. - Infectious Disease History:: Denies. - Social history:: Smoking status: Patient/guardian denies using tobacco. - Family history:: not pertinent. Screenin:11 [facility] ED Fall Risk Assessment (Adult) History of falling in the last 3 months, db including since admission No falls in past 3 months (0 pts) Confusion or Disorientation No (0 pts) Intoxicated or Sedated No (0 pts) Impaired Gait No (0 pts) Mobility Assist Device Used No (0 pt) Altered Elimination No (0 pt) Score/Fall Risk Level 0 - 2 = Low Risk Oriented to surroundings, Maintained a safe environment. Abuse screen: Denies threats or abuse. Denies injuries from another. Nutritional screening: No deficits noted. Tuberculosis screening: No symptoms or risk factors identified. Assessment: 09:09 Reassessment: Patient appears in no apparent distress at this time. Patient and/or db family updated on plan of care and expected duration. Pain level reassessed. Patient is alert, oriented x 3, equal unlabored respirations, skin warm/dry/pink. REPORTS PAIN ALL OVER. General: Appears in no apparent distress. uncomfortable, Behavior is calm, cooperative. Pain: Complains of pain in back and abdomen. Neuro: Level of Consciousness is awake, alert, obeys commands, Oriented to person, place, time, situation, Speech is normal. Cardiovascular: No deficits noted. Respiratory: No deficits noted. Airway is patent Respiratory effort is even, unlabored, Respiratory pattern is regular, symmetrical. GI: Abdomen is flat, non-distended. GI: No deficits noted. No signs and/or symptoms were reported involving the gastrointestinal system. : No deficits noted. No signs and/or symptoms were reported regarding the genitourinary system. EENT: No deficits noted. No signs and/or symptoms were reported regarding the EENT system. 10:10 Reassessment: Patient appears in no apparent distress at this time. Patient and/or db family updated on plan of care and expected duration. Pain level reassessed. Patient is alert, oriented x 3, equal unlabored respirations, skin warm/dry/pink. Patient states feeling better. Patient states symptoms have improved. General: Appears in no apparent distress. comfortable, Behavior is calm, cooperative. Vital Signs: 08:29 BP 148 / 108; Pulse 89; Resp 20; Temp 97.9(TE); Pulse Ox 100% on R/A; Weight 86.18 kg; hb Height 5 ft. 3 in. ; Pain 10/10; 09:00 BP 119 / 93; Pulse 77; Resp 18; Pulse Ox 100% on R/A; db 10:00 BP 130 / 90; Pulse 82; Resp 18; Pulse Ox 97% on R/A; db 08:29 Body Mass Index 33.66 (86.18 kg, 160.02 cm) hb 08:29 Pain Scale: Adult hb ED Course: 08:20 Patient arrived in ED. im 08:20 Thomas Smith MD is Attending Physician. rt 08:31 Triage completed. hb 08:31 Arm band placed on. hb 08:50 Kamini Orellana RN is Primary Nurse. db 09:00 Initial lab(s) drawn, by me, sent to lab. Inserted saline lock: 20 gauge in left db antecubital area, using aseptic technique. Blood collected. 09:10 No provider procedures requiring assistance completed. db 09:11 Patient has correct armband on for positive identification. Bed in low position. Call db light in reach. Side rails up X 1. Provided Education on: LABS. Pulse ox on. NIBP on. Warm blanket given. 10:10 IV discontinued, intact, bleeding controlled, No redness/swelling at site. db Administered Medications: 09:06 Drug: NS 0.9% IV 1000 ml IV at 1000 ml once Route: IV; Rate: 1000 ml; Site: left db antecubital; 10:11 Follow up: Response: No adverse reaction; IV Status: Completed infusion; IV Intake: db 1000ml 09:06 Drug: [place] PO 10 mg-325 mg 1 tabs PO once Route: PO; db 10:11 Follow up: Response: No adverse reaction db 09:06 Drug: Cyclobenzaprine PO 10 mg PO once Route: PO; db 10:11 Follow up: Response: No adverse reaction db Medication: 10:10 VIS not applicable for this client. db Intake: 10:11 IV: 1000ml; Total: 1000ml. db Outcome: 09:55 Discharge ordered by . rt 10:10 Discharged to home ambulatory, db 10:10 Condition: stable 10:10 Discharge instructions given to patient, Instructed on discharge instructions, follow up and referral plans. 10:11 Patient left the ED. db Signatures: Waleska Walls RN RN Kamini Orellana, RN RN db Thomas Smith MD MD rt Blanka Kendall im Corrections: (The following items were deleted from the chart) 08:48 08:29 Acuity: AISHA 4 hb hb
--- NOTE | 2024-03-10 09:56 | EDPHYS ---
Physician Documentation [facility] Name: Piter Iglesias Age: 58 yrs Sex: Male : 1965 Arrival Date: 03/10/2024 Time: 08:17 Bed 14 Private MD: ED Physician Thomas Smith HPI: 03/10 09:10 This 58 yrs old Black Male presents to ER via Ambulatory with complaints of Pain All rt Over. 09:10 Patient presents to the ED with continued generalized pain. Patient was seen in the ED rt last night for musculoskeletal pain, was given medications at discharge, patient did not leave the waiting room. Patient checked in, stating that he was no better. Patient reports pain mostly to his right shoulder with movement reports pain essentially everywhere else. Denies other acute complaints at this time, symptoms are moderate in severity, no other aggravating alleviating factors.. Historical: - Allergies: 08:31 Nuts; hb - PMHx: 08:31 elevated creatinine levels; Anxiety; Asthma; Crohn's Disease; depressive disorder; hb diabetes mellitus; elevated liver enzymes; Hyperlipidemia; Hypertension; spinal stenosis; ulcerative colitis; - PSHx: 08:31 Cholecystectomy; intestinal Surgery; hb - Immunization history:: Adult Immunizations up to date. - Infectious Disease History:: Denies. - Social history:: Smoking status: Patient/guardian denies using tobacco. - Family history:: not pertinent. ROS: 09:10 Constitutional: Negative for fever, chills, and weight loss, Cardiovascular: Negative rt for chest pain, palpitations, and edema, Respiratory: Negative for shortness of breath, cough, wheezing, and pleuritic chest pain, Abdomen/GI: Negative for abdominal pain, nausea, vomiting, diarrhea, and constipation, Skin: Negative for injury, rash, and discoloration, Neuro: Negative for headache, weakness, numbness, tingling, and seizure, 09:10 MS/extremity: Positive for pain, Negative for injury or acute deformity, Exam: 09:10 Constitutional: This is a well developed, well nourished patient who is awake, alert, rt and in no acute distress. Head/Face: Normocephalic, atraumatic. Chest/axilla: Normal chest wall appearance and motion. Nontender with no deformity. No lesions are appreciated. Cardiovascular: Regular rate and rhythm with a normal S1 and S2. No gallops, murmurs, or rubs. Normal PMI, no JVD. No pulse deficits. Respiratory: Lungs have equal breath sounds bilaterally, clear to auscultation and percussion. No rales, rhonchi or wheezes noted. No increased work of breathing, no retractions or nasal flaring. Skin: Warm, dry with normal turgor. Normal color with no rashes, no lesions, and no evidence of cellulitis. MS/ Extremity: Pulses equal, no cyanosis. Neurovascular intact. Full, normal range of motion. Neuro: Awake and alert, GCS 15, oriented to person, place, time, and situation. Cranial nerves II-XII grossly intact. Motor strength 5/5 in all extremities. Sensory grossly intact. Cerebellar exam normal. Normal gait. 09:10 Abdomen/GI: Surgical scars noted on abdomen, no focal areas of tenderness or distention, Vital Signs: 08:29 BP 148 / 108; Pulse 89; Resp 20; Temp 97.9(TE); Pulse Ox 100% on R/A; Weight 86.18 kg; hb Height 5 ft. 3 in. ; Pain 10/10; 09:00 BP 119 / 93; Pulse 77; Resp 18; Pulse Ox 100% on R/A; db 10:00 BP 130 / 90; Pulse 82; Resp 18; Pulse Ox 97% on R/A; db 08:29 Body Mass Index 33.66 (86.18 kg, 160.02 cm) hb 08:29 Pain Scale: Adult hb MDM: 08:35 Patient medically screened. rt 17:52 Differential Diagnosis Rheumatoid arthritis, electrolyte disturbance. Data reviewed: rt vital signs, nurses notes, lab test result(s). Care significantly affected by the following chronic conditions: Rheumatoid arthritis. Counseling: I had a detailed discussion with the patient and/or guardian regarding the historical points, exam findings, and any diagnostic results supporting the discharge/admit diagnosis, lab results, the need for outpatient follow up. Response to treatment: the patient's symptoms have mildly improved after treatment. 03/10 08:43 Order name: CBC with Diff; Complete Time: 09:38 rt 03/10 08:43 Order name: CMP; Complete Time: :38 rt 03/10 08:43 Order name: CPK; Complete Time: 09:38 rt Administered Medications: 09:06 Drug: NS 0.9% IV 1000 ml IV at 1000 ml once Route: IV; Rate: 1000 ml; Site: left db antecubital; 10:11 Follow up: Response: No adverse reaction; IV Status: Completed infusion; IV Intake: db 1000ml 09:06 Drug: [place] PO 10 mg-325 mg 1 tabs PO once Route: PO; db 10:11 Follow up: Response: No adverse reaction db 09:06 Drug: Cyclobenzaprine PO 10 mg PO once Route: PO; db 10:11 Follow up: Response: No adverse reaction db Disposition Summary: 03/10/24 09:55 Discharge Ordered Notes: Location: Home rt Problem: new rt Symptoms: have improved rt Condition: Stable rt Diagnosis - Rheumatoid arthritis, unspecified rt Followup: rt - With: Private Physician - When: 2 - 3 days - Reason: Discharge Instructions: - Discharge Summary Sheet rt - Rheumatoid Arthritis rt Forms: - Medication Reconciliation Form rt - Antibiotic Education rt - Prescription Opioid Use rt - Patient Portal Instructions rt - Leadership Thank You Letter rt Signatures: Dispatcher [employer] Waleska Garcia, RN RN Kamini Dave, RN RN db Thomas Smith MD MD rt
[2024-03-10 10:45] VITALS: BP 130/90; TEMP 97.9; O2SAT 97
== END 2024-03-10 10:11 | disposition home or self-care (01) ==
LOC: ER 08:17
DX: M06.9 Rheumatoid arthritis, unspecified (principal); Z91.018 Allergy to other foods
CPT/HCPCS: 85025; 36415; 82550; 80053; J7030; 96360; 99284

== ENCOUNTER 2024-03-20 12:34 | Emergency (ER) | payer OTHER ==
--- OUTSIDE RECORDS SUMMARY | 2024-03-20 12:39 | XMS REPORT | Continuity of Care Document ---
Author Name Unknown Address [address] [facility] [address] [place] [address] [facility] thconnect Address [address] [facility] 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 Role Phone ANGEL TIWARI Primary Care [...] on Date Source [facility]NON -IVEL[facility]SE HMO 15 [id number] 2024 00:00:00 MEDICARE-PART B 5 [id number] 2023 00:00:00 [facility] [place] 7 [id number] 2023 00:00:00 [employer] DUAL ACCESS OPEN PPO [id number] 2022 00:00:00 MEDICAID [facility] [id number] 2022 00:00:00 [facility] (MEDICARE REPLACEMENT/ADVANTA GE - HMO) [id number] 2021 00:00:00 [place] FORMERLY [facility] (INSTITUTIONAL) [id number] [facility] (MEDICARE REPLACEMENT/ADVANTA GE - PPO) [id number] [place] [id number] [facility] (MEDICARE REPLACEMENT/ADVANTA GE - HMO) [id number] 2021 00:00:00 [employer] (MEDICARE REPLACEMENT/ADVANTA GE - PPO) [id number] Problems Condition Name Condition Details Condition Category [...] Hyperlipid emia Problem Active 03-30 00:00: 00 [facility] Benign essential hypertensi on Benign Essential Hypertensi on Problem Active 03-30 00:00: 00 [facility] Mixed anxiety and depressive disorder Mixed Anxiety and Depressive Disorder Problem Active -16 00:00: 00 [facility] Gastro-eso phageal reflux disease with esophagiti s Gastro-eso phageal Reflux Disease with Esophagiti s Problem Active 10-18 00:00: 00 [facility] Crohn's disease of colon Crohn's Disease of Colon Problem Active 10-18 00:00: 00 [facility] Hyperchole sterolemia Hyperchole sterolemia Problem Active 2020-09 00:00: 00 [facility] Hypertensi ve disorder Hypertensi ve Disorder Problem Active 2020-09 00:00: 00 [facility] No known active problems No known active problems Disease [facility] Allergies, Adverse Reactions, Alerts Allergy Name Allergy Type Status Severity Reaction(s) Onset Date Inactive Date Treating Clinician Comments Source NO KNOWN ALLERGIE S Drug Class Active [facility] Social History Social Habit Start Date Stop Date Quantity Comments Source Sexual orientation Zulema larry Tyrel - External Alcohol intake 2023-08-31 00:00:00 2023-08-31 00:00:00 Lifetime non-drinker (finding) Ivelisse Sarah - External History of Social function 2023-08-22 00:00:00 2023-08-22 00:00:00 Ivelisse Sarah - External Exposure to SARS-CoV-2 (event) 2022-07-23 00:00:00 2022-08-02 02:07:[address] [facility] Sex Assigned At 1965 00:00:00 1965 00:00:00 Ivelisse Sarah - External Smoking Status Start Date Stop Date Source Current Every Day Smoker [facility] Tobacco smoking consumption unknown [facility] Never smoked tobacco Ivelisse Sarah - [...] MG oral Tablet 2022-09 00:00: 00 Yes [id number] 600mg Take 1 tablet (600 mg total) by mouth 3 times daily. Ivelisse perez Duloxetine HCl [address] Particles 2022-09 00:00: 00 Yes [id number] 30mg Take 1 capsule (30 mg total) by mouth daily. Ivelisse perez Meloxicam 15 MG oral Tablet 2022-09 00:00: 00 10-16 05:59 :00 No [id number] 15mg Take 1 tablet (15 mg total) by mouth daily. Ivelisse perez Amlodipine Besylate 10 MG oral Tablet 2022-09 00:00: 00 Yes [id number] 10mg Take 1 tablet (10 mg total) by mouth daily. Ivelisse perez Cyclobenzap rine HCl 10 MG oral Tablet 2022-09 00:00: 00 Yes [id number] 10mg Q.5D Take 1 tablet (10 mg total) by mouth 2 times daily as needed No driving on medication . Ivelisse perez hydrOXYzine HCl 25 MG oral Tablet 2022-09 00:00: 00 Yes [id number] 25mg QD Take 1 tablet (25 mg total) by mouth daily as needed. Ivelisse perez Metformin HCl 500 MG oral Tablet 2022-09 00:00: 00 Yes [id number] 500mg Take 1 tablet (500 mg total) by mouth every morning. Ivelisse perez Gabapentin 800 MG oral Tablet 2022-09 00:00: 00 08-31 00:00 :00 No [id number] 800mg Take 1 tablet (800 mg total) [...] perez Vitamin D, Ergocalcife rol, 1.25 MG (59872 UT) oral Capsule 9-09 00:00: 00 Yes [id number] Take 1 capsule (50,000 units total) by mouth once a week. Ivelisse perez OneTouch Ultra in vitro Strip 30 00:00: 00 Yes 2 times daily. Ivelisse perez Lancets (OneTouch Delica Plus [id number]) does not apply Misc 05-15 00:00: 00 Yes 2 times daily. Ivelisse perez Lancets (OneTouch Delica Plus [id number]) does not apply Misc 05-15 00:00: 00 [...] 2021-09 10:15: 00 08-02 10:15 :00 No [id number] 75mL 75 mL, Intravenou s, ONCE, 1 dose, On Mon08/02/22 at 0415, Routine [facility] ondansetron (ZOFRAN) 4 mg tablet 2021-09 00:00: 00 Yes [id number] 4mg Take 1 tablet by mouth every 8 (eight) hours as needed for Nausea and Vomiting (N/V). [facility] albuterol sulfate HFA 90 mcg/actuati on aerosol inhaler INHALE TWO (2) PUFFS BY MOUTH EVERY 4 TO 6 HOURS. albuterol sulfate HFA 90 mcg/actuati on aerosol inhaler INHALE TWO (2) PUFFS BY MOUTH EVERY 4 TO 6 HOURS. No albuterol sulfate HFA 90 mcg/actuat ion aerosol inhaler INHALE TWO (2) PUFFS BY MOUTH EVERY 4 TO 6 HOURS. [facility] cyanocobala min (vit B-12) 1,000 mcg/mL injection solution Inject 1 mL every month by subcutaneou s route. cyanocobala min (vit B-12) 1,000 mcg/mL injection solution Inject 1 mL every month by subcutaneou s route. No 1mL cyanocobal perez (vit B-12) 1,000 mcg/mL injection solution Inject 1 mL every month by subcutaneo us route. [facility] famotidine 40 mg tablet TAKE 1 TABLET BY MOUTH ONCE DAILY IN THE EVENING famotidine 40 mg tablet TAKE 1 TABLET BY MOUTH ONCE DAILY IN THE EVENING No famotidine 40 mg tablet TAKE 1 TABLET BY MOUTH ONCE DAILY IN THE EVENING [facility] gabapentin 600 mg tablet Take 0.5 tablets twice a day by oral route for 30 days. gabapentin 600 mg tablet Take 0.5 tablets twice a day by oral route for 30 days. No .5 BID gabapentin 600 mg tablet Take 0.5 tablets twice a day by oral route for 30 days. [facility] ibuprofen 800 mg tablet ibuprofen 800 mg tablet No ibuprofen 800 mg tablet [facility] Medrol (Vignesh) 4 mg tablets in a dose pack Take 1 dose pk every day by oral route. Medrol (Vignesh) 4 mg tablets in a dose pack Take 1 dose pk every day by oral route. No 1dose pk(s) Q1D Medrol (Vignesh) 4 mg tablets in a dose pack Take 1 dose pk every day by oral route. [facility] metronidazo le 500 mg tablet TAKE ONE (1) TABLET(S) BY MOUTH THREE TIMES A DAY. metronidazo le 500 mg tablet TAKE ONE (1) TABLET(S) BY MOUTH THREE TIMES A DAY. No metronidaz ole 500 mg tablet TAKE ONE (1) TABLET(S) BY MOUTH THREE TIMES A DAY. [facility] Mobic 15 mg tablet Take 1 tablet every day by oral route for 7 days. Mobic 15 mg tablet Take 1 tablet every day by oral route for 7 days. No 1 Q1D Mobic 15 mg tablet Take 1 tablet every day by oral route for 7 days. [facility] montelukast 10 mg tablet TAKE 1 TABLET BY MOUTH EVERY DAY montelukast 10 mg tablet TAKE 1 TABLET BY MOUTH EVERY DAY No montelukas t 10 mg tablet TAKE 1 TABLET BY MOUTH EVERY DAY [facility] mupirocin 2 % topical ointment APPLY A SMALL AMOUNT TO THE AFFECTED AREA BY TOPICAL ROUTE 3 TIMES PER DAY mupirocin 2 % topical ointment APPLY A SMALL AMOUNT TO THE AFFECTED AREA BY TOPICAL ROUTE 3 TIMES PER DAY No mupirocin 2 % topical ointment APPLY A SMALL AMOUNT TO THE AFFECTED AREA BY TOPICAL ROUTE 3 TIMES PER DAY [facility] omeprazole 40 mg capsule,del ayed release TAKE 1 CAPSULE BY MOUTH ONCE DAILY BEFORE A MEAL omeprazole 40 mg capsule,del ayed release TAKE 1 CAPSULE BY MOUTH ONCE DAILY BEFORE A MEAL No omeprazole 40 mg capsule,de layed release TAKE 1 CAPSULE BY MOUTH ONCE DAILY BEFORE A MEAL [facility] paroxetine 20 mg tablet Take 1 tablet by mouth once daily paroxetine 20 mg tablet Take 1 tablet by mouth once daily No paroxetine 20 mg tablet Take 1 tablet by mouth once daily [facility] propranolol 20 mg tablet TAKE ONE (1) TABLET(S) BY MOUTH TWICE A DAY. propranolol 20 mg tablet TAKE ONE (1) TABLET(S) BY MOUTH TWICE A DAY. No propranolo l 20 mg tablet TAKE ONE (1) TABLET(S) BY MOUTH TWICE A DAY. [facility] tramadol 50 mg tablet TAKE 1 TABLET EVERY 6 HOURS BY ORAL ROUTE NEEDED. as needed for pain tramadol 50 mg tablet TAKE 1 TABLET EVERY 6 HOURS BY ORAL ROUTE NEEDED. as needed for pain No tramadol 50 mg tablet TAKE 1 TABLET EVERY 6 HOURS BY ORAL ROUTE NEEDED. as needed for pain [facility] Immunizations Ordered Immunization Name Filled Immunization Name Date Status Comments Source Influenza vaccine, quadrivalent, adjuvanted Influenza vaccine, quadrivalent, adjuvanted 2021-08-05 12:11:00 Completed [facility] COVID-19 Vaccine(Pfizer)([facility] 2022)(12yrs+) Unknown Completed Ivelisse Aminybo ld - External Influenza vaccine, quadrivalent, adjuvanted, 65+ Unknown Completed Ivelisse Aminybo ld - External Pneumococcal Vaccine, Conjugate 20 Unknown Completed Ivelisse Seybold - External Shingles IM (Shingrix) Unknown Completed Ivelisse Seybold - External Shingles IM (Shingrix) Unknown Completed Ivelisse Seybold - External COVID-19 Vaccine(Pfizer)([facility] 2022)(12yrs+) Unknown Completed Ivelisse Seybo ld - External Influenza vaccine, quadrivalent, adjuvanted, 65+ Unknown Completed Ivelisse Seybo ld - External Pneumococcal Vaccine, Conjugate 20 Unknown Completed Ivelisse Seybold - External Shingles IM (Shingrix) Unknown Completed Ivelisse Seybold - External Shingles IM (Shingrix) Unknown Completed Ivelisse Seybold - External COVID-19 Vaccine(Pfizer)([facility] 2022)(12yrs+) Unknown Completed Ivelisse Aminybo ld [...] External Heart rate 2022-08-02 11:30:00 93 /min [facility] Oxygen saturation in Arterial blood by Pulse oximetry 2022-08-02 11:30:00 96 /min [facility] Systolic blood pressure 2022-08-02 11:00:00 134 mm[Hg] [facility] Diastolic blood pressure 2022-08-02 11:00:00 97 mm[Hg] [facility] Respiratory rate 2022-08-02 11:00:00 21 /min [facility] Body temperature 2022-08-02 08:11:[address] [facility] Body height 2022-08-02 08:11:00 160 cm [facility] Body weight 2022-08-02 08:11:00 79.379 kg [facility] BMI 2022-08-02 08:11:00 31.00 kg/m2 [facility] BP Diastolic 2022-05-05 00:00:00 89 mm[Hg] [facility] Height 2022-05-05 00:00:00 68 [in_i] [facility] BMI (Body Mass Index) 2022-05-05 00:00:00 27.5 kg/m2 [facility] BP Systolic 2022-05-05 00:00:00 132 mm[Hg] [facility] Body Weight 2022-05-05 00:00:00 2891.2 [oz_av] [facility] BP Diastolic 2022-04-27 00:00:00 96 mm[Hg] [facility] Height 2022-04-27 00:00:00 68 [in_i] [facility] BMI (Body Mass Index) 2022-04-27 00:00:00 26.5 kg/m2 [facility] BP Systolic 2022-04-27 00:00:00 131 mm[Hg] [facility] Body Weight 2022-04-27 00:00:00 2792 [oz_av] [facility] BP Diastolic 2022-03-30 00:00:00 67 mm[Hg] [facility] Height 2022-03-30 00:00:00 68 [in_i] [facility] BMI (Body Mass Index) 2022-03-30 00:00:00 26.5 kg/m2 [facility] BP Systolic 2022-03-30 00:00:00 106 mm[Hg] [facility] Body Weight 2022-03-30 00:00:00 2784 [oz_av] [facility] BP Diastolic 2022-02-28 00:00:00 93 mm[Hg] [facility] Height 2022-02-28 00:00:00 68 [in_i] [facility] BMI (Body Mass Index) 2022-02-28 00:00:00 26.5 kg/m2 [facility] BP Systolic 2022-02-28 00:00:00 132 mm[Hg] [facility] Body Weight 2022-02-28 00:00:00 2784 [oz_av] [facility] BP Diastolic 2022-01-31 00:00:00 92 mm[Hg] [facility] Height 2022-01-31 00:00:00 68 [in_i] [facility] BMI (Body Mass Index) 2022-01-31 00:00:00 26.8 kg/m2 [facility] BP Systolic 2022-01-31 00:00:00 128 mm[Hg] [facility] Body Weight 2022-01-31 00:00:00 2816 [oz_av] [facility] BP Diastolic 2022-01-03 00:00:00 87 mm[Hg] [facility] Height 2022-01-03 00:00:00 68 [in_i] [facility] BMI (Body Mass Index) 2022-01-03 00:00:00 26.8 kg/m2 [facility] BP Systolic 2022-01-03 00:00:00 124 mm[Hg] [facility] Body Weight 2022-01-03 00:00:00 2816 [oz_av] [facility] BP Diastolic 2021-12-06 00:00:00 85 mm[Hg] [facility] Height 2021-12-06 00:00:00 68 [in_i] [facility] BMI (Body Mass Index) 2021-12-06 00:00:00 27.4 kg/m2 [facility] BP Systolic 2021-12-06 00:00:00 131 mm[Hg] [facility] Body Weight 2021-12-06 00:00:00 2887 [oz_av] [facility] BP Diastolic 2021-11-18 00:00:00 85 mm[Hg] [facility] Height 2021-11-18 00:00:00 68 [in_i] [facility] BMI (Body Mass Index) 2021-11-18 00:00:00 27.4 kg/m2 [facility] BP Systolic 2021-11-18 00:00:00 133 mm[Hg] [facility] Body Weight 2021-11-18 00:00:00 2880 [oz_av] [facility] BP Diastolic 2021-10-05 00:00:00 89 mm[Hg] [facility] Height 2021-10-05 00:00:00 68 [in_i] [facility] BMI (Body Mass Index) 2021-10-05 00:00:00 27.7 kg/m2 [facility] BP Systolic 2021-10-05 00:00:00 124 mm[Hg] [facility] Body Weight 2021-10-05 00:00:00 2912 [oz_av] [facility] BP Diastolic 2021-08-24 00:00:00 78 mm[Hg] [facility] Height 2021-08-24 00:00:00 68 [in_i] [facility] BMI (Body Mass Index) 2021-08-24 00:00:00 28.6 kg/m2 [facility] BP Systolic 2021-08-24 00:00:00 122 mm[Hg] [facility] Body Weight 2021-08-24 00:00:00 188 [lb_av] [facility] BP Diastolic 2021-08-05 00:00:00 84 mm[Hg] [facility] Height 2021-08-05 00:00:00 68 [in_i] [facility] BMI (Body Mass Index) 2021-08-05 00:00:00 27.5 kg/m2 [facility] BP Systolic 2021-08-05 00:00:00 118 mm[Hg] [facility] Body Weight 2021-08-05 00:00:00 2896 [oz_av] [facility] Procedures Procedure Date / Time Performed Performing Clinician Source URINALYSIS 2022-08-02 10:17:00 [facility] ABDOMEN PELVIS W CONTRAST 2022-08-02 09:15:[address] [facility] LIPASE 2022-08-02 08:16:00 [facility] HEPATIC FUNCTION PANEL ([id number]) (ALB,T.PRO,BILI T,BU/BC,ALT,AST,ALK PHOS) 2022-08-02 08:16:[address] [facility] BASIC METABOLIC PANEL (NA, K, CL, CO2, GLUCOSE, BUN, CREATININE, CA) 2022-08-02 08:16:[address] [facility] CBC WITH DIFF 2022-08-02 08:16:00 [facility] + [facility] 2 view 2022-04-27 00:00:00 [facility] XR, knee, 3 view 2022-04-27 00:00:00 [facility] XR, lumbosacral spine, 2 or 3 view 2022-04-27 00:00:00 [facility] XR, thoracic spine, 2 view 2022-04-27 00:00:00 [facility] XR, shoulder, 2 or more view 2022-04-27 00:00:[address] [facility] [address], abdomen + pelvis, w/o contrast 2022-04-27 00:00:00 [facility] ECG WITH INTERPRETATION 12 LEADS 2021-08-05 00:00:00 [facility] XR, chest, 2 view 2021-08-05 00:00:00 [facility] Cardiac Catheterization 2018-03-18 00:00:00 [facility] Partial Resection of Colon 1999-09-18 00:00:00 [facility] Cholecystectomy [facility] dical [facility] Plan of Care Planned Activity Planned Date Details Comments Source Diagnostic Test Pending 2022-05-05 00:00:00 CMP, serum or plasma [code = CMP, serum or plasma] [facility] Diagnostic Test Pending 2022-05-05 00:00:00 urinalysis, complete [code = urinalysis, complete] [facility] Diagnostic Test Pending 2022-05-05 00:00:00 microalbumin/creat inine, mass ratio, urine [code = microalbumin/creat inine, mass ratio, urine] [facility] Encounters Start Date/Time End Date/Time Encounter Type Admission Type Attending [facility] Care Department Encounter ID Source 2023-06-28 10:30:00 Inpatient DEEJAY BARRY [facility] [id number] [facility] 2024-03-08 00:00:00 2024-03-08 00:00:00 Outpatient RICH SANCHEZ [id number] Ivelisse [facility] 2024-02-21 11:00:00 2024-02-21 11:00:00 Outpatient KADIE CONTRERAS [id number] Ivelisse [facility] 2023-12-13 00:00:00 2023-12-13 00:00:00 Outpatient GRISEL[facility]ILLI[facility] [id number] [facility]-30 15:45:00 2023-11-30 15:45:00 Outpatient GRISELDA MCWILLIAMS [id number] Ivelisse smith 2023-11-27 00:00:00 2023-11-27 00:00:00 Outpatient GRISELDA MCWILLIAMS [id number] [facility] 2023-11-16 00:00:00 2023-11-16 00:00:00 Outpatient PREZAS, RICH IVELISSE RAMOS [id number] Ivelisse Seybold 2023-11-13 00:00:00 2023-11-13 00:00:00 Outpatient MCWILLIAMS, GRISELDA RAMOS [id number] Ivelisse Seybold 2023-11-02 00:00:00 2023-11-02 00:00:00 Outpatient PREZASRICH IVELISSE RAMOS [id number] Ivelisse Seybold 2023-11-02 00:00:00 2023-11-02 00:00:00 Outpatient MCWILLIAMS, GRISELDA RAMOS [id number] Ivelisse Seybold 2023-11-02 00:00:00 2023-11-02 00:00:00 Outpatient MCWILLIAMS, GRIESLDA RAMOS [id number] Ivelisse Seybold 2023-11-02 00:00:00 2023-11-02 00:00:00 Outpatient MD [facility]ISSE WOLFE [id number] [facility] 2023-10-31 00:00:00 2023-10-31 00:00:00 Outpatient PREZAS RICH RAMOS [id number] Ivelisse Seybold 2023-10-19 00:00:00 2023-10-19 00:00:00 Outpatient IVELISSE RAMOS [id number] Ivelisse Seybold 2023-10-17 00:00:00 2023-10-17 00:00:00 Outpatient IVELISSE RAMOS [id number] Ivelisse Seybold 2023-08-31 15:30:00 2023-08-31 15:30:00 Outpatient MCWILLIAMS, GRISELDA RAMOS [id number] Ivelisse Seybold 2023-08-31 13:45:00 2023-08-31 13:45:00 Outpatient MCWILLIAMSGRISELDA [id number] Ivelisse Seybold 2023-08-29 00:00:00 2023-08-29 00:00:00 Outpatient PREZASRICH [id number] Ivelissegeorgiana Sarah 2023-08-29 00:00:00 2023-08-29 00:00:00 Outpatient KADIE CONTRERAS IVELISSE IVELISSE [id number] Ivelisse Sarah 2023-08-25 00:00:00 2023-08-25 00:00:00 Outpatient KADIE CONTRERAS IVELISSE [id number] Ivelisse Sarah 2023-08-23 00:00:00 2023-08-23 00:00:00 Outpatient RICH SANCHEZ IVELISSE RAMOS [id number] Ivelisse Aminjuan 2023-08-22 11:55:00 2023-08-22 11:55:00 Outpatient ESHA IVELISSE RAMOS [id number] Ivelisse Aminjuan 2023-08-22 11:00:00 2023-08-22 11:00:00 Outpatient KADIE CONTRERAS IVELISSE RAMOS [id number] Ivelisse Aminjuan 2023-08-18 00:00:00 2023-08-18 00:00:00 Outpatient IVELISSE RAMOS [id number] Ivelisse [facility] 2023-08-16 10:10:00 2023-08-16 10:10:00 Outpatient IVELISSE RAMOS [id number] Ivelisse [facility] 2023-08-16 00:00:00 2023-08-16 00:00:00 Outpatient IVELISSE RAMOS [id number] Ivelisse [facility] 2023-08-08 14:45:00 2023-08-08 14:45:00 Outpatient ROGERS SHIAN IVELISSE RAMOS [id number] Ivelisse [facility] 2023-08-08 14:30:00 2023-08-08 14:30:00 Outpatient KADIE CONTRERAS IVELISSE RAMOS [id number] Ivelisse [facility] 2022-08-02 02:08:00 2022-08-02 06:26:00 Emergency X KIERRA BAUTISTA [facility] ERT [id number] [facility] 2022-08-02 02:08:00 2022-08-02 06:26:00 Emergency Kierra Bautista S [facility] [id number] [facility] 2022-06-13 00:00:00 2022-06-13 00:00:00 Outpatient Koudela_A [facility] [id number] [facility] 2022-05-18 16:09:00 2022-05-18 18:58:00 Emergency ER Halle Cruz [facility] [id number] [facility] 2022-05-05 10:53:00 2022-05-05 10:53:00 Outpatient AURELIO VÍCTORSAMARA MAHONEYLEY [facility] [id number] [facility] 2022-05-05 00:00:00 2022-05-05 00:00:00 Ariel Saldivar PA-C: [address] [id number] , Ph. Leonid [facility] [id number] 0818 [facility] 2022-04-27 11:14:00 2022-04-27 11:14:00 Outpatient KRISTA TREVINOSAMARA GUZMANLEY [facility] [id number] [facility] 2022-04-27 00:00:00 2022-04-27 00:00:00 RADHA PetitC: [address], [place] [address] , Ph. Yariel_Alfredo [facility] [id number] 0810 [facility] 2022-04-18 13:18:00 2022-04-18 17:27:00 Emergency ER Parker Mina [facility] [id number] [facility] 2022-04-15 00:00:00 2022-04-15 00:00:00 [facility] [id number] [facility] 2022-03-30 00:00:00 2022-03-30 00:00:00 Ariel Saldviar PA-C: [address], [place] [address] , Ph. Yariel_A [facility] [id number] 0713 [facility] 2022-02-28 00:00:00 2022-02-28 00:00:00 Ariel Saldivar PA-C: [address], [place] [address] , Ph. Yariel_A [facility] 612 [facility] 2022-02-25 13:30:00 2022-02-25 19:22:00 Emergency ER Denise Rider [facility] [id number] [facility] 2022-02-05 12:33:00 2022-02-05 12:33:00 Outpatient Yariel_A [facility] [id number] [facility] 2022-01-31 11:31:00 2022-01-31 11:31:00 Outpatient ARIEL MARADIAGA [facility] [id number] [facility] 2022-01-31 00:00:00 2022-01-31 00:00:00 Ariel Saldivar PA-C: [address], [place] [address] , Ph. Yariel_Alfredo [facility] 16 [facility] 2022-01-12 09:58:00 2022-01-12 09:58:00 Outpatient Shira Kamara [facility] [id number] [facility] 2022-01-03 00:00:00 2022-01-03 00:00:00 Ariel Saldivar PA-C: [address], [place] [address] , Ph. Yariel_Alfredo [facility]18 [facility] 2021-12-17 06:11:00 2021-12-17 06:11:00 Outpatient Yariel_A [facility] [id number] [facility] 2021-12-06 00:00:00 2021-12-06 00:00:00 Ariel Saldivar PA-C: [address], [place] [address] , Ph. Yariel_Alfredo [facility] 0321 [facility] 2021-12-02 10:10:00 2021-12-02 10:10:00 Outpatient Deejay Barry [facility] [id number] [facility] 2021-11-18 10:39:00 2021-11-18 10:39:00 Outpatient ARIEL MARADIAGA [facility] [id number] [facility] 2021-11-18 00:00:00 2021-11-18 00:00:00 Ariel Saldivar PA-C: [address] [facility] [address] [facility] [address], [place] [address] , Ph. Yariel_Alfredo [facility] 0303 [facility] 2021-11-17 10:55:00 2021-11-17 10:55:00 Outpatient Deejay Barry [facility] [id number] [facility] [facility] 2021-10-29 04:41:00 2021-10-29 04:41:00 Outpatient Yariel_A [facility] [id number] 021 [facility] 2021-10-27 02:05:00 2021-10-27 02:05:00 Outpatient Koudela_A [facility] [place] [id number] [facility] 2021-10-19 09:53:00 2021-10-19 09:53:00 Outpatient Deejay Barry [facility] [id number] [facility] 2021-10-18 11:04:00 2021-10-18 11:04:00 Outpatient Koudela_A [facility] 2021-10-05 00:00:00 2021-10-05 00:00:00 Ariel Saldivar PA-C: [address] [facility] [address], [place] [address] , Ph. Koudela_A MMG [facility] 0118 [facility] 2021-09-26 12:55:00 2021-10-01 14:03:00 Inpatient ER Jacy Jimenez [facility] MED [id number] [facility] 2021-09-25 11:01:00 2021-09-25 14:06:00 Emergency ER ANITA MONTANEZ [facility] [id number] [facility] 2021-08-25 05:53:00 2021-08-25 05:53:00 Outpatient Koudela_A [facility] [id number] [facility] 2021-08-24 00:00:00 2021-08-24 00:00:00 Miah Bruno MD: [address] [facility] [address] [address] , Ph. [phone] Koudela_A MMG [facility] 2021-08-09 04:17:00 2021-08-09 04:17:00 Outpatient Koudela_A [facility] [id number] 2021-08-06 10:50:00 2021-08-06 10:50:00 Outpatient Koudela_A MMG [facility] [id number] [facility] 2021-08-05 00:00:00 2021-08-05 00:00:00 Ariel Saldivar PA-C: [address] [place] [address] [address] [address] , Ph. Koudela_A MMG [facility] 1117 [facility] 2021-08-04 05:51:00 2021-08-04 05:51:00 Outpatient Koudela_A MMG [facility] [id number] 1117 [facility] 2021-08-03 01:34:00 2021-08-03 01:34:00 Outpatient Zuniga_F MMG [facility] [id number] 1116 [facility] 2021-05-29 07:18:00 2021-05-29 12:30:00 Emergency ER JORGE A FRANCO [facility] [id number] [facility] 2021 21:16:00 2021 22:23:00 Emergency ER TROY ROJAS [facility] [id number] [facility] 2021-04-05 02:45:00 2021-04-05 02:45:00 Outpatient Zuniga_F MMG [facility] [id number] 07 [facility] Results Test Description Test Time Test Comments Results Result Co mments Source [facility] W Auto Differential panel - Gnoug1702-08-03 09:29:00 * Test Item Value Reference Range Interpretation Comme nts white blood count (test code = white blood count) 6.2 K/uL 4.0-12.3 red blood count (test code = red blood count) 4.90 M/uL 3.80-5.80 hemoglobin (test code = hemoglobin) 14.1 g/dL 11.7-17.2 hematocrit (test code = hematocrit) 43.3 % 35.0-51.0 MCV [Entitic volume] (test c ode = 64288-0) 88.4 fL 83.0-100.0 mean corpuscular hemoglobin (test [...] neutrophils/100 leukocytes in Blood (test code = 30772-5) 52.9 % 44.7-82.4 Immature granulocytes [#/vol ume] in Blood (test code = 44255-0) 0.01 K/uL 0.00-0.03 lymphocyte% (test code = lymphocyte%) 32.5 % 10.0-50.0 mono % (test code = mono %) 11.7 % 3.9-13.4 eos % (test code = eos %) 2.1 % 0.0-6.4 basophil % (test code = baso lai %) 0.6 % 0.2-1.2 Band form neutrophils [#/vol ume] in Blood (test code = 59444-6) 3.30 K/uL 1.78-5.38 Lymphocytes [#/volume] in Sp ecimen by Automated count (test code = 20141-3) 2.03 K/uL 1.32-3.57 mono # (test code = mono #) 0.73 K/uL 0.30-0.82 eos # (test code = eos #) 0.13 K/uL 0.04-0.54 basophil # (test code = baso lai #) 0.04 K/uL 0.01-0.08 NRBC% (test code = NRBC%) 0 /100 WBC 0-0.2 NRBC# (test code = NRBC#) 0 K/uL [facility] GroupDifferential panel, method unspecified - [id number] 09:29:00NeutrophilsBandLymphocyteAtypical LymphMonocyteEosinophilBasophilAbs Neutrophil Count (Man)Abs Lymph Count (Man)Abs Monocyte Count (Man)Abs Eosinophil Count (Man)Abs Basophil Count (Man)Platelet EstimatePlatelet MorphologyHypochromasiaPoikilocytosisAnisocytosisStomatocytMagee General HospitalComprehensive metabolic 2000 panel - Serum or [id number] 09:29:00* Test Item Value Reference Range Interpretation [...] (test code = 6768-6) 100 U/L 40-130 [facility] GroupAmylase [Enzymatic activity/volume] in Serum or Plasma 2022-04-27 00:00:00* Test Item Value Reference Range Interpretation Comme nts Amylase [Enzymatic activity/ volume] in Serum or Plasma (test code = 1798-8) 62 U/L 28-100 [facility] Group[facility] [Enzymatic activity/volume] in Serum or Plasma 2022-04-27 00:00:00* Test Item Value Reference Range Interpretation Comme nts lipase (test code = lipase) 41 U/L 13-60 [facility] HospitalUrinalysis complete panel - [id number] 12:30:00* Test Item Value Reference Range Interpretation Comme nts Color of Urine by Auto (test code = 29890-9) light yellow Appearance of Urine (test co de = 5767-9) clear clear Glucose [Presence] in Urine by Automated test strip (test code = 79773-1) negative negative Bilirubin.total [Mass/volume ] in Urine (test code = 1978-6) negative negative Ketones [Mass/volume] in Uri ne by Automated test strip (test code = 53455-2) negative negative Specific gravity of Urine by Automated test strip (test code = 60196-0) 1.029 1.003-1.030 blood urine (test code = blo od urine) negative negative pH of Urine (test code = 2756-5) 7.000 5-9 protein urine (UA) (test cod e = protein urine (UA)) negative negative Urobilinogen [Presence] in Urine (test code = 70568-4) normal 0.2-1.0 Nitrite [Presence] in Urine by Test strip (test code = 5802-4) negative negative Leukocyte esterase [Presence ] in Urine by Automated test strip (test code = 32267-1) negative negative Erythrocytes [#/volume] in Urine by Automated count (test code = 798-9) <1 0-5 Leukocytes [#/area] in Urine sediment by Automated count (test code = 30346-3) <1 0-5 Epithelial cells [Presence] in Urine sediment by Light microscopy (test code = 61015-9) <1 0-5 Bacteria identified in Urine by Culture (test code = 630-4) none detected none detect Casts [#/area] in Urine sediment by Automated count (test code = 72699-5) none detected none detect urine culture added? (test c ode = urine culture added?) no [facility] GroupUrinalysis complete panel - [id number] 12:30:00* Test Item Value Reference Range Interpretation Comme nts Color of Urine by Auto (test code = 48286-0) light yellow Appearance of Urine (test co de = 5767-9) clear clear Glucose [Presence] in Urine by Automated test strip (test code = 25352-0) negative negative Bilirubin.total [Mass/volume ] in Urine (test code = 1978-6) negative negative Ketones [Mass/volume] in Uri ne by Automated test strip (test code = 88197-9) negative negative Specific gravity of Urine by Automated test strip (test code = 21447-3) 1.029 1.003-1.030 blood urine (test code = blo od urine) negative negative pH of Urine (test code = 2756-5) 7.000 5-9 protein urine (UA) (test cod e = protein urine (UA)) negative negative Urobilinogen [Presence] in Urine (test code = 18984-7) normal 0.2-1.0 Nitrite [Presence] in Urine by Test strip (test code = 5802-4) negative negative Leukocyte esterase [Presence ] in Urine by Automated test strip (test code = 90621-6) negative negative Erythrocytes [#/volume] in Urine by Automated count (test code = 798-9) <1 0-5 Leukocytes [#/area] in Urine sediment by Automated count (test code = 21935-4) <1 0-5 Epithelial cells [Presence] in Urine sediment by Light microscopy (test code = 49119-7) <1 0-5 Bacteria identified in Urine by Culture (test code = 630-4) none detected none detect Casts [#/area] in Urine sediment by Automated count (test code = 50365-9) none detected none detect urine culture added? (test c ode = urine culture added?) no [facility] GroupBlood type and Indirect antibody screen panel - Blood 2022-04-18 11:39:00* Test Item Value Reference Range Interpretation Comme nts Rh [Type] in Blood (test cod e = 23148-3) 4+ ABO and Rh group panel - Blo od (test code = 12864-1) A positive [facility] GroupBlood type and Indirect antibody screen panel - Blood 2022-04-18 11:39:00* Test Item Value Reference Range Interpretation Comme nts Rh [Type] in Blood (test cod e = 77697-2) 4+ ABO and Rh group panel - Blo od (test code = 55777-9) A positive [facility] GroupCBC panel - Blood by Automated [id number] 11:34:00* Test Item Value Reference Range Interpretation Comme nts white blood count (test code = white blood count) 6.5 K/uL 4.0-12.3 red blood count (test code = red blood count) 4.52 M/uL 3.80-5.80 hemoglobin (test code = hemoglobin) 13.5 g/dL 11.7-17.2 hematocrit (test code = hematocrit) 39.6 % 35.0-51.0 MCV [Entitic volume] (test c ode = 44515-6) 87.6 fL 83.0-100.0 mean corpuscular hemoglobin (test [...] mean platelet volume) 8.0 fL 9.4-12.6 L [facility] GroupPT/[id number] 11:34:00* Test Item Value Reference Range Interpretation Comme nts prothrombin time (test code = prothrombin time) 9.9 seconds 10.3-12.3 L INR in Blood by Coagulation assay (test code = 32643-6) <0.94 [facility] Hospitalpartial thromboplastin [id number] 11:34:00* Test Item Value Reference Range Interpretation Comme nts INR in Blood by Coagulation assay (test code = 13413-0) 24.5 seconds 22.5-37.0 [facility] HospitalComprehensive metabolic 2000 panel - Serum [...] (test code = 6768-6) 91 U/L 40-130 [facility] HospitalCreatine kinase [Enzymatic activity/volume] in Serum or [id number] 11:34:00* Test Item Value Reference Range Interpretation Comme nts creatine kinase (test code = creatine kinase) 192 U/L 20-200 [facility] by Automated [id number] 11:34:00* Test Item Value Reference Range Interpretation Comme nts white blood count (test code = white blood count) 6.5 K/uL 4.0-12.3 red blood count (test code = red blood count) 4.52 M/uL 3.80-5.80 hemoglobin (test code = hemoglobin) 13.5 g/dL 11.7-17.2 hematocrit (test code = hematocrit) 39.6 % 35.0-51.0 MCV [Entitic volume] (test c ode = 92665-4) 87.6 fL 83.0-100.0 mean corpuscular hemoglobin (test [...] mean platelet volume) 8.0 fL 9.4-12.6 L [facility] HospitalPT/[id number] 11:34:00* Test Item Value Reference Range Interpretation Comme nts prothrombin time (test code = prothrombin time) 9.9 seconds 10.3-12.3 L INR in Blood by Coagulation assay (test code = 52681-6) <0.94 [facility] Hospitalpartial thromboplastin [id number] 11:34:00* Test Item Value Reference Range Interpretation Comme nts INR in Blood by Coagulation assay (test code = 36251-4) 24.5 seconds 22.5-37.0 [facility] HospitalComprehensive metabolic 2000 panel - Serum [...] (test code = 6768-6) 91 U/L 40-130 [facility] HospitalCreatine kinase [Enzymatic activity/volume] in Serum or [id number] 11:34:00* Test Item Value Reference Range Interpretation Comme nts creatine kinase (test code = creatine kinase) 192 U/L 20-200 [facility] W Auto Differential panel - [id number] 09:45:00 * Test Item Value Reference Range Interpretation Comme nts white blood count (test code = white blood count) 5.6 K/uL 4.0-12.3 red blood count (test code = red blood count) 4.27 M/uL 3.80-5.80 hemoglobin (test code = hemoglobin) 12.6 g/dL 11.7-17.2 hematocrit (test code = hematocrit) 38.2 % 35.0-51.0 MCV [Entitic volume] (test c ode = 62729-9) 89.5 fL 83.0-100.0 mean corpuscular hemoglobin (test [...] neutrophils/100 leukocytes in Blood (test code = 96917-0) 46.8 % 44.7-82.4 Immature granulocytes [#/vol ume] in Blood (test code = 75096-3) 0.01 K/uL 0.00-0.03 lymphocyte% (test code = lymphocyte%) 36.8 % 10.0-50.0 mono % (test code = mono %) 11.7 % 3.9-13.4 eos % (test code = eos %) 3.6 % 0.0-6.4 Basophils/100 leukocytes in Specimen (test code = 75705-6) 0.9 % 0.2-1.2 Band form neutrophils [#/vol ume] in Blood (test code = 67642-1) 2.64 K/uL 1.78-5.38 Lymphocytes [#/volume] in Sp ecimen by Automated count (test code = 53883-2) 2.07 K/uL 1.32-3.57 mono # (test code = mono #) 0.66 K/uL 0.30-0.82 eos # (test code = eos #) 0.20 K/uL 0.04-0.54 basophil # (test code = baso lai #) 0.05 K/uL 0.01-0.08 NRBC% (test code = NRBC%) 0 /100 WBC 0-0.2 NRBC# (test code = NRBC#) 0 K/uL [facility] HospitalComprehensive metabolic 2000 panel - Serum [...] (test code = 6768-6) 91 U/L 40-130 [facility] HospitalLipid 1996 panel - Serum or [id number] 09:45:00* Test Item Value Reference Range Interpretation [...] (test code = cholesterol risk ratio) 3.138 [facility] HospitalUrinalysis complete W Reflex Culture panel - Urine 2022-01-31 09:45:00* Test Item Value Reference Range Interpretation Comme nts Color of Urine by Auto (test code = 46131-7) yellow Appearance of Urine (test co de = 5767-9) clear clear Glucose [Presence] in Urine by Automated test strip (test code = 52690-3) negative negative Bilirubin.total [Mass/volume ] in Urine (test code = 1978-6) negative negative Ketones [Mass/volume] in Uri ne by Automated test strip (test code = 54998-3) negative negative Specific gravity of Urine by Automated test strip (test code = 27205-5) 1.031 1.003-1.030 H blood urine (test code = blo od urine) negative negative pH of Urine (test code = 2756-5) 6.000 5-9 protein urine (UA) (test cod e = protein urine (UA)) =1+ (30 negative H Urobilinogen [Presence] in Urine (test code = 84505-9) =2.0 0.2-1.0 H Nitrite [Presence] in Urine by Test strip (test code = 5802-4) negative negative Leukocyte esterase [Presence ] in Urine by Automated test strip (test code = 34752-9) negative negative Erythrocytes [#/volume] in Urine by Automated count (test code = 798-9) =1-5 0-5 Leukocytes [#/area] in Urine sediment by Automated count (test code = 30929-5) <1 0-5 Epithelial cells [Presence] in Urine sediment by Light microscopy (test code = 59422-4) <1 0-5 Bacteria identified in Urine by Culture (test code = 630-4) none detected none detect Casts [#/area] in Urine sediment by Automated count (test code = 40654-8) =2-5 none detect urine culture added? (test c ode = urine culture added?) no [facility] HospitalDifferential panel, method unspecified - [id number] 00:00:00NeutrophilsBandLymphocyteAtypical LymphMonocyteEosinophilBasophilMetamyelocyteAbs Neutrophil Count (Man)Abs Lymph Count (Man)Abs Monocyte Count (Man)Abs Eosinophil Count (Man)Abs Basophil Count (Man)Platelet EstimatePlatelet MorphologyMacrocytosisBeacham Memorial Hospital Hemoglobin A1c [Mass/volume] in [id number] 00:00:00* Test Item Value Reference Range Interpretation Comme [facility] Hemoglobin A1c [Mass/volume] in Blood (test code = 21818-1) 5.7 % 4.0-6.0 [facility] HospitalComprehensive metabolic 2000 panel - Serum [...] (test code = 6768-6) 91 U/L 40-130 [facility] HospitalCobalamin (Vitamin B12) [Mass/volume] in Serum or Plasma 2021-11-18 00:00:00* Test Item Value Reference Range Interpretation Comme [facility] vitamin B12, serum (test cod e = vitamin B12, serum) 330 [facility] W Auto Differential panel - [id number] 03:50:00 * Test Item Value Reference Range Interpretation Comme [facility] white blood count (test code = white blood count) 10.6 K/uL 4.0-12.3 red blood count (test code = red blood count) 4.27 M/uL 3.80-5.80 hemoglobin (test code = hemoglobin) 12.1 g/dL 11.7-17.2 hematocrit (test code = hematocrit) 36.6 % 35.0-51.0 MCV [Entitic volume] (test c ode = 60016-3) 85.7 fL 83.0-100.0 mean corpuscular hemoglobin (test [...] neutrophils/100 leukocytes in Blood (test code = 86554-8) 72.9 % 44.7-82.4 Immature granulocytes [#/vol ume] in Blood (test code = 05596-6) 0.10 K/uL 0.00-0.03 H lymphocyte% (test code = lymphocyte%) 19.0 % 10.0-50.0 mono % (test code = mono %) 7.1 % 3.9-13.4 eos % (test code = eos %) 0 % 0.0-6.4 Basophils/100 leukocytes in Unspecified specimen (test code = 50570-5) 0.1 % 0.2-1.2 L Band form neutrophils [#/vol ume] in Blood (test code = 00749-1) 7.75 K/uL 1.78-5.38 H Lymphocytes [#/volume] in Unspecified specimen by Automated count (test code = 96116-8) 2.02 K/uL 1.32-3.57 mono # (test code = mono #) 0.75 K/uL 0.30-0.82 eos # (test code = eos #) 0.00 K/uL 0.04-0.54 L basophil # (test code = baso lai #) 0.01 K/uL 0.01-0.08 NRBC% (test code = NRBC%) 0 /100 WBC 0-0.2 NRBC# (test code = NRBC#) 0 K/uL [facility] metabolic 2000 panel - Serum or [id number] 03:50:00* Test Item Value Reference Range Interpretation [...] = calcium level) 8.0 mg/dL 8.6-10.0 L [facility] HospitalDifferential panel, method unspecified - [id number] 00:00:00NeutrophilsBandLymphocyteAtypical LymphMonocyteEosinophilBasophilMetamyelocyteMyelocytePromyelocyteBlastsNucleated Red Blood CellPlasma CellDifferential CommentAbs Neutrophil Count (Man)Abs Lymph Count (Man)Abs Monocyte Count (Man)Abs Eosinophil Count (Man)Abs Basophil Count (Man)Platelet EstimatePlatelet MorphologyHypochromasiaPoikilocytosisAnisocytosisMicrocytosisMacrocytosisSchisto cytesTarget CellsStomatocyteToxic GranulationBurr CellsHypersegmented PolysSmudge CellsBeacham Memorial HospitalCB W Auto Differential panel - Blood [...] MCV [Entitic volume] (test c ode = 00214-7) 89.2 fL 83.0-100.0 mean corpuscular hemoglobin (test [...] neutrophils/100 leukocytes in Blood (test code = 86151-7) 85.9 % 44.7-82.4 H Immature granulocytes [#/vol ume] in Blood (test code = 67742-6) 0.11 K/uL 0.00-0.03 H lymphocyte% (test code = lymphocyte%) 10.0 % 10.0-50.0 mono % (test code = mono %) 3.0 % 3.9-13.4 L eos % (test code = eos %) 0 % 0.0-6.4 Basophils/100 leukocytes in Unspecified specimen (test code = 95232-2) 0.0 % 0.2-1.2 L Band form neutrophils [#/vol ume] in Blood (test code = 40208-2) 8.69 K/uL 1.78-5.38 H Lymphocytes [#/volume] in Unspecified specimen by Automated count (test code = 81256-1) 1.01 K/uL 1.32-3.57 L mono # (test code = mono #) 0.30 K/uL 0.30-0.82 eos # (test code = eos #) 0.00 K/uL 0.04-0.54 L basophil # (test code = baso lai #) 0.00 K/uL 0.01-0.08 L NRBC% (test code = NRBC%) 0 /100 WBC 0-0.2 NRBC# (test code = NRBC#) 0 K/uL [facility] HospitalBasic metabolic 2000 panel - Serum or [id number] 03:28:00* Test Item Value Reference Range Interpretation [...] = calcium level) 8.3 mg/dL 8.6-10.0 L [facility] HospitalDifferential panel, method unspecified - [id number] 00:00:00NeutrophilsBandLymphocyteAtypical LymphMonocyteEosinophilBasophilMetamyelocyteMyelocytePromyelocyteBlastsNucleated Red Blood CellPlasma CellDifferential CommentAbs Neutrophil Count (Man)Abs Lymph Count (Man)Abs Monocyte Count (Man)Abs Eosinophil Count (Man)Abs Basophil Count (Man)Platelet EstimatePlatelet MorphologyHypochromasiaPoikilocytosisAnisocytosisMicrocytosisMacrocytosisSchisto cytesTarget CellsStomatocyteToxic GranulationBurr CellsHypersegmented PolysSmudge CellsLataNorth Mississippi Medical CenterClostridioides difficile toxin A+B [Presence] in Gyvvp1905-18-23 08:35:00* Test Item Value Reference Range Interpretation Comme nts results (test code = results) Clostridioides difficile [id number] strain DNA [Presence] in Stool by PRANAV with probe detection (test code = 59953-6) 027 presumptive negative [facility] HospitalLeukocytes [Presence] in Stool by Light microscopy 2021-09-29 08:35:00ResultsBeacham Memorial HospitalCBC W Auto Differential panel - [id number] 02:50:00* Test Item Value Reference Range Interpretation Comme nts white blood count (test code = white blood count) 12.0 K/uL 4.0-12.3 red blood count (test code = red blood count) 4.17 M/uL 3.80-5.80 hemoglobin (test code = hemoglobin) 11.9 g/dL 11.7-17.2 hematocrit (test code = hematocrit) 36.2 % 35.0-51.0 MCV [Entitic volume] (test c ode = 14383-8) 86.8 fL 83.0-100.0 mean corpuscular hemoglobin (test [...] neutrophils/100 leukocytes in Blood (test code = 14538-1) 89.1 % 44.7-82.4 H Immature granulocytes [#/vol ume] in Blood (test code = 69219-6) 0.09 K/uL 0.00-0.03 H lymphocyte% (test code = lymphocyte%) 7.4 % 10.0-50.0 L mono % (test code = mono %) 2.8 % 3.9-13.4 L eos % (test code = eos %) 0 % 0.0-6.4 Basophils/100 leukocytes in Unspecified specimen (test code = 78462-3) 0.0 % 0.2-1.2 L Band form neutrophils [#/vol ume] in Blood (test code = 32138-7) 10.72 K/uL 1.78-5.38 H Lymphocytes [#/volume] in Unspecified specimen by Automated count (test code = 51702-6) 0.89 K/uL 1.32-3.57 L mono # (test code = mono #) 0.34 K/uL 0.30-0.82 eos # (test code = eos #) 0.00 K/uL 0.04-0.54 L basophil # (test code = baso lai #) 0.00 K/uL 0.01-0.08 L NRBC% (test code = NRBC%) 0 /100 WBC 0-0.2 NRBC# (test code = NRBC#) 0 K/uL [facility] HospitalBauofl [facility] 2000 panel - Serum or [id number] 02:50:00* Test Item Value Reference Range Interpretation [...] code = calcium level) 8.6 mg/dL 8.6-10.0 [facility] HospitalDifferential panel, method unspecified - [id number] 00:00:00NeutrophilsBandLymphocyteAtypical LymphMonocyteEosinophilBasophilMetamyelocyteMyelocytePromyelocyteBlastsNucleated Red Blood CellDifferential CommentAbs Neutrophil Count (Man)Abs Lymph Count (Man)AbsMonocyte Count (Man)Abs Eosinophil Count (Man)Abs Basophil Count (Man)Platelet EstimatePlatelet Morp hologyHypochromasiaPoikilocytosisAnisocytosisMicrocytosisMacrocytosisTarget CellsBurr CellsHypersegmented PolysJohn C. [facility] metabolic 2000 panel - Serum or [id number] 03:05:00* Test Item Value Reference Range Interpretation [...] code = calcium level) 9.0 mg/dL 8.6-10.0 [facility] W Auto Differential panel - [id number] 03:05:00 * Test Item Value Reference Range Interpretation Comme nts white blood count (test code = white blood count) 14.1 K/uL 4.0-12.3 red blood count (test code = red blood count) 4.35 M/uL 3.80-5.80 hemoglobin (test code = hemoglobin) 12.5 g/dL 11.7-17.2 hematocrit (test code = hematocrit) 37.8 % 35.0-51.0 MCV [Entitic volume] (test c ode = 76278-1) 86.9 fL 83.0-100.0 mean corpuscular hemoglobin (test [...] neutrophils/100 leukocytes in Blood (test code = 68715-2) 88.3 % 44.7-82.4 H Immature granulocytes [#/vol ume] in Blood (test code = 32801-0) 0.09 K/uL 0.00-0.03 H lymphocyte% (test code = lymphocyte%) 8.2 % 10.0-50.0 L mono % (test code = mono %) 2.8 % 3.9-13.4 L eos % (test code = eos %) 0 % 0.0-6.4 Basophils/100 leukocytes in Unspecified specimen (test code = 77130-3) 0.1 % 0.2-1.2 L Band form neutrophils [#/vol ume] in Blood (test code = 40892-6) 12.42 K/uL 1.78-5.38 H Lymphocytes [#/volume] in Unspecified specimen by Automated count (test code = 21991-3) 1.15 K/uL 1.32-3.57 L mono # (test code = mono #) 0.40 K/uL 0.30-0.82 eos # (test code = eos #) 0.00 K/uL 0.04-0.54 L basophil # (test code = baso lai #) 0.01 K/uL 0.01-0.08 NRBC% (test code = NRBC%) 0 /100 WBC 0-0.2 NRBC# (test code = NRBC#) 0 K/uL [facility] HospitalDifferential panel, method unspecified - [id number] 00:00:00NeutrophilsBandLymphocyteAtypical LymphMonocyteEosinophilBasophilMetamyelocyteMyelocytePromyelocyteBlastsNucleated Red Blood CellDifferential CommentAbs Neutrophil Count (Man)Abs Lymph Count (Man)AbsMonocyte Count (Man)Abs Eosinophil Count (Man)Abs Basophil Count (Man)Platelet EstimatePlatelet Morp hologyHypochromasiaPoikilocytosisAnisocytosisMicrocytosisMacrocytosisTarget CellsBurr CellsWayne General Hospital W Auto Differential panel - [...] MCV [Entitic volume] (test c ode = 43477-6) 86.8 fL 83-100 mean corpuscular hemoglobin (test [...] neutrophils/100 leukocytes in Blood (test code = 54448-6) 36.0 % 44.7-82.4 L Immature granulocytes [#/vol ume] in Blood (test code = 31467-3) 0.0 K/uL 0.0-0.03 lymphocyte% (test code = lymphocyte%) 52.2 % 10.0-50.0 H mono % (test code = mono %) 8.4 % 3.9-13.4 eos % (test code = eos %) 2.7 % 0.0-6.4 Basophils/100 leukocytes in Unspecified specimen (test code = 68142-0) 0.6 % 0.2-1.2 Band form neutrophils [#/vol ume] in Blood (test code = 35802-8) 2.49 K/uL 1.78-5.38 Lymphocytes [#/volume] in Unspecified specimen by Automated count (test code = 18064-2) 3.6 K/uL 1.32-3.57 H mono # (test code = mono #) 0.58 K/uL 0.30-0.82 eos # (test code = eos #) 0.19 K/uL 0.04-0.54 basophil # (test code = baso lai #) 0.04 K/uL 0.01-0.08 NRBC% (test code = NRBC%) 0 /100 WBC 0-0.2 NRBC# (test code = NRBC#) 0 K/uL [id number] 10:10:00* Test Item Value Reference Range Interpretation Comme nts prothrombin time (test code = prothrombin time) 9.9 seconds 10.3-12.3 L INR in Blood by Coagulation assay (test code = 40894-1) <0.94 [facility]Com[facility] 2000 [facility] - Serum [...] (test code = 6768-6) 124 U/L 40-130 [facility] [Enzymatic activity/volume] in Serum or [id number] 10:10:00* Test Item Value Reference Range Interpretation Comme nts creatine kinase (test code = creatine kinase) 243 U/L 20-200 H [facility]Different[facility] panel, method unspecified - [id number] 00:00:00NeutrophilsBandLymphocyteAtypical LymphMonocyteEosinophilBasophilMetamyelocyteMyelocyteAbs Neutrophil Count (Man)Abs Lymph Count (Man)Abs Monocyte Count (Man)Abs Eosinophil Count (Man)Abs Basophil Count (Man)Platelet EstimateHypochromasiaMataNorth Mississippi Medical Centerpartial thromboplastin [id number] 00:00:00* Test Item Value Reference Range Interpretation Comme nts INR in Blood by Coagulation assay (test code = 82158-8) 23.6 seconds 22.5-37.0 [facility] HospitalCreatine kinase.MB [Mass/volume] in Serum or Plasma 2021-09-25 00:00:00* Test Item Value Reference Range Interpretation Comme nts Creatine kinase.MB [Mass/vol ume] in Serum or Plasma by Immunoassay (test code = 51706-7) 1.7 NG/mL 0.0-3.6 [facility] [id number] 00:00:00* Test Item Value Reference Range Interpretation Comme nts Troponin T.cardiac [Mass/vol ume] in Blood (test code = 73137-4) <0.01 0-0.011 [facility]
[2024-03-20] MEDS ORDERED: NA CHLORIDE 0.9% 1,000 ML ONE ×3 (12:57→17:11)
[2024-03-20] MEDS ORDERED: NA CHLORIDE 0.9% 100 ML ONE (12:57)
[2024-03-20] MEDS ORDERED: PIPERACIL/TAZO 3.375 GM VIAL IV ONE (12:57)
[2024-03-20] MEDS ORDERED: METRONIDAZOLE 500mg IVPB 500 MG/100 ML BAG IV ONE (12:57)
--- NOTE | 2024-03-20 13:18 | RAD REPORT ---
EXAM DESCRIPTION: RAD - Chest Single View - 03/20/2024 1:12 pm CLINICAL HISTORY: aspiration Chest pain. COMPARISON: <Comparisons> FINDINGS: Portable technique limits examination quality. The lungs are grossly clear. The heart is normal in size. No displaced fractures.Endotracheal tube ti p is above the kiesha. Enteric tube tip is in the stomach. IMPRESSION: No acute intrathoracic process suspected.
[2024-03-20 13:27] LABS: Absolute Eosinophils 0.2 K/uL (0-0.5); Absolute Lymphocytes (CBC) 3.2 K/uL (0.7-4.9); Absolute Monocytes 0.2 K/uL (0.1-1.3); Absolute Neutrophil 3.5 K/uL (1.8-8.0); Basophils % 0.6 % (0-1.3); Eosinophils % 2.5 % (0-4.4); Hematocrit 32.2 % (39.6-49.0); Lymphocytes % 44.3 % (15.3-44.8); MCH 22.9 pg (27.0-35.0); MCV 73.8 fL (80-100); MPV 6.6 fL (7.6-11.3); Monocytes % 3.1 % (3.3-12.3); Neutrophils % 49.5 % (41.7-73.7); Nucleated Red Blood Cells % 0.3 % (0-0); PT Prothrombin Time 11.7 SECONDS (9.4-12.5); Platelets 455 thou/uL (152-406); Protime INR 1.07; RBC Red Blood Cell Count 4.37 M/uL (4.33-5.43); Red Cell Distribution Width 17.7 % (12.1-15.2)
--- NOTE | 2024-03-20 13:44 | ER ---
Nurse's Notes [facility] Name: Piter Iglesias Age: 58 yrs Sex: Male : 1965 Arrival Date: 03/20/2024 Time: 12:34 Bed 3 Private MD: Diagnosis: Aspiration, respiratory failure Presentation: 03/20 12:44 Chief complaint: EMS states: pt was at the GI center for out patient procedure of as6 epidural with steroid infusion. and pt aspirated during procedure. GI center attempted to intubate. EMS intubated on arrival with 7.5 ETT 25 \T\ teeth. used 300 ketamine and 80 vilma for sedation. Coronavirus screen: At this time, the client does not indicate any symptoms associated with coronavirus-19. Ebola Screen: No symptoms or risks identified at this time. Initial Sepsis Screen: Does the patient meet any 2 criteria? Systolic BP < 90 mmHg. Does the patient have a suspected source of infection? No. Patient's initial sepsis screen is negative. Risk Assessment: Do you want to hurt yourself or someone else? Unable to obtain. Onset of symptoms was March 20, 2024. 12:44 Acuity: AISHA 1 as6 12:44 Method Of Arrival: EMS: [facility] as6 Historical: - Allergies: 12:58 Nuts; as6 - PMHx: 12:58 elevated creatinine levels; Anxiety; Asthma; Crohn's Disease; depressive disorder; as6 diabetes mellitus; elevated liver enzymes; Hyperlipidemia; Hypertension; spinal stenosis; ulcerative colitis; - PSHx: 12:58 Cholecystectomy; intestinal Surgery; as6 - Immunization history:: Adult Immunizations not up to date. - Infectious Disease History:: Denies. - Social history:: Smoking status: unknown. Screenin:45 [facility] ED Fall Risk Assessment (Adult) History of falling in the last 3 months, me1 including since admission No falls in past 3 months (0 pts) Confusion or Disorientation No (0 pts) Intoxicated or Sedated Yes (3 pts) Impaired Gait No (0 pts) Mobility Assist Device Used No (0 pt) Altered Elimination No (0 pt) Score/Fall Risk Level 0 - 2 = Low Risk Maintained a safe environment, Hourly rounding (assess needs \T\ fall precautionary measures) done. Abuse screen: Denies threats or abuse. Nutritional screening: No deficits noted. Tuberculosis screening: No symptoms or risk factors identified. Assessment: 12:45 General: Appears in no apparent distress. comfortable, Behavior is unresponsive. me1 Reports Aspirated during a procedure at the GI Center and was intubated on arrival to ED. Pain: Unable to use pain scale. FLACC scale score is 0 out of 10. Neuro: Level of Consciousness is unresponsive, Oriented to UTO as patient is unresponsive. Cardiovascular: Patient's skin is warm and dry. Respiratory: Airway via oral intubation Trachea midline Respiratory pattern is agonal Ventilator assessment: ET Tube: 8.0 23 cm at lip. Ventilator Mode: Assist Control (AC) Tidal Volume: 300 Respiratory Rate: 28 FiO2: 100%. PEEP: 5 HOB > 30 degrees. Suction provided. Breath sounds with crackles bilaterally. GI: No signs and/or symptoms were reported involving the gastrointestinal system. : Mccauley in place. EENT: No signs and/or symptoms were reported regarding the EENT system. Derm: Skin is intact, is healthy with good turgor, Skin is pink, warm \T\ dry. Musculoskeletal: No signs and/or symptoms reported regarding the musculoskeletal system. 17:42 General: bear hugger applied. . me1 Vital Signs: 12:44 BP 79 / 62; Pulse 85; Resp 18; Pulse Ox 100% on ETT vent; FiO2 100 %; as6 12:45 BP 101 / 75; Pulse 78; Resp 2; Pulse Ox 96% on ETT vent; me1 13:00 BP 105 / 78; Pulse 75; Resp 20; Temp 95.8(Ca); Pulse Ox 99% on ETT vent; me1 13:30 BP 110 / 84; Pulse 73; Resp 25; Temp 96(Ca); Pulse Ox 97% on ETT vent; me1 14:00 BP 112 / 81; Pulse 72; Resp 16; Pulse Ox 100% on ETT vent; me1 14:30 BP 104 / 80; Pulse 74; Resp 22; Temp 94.1(Ca); Pulse Ox 100% on ETT vent; me1 15:00 BP 95 / 73; Pulse 3; Resp 28; Pulse Ox 100% on ETT vent; me1 15:30 BP 82 / 57; Pulse 79; Resp 25; Temp 93.9(Ca); Pulse Ox 100% on ETT vent; me1 16:00 BP 79 / 60; Pulse 78; Resp 28; Pulse Ox 100% on ETT vent; me1 16:30 BP 80 / 65; Pulse 72; Resp 21; Temp 93.9(Ca); Pulse Ox 100% on ETT vent; me1 17:00 BP 91 / 73; Pulse 73; Resp 16; Temp 94.4(R); Pulse Ox 99% on ETT vent; me1 [place] Coma Score: 12:45 Eye Response: none(1). Modifying Factors: Intubated. Motor Response: none(1). Verbal me1 Response: none(1). Total: 3. ED Course: 12:33 Assisted provider with intubation using 8.0 mm ETT via oral route. ET tube secured at as6 23cm at the lips. Set up intubation tray. Intubated by Hayley Motley MD Placement verified by auscultating bilateral breath sounds, CXR, Patient tolerated well. Maintain EMS IV. Dressing intact. Good blood return noted. Site clean \T\ dry. Gauge \T\ site: 24g R hand. 12:40 NGT: inserted 12 Fr. other oral verified return of gastric contents, Patient tolerated as6 well. 12:44 Patient arrived in ED. as6 12:44 Arm band placed on left wrist. as6 12:45 Provided Education on: Educated sister on POC. Verbalized understanding. . Client me1 placed on continuous cardiac and pulse oximetry monitoring. NIBP monitoring applied. monitoring manager on. Pulse ox on. NIBP on. 12:45 Inserted saline lock: 18 gauge in right upper arm, using aseptic technique. By Simon Groves RN. 12:47 Hayley Motley MD is Attending Physician. sp3 12:50 Triage completed. as6 12:54 Danyell Stovall, YUSUF is Primary Nurse. me1 12:54 Mccauley cath inserted, using sterile technique, 16 Fr., by brimmer blocker, balloon inflated, to me1 gravity drainage. 13:01 Placed in gown. Bed in low position. Call light in reach. Side rails up X2. Client as6 placed on continuous cardiac and pulse oximetry monitoring. NIBP monitoring applied. monitoring manager on. 13:12 Chest Single View XRAY Sent. bp 13:13 Chest Single View XRAY In Process Unspecified. EDMS 13:19 Initial lab(s) drawn, by ED staff, sent to lab. EKG done, by ED staff, reviewed by la1 Hayley Motley MD. 14:02 spoke with Bhargav at the [facility] transfer center. bc6 14:26 doc to doc given with [facility]. bc6 15:[address] Alek Frank at [facility]. bc6 16:02 anette with [facility] given at eta of 20 minutes. bc6 17:38 Patient transferred, IV remains in place. me1 Administered Medications: 13:13 Drug: metroNIDAZOLE IVPB 500 mg 100 ml IVPB at 200 ml/hr once over 30 mins Volume: 100 bp ml; Route: IVPB; Rate: 200 ml/hr; Infused Over: 30 mins; Site: right jugular; 13:40 Follow up: Response: No adverse reaction; IV Status: Completed infusion; IV Intake: me1 100ml 13:13 Drug: NS 0.9% IV 1000 ml IV at 1 bolus Per protocol; 1000 mL bolus Route: IV; Rate: 1 bp bolus; Site: right jugular; 17:00 Follow up: Response: No adverse reaction; IV Status: Completed infusion; IV Intake: me1 1000ml 13:40 Drug: Piperacillin-Tazobactam IVPB 3.375 grams IVPB once over 60 mins; (mix in NS 100 me1 mL) Route: IVPB; Infused Over: 60 mins; Site: right jugular; 17:01 Follow up: Response: No adverse reaction; IV Status: Completed infusion [facility] [place] 15:51 Drug: Midazolam IVP or IV 4 mg IVP once Route: IVP; Site: right jugular; bp 17:01 Follow up: Response: No adverse reaction [facility] [place] 15:51 Drug: NS 0.9% IV 1000 ml IV at 1 bolus Per protocol; 1000 mL bolus Route: IV; Rate: 1 bp bolus; Site: right jugular; 17:00 Follow up: Response: No adverse reaction; IV Status: Completed infusion; IV Intake: me1 1000ml 17:20 Drug: NS 0.9% IV 1000 ml IV at 1 bolus Per protocol; 1000 mL bolus Route: IV; Rate: 1 me1 bolus; Site: right jugular; 17:37 Follow up: IV Status: Infusion continued upon transfer [facility] [place] 17:20 Drug: Midazolam IVP or IV 4 mg IVP once Route: IVP; Site: right jugular; me1 17:37 Follow up: Response: No adverse reaction me1 Medication: 13:01 VIS not applicable for this client. as6 Intake: 13:40 IV: 100ml; Total: 100ml. me1 17:00 IV: 1000ml; Total: 1100ml. me1 17:00 IV: 1000ml; Total: 2100ml. me1 Outcome: 13:43 ER care complete, transfer ordered by MD. julio 17:38 Transferred by ground EMS to [facility], Transfer form completed. me1 Note: Report called to YUSUF Andre 17:38 Condition: stable 17:38 Instructed on the need for transfer, 17:39 Patient left the ED. me1 Signatures: Dispatcher [employer] Simon Rodriguez, RN RN Hayley Raines MD MD sp3 Quincy Nayak RN RN as6 Maggy Walton 6 Danyell Stovall RN RN me1 Corrections: (The following items were deleted from the chart) 17:41 13:00 BP 105 / 78; Pulse 75bpm; Resp 20bpm; Pulse Ox 99% ET / Ventilator; me1 me1 17:41 13:30 BP 110 / 84; Pulse 73bpm; Resp 25bpm; Pulse Ox 97% ET / Ventilator; me1 me1 17:44 14:30 BP 104 / 80; Pulse 74bpm; Resp 22bpm; Pulse Ox 100% ET / Ventilator; me1 me1 17:44 15:30 BP 82 / 57; Pulse 79bpm; Resp 25bpm; Pulse Ox 100% ET / Ventilator; me1 me1 17:44 16:30 BP 80 / 65; Pulse 72bpm; Resp 21bpm; Pulse Ox 100% ET / Ventilator; me1 me1 17:44 17:00 BP 91 / 73; Pulse 73bpm; Resp 16bpm; Pulse Ox 99% ET / Ventilator; me1 me1 17:44 13:00 BP 105 / 78; Pulse 75bpm; Resp 20bpm; Pulse Ox 99% ET / Ventilator; Temp 95.8F me1 urinary bladder temp; me1
--- NOTE | 2024-03-20 13:44 | EDPHYS ---
Physician Documentation [facility] Name: Piter Iglesias Age: 58 yrs Sex: Male : 1965 Arrival Date: 03/20/2024 Time: 12:34 Bed 3 Private MD: ED Physician Hayley Motley HPI: 03/20 13:35 This 58 yrs old Black Male presents to ER via EMS with complaints of aspiration . sp3 13:35 58-year-old male with a history of Crohn's, diabetes, asthma presents via EMS for chief sp3 complaint aspiration during procedure. Patient was receiving epidural injections by pain management and during that process became altered and was not able to maintain his airway. Attempts were made by staff allegedly as reported by EMS for intubation at the procedure site. They were either unsuccessful or due to aspiration were not able to oxygenate and ventilate properly. EMS arrived and they state that they had just pulled the endotracheal tube from the mouth as they were getting there and a intubated themselves. They reported an end-tidal CO2 and oxygenation in the 90% range or higher with poor lung compliance tidal volumes. ROS, history and physical severely limited due to intubation.. Historical: - Allergies: 12:58 Nuts; as6 - PMHx: 12:58 elevated creatinine levels; Anxiety; Asthma; Crohn's Disease; depressive disorder; as6 diabetes mellitus; elevated liver enzymes; Hyperlipidemia; Hypertension; spinal stenosis; ulcerative colitis; - PSHx: 12:58 Cholecystectomy; intestinal Surgery; as6 - Immunization history:: Adult Immunizations not up to date. - Infectious Disease History:: Denies. - Social history:: Smoking status: unknown. ROS: 13:37 Unable to obtain ROS due to patient is on ventilator, sp3 Exam: 13:38 Constitutional: The patient appears Patient intubated with distended abdomen. Patient sp3 with no responsiveness from a neurological standpoint. 13:38 Unable to obtain exam due to patient being intubated, 13:39 ECG was reviewed by the Attending Physician. EKG demonstrates normal sinus rhythm at 75 sp3 bpm with normal intervals, normal QRS, normal axis, normal ST/T-segment without evidence of acute ischemia. Vital Signs: 12:44 BP 79 / 62; Pulse 85; Resp 18; Pulse Ox 100% on ETT vent; FiO2 100 %; as6 12:45 BP 101 / 75; Pulse 78; Resp 2; Pulse Ox 96% on ETT vent; me1 13:00 BP 105 / 78; Pulse 75; Resp 20; Temp 95.8(Ca); Pulse Ox 99% on ETT vent; me1 13:30 BP 110 / 84; Pulse 73; Resp 25; Temp 96(Ca); Pulse Ox 97% on ETT vent; me1 14:00 BP 112 / 81; Pulse 72; Resp 16; Pulse Ox 100% on ETT vent; me1 14:30 BP 104 / 80; Pulse 74; Resp 22; Temp 94.1(Ca); Pulse Ox 100% on ETT vent; me1 15:00 BP 95 / 73; Pulse 3; Resp 28; Pulse Ox 100% on ETT vent; me1 15:30 BP 82 / 57; Pulse 79; Resp 25; Temp 93.9(Ca); Pulse Ox 100% on ETT vent; me1 16:00 BP 79 / 60; Pulse 78; Resp 28; Pulse Ox 100% on ETT vent; me1 16:30 BP 80 / 65; Pulse 72; Resp 21; Temp 93.9(Ca); Pulse Ox 100% on ETT vent; me1 17:00 BP 91 / 73; Pulse 73; Resp 16; Temp 94.4(R); Pulse Ox 99% on ETT vent; me1 [place] Coma Score: 12:45 Eye Response: none(1). Modifying Factors: Intubated. Motor Response: none(1). Verbal me1 Response: none(1). Total: 3. MDM: 12:49 Patient medically screened. sp3 13:39 Data reviewed: vital signs, nurses notes, EMS record, old medical records, lab test sp3 result(s), EKG, radiologic studies. ED course: 58-year-old male with PMH above now intubated with poor lung compliance. Patient had emesis in the endotracheal tube and decided to reintubate using a MAC 4 blade 8.0 tube. Previous endotracheal tube removed and new endotracheal tube placed with good misting in the tube and end-tidal CO2. Orogastric tube also placed with confirmation. EJ catheter also placed on the right side. Patient has extensive emesis and aspiration with emesis coming from both esophagus and trachea on direct visualization using laryngoscope. Patient has poor lung compliance with tidal volumes in the 250 mL range with peak pressures at 45. We have adjusted rate to maximize minute volume. Blood gas demonstrates pH of 6.9 and pCO2 of 126 and a pO2 of 171. Chest x-ray demonstrates no findings however aspiration is recent. Zosyn and Flagyl have been started IV. Blood work pending. We will transfer patient to [facility] secondary to not having pulmonary critical care coverage at this facility. Total critical care time 35 minutes. Procedure intubation performed by me.. 03/20 12:48 Order name: Blood Culture Adult (2) sp3 03/20 12:48 Order name: CBC with Diff; Complete Time: 13:49 3 03/20 12:48 Order name: CMP; Complete Time: 13:49 sp3 03/20 12:48 Order name: Lactate w/ 2H reflex if indic.; Complete Time: 13:49 sp3 03/20 12:48 Order name: Protime (+inr); Complete Time: 13:49 sp3 03/20 12:48 Order name: ABG; Complete Time: 15:29 sp3 03/20 12:48 Order name: Troponin High Sensitivity; Complete Time: 13:49 sp3 03/20 14:30 Order name: ABG; Complete Time: 15:29 as6 03/20 12:48 Order name: Chest Single View XRAY; Complete Time: 13:19 sp3 03/20 12:48 Order name: EKG; Complete Time: 12:48 sp3 03/20 12:48 Order name: Accucheck; Complete Time: 13:12 sp3 03/20 12:48 Order name: Cardiac monitoring; Complete Time: 12:51 sp3 03/20 12:48 Order name: EKG - Nurse/Tech; Complete Time: 13:19 sp3 03/20 12:48 Order name: IV Saline Lock - Large Bore; Complete Time: 13:12 sp3 03/20 12:48 Order name: Labs collected and sent; Complete Time: 13:12 sp3 03/20 12:48 Order name: O2 Per Protocol; Complete Time: 12:51 sp3 03/20 12:48 Order name: O2 Sat Monitoring; Complete Time: 12:51 sp3 03/20 12:48 Order name: Vital Signs; Complete Time: 12:51 sp3 03/20 12:49 Order name: NG Tube; Complete Time: 12:51 sp3 Administered Medications: 13:13 Drug: metroNIDAZOLE IVPB 500 mg 100 ml IVPB at 200 ml/hr once over 30 mins Volume: 100 bp ml; Route: IVPB; Rate: 200 ml/hr; Infused Over: 30 mins; Site: right jugular; 13:40 Follow up: Response: No adverse reaction; IV Status: Completed infusion; IV Intake: me1 100ml 13:13 Drug: NS 0.9% IV 1000 ml IV at 1 bolus Per protocol; 1000 mL bolus Route: IV; Rate: 1 bp bolus; Site: right jugular; 17:00 Follow up: Response: No adverse reaction; IV Status: Completed infusion; IV Intake: me1 1000ml 13:40 Drug: Piperacillin-Tazobactam IVPB 3.375 grams IVPB once over 60 mins; (mix in NS 100 me1 mL) Route: IVPB; Infused Over: 60 mins; Site: right jugular; 17:01 Follow up: Response: No adverse reaction; IV Status: Completed infusion me1 15:51 Drug: Midazolam IVP or IV 4 mg IVP once Route: IVP; Site: right jugular; bp 17:01 Follow up: Response: No adverse reaction me1 15:51 Drug: NS 0.9% IV 1000 ml IV at 1 bolus Per protocol; 1000 mL bolus Route: IV; Rate: 1 bp bolus; Site: right jugular; 17:00 Follow up: Response: No adverse reaction; IV Status: Completed infusion; IV Intake: me1 1000ml 17:20 Drug: NS 0.9% IV 1000 ml IV at 1 bolus Per protocol; 1000 mL bolus Route: IV; Rate: 1 me1 bolus; Site: right jugular; 17:37 Follow up: IV Status: Infusion continued upon transfer me1 17:20 Drug: Midazolam IVP or IV 4 mg IVP once Route: IVP; Site: right jugular; me1 17:37 Follow up: Response: No adverse reaction me1 Disposition: 13:43 Critical Care:. sp3 Disposition Summary: 03/20/24 13:43 Transfer Ordered Notes: Transfer Location: [facility] sp3 Reason: Higher level of care sp3 Condition: Stable sp3 Problem: new sp3 Symptoms: have worsened sp3 Accepting Physician: ANJALI [facility](03/20/24 17:39) me1 Diagnosis - Aspiration, respiratory failure sp3 Forms: - Medication Reconciliation Form sp3 - SBAR form sp3 Critical care time excluding procedures: 13:43 Critical care time: Bedside Care: 15 minutes, Consultation: 15 minutes, Family sp3 Intervention: 5 minutes. Total time: 35 minutes Signatures: Dispatcher [employer] EDMS Simon Groves, RN RN bp Hayley Motley MD MD sp3 Quincy Nayak RN RN as6 Danyell Stovall RN RN me1 Corrections: (The following items were deleted from the chart) 12:48 12:48 BLOOD CULTURE*+BA.LAB.BRZ ordered. EDMS EDMS 12:48 12:48 CBC+H.LAB.BRZ ordered. EDMS EDMS 12:48 12:48 COMPREHENSIVE METABOLIC PANEL+C.LAB.BRZ ordered. EDMS EDMS 12:48 12:48 LACTATE+C.LAB.BRZ ordered. EDMS EDMS 12:48 12:48 PROTIME (+INR)+COAG.LAB.BRZ ordered. EDMS EDMS 12:48 12:48 Troponin High Sensitivity+C.LAB.BRZ ordered. EDMS EDMS 17:39 13:43 TBD [facility] sp3 me1
[2024-03-20 13:47] LABS: Albumin 3.6 g/dL (3.4-5.0); Albumin/Globulin Ratio 0.9 (1.1-1.8); Bilirubin Total 0.2 mg/dL (0.2-1.0); Globulin 3.8 g/dL (2.3-3.5); Protein, Total 7.4 g/dL (6.4-8.2); Troponin High Sensitivity 4.4 pg/mL (<58.9)
[2024-03-20 15:19] LABS: Blood O2 Saturation 96.3 % (92-98.5)
[2024-03-20 15:20] LABS: Blood Gas Oxyhemoglobin 94.4 % (94-97); Blood Gas THB 10.2 g/dl (12-18)
[2024-03-20 15:22] LABS: Blood Gas Oxyhemoglobin 95.5 % (94-97); Blood Gas THB 10.1 g/dl (12-18); Blood O2 Saturation 97.5 % (92-98.5)
[2024-03-20] MEDS ORDERED: MIDAZOLAM HCL 2 MG/2 ML INJ ONE ×2 (15:38→17:11)
[2024-03-20 18:57] VITALS: BP 91/73; O2SAT 99
--- NOTE | 2024-03-24 10:36 | EKG ---
Test Date: 2024-03-20 Test Time: 13:15:47 Copy Writer: MEASUREMENT RESULTS: Intervals: Rate: 75 CA: 164 QRSD: 70 QT: 400 QTc: 446 [place]: P: 78 CA: 164 QRS: 72 T: 43 INTERPRETIVE STATEMENTS: Normal sinus rhythm Septal infarct, age undetermined Abnormal ECG Compared to ECG 02/28/2024 03:23:04 Myocardial infarct finding now present Electronically Signed On 03-24-24 10:35:26 CDT by Aba Hernandez
== END 2024-03-20 17:39 | disposition short-term general hospital (02) ==
LOC: ER 12:34
DX: J96.90 Respiratory failure, unspecified, unspecified whether with hypoxia or hypercapnia (principal); Y84.4 Aspiration of fluid as the cause of abnormal reaction of the patient, or of later complication, without mention of misadventure at the time of the procedure; Z91.018 Allergy to other foods
CPT/HCPCS: 96365; 96367; 93005; 87040 ×2; 85025; 36415; 85610; 83605; 84484; 80053; 71045; 82805 ×2; 31500; 51702; 96375; 99291; 96366; 36600 ×2; 94002; J2543; J2250 ×2; J7030 ×3

== ENCOUNTER 2024-05-14 03:36 | Emergency (ER) | payer OTHER ==
[2024-05-14] MEDS ORDERED: LORazepam 2 MG/ML VIAL ONE (03:57)
[2024-05-14 04:17] LABS: Absolute Basophils 0.1 K/uL (0-0.5); Absolute Eosinophils 0.2 K/uL (0-0.5); Absolute Lymphocytes (CBC) 3.8 K/uL (0.7-4.9); Absolute Monocytes 0.9 K/uL (0.1-1.3); Absolute Neutrophil 4.3 K/uL (1.8-8.0); Basophils % 0.6 % (0-1.3); Eosinophils % 2.1 % (0-4.4); Lymphocytes % 40.8 % (15.3-44.8); MCH 27.4 pg (27.0-35.0); MCHC 32.4 g/dL (32.0-36.0); MCV 84.5 fL (80-100); MPV 6.8 fL (7.6-11.3); Monocytes % 9.9 % (3.3-12.3); Neutrophils % 46.6 % (41.7-73.7); Platelets 295 thou/uL (152-406); RBC Red Blood Cell Count 4.74 M/uL (4.33-5.43); Red Cell Distribution Width 25.3 % (12.1-15.2)
[2024-05-14 04:32] LABS: ALT/SGPT 25 U/L (16-61); Alkaline Phosphatase 99 U/L (45-117); Anion Gap 11.6 mEq/L (5.0-15.0); BUN Blood Urea Nitrogen 11 mg/dL (7-18); Bicarbonate 20 mEq/L (21-32); Bilirubin Total 0.4 mg/dL (0.2-1.0); Globulin 4.2 g/dL (2.3-3.5); Glomerular Filtration Rate 81 ml/min (=/>90); Glucose Level 155 mg/dL (74-106); Protein, Total 8.2 g/dL (6.4-8.2); Sodium Level 135 mEq/L (136-145); Troponin High Sensitivity 3.5 pg/mL (<58.9)
[2024-05-14 04:33] LABS: AST/SGOT 16 U/L (15-37); Bilirubin Direct < 0.2 mg/dL (0-0.2); Bilirubin Indirect, Calculated 0.2 mg/dL (0.2-0.8); Magnesium 1.5 mg/dL (1.6-2.4); Potassium 3.6 mEq/L (3.5-5.1)
[2024-05-14 04:49] LABS: Band Neutrophils 4 % (0-1); Differential Total Cells Count 100; Eosinophils 1 % (0-3); Lymphocytes 47 % (15-42); Monocytes 7 % (0-10); Segmented Neutrophils 41 % (40-80)
[2024-05-14 04:50] LABS: Anisocytosis 2+; Blood Morphology Comment NOTED (NOT SEEN); Microcytosis 1+; Platelet Estimate ADEQ
--- NOTE | 2024-05-14 05:40 | EDPHYS ---
Physician Documentation [facility] Name: Piter Iglesias Age: 58 yrs Sex: Male : 1965 Arrival Date: 05/14/2024 Time: 03:36 Bed 13 Private MD: ED Physician Thomas Smith HPI: 05/14 04:03 This 58 yrs old Black Male presents to ER via Unassigned with complaints of Foreign rt body sensation to throat. 04:03 Patient presents to the ED with foreign body sensation to the throat. The patient rt states that he was drinking from a straw, when he felt something in the throat. Believe that something is caught in the throat at the level of the neck. Denies other acute complaints at this time, symptoms are moderate in severity, no other aggravating or alleviating factors.. Historical: - Allergies: 04:23 Nuts; jb4 - PMHx: 04:23 elevated creatinine levels; Anxiety; Asthma; Crohn's Disease; depressive disorder; jb4 diabetes mellitus; elevated liver enzymes; Hyperlipidemia; Hypertension; spinal stenosis; ulcerative colitis; - PSHx: 04:23 Cholecystectomy; intestinal Surgery; jb4 - Immunization history:: Adult Immunizations up to date. - Infectious Disease History:: Denies. - Family history:: not pertinent. - Social history:: Smoking status: Patient denies any tobacco usage or history of. ROS: 04:03 Constitutional: Negative for fever, chills, and weight loss, Cardiovascular: Negative rt for chest pain, palpitations, and edema, Abdomen/GI: Negative for abdominal pain, nausea, vomiting, diarrhea, and constipation, MS/Extremity: Negative for injury and deformity, Skin: Negative for injury, rash, and discoloration, 04:03 Neck: Positive for Sore throat, foreign body sensation, 04:03 Respiratory: Positive for shortness of breath, Negative for cough, Exam: 04:03 Constitutional: This is a well developed, well nourished patient who is awake, alert, rt and in no acute distress. Head/Face: Normocephalic, atraumatic. Chest/axilla: Normal chest wall appearance and motion. Nontender with no deformity. No lesions are appreciated. Cardiovascular: Regular rate and rhythm with a normal S1 and S2. No gallops, murmurs, or rubs. Normal PMI, no JVD. No pulse deficits. Respiratory: Lungs have equal breath sounds bilaterally, clear to auscultation and percussion. No rales, rhonchi or wheezes noted. No increased work of breathing, no retractions or nasal flaring. Abdomen/GI: Soft, non-tender, with normal bowel sounds. No distension or tympany. No guarding or rebound. No evidence of tenderness throughout. Skin: Warm, dry with normal turgor. Normal color with no rashes, no lesions, and no evidence of cellulitis. MS/ Extremity: Pulses equal, no cyanosis. Neurovascular intact. Full, normal range of motion. 04:03 ENT: Posterior pharyngeal erythema, no oropharyngeal edema, no foreign bodies identified. 04:03 ECG was reviewed by the Attending Physician. Vital Signs: 04:18 BP 159 / 118; Pulse 100; Resp 16; Temp 98.2(O); Pulse Ox 100% ; jb4 04:25 BP 125 / 101; Pulse 101; Resp 18; Pulse Ox 100% on 2 lpm NC; jb4 06:00 BP 120 / 96; Pulse 92; Resp 16; Pulse Ox 99% on R/A; jb4 MDM: 03:39 Patient medically screened. rt 05:48 Differential Diagnosis Foreign body, pharyngitis, RPA, [employer], panic attack. Data rt reviewed: vital signs, nurses notes, lab test result(s), radiologic studies. I considered the following discharge prescriptions or medication management in the emergency department Medications were administered in the Emergency Department. See MAR. Independent interpretation of the following test(s) in the Emergency Department CT Scan: My interpretation is No abscess seen on interpretation of CT scan images. Care significantly affected by the following chronic conditions: Crohn's disease. Counseling: I had a detailed discussion with the patient and/or guardian regarding the historical points, exam findings, and any diagnostic results supporting the discharge/admit diagnosis, lab results, radiology results, the need for outpatient follow up, to return to the emergency department if symptoms worsen or persist or if there are any questions or concerns that arise at home. Response to treatment: the patient's symptoms have resolved after treatment. 05/14 03:40 Order name: Basic Metabolic Panel; Complete Time: 05:33 rt 05/14 03:40 Order name: CBC with Diff; Complete Time: 05:33 rt 05/14 03:40 Order name: LFT's; Complete Time: 05:33 rt 05/14 03:40 Order name: Magnesium; Complete Time: 05:33 rt 05/14 03:40 Order name: Troponin HS; Complete Time: 05:33 rt 05/14 03:40 Order name: Strep rt 05/14 04:23 Order name: Manual Differential; Complete Time: 05:33 EDMS 05/14 04:29 Order name: Throat Culture EDMS 05/14 03:40 Order name: CT Soft Tissue Neck W/contr rt 05/14 03:40 Order name: XRAY Chest (1 view) rt 05/14 03:40 Order name: Cardiac monitoring; Complete Time: 04:14 rt 05/14 03:40 Order name: EKG - Nurse/Tech; Complete Time: 04:14 rt 05/14 03:40 Order name: IV Saline Lock; Complete Time: 04:13 rt 05/14 03:40 Order name: Labs collected and sent; Complete Time: 04:13 rt 05/14 03:40 Order name: O2 Per Protocol; Complete Time: 04:12 rt 05/14 03:40 Order name: O2 Sat Monitoring; Complete Time: 04:12 rt EC:03 Rate is 95 beats/min. Rhythm is regular, Normal Sinus Rhythm with No ectopy. QRS [place] rt is Normal. SD interval is normal. QRS interval is normal. QT interval is normal. No Q waves. Administered Medications: 04:00 Drug: Ativan IVP 2 mg IVP once Route: IVP; Site: left hand; jb4 04:30 Follow up: Response: No adverse reaction; Marked relief of symptoms jb4 Disposition Summary: 05/14/24 05:39 Discharge Ordered Notes: Location: Home rt Problem: new rt Symptoms: have improved rt Condition: Stable rt Diagnosis - Sore throat rt - Panic attack rt Followup: rt - With: Private Physician - When: 2 - 3 days - Reason: Discharge Instructions: - Discharge Summary Sheet rt - Panic Attack rt - Sore Throat rt Forms: - Medication Reconciliation Form rt - Antibiotic Education rt - Prescription Opioid Use rt - Patient Portal Instructions rt - Leadership Thank You Letter rt Signatures: Dispatcher [employer] Shiv Galvan RN RN jb4 Thomas Smith MD MD rt Corrections: (The following items were deleted from the chart) 03:41 03:41 BASIC METABOLIC PANEL+C.LAB.BRZ ordered. EDMS EDMS 03:41 03:41 CBC+H.LAB.BRZ ordered. EDMS EDMS 03:41 03:41 HEPATIC FUNCTION+C.LAB.BRZ ordered. EDMS EDMS 03:41 03:41 MAGNESIUM+C.LAB.BRZ ordered. EDMS EDMS 03:41 03:41 Troponin High Sensitivity+C.LAB.BRZ ordered. EDMS EDMS 03:41 03:41 Group A Streptococcus Rapid Sc+BA.LAB.BRZ ordered. EDMS EDMS
--- NOTE | 2024-05-14 05:40 | ER ---
Nurse's Notes [facility] Name: Piter Iglesias Age: 58 yrs Sex: Male : 1965 Arrival Date: 05/14/2024 Time: 03:36 Bed 13 Private MD: Diagnosis: Sore throat;Panic attack Presentation: 05/14 04:18 Chief complaint: Patient states: I was drinking through a straw I cut and eating ice jb4 and I think something is stuck in my throat. Coronavirus screen: At this time, the client does not indicate any symptoms associated with coronavirus-19. Ebola Screen: No symptoms or risks identified at this time. Initial Sepsis Screen: Does the patient meet any 2 criteria? HR > 90 bpm. Yes Does the patient have a suspected source of infection? No. Patient's initial sepsis screen is negative. Risk Assessment: Do you want to hurt yourself or someone else? Patient reports no desire to harm self or others. Onset of symptoms was May 14, 2024. Transition of care: patient was not received from another setting of care. 04:18 Method Of Arrival: EMS: [facility] jb4 04:18 Acuity: AISHA 3 jb4 Historical: - Allergies: 04:23 Nuts; jb4 - PMHx: 04:23 elevated creatinine levels; Anxiety; Asthma; Crohn's Disease; depressive disorder; jb4 diabetes mellitus; elevated liver enzymes; Hyperlipidemia; Hypertension; spinal stenosis; ulcerative colitis; - PSHx: 04:23 Cholecystectomy; intestinal Surgery; jb4 - Immunization history:: Adult Immunizations up to date. - Infectious Disease History:: Denies. - Family history:: not pertinent. - Social history:: Smoking status: Patient denies any tobacco usage or history of. Screenin:00 [facility] ED Fall Risk Assessment (Adult) History of falling in the last 3 months, jb4 including since admission No falls in past 3 months (0 pts) Confusion or Disorientation No (0 pts) Intoxicated or Sedated No (0 pts) Impaired Gait No (0 pts) Mobility Assist Device Used No (0 pt) Altered Elimination No (0 pt) Score/Fall Risk Level 0 - 2 = Low Risk Oriented to surroundings, Maintained a safe environment. Abuse screen: Denies threats or abuse. Nutritional screening: No deficits noted. Tuberculosis screening: No symptoms or risk factors identified. Assessment: 04:25 General: Appears in no apparent distress. uncomfortable, Behavior is calm, anxious. jb4 Pain: Complains of pain in neck Pain does not radiate. Pain currently is 7 out of 10 on a pain scale. Quality of pain is described as burning. Neuro: Level of Consciousness is awake, alert, obeys commands, Oriented to person, place, time, situation. Cardiovascular: Patient's skin is warm and dry. Respiratory: Airway is patent Respiratory effort is even, unlabored, Respiratory pattern is regular, symmetrical. GI: No signs and/or symptoms were reported involving the gastrointestinal system. EENT: No signs and/or symptoms were reported regarding the EENT system. Derm: Skin is intact, Skin is pink, warm \T\ dry. 06:00 Reassessment: Patient appears in no apparent distress at this time. Patient and/or jb4 family updated on plan of care and expected duration. Pain level reassessed. Patient is alert, oriented x 3, equal unlabored respirations, skin warm/dry/pink. Patient states feeling better. Patient states symptoms have improved. Vital Signs: 04:18 BP 159 / 118; Pulse 100; Resp 16; Temp 98.2(O); Pulse Ox 100% ; jb4 04:25 BP 125 / 101; Pulse 101; Resp 18; Pulse Ox 100% on 2 lpm NC; jb4 06:00 BP 120 / 96; Pulse 92; Resp 16; Pulse Ox 99% on R/A; jb4 ED Course: 03:38 Patient arrived in ED. kmf 03:39 Thomas Smith MD is Attending Physician. rt 03:58 EKG done, by ED staff, reviewed by Thomas Smith MD. oe 04:00 Maintain EMS IV. Dressing intact. Good blood return noted. Site clean \T\ dry. Gauge \T\ mara 4 site: 22g LH. Flushed with 10 mL NS. 04:16 Shiv Benedict, RN is Primary Nurse. jb4 04:19 Triage completed. jb4 04:23 Arm band placed on right wrist. jb4 04:31 XRAY Chest (1 view) In Process Unspecified. EDMS 05:00 CT Soft Tissue Neck W/contr In Process Unspecified. EDMS 06:00 No provider procedures requiring assistance completed. IV discontinued, intact, jb4 bleeding controlled, No redness/swelling at site. Pressure dressing applied. 06:00 Patient has correct armband on for positive identification. Bed in low position. Call jb4 light in reach. Side rails up X 1. Provided Education on: discharge instructions.. Administered Medications: 04:00 Drug: Ativan IVP 2 mg IVP once Route: IVP; Site: left hand; jb4 04:30 Follow up: Response: No adverse reaction; Marked relief of symptoms jb4 Medication: 06:00 VIS not applicable for this client. jb4 Outcome: 05:39 Discharge ordered by . rt 06:00 Discharged to home with family, mara 06:00 Condition: stable 06:00 Discharge instructions given to patient, Instructed on discharge instructions, follow up and referral plans. Demonstrated understanding of instructions, follow-up care, 06:07 Patient left the ED. jb4 Signatures: Dispatcher [employer] Shiv Galvan, RN RN jb4 Gustabo Woods Ryan, MD MD rt Ivelisse Suazo [facility]
[2024-05-14 06:26] VITALS: TEMP 98.2; O2SAT 100
[2024-05-14 06:27] VITALS: BP 125/101
--- NOTE | 2024-05-14 12:38 | EKG ---
Test Date: 2024-05-14 Test Time: 03:51:39 Event Organizer: NATTY MEASUREMENT RESULTS: Intervals: Rate: 95 CT: 144 QRSD: 60 QT: 358 QTc: 449 [place]: P: 49 CT: 144 QRS: -1 T: 0 INTERPRETIVE STATEMENTS: Normal sinus rhythm Nonspecific ST abnormality Abnormal ECG Compared to ECG 03/20/2024 13:15:47 ST (T wave) deviation now present Myocardial infarct finding no longer present Electronically Signed On 05-14-24 12:37:36 CDT by Aba Hernandez
--- NOTE | 2024-05-15 08:37 | RAD REPORT ---
EXAM DESCRIPTION: CT - Soft Tissue Neck W/Contr - 05/14/2024 6:53 am CLINICAL HISTORY: Male, 58 years old, FORIEGN BODY COMPARISON: None available TECHNIQUE: CT acquisition of the neck following the administration of IV contrast. Coronal and sagit angélica reformatted images provided. This exam was performed according to departmental dose-optimization program which includes automated exposure control, adjustment of the mA and/or kV according to patien t size, and/or use of iterative reconstruction technique. FINDINGS: The exam is limited by patient motion artifact. Aerodigestive tract: No visualized foreign body. Mild asymmetry of the posterior oropharynx due to as ymmetric prominence of the right lingual tonsils without significant enhancement or fluid collection, likely reactive. Soft tissues: No retropharyngeal fluid. Superficial soft tissues are unremarkable. Salivary glands: Parotid and submandibular glands are normal. Oral cavity: The majority of dentition is absent. Sinuses/Mastoids: No significant disease. Lymph nodes: No lymphadenopathy. Thyroid: Unremarkable. Vascular: Unremarkable. Brain: Imaged intracranial structures are normal. Bones: No acute findings. Multilevel cervical spondylosis. Upper chest: No acute findings. Scarring/atelectasis in the left upper lobe. IMPRESSION: No evidence of foreign body or acute finding of the neck. Electronically signed by: Robbi Lima MD 05/14/2024 05:29 AM CDT Due to temporary technical issues with the PACS/Fluency reporting system, reports are being signed by the in house radiologist without review as a courtesy to ensure prompt reporting. The interpreting r adiologist is fully responsible for the content of the report.
--- NOTE | 2024-05-15 08:38 | RAD REPORT ---
EXAM DESCRIPTION: RAD - Chest Single View - 05/14/2024 6:00 am CLINICAL HISTORY: Male, 58 years old, COUGH TECHNIQUE: 1 view COMPARISON: None available. FINDINGS: SUPPORT DEVICES: Overlying leads. LUNGS/PLEURA: No consolidation, pleural effusion, or pneumothorax. Left suprahilar calcified granulom a. HEART/MEDIASTINUM: Normal size and configuration. Left hilar lymph node calcifications. OTHER: No acute osseous findings. Healed left mid clavicle deformity. Advanced degenerative change of the shoulders. IMPRESSION: No acute cardiopulmonary findings. Electronically signed by: Robbi Lima MD 05/14/2024 04:48 AM CDT RP Due to temporary technical issues with the PACS/Fluency reporting system, reports are being signed by the in house radiologist without review as a courtesy to ensure prompt reporting. The interpreting r adiologist is fully responsible for the content of the report.
== END 2024-05-14 06:07 | disposition home or self-care (01) ==
LOC: ER 03:36
DX: J02.9 Acute pharyngitis, unspecified (principal); F41.0 Panic disorder [episodic paroxysmal anxiety]
CPT/HCPCS: 93005; 87070; 85025; 80048; 36415; 83735; 80076; 87081; 84484; 70491; 71045; Q9967; 96374; 99284

== ENCOUNTER 2024-05-14 10:55 | Emergency (ER) | payer OTHER ==
--- NOTE | 2024-05-14 12:25 | RAD REPORT ---
EXAM DESCRIPTION: CT - Soft Tissue Neck W/Contr CLINICAL HISTORY: PAIN COMPARISON: Soft Tissue Neck W/Contr dated 05/14/2024; Head C Spine Mpr Wo Con dated 03/18/2016 TECHNIQUE: Thin axial CT images of the neck, performed following intravenous administration of 100 mL Isovue-300. Multiplanar reformats were generated and reviewed. All CT scans are performed using dose optimization technique as appropriate and may include automated exposure control or mA/KV adjustment according to patient size. FINDINGS: Nasopharyngeal tissues are normal in appearance. Fossa Rosenmller are normal. Parapharyngeal fat triangles are symmetric. Tongue base structures are normal, with mild asymmetric p rominence of the right lingual tonsil again seen. Epiglottis and aryepiglottic folds are normal. Asymmetry along the left posterior pharyngeal wall, wi th asymmetric effacement of the left vallecula and left pyriform sinus, favored to relate to morpholo gic variation, where the left cornu of the hyoid bone is asymmetrically directed more medially and th e left thyroid cartilage cornua is asymmetrically directed more medially and anteriorly, with a small interposed ossicle between the 2 structures. This appearance is stable. The vocal cords are normal in appearance. No suspicious adenopathy. Salivary glands are normal in appearance. Upper lung smith are clear. Included intracranial contents are unremarkable. IMPRESSION: No acute abnormality. No suspicious mucosal mass or adenopathy. Stable findings as above .
--- NOTE | 2024-05-14 12:28 | RAD REPORT ---
EXAM DESCRIPTION: CT - Thorax W/ Con - 05/14/2024 12:01 pm CLINICAL HISTORY: Chest pain;Dyspnea COMPARISON: Soft Tissue Neck W/Contr dated 05/14/2024; Soft Tissue Neck W/Contr dated 05/14/2024 TECHNIQUE: Axial thin cut images of the chest were obtained following intravenous administration of 100 mL Isovue-300. Multiplanar reformats were generated and reviewed. All CT scans are performed using dose optimization technique as appropriate and may include automated exposure control or mA/KV adjustment according to patient size. FINDINGS: Diffuse bilateral micro nodularity and tree-in-bud opacification, somewhat sparing the sub pleural lungs. No focal mass or infiltrate in the lung parenchyma. No pleural thickening or pleural e ffusion. No pneumothorax. No abnormal mediastinal or hilar masses or lymphadenopathy seen. Left hilar calcified 2 cm lymph node , may represent sequelae of remote granulomatous infection No significant aortic or pulmonary artery findings. Assessment is limited in the absence of IV contrast. No chest wall mass or abnormal axillary lymphadenopathy. Evaluation of the solid abdominal structures reveals no suspicious findings. Status post cholecystect charly. IMPRESSION: Diffuse bilateral micro nodularity and tree-in-bud opacities with subpleural sparing, echols ggesting an infectious or inflammatory process such as an upper airway infection or bronchiolitis.
--- NOTE | 2024-05-14 12:32 | ER ---
Nurse's Notes [facility] Name: Piter Iglesias Age: 58 yrs Sex: Male : 1965 Arrival Date: 05/14/2024 Time: 10:55 Bed 3 Private MD: Diagnosis: Pneumonia due to other specified bacteria Presentation: 05/14 10:57 Chief complaint: Patient states: was seen here and discharged this morning , was iw waiting at bus stop and started having difficulty breathing. 11:06 Coronavirus screen: At this time, the client does not indicate any symptoms associated iw with coronavirus-19. Risk Assessment: Do you want to hurt yourself or someone else? Patient reports no desire to harm self or others. 11:06 Acuity: AISHA 3 iw 11:06 Method Of Arrival: EMS: [facility] iw 11:06 Ebola Screen: No symptoms or risks identified at this time. Initial Sepsis Screen: Does iw the patient meet any 2 criteria? RR > 20 per min. Does the patient have a suspected source of infection? No. Patient's initial sepsis screen is negative. Onset of symptoms was May 14, 2024. Historical: - Allergies: 11:07 Nuts; iw - PMHx: 11:07 elevated creatinine levels; Anxiety; Asthma; Crohn's Disease; depressive disorder; iw diabetes mellitus; elevated liver enzymes; Hyperlipidemia; Hypertension; spinal stenosis; ulcerative colitis; - PSHx: 11:07 Cholecystectomy; intestinal Surgery; iw - Immunization history:: Adult Immunizations unknown. - Infectious Disease History:: Denies. - Social history:: Smoking status: unknown. Screenin:40 [facility] ED Fall Risk Assessment (Adult) History of falling in the last 3 months, ph including since admission No falls in past 3 months (0 pts) Confusion or Disorientation No (0 pts) Intoxicated or Sedated No (0 pts) Impaired Gait No (0 pts) Mobility Assist Device Used No (0 pt) Altered Elimination No (0 pt) Score/Fall Risk Level 0 - 2 = Low Risk Oriented to surroundings, Maintained a safe environment, Hourly rounding (assess needs \T\ fall precautionary measures) done. Abuse screen: Denies threats or abuse. Denies injuries from another. Nutritional screening: No deficits noted. Tuberculosis screening: No symptoms or risk factors identified. Assessment: 11:36 Reassessment: When this nurse entered room pt appeared to be quietly sleeping w/ stable ph VS, Spo2 100% and HR 90, when I awakened pt to explain that I was going to start an IV pt began breathing rapidly and groaning c/o difficulty breathing, VS remained stable w/ Spo2 100% RA. General: Appears in no apparent distress. Behavior is anxious, fussy. Pain: Complains of pain in in throat. Neuro: Level of Consciousness is obeys commands, lethargic, Oriented to person, place, situation. Cardiovascular: Capillary refill < 3 seconds in bilateral fingers Patient's skin is warm and dry. Respiratory: Reports shortness of breath at rest Airway is patent Respiratory effort is even, unlabored, Respiratory pattern is regular, symmetrical, Breath sounds are clear bilaterally. EENT: Throat is clear. Musculoskeletal: Circulation, motion, and sensation intact. Range of motion: intact in all extremities. 12:32 Reassessment: Patient appears in no apparent distress at this time. Patient and/or ph family updated on plan of care and expected duration. Pain level reassessed. Pt asleep w/ equal, unlabored respirations. 13:06 Reassessment: No changes from previously documented assessment. tm6 13:06 Cardiovascular: Rhythm is. tm6 Vital Signs: 11:06 BP 113 / 81; Pulse 103; Resp 24 S; Temp 98; Pulse Ox 100% on R/A; iw 11:41 BP 107 / 81; Pulse 92; Resp 16; Pulse Ox 99% on R/A; ph 12:32 BP 123 / 86; Pulse 94; Resp 16; Pulse Ox 99% on R/A; ph 13:06 BP 128 / 84; Pulse 97; Resp 19; Temp 98; Pulse Ox 100% on R/A; Pain 0/10; tm6 13:06 Pain Scale: Adult tm6 Jacinto Coma Score: 11:41 Eye Response: to voice(3). Motor Response: obeys commands(6). Verbal Response: ph oriented(5). Total: 14. ED Course: 10:57 Patient arrived in ED. iw 11:00 Hayley Motley MD is Attending Physician. sp3 11:07 Triage completed. iw 11:07 Arm band placed on. iw 11:17 Rhonda Gentile RN is Primary Nurse. ph 11:40 Inserted saline lock: 20 gauge in left antecubital area, using aseptic technique. ph Flushed with 10 mL NS. 11:42 Patient has correct armband on for positive identification. Bed in low position. Call ph light in reach. Side rails up X 1. Pulse ox on. NIBP on. Door closed. Noise minimized. Warm blanket given. 12:02 CT Soft Tissue Neck W/contr In Process Unspecified. EDMS 12:02 CT Chest W/ Con In Process Unspecified. EDMS 12:33 No provider procedures requiring assistance completed. ph 13:00 IV discontinued, intact, bleeding controlled, No redness/swelling at site. Pressure tm6 dressing applied. 13:07 Provided Education on: use of antibiotics. tm6 Administered Medications: 11:35 Drug: NS 0.9% IV 1000 ml IV at 1 bolus Per protocol; 1000 mL bolus Route: IV; Rate: 1 ph bolus; Site: left antecubital; 13:00 Follow up: Response: No adverse reaction; IV Status: Completed infusion; IV Intake: tm6 1000ml Medication: 11:42 VIS not applicable for this client. ph Intake: 13:00 IV: 1000ml; Total: 1000ml. tm6 Outcome: 12:31 Discharge ordered by . sp3 13:06 Discharged to home via wheelchair, tm6 13:06 Condition: stable 13:06 Discharge instructions given to patient, Instructed on discharge instructions, follow up and referral plans. medication usage, Demonstrated understanding of instructions, follow-up care, medications, Prescriptions given X 1, 13:07 Patient left the ED. tm6 Signatures: Dispatcher [employer] Cely Mcmillan RN RN iw Hall, Patricia, RN RN ph Patel, Setul, MD MD sp3 Masterson, Tawney, RN RN tm6 Corrections: (The following items were deleted from the chart) 11:10 11:06 Method Of Arrival: Wheelchair iw
--- NOTE | 2024-05-14 12:32 | EDPHYS ---
Physician Documentation [facility] Name: Piter Iglesias Age: 58 yrs Sex: Male : 1965 Arrival Date: 05/14/2024 Time: 10:55 Bed 3 Private MD: ED Physician Hayley Motley HPI: 05/14 11:51 This 58 yrs old Black Male presents to ER via EMS with complaints of Breathing sp3 Difficulty. 11:51 58-year-old male with history of Crohn's disease, asthma, chronic back pain, diabetes sp3 seen by me over the last few months for aspiration pneumonia requiring intubation and transfer now presents with chief complaint sore throat. Patient was seen at the early hours of this morning by night physician and discharged at 6 AM. Patient returns for similar symptoms of continued sore throat and chest pain. Workup a few hours ago was negative for any significant findings. Lab work was reviewed. Mild bandemia was present at 4. Patient states he was waiting at the bus stop and the pain just got worse and he returned.. Historical: - Allergies: 11:07 Nuts; iw - PMHx: 11:07 elevated creatinine levels; Anxiety; Asthma; Crohn's Disease; depressive disorder; iw diabetes mellitus; elevated liver enzymes; Hyperlipidemia; Hypertension; spinal stenosis; ulcerative colitis; - PSHx: 11:07 Cholecystectomy; intestinal Surgery; iw - Immunization history:: Adult Immunizations unknown. - Infectious Disease History:: Denies. - Social history:: Smoking status: unknown. ROS: 11:53 Constitutional: Negative for fever, chills, and weight loss, ENT: Negative for injury, sp3 pain, and discharge, Respiratory: Negative for shortness of breath, cough, wheezing, and pleuritic chest pain, Abdomen/GI: Negative for abdominal pain, nausea, vomiting, diarrhea, and constipation, Back: Negative for injury and pain, MS/Extremity: Negative for injury and deformity, Skin: Negative for injury, rash, and discoloration, Neuro: Negative for headache, weakness, numbness, tingling, and seizure, Psych: Negative for depression, anxiety, suicide ideation, homicidal ideation, and hallucinations, Allergy/Immunology: Negative for hives, rash, and allergies, Endocrine: Negative for neck swelling, polydipsia, polyuria, polyphagia, and marked weight changes, 11:53 All other systems are negative, Exam: 11:53 Constitutional: This is a well developed, well nourished patient who is awake, alert, sp3 and in no acute distress. Head/Face: Normocephalic, atraumatic. Eyes: Pupils equal round and reactive to light, extra-ocular motions intact. Lids and lashes normal. Conjunctiva and sclera are non-icteric and not injected. Cornea within normal limits. Periorbital areas with no swelling, redness, or edema. Chest/axilla: Normal chest wall appearance and motion. Nontender with no deformity. No lesions are appreciated. Cardiovascular: Regular rate and rhythm with a normal S1 and S2. No gallops, murmurs, or rubs. Normal PMI, no JVD. No pulse deficits. Respiratory: Lungs have equal breath sounds bilaterally, clear to auscultation and percussion. No rales, rhonchi or wheezes noted. No increased work of breathing, no retractions or nasal flaring. Abdomen/GI: Soft, non-tender, with normal bowel sounds. No distension or tympany. No guarding or rebound. No evidence of tenderness throughout. Back: No spinal tenderness. No costovertebral tenderness. Full range of motion. Skin: Warm, dry with normal turgor. Normal color with no rashes, no lesions, and no evidence of cellulitis. MS/ Extremity: Pulses equal, no cyanosis. Neurovascular intact. Full, normal range of motion. Neuro: Awake and alert, GCS 15, oriented to person, place, time, and situation. Cranial nerves II-XII grossly intact. Motor strength 5/5 in all extremities. Sensory grossly intact. Cerebellar exam normal. Normal gait. Psych: Awake, alert, with orientation to person, place and time. Behavior, mood, and affect are within normal limits. 11:53 Neck: Mild pain to palpation on the neck however no swelling or lymphadenopathy noted. Posterior oropharynx is normal with no erythema, uvular shift or peritonsillar swelling., Vital Signs: 11:06 BP 113 / 81; Pulse 103; Resp 24 S; Temp 98; Pulse Ox 100% on R/A; iw 11:41 BP 107 / 81; Pulse 92; Resp 16; Pulse Ox 99% on R/A; ph 12:32 BP 123 / 86; Pulse 94; Resp 16; Pulse Ox 99% on R/A; ph 13:06 BP 128 / 84; Pulse 97; Resp 19; Temp 98; Pulse Ox 100% on R/A; Pain 0/10; tm6 13:06 Pain Scale: Adult tm6 [place] Coma Score: 11:41 Eye Response: to voice(3). Motor Response: obeys commands(6). Verbal Response: ph oriented(5). Total: 14. MDM: 11:02 Patient medically screened. sp3 11:54 Data reviewed: vital signs, nurses notes, old medical records, lab test result(s), sp3 radiologic studies. ED course: 58-year-old male with PMH above just discharged from this facility several hours ago and now presents with recurrent symptoms. Will add on CT scan of the neck and chest to evaluate coupled with earlier workup to fully evaluate the patient. Vital signs are currently normal. If workup is negative we will safely discharge him home. Differential diagnosis includes pharyngitis, retropharyngeal abscess, peritonsillar abscess, other chest pathology. I am not highly concerned about these items though they do warrant evaluation. Patient is otherwise stable.. 12:30 ED course: CT scan of the neck is normal. CT scan of the chest demonstrates infectious sp3 etiology coupled with his earlier CBC we will go ahead and treat with antibiotics outpatient. We will discharge on Levaquin p.o. and patient can follow-up with his doctor. Vital signs remain normal the patient is sleeping resting comfortably in no acute distress.. 05/14 11:12 Order name: CT Soft Tissue Neck W/contr; Complete Time: 12:30 sp3 05/14 11:12 Order name: CT Chest W/ Con; Complete Time: 12:30 sp3 05/14 11:12 Order name: IV Saline Lock; Complete Time: 11:35 sp3 Administered Medications: 11:35 Drug: NS 0.9% IV 1000 ml IV at 1 bolus Per protocol; 1000 mL bolus Route: IV; Rate: 1 ph bolus; Site: left antecubital; 13:00 Follow up: Response: No adverse reaction; IV Status: Completed infusion; IV Intake: tm6 1000ml Disposition Summary: 05/14/24 12:31 Discharge Ordered Notes: Location: Home sp3 Condition: Stable sp3 Diagnosis - Pneumonia due to other specified bacteria sp3 Followup: sp3 - With: Private Physician - When: Upon discharge from the Emergency Department - Reason: Continuance of care Discharge Instructions: - Discharge Summary Sheet sp3 - Community-Acquired Pneumonia, Adult sp3 Forms: - Medication Reconciliation Form sp3 - Antibiotic Education sp3 - Prescription Opioid Use sp3 - Patient Portal Instructions sp3 - Leadership Thank You Letter sp3 Prescriptions: - levofloxacin 500 mg Oral tablet - take 1 tablet ORAL route once daily for 7 days; 7 tablet; Refills: 0, Product sp3 Selection Permitted Signatures: Dispatcher [employer] EDCely Aldana, RN RN Rhonda Gentile RN RN Hayley Motley MD MD sp3 FlasherEstuardo RN tm6 Corrections: (The following items were deleted from the chart) 11:12 11:12 Soft Tissue Neck W/Contr+CT.RAD.BRZ ordered. EDMS EDMS 11:12 11:12 Thorax W/ Con+CT.RAD.BRZ ordered. EDMS EDMS
[2024-05-14 13:12] VITALS: TEMP 98
[2024-05-14 13:17] VITALS: BP 128/84; O2SAT 100
== END 2024-05-14 13:07 | disposition home or self-care (01) ==
LOC: ER 10:55
DX: J15.8 Pneumonia due to other specified bacteria (principal); I10 Essential (primary) hypertension; E11.9 Type 2 diabetes mellitus without complications
CPT/HCPCS: 71260; 70491; Q9967; 96360; 99284

== ENCOUNTER 2024-05-16 13:52 | Emergency (ER) | payer OTHER ==
[~2024-05-16 13:52] MED LIST: NA CHLORIDE 0.9% 1,000 ML ONE
[2024-05-16 15:30] LABS: Absolute Basophils 0.1 K/uL (0-0.5); Absolute Eosinophils 0.1 K/uL (0-0.5); Absolute Lymphocytes (CBC) 2.4 K/uL (0.7-4.9); Absolute Monocytes 0.9 K/uL (0.1-1.3); Absolute Neutrophil 5.1 K/uL (1.8-8.0); Basophils % 0.8 % (0-1.3); Eosinophils % 1.6 % (0-4.4); Hematocrit 37.4 % (39.6-49.0); Hemoglobin 12.1 g/dL (13.6-17.9); Lymphocytes % 27.7 % (15.3-44.8); MCH 27.4 pg (27.0-35.0); MCHC 32.3 g/dL (32.0-36.0); MCV 84.9 fL (80-100); MPV 6.9 fL (7.6-11.3); Monocytes % 10.5 % (3.3-12.3); Neutrophils % 59.4 % (41.7-73.7); Platelets 283 thou/uL (152-406); RBC Red Blood Cell Count 4.41 M/uL (4.33-5.43); Red Cell Distribution Width 24.8 % (12.1-15.2)
[2024-05-16 15:47] LABS: Albumin 3.5 g/dL (3.4-5.0); Albumin/Globulin Ratio 0.9 (1.1-1.8); Anion Gap 12.2 mEq/L (5.0-15.0); Bilirubin Direct 0.2 mg/dL (0-0.2); Bilirubin Indirect, Calculated 0.5 mg/dL (0.2-0.8); Bilirubin Total 0.7 mg/dL (0.2-1.0); Globulin 3.9 g/dL (2.3-3.5); Magnesium 1.5 mg/dL (1.6-2.4); Potassium 3.2 mEq/L (3.5-5.1); Protein, Total 7.4 g/dL (6.4-8.2); Troponin High Sensitivity 5.4 pg/mL (<58.9)
--- NOTE | 2024-05-16 15:47 | RAD REPORT ---
EXAM DESCRIPTION: [place] Single View05/16/2024 2:52 pm CLINICAL HISTORY: Chest pain COMPARISON: May 14, 2024 FINDINGS: Mild reticulonodular opacities within the lungs have mostly resolved Calcified left hilar nodes Heart is normal size
[2024-05-16] MEDS ORDERED: DIPHENHYDRAMINE 50 MG/ML VIAL ONE (15:49)
[2024-05-16] MEDS ORDERED: METOCLOPRAMIDE 10 MG/2mL INJ ONE (15:49)
[2024-05-16] MEDS ORDERED: MAGNESIUM SULFATE 1 gm IVPB 1 GM/100 ML BAG IV ONE (16:09)
[2024-05-16 16:22] LABS: Monoscreen NEG (NEG)
--- NOTE | 2024-05-16 20:12 | RAD REPORT ---
EXAM DESCRIPTION: CT - Soft Tissue Neck W/Contr - 05/16/2024 7:50 pm CLINICAL HISTORY: Neck pain with sore throat COMPARISON: May 14 2004 TECHNIQUE: Computed axial tomography of the neck was obtained. 50 cc Isovue 300 was administered in travenously. Coronal and sagittal reconstruction was performed. All CT scans are performed using dose optimization technique as appropriate and may include automated exposure control or mA/KV adjustment according to patient size. FINDINGS: The pharynx, tongue base, larynx and subglottic trachea appear unremarkable The parotid, submandibular and thyroid glands appear unremarkable. No lymphadenopathy is seen Fluid has developed sphenoid sinus IMPRESSION: Fluid has developed the sphenoid sinus which may indicate acute sinusitis.
--- NOTE | 2024-05-16 20:13 | RAD REPORT ---
EXAM DESCRIPTION: CT - Chest Abdomen Pelvis W Cont - 05/16/2024 7:51 pm CLINICAL HISTORY: Chest and abdominal pain COMPARISON: May 14, 2024 TECHNIQUE: Computed axial tomography of the chest, abdomen and pelvis was obtained. 100 cc Isovue-30 0 was administered intravenously. Oral contrast was not requested. This limits evaluation of bowel. All CT scans are performed using dose optimization technique as appropriate and may include automated exposure control or mA/KV adjustment according to patient size. FINDINGS: Bilateral tree-in-bud opacities without obvious change No mediastinal or hilar lymphadenopathy. No pleural effusion. No pericardial effusion. Liver, spleen, pancreas, adrenals and kidneys are unremarkable Cholecystectomy No evidence of diverticulitis. The rectum and sigmoid are mildly distended with liquid stool. Sigmoid ectomy. Fluid is present within nondistended small bowel. Mild anterior subluxation of L5 on S1. Spondylolysis L5 IMPRESSION: Bilateral tree-in-bud opacities within the lungs without obvious change can be seen with aspiration pneumonitis Rectosigmoid colon mildly distended with liquid stool
[2024-05-16] MEDS ORDERED: CEFTRIAXONE 1000 MG/VIAL ONE (22:00)
[2024-05-16] MEDS ORDERED: AZITHROMYCIN 250 MG TAB ONE (22:00)
--- NOTE | 2024-05-16 22:03 | ER ---
Nurse's Notes [facility] Name: Piter Iglesias Age: 58 yrs Sex: Male : 1965 Arrival Date: 05/16/2024 Time: 13:52 Bed 16 Private MD: Diagnosis: Dysphagia;Acute interstitial pneumonitis;Acute sinusitis, unspecified;Abdominal pain, unspecified;Hypokalemia Presentation: 05/16 14:02 Chief complaint: EMS states: Seen here on 05/14/24 for aspirating food while drinking rs5 water. Continues to have pain to throat and abdomen. Coronavirus screen: At this time, the client does not indicate any symptoms associated with coronavirus-19. Ebola Screen: No symptoms or risks identified at this time. Initial Sepsis Screen: Does the patient meet any 2 criteria? No. Patient's initial sepsis screen is negative. Does the patient have a suspected source of infection? No. Patient's initial sepsis screen is negative. Risk Assessment: Do you want to hurt yourself or someone else? Patient reports no desire to harm self or others. Onset of symptoms was May 16, 2024. 14:02 Method Of Arrival: EMS: [facility] rs5 14:02 Acuity: AISHA 3 rs5 Historical: - Allergies: 14:06 Nuts; rs5 - PMHx: 14:06 Anxiety; elevated creatinine levels; Crohn's Disease; depressive disorder; diabetes rs5 mellitus; elevated liver enzymes; Hyperlipidemia; Hypertension; spinal stenosis; Asthma; ulcerative colitis; - PSHx: 14:06 Cholecystectomy; intestinal Surgery; rs5 - Immunization history:: Adult Immunizations up to date. - Infectious Disease History:: Denies. - Social history:: Smoking status: Patient denies any tobacco usage or history of. Screenin:[address] [facility] ED Fall Risk Assessment (Adult) History of falling in the last 3 months, rs5 including since admission No falls in past 3 months (0 pts) Confusion or Disorientation No (0 pts) Intoxicated or Sedated No (0 pts) Impaired Gait No (0 pts) Mobility Assist Device Used No (0 pt) Altered Elimination No (0 pt) Score/Fall Risk Level 0 - 2 = Low Risk Oriented to surroundings, Maintained a safe environment. Abuse screen: Denies threats or abuse. Nutritional screening: No deficits noted. Tuberculosis screening: No symptoms or risk factors identified. Assessment: 14:02 General: Appears in no apparent distress. uncomfortable, Behavior is calm, cooperative. rs5 Pain: Complains of pain in throat and abdomen generalized Pain currently is 3 out of 10 on a pain scale. Quality of pain is described as aching, Is continuous. Neuro: Level of Consciousness is awake, alert, obeys commands, Oriented to person, place, time, situation. Cardiovascular: Patient's skin is warm and dry. Respiratory: Airway is patent Respiratory effort is even, unlabored, Respiratory pattern is regular, symmetrical. GI: Abdomen is round non-distended, Abd is soft and non tender X 4 quads. : No signs and/or symptoms were reported regarding the genitourinary system. EENT: No signs and/or symptoms were reported regarding the EENT system. Derm: Skin is intact, Skin is pink, warm \T\ dry. Musculoskeletal: Range of motion: intact in all extremities. 14:09 Reassessment: to bedside for covid, flu, and strep swabs, pt refused all swabs, rs5 provider notified. 15:12 Reassessment: Patient and/or family updated on plan of care and expected duration. Pain rs5 level reassessed. Patient is alert, oriented x 3, equal unlabored respirations, skin warm/dry/pink. 15:55 Reassessment: No changes from previously documented assessment. rs5 17:05 Reassessment: Patient and/or family updated on plan of care and expected duration. Pain rs5 level reassessed. Patient is alert, oriented x 3, equal unlabored respirations, skin warm/dry/pink. 18:10 Reassessment: Patient and/or family updated on plan of care and expected duration. Pain rs5 level reassessed. Patient is alert, oriented x 3, equal unlabored respirations, skin warm/dry/pink. 18:48 Reassessment: No changes from previously documented assessment. Patient denies pain at rs5 this time. 19:10 General: Appears in no apparent distress. comfortable, Behavior is calm, cooperative, jj7 appropriate for age. Pain: Complains of pain in mouth Is continuous. Vital Signs: 14:02 BP 128 / 79; Pulse 70; Resp 17; Temp 97.9(O); Pulse Ox 98% ; rs5 15:55 BP 132 / 82; Pulse 74; Resp 17; Pulse Ox 98% on R/A; rs5 18:01 BP 137 / 84; Pulse 70; Resp 16; Pulse Ox 98% on R/A; rs5 19:10 BP 115 / 85; Pulse 80; Resp 16; Pulse Ox 100% ; jj7 20:18 BP 105 / 85; Pulse 73; Resp 18; Pulse Ox 97% ; jj7 21:09 BP 98 / 78; Pulse 67; Resp 17; Pulse Ox 96% ; jj7 22:00 BP 106 / 72; Pulse 92; Resp 19; Temp 97.3; Pulse Ox 100% ; jj7 ED Course: 14:02 Patient arrived in ED. rs5 14:03 Barry Upton PA is PHCP. cp 14:03 Felipe Estrella MD is Attending Physician. cp 14:05 No provider procedures requiring assistance completed. rs5 14:05 Patient has correct armband on for positive identification. Placed in gown. Bed in low rs5 position. Call light in reach. Side rails up X2. 14:06 Triage completed. rs5 14:47 Gage Caldwell, RN is Primary Nurse. rs5 14:53 XRAY Chest (1 view) In Process Unspecified. EDMS 15:20 Lipase Sent. tl4 15:20 [place] Screen Profile Sent. tl4 15:20 Basic Metabolic Panel Sent. tl4 15:20 CBC with Diff Sent. tl4 15:20 LFT's Sent. tl4 15:20 Magnesium Sent. tl4 15:20 Troponin HS Sent. tl4 15:20 Initial lab(s) drawn, by wa, sent to lab. Inserted saline lock: 22 gauge in right tl4 antecubital area, using aseptic technique. Blood collected. Flushed with 10 mL NS. 16:31 Missed attempt(s): 22 gauge in right antecubital area. Bleeding controlled, band aid tm6 applied, catheter tip intact. IV discontinued, intact, bleeding controlled, No redness/swelling at site. Pressure dressing applied, IV blown. 16:32 Missed attempt(s): 22 gauge in left antecubital area. tm6 16:45 Missed attempt(s): 22 gauge in left antecubital area. 24 gauge in left forearm. ll1 Bleeding controlled, band aid applied, catheter tip intact. 19:10 Provided Education on: USE OF CALL REINA. jj7 19:24 Accessed peripheral vein via ultrasound, utilizing dynamic ultrasound technique using ss 20G Nexia IV catheter ,sterile technique, per hospital protocol. Clean \T\ dry. Dressing intact. Good blood return. Flushes easily. 19:48 CT Soft Tissue Neck W/contr In Process Unspecified. EDMS 19:48 CT Chest, Abdomen, Pelvis - W/Contrast In Process Unspecified. EDMS 20:18 Warm blanket given. jj7 22:33 IV discontinued, intact, bleeding controlled, No redness/swelling at site. Pressure sa1 dressing applied. Administered Medications: 15:35 Drug: metoCLOPramide IVP 10 mg IVP once; over 1 to 2 minutes Route: IVP; Site: right rs5 antecubital; 16:00 Follow up: Response: No adverse reaction rs5 15:35 Drug: diphenhydrAMINE IVP 25 mg IVP once Route: IVP; Site: right antecubital; rs5 16:00 Follow up: Response: No adverse reaction rs5 16:49 Not Given (No IV): magnesium sulfate1 grams IVPB once over 1 hrs 1 22:24 Drug: Rocephin IV 1 grams IV at calculated rate once; Given slow IV push per pharmacy jj7 instructions Route: IV; Rate: calculated rate; Site: left forearm; 22:43 Follow up: IV Status: Completed infusion jj7 22:24 Drug: AZITHromycin PO 500 mg PO once Route: PO; jj7 22:43 Follow up: Response: No adverse reaction jj7 22:35 Drug: Potassium PO Effervescent Tablet 50 mEq PO once; dissolve in 4 ounces of water or jj7 juice Route: PO; 22:43 Follow up: Response: No adverse reaction jj7 Medication: 15:55 VIS not applicable for this client. rs5 Outcome: 22:02 Discharge ordered by . lin 22:32 Discharged to home ambulatory, jj7 22:32 Condition: good 22:32 Discharge instructions given to patient, Instructed on discharge instructions, medication usage, Demonstrated understanding of instructions, medications, Prescriptions given X 2, 22:44 Patient left the ED. jj7 Signatures: Dispatcher [employer] EDMS Mai Oconnor RN RN ss Barry Upton PA PA Jackeline Concepcion RN RN ll1 Ac Fernandez, RN RN jj7 Gage Caldwell, RN RN rs5 Estuardo Alonzo, RN RN tm6 Edward Lugo, RN RN tl4 Sultan татьяна Mosqueda
--- NOTE | 2024-05-16 22:03 | EDPHYS ---
Physician Documentation [facility] Name: Piter Iglesias Age: 58 yrs Sex: Male : 1965 Arrival Date: 05/16/2024 Time: 13:52 Bed 16 Private MD: ED Physician Felipe Estrella HPI: 05/16 14:15 This 58 yrs old Black Male presents to ER via EMS with complaints of Sore Throat, cp Abdominal Pain. 14:15 The patient presents with sore throat, dysphagia, of both solids and liquids. cp 14:15 Onset: The symptoms/episode began/occurred 2 day(s) ago, seen in this ED and evaluated cp and continues to have symptoms. Severity of symptoms: in the emergency department the symptoms are unchanged, despite home interventions. Associated signs and symptoms: Pertinent positives: chest pain, nausea, shortness of breath abdominal pain, Pertinent negatives diarrhea, active vomiting, constipation. The patient has been recently seen at the [facility] Emergency Department, 2 days ago. Historical: - Allergies: 14:06 Nuts; rs5 - PMHx: 14:06 Anxiety; elevated creatinine levels; Crohn's Disease; depressive disorder; diabetes rs5 mellitus; elevated liver enzymes; Hyperlipidemia; Hypertension; spinal stenosis; Asthma; ulcerative colitis; - PSHx: 14:06 Cholecystectomy; intestinal Surgery; rs5 - Immunization history:: Adult Immunizations up to date. - Infectious Disease History:: Denies. - Social history:: Smoking status: Patient denies any tobacco usage or history of. ROS: 14:20 Constitutional: Positive for body aches, Negative for fever, poor PO intake, cp 14:20 Cardiovascular: Positive for chest pain, cp 14:20 Respiratory: Positive for cough, shortness of breath, 14:20 Abdomen/GI: Positive for abdominal pain, nausea, Negative for diarrhea, active vomiting, 14:20 Back: Positive for pain at rest, 14:20 : Negative for urinary symptoms, difficulty urinating, testicular pain 14:20 Skin: Negative for cellulitis, rash, 14:20 Neuro: Negative for altered mental status, dizziness, syncope, 14:20 All other systems are negative, Exam: 14:25 Constitutional: The patient appears in no acute distress, alert, awake, cp non-diaphoretic, non-toxic, well developed, well nourished, uncomfortable, 14:25 Head/Face: Normocephalic, atraumatic. cp 14:25 Eyes: Periorbital structures: appear normal, Conjunctiva: normal, no exudate, no injection, Sclera: no appreciated abnormality, Lids and lashes: appear normal, bilaterally, 14:25 ENT: External ear(s): are unremarkable, Nose: is normal, Mouth: Lips: moist, Oral mucosa: pink and intact, moist, Posterior pharynx: Airway: no evidence of obstruction, patent, 14:25 Chest/axilla: Inspection: normal, Palpation: crepitus, is not appreciated, 14:25 Cardiovascular: Rate: normal, Rhythm: regular, 14:25 Respiratory: the patient does not display signs of respiratory distress, Respirations: normal, no use of accessory muscles, no retractions, labored breathing, is not present, Breath sounds: are clear throughout, no decreased breath sounds, no stridor, no wheezing, 14:25 Abdomen/GI: Inspection: scar(s), are noted in the mid line, Bowel sounds: active, all quadrants, Palpation: soft, in all quadrants, moderate abdominal tenderness, in all quadrants, 14:25 Back: CVA tenderness, is absent, 14:25 Skin: no rash present. 14:25 Neuro: Orientation: to person, place \T\ time. Mentation: is normal, Motor: moves all fours, strength is normal, 14:25 Neck: External neck: tenderness, that is moderate, of the thyroid cartilage, right cp sternocleidomastoid and left sternocleidomastoid, ROM/movement: limited range of motion, is not appreciated, Meningeal signs: are not present, nuchal rigidity, is not appreciated, 15:18 ECG was reviewed by the Attending Physician. cp Vital Signs: 14:02 BP 128 / 79; Pulse 70; Resp 17; Temp 97.9(O); Pulse Ox 98% ; rs5 15:55 BP 132 / 82; Pulse 74; Resp 17; Pulse Ox 98% on R/A; rs5 18:01 BP 137 / 84; Pulse 70; Resp 16; Pulse Ox 98% on R/A; rs5 19:10 BP 115 / 85; Pulse 80; Resp 16; Pulse Ox 100% ; jj7 20:18 BP 105 / 85; Pulse 73; Resp 18; Pulse Ox 97% ; jj7 21:09 BP 98 / 78; Pulse 67; Resp 17; Pulse Ox 96% ; jj7 22:00 BP 106 / 72; Pulse 92; Resp 19; Temp 97.3; Pulse Ox 100% ; jj7 MDM: 14:03 Patient medically screened. 22:01 Data reviewed: vital signs, nurses notes, lab test result(s), EKG, radiologic studies, cp CT scan, plain films, and as a result, I will discharge patient. 22:01 I considered the following discharge prescriptions or medication management in the emergency department Medications were administered in the Emergency Department. See MAR. Independent interpretation of the following test(s) in the Emergency Department EKG: See my EKG interpretation above. Care significantly affected by the following chronic conditions: Diabetes, Hypertension, bowel disease. Counseling: I had a detailed discussion with the patient and/or guardian regarding the historical points, exam findings, and any diagnostic results supporting the discharge/admit diagnosis, lab results, radiology results, to return to the emergency department if symptoms worsen or persist or if there are any questions or concerns that arise at home. Response to treatment: the patient's symptoms have markedly improved after treatment, and as a result, I will discharge patient. Special discussion: Based on the patient's Hx, exam, and Dx evaluation, there is no indication for emergent surgery or inpatient Tx. It is understood by the patient/guardian that if the Sx's persist or worsen they need to return immediately for re-evaluation. 05/16 14:11 Order name: Basic Metabolic Panel; Complete Time: 15:58 05/16 15:58 Interpretation: Normal except: K 3.2; CL 111; CO2 19; GFR 83. 05/16 14:11 Order name: CBC with Diff; Complete Time: 22:05 05/16 22:05 Interpretation: Normal except: HGB 12.1; HCT 37.4; RDW 24.8; MPV 6.9. 05/16 14:11 Order name: LFT's; Complete Time: 15:58 05/16 14:11 Order name: Magnesium; Complete Time: 15:58 05/16 14:11 Order name: Troponin HS; Complete Time: 15:58 05/16 14:11 Order name: [place] Screen Profile; Complete Time: 22:05 05/16 14:11 Order name: Lipase; Complete Time: 15:58 05/16 14:11 Order name: XRAY Chest (1 view) 05/16 16:02 Order name: CT Soft Tissue Neck W/contr 05/16 16:02 Order name: CT Chest, Abdomen, Pelvis - W/Contrast 05/16 14:11 Order name: EKG; Complete Time: 14:12 05/16 14:11 Order name: Cardiac monitoring; Complete Time: 15:30 05/16 14:11 Order name: EKG - Nurse/Tech; Complete Time: 15:30 05/16 14:11 Order name: IV Saline Lock; Complete Time: 15:20 05/16 14:11 Order name: Labs collected and sent; Complete Time: 15:20 05/16 14:11 Order name: O2 Per Protocol; Complete Time: 15:20 05/16 14:11 Order name: O2 Sat Monitoring; Complete Time: 15:20 cp EC:18 Rate is 80 beats/min. Rhythm is regular. [place] interval is normal. QRS interval is normal. cp QT interval is normal. T waves are Inverted in lead aVR. Interpreted by me. Reviewed by me. Administered Medications: 15:35 Drug: metoCLOPramide IVP 10 mg IVP once; over 1 to 2 minutes Route: IVP; Site: right rs5 antecubital; 16:00 Follow up: Response: No adverse reaction rs5 15:35 Drug: diphenhydrAMINE IVP 25 mg IVP once Route: IVP; Site: right antecubital; rs5 16:00 Follow up: Response: No adverse reaction rs5 16:49 Not Given (No IV): magnesium sulfate1 grams IVPB once over 1 hrs ll1 22:24 Drug: Rocephin IV 1 grams IV at calculated rate once; Given slow IV push per pharmacy jj7 instructions Route: IV; Rate: calculated rate; Site: left forearm; 22:43 Follow up: IV Status: Completed infusion jj7 22:24 Drug: AZITHromycin PO 500 mg PO once Route: PO; jj7 22:43 Follow up: Response: No adverse reaction j7 22:35 Drug: Potassium PO Effervescent Tablet 50 mEq PO once; dissolve in 4 ounces of water or jj7 juice Route: PO; 22:43 Follow up: Response: No adverse reaction jj7 Disposition Summary: 05/16/24 22:02 Discharge Ordered Notes: Location: Home cp Problem: new cp Symptoms: have improved cp Condition: Stable cp Diagnosis - Dysphagia cp - Acute interstitial pneumonitis cp - Acute sinusitis, unspecified cp - Abdominal pain, unspecified cp - Hypokalemia cp Followup: cp - With: Private Physician - When: 2 - 3 days - Reason: Recheck today's complaints Discharge Instructions: - Discharge Summary Sheet cp - Abdominal Pain, Adult cp - Potassium Content of Foods cp - Dysphagia cp - Sinusitis, Adult cp - Hypokalemia cp Forms: - Medication Reconciliation Form cp - Antibiotic Education cp - Prescription Opioid Use cp - Patient Portal Instructions cp - Leadership Thank You Letter cp Prescriptions: - Zofran 4 mg Oral Tablet - take 1 tablet ORAL route every 12 hours As needed; 20 tablet; Refills: 0, cp Product Selection Permitted - Zithromax Z-Vignesh 250 mg Oral Tablet - take 1 tablet ORAL route as directed for 5 days Day 1 - take two (2) tablets cp one time. Day 2, 3, 4 , 5 take one (1) tablet once daily.; 6 tablet; Refills: 0, Product Selection Permitted Addendum: 05/21/2024 06:59 Co-signature as Attending Physician, Felipe Estrella MD I reviewed the patient's care r n provided by the Advanced Practice Provider and agree with the diagnosis and treatment plan. Signatures: Dispatcher [employer] Felipe Dinh MD MD rn Page, Corey, PA PA cp Ac Fernandez RN RN jj7 Gage Caldwell RN RN rs5 Jackeline William RN ll1 Corrections: (The following items were deleted from the chart) 05/16 14:12 14:12 BASIC METABOLIC PANEL+C.LAB.BRZ ordered. EDMS EDMS 14:12 14:12 CBC+H.LAB.BRZ ordered. EDMS EDMS 14:12 14:12 HEPATIC FUNCTION+C.LAB.BRZ ordered. EDMS EDMS 14:12 14:12 MAGNESIUM+C.LAB.BRZ ordered. EDMS EDMS 14:12 14:12 Troponin High Sensitivity+C.LAB.BRZ ordered. EDMS EDMS 14:12 14:12 URINE DRUG SCREEN+UC.LAB.BRZ ordered. EDMS EDMS 14:12 14:12 Urinalysis+U.LAB.BRZ ordered. EDMS EDMS 14:12 14:12 Group A Streptococcus Rapid Sc+BA.LAB.BRZ ordered. EDMS EDMS 14:12 14:12 MONO SCREEN PROFILE+I.LAB.BRZ ordered. EDMS EDMS 14:12 14:12 SARS-COV-2 Antigen Rapid+I.LAB.BRZ ordered. EDMS EDMS 14:12 14:12 Influenza Screen (A \T\ B)+BA.LAB.BRZ ordered. EDMS EDMS 14:12 14:12 LIPASE+C.LAB.BRZ ordered. EDMS EDMS 16:03 16:03 Soft Tissue Neck W/Contr+CT.RAD.BRZ ordered. EDMS EDMS 16:03 16:03 Chest Abdomen Pelvis W Con+CT.RAD.BRZ ordered. EDMS EDMS
[2024-05-16] MEDS ORDERED: POTASSIUM 25 MEQ EFFERV TAB ONE (22:29)
[2024-05-16 22:55] VITALS: BP 106/72; TEMP 97.3; O2SAT 100
--- NOTE | 2024-05-17 14:39 | EKG ---
Test Date: 2024-05-16 Test Time: 15:13:08 Soap Slabber: ALEKSANDR MEASUREMENT RESULTS: Intervals: Rate: 80 TN: 138 QRSD: 64 QT: 376 QTc: 433 [place]: P: 74 TN: 138 QRS: 24 T: 20 INTERPRETIVE STATEMENTS: Normal sinus rhythm Normal ECG Compared to ECG 05/14/2024 03:51:39 ST (T wave) deviation no longer present Electronically Signed On 05-17-24 14:38:21 CDT by Aba Hernandez
== END 2024-05-16 22:44 | disposition home or self-care (01) ==
LOC: ER 13:52
DX: R13.10 Dysphagia, unspecified (principal); J84.114 Acute interstitial pneumonitis; J01.90 Acute sinusitis, unspecified; E87.6 Hypokalemia; R10.84 Generalized abdominal pain; I10 Essential (primary) hypertension; Z11.52 Encounter for screening for COVID-19
CPT/HCPCS: 96365; 93005; 85025; 80048; 36415; 83735; 86308; 80076; 84484; 83690; 71260; 70491; 74177; 71045; 96375; 99285; Q9967; J3475; J2765; J1200; J7030; J0696

== ENCOUNTER 2024-05-29 21:54 | Emergency (ER) | payer OTHER ==
[2024-05-29] MEDS ORDERED: DIAZEPAM 5 MG TABLET ONE (22:24)
--- NOTE | 2024-05-29 22:30 | ER ---
Nurse's Notes [facility] Name: Piter Iglesias Age: 59 yrs Sex: Male : 1965 Arrival Date: 05/29/2024 Time: 21:54 Bed 4 Private MD: Diagnosis: Anxiety disorder, unspecified;Chronic Dysphagia, anxiety attack, Presentation: 05/29 22:20 Chief complaint: EMS states: feels like medicine stuck in his throat. Coronavirus kj2 screen: At this time, the client does not indicate any symptoms associated with coronavirus-19. Ebola Screen: No symptoms or risks identified at this time. Initial Sepsis Screen: Does the patient meet any 2 criteria? No. Patient's initial sepsis screen is negative. Does the patient have a suspected source of infection? No. Patient's initial sepsis screen is negative. Risk Assessment: Do you want to hurt yourself or someone else? Patient reports no desire to harm self or others. Onset of symptoms was May 29, 2024. 22:20 Method Of Arrival: EMS: [facility] kj2 22:20 Acuity: AISHA 4 kj2 22:21 Ebola Screen: No symptoms or risks identified at this time. Initial Sepsis Screen: Does ha1 the patient meet any 2 criteria? No. Patient's initial sepsis screen is negative. Does the patient have a suspected source of infection? No. Patient's initial sepsis screen is negative. Risk Assessment: Do you want to hurt yourself or someone else? Patient reports no desire to harm self or others. Onset of symptoms was May 29, 2024. 22:21 Acuity: AISHA 3 ha1 Triage Assessment: 22:22 General: Appears in no apparent distress. Behavior is uncooperative. Pain: Complains of kj2 pain in right arm, throat Pain currently is 8 out of 10 on a pain scale. EENT: Reports difficulty swallowing. Historical: - Allergies: 22:19 Nuts; kj2 - PMHx: 22:19 elevated creatinine levels; Anxiety; Asthma; Crohn's Disease; depressive disorder; kj2 diabetes mellitus; elevated liver enzymes; Hyperlipidemia; Hypertension; spinal stenosis; ulcerative colitis; - PSHx: 22:19 Cholecystectomy; intestinal Surgery; kj2 - Immunization history:: Adult Immunizations unknown. - Infectious Disease History:: Denies. - Social history:: Smoking status: unknown. Screenin:10 [facility] ED Fall Risk Assessment (Adult) History of falling in the last 3 months, ha1 including since admission No falls in past 3 months (0 pts) Confusion or Disorientation No (0 pts) Intoxicated or Sedated No (0 pts) Impaired Gait Yes (1 pt) Mobility Assist Device Used Yes (1 pt) Altered Elimination No (0 pt) Score/Fall Risk Level 3 or more points = High Risk Oriented to surroundings, Maintained a safe environment, Educated pt \\T\\ family on fall prevention, incl call for assistance when getting out of bed, Hourly rounding (assess needs \\T\\ fall precautionary measures) done. Abuse screen: Denies threats or abuse. Denies injuries from another. Nutritional screening: No deficits noted. Tuberculosis screening: No symptoms or risk factors identified. Assessment: 22:17 Reassessment: PATIENT STATES " I JUST FEEL ANXIOUS AND I FEEL LIKE I CAN NOT SWALLOW." ha1 DR. ZAYAS IN THE ROOM EXPLAINING THE NEED TO DO A CT AND BLOOD WORK. PATIENT REFUSED CT AND BLOOD WORK. 22:23 Respiratory: Airway is patent Respiratory effort is even, unlabored, Breath sounds are kj2 clear. EENT: Throat is clear. Vital Signs: 22:20 BP 128 / 92; Pulse 87; Resp 18; Temp 98.6; Pulse Ox 100% on R/A; Weight 72.12 kg; kj2 Height 5 ft. 3 in. ; Pain 8/10; 22:33 BP 128 / 92; Pulse 87; Resp 18; Temp 98.6; Pulse Ox 100% on R/A; kj2 22:20 Body Mass Index 28.17 (72.12 kg, 160.02 cm) kj2 22:20 Pain Scale: Adult kj2 ED Course: 22:06 Patient arrived in ED. lg3 22:06 Patient has correct armband on for positive identification. Bed in low position. Call ha1 light in reach. Side rails up X 1. 22:10 Shar Gusman MD is Attending Physician. sp4 22:19 Marleny Pablo, YUSUF is Primary Nurse. kj2 22:21 Triage completed. ha1 22:24 Arm band placed on Patient placed in an exam room. kj2 22:24 No provider procedures requiring assistance completed. kj2 22:25 Provided Education on: call light. kj2 22:25 Patient did not have IV access during this emergency room visit. kj2 22:29 Adarsh Simmons MD is Referral Physician. sp4 Administered Medications: 22:28 Drug: Diazepam PO 5 mg PO once Route: PO; ha1 Medication: 22:23 VIS not applicable for this client. kj2 Outcome: 22:24 Condition: stable kj2 22:24 Discharge instructions given to patient, Instructed on discharge instructions, follow up and referral plans. Demonstrated understanding of instructions, follow-up care, 22:25 Discharged to home kj2 22:30 Discharge ordered by . sp4 22:41 Patient left the ED. kj2 Signatures: Dona Hopkins, RN RN lg3 Cristina Radford RN RN ha1 Shar Gusman MD MD sp4 Marleny Pablo RN RN kj2
--- NOTE | 2024-05-29 22:30 | EDPHYS ---
Physician Documentation [facility] Name: Piter Iglesias Age: 59 yrs Sex: Male : 1965 Arrival Date: 05/29/2024 Time: 21:54 Bed 4 Private MD: LILLI Physician Shar Gusman HPI: 05/29 22:16 This 59 yrs old Black Male presents to ER via Unassigned with complaints of feeling of sp4 pills stuck in the throat . Historical: - Allergies: 22:19 Nuts; kj2 - PMHx: 22:19 elevated creatinine levels; Anxiety; Asthma; Crohn's Disease; depressive disorder; kj2 diabetes mellitus; elevated liver enzymes; Hyperlipidemia; Hypertension; spinal stenosis; ulcerative colitis; - PSHx: 22:19 Cholecystectomy; intestinal Surgery; kj2 - Immunization history:: Adult Immunizations unknown. - Infectious Disease History:: Denies. - Social history:: Smoking status: unknown. Vital Signs: 22:20 BP 128 / 92; Pulse 87; Resp 18; Temp 98.6; Pulse Ox 100% on R/A; Weight 72.12 kg; kj2 Height 5 ft. 3 in. ; Pain 8/10; 22:33 BP 128 / 92; Pulse 87; Resp 18; Temp 98.6; Pulse Ox 100% on R/A; kj2 22:20 Body Mass Index 28.17 (72.12 kg, 160.02 cm) kj2 22:20 Pain Scale: Adult kj2 MDM: 22:17 Patient medically screened. sp4 05/29 22:20 Order name: PO challenge; Complete Time: 22:20 ha1 Administered Medications: 22:28 Drug: Diazepam PO 5 mg PO once Route: PO; ha1 Disposition Summary: 05/29/24 22:30 Discharge Ordered Notes: Location: Home sp4 Problem: new sp4 Symptoms: have improved sp4 Condition: Stable sp4 Diagnosis - Anxiety disorder, unspecified sp4 - Chronic Dysphagia, anxiety attack, sp4 Followup: sp4 - With: Adarsh Simmons MD - When: 1 - 2 days - Reason: Recheck today's complaints Discharge Instructions: - Discharge Summary Sheet sp4 - Managing Anxiety, Adult sp4 Forms: - Patient Portal Instructions sp4 Signatures: Cristina Radford RN RN ha1 Shar Gusman MD MD sp4 Marleny Pablo, RN RN kj2
[2024-05-29 22:54] VITALS: BP 128/92; TEMP 98.6; O2SAT 100
== END 2024-05-29 22:41 | disposition home or self-care (01) ==
LOC: ER 21:54
DX: F41.0 Panic disorder [episodic paroxysmal anxiety] (principal); F41.9 Anxiety disorder, unspecified
CPT/HCPCS: 99284

== ENCOUNTER 2024-06-19 18:01 | Emergency (ER) | payer OTHER ==
[2024-06-19] MEDS ORDERED: KETOROLAC 30 MG/ML INJ ONE (18:19)
--- NOTE | 2024-06-19 19:05 | ER ---
Nurse's Notes [facility] Name: Piter Iglesias Age: 59 yrs Sex: Male : 1965 Arrival Date: 06/19/2024 Time: 18:01 Bed 5 Private MD: Diagnosis: Low back pain Presentation: 06/19 18:02 Chief complaint: EMS states: NAUSEA AFTER EATING FROZEN PIZZA, NOW RESOLVED AFTER bp SUBLINGUAL ZOFRAN. Coronavirus screen: At this time, the client does not indicate any symptoms associated with coronavirus-19. Ebola Screen: No symptoms or risks identified at this time. Initial Sepsis Screen: Does the patient meet any 2 criteria? HR > 90 bpm. No. Patient's initial sepsis screen is negative. Does the patient have a suspected source of infection? No. Patient's initial sepsis screen is negative. Risk Assessment: Do you want to hurt yourself or someone else? Patient reports no desire to harm self or others. Onset of symptoms is unknown. Care prior to arrival: Glucose check: 168. 18:02 Method Of Arrival: EMS: [facility] bp 18:02 Acuity: AISHA 3 bp Triage Assessment: 18:04 General: Appears in no apparent distress. Behavior is cooperative, appropriate for age, bp anxious. Pain: Complains of pain in abdomen. EENT: No deficits noted. Neuro: No deficits noted. Cardiovascular: Rhythm is sinus tachycardia. Respiratory: No deficits noted. GI: Reports upper abdominal pain. : No signs and/or symptoms were reported regarding the genitourinary system. Derm: No deficits noted. Musculoskeletal: No deficits noted. Historical: - Allergies: 18:04 Nuts; bp - PMHx: 18:04 elevated creatinine levels; Anxiety; Asthma; Crohn's Disease; depressive disorder; bp diabetes mellitus; elevated liver enzymes; Hyperlipidemia; Hypertension; spinal stenosis; ulcerative colitis; - PSHx: 18:04 Cholecystectomy; intestinal Surgery; bp - Immunization history:: Adult Immunizations up to date. - Infectious Disease History:: Denies. - Social history:: Smoking status: unknown. Screenin:05 [facility] ED Fall Risk Assessment (Adult) History of falling in the last 3 months, bp including since admission No falls in past 3 months (0 pts) Confusion or Disorientation No (0 pts) Intoxicated or Sedated No (0 pts) Impaired Gait No (0 pts) Mobility Assist Device Used No (0 pt) Altered Elimination No (0 pt) Score/Fall Risk Level 0 - 2 = Low Risk. Abuse screen: Denies threats or abuse. Denies injuries from another. Nutritional screening: No deficits noted. Tuberculosis screening: No symptoms or risk factors identified. Assessment: 18:05 General: SEE TRIAGE NOTE. bp 19:26 Reassessment: Patient appears in no apparent distress at this time. Patient and/or kj2 family updated on plan of care and expected duration. Pain level reassessed. Patient is alert, oriented x 3, equal unlabored respirations, skin warm/dry/pink. 19:26 GI: Bowel sounds present X 4 quads. Abd is non tender X 4 quads. kj2 Vital Signs: 18:02 BP 124 / 75; Pulse 120; Resp 16; Temp 98; Pulse Ox 98% ; bp 19:17 BP 118 / 79; Pulse 98; Resp 18; Temp 97.9; Pulse Ox 99% on R/A; ph ED Course: 18:02 Patient arrived in ED. bp 18:03 Maria Luisa Auguste PA-C is PHCP. sb4 18:03 Barry Ureña MD is Attending Physician. sb4 18:04 Triage completed. bp 18:04 Arm band placed on. bp 18:05 Patient has correct armband on for positive identification. bp 18:07 Rhonda Gentile, RN is Primary Nurse. ph 19:26 No provider procedures requiring assistance completed. kj2 19:27 Provided Education on: DISEASE PROCESS AND MANAGEMENT. kj2 19:37 Patient did not have IV access during this emergency room visit. kj2 Administered Medications: 18:23 Drug: Ketorolac IM 30 mg IM once Route: IM; Site: right deltoid; ph 19:17 Follow up: Response: No adverse reaction; Pain is decreased ph Medication: 18:05 VIS not applicable for this client. bp Outcome: 19:04 Discharge ordered by . sb4 19:27 Discharged to home ambulatory, kj2 19:27 Condition: stable 19:27 Discharge instructions given to patient, Instructed on discharge instructions, follow up and referral plans. Demonstrated understanding of instructions, follow-up care, 19:37 Patient left the ED. kj2 Signatures: Rhonda Gentile RN RN Simon Groves RN RN Maria Luisa Dennison PA-C PA-C sb4 Marleny Pablo, RN RN kj2
--- NOTE | 2024-06-19 19:05 | EDPHYS ---
Physician Documentation [facility] Name: Piter Iglesias Age: 59 yrs Sex: Male : 1965 Arrival Date: 06/19/2024 Time: 18:01 Bed 5 Private MD: ED Physician Barry Ureña HPI: 06/19 18:14 This 59 yrs old Black Male presents to ER via EMS with complaints of Abdominal Pain. sb4 18:14 patient reports chronic abdominal pain, worse after eating microwave pizza. took zofran sb4 and symptoms improved. additionally, he reports pain and inflammation in his back. has had several abdominal surgeries in the past, last BM this morning. no vomiting or diarrhea. Historical: - Allergies: 18:04 Nuts; bp - PMHx: 18:04 elevated creatinine levels; Anxiety; Asthma; Crohn's Disease; depressive disorder; bp diabetes mellitus; elevated liver enzymes; Hyperlipidemia; Hypertension; spinal stenosis; ulcerative colitis; - PSHx: 18:04 Cholecystectomy; intestinal Surgery; bp - Immunization history:: Adult Immunizations up to date. - Infectious Disease History:: Denies. - Social history:: Smoking status: unknown. ROS: 18:15 Constitutional: Negative for fever, chills, and weight loss, sb4 18:15 Abdomen/GI: Positive for abdominal pain, 18:15 Back: Positive for injury or acute deformity, pain at rest, 18:15 All other systems are negative, Exam: 18:15 Constitutional: This is a well developed, well nourished patient who is awake, alert, sb4 and in no acute distress. Head/Face: Normocephalic, atraumatic. Eyes: Extra-ocular motions intact. Periorbital areas with no swelling, redness, or edema. ENT: Mucous membranes moist. Skin: Warm, dry with normal turgor. Normal color with no rashes, no lesions, and no evidence of cellulitis. MS/ Extremity: Pulses equal, no cyanosis. Neurovascular intact. Full, normal range of motion. 18:15 Abdomen/GI: Inspection: scar(s), are noted in the epigastric area, umbilical area, suprapubic area and right upper quadrant, Bowel sounds: normal, Vital Signs: 18:02 BP 124 / 75; Pulse 120; Resp 16; Temp 98; Pulse Ox 98% ; bp 19:17 BP 118 / 79; Pulse 98; Resp 18; Temp 97.9; Pulse Ox 99% on R/A; ph MDM: 18:03 Patient medically screened. sb4 18:16 ED course: patient does not want a blood work or IV done right now. he would like sb4 medicine to help the inflammation in his back. 19:04 Data reviewed: vital signs, nurses notes, EMS record, and as a result, I will discharge sb4 patient. Counseling: I had a detailed discussion with the patient and/or guardian regarding the historical points, exam findings, and any diagnostic results supporting the discharge/admit diagnosis, to return to the emergency department if symptoms worsen or persist or if there are any questions or concerns that arise at home. Administered Medications: 18:23 Drug: Ketorolac IM 30 mg IM once Route: IM; Site: right deltoid; ph 19:17 Follow up: Response: No adverse reaction; Pain is decreased ph Disposition Summary: 06/19/24 19:04 Discharge Ordered Notes: Location: Home sb4 Problem: new sb4 Symptoms: have improved sb4 Condition: Stable sb4 Diagnosis - Low back pain sb4 Followup: sb4 - With: Private Physician - When: As needed - Reason: Recheck today's complaints, Re-evaluation by your physician Discharge Instructions: - Discharge Summary Sheet sb4 - Musculoskeletal Pain sb4 Forms: - Patient Portal Instructions sb4 - Leadership Thank You Letter sb4 Signatures: Rhonda Gentile RN RN Simon Arevalo RN RN Maria Luisa Dennison PA-C PA-C sb4
[2024-06-20 11:01] VITALS: BP 118/79; TEMP 97.9; O2SAT 99
== END 2024-06-19 19:37 | disposition home or self-care (01) ==
LOC: ER 18:01
DX: M54.50 Low back pain, unspecified (principal); R10.9 Unspecified abdominal pain; K51.90 Ulcerative colitis, unspecified, without complications; F41.9 Anxiety disorder, unspecified; J45.909 Unspecified asthma, uncomplicated; K50.90 Crohn's disease, unspecified, without complications; F32.A Depression, unspecified; E11.9 Type 2 diabetes mellitus without complications; E78.5 Hyperlipidemia, unspecified; I10 Essential (primary) hypertension
CPT/HCPCS: 96372; 99284

== ENCOUNTER 2024-06-30 07:49 | Emergency (ER) | payer OTHER ==
[2024-06-30] MEDS ORDERED: NA CHLORIDE 0.9% 1,000 ML ONE (08:07)
[2024-06-30] MEDS ORDERED: DIAZEPAM 10 MG/2 ML INJ SYRINGE ONE (08:07)
[2024-06-30 08:33] LABS: Absolute Basophils 0.2 K/uL (0-0.5); Absolute Eosinophils 0.1 K/uL (0-0.5); Absolute Lymphocytes (CBC) 3.2 K/uL (0.7-4.9); Absolute Neutrophil 4.3 K/uL (1.8-8.0); Basophils % 1.7 % (0-1.3); Eosinophils % 1.6 % (0-4.4); Hematocrit 39.1 % (39.6-49.0); Hemoglobin 13.2 g/dL (13.6-17.9); Lymphocytes % 36.2 % (15.3-44.8); MCH 29.4 pg (27.0-35.0); MCHC 33.7 g/dL (32.0-36.0); MCV 87.4 fL (80-100); MPV 6.2 fL (7.6-11.3); Monocytes % 11.7 % (3.3-12.3); Neutrophils % 48.8 % (41.7-73.7); Nucleated Red Blood Cells % 0.5 % (0-0); Platelets 327 thou/uL (152-406); RBC Red Blood Cell Count 4.48 M/uL (4.33-5.43); Red Cell Distribution Width 17.5 % (12.1-15.2)
[2024-06-30 08:35] LABS: PT Prothrombin Time 10.3 SECONDS (9.4-12.5); Protime INR 0.92
[2024-06-30 08:50] LABS: Anion Gap 8.7 mEq/L (5.0-15.0); Potassium 3.7 mEq/L (3.5-5.1); Troponin High Sensitivity 4.8 pg/mL (<58.9)
[2024-06-30 09:03] LABS: Blood Morphology Comment NOTED (NOT SEEN); Platelet Estimate ADEQ; Teardrop Cell 1+; White Blood Cell Scan OK (OK)
--- NOTE | 2024-06-30 09:21 | EDPHYS ---
Physician Documentation [facility] Name: Piter Iglesias Age: 59 yrs Sex: Male : 1965 Arrival Date: 06/30/2024 Time: 07:49 Bed 7 Private MD: ED Physician Brad Koroma HPI: 06/30 08:02 This 59 yrs old Black Male presents to ER via EMS with complaints of Anxiety. ec2 08:02 Patient arrives today due to concern for anxiety. Patient reports that he has not been ec2 able to sleep for the past approximately 24 hours. Patient reports history of anxiety, diabetes, hypertension. Patient reports generally feeling unwell. Denies any substance use or abuse. . Historical: - Allergies: 07:53 Nuts; mb9 - Home Meds: 07:53 Metformin Oral [Active]; mb9 - PMHx: 07:53 elevated creatinine levels; Anxiety; Asthma; Crohn's Disease; depressive disorder; mb9 diabetes mellitus; elevated liver enzymes; Hyperlipidemia; Hypertension; spinal stenosis; ulcerative colitis; - PSHx: 07:53 Cholecystectomy; intestinal Surgery; mb9 - Immunization history:: Adult Immunizations up to date. - Infectious Disease History:: Denies. - Social history:: Smoking status: Patient denies any tobacco usage or history of. ROS: 08:02 Constitutional: as per hpi ec2 Exam: 08:02 Constitutional: GEN: NAD Head: atraumatic Eyes: EOMI Ears: External ears are ec2 normal. CV: Tachycardia LUNGS: no respiratory distress ABD: non-distended SKIN: no evidence of rashes MSK: no evidence of trauma. Psych: Anxious individual was otherwise cooperative. Vital Signs: 07:51 BP 129 / 98; Pulse 101; Resp 16; Temp 98; Pulse Ox 100% ; Weight 76.2 kg; Height 5 ft. mb9 3 in. ; Pain 10/10; 08:26 Pulse 98; ec2 09:06 BP 153 / 107; Pulse 90; Resp 15; Pulse Ox 96% on R/A; mb9 09:51 BP 164 / 99; Pulse 95; Resp 18; Pulse Ox 97% on R/A; mb9 07:51 Body Mass Index 29.76 (76.20 kg, 160.02 cm) mb9 07:51 Pain Scale: Adult mb9 MDM: 08:02 Data reviewed: vital signs. ED course: The patient arrives today for evaluation of ec2 anxiety. Examination remarkable for well-appearing nontoxic individual who is anxious and slightly tachycardic. Will obtain lab work, EKG, chest x-ray, give the patient Valium. Differential diagnosis considered include processes such as ACS, PE, dissection, anxiety.. 08:26 ED course: EKG independently reviewed and interpreted by me, shows normal sinus rhythm, ec2 rate of 98, no acute ST segment elevations, intervals are nonactionable.. 08:56 ED course: Metabolic profile is reassuring. Troponin within normal ranges. On ec2 reassessment patient with improved hemodynamics, improved tachycardia and improved restlessness. . 09:19 ED course: Chest x-ray chest x-ray independently reviewed and interpreted by me, shows ec2 no acute intrathoracic process. . 09:21 Patient medically screened. ec2 06/30 07:58 Order name: Basic Metabolic Panel; Complete Time: 08:55 ec2 06/30 07:58 Order name: CBC with Diff; Complete Time: 09:18 ec2 06/30 07:58 Order name: PT-INR; Complete Time: 08:55 ec2 06/30 07:58 Order name: Troponin HS; Complete Time: 08:55 ec2 06/30 08:36 Order name: CBC Smear Scan; Complete Time: 09:18 EDMS 06/30 07:58 Order name: XRAY Chest (1 view); Complete Time: 09:33 ec2 06/30 07:58 Order name: EKG; Complete Time: 07:59 ec2 06/30 07:58 Order name: Cardiac monitoring; Complete Time: 07:59 ec2 06/30 07:58 Order name: EKG - Nurse/Tech; Complete Time: 08:10 ec2 06/30 07:58 Order name: IV Saline Lock; Complete Time: 08:30 ec2 06/30 07:58 Order name: Labs collected and sent; Complete Time: 08:30 ec2 06/30 07:58 Order name: O2 Per Protocol; Complete Time: 07:59 ec2 06/30 07:58 Order name: O2 Sat Monitoring; Complete Time: 07:59 ec2 Administered Medications: 08:30 Drug: Diazepam IVP 10 mg IVP once Route: IVP; Site: left antecubital; mb9 09:52 Follow up: Response: No adverse reaction 9 08:30 Drug: NS 0.9% IV 1000 ml IV at 1000 ml once; to be given as a bolus over 60 minutes mb9 Route: IV; Rate: 1000 ml; Site: left antecubital; 09:52 Follow up: Response: No adverse reaction; IV Status: Completed infusion mb9 Disposition Summary: 06/30/24 09:21 Discharge Ordered Notes: Location: Home ec2 Condition: Stable ec2 Diagnosis - Generalized anxiety disorder ec2 Followup: ec2 - With: Private Physician - When: - Reason: Re-evaluation by your physician Discharge Instructions: - Discharge Summary Sheet ec2 - Panic Attack, Boeb-ih-Iiab ec2 Forms: - Medication Reconciliation Form ec2 - Antibiotic Education ec2 - Prescription Opioid Use ec2 - Patient Portal Instructions ec2 - Leadership Thank You Letter ec2 Signatures: Dispatcher [employer] Marion Langston RN RN mb9 Brad Koroma MD MD ec2 Corrections: (The following items were deleted from the chart) 07:59 07:59 BASIC METABOLIC PANEL+C.LAB.BRZ ordered. EDMS EDMS 07:59 07:59 CBC+H.LAB.BRZ ordered. EDMS EDMS 07:59 07:59 PROTIME (+INR)+COAG.LAB.BRZ ordered. EDMS EDMS 07:59 07:59 Troponin High Sensitivity+C.LAB.BRZ ordered. EDMS EDMS 07:59 07:59 Chest Single View+RAD.RAD.BRZ ordered. EDMS EDMS
--- NOTE | 2024-06-30 09:21 | ER ---
Nurse's Notes [facility] Name: Piter Iglesias Age: 59 yrs Sex: Male : 1965 Arrival Date: 06/30/2024 Time: 07:49 Bed 7 Private MD: Diagnosis: Generalized anxiety disorder Presentation: 06/30 07:51 Chief complaint: EMS states: "toned out for anxiety and high blood sugar with history mb9 of DM. BGL 136 on arrival.". Coronavirus screen: Vaccine status: Patient reports receiving the 2nd dose of the covid vaccine. Ebola Screen: No symptoms or risks identified at this time. Initial Sepsis Screen: Does the patient meet any 2 criteria? No. Patient's initial sepsis screen is negative. Does the patient have a suspected source of infection? No. Patient's initial sepsis screen is negative. Risk Assessment: Do you want to hurt yourself or someone else? Patient reports no desire to harm self or others. Onset of symptoms was June 30, 2024. 07:51 Acuity: AISHA 3 mb9 07:51 Method Of Arrival: EMS: [facility] mb9 Triage Assessment: 07:53 General: Appears uncomfortable, Behavior is anxious. Pain: Complains of pain in back, mb9 right arm, left arm, right leg and left leg Pain radiates to entire body Pain currently is 10 out of 10 on a pain scale. Quality of pain is described as tingling, throbbing, numb. EENT: No signs and/or symptoms were reported regarding the EENT system. EENT: Eyes red. Neuro: Campbell Agitation-Sedation Scale (RASS): +1 Restless Level of Consciousness is awake, alert, obeys commands, Oriented to person, place, time, situation, Appropriate for age. Neuro: pt twitching . Cardiovascular: Patient's skin is warm and dry. Respiratory: Airway is patent Respiratory effort is even, unlabored, Respiratory pattern is regular, symmetrical. GI: Abdomen is round non-distended, Reports bloating. : No signs and/or symptoms were reported regarding the genitourinary system. Derm: Skin is pink, warm \\T\\ dry. Musculoskeletal: Reports pain in entire body. Historical: - Allergies: 07:53 Nuts; mb9 - Home Meds: 07:53 Metformin Oral [Active]; mb9 - PMHx: 07:53 elevated creatinine levels; Anxiety; Asthma; Crohn's Disease; depressive disorder; mb9 diabetes mellitus; elevated liver enzymes; Hyperlipidemia; Hypertension; spinal stenosis; ulcerative colitis; - PSHx: 07:53 Cholecystectomy; intestinal Surgery; mb9 - Immunization history:: Adult Immunizations up to date. - Infectious Disease History:: Denies. - Social history:: Smoking status: Patient denies any tobacco usage or history of. Screenin:55 [facility] [place] ED Fall Risk Assessment (Adult) History of falling in the last 3 months, mb9 including since admission Yes- fall prone (multiple falls) (3 pts) Confusion or Disorientation No (0 pts) Intoxicated or Sedated No (0 pts) Impaired Gait Yes (1 pt) Mobility Assist Device Used Yes (1 pt) Altered Elimination No (0 pt) Score/Fall Risk Level 3 or more points = High Risk Oriented to surroundings, Maintained a safe environment, Educated pt \\T\\ family on fall prevention, incl call for assistance when getting out of bed. Abuse screen: Denies injuries from another. Abuse screen: Denies threats or abuse. Nutritional screening: No deficits noted. Tuberculosis screening: No symptoms or risk factors identified. Assessment: 07:55 Reassessment: see triage assessment. mb9 09:07 Reassessment: Patient appears in no apparent distress at this time. Patient and/or mb9 family updated on plan of care and expected duration. Pain level reassessed. Patient is alert, oriented x 3, equal unlabored respirations, skin warm/dry/pink. Patient states feeling better. Patient states symptoms have improved. 09:51 Reassessment: Patient appears in no apparent distress at this time. No changes from mb9 previously documented assessment. Patient and/or family updated on plan of care and expected duration. Pain level reassessed. Patient is alert, oriented x 3, equal unlabored respirations, skin warm/dry/pink. Vital Signs: 07:51 BP 129 / 98; Pulse 101; Resp 16; Temp 98; Pulse Ox 100% ; Weight 76.2 kg; Height 5 ft. mb9 3 in. ; Pain 10/10; 08:26 Pulse 98; ec2 09:06 BP 153 / 107; Pulse 90; Resp 15; Pulse Ox 96% on R/A; mb9 09:51 BP 164 / 99; Pulse 95; Resp 18; Pulse Ox 97% on R/A; mb9 07:51 Body Mass Index 29.76 (76.20 kg, 160.02 cm) mb9 07:51 Pain Scale: Adult mb9 ED Course: 07:51 Patient arrived in ED. mb9 07:51 Marion Cueva, RN is Primary Nurse. mb9 07:51 Brad Koroma MD is Attending Physician. ec2 07:53 Triage completed. mb9 07:55 Arm band placed on. mb9 07:56 Bed in low position. Call light in reach. Side rails up X 1. Provided Education on: mb9 press call light if needing anything. Client placed on continuous cardiac and pulse oximetry monitoring. NIBP monitoring applied. front desk monitor on. 07:56 No provider procedures requiring assistance completed. mb9 08:10 Missed attempt(s): 24 gauge in right hand. Bleeding controlled, band aid applied, mb9 catheter tip intact. 08:30 Accessed peripheral vein via ultrasound, utilizing dynamic ultrasound technique 20g mb9 left AC using ,sterile technique, per hospital protocol. Clean \\T\\ dry. Dressing intact. Good blood return. Flushes easily. 08:31 Initial lab(s) drawn, by me, sent to lab. EKG done, by ED staff, reviewed by Brad Koroma MD. 08:58 XRAY Chest (1 view) In Process Unspecified. EDMS 09:34 IV discontinued, intact, bleeding controlled, No redness/swelling at site. Pressure mb9 dressing applied. Administered Medications: 08:30 Drug: Diazepam IVP 10 mg IVP once Route: IVP; Site: left antecubital; mb9 09:52 Follow up: Response: No adverse reaction mb9 08:30 Drug: NS 0.9% IV 1000 ml IV at 1000 ml once; to be given as a bolus over 60 minutes mb9 Route: IV; Rate: 1000 ml; Site: left antecubital; 09:52 Follow up: Response: No adverse reaction; IV Status: Completed infusion mb9 Medication: 07:56 VIS not applicable for this client. mb9 Outcome: 09:21 Discharge ordered by . ec2 09:52 Discharged to home ambulatory, mb9 09:52 Condition: stable 09:52 Discharge instructions given to patient, Instructed on discharge instructions, follow up and referral plans. Demonstrated understanding of instructions, medications, 09:52 Patient left the ED. mb9 Signatures: Dispatcher [employer] Marion Langston RN RN mb9 Brad Koroma MD MD ec2
--- NOTE | 2024-06-30 09:30 | RAD REPORT ---
Procedure: Chest Single View HISTORY: Chest pain COMPARISON: April 2024 FINDINGS: Mild reticular lung opacities bilaterally unchanged No significant pleural effusion noted. The heart is normal size. IMPRESSION: Mild bilateral reticular lung opacities can be seen in infection or inflammation
== END 2024-06-30 09:52 | disposition home or self-care (01) ==
LOC: ER 07:49
DX: F41.1 Generalized anxiety disorder (principal); E11.9 Type 2 diabetes mellitus without complications
CPT/HCPCS: 93005; 85025; 80048; 36415; 85610; 84484; 71045; J3360; J7030

== ENCOUNTER 2024-07-02 10:03 | Emergency (ER) | payer OTHER ==
[2024-07-02] MEDS ORDERED: NA CHLORIDE 0.9% 1,000 ML ONE (10:36)
[2024-07-02] MEDS ORDERED: DIAZEPAM 10 MG/2 ML INJ SYRINGE ONE (10:36)
--- NOTE | 2024-07-02 11:00 | RAD REPORT ---
Procedure: Chest Single View HISTORY: Dizziness and headache COMPARISON: April 2024 FINDINGS: The lungs appear clear of acute infiltrate. No significant pleural effusion noted. The heart is normal size. IMPRESSION: No acute abnormality is displayed.
[2024-07-02 12:24] LABS: Absolute Basophils 0.1 K/uL (0-0.5); Absolute Eosinophils 0.1 K/uL (0-0.5); Absolute Lymphocytes (CBC) 2.2 K/uL (0.7-4.9); Absolute Monocytes 0.8 K/uL (0.1-1.3); Absolute Neutrophil 3.3 K/uL (1.8-8.0); Basophils % 1.1 % (0-1.3); Hematocrit 40.8 % (39.6-49.0); Hemoglobin 13.2 g/dL (13.6-17.9); Lymphocytes % 34.3 % (15.3-44.8); MCH 28.8 pg (27.0-35.0); MCHC 32.4 g/dL (32.0-36.0); MCV 89.1 fL (80-100); MPV 6.4 fL (7.6-11.3); Monocytes % 11.6 % (3.3-12.3); Nucleated Red Blood Cells % 0.1 % (0-0); Platelets 263 thou/uL (152-406); RBC Red Blood Cell Count 4.58 M/uL (4.33-5.43); Red Cell Distribution Width 16.7 % (12.1-15.2)
[2024-07-02 12:49] LABS: ALT/SGPT 41 U/L (16-61); AST/SGOT 22 U/L (15-37); Albumin 3.4 g/dL (3.4-5.0); Albumin/Globulin Ratio 0.9 (1.1-1.8); Alkaline Phosphatase 75 U/L (45-117); Anion Gap 6.5 mEq/L (5.0-15.0); BUN Blood Urea Nitrogen 9 mg/dL (7-18); Bicarbonate 25 mEq/L (21-32); Bilirubin Total 0.3 mg/dL (0.2-1.0); Globulin 3.6 g/dL (2.3-3.5); Glomerular Filtration Rate 92 ml/min (=/>90); Glucose Level 86 mg/dL (74-106); Potassium 3.5 mEq/L (3.5-5.1); Sodium Level 140 mEq/L (136-145); Thyroid Stimulating Hormone 0.898 uIU/mL (0.358-3.740); Troponin High Sensitivity 4.7 pg/mL (<58.9)
[2024-07-02 12:54] LABS: Bilirubin Direct < 0.2 mg/dL (0-0.2); Bilirubin Indirect, Calculated 0.1 mg/dL (0.2-0.8)
[2024-07-02 12:56] LABS: Blood Morphology Comment NOT SEEN (NOT SEEN); Platelet Estimate ADEQ; White Blood Cell Scan OK (OK)
--- NOTE | 2024-07-02 13:11 | EDPHYS ---
Physician Documentation [facility] Name: Piter Iglesias Age: 59 yrs Sex: Male : 1965 Arrival Date: 07/02/2024 Time: 10:03 Bed 20 Private MD: ED Physician Thomas Smith HPI: 07/02 11:18 This 59 yrs old Black Male presents to ER via EMS with complaints of General Weakness - rt light headedness, shortness of breath. 11:18 Patient presents to the ED with a lightheadedness, mild shortness of breath has been rt present for the past several days. Patient was seen in the ED on Monday for similar symptoms, had negative workup. States that the symptoms have persisted. Denies other acute complaints at this time, symptoms are moderate in severity, no other aggravating or alleviating factors.. Historical: - Allergies: 10:12 Nuts; ap3 - PMHx: 10:12 elevated creatinine levels; Anxiety; Asthma; Crohn's Disease; depressive disorder; ap3 diabetes mellitus; elevated liver enzymes; Hyperlipidemia; Hypertension; spinal stenosis; ulcerative colitis; - PSHx: 10:12 Cholecystectomy; intestinal Surgery; ap3 - Immunization history:: Adult Immunizations unknown. - Infectious Disease History:: Denies. - Social history:: Smoking status: Patient denies any tobacco usage or history of. - Family history:: not pertinent. ROS: 11:18 Constitutional: Negative for fever, chills, and weight loss, Cardiovascular: Negative rt for chest pain, palpitations, and edema, Abdomen/GI: Negative for abdominal pain, nausea, vomiting, diarrhea, and constipation, MS/Extremity: Negative for injury and deformity, Skin: Negative for injury, rash, and discoloration, 11:18 Respiratory: Positive for shortness of breath, Negative for cough, 11:18 Neuro: Positive for near syncope, Negative for loss of consciousness, Exam: 11:18 Constitutional: This is a well developed, well nourished patient who is awake, alert, rt and in no acute distress. Head/Face: Normocephalic, atraumatic. Chest/axilla: Normal chest wall appearance and motion. Nontender with no deformity. No lesions are appreciated. Cardiovascular: Regular rate and rhythm with a normal S1 and S2. No gallops, murmurs, or rubs. Normal PMI, no JVD. No pulse deficits. Respiratory: Lungs have equal breath sounds bilaterally, clear to auscultation and percussion. No rales, rhonchi or wheezes noted. No increased work of breathing, no retractions or nasal flaring. Abdomen/GI: Soft, non-tender, with normal bowel sounds. No distension or tympany. No guarding or rebound. No evidence of tenderness throughout. Skin: Warm, dry with normal turgor. Normal color with no rashes, no lesions, and no evidence of cellulitis. MS/ Extremity: Pulses equal, no cyanosis. Neurovascular intact. Full, normal range of motion. Neuro: Awake and alert, GCS 15, oriented to person, place, time, and situation. Cranial nerves II-XII grossly intact. Motor strength 5/5 in all extremities. Sensory grossly intact. Cerebellar exam normal. Normal gait. 11:18 ECG was reviewed by the Attending Physician. Vital Signs: 10:09 BP 141 / 106; Pulse 91; Resp 17; Temp 97.7; Pulse Ox 100% ; Weight 75.3 kg; Height 5 ap3 ft. 3 in. ; 12:41 BP 126 / 96; Pulse 79; Pulse Ox 97% on R/A; Pain 0/10; tm6 10:09 Body Mass Index 29.41 (75.30 kg, 160.02 cm) ap3 12:41 Pain Scale: Adult tm6 MDM: 10:09 Medical Screening Exam initiated rt 13:49 Differential Diagnosis Dysrhythmia, dehydration, panic attack. Data reviewed: vital rt signs, nurses notes, lab test result(s), EKG, radiologic studies. Consideration of Admission/Observation Escalation of care including admission/observation considered. Stable vital signs, unremarkable EKG, stable labs, symptoms improved with Valium, no indications for admission at this time, stable for outpatient care.. I considered the following discharge prescriptions or medication management in the emergency department Medications were administered in the Emergency Department. See MAR. Independent interpretation of the following test(s) in the Emergency Department X-Ray: My interpretation is No consolidation seen on interpretation of x-ray images. Care significantly affected by the following chronic conditions: Diabetes. Counseling: I had a detailed discussion with the patient and/or guardian regarding the historical points, exam findings, and any diagnostic results supporting the discharge/admit diagnosis, lab results, radiology results, the need for outpatient follow up. Response to treatment: the patient's symptoms have markedly improved after treatment. 07/02 10:14 Order name: Basic Metabolic Panel; Complete Time: 13:06 rt 07/02 10:14 Order name: CBC with Diff; Complete Time: 13:06 rt 07/02 10:14 Order name: LFT's; Complete Time: 13:06 rt 07/02 10:14 Order name: Troponin HS; Complete Time: 13:06 rt 07/02 10:14 Order name: TSH; Complete Time: 13:06 rt 07/02 12:56 Order name: CBC Smear Scan; Complete Time: 13:06 EDMS 07/02 10:14 Order name: XRAY Chest (1 view); Complete Time: 11:11 rt 07/02 10:14 Order name: EKG; Complete Time: 10:15 rt 07/02 10:14 Order name: Cardiac monitoring; Complete Time: 10:15 rt 07/02 10:14 Order name: EKG - Nurse/Tech; Complete Time: 10:45 rt 07/02 10:14 Order name: IV Saline Lock; Complete Time: 11:49 rt 07/02 10:14 Order name: Labs collected and sent; Complete Time: 11:49 rt 07/02 10:14 Order name: O2 Per Protocol; Complete Time: 10:15 rt 07/02 10:14 Order name: O2 Sat Monitoring; Complete Time: :15 rt 07/02 11:55 Order name: Labs - recollect needed: recollect green and lavender top; Complete Time: bd 12:53 EC:18 Rate is 83 beats/min. Rhythm is regular, Normal Sinus Rhythm with No ectopy, LVH rt present. Left axis deviation noted. KS interval is normal. QRS interval is normal. QT interval is normal. No Q waves. No ST changes noted. Interpreted by me. Administered Medications: 11:54 Drug: Diazepam IVP 10 mg IVP once Route: IVP; Site: left forearm; tm6 13:48 Follow up: Response: No adverse reaction; Anxiety decreased ap3 11:54 Drug: NS 0.9% IV 1000 ml IV at 1 bolus Per protocol; to be given as a bolus over 60 tm6 minutes Route: IV; Rate: 1 bolus; Site: left forearm; 13:48 Follow up: IV Status: Completed infusion; IV Intake: 1000ml ap3 Disposition Summary: 07/02/24 13:10 Discharge Ordered Notes: Location: Home rt Condition: Stable rt Diagnosis - Lightheadedness rt Followup: rt - With: Private Physician - When: 2 - 3 days - Reason: Discharge Instructions: - Discharge Summary Sheet rt - Dizziness rt Forms: - Medication Reconciliation Form rt - Antibiotic Education rt - Prescription Opioid Use rt - Patient Portal Instructions rt - Leadership Thank You Letter rt Signatures: Dispatcher [employer] EDMS Ame Cain Amanda, RN RN ap3 Thomas Smith MD MD rt Estuardo Alonzo RN RN tm6 Corrections: (The following items were deleted from the chart) 10:15 10:14 BASIC METABOLIC PANEL+C.LAB.BRZ ordered. EDMS EDMS 10:15 10:14 CBC+H.LAB.BRZ ordered. EDMS EDMS 10:15 10:14 HEPATIC FUNCTION+C.LAB.BRZ ordered. EDMS EDMS 10:15 10:14 Troponin High Sensitivity+C.LAB.BRZ ordered. EDMS EDMS 10:15 10:14 THYROID STIMULAT HORMONE+C.LAB.BRZ ordered. EDMS EDMS
--- NOTE | 2024-07-02 13:11 | ER ---
Nurse's Notes [facility] Name: Piter Iglesias Age: 59 yrs Sex: Male : 1965 Arrival Date: 07/02/2024 Time: 10:03 Bed 20 Private MD: Diagnosis: Lightheadedness Presentation: 07/02 10:09 Chief complaint: Patient states: he has been light headed, and weak with mild shortness ap3 of breath since his last visit Monday. Coronavirus screen: At this time, the client does not indicate any symptoms associated with coronavirus-19. Ebola Screen: No symptoms or risks identified at this time. Initial Sepsis Screen: Does the patient meet any 2 criteria? No. Patient's initial sepsis screen is negative. Does the patient have a suspected source of infection? No. Patient's initial sepsis screen is negative. Risk Assessment: Do you want to hurt yourself or someone else? Patient reports no desire to harm self or others. Onset of symptoms is unknown. 10:09 Method Of Arrival: EMS: [facility] ap3 10:09 Acuity: AISHA 3 ap3 Triage Assessment: 10:12 General: Appears in no apparent distress. Behavior is cooperative, anxious. Pain: ap3 Complains of pain in back Is chronic. Neuro: Level of Consciousness is awake, alert, obeys commands, Oriented to person, place, time, situation. Cardiovascular: Patient's skin is warm and dry. Respiratory: Airway is patent Respiratory effort is even, unlabored, Respiratory pattern is regular, symmetrical. Historical: - Allergies: 10:12 Nuts; ap3 - PMHx: 10:12 elevated creatinine levels; Anxiety; Asthma; Crohn's Disease; depressive disorder; ap3 diabetes mellitus; elevated liver enzymes; Hyperlipidemia; Hypertension; spinal stenosis; ulcerative colitis; - PSHx: 10:12 Cholecystectomy; intestinal Surgery; ap3 - Immunization history:: Adult Immunizations unknown. - Infectious Disease History:: Denies. - Social history:: Smoking status: Patient denies any tobacco usage or history of. - Family history:: not pertinent. Screenin:13 Abuse screen: Denies threats or abuse. Nutritional screening: No deficits noted. ap3 Tuberculosis screening: No symptoms or risk factors identified. 10:57 [facility] ED Fall Risk Assessment (Adult) History of falling in the last 3 months, tm6 including since admission No falls in past 3 months (0 pts) Confusion or Disorientation No (0 pts) Intoxicated or Sedated No (0 pts) Impaired Gait No (0 pts) Mobility Assist Device Used No (0 pt) Altered Elimination No (0 pt) Score/Fall Risk Level 0 - 2 = Low Risk Oriented to surroundings, Maintained a safe environment, Educated pt \T\ family on fall prevention, incl call for assistance when getting out of bed. Assessment: 10:57 General: Appears in no apparent distress. Behavior is calm, cooperative. Pain: Denies tm6 pain. Neuro: Level of Consciousness is awake, alert, obeys commands, Oriented to person, place, time, situation. Cardiovascular: Reports lightheadedness, since Monday. Respiratory: Reports shortness of breath since Monday Airway is patent Respiratory effort is even, unlabored, Respiratory pattern is regular, symmetrical. GI: No signs and/or symptoms were reported involving the gastrointestinal system. Abdomen is flat, non-distended. : No signs and/or symptoms were reported regarding the genitourinary system. EENT: No signs and/or symptoms were reported regarding the EENT system. Derm: No signs and/or symptoms reported regarding the dermatologic system. Musculoskeletal: No signs and/or symptoms reported regarding the musculoskeletal system. 12:41 Reassessment: Patient and/or family updated on plan of care and expected duration. Pain tm6 level reassessed. Patient is alert, oriented x 3, equal unlabored respirations, skin warm/dry/pink. Vital Signs: 10:09 BP 141 / 106; Pulse 91; Resp 17; Temp 97.7; Pulse Ox 100% ; Weight 75.3 kg; Height 5 ap3 ft. 3 in. ; 12:41 BP 126 / 96; Pulse 79; Pulse Ox 97% on R/A; Pain 0/10; tm6 10:09 Body Mass Index 29.41 (75.30 kg, 160.02 cm) ap3 12:41 Pain Scale: Adult tm6 ED Course: 10:08 Patient arrived in ED. bd 10:09 Thomsa Smith MD is Attending Physician. rt 10:12 Triage completed. ap3 10:13 Arm band placed on right wrist. ap3 10:13 Patient has correct armband on for positive identification. Bed in low position. Call ap3 light in reach. Side rails up X2. Client placed on continuous cardiac and pulse oximetry monitoring. NIBP monitoring applied. case monitor on. Pulse ox on. NIBP on. 10:36 XRAY Chest (1 view) In Process Unspecified. EDMS 10:44 Estuardo Alonzo, RN is Primary Nurse. tm6 10:45 EKG done, by ED staff, reviewed by Thomas Smith MD. tm6 10:57 Provided Education on: use of call valencia. tm6 11:20 Missed attempt(s): 24 gauge in right hand. Bleeding controlled, band aid applied, iw catheter tip intact. 11:30 Initial lab(s) drawn, by me, sent to lab. Inserted saline lock: 22 gauge in left iw forearm, using aseptic technique. Blood collected. Flushed with 10 mL NS. 13:47 No provider procedures requiring assistance completed. IV discontinued, intact, ap3 bleeding controlled, No redness/swelling at site. Pressure dressing applied. Administered Medications: 11:54 Drug: Diazepam IVP 10 mg IVP once Route: IVP; Site: left forearm; tm6 13:48 Follow up: Response: No adverse reaction; Anxiety decreased ap3 11:54 Drug: NS 0.9% IV 1000 ml IV at 1 bolus Per protocol; to be given as a bolus over 60 tm6 minutes Route: IV; Rate: 1 bolus; Site: left forearm; 13:48 Follow up: IV Status: Completed infusion; IV Intake: 1000ml ap3 Medication: 10:57 VIS not applicable for this client. tm6 Intake: 13:48 IV: 1000ml; Total: 1000ml. ap3 Outcome: 13:10 Discharge ordered by . rt 13:48 Discharged to home ambulatory, ap3 13:48 Condition: good 13:48 Discharge instructions given to patient, Instructed on discharge instructions, follow up and referral plans. Demonstrated understanding of instructions, follow-up care, 13:48 Patient left the ED. ap3 Signatures: Dispatcher [employer] EDGA Ame Cain Irene, RN Gina Abbasi RN RN ap3 Thomas Smith MD MD rt Estuardo Alonzo, YUSUF GOLDBERG tm6
[2024-07-02 15:16] VITALS: BP 141/106; TEMP 97.7; O2SAT 100
--- NOTE | 2024-07-04 11:58 | EKG ---
Test Date: 2024-07-02 Test Time: 10:43:43 Evaluator: TIM MEASUREMENT RESULTS: Intervals: Rate: 83 MN: 148 QRSD: 62 QT: 340 QTc: 399 Bayard: P: 53 MN: 148 QRS: -19 T: -13 INTERPRETIVE STATEMENTS: Normal sinus rhythm Voltage criteria for left ventricular hypertrophy Cannot rule out Septal infarct, age undetermined Abnormal ECG Compared to ECG 06/30/2024 08:21:05 Left ventricular hypertrophy now present Myocardial infarct finding now present Electronically Signed On 07-04-24 11:53:17 CDT by Aba Hernandez
== END 2024-07-02 13:48 | disposition home or self-care (01) ==
LOC: ER 10:03
DX: R42 Dizziness and giddiness (principal); R53.1 Weakness; E11.9 Type 2 diabetes mellitus without complications; I10 Essential (primary) hypertension; F41.9 Anxiety disorder, unspecified
CPT/HCPCS: 93005; 85025; 80048; 36415; 80076; 84443; 84484; 71045; J3360; J7030; 96361; 96374; 99285

== ENCOUNTER 2024-07-19 00:10 | Emergency (ER) | payer OTHER ==
--- NOTE | 2024-07-19 00:53 | EDPHYS ---
Physician Documentation [facility] Name: Piter Iglesias Age: 59 yrs Sex: Male : 1965 Arrival Date: 07/19/2024 Time: 00:10 Bed 8 Private MD: ED Physician Thomas Smith HPI: 07/19 00:26 This 59 yrs old Black Male presents to ER via EMS with complaints of Leg Pain. sb4 00:26 Patient reports pain in bilateral ankles and knees. Reports a history of arthritis and sb4 pain worsens with weather changes and after walking. States that he walked a lot yesterday. States he has taken his gabapentin today without significant improvement in symptoms. Denies any redness, warmth, numbness, tingling. Historical: - Allergies: 00:22 Nuts; al5 - PMHx: 00:22 elevated creatinine levels; Anxiety; Asthma; Crohn's Disease; depressive disorder; al5 diabetes mellitus; elevated liver enzymes; Hyperlipidemia; Hypertension; spinal stenosis; ulcerative colitis; - PSHx: 00:22 Cholecystectomy; intestinal Surgery; al5 - Immunization history:: Adult Immunizations up to date. - Infectious Disease History:: Denies. - Social history:: Smoking status: Patient denies any tobacco usage or history of. ROS: 00:26 Constitutional: Negative for fever, chills, and weight loss, sb4 00:26 MS/extremity: Positive for pain, of the right leg and left leg, 00:26 All other systems are negative, Exam: 00:26 Constitutional: This is a well developed, well nourished patient who is awake, alert, sb4 and in no acute distress. Head/Face: Normocephalic, atraumatic. Eyes: Extra-ocular motions intact. Periorbital areas with no swelling, redness, or edema. Skin: Warm, dry with normal turgor. Normal color with no rashes, no lesions, and no evidence of cellulitis. MS/ Extremity: Pulses equal, no cyanosis. Neurovascular intact. Full, normal range of motion. Neuro: Awake and alert, GCS 15, oriented to person, place, time, and situation. Motor strength 5/5 in all extremities. Sensory grossly intact. 00:39 Special observations: complaints out of proportion to exam, requesting ice cream, sb4 00:56 Cardiovascular: Edema: is not appreciated, sb4 Vital Signs: 00:20 BP 135 / 94; Pulse 85; Resp 18; Temp 98.5; Pulse Ox 98% on R/A; Weight 77.11 kg; Height al5 5 ft. 3 in. ; Pain 10/10; 01:33 BP 131 / 84; Pulse 85; Resp 16 S; Pulse Ox 98% on R/A; ha1 00:20 Body Mass Index 30.11 (77.11 kg, 160.02 cm) al5 00:20 Pain Scale: Adult al5 MDM: 00:12 Medical Screening Exam initiated sb4 00:26 Data reviewed: vital signs, nurses notes, EMS record, and as a result, I will discharge sb4 patient. Counseling: I had a detailed discussion with the patient and/or guardian regarding the historical points, exam findings, and any diagnostic results supporting the discharge/admit diagnosis, the presence of at least one elevated blood pressure reading (>120/80) during this emergency department visit, the need for outpatient follow up, for definitive care, to return to the emergency department if symptoms worsen or persist or if there are any questions or concerns that arise at home. Administered Medications: 01:17 Not Given (Patient Refused): [id number] mg IM once rt 01:17 Not Given (Patient Refused): dexamethasone 10 mg IM once rt 01:18 Drug: predniSONE PO 40 mg PO once Route: PO; ha1 01:33 Follow up: Response: No adverse reaction ha1 01:23 Not Given (Patient Refused): mg PO once ha1 Disposition: 02:09 Co-signature as Attending Physician, Thomas Smith MD I reviewed the patient's care rt provided by the Advanced Practice Provider and agree with the diagnosis and treatment plan. Disposition Summary: 07/19/24 00:53 Discharge Ordered Notes: Location: Home sb4 Problem: new sb4 Symptoms: have improved sb4 Condition: Stable sb4 Diagnosis - Pain in left leg sb4 - Pain in right leg sb4 Followup: sb4 - With: Private Physician - When: 2 - 3 days - Reason: Recheck today's complaints, Re-evaluation by your physician Discharge Instructions: - Discharge Summary Sheet sb4 - Arthritis, [id number] sb4 - Joint Pain, [id number] sb4 Forms: - Patient Portal Instructions sb4 - Leadership Thank You Letter sb4 Signatures: Cristina Radford, RN RN ha1 Maria Luisa Auguste PA-C PA-C sb4 Thomas Smith MD MD rt Gina Early RN RN al5
--- NOTE | 2024-07-19 00:53 | ER ---
Nurse's Notes [facility] Name: Piter Iglesias Age: 59 yrs Sex: Male : 1965 Arrival Date: 07/19/2024 Time: 00:10 Bed 8 Private MD: Diagnosis: Pain in left leg;Pain in right leg Presentation: 07/19 00:20 Chief complaint: Patient states: c/o bilateral leg pain and swelling since 2100 this al5 evening. Coronavirus screen: At this time, the client does not indicate any symptoms associated with coronavirus-19. Ebola Screen: No symptoms or risks identified at this time. Initial Sepsis Screen: Does the patient meet any 2 criteria? No. Patient's initial sepsis screen is negative. Does the patient have a suspected source of infection? No. Patient's initial sepsis screen is negative. Risk Assessment: Do you want to hurt yourself or someone else? Patient reports no desire to harm self or others. Onset of symptoms was July 19, 2024. 00:20 Method Of Arrival: EMS: [facility] al5 00:20 Acuity: AISHA 3 al5 Triage Assessment: 00:22 General: Appears in no apparent distress. uncomfortable, Behavior is calm, cooperative. al5 Pain: Complains of pain in right leg and left leg Pain currently is 10 out of 10 on a pain scale. EENT: No signs and/or symptoms were reported regarding the EENT system. Neuro: Level of Consciousness is awake, alert, obeys commands, Oriented to person, place, time, situation. Cardiovascular: Capillary refill < 3 seconds Patient's skin is warm and dry. Respiratory: Airway is patent Respiratory effort is even, unlabored, Respiratory pattern is regular, symmetrical. GI: No signs and/or symptoms were reported involving the gastrointestinal system. : No signs and/or symptoms were reported regarding the genitourinary system. Derm: Skin is intact, is healthy with good turgor. Derm: Skin is pink, warm \T\ dry. normal. Musculoskeletal: Reports pain in right leg and left leg Pain is 10 out of 10 on a pain scale. Historical: - Allergies: 00:22 Nuts; al5 - PMHx: 00:22 elevated creatinine levels; Anxiety; Asthma; Crohn's Disease; depressive disorder; al5 diabetes mellitus; elevated liver enzymes; Hyperlipidemia; Hypertension; spinal stenosis; ulcerative colitis; - PSHx: 00:22 Cholecystectomy; intestinal Surgery; al5 - Immunization history:: Adult Immunizations up to date. - Infectious Disease History:: Denies. - Social history:: Smoking status: Patient denies any tobacco usage or history of. Screenin:23 [facility] ED Fall Risk Assessment (Adult) History of falling in the last 3 months, al5 including since admission No falls in past 3 months (0 pts) Confusion or Disorientation No (0 pts) Intoxicated or Sedated No (0 pts) Impaired Gait No (0 pts) Mobility Assist Device Used No (0 pt) Altered Elimination No (0 pt) Score/Fall Risk Level 0 - 2 = Low Risk Oriented to surroundings, Maintained a safe environment, Hourly rounding (assess needs \T\ fall precautionary measures) done. Abuse screen: Denies threats or abuse. Denies injuries from another. Nutritional screening: No deficits noted. Tuberculosis screening: No symptoms or risk factors identified. Assessment: 00:23 Reassessment: see triage assessment. al5 01:33 Reassessment: Patient and/or family updated on plan of care and expected duration. Pain ha1 level reassessed. Patient is alert, oriented x 3, equal unlabored respirations, skin warm/dry/pink. Vital Signs: 00:20 BP 135 / 94; Pulse 85; Resp 18; Temp 98.5; Pulse Ox 98% on R/A; Weight 77.11 kg; Height al5 5 ft. 3 in. ; Pain 10/10; 01:33 BP 131 / 84; Pulse 85; Resp 16 S; Pulse Ox 98% on R/A; ha1 00:20 Body Mass Index 30.11 (77.11 kg, 160.02 cm) al5 00:20 Pain Scale: Adult al5 ED Course: 00:12 Patient arrived in ED. jj6 00:12 Maria Luisa Auguste PA-C is PHCP. sb4 00:12 Thomas Smith MD is Attending Physician. sb4 00:20 Gina Early RN is Primary Nurse. al5 00:22 Triage completed. al5 00:23 Arm band placed on right wrist. Patient placed in the treatment room, on a stretcher. al5 00:24 Patient has correct armband on for positive identification. Bed in low position. Call al5 light in reach. Side rails up X2. Provided Education on: plan of care. 00:24 No provider procedures requiring assistance completed. al5 01:35 Patient did not have IV access during this emergency room visit. ha1 Administered Medications: 01:17 Not Given (Patient Refused): mg IM once rt 01:17 Not Given (Patient Refused): dexamethasone 10 mg IM once rt 01:18 Drug: predniSONE PO 40 mg PO once Route: PO; ha1 01:33 Follow up: Response: No adverse reaction ha1 01:23 Not Given (Patient Refused): mg PO once ha1 Medication: 00:23 VIS not applicable for this client. al5 Outcome: 00:53 Discharge ordered by . sb4 01:34 Discharged to home ambulatory, ha1 01:34 Condition: stable 01:34 Discharge instructions given to patient, Instructed on discharge instructions, follow up and referral plans. Demonstrated understanding of instructions, follow-up care, 01:35 Patient left the ED. ha1 Signatures: Geri Alonzo Heidy, RN RN ha1 Maria Luisa Auguste, PA-C PA-C [id number] Gina Early RN RN al5 Thomas Smith MD rt
[2024-07-19] MEDS ORDERED: KETOROLAC 30 MG/ML INJ ONE (01:05)
[2024-07-19] MEDS ORDERED: dexAMETHasone 10 MG/ML VIAL ONE (01:05)
[2024-07-19] MEDS ORDERED: IBUPROFEN 400 MG TAB ONE (01:18)
[2024-07-19] MEDS ORDERED: predniSONE 20 MG TAB ONE (01:18)
[2024-07-19 01:40] VITALS: TEMP 98.5; O2SAT 98
[2024-07-19 01:41] VITALS: BP 131/84
== END 2024-07-19 01:35 | disposition home or self-care (01) ==
LOC: ER 00:10
DX: M79.605 Pain in left leg (principal); M79.604 Pain in right leg
CPT/HCPCS: 99283; J7512; J1100

== ENCOUNTER 2024-09-11 12:12 | Emergency (ER) | payer MEDICAID, OTHER ==
[2024-09-11 12:51] LABS: Absolute Eosinophils 0.1 K/uL (0-0.5); Absolute Monocytes 0.5 K/uL (0.1-1.3); Absolute Neutrophil 2.5 K/uL (1.8-8.0); Basophils % 0.2 % (0-1.3); Eosinophils % 2.2 % (0-4.4); Hematocrit 36.7 % (39.6-49.0); Hemoglobin 11.9 g/dL (13.6-17.9); Lymphocytes % 38.6 % (15.3-44.8); MCH 28.4 pg (27.0-35.0); MCHC 32.4 g/dL (32.0-36.0); MCV 87.7 fL (80-100); MPV 6.3 fL (7.6-11.3); Monocytes % 10.6 % (3.3-12.3); Neutrophils % 48.4 % (41.7-73.7); Nucleated Red Blood Cells % 0.1 % (0-0); Platelets 290 thou/uL (152-406); RBC Red Blood Cell Count 4.18 M/uL (4.33-5.43); Red Cell Distribution Width 14.3 % (12.1-15.2)
[2024-09-11] MEDS ORDERED: ONDANSETRON 4 MG/2 ML VIAL ONE (12:58)
[2024-09-11] MEDS ORDERED: MORPHINE 4 MG/ML SYR ONE (12:58)
[2024-09-11 13:07] LABS: Albumin 3.5 g/dL (3.4-5.0); Bilirubin Total 0.5 mg/dL (0.2-1.0); Globulin 3.4 g/dL (2.3-3.5); Protein, Total 6.9 g/dL (6.4-8.2)
[2024-09-11] MEDS ORDERED: NA CHLORIDE 0.9% 250 ML ONE (13:41)
[2024-09-11 13:44] LABS: Specific Gravity 1.007 (1.005-1.030); Sqamous Epithelial None Seen /HPF (None Seen); Urine Bacteria None Seen /HPF (<20); Urine Bilirubin NEGATIVE (Negative); Urine Blood Negative (Negative); Urine Clarity Clear (Clear); Urine Color Colorless (Yellow); Urine Culture Reflex Order NOT NEEDED; Urine Glucose NEGATIVE (Negative); Urine Ketones NEGATIVE (Negative); Urine Microscopic Reflex YN ORDER UMIC; Urine Nitrite NEGATIVE (Negative); Urine Protein NEGATIVE (Negative); Urine RBC <5 /HPF (None Seen); Urine Urobilinogen Normal (Normal); Urine WBC <5 /HPF (<5)
--- NOTE | 2024-09-11 13:54 | RAD REPORT ---
EXAMINATION: CT Abdomen Pelvis W Contrast CLINICAL INDICATION: Male, 59 years old. ABD PAIN TECHNIQUE: CT abdomen and pelvis was performed, after the administration of IV [facility] Axial, sagittal and coronal reconstructions were obtained. One or more of the following dose reduction techniques were used: Automated exposure control, adjustment of the mA and k V according to patient size, and iterative reconstruction. Unless otherwise specified, incidental findings do not require dedicated imaging follow-up. COMPARISON: 08/05/2024 FINDINGS: LOWER CHEST: The visualized lung bases are clear. LIVER: Normal in size and contour. No focal lesion. BILIARY SYSTEM: Status post cholecystectomy. SPLEEN: Normal size. No focal lesion. PANCREAS: No mass, ductal dilation, or carline-pancreatic fluid. ADRENALS: Normal; no mass. KIDNEYS: Normal size and contour. No hydronephrosis. URINARY BLADDER: Unremarkable. GASTROINTESTINAL TRACT: No evidence of free air, significant intra-abdominal free fluid, bowel obstru ction or abscess. Sequelae of distal colectomy with end-to-side anastomosis again seen. APPENDIX: Appendix surgically absent. LYMPH NODES: No lymphadenopathy. MUSCULOSKELETAL: Grade 1 spondylolisthesis again seen at L5-S1 with disc extrusion. No other acute or suspicious osseous abnormality. ADDITIONAL FINDINGS: None. IMPRESSION: No acute or concerning abnormalities seen in the abdomen or pelvis. Stable postoperative changes as a kieran.
--- NOTE | 2024-09-11 13:57 | ER ---
Nurse's Notes [facility] Name: Piter Iglesias Age: 59 yrs Sex: Male : 1965 Arrival Date: 09/11/2024 Time: 12:12 Bed 16 Private MD: Diagnosis: Abdominal pain, Generalized Presentation: 09/11 12:15 Chief complaint: EMS states: DIZZINESS AND GENERAL WEAKNESS TODAY WITH ABD PAIN AND db BACK PAIN FROM HOME. EMS GAVE ZOFRAN 4 MG INTRANASALLY. BG 102. Coronavirus screen: Client denies travel out of the [place] in the last 14 days. At this time, the client does not indicate any symptoms associated with coronavirus-19. Ebola Screen: Patient negative for fever greater than or equal to 101.5 degrees Fahrenheit, and additional compatible Ebola Virus Disease symptoms Patient denies exposure to infectious person. Patient denies travel to an Ebola-affected area in the 21 days before illness onset. No symptoms or risks identified at this time. Initial Sepsis Screen: Does the patient meet any 2 criteria? No. Patient's initial sepsis screen is negative. Does the patient have a suspected source of infection? No. Patient's initial sepsis screen is negative. Risk Assessment: Do you want to hurt yourself or someone else? Patient reports no desire to harm self or others. Onset of symptoms was September 11, 2024. 12:15 Method Of Arrival: EMS: [facility] db 12:15 Acuity: AISHA 3 db Triage Assessment: 12:21 General: Appears in no apparent distress. uncomfortable, Behavior is calm, cooperative. db Pain: Complains of pain in back and abdomen. Neuro: Level of Consciousness is awake, alert, obeys commands, Oriented to person, place, time, situation. Respiratory: Airway is patent Respiratory effort is even, unlabored, Respiratory pattern is regular, symmetrical. GI: Reports lower abdominal pain, upper abdominal pain, nausea. Historical: - Allergies: 12:21 Nuts; db - PMHx: 12:21 elevated creatinine levels; Anxiety; Crohn's Disease; depressive disorder; diabetes db mellitus; Asthma; elevated liver enzymes; Hyperlipidemia; Hypertension; spinal stenosis; ulcerative colitis; - PSHx: 12:21 Cholecystectomy; intestinal Surgery; db - Immunization history:: Adult Immunizations unknown. - Infectious Disease History:: Denies. - Social history:: Smoking status: Patient denies any tobacco usage or history of. Screenin:13 [facility] ED Fall Risk Assessment (Adult) History of falling in the last 3 months, db including since admission No falls in past 3 months (0 pts) Confusion or Disorientation No (0 pts) Intoxicated or Sedated No (0 pts) Impaired Gait No (0 pts) Mobility Assist Device Used No (0 pt) Altered Elimination No (0 pt) Score/Fall Risk Level 0 - 2 = Low Risk Oriented to surroundings, Maintained a safe environment. Abuse screen: Denies threats or abuse. Denies injuries from another. Nutritional screening: No deficits noted. Tuberculosis screening: No symptoms or risk factors identified. Assessment: 12:23 Reassessment: Patient appears in no apparent distress at this time. SEE TRIAGE FOR db INITIAL ASSESSMENT. 13:13 Reassessment: Patient appears in no apparent distress at this time. Patient and/or db family updated on plan of care and expected duration. Pain level reassessed. Patient is alert, oriented x 3, equal unlabored respirations, skin warm/dry/pink. General: Appears in no apparent distress. comfortable, Behavior is calm, cooperative. Neuro: Level of Consciousness is awake, alert, obeys commands, Oriented to person, place, time, situation. Respiratory: Airway is patent Respiratory effort is even, unlabored, Respiratory pattern is regular, symmetrical. 14:35 Reassessment: Patient appears in no apparent distress at this time. Patient and/or db family updated on plan of care and expected duration. Pain level reassessed. Patient is alert, oriented x 3, equal unlabored respirations, skin warm/dry/pink. Reassessment: Patient states feeling better. Patient states symptoms have improved. General: Appears in no apparent distress. comfortable. Vital Signs: 12:15 BP 139 / 98; Pulse 79; Resp 16; Temp 97.6; Pulse Ox 100% ; db 13:00 BP 118 / 90; Pulse 71; Resp 16; Pulse Ox 97% on R/A; Weight 81.65 kg; Height 5 ft. 3 db in. ; Pain 10/10; 14:00 BP 139 / 58; Pulse 77; Resp 16; Pulse Ox 97% ; db 13:00 Body Mass Index 31.89 (81.65 kg, 160.02 cm) db 13:00 Pain Scale: Adult db ED Course: 12:18 Patient arrived in ED. iw 12:18 Brad Koroma MD is Attending Physician. ec2 12:18 Kamini Orellana, RN is Primary Nurse. db 12:21 Triage completed. db 12:21 Arm band placed on Patient placed in an exam room. db 12:47 Initial lab(s) drawn, by me, sent to lab. Inserted saline lock: 22 gauge in left iw forearm, using aseptic technique. Blood collected. Flushed with 10 mL NS. 13:[address] via wheelchair. db 13:29 CT Abd/Pelvis - IV Contrast Only In Process Unspecified. EDMS 13:[address] moved [address] from [address]. db 14:49 Patient has correct armband on for positive identification. Bed in low position. Call db light in reach. Side rails up X 1. Provided Education on: DISCHARGE AND FOLLOWUP. Pulse ox on. NIBP on. Warm blanket given. Pillow given. 14:49 No provider procedures requiring assistance completed. IV discontinued, intact, db bleeding controlled, No redness/swelling at site. Administered Medications: 12:58 Drug: morphine IVP or IV 4 mg IVP once over 4 mins Route: IVP; Infused Over: 4 mins; db Site: left forearm; 13:42 Follow up: Response: No adverse reaction; Pain is decreased db 12:58 Drug: Ondansetron IVP 4 mg IVP once; over 2 minutes Route: IVP; Site: left forearm; db 13:42 Follow up: Response: No adverse reaction db 13:41 Drug: NS 0.9% IV 250 ml IV at bolus once; to be given as a bolus over 30 minutes Route: db IV; Rate: bolus; Site: left forearm; 14:51 Follow up: Response: No adverse reaction; IV Status: Completed infusion; IV Intake: db 250ml Medication: 14:49 VIS not applicable for this client. db Intake: 14:51 IV: 250ml; Total: 250ml. db Outcome: 13:57 Discharge ordered by . ec2 14:49 Discharged to home ambulatory, with family, db 14:49 Condition: stable 14:49 Discharge instructions given to patient, Instructed on discharge instructions, follow up and referral plans. Prescriptions given X 1, 14:52 Patient left the ED. db Signatures: Dispatcher [employer] EDMA Cely Sterling RN RN Kamini Duarte, RN RN Brad Fairbanks, MD MENEZES ec2
--- NOTE | 2024-09-11 13:57 | EDPHYS ---
Physician Documentation [facility] Name: Piter Iglesias Age: 59 yrs Sex: Male : 1965 Arrival Date: 09/11/2024 Time: 12:12 Bed 16 Private MD: ED Physician Brad Koroma HPI: 09/11 12:19 This 59 yrs old Black Male presents to ER via Unassigned with complaints of abd pain. ec2 12:22 Patient arrives today for evaluation of abdominal pain, distention as well as nausea ec2 and vomiting. History of ulcerative colitis, multiple bowel resections, complaining of worsening abdominal pain as well as some lightheadedness. Multiple bowel obstructions in the past, last bowel movement yesterday.. Historical: - Allergies: 12:21 Nuts; db - PMHx: 12:21 elevated creatinine levels; Anxiety; Crohn's Disease; depressive disorder; diabetes db mellitus; Asthma; elevated liver enzymes; Hyperlipidemia; Hypertension; spinal stenosis; ulcerative colitis; - PSHx: 12:21 Cholecystectomy; intestinal Surgery; db - Immunization history:: Adult Immunizations unknown. - Infectious Disease History:: Denies. - Social history:: Smoking status: Patient denies any tobacco usage or history of. ROS: 12:22 Constitutional: as per hpi ec2 Exam: 12:22 Constitutional: GEN: NAD Head: atraumatic Eyes: EOMI Ears: External ears are ec2 normal. CV: regular rate LUNGS: no respiratory distress ABD: Soft, generally tender, not guarding, not rigid SKIN: Well-healed surgical scars throughout the abdomen. MSK: no evidence of trauma Vital Signs: 12:15 BP 139 / 98; Pulse 79; Resp 16; Temp 97.6; Pulse Ox 100% ; db 13:00 BP 118 / 90; Pulse 71; Resp 16; Pulse Ox 97% on R/A; Weight 81.65 kg; Height 5 ft. 3 db in. ; Pain 10/10; 14:00 BP 139 / 58; Pulse 77; Resp 16; Pulse Ox 97% ; db 13:00 Body Mass Index 31.89 (81.65 kg, 160.02 cm) db 13:00 Pain Scale: Adult db MDM: 12:22 Medical Screening Exam initiated ec2 12:22 Data reviewed: vital signs, nurses notes. ED course: Patient arrives today for ec2 evaluation of abdominal pain and nausea and vomiting. Examination yields abdominal findings as above. Will obtain lab work, CT imaging and treat the patient's symptoms. Differential include processes such as bowel obstruction, ulcerative colitis flare, pancreatitis.. 13:55 ED course: Urine noninfectious, CT abdomen pelvis shows no acute intra-abdominal ec2 process. Will discharge home have the patient follow-up PCP. Return precautions given.. 09/11 12:19 Order name: CBC with Diff; Complete Time: 13:35 ec2 09/11 12:19 Order name: CMP; Complete Time: 13:35 ec2 09/11 12:19 Order name: Lipase; Complete Time: 13:35 ec2 09/11 12:19 Order name: Urinalysis w/ reflexes; Complete Time: 13:55 ec2 09/11 12:19 Order name: CT Abd/Pelvis - IV Contrast Only; Complete Time: 13:55 ec2 09/11 12:19 Order name: IV Saline Lock; Complete Time: 13:06 ec2 09/11 12:19 Order name: Labs collected and sent; Complete Time: 13:06 ec2 Administered Medications: 12:58 Drug: morphine IVP or IV 4 mg IVP once over 4 mins Route: IVP; Infused Over: 4 mins; db Site: left forearm; 13:42 Follow up: Response: No adverse reaction; Pain is decreased db 12:58 Drug: Ondansetron IVP 4 mg IVP once; over 2 minutes Route: IVP; Site: left forearm; db 13:42 Follow up: Response: No adverse reaction db 13:41 Drug: NS 0.9% IV 250 ml IV at bolus once; to be given as a bolus over 30 minutes Route: db IV; Rate: bolus; Site: left forearm; 14:51 Follow up: Response: No adverse reaction; IV Status: Completed infusion; IV Intake: db 250ml Disposition Summary: 09/11/24 13:57 Discharge Ordered Notes: Location: Home ec2 Condition: Stable ec2 Diagnosis - Abdominal pain, Generalized ec2 Followup: ec2 - With: Private Physician - When: - Reason: Re-evaluation by your physician Discharge Instructions: - Discharge Summary Sheet ec2 - Abdominal Pain, Adult ec2 Forms: - Medication Reconciliation Form ec2 - Antibiotic Education ec2 - Prescription Opioid Use ec2 - Patient Portal Instructions ec2 - Leadership Thank You Letter ec2 Prescriptions: - Zofran 4 mg Oral Tablet - take 1 tablet ORAL route every 12 hours As needed; 20 tablet; Refills: 0, ec2 Product Selection Permitted Signatures: Dispatcher [employer] Kamini Mercer RN RN Brad Fairbanks MD MD ec2
[2024-09-11 15:05] VITALS: TEMP 97.6
[2024-09-11 15:07] VITALS: O2SAT 97
[2024-09-11 15:09] VITALS: BP 139/58
== END 2024-09-11 14:52 | disposition home or self-care (01) ==
LOC: ER 12:12
DX: R10.84 Generalized abdominal pain (principal); K50.90 Crohn's disease, unspecified, without complications; I10 Essential (primary) hypertension; J45.909 Unspecified asthma, uncomplicated; E11.9 Type 2 diabetes mellitus without complications; F32.A Depression, unspecified; Z91.010 Allergy to peanuts
CPT/HCPCS: 96365; 85025; 81001; 36415; 83690; 80053; 74177; 96375; 99285; Q9967; J2405; J7050

== ENCOUNTER 2024-09-12 02:47 | Emergency (ER) | payer OTHER ==
[2024-09-12] MEDS ORDERED: methocarbamoL 750 MG TAB ONE (04:02)
[2024-09-12] MEDS ORDERED: METHYLPREDNISOLONE 125 MG INJ ONE (04:02)
[2024-09-12] MEDS ORDERED: NA CHLORIDE 0.9% 1,000 ML ONE (04:03)
[2024-09-12 04:11] LABS: Absolute Eosinophils 0.1 K/uL (0-0.5); Absolute Lymphocytes (CBC) 2.1 K/uL (0.7-4.9); Absolute Monocytes 0.5 K/uL (0.1-1.3); Absolute Neutrophil 2.6 K/uL (1.8-8.0); Basophils % 0.9 % (0-1.3); Eosinophils % 2.1 % (0-4.4); Hematocrit 38.3 % (39.6-49.0); Hemoglobin 12.5 g/dL (13.6-17.9); Lymphocytes % 39.3 % (15.3-44.8); MCH 28.5 pg (27.0-35.0); MCHC 32.5 g/dL (32.0-36.0); MCV 87.5 fL (80-100); MPV 6.3 fL (7.6-11.3); Monocytes % 9.1 % (3.3-12.3); Neutrophils % 48.6 % (41.7-73.7); Nucleated Red Blood Cells % 0.1 % (0-0); Platelets 300 thou/uL (152-406); RBC Red Blood Cell Count 4.38 M/uL (4.33-5.43); Red Cell Distribution Width 14.3 % (12.1-15.2)
[2024-09-12 04:30] LABS: Albumin 3.5 g/dL (3.4-5.0); Anion Gap 8.2 mEq/L (5.0-15.0); Bilirubin Total 0.3 mg/dL (0.2-1.0); Globulin 3.6 g/dL (2.3-3.5); Protein, Total 7.1 g/dL (6.4-8.2)
[2024-09-12 04:32] LABS: Potassium 4.2 mEq/L (3.5-5.1)
--- NOTE | 2024-09-12 06:12 | EDPHYS ---
Physician Documentation [facility] Name: Piter Iglesias Age: 59 yrs Sex: Male : 1965 Arrival Date: 09/12/2024 Time: 02:47 Bed 10 Private MD: ED Physician Shar Gusman HPI: 09/12 03:36 This 59 yrs old Black Male presents to ER via EMS with complaints of Weakness. sp4 22:07 59-year-old male presents with diffuse bodily cramps. Patient reports he may be sp4 dehydrated. Historical: - Allergies: 03:22 Nuts; lg3 - Home Meds: 03:24 atorvastatin oral [Active]; amlodipine oral [Active]; gabapentin oral [Active]; lg3 hydrocodone-acetaminophen Oral [Active]; Metformin Oral [Active]; Magnesium Oxide Oral [Active]; paroxetine oral [Active]; Hydroxyzine Oral [Active]; Metoprolol Tartrate Oral [Active]; Cyclobenzaprine Oral [Active]; gemfibrozil Oral [Active]; metronidazole Oral [Active]; - PMHx: 03:22 elevated creatinine levels; Anxiety; Asthma; Crohn's Disease; depressive disorder; lg3 depressive disorder; diabetes mellitus; elevated liver enzymes; Hyperlipidemia; Hypertension; spinal stenosis; ulcerative colitis; - PSHx: 03:22 Cholecystectomy; intestinal Surgery; lg3 - Immunization history:: Adult Immunizations up to date. - Infectious Disease History:: Denies. - Social history:: Smoking status: Patient denies any tobacco usage or history of. Patient/guardian denies using alcohol, street drugs. - Family history:: not pertinent. ROS: 22:07 Constitutional: Negative for fever, chills, and weight loss, positive for diffuse sp4 bodily cramps 22:07 All other systems are negative, Exam: 22:07 Constitutional: This is a well developed, well nourished patient who is awake, alert, sp4 and in no acute distress. Head/Face: Normocephalic, atraumatic. Eyes: Pupils equal round and reactive to light, extra-ocular motions intact. Lids and lashes normal. Conjunctiva and sclera are not injected. Cornea within normal limits. Periorbital areas with no swelling, redness, or edema. ENT: Nares patent. No nasal discharge, no septal abnormalities noted. Tympanic membranes are normal and external auditory canals are clear. Oropharynx with no redness, swelling, or masses, exudates, or evidence of obstruction, uvula midline. Mucous membranes moist. Neck: Trachea midline, no thyromegaly or masses palpated, and no cervical lymphadenopathy. Supple, full range of motion without nuchal rigidity, or vertebral point tenderness. Chest/axilla: Normal chest wall appearance and motion. Nontender with no deformity. No lesions are appreciated. Cardiovascular: Regular rate and rhythm with a normal S1 and S2. No gallops, murmurs, or rubs. Normal PMI, no JVD. No pulse deficits. Respiratory: Lungs have equal breath sounds bilaterally, clear to auscultation and percussion. No rales, rhonchi or wheezes noted. No increased work of breathing, no retractions or nasal flaring. Abdomen/GI: Soft, with normal bowel sounds. No distension or tympany. No guarding or rebound. No evidence of tenderness throughout. Back: No spinal tenderness. No costovertebral tenderness. Skin: Warm, dry with normal turgor. Normal color with no rashes, no lesions, and no evidence of cellulitis. MS/ Extremity: Pulses equal, no cyanosis. Neurovascular intact. Full, normal range of motion. Neuro: Awake and alert, GCS 15, oriented to person, place, time, and situation. Cranial nerves II-XII grossly intact. Motor strength 5/5 in all extremities. Sensory grossly intact. Psych: Awake, alert, with orientation to person, place and time. Behavior, mood, and affect are within normal limits Vital Signs: 03:15 BP 110 / 82; Pulse 66; Resp 17 S; Temp 98.5(O); Pulse Ox 99% on R/A; Weight 81.65 kg lg3 (R); Height 5 ft. 3 in. (R); 06:38 BP 119 / 88; Pulse 61; Resp 17 S; Temp 98.1(O); Pulse Ox 99% on R/A; lg3 03:15 Body Mass Index 31.89 (81.65 kg, 160.02 cm) lg3 Jacinto Coma Score: 22:07 Eye Response: spontaneous(4). Motor Response: obeys commands(6). Verbal Response: sp4 oriented(5). Total: 15. MDM: 03:36 Medical Screening Exam initiated sp4 22:07 Data reviewed: vital signs, nurses notes, EMS record, lab test result(s). Consideration sp4 of Admission/Observation Escalation of care including admission/observation considered. ED course: Patient has no sign of significant dehydration. . 22:14 ED course: Stable for discharge home with medication for cramps. sp4 09/12 03:36 Order name: CBC with Diff; Complete Time: 06:07 sp4 09/12 03:36 Order name: CMP; Complete Time: 06:07 sp4 09/12 03:36 Order name: Lipase; Complete Time: 06:07 sp4 09/12 03:36 Order name: CK; Complete Time: 06:07 sp4 09/12 03:36 Order name: IV Saline Lock; Complete Time: 04:00 sp4 09/12 03:36 Order name: Labs collected and sent; Complete Time: 04:00 sp4 Administered Medications: 04:12 Drug: NS 0.9% IV 1000 ml IV at 1 bolus Per protocol; to be given as a bolus over 60 kl minutes Route: IV; Rate: 1 bolus; Site: left antecubital; 06:39 Follow up: Response: No adverse reaction; IV Status: Completed infusion; IV Intake: lg3 1000ml 04:12 Drug: Methocarbamol PO 1500 mg PO once Route: PO; kl 06:39 Follow up: Response: No adverse reaction lg3 04:12 Drug: MethylPrednisoLONE IVP 125 mg IVP once Route: IVP; Site: left antecubital; kl 06:40 Follow up: Response: No adverse reaction lg3 Disposition Summary: 09/12/24 06:11 Discharge Ordered Notes: Location: Home sp4 Problem: new sp4 Symptoms: have improved sp4 Condition: Stable sp4 Diagnosis - Acute muscular cramps, generalized weakness sp4 Followup: sp4 - With: Private Physician - When: 7 - 10 days - Reason: Recheck today's complaints Discharge Instructions: - Discharge Summary Sheet sp4 - Muscle Cramps and Spasms, Axur-df-Txps sp4 Forms: - Patient Portal Instructions sp4 Prescriptions: - dicyclomine 20 mg Oral tablet - take 1 tablet ORAL route 3 times per day PRN cramps; 60 tablet; Refills: 0, sp4 Product Selection Permitted - methocarbamol 750 mg Oral tablet - take 2 tablets ORAL route every 8 hours for 2 days PRN muscle cramp; 30 tablet; sp4 Refills: 0, Product Selection Permitted Signatures: Dispatcher [employer] Yessy Gomes, RN RN Dona Tolbert RN RN lg3 Shar Gusman MD MD sp4
--- NOTE | 2024-09-12 06:12 | ER ---
Nurse's Notes [facility] Name: Piter Iglesias Age: 59 yrs Sex: Male : 1965 Arrival Date: 09/12/2024 Time: 02:47 Bed 10 Private MD: Diagnosis: Acute muscular cramps, generalized weakness Presentation: 09/12 03:15 Chief complaint: Patient states: I feel dehydrated, i peed 4 times since i went to bed, lg3 my muscles are cramping and my right shoulder hurts. Coronavirus screen: Client denies travel out of the [place] in the last 14 days. At this time, the client does not indicate any symptoms associated with coronavirus-19. Ebola Screen: No symptoms or risks identified at this time. Initial Sepsis Screen: Does the patient meet any 2 criteria? No. Patient's initial sepsis screen is negative. Does the patient have a suspected source of infection? No. Patient's initial sepsis screen is negative. Risk Assessment: Do you want to hurt yourself or someone else? Patient reports no desire to harm self or others. Onset of symptoms is unknown. 03:15 Method Of Arrival: EMS: [facility] lg3 03:15 Acuity: AISHA 4 lg3 Triage Assessment: 03:22 General: Appears in no apparent distress. comfortable, Behavior is calm, cooperative. lg3 Pain: Complains of pain in right shoulder. EENT: No deficits noted. No signs and/or symptoms were reported regarding the EENT system. Neuro: No deficits noted. Campbell Agitation-Sedation Scale (RASS): 0 - Alert and Calm Level of Consciousness is awake, alert, obeys commands, Oriented to person, place, time, situation, Reports weakness. Cardiovascular: No deficits noted. Denies chest pain, shortness of breath, Capillary refill < 3 seconds Clubbing of nail beds is absent JVD is absent Patient's skin is warm and dry. Respiratory: No deficits noted. Airway is patent Respiratory effort is even, unlabored, Respiratory pattern is regular, symmetrical. GI: No deficits noted. No signs and/or symptoms were reported involving the gastrointestinal system. : No signs and/or symptoms were reported regarding the genitourinary system. Derm: No deficits noted. No signs and/or symptoms reported regarding the dermatologic system. Skin is intact, is healthy with good turgor, Skin is dry, Skin is normal, Skin temperature is warm. Musculoskeletal: No deficits noted. Circulation, motion, and sensation intact. Range of motion: intact in all extremities. Historical: - Allergies: 03:22 Nuts; lg3 - Home Meds: 03:24 atorvastatin oral [Active]; amlodipine oral [Active]; gabapentin oral [Active]; lg3 hydrocodone-acetaminophen Oral [Active]; Metformin Oral [Active]; Magnesium Oxide Oral [Active]; paroxetine oral [Active]; Hydroxyzine Oral [Active]; Metoprolol Tartrate Oral [Active]; Cyclobenzaprine Oral [Active]; gemfibrozil Oral [Active]; metronidazole Oral [Active]; - PMHx: 03:22 elevated creatinine levels; Anxiety; Asthma; Crohn's Disease; depressive disorder; lg3 depressive disorder; diabetes mellitus; elevated liver enzymes; Hyperlipidemia; Hypertension; spinal stenosis; ulcerative colitis; - PSHx: 03:22 Cholecystectomy; intestinal Surgery; lg3 - Immunization history:: Adult Immunizations up to date. - Infectious Disease History:: Denies. - Social history:: Smoking status: Patient denies any tobacco usage or history of. Patient/guardian denies using alcohol, street drugs. - Family history:: not pertinent. Screenin:30 [facility] ED Fall Risk Assessment (Adult) History of falling in the last 3 months, lg3 including since admission No falls in past 3 months (0 pts) Confusion or Disorientation No (0 pts) Intoxicated or Sedated No (0 pts) Impaired Gait No (0 pts) Mobility Assist Device Used No (0 pt) Altered Elimination No (0 pt) Score/Fall Risk Level 0 - 2 = Low Risk Oriented to surroundings, Maintained a safe environment, Educated pt \T\ family on fall prevention, incl call for assistance when getting out of bed, Assessed \T\ reinforced patient's understanding of fall precautions. Abuse screen: Denies threats or abuse. Denies injuries from another. Nutritional screening: No deficits noted. Tuberculosis screening: No symptoms or risk factors identified. Assessment: 03:30 General: see triage assessment. lg3 06:38 Reassessment: Patient appears in no apparent distress at this time. No changes from lg3 previously documented assessment. Patient and/or family updated on plan of care and expected duration. Pain level reassessed. Patient is alert, oriented x 3, equal unlabored respirations, skin warm/dry/pink. Vital Signs: 03:15 BP 110 / 82; Pulse 66; Resp 17 S; Temp 98.5(O); Pulse Ox 99% on R/A; Weight 81.65 kg lg3 (R); Height 5 ft. 3 in. (R); 06:38 BP 119 / 88; Pulse 61; Resp 17 S; Temp 98.1(O); Pulse Ox 99% on R/A; lg3 03:15 Body Mass Index 31.89 (81.65 kg, 160.02 cm) lg3 Jacinto Coma Score: 22:07 Eye Response: spontaneous(4). Motor Response: obeys commands(6). Verbal Response: sp4 oriented(5). Total: 15. ED Course: 02:51 Patient arrived in ED. gm2 03:17 Triage completed. lg3 03:22 Arm band placed on right wrist. lg3 03:30 Patient has correct armband on for positive identification. Placed in gown. Bed in low lg3 position. Call light in reach. Side rails up X 1. Client placed on continuous cardiac and pulse oximetry monitoring. NIBP monitoring applied. patient monitor on. Door closed. Noise minimized. Warm blanket given. Pillow given. 03:30 Patient maintains SpO2 saturation greater than 95% on room air. lg3 03:36 Shar Gusman MD is Attending Physician. sp4 03:59 Inserted saline lock: 22 gauge in left wrist, using aseptic technique. Blood collected. lg3 Flushed with 10 mL NS. 06:38 No provider procedures requiring assistance completed. IV discontinued, intact, lg3 bleeding controlled, No redness/swelling at site. Pressure dressing applied. Administered Medications: 04:12 Drug: NS 0.9% IV 1000 ml IV at 1 bolus Per protocol; to be given as a bolus over 60 kl minutes Route: IV; Rate: 1 bolus; Site: left antecubital; 06:39 Follow up: Response: No adverse reaction; IV Status: Completed infusion; IV Intake: lg3 1000ml 04:12 Drug: Methocarbamol PO 1500 mg PO once Route: PO; kl 06:39 Follow up: Response: No adverse reaction lg3 04:12 Drug: MethylPrednisoLONE IVP 125 mg IVP once Route: IVP; Site: left antecubital; michela 06:40 Follow up: Response: No adverse reaction lg3 Medication: 06:38 VIS not applicable for this client. lg3 Intake: 06:39 IV: 1000ml; Total: 1000ml. lg3 Outcome: 06:11 Discharge ordered by . roberto 06:38 Discharged to home ambulatory, lg3 06:38 Condition: stable 06:38 Discharge instructions given to patient, Instructed on discharge instructions, follow up and referral plans. medication usage, Demonstrated understanding of instructions, follow-up care, Prescriptions given X 2, 06:39 Patient left the ED. lg3 Signatures: Yessy William RN RN Dona Tolbert RN RN lg3 Shar Gusman MD MD sp4 Fatou Lindquist 2
[2024-09-12 06:56] VITALS: O2SAT 99
[2024-09-12 06:58] VITALS: BP 119/88; TEMP 98.1
== END 2024-09-12 06:39 | disposition home or self-care (01) ==
LOC: ER 02:47
DX: R25.2 Cramp and spasm (principal); R53.1 Weakness; E11.9 Type 2 diabetes mellitus without complications; I10 Essential (primary) hypertension
CPT/HCPCS: 96361; 85025; 36415; 82550; 83690; 80053; 96374; 99285; J2919; J7030

== ENCOUNTER 2024-09-15 02:24 | Emergency (ER) | payer OTHER ==
[2024-09-15 03:08] LABS: Absolute Eosinophils 0.1 K/uL (0-0.5); Absolute Lymphocytes (CBC) 2.6 K/uL (0.7-4.9); Absolute Monocytes 0.7 K/uL (0.1-1.3); Absolute Neutrophil 2.2 K/uL (1.8-8.0); Basophils % 0.8 % (0-1.3); Eosinophils % 0.9 % (0-4.4); Hematocrit 35.1 % (39.6-49.0); Hemoglobin 11.6 g/dL (13.6-17.9); Lymphocytes % 46.9 % (15.3-44.8); MCH 28.9 pg (27.0-35.0); MCHC 32.9 g/dL (32.0-36.0); MCV 87.7 fL (80-100); MPV 6.3 fL (7.6-11.3); Monocytes % 12.7 % (3.3-12.3); Neutrophils % 38.7 % (41.7-73.7); Nucleated Red Blood Cells % 0.1 % (0-0); Platelets 284 thou/uL (152-406); Red Cell Distribution Width 14.7 % (12.1-15.2)
[2024-09-15 03:25] LABS: Albumin/Globulin Ratio 0.9 (1.1-1.8); Anion Gap 8.7 mEq/L (5.0-15.0); Bilirubin Total 0.2 mg/dL (0.2-1.0); Globulin 3.2 g/dL (2.3-3.5); Potassium 3.7 mEq/L (3.5-5.1); Protein, Total 6.2 g/dL (6.4-8.2)
--- NOTE | 2024-09-15 06:45 | RAD REPORT ---
EXAMINATION: CT ABDOMEN AND PELVIS WITHOUT CONTRAST CLINICAL INDICATION: Male, 59 years old.ABD PAIN TECHNIQUE: CT abdomen and pelvis was performed, without IV contrast, as per department protocol. Axia l, sagittal and coronal reconstructions were obtained. One or more of the following dose reduction techniques were used: Automated exposure control, adjustment of the mA and/or kV according to the pat ient size, and/or iterative reconstruction. Unless otherwise specified, incidental findings do not require dedicated imaging follow-up. [id number]. IV CONTRAST: Not [id number]. COMPARISON: 09/11/2024 FINDINGS: The lack of intravenous contrast limits the sensitivity of this exam for evaluation of solid visceral organs, vascular structures, and retroperitoneum. LOWER CHEST: No acute process identified.No significant pericardial effusion. Moderate circumferentia l thickening of the distal esophagus which could reflect esophagitis. Endoscopy could better evaluate. UPPER GI: No significant abnormality. LIVER: No significant focal abnormality. GALLBLADDER/BILE DUCTS: No biliary ductal dilatation.? PANCREAS: No mass, ductal dilation, or carline-pancreatic fluid. SPLEEN: Unremarkable. ADRENALS: No adrenal masses. KIDNEYS AND URETERS: Normal size and contour. No hydronephrosis.No suspicious renal mass. ABDOMINAL AORTA AND OTHER VESSELS: Mild atherosclerotic changes. PERITONEUM: No abnormal free fluid. No free air. LYMPH NODES: No pathologic lymphadenopathy. ABDOMINAL WALL: Laparotomy defect. SMALL BOWEL/COLON: Large pancolonic stool burden.Appendix absent. Surgical changes of partial small b owel resection and sigmoid anastomosis. Some fluid distended loops of small bowel noted in the right hemiabdomen in the region of the anastomoses. URINARY BLADDER: Underdistended but grossly unremarkable. REPRODUCTIVE ORGANS: No pathologic process. MUSCULOSKELETAL: Grade 1 anterolisthesis of L5 on S1 with bilateral pars defects. ADDITIONAL FINDINGS: None. IMPRESSION: Large pancolonic stool burden. This would be consistent with constipation. Fluid distended small nelda l in the right hemiabdomen near some of the small bowel anastomoses but without evidence of bowel obstruction this time.
--- NOTE | 2024-09-15 06:48 | ER ---
Nurse's Notes [facility] Name: Piter Iglesias Age: 59 yrs Sex: Male : 1965 Arrival Date: 09/15/2024 Time: 02:24 Bed 6 Private MD: Diagnosis: Abdominal pain, Generalized;Constipation, unspecified Presentation: 09/15 02:31 Chief complaint: EMS states: toned out for c/o abdominal pain and constipation x2 days. dd2 Pt reports was here in the ER this past Monday for abdominal pain. Coronavirus screen: At this time, the client does not indicate any symptoms associated with coronavirus-19. Ebola Screen: No symptoms or risks identified at this time. Initial Sepsis Screen: Does the patient meet any 2 criteria? No. Patient's initial sepsis screen is negative. Does the patient have a suspected source of infection? No. Patient's initial sepsis screen is negative. Risk Assessment: Do you want to hurt yourself or someone else? Patient reports no desire to harm self or others. Onset of symptoms was September 13, 2024. Care prior to arrival: Medication(s) given: TORADOL 30MG IM Glucose check: 154. 02:31 Method Of Arrival: EMS: [facility] dd2 02:31 Acuity: AISHA 3 dd2 Triage Assessment: 02:34 General: Appears in no apparent distress. uncomfortable, Behavior is calm, cooperative, dd2 appropriate for age. Pain: Complains of pain in right lower quadrant and left lower quadrant Pain does not radiate. Pain currently is 10 out of 10 on a pain scale. Quality of pain is described as crampy, sharp, Pain began 2-3 days ago. EENT: No deficits noted. No signs and/or symptoms were reported regarding the EENT system. Neuro: Campbell Agitation-Sedation Scale (RASS): 0 - Alert and Calm Level of Consciousness is awake, alert, obeys commands, Oriented to person, place, time, situation, Appropriate for age. Cardiovascular: No deficits noted. Patient's skin is warm and dry. Respiratory: No deficits noted. Airway is patent Respiratory effort is even, unlabored, Respiratory pattern is regular, symmetrical, Breath sounds are clear. GI: Abdomen is non-distended, Bowel sounds present X 4 quads. Abdomen is tender to palpation in right lower quadrant and left lower quadrant Reports lower abdominal pain, constipation, cramping, flatulence. : No deficits noted. No signs and/or symptoms were reported regarding the genitourinary system. Derm: No deficits noted. No signs and/or symptoms reported regarding the dermatologic system. Skin is healthy with good turgor, Skin is dry, Skin is normal, Skin temperature is warm. Musculoskeletal: No deficits noted. No signs and/or symptoms reported regarding the musculoskeletal system. Circulation, motion, and sensation intact. Range of motion: intact in all extremities. Historical: - Allergies: 02:34 Nuts; dd2 - PMHx: 02:34 elevated creatinine levels; Anxiety; Asthma; Crohn's Disease; depressive disorder; dd2 diabetes mellitus; elevated liver enzymes; Hyperlipidemia; Hypertension; spinal stenosis; ulcerative colitis; - PSHx: 02:34 Cholecystectomy; intestinal Surgery; dd2 - Immunization history:: Adult Immunizations up to date. - Infectious Disease History:: Denies. - Social history:: Smoking status: Patient denies any tobacco usage or history of. Screenin:12 [facility] ED Fall Risk Assessment (Adult) History of falling in the last 3 months, dd2 including since admission No falls in past 3 months (0 pts) Confusion or Disorientation No (0 pts) Intoxicated or Sedated No (0 pts) Impaired Gait No (0 pts) Mobility Assist Device Used No (0 pt) Altered Elimination No (0 pt) Score/Fall Risk Level 0 - 2 = Low Risk Oriented to surroundings, Maintained a safe environment, Educated pt \T\ family on fall prevention, incl call for assistance when getting out of bed, Assessed \T\ reinforced patient's understanding of fall precautions, Hourly rounding (assess needs \T\ fall precautionary measures) done. Abuse screen: Denies threats or abuse. Nutritional screening: No deficits noted. Tuberculosis screening: No symptoms or risk factors identified. Assessment: 02:37 Reassessment: SEE TRIAGE ASSESSMENT FOR FULL ASSESSMENT. dd2 06:27 Reassessment: Patient is alert, oriented x 3, equal unlabored respirations, skin dd2 warm/dry/pink. Pt continues to c/o constipation and abdominal pain 3/10 Patient states symptoms have not improved. Vital Signs: 02:31 BP 115 / 94; Pulse 65; Resp 16; Temp 97.8(O); Pulse Ox 96% on R/A; Weight 81.65 kg; dd2 Height 5 ft. 3 in. ; Pain 10/10; 05:40 BP 111 / 86; Pulse 58; Resp 16; Pulse Ox 99% on R/A; dd2 06:26 BP 116 / 87; Pulse 61; Resp 16; Pulse Ox 99% on R/A; dd2 07:29 BP 114 / 85; Pulse 65; Resp 16; Pulse Ox 100% ; bp 02:31 Body Mass Index 31.89 (81.65 kg, 160.02 cm) dd2 02:31 Pain Scale: Adult dd2 [place] Coma Score: 03:12 Eye Response: spontaneous(4). Motor Response: obeys commands(6). Verbal Response: dd2 oriented(5). Total: 15. ED Course: 02:25 Patient arrived in ED. jj6 02:25 Brad Koroma MD is Attending Physician. ec2 02:27 JOVITA KRAMER, YUSUF is Primary Nurse. dd2 02:34 Triage completed. dd2 02:34 Arm band placed on right wrist. Patient placed in an exam room, on a stretcher, on dd2 pulse oximetry. 03:12 Patient has correct armband on for positive identification. Bed in low position. Call dd2 light in reach. Side rails up X2. Client placed on continuous cardiac and pulse oximetry monitoring. NIBP monitoring applied. Door closed. Noise minimized. Warm blanket given. Pillow given. Verbal reassurance given. 03:12 CBC with Diff Sent. dd2 03:12 CMP Sent. dd2 03:12 Lipase Sent. dd2 03:12 No provider procedures requiring assistance completed. Initial lab(s) drawn, by sc, dd2 sent to lab. Inserted saline lock: 20 gauge in right antecubital area, using aseptic technique. Blood collected. Flushed with 10 mL NS. Patient maintains SpO2 saturation greater than 95% on room air. 03:13 CT Abd/Pelvis - Without Contrast In Process Unspecified. EDMS 07:30 IV discontinued, intact, bleeding controlled, No redness/swelling at site. Pressure bp dressing applied. Administered Medications: 07:15 Drug: Milk of Magnesia PO Suspension 400 mg/5 mL 30 ml PO once Route: PO; bp 07:29 Follow up: Response: No adverse reaction bp Medication: 03:12 VIS not applicable for this client. dd2 Outcome: 06:48 Discharge ordered by . malik 07:30 Discharged to home via wheelchair, bp 07:30 Condition: stable 07:30 Discharge instructions given to patient, Instructed on discharge instructions, follow up and referral plans. medication usage, Demonstrated understanding of instructions, follow-up care, medications, Prescriptions given X 1, 07:30 Patient left the ED. bp Signatures: Dispatcher [employer] Simon Rodriguez, RN RN bp Geri Alonzo jj6 Brad Koroma MD MD ec2 JOVITA KRAMER RN RN dd2
--- NOTE | 2024-09-15 06:48 | EDPHYS ---
Physician Documentation [facility] Name: Piter Iglesias Age: 59 yrs Sex: Male : 1965 Arrival Date: 09/15/2024 Time: 02:24 Bed 6 Private MD: ED Physician Brad Koroma HPI: 09/15 03:03 This 59 yrs old Black Male presents to ER via EMS with complaints of Abdominal Pain. ec2 03:03 Patient arrives today for evaluation of abdominal pain and constipation. Reports ec2 constipation onset for approximately 36 hours. Patient reports abdominal pain as well. Has recent this is for similar complaints. Otherwise no nausea or vomiting. Previous history of multiple abdominal surgeries with a history of Crohn's colitis.. Historical: - Allergies: 02:34 Nuts; dd2 - PMHx: 02:34 elevated creatinine levels; Anxiety; Asthma; Crohn's Disease; depressive disorder; dd2 diabetes mellitus; elevated liver enzymes; Hyperlipidemia; Hypertension; spinal stenosis; ulcerative colitis; - PSHx: 02:34 Cholecystectomy; intestinal Surgery; dd2 - Immunization history:: Adult Immunizations up to date. - Infectious Disease History:: Denies. - Social history:: Smoking status: Patient denies any tobacco usage or history of. ROS: 03:03 Constitutional: as per hpi ec2 Exam: 03:03 Constitutional: GEN: NAD Head: atraumatic Eyes: EOMI Ears: External ears are ec2 normal. CV: regular rate LUNGS: no respiratory distress ABD: non-distended SKIN: no evidence of rashes MSK: no evidence of trauma Vital Signs: 02:31 BP 115 / 94; Pulse 65; Resp 16; Temp 97.8(O); Pulse Ox 96% on R/A; Weight 81.65 kg; dd2 Height 5 ft. 3 in. ; Pain 10/10; 05:40 BP 111 / 86; Pulse 58; Resp 16; Pulse Ox 99% on R/A; dd2 06:26 BP 116 / 87; Pulse 61; Resp 16; Pulse Ox 99% on R/A; dd2 07:29 BP 114 / 85; Pulse 65; Resp 16; Pulse Ox 100% ; bp 02:31 Body Mass Index 31.89 (81.65 kg, 160.02 cm) dd2 02:31 Pain Scale: Adult dd2 [place] Coma Score: 03:12 Eye Response: spontaneous(4). Motor Response: obeys commands(6). Verbal Response: dd2 oriented(5). Total: 15. MDM: 02:25 Medical Screening Exam initiated ec2 03:03 Data reviewed: vital signs, nurses notes. ED course: Patient arrives today for ec2 evaluation of abdominal pain and constipation. Semination is unrevealing. Will obtain lab work, CT imaging. Differential diagnosis include processes such as small bowel obstruction, constipation, chronic abdominal pain.. 06:47 ED course: CT imaging shows constipation, no obstruction. Will give the patient milk of ec2 magnesia, prescribe the patient lactulose. Will discharge home. Return precautions given.. 09/15 02:26 Order name: CBC with Diff; Complete Time: 03:28 ec2 09/15 02:26 Order name: CMP; Complete Time: 03:28 ec2 09/15 02:26 Order name: Lipase; Complete Time: 03:28 ec2 09/15 02:26 Order name: CT Abd/Pelvis - Without Contrast; Complete Time: 06:46 ec2 09/15 02:26 Order name: IV Saline Lock; Complete Time: 03:12 ec2 09/15 02:26 Order name: Labs collected and sent; Complete Time: 03:12 ec2 Administered Medications: 07:15 Drug: Milk of Magnesia PO Suspension 400 mg/5 mL 30 ml PO once Route: PO; bp 07:29 Follow up: Response: No adverse reaction bp Disposition Summary: 09/15/24 06:48 Discharge Ordered Notes: Location: Home ec2 Condition: Stable ec2 Diagnosis - Abdominal pain, Generalized ec2 - Constipation, unspecified ec2 Followup: ec2 - With: Private Physician - When: - Reason: Re-evaluation by your physician Discharge Instructions: - Discharge Summary Sheet ec2 - Constipation, Adult ec2 Forms: - Medication Reconciliation Form ec2 - Antibiotic Education ec2 - Prescription Opioid Use ec2 - Patient Portal Instructions ec2 - Leadership Thank You Letter ec2 Prescriptions: - Lactulose 10 gram/15 mL Oral Solution - take 30 milliliters ORAL route once daily; 300 milliliter; Refills: 0, Product ec2 Selection Permitted Signatures: Dispatcher [employer] Simon Rodriguez RN RN bp Brad Koroma MD MD ec2 NIA, JOVITA, RN RN dd2
[2024-09-15] MEDS ORDERED: MAGNESIUM HYDROXIDE 8% 30 ML ONE (07:16)
[2024-09-15 07:37] VITALS: TEMP 97.8
[2024-09-15 07:42] VITALS: BP 114/85; O2SAT 100
== END 2024-09-15 07:30 | disposition home or self-care (01) ==
LOC: ER 02:24
DX: K59.00 Constipation, unspecified (principal)
CPT/HCPCS: 36415; 74176; 80053; 83690; 85025; 99284

== ENCOUNTER 2024-10-04 01:07 | Emergency (ER) | payer OTHER ==
[2024-10-04] MEDS ORDERED: METHYLPREDNISOLONE 125 MG INJ ONE (01:18)
[2024-10-04] MEDS ORDERED: methocarbamoL 750 MG TAB ONE (01:18)
[2024-10-04] MEDS ORDERED: PROMETHAZINE 25 MG TABLET ONE (01:18)
[2024-10-04] MEDS ORDERED: KETOROLAC 30 MG/ML INJ ONE (01:18)
[2024-10-04] MEDS ORDERED: MORPHINE 4 MG/ML SYR ONE (01:19)
--- NOTE | 2024-10-04 02:19 | EDPHYS ---
Physician Documentation [facility] Name: Piter Iglesias Age: 59 yrs Sex: Male : 1965 Arrival Date: 10/04/2024 Time: 01:07 Bed 17 Private MD: ED Physician Shar Gusman HPI: 10/04 02:18 This 59 yrs old Black Male presents to ER via EMS with complaints of Abdominal Pain, sp4 Swelling of Lower Extremity. 02:18 Patient presents with generalized pain and complaint of bilateral lower extremity sp4 swelling.. 07:18 . sp4 Historical: - Allergies: 01:28 Nuts; mt4 01:28 Pollen; mt4 01:28 Grass; mt4 01:28 NKDA; mt4 - PMHx: 01:28 elevated creatinine levels; Asthma; Anxiety; depressive disorder; Crohn's Disease; mt4 elevated liver enzymes; diabetes mellitus; Hypertension; Hyperlipidemia; spinal stenosis; ulcerative colitis; - Immunization history:: Adult Immunizations up to date. - Infectious Disease History:: Denies. - Social history:: Smoking status: Patient denies any tobacco usage or history of. The [facility] a [facility]. ROS: 07:18 Constitutional: Negative for fever, chills, and weight loss, positive for generalized sp4 pain and positive for reported bilateral lower extremity swelling. 07:18 All other systems are negative, Exam: 07:18 Constitutional: This is a well developed, well nourished patient who is awake, alert, sp4 and in no acute distress. Head/Face: Normocephalic, atraumatic. Eyes: Pupils equal round and reactive to light, extra-ocular motions intact. Lids and lashes normal. Conjunctiva and sclera are not injected. Cornea within normal limits. Periorbital areas with no swelling, redness, or edema. ENT: Nares patent. No nasal discharge, no septal abnormalities noted. Tympanic membranes are normal and external auditory canals are clear. Oropharynx with no redness, swelling, or masses, exudates, or evidence of obstruction, uvula midline. Mucous membranes moist. Neck: Trachea midline, no thyromegaly or masses palpated, and no cervical lymphadenopathy. Supple, full range of motion without nuchal rigidity, or vertebral point tenderness. Chest/axilla: Normal chest wall appearance and motion. Nontender with no deformity. No lesions are appreciated. Cardiovascular: Regular rate and rhythm with a normal S1 and S2. No gallops, murmurs, or rubs. Normal PMI, no JVD. No pulse deficits. Respiratory: Lungs have equal breath sounds bilaterally, clear to auscultation and percussion. No rales, rhonchi or wheezes noted. No increased work of breathing, no retractions or nasal flaring. Abdomen/GI: Soft, with normal bowel sounds. No distension or tympany. No guarding or rebound. No evidence of tenderness throughout. Back: No spinal tenderness. No costovertebral tenderness. Skin: Warm, dry with normal turgor. Normal color with no rashes, no lesions, and no evidence of cellulitis. MS/ Extremity: Pulses equal, no cyanosis. Neurovascular intact. Full, normal range of motion. No bilateral lower extremity edema Neuro: Awake and alert, GCS 15, oriented to person, place, time, and situation. Cranial nerves II-XII grossly intact. Motor strength 5/5 in all extremities. Sensory grossly intact. Psych: Awake, alert, with orientation to person, place and time. Behavior, mood, and affect are within normal limits Vital Signs: 01:20 BP 110 / 80; Pulse 71; Resp 19; Temp 98.2(O); Pulse Ox 100% on R/A; Weight 81.65 kg mt4 (R); Height 5 ft. 3 in. (R); Pain 9/10; 02:00 BP 150 / 99; Pulse 71; Resp 18; Pulse Ox 100% ; mt4 03:00 BP 120 / 85; Pulse 66; Resp 17; Pulse Ox 98% ; mt4 04:30 BP 116 / 88; Pulse 100; Resp 16; Pulse Ox 100% on R/A; Pain 4/10; mt4 01:20 Body Mass Index 31.89 (81.65 kg, 160.02 cm) mt4 01:20 Pain Scale: Adult mt4 04:30 Pain Scale: Adult mt4 [place] Coma Score: 07:18 Eye Response: spontaneous(4). Motor Response: obeys commands(6). Verbal Response: sp4 oriented(5). Total: 15. MDM: 02:18 Medical Screening Exam initiated sp4 07:18 Differential diagnosis: contusion, abrasion, tendonitis. Data reviewed: vital signs, sp4 nurses notes, EMS record, old medical records. ED course: Patient is well familiar to me from prior visits. Examination today is normal. There is no sign of lower extremity edema. Patient's pain was controlled. Patient has chronic pain with history of Crohn's disease asthma anxiety and depression. Patient has exacerbation of his chronic diffuse generalized pain. Patient felt improved and was discharged home with as needed Robaxin. Administered Medications: 01:55 Drug: morphine IM 4 mg IM once Route: IM; Site: right deltoid; mt4 04:43 Follow up: Response: No adverse reaction mt4 01:55 Drug: Ketorolac IM 60 mg IM once Route: IM; Site: right deltoid; mt4 04:43 Follow up: Response: No adverse reaction mt4 01:55 Drug: Promethazine PO 25 mg PO once Route: PO; mt4 04:43 Follow up: Response: No adverse reaction mt4 01:55 Drug: Methocarbamol PO 1500 mg PO once Route: PO; mt4 04:43 Follow up: Response: No adverse reaction mt4 01:56 Drug: MethylPREDNISolone Sodium Succinate IM 125 mg IM once Route: IM; Site: left mt4 deltoid; 04:43 Follow up: Response: No adverse reaction mt4 Disposition Summary: 10/04/24 02:19 Discharge Ordered Notes: Location: Home sp4 Problem: new sp4 Symptoms: have improved sp4 Condition: Stable sp4 Diagnosis - Abdominal pain, Generalized sp4 - Acute exacerbation of chronic pain sp4 Followup: sp4 - With: Private Physician - When: 7 - 10 days - Reason: Recheck today's complaints Discharge Instructions: - Discharge Summary Sheet sp4 - Pain Without a Known Cause sp4 Forms: - Patient Portal Instructions sp4 Prescriptions: - methocarbamol 750 mg Oral tablet - take 2 tablets ORAL route every 8 hours for 2 days PRN Pain; 60 tablet; sp4 Refills: 0, Product Selection Permitted Signatures: Shar Gusman MD MD sp4 Judah Wang RN RN mt4
--- NOTE | 2024-10-04 02:19 | ER ---
Nurse's Notes [facility] Name: Piter Iglesias Age: 59 yrs Sex: Male : 1965 Arrival Date: 10/04/2024 Time: 01:07 Bed 17 Private MD: Diagnosis: Abdominal pain, Generalized;Acute exacerbation of chronic pain Presentation: 10/04 01:20 Chief complaint: Patient states: complains of abdominal pain since 5pm, states has not mt4 had bowel movement since yesterday. Patient also complains of generalized pain in shoulders, legs, stomach, and swelling in lower extremities. Coronavirus screen: At this time, the client does not indicate any symptoms associated with coronavirus-19. Ebola Screen: No symptoms or risks identified at this time. Initial Sepsis Screen: Does the patient meet any 2 criteria? No. Patient's initial sepsis screen is negative. Does the patient have a suspected source of infection? No. Patient's initial sepsis screen is negative. Risk Assessment: Do you want to hurt yourself or someone else? Patient reports no desire to harm self or others. Onset of symptoms was September 02, 2025. 01:20 Method Of Arrival: EMS: [facility] mt4 01:20 Acuity: AISHA 3 mt4 Triage Assessment: :28 General: Appears in no apparent distress. comfortable, Behavior is calm, cooperative, mt4 appropriate for age. Pain: Complains of pain in chest, abdomen, right arm, left arm, right leg and left leg Pain currently is 9 out of 10 on a pain scale. Pain began gradually, Is continuous. Neuro: Oriented to person, place, time, situation, Appropriate for age Speech is normal, Facial symmetry appears normal. Cardiovascular: Capillary refill < 3 seconds. Respiratory: Airway is patent Respiratory effort is even, unlabored, Respiratory pattern is regular, symmetrical. GI: Abdomen is round non-distended, Abdomen is tender to palpation X 4 quads. in right upper quadrant, left upper quadrant, right lower quadrant and left lower quadrant Reports Pain is 9 out of 10 on a pain scale. : Denies burning with urination. Musculoskeletal: Range of motion: intact in all extremities. Historical: - Allergies: : Nuts; mt4 :28 Pollen; mt4 :28 Grass; mt4 :28 NKDA; mt4 - PMHx: 01:28 elevated creatinine levels; Asthma; Anxiety; depressive disorder; Crohn's Disease; mt4 elevated liver enzymes; diabetes mellitus; Hypertension; Hyperlipidemia; spinal stenosis; ulcerative colitis; - Immunization history:: Adult Immunizations up to date. - Infectious Disease History:: Denies. - Social history:: Smoking status: Patient denies any tobacco usage or history of. The patient lives in a shelter. Screenin:00 [facility] ED Fall Risk Assessment (Adult) History of falling in the last 3 months, mt4 including since admission No falls in past 3 months (0 pts) Confusion or Disorientation No (0 pts) Intoxicated or Sedated No (0 pts) Impaired Gait No (0 pts) Mobility Assist Device Used No (0 pt) Altered Elimination No (0 pt) Score/Fall Risk Level 0 - 2 = Low Risk. Abuse screen: Denies threats or abuse. Nutritional screening: No deficits noted. Tuberculosis screening: No symptoms or risk factors identified. Exposure risk/Travel Screening: None identified. Assessment: 01:33 Reassessment: see triage notes. mt4 03:00 Reassessment: Patient and/or family updated on plan of care and expected duration. Pain mt4 level reassessed. Patient states symptoms have improved. 03:00 GI: Bowel sounds present X 4 quads. mt4 Vital Signs: 01:20 BP 110 / 80; Pulse 71; Resp 19; Temp 98.2(O); Pulse Ox 100% on R/A; Weight 81.65 kg mt4 (R); Height 5 ft. 3 in. (R); Pain 9/10; 02:00 BP 150 / 99; Pulse 71; Resp 18; Pulse Ox 100% ; mt4 03:00 BP 120 / 85; Pulse 66; Resp 17; Pulse Ox 98% ; mt4 04:30 BP 116 / 88; Pulse 100; Resp 16; Pulse Ox 100% on R/A; Pain 4/10; mt4 01:20 Body Mass Index 31.89 (81.65 kg, 160.02 cm) mt4 01:20 Pain Scale: Adult mt4 04:30 Pain Scale: Adult mt4 [place] Coma Score: 07:18 Eye Response: spontaneous(4). Motor Response: obeys commands(6). Verbal Response: sp4 oriented(5). Total: 15. ED Course: 01:12 Patient arrived in ED. jj6 01:14 Shar Gusman MD is Attending Physician. sp4 01:15 Judah Wang, RN is Primary Nurse. mt4 01:28 Triage completed. mt4 01:28 Arm band placed on. mt4 03:00 Patient has correct armband on for positive identification. Bed in low position. Call mt4 light in reach. Side rails up X 1. Provided Education on:. Client placed on continuous cardiac and pulse oximetry monitoring. NIBP monitoring applied. Door closed. Lights dimmed. Warm blanket given. Pillow given. Verbal reassurance given. Assisted with urinal. 03:00 No provider procedures requiring assistance completed. Patient did not have IV access mt4 during this emergency room visit. Administered Medications: 01:55 Drug: morphine IM 4 mg IM once Route: IM; Site: right deltoid; mt4 04:43 Follow up: Response: No adverse reaction mt4 01:55 Drug: Ketorolac IM 60 mg IM once Route: IM; Site: right deltoid; mt4 04:43 Follow up: Response: No adverse reaction mt4 01:55 Drug: Promethazine PO 25 mg PO once Route: PO; mt4 04:43 Follow up: Response: No adverse reaction mt4 01:55 Drug: Methocarbamol PO 1500 mg PO once Route: PO; mt4 04:43 Follow up: Response: No adverse reaction mt4 01:56 Drug: MethylPREDNISolone Sodium Succinate IM 125 mg IM once Route: IM; Site: left mt4 deltoid; 04:43 Follow up: Response: No adverse reaction mt4 Medication: 03:00 VIS not applicable for this client. mt4 Outcome: 02:19 Discharge ordered by . sp4 04:49 Discharged to home ambulatory, mt4 04:49 Condition: stable 04:49 Discharge instructions given to patient, Instructed on discharge instructions, follow up and referral plans. medication usage, Demonstrated understanding of instructions, follow-up care, medications, 04:49 Patient left the ED. mt4 Signatures: Geri Alonzo Sergey, MD MD sp4 Judah Wang, RN RN mt4
[2024-10-04 04:59] VITALS: TEMP 98.2
[2024-10-04 05:18] VITALS: BP 116/88; O2SAT 100
== END 2024-10-04 04:49 | disposition home or self-care (01) ==
LOC: ER 01:07
DX: R10.84 Generalized abdominal pain (principal); G89.29 Other chronic pain
CPT/HCPCS: 96372; 99284; Q0169; J2919

== ENCOUNTER 2024-10-05 06:54 | Emergency (ER) | payer OTHER ==
[2024-10-05] MEDS ORDERED: ONDANSETRON 4 MG/2 ML VIAL ONE (07:23)
[2024-10-05] MEDS ORDERED: FAMOTIDINE 20 MG/2 ML VIAL IV ONE (07:24)
[2024-10-05] MEDS ORDERED: NA CHLORIDE 0.9% 1,000 ML ONE (07:24)
[2024-10-05] MEDS ORDERED: MORPHINE 4 MG/ML SYR ONE (07:24)
[2024-10-05 08:02] LABS: Absolute Basophils 0.1 K/uL (0-0.5); Absolute Lymphocytes (CBC) 2.2 K/uL (0.7-4.9); Basophils % 0.8 % (0-1.3); Eosinophils % 0.3 % (0-4.4); Hematocrit 35.3 % (39.6-49.0); Hemoglobin 11.9 g/dL (13.6-17.9); Lymphocytes % 23.6 % (15.3-44.8); MCH 29.2 pg (27.0-35.0); MCHC 33.7 g/dL (32.0-36.0); MCV 86.8 fL (80-100); MPV 6.4 fL (7.6-11.3); Monocytes % 10.7 % (3.3-12.3); Neutrophils % 64.6 % (41.7-73.7); Nucleated Red Blood Cells % 0.1 % (0-0); Platelets 407 thou/uL (152-406); RBC Red Blood Cell Count 4.06 M/uL (4.33-5.43); Red Cell Distribution Width 14.9 % (12.1-15.2)
[2024-10-05 08:06] LABS: PT Prothrombin Time 10.8 SECONDS (9.4-12.5); Protime INR 1.03
--- NOTE | 2024-10-05 08:14 | RAD REPORT ---
EXAM: Chest Single View HISTORY: Abdominal distention;Chest pain COMPARISON: 07/02/2024 FINDINGS: LUNGS/PLEURA: The lungs are clear. No pleural effusions or pneumothorax. No pulmonary edema. MEDIASTINUM: The mediastinal silhouette is within normal limits. CARDIAC: The cardiac silhouette is within normal limits. UPPER ABDOMEN: No significant abnormality. BONES: No acute abnormality. LINES/TUBES/OTHER: N/A IMPRESSION: No evidence of acute cardiopulmonary disease.
[2024-10-05 08:23] LABS: ALT/SGPT 42 U/L (16-61); AST/SGOT 21 U/L (15-37); Albumin 3.6 g/dL (3.4-5.0); Albumin/Globulin Ratio 0.9 (1.1-1.8); Alkaline Phosphatase 69 U/L (45-117); Anion Gap 10.9 mEq/L (5.0-15.0); BUN Blood Urea Nitrogen 20 mg/dL (7-18); Bicarbonate 24 mEq/L (21-32); Bilirubin Total 0.3 mg/dL (0.2-1.0); Globulin 3.9 g/dL (2.3-3.5); Glomerular Filtration Rate 69 ml/min (=/>90); Glucose Level 105 mg/dL (74-106); Lipase 40 U/L (13-75); Magnesium 2.3 mg/dL (1.6-2.4); NT PRO-BNP 82 pg/mL (<125); Potassium 3.9 mEq/L (3.5-5.1); Protein, Total 7.5 g/dL (6.4-8.2); Sodium Level 139 mEq/L (136-145); Troponin High Sensitivity 4.6 pg/mL (<58.9)
[2024-10-05 08:24] LABS: Bilirubin Direct < 0.2 mg/dL (0-0.2); Bilirubin Indirect, Calculated 0.1 mg/dL (0.2-0.8)
[2024-10-05 08:53] LABS: Sqamous Epithelial None Seen /HPF (None Seen); Urine Bacteria None Seen /HPF (<20); Urine Bilirubin NEGATIVE (Negative); Urine Blood Negative (Negative); Urine Clarity Clear (Clear); Urine Color Colorless (Yellow); Urine Culture Reflex Order NOT NEEDED; Urine Glucose NEGATIVE (Negative); Urine Ketones NEGATIVE (Negative); Urine Microscopic Reflex YN ORDER UMIC; Urine Nitrite NEGATIVE (Negative); Urine Protein NEGATIVE (Negative); Urine RBC <5 /HPF (None Seen); Urine Urobilinogen Normal (Normal); Urine WBC <5 /HPF (<5)
--- NOTE | 2024-10-05 09:52 | RAD REPORT ---
EXAMINATION: CT ABDOMEN AND PELVIS WITH CONTRAST CLINICAL INDICATION: Male, 59 years old.ABD PAIN TECHNIQUE: CT abdomen and pelvis was performed, after the administration of IV contrast, as per depar tment protocol. Axial, sagittal and coronal reconstructions were obtained. One or more of the following dose reduction techniques were used: Automated exposure control, adjustment of the mA and/o r kV according to patient size, and/or iterative reconstruction. Unless otherwise specified, incidental findings do not require dedicated imaging follow-up. [id number]. COMPARISON: 09/11/2024 FINDINGS: LOWER CHEST: No acute process identified.No significant pericardial effusion. Small hiatal hernia. UPPER GI: No significant abnormality. LIVER: Hepatic steatosis, but otherwise unremarkable. GALLBLADDER/BILE DUCTS: Cholecystectomy. Mild extra-hepatic biliary ductal dilatation is likely relat ed to the post-cholecystectomy state. Consider correlating with LFT's.? PANCREAS: Prominent pancreatic duct which is similar. No mass identified. No peripancreatic infiltrat tereza changes. SPLEEN: Unremarkable. ADRENALS: No adrenal masses. KIDNEYS AND URETERS: No hydronephrosis.Low density and/or too small to characterize renal lesions whi ch are statistically benign. ABDOMINAL AORTA AND OTHER VESSELS: Mild atherosclerotic changes. PERITONEUM: No abnormal free fluid. No free air. LYMPH NODES: No pathologic lymphadenopathy. ABDOMINAL WALL: Laparotomy defect. SMALL BOWEL/COLON: Large colonic and rectal stool burden. No bowel obstruction. Sigmoid anastomosis.N ormal appendix. URINARY BLADDER: Underdistended but grossly unremarkable. REPRODUCTIVE ORGANS: No pathologic process. MUSCULOSKELETAL: Grade 1 anterolisthesis of L5 on S1. Moderate degenerative changes present at this l evel. ADDITIONAL FINDINGS: None. IMPRESSION: No acute or significant abnormalities seen in the abdomen or pelvis. Large formed stool burden in the colon, particularly the sigmoid and rectum consistent with constipation. No bowel obstruction.
--- NOTE | 2024-10-05 10:21 | ER ---
Nurse's Notes [facility] Name: Piter Iglesias Age: 59 yrs Sex: Male : 1965 Arrival Date: 10/05/2024 Time: 06:54 Bed 13 Private MD: Diagnosis: Constipation Presentation: 10/05 06:57 Chief complaint: EMS states: patient complaint of constipation \T\ abdominal pain rg5 radiating to the chest. Coronavirus screen: Client denies travel out of the [place] in the last 14 days. Ebola Screen: Patient negative for fever greater than or equal to 101.5 degrees Fahrenheit, and additional compatible Ebola Virus Disease symptoms. Initial Sepsis Screen: Does the patient meet any 2 criteria? No. Patient's initial sepsis screen is negative. Does the patient have a suspected source of infection? No. Patient's initial sepsis screen is negative. Risk Assessment: Do you want to hurt yourself or someone else? Patient reports no desire to harm self or others. Onset of symptoms was October 04, 2024. 06:57 Method Of Arrival: EMS rg5 06:57 Acuity: AISHA 3 rg5 Triage Assessment: 07:01 General: Appears in no apparent distress. Behavior is calm, cooperative. Pain: rg5 Complains of pain in abdomen Pain radiates to back Pain currently is 6 out of 10 on a pain scale. Quality of pain is described as aching, Pain began 1 day ago. GI: Reports lower abdominal pain, upper abdominal pain, constipation, nausea. : No signs and/or symptoms were reported regarding the genitourinary system. Musculoskeletal: Circulation, motion, and sensation intact. Range of motion:. Historical: - Allergies: 07:01 Nuts; rg5 - PMHx: 07:01 diabetes mellitus; rg5 - PSHx: 07:01 intestinal Surgery; Cholecystectomy; rg5 - Immunization history:: Adult Immunizations up to date. - Infectious Disease History:: Denies. - Social history:: Smoking status: Patient denies any tobacco usage or history of. Screenin:05 [facility] ED Fall Risk Assessment (Adult) History of falling in the last 3 months, rg5 including since admission No falls in past 3 months (0 pts) Confusion or Disorientation No (0 pts) Intoxicated or Sedated No (0 pts) Impaired Gait No (0 pts) Mobility Assist Device Used No (0 pt) Altered Elimination No (0 pt) Score/Fall Risk Level 0 - 2 = Low Risk Oriented to surroundings, Maintained a safe environment, Hourly rounding (assess needs \T\ fall precautionary measures) done. Abuse screen: Denies threats or abuse. Nutritional screening: No deficits noted. Tuberculosis screening: No symptoms or risk factors identified. Assessment: 07:05 Reassessment: SEE TRIAGE ASSESSMENT. rg5 07:56 General: Appears in no apparent distress. comfortable, well groomed, Behavior is calm, ph cooperative, appropriate for age. Pain: Complains of pain in chest and abdomen. Neuro: Level of Consciousness is awake, alert, obeys commands, Oriented to person, place, time, situation. Cardiovascular: Capillary refill < 3 seconds in bilateral fingers Patient's skin is warm and dry. Cardiovascular: Reports chest pain. Respiratory: Airway is patent Respiratory effort is even, unlabored. GI: Abdomen is non-distended, Bowel sounds present X 4 quads. Abd is soft X 4 quads Reports lower abdominal pain, upper abdominal pain, constipation. Derm: Skin is pink, warm \T\ dry. Musculoskeletal: Circulation, motion, and sensation intact. Range of motion: intact in all extremities. 10:02 Reassessment: Patient appears in no apparent distress at this time. Patient and/or ph family updated on plan of care and expected duration. Pain level reassessed. Patient is alert, oriented x 3, equal unlabored respirations, skin warm/dry/pink. 10:57 Reassessment: Pt in restroom to attempt BM, will d/c when back in exam room. ph Vital Signs: 07:01 BP 120 / 89; Pulse 77; Resp 17; Temp 98; Pulse Ox 100% on R/A; Weight 81.65 kg; Height rg5 5 ft. 3 in. ; 08:54 BP 135 / 82; Pulse 74; Resp 18; Pulse Ox 100% on R/A; ph 10:02 BP 129 / 78; Pulse 80; Resp 18; Pulse Ox 98% on R/A; ph 07:01 Body Mass Index 31.89 (81.65 kg, 160.02 cm) rg5 ED Course: 06:55 Patient arrived in ED. rg5 07:00 Triage completed. rg5 07:01 Arm band placed on right wrist. rg5 07:05 Patient has correct armband on for positive identification. Bed in low position. Call rg5 light in reach. Side rails up X 1. Door closed. Noise minimized. Warm blanket given. Verbal reassurance given. 07:05 No provider procedures requiring assistance completed. Patient maintains SpO2 rg5 saturation greater than 95% on room air. 07:12 Rhonda Gentile, RN is Primary Nurse. ph 07:13 Barry Ureña MD is Attending Physician. reece 07:49 Basic Metabolic Panel Sent. ph 07:49 CBC with Diff Sent. ph 07:49 LFT's Sent. ph 07:49 Magnesium Sent. ph 07:49 NT PRO-BNP Sent. ph 07:49 PT-INR Sent. ph 07:49 Troponin HS Sent. ph 07:54 Initial lab(s) drawn, by me, sent to lab. EKG done, by ED staff, reviewed by Barry Ureña MD. Inserted saline lock: 22 gauge in right antecubital area, using aseptic technique. Blood collected. Flushed with 10 mL NS. 08:11 XRAY Chest (1 view) In Process Unspecified. EDMS 08:53 Urinalysis w/ reflexes Sent. ph 08:53 Urine collected: clean catch specimen, clear. ph 09:40 CT Abd/Pelvis - PO and IV Contrast In Process Unspecified. EDMS 10:20 Abbey Shah MD is Referral Physician. reece Administered Medications: 07:49 Drug: NS 0.9% IV 1000 ml IV at 1 bolus Per protocol; to be given as a bolus over 60 ph minutes Route: IV; Rate: 1 bolus; Site: right antecubital; 09:00 Follow up: Response: No adverse reaction; IV Status: Completed infusion; IV Intake: ph 1000ml 07:49 Drug: Famotidine IVP 20 mg IVP once; dilute with 10 mL 0.9% NaCl; give over 2 minutes ph Route: IVP; Site: right antecubital; 08:30 Follow up: Response: No adverse reaction ph 07:49 Drug: morphine IVP or IV 4 mg IVP once over 4 mins Route: IVP; Infused Over: 4 mins; ph Site: right antecubital; 08:30 Follow up: Response: No adverse reaction ph 07:49 Drug: Ondansetron IVP 4 mg IVP once; over 2 minutes Route: IVP; Site: right antecubital;ph 08:30 Follow up: Response: No adverse reaction ph 10:38 Drug: Dulcolax VA Suppository 10 mg VA once Route: VA; ph 10:45 Follow up: Response: No adverse reaction ph 10:38 Drug: Lactulose PO 60 grams 45 ml PO once Volume: 45 ml; Route: PO; ph 10:45 Follow up: Response: No adverse reaction ph Medication: 07:05 VIS not applicable for this client. rg5 Intake: 09:00 IV: 1000ml; Total: 1000ml. ph Outcome: 10:21 Discharge ordered by . reece 11:31 Patient left the ED. ph 11:31 Discharged to home ambulatory, ph 11:31 Condition: good 11:31 Discharge instructions given to patient, Instructed on discharge instructions, follow up and referral plans. medication usage, Demonstrated understanding of instructions, follow-up care, medications, Prescriptions given X 2, Signatures: Dispatcher [employer] EDTX Barry Ureña MD MD cha Hall, Patricia RN RN Mckinley Villarreal RN RN rg5
--- NOTE | 2024-10-05 10:21 | EDPHYS ---
Physician Documentation [facility] Name: Piter Iglesias Age: 59 yrs Sex: Male : 1965 Arrival Date: 10/05/2024 Time: 06:54 Bed 13 Private MD: ED Physician Barry Ureña HPI: 10/05 10:16 This 59 yrs old Black Male presents to ER via EMS with complaints of Abdominal Pain, reece Constipation, Chest Pain. 10:16 The patient or guardian reports chest pain that is located primarily in the epigastric reece area. Onset: 3 day(s) ago. The pain does not radiate. Associated signs and symptoms: Pertinent positives: abdominal pain. The chest pain is described as aching. Severity of pain: At its worst the pain was mild in the emergency department the pain is unchanged. The patient has experienced similar episodes in the past, multiple times. Historical: - Allergies: 07:01 Nuts; rg5 - PMHx: 07:01 diabetes mellitus; rg5 - PSHx: 07:01 intestinal Surgery; Cholecystectomy; rg5 - Immunization history:: Adult Immunizations up to date. - Infectious Disease History:: Denies. - Social history:: Smoking status: Patient denies any tobacco usage or history of. ROS: 10:17 Constitutional: Negative for fever, chills, and weight loss, Eyes: Negative for injury, reece pain, redness, and discharge, ENT: Negative for injury, pain, and discharge, Neck: Negative for injury, pain, and swelling, Cardiovascular: Negative for chest pain, palpitations, and edema, Respiratory: Negative for shortness of breath, cough, wheezing, and pleuritic chest pain, Back: Negative for injury and pain, : Negative for injury, bleeding, discharge, and swelling, MS/Extremity: Negative for injury and deformity, Skin: Negative for injury, rash, and discoloration, Neuro: Negative for headache, weakness, numbness, tingling, and seizure, Psych: Negative for depression, anxiety, suicide ideation, homicidal ideation, and hallucinations, Allergy/Immunology: Negative for hives, rash, and allergies, Endocrine: Negative for neck swelling, polydipsia, polyuria, polyphagia, and marked weight changes, Hematologic/Lymphatic: Negative for swollen nodes, abnormal bleeding, and unusual bruising, 10:17 Abdomen/GI: Positive for abdominal pain, constipation, abdominal cramps, Exam: 10:17 Constitutional: This is a well developed, well nourished patient who is awake, alert, reece and in no acute distress. Head/Face: Normocephalic, atraumatic. Eyes: Pupils equal round and reactive to light, extra-ocular motions intact. Lids and lashes normal. Conjunctiva and sclera are non-icteric and not injected. Cornea within normal limits. Periorbital areas with no swelling, redness, or edema. ENT: Nares patent. No nasal discharge, no septal abnormalities noted. Tympanic membranes are normal and external auditory canals are clear. Oropharynx with no redness, swelling, or masses, exudates, or evidence of obstruction, uvula midline. Mucous membranes moist. Neck: Trachea midline, no thyromegaly or masses palpated, and no cervical lymphadenopathy. Supple, full range of motion without nuchal rigidity, or vertebral point tenderness. No Meningismus. Chest/axilla: Normal chest wall appearance and motion. Nontender with no deformity. No lesions are appreciated. Cardiovascular: Regular rate and rhythm with a normal S1 and S2. No gallops, murmurs, or rubs. Normal PMI, no JVD. No pulse deficits. Respiratory: Lungs have equal breath sounds bilaterally, clear to auscultation and percussion. No rales, rhonchi or wheezes noted. No increased work of breathing, no retractions or nasal flaring. Back: No spinal tenderness. No costovertebral tenderness. Full range of motion. Male : Normal genitalia with no discharge or lesions. Skin: Warm, dry with normal turgor. Normal color with no rashes, no lesions, and no evidence of cellulitis. MS/ Extremity: Pulses equal, no cyanosis. Neurovascular intact. Full, normal range of motion., bilateral aka Neuro: Awake and alert, GCS 15, oriented to person, place, time, and situation. Cranial nerves II-XII grossly intact. Motor strength 5/5 in all extremities. Sensory grossly intact. Cerebellar exam normal. Normal gait. Psych: Awake, alert, with orientation to person, place and time. Behavior, mood, and affect are within normal limits. 10:17 ECG was reviewed by the Attending Physician. Vital Signs: 07:01 BP 120 / 89; Pulse 77; Resp 17; Temp 98; Pulse Ox 100% on R/A; Weight 81.65 kg; Height rg5 5 ft. 3 in. ; 08:54 BP 135 / 82; Pulse 74; Resp 18; Pulse Ox 100% on R/A; ph 10:02 BP 129 / 78; Pulse 80; Resp 18; Pulse Ox 98% on R/A; ph 07:01 Body Mass Index 31.89 (81.65 kg, 160.02 cm) rg5 MDM: 07:13 Medical Screening Exam initiated reece 10:18 Differential diagnosis: abnormal EKG, acute myocardial infarction, acute pericarditis, reece anxiety, chest wall pain, Cholelithiasis costochondritis, esophagitis, hiatal hernia, pancreatitis, peptic ulcer disease, pericarditis, pneumonia, pulmonary embolus, stable angina, thoracic aortic disection, unstable angina. HEART Score: History: Slightly Suspicious (0), ECG: Non specific repolarization disturbance / LBTB / PM (1), Age: > 45 and < 65 years (1), Risk Factors: 1 or 2 risk factors (1), [DM] [+ Family HX] Troponin: < or = 1 x Normal Limit (0), Total Score = 3. The patient was not given aspirin in the Emergency Department. Patient reports taking aspirin within the past 24 hours. BOBBY Risk Score: 1 - Recent [<24hrs] Severe Angina, TOTAL SCORE = 1. Data reviewed: vital signs, nurses notes, lab test result(s), EKG, radiologic studies, CT scan, plain films. Consideration of Admission/Observation Escalation of care including admission/observation considered. I considered the following discharge prescriptions or medication management in the emergency department Medications were administered in the Emergency Department. See MAR. Independent interpretation of the following test(s) in the Emergency Department EKG: See my EKG interpretation above. Test considered but Not performed: Ultrasound no abd usg. Care significantly affected by the following chronic conditions: Diabetes. 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 10/05 07:17 Order name: Basic Metabolic Panel; Complete Time: 09:37 reece 10/05 07:17 Order name: CBC with Diff; Complete Time: 09:37 10/05 07:17 Order name: LFT's; Complete Time: 09:37 10/05 07:17 Order name: Magnesium; Complete Time: 09:37 reece 10/05 07:17 Order name: NT PRO-BNP; Complete Time: 09:37 10/05 07:17 Order name: PT-INR; Complete Time: 09:37 10/05 07:17 Order name: Troponin HS; Complete Time: 09:37 10/05 07:17 Order name: Lipase; Complete Time: 09:37 10/05 07:17 Order name: Urinalysis w/ reflexes; Complete Time: 09:37 10/05 07:17 Order name: XRAY Chest (1 view); Complete Time: 09:37 [facility] 10/05 07:17 Order name: CT Abd/Pelvis - PO and IV Contrast; Complete Time: 10:15 10/05 07:17 Order name: Cardiac monitoring; Complete Time: 07:49 10/05 07:17 Order name: EKG - Nurse/Tech; Complete Time: 07:49 10/05 07:17 Order name: IV Saline Lock; Complete Time: 07:49 10/05 07:17 Order name: Labs collected and sent; Complete Time: 07:49 10/05 07:17 Order name: O2 Per Protocol; Complete Time: 07:49 10/05 07:17 Order name: O2 Sat Monitoring; Complete Time: 07:49 [facility] EC:17 Rate is 72 beats/min. Rhythm is regular. QRS [place] is Normal. NC interval is normal. QRS reece interval is normal. QT interval is normal. No Q waves. T waves are Normal. No ST changes noted. Clinical impression: NSR w/ Non-specific ST/T Changes and No evidence of ischemia. Interpreted by me. Reviewed by me. Administered Medications: 07:49 Drug: NS 0.9% IV 1000 ml IV at 1 bolus Per protocol; to be given as a bolus over 60 ph minutes Route: IV; Rate: 1 bolus; Site: right antecubital; 09:00 Follow up: Response: No adverse reaction; IV Status: Completed infusion; IV Intake: ph 1000ml 07:49 Drug: Famotidine IVP 20 mg IVP once; dilute with 10 mL 0.9% NaCl; give over 2 minutes ph Route: IVP; Site: right antecubital; 08:30 Follow up: Response: No adverse reaction ph 07:49 Drug: morphine IVP or IV 4 mg IVP once over 4 mins Route: IVP; Infused Over: 4 mins; ph Site: right antecubital; 08:30 Follow up: Response: No adverse reaction ph 07:49 Drug: Ondansetron IVP 4 mg IVP once; over 2 minutes Route: IVP; Site: right antecubital;ph 08:30 Follow up: Response: No adverse reaction ph 10:38 Drug: Dulcolax NC Suppository 10 mg NC once Route: NC; ph 10:45 Follow up: Response: No adverse reaction ph 10:38 Drug: Lactulose PO 60 grams 45 ml PO once Volume: 45 ml; Route: PO; ph 10:45 Follow up: Response: No adverse reaction ph Disposition Summary: 10/05/24 10:21 Discharge Ordered Notes: Location: Home reece Problem: new reece Symptoms: have improved reece Condition: Stable reece Diagnosis - Constipation reece Followup: reece - With: Private Physician - When: 2 - 3 days - Reason: Recheck today's complaints, Continuance of care, Re-evaluation by your physician Followup: reece - With: Abbey Shah MD - When: 2 - 3 days - Reason: Recheck today's complaints, Re-evaluation by your physician Discharge Instructions: - Discharge Summary Sheet reece - Constipation, Adult reece - Constipation, Adult, [id number] [facility] Forms: - Medication Reconciliation Form [facility] - Antibiotic Education reece - Prescription Opioid Use reece - Patient Portal Instructions [facility] - Leadership Thank You Letter [facility] Prescriptions: - Dulcolax (bisacodyl) 10 mg Rectal suppository - insert 1 suppository RECTAL route every 12 hours for 5 days; 10 suppository; [facility] Refills: 0, Product Selection Permitted - Lactulose 10 gram/15 mL Oral solution - take 30 milliliters ORAL route every 12 hours; 300 milliliter; Refills: 0, [facility] Product Selection Permitted Signatures: Dispatcher [employer] Barry Win MD MD cha Hall, Patricia RN RN ph Mckinley Villarreal RN RN rg5 Corrections: (The following items were deleted from the chart) 07:18 07:18 BASIC METABOLIC PANEL+C.LAB.BRZ ordered. EDMS EDMS 07:18 07:18 CBC+H.LAB.BRZ ordered. EDMS EDMS 07:18 07:18 HEPATIC FUNCTION+C.LAB.BRZ ordered. EDMS EDMS 07:18 07:18 MAGNESIUM+C.LAB.BRZ ordered. EDMS EDMS 07:18 07:18 PROBNP+C.LAB.BRZ ordered. EDMS EDMS 07:18 07:18 PROTIME (+INR)+COAG.LAB.BRZ ordered. EDMS EDMS 07:18 07:18 Troponin High Sensitivity+C.LAB.BRZ ordered. EDMS EDMS 07:18 07:18 LIPASE+C.LAB.BRZ ordered. EDMS EDMS 07:18 07:18 Urinalysis+U.LAB.BRZ ordered. EDMS EDMS 07:18 07:18 Chest Single View+RAD.RAD.BRZ ordered. EDMS EDMS 07:18 07:18 Abdomen Pelvis W Con+CT.RAD.BRZ ordered. EDMS EDMS
[2024-10-05] MEDS ORDERED: BISACODYL 10 MG RECTAL SUPP ONE (10:29)
[2024-10-05] MEDS ORDERED: LACTULOSE 20 GM/30 ML UCUP ONE (10:29)
[2024-10-05 12:14] VITALS: TEMP 97.9; O2SAT 99
[2024-10-05 12:15] VITALS: BP 155/99
== END 2024-10-05 11:31 | disposition home or self-care (01) ==
LOC: ER 06:54
DX: K59.00 Constipation, unspecified (principal); E11.9 Type 2 diabetes mellitus without complications; Z91.018 Allergy to other foods
CPT/HCPCS: 96361; 85025; 81001; 80048; 36415; 83735; 85610; 80076; 84484; 83690; 83880; 74177; 71045; 96375; 96374; 99284; Q9967; J2405; J7030

== ENCOUNTER 2024-10-13 12:53 | Emergency (ER) | payer OTHER ==
[2024-10-13] MEDS ORDERED: ONDANSETRON 4 MG/2 ML VIAL ONE (13:06)
[2024-10-13] MEDS ORDERED: MORPHINE 4 MG/ML SYR ONE (13:06)
[2024-10-13] MEDS ORDERED: NA CHLORIDE 0.9% 500 ML ONE (13:13)
[2024-10-13 13:25] LABS: Absolute Basophils 0.1 K/uL (0-0.5); Absolute Eosinophils 0.1 K/uL (0-0.5); Absolute Lymphocytes (CBC) 2.1 K/uL (0.7-4.9); Absolute Monocytes 0.6 K/uL (0.1-1.3); Absolute Neutrophil 2.7 K/uL (1.8-8.0); Eosinophils % 2.2 % (0-4.4); Hematocrit 32.9 % (39.6-49.0); Hemoglobin 10.9 g/dL (13.6-17.9); Lymphocytes % 37.3 % (15.3-44.8); MCH 28.3 pg (27.0-35.0); MCHC 33.2 g/dL (32.0-36.0); MCV 85.5 fL (80-100); MPV 6.2 fL (7.6-11.3); Monocytes % 10.7 % (3.3-12.3); Neutrophils % 48.8 % (41.7-73.7); Nucleated Red Blood Cells % 0.1 % (0-0); Platelets 270 thou/uL (152-406); RBC Red Blood Cell Count 3.85 M/uL (4.33-5.43); Red Cell Distribution Width 14.8 % (12.1-15.2)
[2024-10-13 13:42] LABS: Albumin 3.4 g/dL (3.4-5.0); Anion Gap 9.8 mEq/L (5.0-15.0); Bilirubin Total 0.2 mg/dL (0.2-1.0); Globulin 3.3 g/dL (2.3-3.5); Potassium 3.8 mEq/L (3.5-5.1); Protein, Total 6.7 g/dL (6.4-8.2)
--- NOTE | 2024-10-13 15:03 | RAD REPORT ---
EXAMINATION: CT ABDOMEN AND PELVIS WITH CONTRAST CLINICAL INDICATION: Male, 59 years old.Abd pain;Nausea / vomiting TECHNIQUE: CT abdomen and pelvis was performed, after the administration of IV contrast, as per [facility] protocol. Axial, sagittal and coronal reconstructions were obtained. One or more of the following dose reduction techniques were used: Automated exposure control, adjustment of the mA and/o r kV according to patient size, and/or iterative reconstruction. Unless otherwise specified, incidental findings do not require dedicated imaging follow-up. [id number]. COMPARISON: 10/05/2024 FINDINGS: LOWER CHEST: No acute process identified.No significant pericardial effusion. Moderate circumferentia l thickening of the distal esophagus which could reflect esophagitis. Endoscopy could better evaluate. UPPER GI: No significant abnormality. LIVER: Hepatic steatosis, but otherwise unremarkable. GALLBLADDER/BILE DUCTS: Cholecystectomy. Mild extra-hepatic biliary ductal dilatation is likely relat ed to the post-cholecystectomy state. Consider correlating with LFT's.? PANCREAS: No mass, ductal dilation, or carline-pancreatic fluid. SPLEEN: Unremarkable. ADRENALS: No adrenal masses. KIDNEYS AND URETERS: No hydronephrosis.Low density and/or too small to characterize renal lesions whi ch are statistically benign. ABDOMINAL AORTA AND OTHER VESSELS: Mild atherosclerotic changes. PERITONEUM: No abnormal free fluid. No free air. LYMPH NODES: No pathologic lymphadenopathy. ABDOMINAL WALL: Unremarkable SMALL BOWEL/COLON: Small bowel has normal course and caliber. No colonic wall thickening or pericolon ic inflammatory changes.Normal appendix. Moderate colonic stool. URINARY BLADDER: Underdistended but grossly unremarkable. REPRODUCTIVE ORGANS: No pathologic process. MUSCULOSKELETAL: ADDITIONAL FINDINGS: None. IMPRESSION: 1. Moderate formed stool burden the colon which could indicate constipation. No bowel obstruction. 2.Moderate thickening distal esophagus concerning for esophagitis. Endoscopy could better evaluate.
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
--- NOTE | 2024-10-13 16:17 | ER ---
Nurse's Notes [facility] Name: Piter Iglesias Age: 59 yrs Sex: Male : 1965 Arrival Date: 10/13/2024 Time: 12:53 Bed 11 Private MD: Diagnosis: Constipation, unspecified;Esophagitis, unspecified Presentation: 10/13 12:58 Chief complaint: EMS states: chronic abdominal pain with nausea, had lunch, been ko1 hurting since yesterday, comes here frequently for same complaint, states he feels better with IV morphine. Has appt with pain on monday. Coronavirus screen: At this time, the client does not indicate any symptoms associated with coronavirus-19. Ebola Screen: No symptoms or risks identified at this time. Initial Sepsis Screen: Does the patient meet any 2 criteria? No. Patient's initial sepsis screen is negative. Does the patient have a suspected source of infection? No. Patient's initial sepsis screen is negative. Risk Assessment: Do you want to hurt yourself or someone else? Patient reports no desire to harm self or others. Onset of symptoms is unknown. 12:58 Method Of Arrival: EMS: [facility] ko1 12:58 Acuity: AISHA 3 ko1 12:58 Care prior to arrival: Medication(s) given: zofran 4 mg, toradol 15 mg IV IV initiated. ko1 20 GA, in the left hand. Triage Assessment: 13:02 General: Appears in no apparent distress. Behavior is calm, cooperative, appropriate ko1 for age. Pain: Complains of pain in abdomen. Historical: - Allergies: 13:02 Grass; ko1 13:02 NKDA; ko1 13:02 Nuts; ko1 13:02 Pollen; ko1 - PMHx: 13:02 elevated creatinine levels; Anxiety; diabetes mellitus; Asthma; Hypertension; spinal ko1 stenosis; Hyperlipidemia; ulcerative colitis; elevated liver enzymes; depressive disorder; Crohn's Disease; - PSHx: 13:02 Cholecystectomy; intestinal Surgery; ko1 - Immunization history:: Adult Immunizations unknown. - Infectious Disease History:: Denies. - Social history:: Smoking status: . - Family history:: not pertinent. - Hospitalizations: : No recent hospitalization is reported. Screenin:21 [facility] ED Fall Risk Assessment (Adult) History of falling in the last 3 months, ko1 including since admission No falls in past 3 months (0 pts) Confusion or Disorientation No (0 pts) Intoxicated or Sedated No (0 pts) Impaired Gait No (0 pts) Mobility Assist Device Used No (0 pt) Altered Elimination No (0 pt) Score/Fall Risk Level 0 - 2 = Low Risk Oriented to surroundings, Maintained a safe environment, Educated pt \T\ family on fall prevention, incl call for assistance when getting out of bed, Assessed \T\ reinforced patient's understanding of fall precautions, Hourly rounding (assess needs \T\ fall precautionary measures) done. Abuse screen: Denies threats or abuse. Denies injuries from another. Nutritional screening: No deficits noted. Tuberculosis screening: No symptoms or risk factors identified. Assessment: 13:10 Reassessment: patient sleeping soundly, no distress noted, woke patient up to inform ko1 him he was getting morphine for pain. Patient verbalized understanding. Vital Signs: 12:58 BP 130 / 81; Pulse 86; Resp 15; Temp 97.6; Pulse Ox 99% on R/A; ko1 16:15 BP 132 / 78; Pulse 81; Resp 16; Pulse Ox 100% ; ko1 ED Course: 12:56 Patient arrived in ED. ko1 12:56 Felipe Estrella MD is Attending Physician. rn 12:57 Emiliana Cruz, YUSUF is Primary Nurse. ko1 13:00 Inserted saline lock: 20 gauge in right forearm, using aseptic technique. Blood ko1 collected. Flushed with 10 mL NS Maintain EMS IV. Dressing intact. Good blood return noted. Site clean \T\ dry. Gauge \T\ site: 20g left hand. Flushed with 10 mL NS. 13:02 Triage completed. ko1 13:02 Arm band placed on right wrist. Patient placed in an exam room, on a stretcher, on ko1 pulse oximetry, Patient notified of wait time. 14:21 Patient has correct armband on for positive identification. Allergy band placed. Bed in ko1 low position. Call light in reach. Side rails up X2. Provided Education on: labs, meds. Client placed on continuous cardiac and pulse oximetry monitoring. NIBP monitoring applied. teletypesetter monitor on. Door closed. Noise minimized. Lights dimmed. Warm blanket given. Pillow given. 14:21 No provider procedures requiring assistance completed. ko1 14:39 CT Abd/Pelvis - IV Contrast Only In Process Unspecified. EDMS 16:15 IV discontinued, intact, bleeding controlled, No redness/swelling at site. Pressure ko1 dressing applied. 16:16 Adarsh Simmons MD is Referral Physician. rn Administered Medications: 12:58 Drug: Ondansetron IVP 4 mg IVP once; over 2 minutes Route: IVP; Site: left hand; ko1 13:13 Follow up: Response: No adverse reaction ko1 13:20 Drug: morphine IVP or IV 4 mg IVP once over 4 mins Route: IVP; Infused Over: 4 mins; ko1 Site: right forearm; 13:35 Follow up: Response: No adverse reaction ko1 13:20 Drug: NS 0.9% IV 500 ml 500 ml IV at 1 bolus once; to be given as a bolus over 30 ko1 minutes Volume: 500 ml; Route: IV; Rate: 1 bolus; Site: right forearm; 14:20 Follow up: Response: No adverse reaction; IV Status: Completed infusion; IV Intake: ko1 500ml Medication: 14:22 VIS not applicable for this client. ko1 Intake: 14:20 IV: 500ml; Total: 500ml. ko1 Outcome: 16:17 Discharge ordered by . rn 16:46 Discharged to home via wheelchair, with family, ko1 16:46 Condition: stable 16:46 Discharge instructions given to patient, Instructed on discharge instructions, follow up and referral plans. medication usage, Demonstrated understanding of instructions, follow-up care, medications, Prescriptions given X 1, 16:46 Patient left the ED. ko1 Signatures: Dispatcher [employer] EDMS Felipe Estrella MD MD rn Oliver, Kathy, RN RN ko1
[2024-10-13 19:47] VITALS: TEMP 97.6
[2024-10-13 19:48] VITALS: BP 132/78; O2SAT 100
== END 2024-10-13 16:46 | disposition home or self-care (01) ==
LOC: ER 12:53
DX: K59.00 Constipation, unspecified (principal); K20.90 Esophagitis, unspecified without bleeding
CPT/HCPCS: 85025; 36415; 83690; 80053; 74177; 99285; Q9967; J2405; J7040

== ENCOUNTER 2024-10-24 01:53 | Emergency (ER) | payer OTHER ==
[2024-10-24] MEDS ORDERED: MORPHINE 4 MG/ML SYR ONE (02:59)
[2024-10-24] MEDS ORDERED: ONDANSETRON 4 MG/2 ML VIAL ONE (02:59)
[2024-10-24 04:21] LABS: Absolute Eosinophils 0.1 K/uL (0-0.5); Absolute Lymphocytes (CBC) 2.7 K/uL (0.7-4.9); Absolute Monocytes 0.9 K/uL (0.1-1.3); Absolute Neutrophil 4.3 K/uL (1.8-8.0); Basophils % 0.5 % (0-1.3); Eosinophils % 0.9 % (0-4.4); Hematocrit 37.2 % (39.6-49.0); Hemoglobin 12.1 g/dL (13.6-17.9); Lymphocytes % 33.3 % (15.3-44.8); MCHC 32.6 g/dL (32.0-36.0); MCV 85.8 fL (80-100); MPV 6.3 fL (7.6-11.3); Monocytes % 11.5 % (3.3-12.3); Neutrophils % 53.8 % (41.7-73.7); Nucleated Red Blood Cells % 0.4 % (0-0); Platelets 341 thou/uL (152-406); RBC Red Blood Cell Count 4.33 M/uL (4.33-5.43); Red Cell Distribution Width 15.5 % (12.1-15.2)
[2024-10-24 04:27] LABS: Albumin 3.8 g/dL (3.4-5.0); Anion Gap 7.9 mEq/L (5.0-15.0); Bilirubin Total 0.2 mg/dL (0.2-1.0); Globulin 3.9 g/dL (2.3-3.5); Potassium 3.9 mEq/L (3.5-5.1); Protein, Total 7.7 g/dL (6.4-8.2)
--- NOTE | 2024-10-24 06:59 | RAD REPORT ---
EXAMINATION: CT ABDOMEN AND PELVIS WITHOUT CONTRAST CLINICAL INDICATION: Male, 59 years old.ABD PAIN TECHNIQUE: CT abdomen and pelvis was performed, without IV contrast, as per department protocol. Axia l, sagittal and coronal reconstructions were obtained. One or more of the following dose reduction techniques were used: Automated exposure control, adjustment of the mA and/or kV according to the pat ient size, and/or iterative reconstruction. Unless otherwise specified, incidental findings do not require dedicated imaging follow-up. [id number]. IV CONTRAST: Not administered. COMPARISON: 10/13/2024 FINDINGS: The lack of intravenous contrast limits the sensitivity of this exam for evaluation of solid visceral organs, vascular structures, and retroperitoneum. LOWER CHEST: No acute process identified.No significant pericardial effusion. Moderately thickened di stal esophagus. UPPER GI: No significant abnormality. LIVER: No significant focal abnormality. GALLBLADDER/BILE DUCTS: Cholecystectomy. Moderate extra-hepatic biliary ductal dilatation is likely r elated to the post-cholecystectomy state. Consider correlating with LFT's.? PANCREAS: No mass, ductal dilation, or carline-pancreatic fluid. SPLEEN: Unremarkable. ADRENALS: No adrenal masses. KIDNEYS AND URETERS: No hydronephrosis.Within the limitations of a noncontrast CT, no suspicious franc l lesions. ABDOMINAL AORTA AND OTHER VESSELS: Mild atherosclerotic changes. PERITONEUM: No abnormal free fluid. No free air. LYMPH NODES: No pathologic lymphadenopathy. ABDOMINAL WALL: Unremarkable SMALL BOWEL/COLON: Large volume of stool in the sigmoid colon and upper rectum.There is also a large volume of stool in the ascending and transverse colon. URINARY BLADDER: Underdistended but grossly unremarkable. REPRODUCTIVE ORGANS: No pathologic process. MUSCULOSKELETAL: Grade 1 anterolisthesis of L5 on S1 ADDITIONAL FINDINGS: None. IMPRESSION: 1. Moderate to large volume of stool at the sigmoid likely reflecting constipation. No bowel obstruct ion. 2. Moderately thickened distal esophagus. This likely represents esophagitis. Could consider further evaluation with endoscopy. 3. Cholecystomy with similar extrahepatic biliary duct dilatation. Correlate with LFTs.
--- NOTE | 2024-10-24 07:05 | EDPHYS ---
Physician Documentation [facility] Name: Piter Iglesias Age: 59 yrs Sex: Male : 1965 Arrival Date: 10/24/2024 Time: 01:53 Bed DX1 Private MD: ED Physician Felipe Estrella HPI: 10/24 02:26 This 59 yrs old Black Male presents to ER via EMS with complaints of Abdominal Pain, rn Constipation, Low Back Pain. 02:26 The patient presents with abdominal pain in the left lower quadrant. Onset: The rn symptoms/episode began/occurred yesterday. The symptoms do not radiate. Modifying factors: The symptoms are alleviated by nothing, the symptoms are aggravated by touching the area. Severity of pain: At its worst the pain was mild in the emergency department the pain is unchanged. The patient has experienced similar episodes in the past. Patient reports having left lower quadrant abdominal pain again. Reports associated with constipation. Has dealt with constipation chronically but has also had small bowel obstruction in the past. No fever or chills. No vomiting.. Historical: - Allergies: 02:10 Grass; lg3 02:10 NKDA; lg3 02:10 Nuts; lg3 02:10 Pollen; lg3 - PMHx: 02:10 elevated creatinine levels; Anxiety; Asthma; Crohn's Disease; depressive disorder; lg3 diabetes mellitus; elevated liver enzymes; Hyperlipidemia; Hypertension; spinal stenosis; ulcerative colitis; - PSHx: 02:10 Cholecystectomy; intestinal Surgery; lg3 - Immunization history:: Adult Immunizations up to date. - Infectious Disease History:: Denies. - Social history:: Smoking status: Patient denies any tobacco usage or history of. Patient/guardian denies using alcohol, street drugs. - Family history:: not pertinent. - Hospitalizations: : No recent hospitalization is reported. ROS: 02:26 Constitutional: Negative for fever, chills, and weight loss, Cardiovascular: Negative rn for chest pain, palpitations, and edema, Respiratory: Negative for shortness of breath, cough, wheezing, and pleuritic chest pain, Abdomen/GI: Positive for abdominal pain and constipation MS/Extremity: Negative for injury and deformity, Skin: Negative for injury, rash, and discoloration, Neuro: Negative for headache, weakness, numbness, tingling, and seizure, Exam: 02:26 Constitutional: This is a well developed, well nourished patient who is awake, alert, rn and in no acute distress. Playing video games on his phone as he talks to me. Cardiovascular: Regular rate and rhythm. No pulse deficits. Respiratory: No increased work of breathing, no retractions or nasal flaring. Abdomen/GI: Soft, mild left lower quadrant tenderness. No rebound or guarding. Multiple large surgical scars on abdomen Vital Signs: 02:09 BP 128 / 93; Pulse 76; Resp 17 S; Temp 97.4(O); Pulse Ox 100% on R/A; Weight 86.18 kg lg3 (R); Height 5 ft. 3 in. (R); 05:40 BP 135 / 90; Pulse 70; Resp 18; Pulse Ox 100% on R/A; rv1 02:09 Body Mass Index 33.66 (86.18 kg, 160.02 cm) lg3 MDM: 01:57 Medical Screening Exam initiated rn 07:02 Differential diagnosis: bowel obstruction, non-specific abd pain, obstruction, rn impaction. Data reviewed: vital signs, nurses notes, lab test result(s), radiologic studies, CT scan, and as a result, I will discharge patient. Counseling: I had a detailed discussion with the patient and/or guardian regarding the historical points, exam findings, and any diagnostic results supporting the discharge/admit diagnosis, lab results, radiology results, the need for outpatient follow up, to return to the emergency department if symptoms worsen or persist or if there are any questions or concerns that arise at home. Response to treatment: the patient's symptoms have markedly improved after treatment, and as a result, I will discharge patient. ED course: No acute findings in CT. Still shows constipation and esophagitis as it has in the past. Most importantly did not show bowel obstruction. Will send home with instructions for hydration and laxatives with return precautions.. 10/24 02:15 Order name: CBC with Diff; Complete Time: : rn 10/24 02:15 Order name: CMP; Complete Time: : rn 10/24 02:15 Order name: Lipase; Complete Time: : rn 10/24 05:12 Order name: Abdomen ; Complete Time: 07:02 EDMS 10/24 02:15 Order name: IV Saline Lock; Complete Time: 03:30 rn 10/24 02:15 Order name: Labs collected and sent; Complete Time: 03:30 rn Administered Medications: 03:29 Drug: morphine IVP or IV 4 mg IVP once over 4 mins Route: IVP; Infused Over: 4 mins; lg3 Site: left forearm; 04:53 Follow up: Response: No adverse reaction; Marked relief of symptoms lg3 03:30 Drug: Ondansetron IVP 4 mg IVP once; over 2 minutes Route: IVP; Site: left forearm; lg3 04:53 Follow up: Response: No adverse reaction lg3 Disposition Summary: 10/24/24 07:04 Discharge Ordered Notes: Location: Home rn Problem: an ongoing problem rn Symptoms: have improved rn Condition: Stable rn Diagnosis - Constipation, unspecified rn - Dehydration rn Followup: rn - With: Private Physician - When: As needed - Reason: Recheck today's complaints, Re-evaluation by your physician Discharge Instructions: - Discharge Summary Sheet rn - Constipation, Adult rn - Dehydration, Adult rn Forms: - Medication Reconciliation Form rn - Antibiotic rn hemodialysis charge - Prescription Opioid Use rn - Patient Portal Instructions rn - Leadership Thank You Letter rn Signatures: Dispatcher [employer] EDFelipe Cerda MD MD rn AbleDona RN RN lg3 Corrections: (The following items were deleted from the chart) 05:11 02:15 Abdomen Pelvis W Con+CT.RAD.BRZ ordered. EDNJ EDMS
--- NOTE | 2024-10-24 07:05 | ER ---
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 Coronavirus screen: Client denies travel out of the [place] in the last 14 days. At this time, the client does not indicate any symptoms associated with coronavirus-19. Ebola Screen: No symptoms or risks identified at this time. Initial Sepsis Screen: Does the patient meet any 2 criteria? No. Patient's initial sepsis screen is negative. Does the patient have a suspected source of infection? No. Patient's initial sepsis screen is negative. Risk Assessment: Do you want to hurt yourself or someone else? Patient reports no desire to harm self or others. Onset of symptoms is unknown. 02:09 Method Of Arrival: EMS: [facility] lg3 02:09 Acuity: AISHA 4 lg3 Triage Assessment: 02:10 General: Appears in no apparent distress. comfortable, Behavior is calm, cooperative. lg3 Pain: Complains of pain in abdomen. EENT: No deficits noted. No signs and/or symptoms were reported regarding the EENT system. Neuro: No deficits noted. Campbell Agitation-Sedation Scale (RASS): 0 - Alert and Calm Level of Consciousness is awake, alert, obeys commands, Oriented to person, place, time, situation. Cardiovascular: No deficits noted. Denies chest pain, shortness of breath, Capillary refill < 3 seconds Clubbing of nail beds is absent. Respiratory: No deficits noted. Airway is patent Respiratory effort is even, unlabored, Respiratory pattern is regular, symmetrical. GI: Abdomen is round non-distended, obese, Bowel sounds present X 4 quads. Reports lower abdominal pain, upper abdominal pain, constipation, cramping. : No signs and/or symptoms were reported regarding the genitourinary system. Derm: No deficits noted. No signs and/or symptoms reported regarding the dermatologic system. Skin is intact, is healthy with good turgor, Skin is dry, Skin is normal, Skin temperature is warm. Musculoskeletal: No deficits noted. No signs and/or symptoms reported regarding the musculoskeletal system. Circulation, motion, and sensation intact. Range of motion: intact in all extremities. Historical: - Allergies: 02:10 Grass; lg3 02:10 NKDA; lg3 02:10 Nuts; lg3 02:10 Pollen; lg3 - PMHx: 02:10 elevated creatinine levels; Anxiety; Asthma; Crohn's Disease; depressive disorder; lg3 diabetes mellitus; elevated liver enzymes; Hyperlipidemia; Hypertension; spinal stenosis; ulcerative colitis; - PSHx: 02:10 Cholecystectomy; intestinal Surgery; lg3 - Immunization history:: Adult Immunizations up to date. - Infectious Disease History:: Denies. - Social history:: Smoking status: Patient denies any tobacco usage or history of. Patient/guardian denies using alcohol, street drugs. - Family history:: not pertinent. - Hospitalizations: : No recent hospitalization is reported. Screenin:13 [facility] ED Fall Risk Assessment (Adult) History of falling in the last 3 months, lg3 including since admission No falls in past 3 months (0 pts) Confusion or Disorientation No (0 pts) Intoxicated or Sedated No (0 pts) Impaired Gait No (0 pts) Mobility Assist Device Used No (0 pt) Altered Elimination No (0 pt) Score/Fall Risk Level 0 - 2 = Low Risk Oriented to surroundings, Maintained a safe environment, Educated pt \T\ family on fall prevention, incl call for assistance when getting out of bed, Assessed \T\ reinforced patient's understanding of fall precautions. Abuse screen: Denies threats or abuse. Denies injuries from another. Nutritional screening: No deficits noted. Tuberculosis screening: No symptoms or risk factors identified. Assessment: 02:13 General: see triage assessment. GI: Abd is soft X 4 quads. lg3 04:53 Reassessment: Patient appears in no apparent distress at this time. No changes from lg3 previously documented assessment. Patient and/or family updated on plan of care and expected duration. Pain level reassessed. Patient is alert, oriented x 3, equal unlabored respirations, skin warm/dry/pink. Patient states feeling better. Patient states symptoms have improved. Vital Signs: 02:09 BP 128 / 93; Pulse 76; Resp 17 S; Temp 97.4(O); Pulse Ox 100% on R/A; Weight 86.18 kg lg3 (R); Height 5 ft. 3 in. (R); 05:40 BP 135 / 90; Pulse 70; Resp 18; Pulse Ox 100% on R/A; rv1 02:09 Body Mass Index 33.66 (86.18 kg, 160.02 cm) lg3 ED Course: 01:56 Patient arrived in ED. gm2 01:57 Felipe Estrella MD is Attending Physician. rn 02:10 Triage completed. lg3 02:10 Arm band placed on right wrist. lg3 02:13 Patient has correct armband on for positive identification. lg3 02:21 Radiology exam delayed due to lab results not completed at this time. (BUN/Creatinine). jc4 03:29 Initial lab(s) drawn, by me, sent to lab. Inserted saline lock: 22 gauge in left lg3 forearm, using aseptic technique. Blood collected. Flushed with 10 mL NS. 03:30 CBC with Diff Sent. lg3 03:30 CMP Sent. lg3 03:30 Lipase Sent. lg3 04:07 Dona Hopkins RN is Primary Nurse. lg3 05:04 IV discontinued, intact, bleeding controlled, No redness/swelling at site. Pressure lg3 dressing applied. 05:12 Abdomen In Process Unspecified. EDMS 07:17 Provided Education on: discharge instructions . ap3 07:17 No provider procedures requiring assistance completed. ap3 Administered Medications: 03:29 Drug: morphine IVP or IV 4 mg IVP once over 4 mins Route: IVP; Infused Over: 4 mins; lg3 Site: left forearm; 04:53 Follow up: Response: No adverse reaction; Marked relief of symptoms lg3 03:30 Drug: Ondansetron IVP 4 mg IVP once; over 2 minutes Route: IVP; Site: left forearm; lg3 04:53 Follow up: Response: No adverse reaction lg3 Medication: 02:13 VIS not applicable for this client. lg3 Outcome: 07:04 Discharge ordered by . rn 07:17 Discharged to home ambulatory, ap3 07:17 Condition: good 07:17 Discharge instructions given to patient, Instructed on discharge instructions, follow up and referral plans. Demonstrated understanding of instructions, follow-up care, 07:17 Patient left the ED. ap3 Signatures: Dispatcher [employer] EDHI Felipe Estrella MD MD rn Prokisch Gina, RN RN ap3 Dona Hopkins RN RN lg3 Anusha Briscoe rv1 Fatou Lindquist gm2 Chaz Ruiz jc4 Corrections: (The following items were deleted from the chart) 02:13 02:09 Chief complaint: Patient states: abdominal pain and constipation lg3 lg3 05:11 04:48 In radiology for Abdomen Pelvis W Con+CT.RAD.BRZ. EDMS EDMS
[2024-10-24 07:26] VITALS: TEMP 97.4; O2SAT 100
[2024-10-24 07:31] VITALS: BP 135/90
== END 2024-10-24 07:17 | disposition home or self-care (01) ==
LOC: ER 01:53
DX: K59.00 Constipation, unspecified (principal); E86.0 Dehydration
CPT/HCPCS: 85025; 36415; 83690; 80053; 74176; 96375; 96374; 99284; J2405

== ENCOUNTER 2024-10-24 08:41 | Emergency (ER) | payer OTHER ==
--- NOTE | 2024-10-24 09:14 | ER ---
Nurse's Notes [facility] Name: Piter Iglesias Age: 59 yrs Sex: Male : 1965 Arrival Date: 10/24/2024 Time: 08:41 Bed DX3 Private MD: Diagnosis: Extravasation of other vesicant agent, initial encounter Presentation: 10/24 08:56 Chief complaint: Patient states: Seen last night here, had a CT with contrast to left jl7 ac, vein blew, reports increased pain and tightness to left arm, swelling noted from left bicep down to left wrist. Coronavirus screen: At this time, the client does not indicate any symptoms associated with coronavirus-19. Ebola Screen: No symptoms or risks identified at this time. Initial Sepsis Screen: Does the patient meet any 2 criteria? No. Patient's initial sepsis screen is negative. Does the patient have a suspected source of infection? No. Patient's initial sepsis screen is negative. Risk Assessment: Do you want to hurt yourself or someone else? Patient reports no desire to harm self or others. Onset of symptoms was October 24, 2024. Care prior to arrival: None. 08:56 Method Of Arrival: Ambulatory 7 08:56 Acuity: AISHA 3 jl7 Triage Assessment: 08:59 General: Appears in no apparent distress. uncomfortable, Behavior is calm, cooperative, jl7 appropriate for age. Pain: Complains of pain in left arm Pain currently is 10 out of 10 on a pain scale. Quality of pain is described as numb. Neuro: Level of Consciousness is awake, alert, obeys commands, Oriented to person, place, time, situation. Cardiovascular: Patient's skin is warm and dry. Respiratory: Airway is patent Respiratory effort is even, unlabored, Respiratory pattern is regular, symmetrical. Derm: Skin is pink, warm \T\ dry. Historical: - Allergies: 08:59 Grass; jl7 08:59 NKDA; jl7 08:59 Nuts; jl7 08:59 Pollen; jl7 - PMHx: 08:59 elevated creatinine levels; Anxiety; Asthma; Crohn's Disease; depressive disorder; jl7 diabetes mellitus; elevated liver enzymes; Hyperlipidemia; Hypertension; spinal stenosis; ulcerative colitis; - PSHx: 08:59 Cholecystectomy; intestinal Surgery; jl7 - Immunization history:: Adult Immunizations unknown. - Infectious Disease History:: Denies. - Social history:: Smoking status: Patient denies any tobacco usage or history of. - Family history:: not pertinent. Screenin:06 [facility] ED Fall Risk Assessment (Adult) History of falling in the last 3 months, iw including since admission No falls in past 3 months (0 pts) Confusion or Disorientation No (0 pts) Intoxicated or Sedated No (0 pts) Impaired Gait No (0 pts) Mobility Assist Device Used No (0 pt) Altered Elimination No (0 pt) Score/Fall Risk Level 0 - 2 = Low Risk Oriented to surroundings, Maintained a safe environment. Abuse screen: Denies threats or abuse. Denies injuries from another. Nutritional screening: No deficits noted. Tuberculosis screening: No symptoms or risk factors identified. Assessment: 09:06 General: Appears in no apparent distress. Behavior is calm, cooperative. Pain: iw Complains of pain in left arm. Neuro: Level of Consciousness is awake, alert, obeys commands, Oriented to person, place, time, situation, Vital Signs: 08:56 BP 153 / 105; Pulse 72; Resp 17; Temp 97; Pulse Ox 100% ; Weight 83.91 kg; Height 5 ft. jl7 3 in. ; Pain 10/10; 08:56 Body Mass Index 32.77 (83.91 kg, 160.02 cm) jl7 08:56 Pain Scale: Adult jl7 ED Course: 08:44 Patient arrived in ED. im 08:45 Barry Ureña MD is Attending Physician. [facility] 08:59 Triage completed. jl7 08:59 Arm band placed on right wrist. jl7 09:06 Cely Sterling, YUSUF is Primary Nurse. iw 09:11 Dany Jean MD is Referral Physician. [facility] Administered Medications: 10:00 Drug: [place] PO 5 mg-325 mg 1 tabs PO once Route: PO; iw Outcome: 09:13 Discharge ordered by . [facility] 10:03 Discharged to home ambulatory, iw 10:03 Condition: good 10:03 Discharge instructions given to patient, Instructed on discharge instructions, follow up and referral plans. Demonstrated understanding of instructions, follow-up care, 10:04 Patient left the ED. iw Signatures: Barry Ureña MD MD cha Williams, Irene, RN RN Franklin Pierce RN RN jl7 Blanak Kendall im
--- NOTE | 2024-10-24 09:14 | EDPHYS ---
Physician Documentation [facility] Name: Piter Iglesias Age: 59 yrs Sex: Male : 1965 Arrival Date: 10/24/2024 Time: 08:41 Bed DX3 Private MD: LILLI Physician Barry Ureña HPI: 10/24 09:06 This 59 yrs old Black Male presents to ER via Ambulatory with complaints of Arm Problem reece - Swelling. 09:06 The patient or guardian complains of decreased range of motion, pain, swelling. The reece complaints affect the left bicep, left antecubital area, dorsal aspect of left forearm, left tricep, left elbow and palmar aspect of left forearm. Context: The problem was sustained at the hospital. Onset: The symptoms/episode began/occurred last night. Treatment prior to arrival includes: no previous treatment. Modifying factors: The symptoms are alleviated by remaining still, the symptoms are aggravated by movement, lifting weight, bending arm. Severity of symptoms: At their worst the symptoms were moderate, in the emergency department the symptoms are unchanged. The patient has not experienced similar symptoms in the past. Historical: - Allergies: 08:59 Grass; jl7 08:59 NKDA; jl7 08:59 Nuts; jl7 08:59 Pollen; jl7 - PMHx: 08:59 elevated creatinine levels; Anxiety; Asthma; Crohn's Disease; depressive disorder; jl7 diabetes mellitus; elevated liver enzymes; Hyperlipidemia; Hypertension; spinal stenosis; ulcerative colitis; - PSHx: 08:59 Cholecystectomy; intestinal Surgery; jl7 - Immunization history:: Adult Immunizations unknown. - Infectious Disease History:: Denies. - Social history:: Smoking status: Patient denies any tobacco usage or history of. - Family history:: not pertinent. ROS: 09:06 Constitutional: Negative for fever, chills, and weight loss, Eyes: Negative for injury, reece pain, redness, and discharge, ENT: Negative for injury, pain, and discharge, Neck: Negative for injury, pain, and swelling, Cardiovascular: Negative for chest pain, palpitations, and edema, Respiratory: Negative for shortness of breath, cough, wheezing, and pleuritic chest pain, Abdomen/GI: Negative for abdominal pain, nausea, vomiting, diarrhea, and constipation, Back: Negative for injury and pain, : Negative for injury, bleeding, discharge, and swelling, Skin: Negative for injury, rash, and discoloration, Neuro: Negative for headache, weakness, numbness, tingling, and seizure, Psych: Negative for depression, anxiety, suicide ideation, homicidal ideation, and hallucinations, Allergy/Immunology: Negative for hives, rash, and allergies, Endocrine: Negative for neck swelling, polydipsia, polyuria, polyphagia, and marked weight changes, Hematologic/Lymphatic: Negative for swollen nodes, abnormal bleeding, and unusual bruising, 09:06 MS/extremity: Positive for decreased range of motion, pain, swelling, Exam: :06 Constitutional: This is a well developed, well nourished patient who is awake, alert, reece and in no acute distress. Head/Face: Normocephalic, atraumatic. Eyes: Pupils equal round and reactive to light, extra-ocular motions intact. Lids and lashes normal. Conjunctiva and sclera are non-icteric and not injected. Cornea within normal limits. Periorbital areas with no swelling, redness, or edema. ENT: Nares patent. No nasal discharge, no septal abnormalities noted. Tympanic membranes are normal and external auditory canals are clear. Oropharynx with no redness, swelling, or masses, exudates, or evidence of obstruction, uvula midline. Mucous membranes moist. Neck: Trachea midline, no thyromegaly or masses palpated, and no cervical lymphadenopathy. Supple, full range of motion without nuchal rigidity, or vertebral point tenderness. No Meningismus. Chest/axilla: Normal chest wall appearance and motion. Nontender with no deformity. No lesions are appreciated. Cardiovascular: Regular rate and rhythm with a normal S1 and S2. No gallops, murmurs, or rubs. Normal PMI, no JVD. No pulse deficits. Respiratory: Lungs have equal breath sounds bilaterally, clear to auscultation and percussion. No rales, rhonchi or wheezes noted. No increased work of breathing, no retractions or nasal flaring. Abdomen/GI: Soft, non-tender, with normal bowel sounds. No distension or tympany. No guarding or rebound. No evidence of tenderness throughout. Back: No spinal tenderness. No costovertebral tenderness. Full range of motion. Neuro: Awake and alert, GCS 15, oriented to person, place, time, and situation. Cranial nerves II-XII grossly intact. Motor strength 5/5 in all extremities. Sensory grossly intact. Cerebellar exam normal. Normal gait. Psych: Awake, alert, with orientation to person, place and time. Behavior, mood, and affect are within normal limits. 09:06 Musculoskeletal/extremity: ROM: limited active range of motion, limited passive range of motion, Circulation is intact in all extremities. Sensation intact. Compartment Syndrome exam of affected extremity: is normal. DVT Exam: negative Homans' sign noted on exam, no appreciated bluish discoloration, no erythema, no increased warmth, pain, swelling, tenderness, Vital Signs: 08:56 BP 153 / 105; Pulse 72; Resp 17; Temp 97; Pulse Ox 100% ; Weight 83.91 kg; Height 5 ft. jl7 3 in. ; Pain 10/10; 08:56 Body Mass Index 32.77 (83.91 kg, 160.02 cm) jl7 08:56 Pain Scale: Adult jl7 MDM: 09:01 Medical Screening Exam initiated reece 09:10 Differential diagnosis: contusion, tendonitis. Data reviewed: vital signs, nurses [facility] notes, lab test result(s). Consideration of Admission/Observation Escalation of care including admission/observation considered. I considered the following discharge prescriptions or medication management in the emergency department Medications were administered in the Emergency Department. See MAR. Independent interpretation of the following test(s) in the Emergency Department EKG: See my EKG interpretation above. Test considered but Not performed: Labs: no labs, new. Historians other than the Patient: pt well informed. Care significantly affected by the following chronic conditions: Diabetes, Hypertension, Chronic Kidney Disease. Administered Medications: 10:00 Drug: [place] PO 5 mg-325 mg 1 tabs PO once Route: PO; iw Disposition Summary: 10/24/24 09:13 Discharge Ordered Notes: Location: Home reece Problem: new reece Symptoms: have improved reece Condition: Stable reece Diagnosis - Extravasation of other vesicant agent, initial encounter reece Followup: reece - With: Private Physician - When: 1 - 2 days - Reason: Recheck today's complaints, Continuance of care, Re-evaluation by your physician Followup: reece - With: Dany Jean MD - When: 1 - 2 days - Reason: Recheck today's complaints, Re-evaluation by your physician Discharge Instructions: - Discharge Summary Sheet reece - RICE Therapy for Routine Care of Injuries reece - RICE Therapy for Routine Care of Injuries, [id number] reece - IV Infiltration, [id number] reece - IV Infiltration [facility] Forms: - Medication Reconciliation Form reece - Antibiotic Education reece - Prescription Opioid Use reece - Patient Portal Instructions reece - Leadership Thank You Letter reece Prescriptions: - Motrin IB 200 mg Oral tablet - take 1 tablet ORAL route every 6 hours As needed as needed with food; 20 reece tablet; Refills: 0, Product Selection Permitted Signatures: Barry Ureña MD MD cha Williams, Irene, RN RN Franklin Vela RN RN jl7
[2024-10-24] MEDS ORDERED: HYDROCODONE/APAP 5/325 MG TAB ONE (09:48)
[2024-10-24 10:17] VITALS: BP 153/105; TEMP 97; O2SAT 100
== END 2024-10-24 10:04 | disposition home or self-care (01) ==
LOC: ER 08:41
DX: T80.818A Extravasation of other vesicant agent, initial encounter (principal)
CPT/HCPCS: 99283

== ENCOUNTER 2024-11-14 05:10 | Emergency (ER) | payer OTHER ==
--- NOTE | 2024-11-14 06:39 | RAD REPORT ---
EXAMINATION: CT ABDOMEN AND PELVIS WITHOUT CONTRAST CLINICAL INDICATION: Male, 59 years old.ABD PAIN TECHNIQUE: CT abdomen and pelvis was performed, without IV contrast, as per department protocol. Axia l, sagittal and coronal reconstructions were obtained. One or more of the following dose reduction techniques were used: Automated exposure control, adjustment of the mA and/or kV according to the pat ient size, and/or iterative reconstruction. Unless otherwise specified, incidental findings do not require dedicated imaging follow-up. [id number]. IV CONTRAST: Not administered. COMPARISON: 10/24/2024 FINDINGS: The lack of intravenous contrast limits the sensitivity of this exam for evaluation of solid visceral organs, vascular structures, and retroperitoneum. LOWER CHEST: No acute process identified.Normal heart size. Moderate circumferential thickening of th e distal esophagus which could reflect esophagitis. Endoscopy could better evaluate. UPPER GI: No significant abnormality. LIVER: No significant focal abnormality. GALLBLADDER/BILE DUCTS: Cholecystectomy. Moderate extrahepatic biliary ductal dilatation which could reflect the post-cholecystectomy state. Consider correlating with LFT's. If abnormal, MRCP could further evaluate. PANCREAS: No mass, ductal dilation, or carline-pancreatic fluid. SPLEEN: Unremarkable. ADRENALS: No adrenal masses. KIDNEYS AND URETERS: No hydronephrosis.Limited evaluation for renal masses without contrast.No renal calculi ABDOMINAL AORTA AND OTHER VESSELS: Mild atherosclerotic changes. PERITONEUM: No abnormal free fluid. No free air. LYMPH NODES: No pathologic lymphadenopathy. ABDOMINAL WALL: Unremarkable SMALL BOWEL/COLON: Small bowel has normal course and caliber. No colonic wall thickening or pericolon ic inflammatory changes.Sigmoid anastomosis. Small bowel anastomoses. Moderate formed stool burden could indicate constipation. URINARY BLADDER: Underdistended but grossly unremarkable. REPRODUCTIVE ORGANS: No pathologic process. MUSCULOSKELETAL: Multilevel degenerative changes in the spine. No acute fracture. Grade 2 anterolisth esis of L5 on S1 with bilateral pars defects. ADDITIONAL FINDINGS: None. IMPRESSION: No acute findings in the abdomen or pelvis. Moderately thickened distal esophagus likely reflecting e sophagitis. Endoscopy can better evaluate. Electronically signed by: Emeka Leon MD 11/14/2024 06:35 AM [facility] Due to temporary technical issues with the PACS/[employer] reporting system, reports are being marcelo d by the in-house radiologist without review as a courtesy to ensure prompt reporting the interpreting radiologist is fully responsible for the content of the report. Transcribed Date/Time: 11/14/2024 6:38 AM
[2024-11-14] MEDS ORDERED: KETOROLAC 30 MG/ML INJ ONE (06:55)
[2024-11-14] MEDS ORDERED: MORPHINE 4 MG/ML SYR ONE (06:55)
[2024-11-14] MEDS ORDERED: HALOPERIDOL LACT 5 MG/ML INJ ONE (06:55)
[2024-11-14] MEDS ORDERED: FAMOTIDINE 20 MG/2 ML VIAL IV ONE (06:55)
[2024-11-14] MEDS ORDERED: ONDANSETRON 4 MG/2 ML VIAL ONE (06:55)
[2024-11-14] MEDS ORDERED: NA CHLORIDE 0.9% 1,000 ML ONE (06:56)
[2024-11-14 07:03] LABS: Absolute Basophils 0.1 K/uL (0-0.5); Absolute Eosinophils 0.1 K/uL (0-0.5); Absolute Lymphocytes (CBC) 1.8 K/uL (0.7-4.9); Absolute Monocytes 0.6 K/uL (0.1-1.3); Absolute Neutrophil 3.5 K/uL (1.8-8.0); Basophils % 0.9 % (0-1.3); Hematocrit 32.6 % (39.6-49.0); Hemoglobin 10.9 g/dL (13.6-17.9); Lymphocytes % 30.1 % (15.3-44.8); MCH 27.1 pg (27.0-35.0); MCHC 33.3 g/dL (32.0-36.0); MCV 81.2 fL (80-100); MPV 6.4 fL (7.6-11.3); Monocytes % 10.2 % (3.3-12.3); Neutrophils % 57.8 % (41.7-73.7); Nucleated Red Blood Cells % 0.2 % (0-0); Platelets 325 thou/uL (152-406); RBC Red Blood Cell Count 4.01 M/uL (4.33-5.43); Red Cell Distribution Width 15.2 % (12.1-15.2)
[2024-11-14 07:16] LABS: Albumin 3.3 g/dL (3.4-5.0); Albumin/Globulin Ratio 0.9 (1.1-1.8); Anion Gap 9.4 mEq/L (5.0-15.0); Bilirubin Total 0.2 mg/dL (0.2-1.0); Globulin 3.7 g/dL (2.3-3.5); Potassium 3.4 mEq/L (3.5-5.1)
[2024-11-14] MEDS ORDERED: HYDROCORTISONE SUC 100 MG INJ ONE (08:29)
--- NOTE | 2024-11-14 08:30 | EDPHYS ---
Physician Documentation [facility] Name: Piter Iglesias Age: 59 yrs Sex: Male : 1965 Arrival Date: 11/14/2024 Time: 05:10 Bed 16 Private MD: ED Physician Shar Gusman HPI: 11/14 05:14 This 59 yrs old Black Male presents to ER via Unassigned with complaints of Abdominal sp4 Pain, Back Pain. 11/15 00:43 59-year-old male presents with moderate diffuse abdominal pain. Patient presents with sp4 EMS. History of Crohn's disease. Historical: - Allergies: 11/14 05:15 NKDA; rg5 05:15 Nuts; rg5 05:15 Grass; rg5 05:15 Pollen; rg5 - PMHx: 05:15 diabetes mellitus; Hypertension; Hyperlipidemia; spinal stenosis; ulcerative colitis; rg5 elevated liver enzymes; depressive disorder; Crohn's Disease; Asthma; Anxiety; elevated creatinine levels; - PSHx: 05:15 Cholecystectomy; intestinal Surgery; rg5 - Immunization history:: Adult Immunizations up to date. - Infectious Disease History:: Denies. - Social history:: Smoking status: Patient denies any tobacco usage or history of. ROS: 11/15 01:12 Constitutional: Negative for fever, chills, and weight loss, positive for abdominal sp4 pain All other systems are negative, Exam: 01:12 Constitutional: This is a well developed, well nourished patient who is awake, alert, sp4 and in no acute distress. Head/Face: Normocephalic, atraumatic. Eyes: Pupils equal round and reactive to light, extra-ocular motions intact. Lids and lashes normal. Conjunctiva and sclera are not injected. Cornea within normal limits. Periorbital areas with no swelling, redness, or edema. ENT: Nares patent. No nasal discharge, no septal abnormalities noted. Tympanic membranes are normal and external auditory canals are clear. Oropharynx with no redness, swelling, or masses, exudates, or evidence of obstruction, uvula midline. Mucous membranes moist. Neck: Trachea midline, no thyromegaly or masses palpated, and no cervical lymphadenopathy. Supple, full range of motion without nuchal rigidity, or vertebral point tenderness. Chest/axilla: Normal chest wall appearance and motion. Nontender with no deformity. No lesions are appreciated. Cardiovascular: Regular rate and rhythm with a normal S1 and S2. No gallops, murmurs, or rubs. Normal PMI, no JVD. No pulse deficits. Respiratory: Lungs have equal breath sounds bilaterally, clear to auscultation and percussion. No rales, rhonchi or wheezes noted. No increased work of breathing, no retractions or nasal flaring. Abdomen/GI: Soft, with normal bowel sounds. No distension or tympany. No guarding or rebound. Positive for diffuse tenderness Back: No spinal tenderness. No costovertebral tenderness. Skin: Warm, dry with normal turgor. Normal color with no rashes, no lesions, and no evidence of cellulitis. MS/ Extremity: Pulses equal, no cyanosis. Neurovascular intact. Full, normal range of motion. Neuro: Awake and alert, GCS 15, oriented to person, place, time, and situation. Cranial nerves II-XII grossly intact. Motor strength 5/5 in all extremities. Sensory grossly intact. Psych: Awake, alert, with orientation to person, place and time. Behavior, mood, and affect are within normal limits Vital Signs: 11/14 05:15 BP 121 / 82; Pulse 105; Resp 21; Temp 98.3; Pulse Ox 100% on R/A; Weight 85.73 kg; rg5 Height 5 ft. 3 in. ; Pain 9/10; 07:19 BP 123 / 87; Pulse 79; Resp 18; Pulse Ox 100% ; ap3 05:15 Body Mass Index 33.48 (85.73 kg, 160.02 cm) rg5 05:15 Pain Scale: Adult rg5 Jacinto Coma Score: 11/15 01:12 Eye Response: spontaneous(4). Motor Response: obeys commands(6). Verbal Response: sp4 oriented(5). Total: 15. MDM: 11/14 05:15 Medical Screening Exam initiated sp4 08:28 Differential diagnosis: chronic back pain, Fatigue Fracture. Data reviewed: vital sp4 signs, nurses notes, EMS record, old medical records, lab test result(s), radiologic studies, CT scan. Consideration of Admission/Observation Escalation of care including admission/observation considered. ED course: Patient improved after medication. Stable for discharge home. 11/14 05:15 Order name: CBC with Diff; Complete Time: 08:23 sp4 11/14 05:15 Order name: CMP; Complete Time: 08:23 sp4 11/14 05:15 Order name: Lipase; Complete Time: 08:23 sp4 11/14 05:15 Order name: CT Abd/Pelvis - Without Contrast; Complete Time: 06:57 sp4 11/14 05:15 Order name: IV Saline Lock; Complete Time: 07:04 sp4 11/14 05:15 Order name: Labs collected and sent; Complete Time: 07:05 sp4 Administered Medications: 07:03 Drug: Famotidine IVP 20 mg IVP once; dilute with 10 mL 0.9% NaCl; give over 2 minutes rg5 Route: IVP; Site: left forearm; 07:04 Drug: Haloperidol IVP 2.5 mg/50 mL 2.5 mg IVP once; Place patient on a cardiac monitor technician rg5 Route: IVP; Site: left forearm; 07:04 Drug: TORadol - Ketorolac IVP 30 mg IVP once Route: IVP; Site: left forearm; rg5 07:04 Drug: Ondansetron IVP 8 mg IVP once; over 2 minutes Route: IVP; Site: left forearm; rg5 07:04 Drug: morphine IVP or IV 4 mg IVP once over 4 mins Route: IVP; Infused Over: 4 mins; rg5 Site: left forearm; 07:06 Drug: NS 0.9% IV 1000 ml IV at 1 bolus Per protocol; to be given as a bolus over 60 rg5 minutes Route: IV; Rate: 1 bolus; Site: left forearm; 08:36 Drug: Solu-CORTEF IVP 100 mg IVP once Route: IVP; Site: left forearm; ap3 Disposition: 11/15 01:13 Chart complete. sp4 Disposition Summary: 11/14/24 08:29 Discharge Ordered Notes: Location: Home sp4 Problem: new sp4 Symptoms: have improved sp4 Condition: Stable sp4 Diagnosis - Abdominal pain, Generalized sp4 - Acute diffuse abdominal pain sp4 - History of ulcerative colitis sp4 Followup: sp4 - With: Private Physician - When: 7 - 10 days - Reason: Recheck today's complaints Discharge Instructions: - Discharge Summary Sheet sp4 - Abdominal Pain, Adult sp4 Forms: - Patient Portal Instructions sp4 Prescriptions: - Reglan 10 mg Oral tablet - take 1 tablet ORAL route every 6 hours PRN nausea; 30 tablet; Refills: 0, sp4 Product Selection Permitted - dicyclomine 20 mg Oral tablet - take 2 tablets ORAL route 4 times per day PRN abdominal pain; 60 tablet; sp4 Refills: 0, Product Selection Permitted Signatures: Dispatcher [employer] Gina Sena RN RN ap3 Shar Gusman MD MD sp4 Mckinley Villarreal RN RN rg5
--- NOTE | 2024-11-14 08:30 | ER ---
Nurse's Notes [facility] Name: Piter Iglesias Age: 59 yrs Sex: Male : 1965 Arrival Date: 11/14/2024 Time: 05:10 Bed 16 Private MD: Diagnosis: Abdominal pain, Generalized;Acute diffuse abdominal pain;History of ulcerative colitis Presentation: 11/14 05:15 Chief complaint: Patient states: feels sick for 2 days now, my back \T\ stomach hurts rg5 really bad. 05:15 Coronavirus screen: Client denies travel out of the [place] in the last 14 days. Ebola rg5 Screen: Patient denies exposure to infectious person. Initial Sepsis Screen: Does the patient meet any 2 criteria? No. Patient's initial sepsis screen is negative. Does the patient have a suspected source of infection? No. Patient's initial sepsis screen is negative. Risk Assessment: Do you want to hurt yourself or someone else? Patient reports no desire to harm self or others. Onset of symptoms was November 14, 2024. 05:15 Method Of Arrival: EMS: [facility] rg5 05:15 Acuity: AISHA 3 rg5 Triage Assessment: 05:15 General: Appears uncomfortable, Behavior is calm, cooperative, appropriate for age. rg5 Pain: Complains of pain in back and abdomen. EENT: No deficits noted. Neuro: Level of Consciousness is awake, alert, Oriented to person, place, time. Cardiovascular: Denies chest pain. Respiratory: Airway is patent Trachea midline Respiratory effort is even, unlabored, Respiratory pattern is regular, symmetrical. GI: Abdomen is round obese, Abd is rigid. GI: Reports bloating, nausea, Pain is 10 out of 10 on a pain scale. : No signs and/or symptoms were reported regarding the genitourinary system. Derm: Skin is intact, Skin is dry, Skin is normal, Skin temperature is warm. Musculoskeletal: Circulation, motion, and sensation intact. Range of motion: intact in all extremities. Historical: - Allergies: 05:15 NKDA; rg5 05:15 Nuts; rg5 05:15 Grass; rg5 05:15 Pollen; rg5 - PMHx: 05:15 diabetes mellitus; Hypertension; Hyperlipidemia; spinal stenosis; ulcerative colitis; rg5 elevated liver enzymes; depressive disorder; Crohn's Disease; Asthma; Anxiety; elevated creatinine levels; - PSHx: 05:15 Cholecystectomy; intestinal Surgery; rg5 - Immunization history:: Adult Immunizations up to date. - Infectious Disease History:: Denies. - Social history:: Smoking status: Patient denies any tobacco usage or history of. Screenin:15 [facility] ED Fall Risk Assessment (Adult) History of falling in the last 3 months, rg5 including since admission No falls in past 3 months (0 pts) Confusion or Disorientation No (0 pts) Intoxicated or Sedated No (0 pts) Impaired Gait No (0 pts) Mobility Assist Device Used No (0 pt) Altered Elimination No (0 pt) Score/Fall Risk Level 0 - 2 = Low Risk Oriented to surroundings, Maintained a safe environment, Hourly rounding (assess needs \T\ fall precautionary measures) done. Abuse screen: Denies threats or abuse. Nutritional screening: No deficits noted. 05:15 Tuberculosis screening: No symptoms or risk factors identified. rg5 Assessment: 05:39 Reassessment: see triage assessment. GI: Abdomen is round Bowel sounds present in rg5 suprapubic area, right lower quadrant and left lower quadrant Abd is rigid Reports lower abdominal pain, upper abdominal pain, bloating, cramping, nausea, Pain is 10 out of 10 on a pain scale. Vital Signs: 05:15 BP 121 / 82; Pulse 105; Resp 21; Temp 98.3; Pulse Ox 100% on R/A; Weight 85.73 kg; rg5 Height 5 ft. 3 in. ; Pain 9/10; 07:19 BP 123 / 87; Pulse 79; Resp 18; Pulse Ox 100% ; ap3 05:15 Body Mass Index 33.48 (85.73 kg, 160.02 cm) rg5 05:15 Pain Scale: Adult rg5 Jacinto Coma Score: 11/15 01:12 Eye Response: spontaneous(4). Motor Response: obeys commands(6). Verbal Response: sp4 oriented(5). Total: 15. ED Course: 11/14 05:11 Patient arrived in ED. [id number] 05:14 Shar Gusman MD is Attending Physician. sp4 05:15 Arm band placed on. rg5 05:15 Patient has correct armband on for positive identification. Placed in gown. Bed in low rg5 position. Call light in reach. Side rails up X 1. Client placed on continuous cardiac and pulse oximetry monitoring. NIBP monitoring applied. ammonia solution preparer on. Pulse ox on. Door closed. Noise minimized. Warm blanket given. 05:17 Mckinley Villarreal, RN is Primary Nurse. rg5 05:35 Triage completed. rg5 05:38 CT Abd/Pelvis - Without Contrast In Process Unspecified. EDMS 06:45 No provider procedures requiring assistance completed. Inserted saline lock: 20 gauge rg5 22 gauge in left forearm, using aseptic technique. Blood collected. Flushed with 10 mL NS. 06:45 Oxygen administration via nasal cannula \T\ 3L/min. rg5 09:08 IV discontinued, intact, bleeding controlled, No redness/swelling at site. Pressure hb dressing applied. Administered Medications: 07:03 Drug: Famotidine IVP 20 mg IVP once; dilute with 10 mL 0.9% NaCl; give over 2 minutes rg5 Route: IVP; Site: left forearm; 07:04 Drug: Haloperidol IVP 2.5 mg/50 mL 2.5 mg IVP once; Place patient on a security operations engineer rg5 Route: IVP; Site: left forearm; 07:04 Drug: TORadol - Ketorolac IVP 30 mg IVP once Route: IVP; Site: left forearm; rg5 07:04 Drug: Ondansetron IVP 8 mg IVP once; over 2 minutes Route: IVP; Site: left forearm; rg5 07:04 Drug: morphine IVP or IV 4 mg IVP once over 4 mins Route: IVP; Infused Over: 4 mins; rg5 Site: left forearm; 07:06 Drug: NS 0.9% IV 1000 ml IV at 1 bolus Per protocol; to be given as a bolus over 60 rg5 minutes Route: IV; Rate: 1 bolus; Site: left forearm; 08:36 Drug: Solu-CORTEF IVP 100 mg IVP once Route: IVP; Site: left forearm; ap3 Medication: 05:39 VIS not applicable for this client. rg5 Outcome: 08:29 Discharge ordered by . sp4 09:08 Discharged to home ambulatory, hb 09:08 Condition: stable 09:08 Discharge instructions given to patient, Instructed on discharge instructions, follow up and referral plans. medication usage, Demonstrated understanding of instructions, follow-up care, medications, Prescriptions given X 2, 09:09 Patient left the ED. hb Signatures: Dispatcher [employer] EDMS Waleska Walls RN RN Gina Crowley RN RN ap3 Geri [id number] Shar Gusman MD MD sp4 Mckinley Villarreal RN RN rg5
[2024-11-14 09:13] VITALS: TEMP 98.3; O2SAT 100
[2024-11-14 09:15] VITALS: BP 123/87
== END 2024-11-14 09:09 | disposition home or self-care (01) ==
LOC: ER 05:10
DX: R10.84 Generalized abdominal pain (principal); K51.90 Ulcerative colitis, unspecified, without complications
CPT/HCPCS: 85025; 36415; 83690; 80053; 74176; 96375; 96374; 99285; J1630; J1720; J2405; J7030

== ENCOUNTER 2024-11-15 21:38 | Emergency (ER) | payer OTHER ==
[2024-11-15 22:30] LABS: Absolute Basophils 0.1 K/uL (0-0.5); Absolute Lymphocytes (CBC) 2.3 K/uL (0.7-4.9); Absolute Monocytes 0.9 K/uL (0.1-1.3); Absolute Neutrophil 4.5 K/uL (1.8-8.0); Basophils % 0.7 % (0-1.3); Eosinophils % 0.5 % (0-4.4); Hemoglobin 9.7 g/dL (13.6-17.9); MCH 26.9 pg (27.0-35.0); MCHC 32.5 g/dL (32.0-36.0); MCV 82.8 fL (80-100); Monocytes % 11.1 % (3.3-12.3); Neutrophils % 57.7 % (41.7-73.7); Nucleated Red Blood Cells % 0.1 % (0-0); Platelets 286 thou/uL (152-406); RBC Red Blood Cell Count 3.62 M/uL (4.33-5.43); Red Cell Distribution Width 15.4 % (12.1-15.2)
[2024-11-15 22:36] LABS: Protime INR 0.96
--- NOTE | 2024-11-15 22:37 | RAD REPORT ---
EXAM: Chest Single View HISTORY: 59 years Male edema COMPARISON: None. FINDINGS: LUNGS/PLEURA: The lungs are clear. No pleural effusions or pneumothorax. No pulmonary edema. CARDIAC/MEDIASTINUM: The cardiac silhouette is within normal limits. UPPER ABDOMEN: No significant abnormality. BONES: No acute abnormality. LINES/TUBES/OTHER: N/A IMPRESSION: No evidence of acute cardiopulmonary disease.
[2024-11-15 22:51] LABS: ALT/SGPT 48 U/L (16-61); AST/SGOT 18 U/L (15-37); Albumin 3.1 g/dL (3.4-5.0); Albumin/Globulin Ratio 0.9 (1.1-1.8); Alkaline Phosphatase 62 U/L (45-117); Anion Gap 6.9 mEq/L (5.0-15.0); BUN Blood Urea Nitrogen 18 mg/dL (7-18); Bicarbonate 27 mEq/L (21-32); Bilirubin Total 0.2 mg/dL (0.2-1.0); Globulin 3.3 g/dL (2.3-3.5); Glomerular Filtration Rate 62 ml/min (=/>90); Glucose Level 105 mg/dL (74-106); NT PRO-BNP 77 pg/mL (<125); Potassium 3.9 mEq/L (3.5-5.1); Protein, Total 6.4 g/dL (6.4-8.2); Sodium Level 142 mEq/L (136-145); Troponin High Sensitivity 6.1 pg/mL (<58.9)
[2024-11-15 22:53] LABS: Bilirubin Direct < 0.2 mg/dL (0-0.2)
--- NOTE | 2024-11-15 23:50 | ER ---
Nurse's Notes [facility] Name: Piter Iglesias Age: 59 yrs Sex: Male : 1965 Arrival Date: 11/15/2024 Time: 21:38 Bed 15 Private MD: Diagnosis: Localized edema;Acute bilateral lower leg edema, fluid retention in bilateral lower extremities Presentation: 11/15 21:58 Chief complaint: EMS states: TONED OUT FOR BLE EDEMA AND PAIN X1 DAY. Coronavirus dd2 screen: At this time, the client does not indicate any symptoms associated with coronavirus-19. Ebola Screen: No symptoms or risks identified at this time. Initial Sepsis Screen: Does the patient meet any 2 criteria? No. Patient's initial sepsis screen is negative. Does the patient have a suspected source of infection? No. Patient's initial sepsis screen is negative. Risk Assessment: Do you want to hurt yourself or someone else? Patient reports no desire to harm self or others. Onset of symptoms was November 14, 2024. Care prior to arrival: Medication(s) given: zofran 4 mg, FENTANYL 75 MCG IV initiated. 22 GA, in the right hand. 21:58 Method Of Arrival: EMS: [facility] dd2 21:58 Acuity: AISHA 3 dd2 Triage Assessment: 22:01 General: Appears in no apparent distress. uncomfortable, Behavior is calm, cooperative, dd2 appropriate for age. Pain: Complains of pain in right leg and left leg Pain currently is 10 out of 10 on a pain scale. EENT: No deficits noted. No signs and/or symptoms were reported regarding the EENT system. Neuro: No deficits noted. Campbell Agitation-Sedation Scale (RASS): 0 - Alert and Calm Level of Consciousness is awake, alert, obeys commands, Oriented to person, place, time, situation, Appropriate for age. Cardiovascular: No deficits noted. Patient's skin is warm and dry. Respiratory: No deficits noted. Airway is patent Respiratory effort is even, unlabored, Respiratory pattern is regular, symmetrical. GI: No deficits noted. Abdomen is round non-distended, Abd is soft and non tender X 4 quads. : No deficits noted. No signs and/or symptoms were reported regarding the genitourinary system. Derm: No deficits noted. No signs and/or symptoms reported regarding the dermatologic system. Musculoskeletal: Swelling present in right leg and left leg Tenderness present in right leg and left leg Reports pain in right leg and left leg since 11/14/2024. Pain is 10 out of 10 on a pain scale. Historical: - Allergies: 22: Grass; dd2 : Nuts; dd2 : Pollen; dd2 - PMHx: : elevated creatinine levels; Anxiety; Asthma; Crohn's Disease; depressive disorder; dd2 diabetes mellitus; elevated liver enzymes; Hyperlipidemia; Hypertension; spinal stenosis; ulcerative colitis; - PSHx: 22: Cholecystectomy; intestinal Surgery; dd2 - Immunization history:: Adult Immunizations up to date, Client reports receiving the 2nd dose of the Covid vaccine, Client reports receiving the 1st dose of the Covid vaccine, Flu vaccine is up to date. - Infectious Disease History:: Denies. - Social history:: Smoking status: Patient denies any tobacco usage or history of. - Family history:: not pertinent. Screenin:04 [facility] ED Fall Risk Assessment (Adult) History of falling in the last 3 months, dd2 including since admission No falls in past 3 months (0 pts) Confusion or Disorientation No (0 pts) Intoxicated or Sedated No (0 pts) Impaired Gait No (0 pts) Mobility Assist Device Used No (0 pt) Altered Elimination No (0 pt) Score/Fall Risk Level 0 - 2 = Low Risk Oriented to surroundings, Maintained a safe environment, Educated pt \T\ family on fall prevention, incl call for assistance when getting out of bed, Assessed \T\ reinforced patient's understanding of fall precautions, Hourly rounding (assess needs \T\ fall precautionary measures) done. Abuse screen: Denies threats or abuse. Denies injuries from another. Nutritional screening: No deficits noted. Tuberculosis screening: No symptoms or risk factors identified. Assessment: 22:04 Reassessment: SEE TRIAGE ASSESSMENT FOR FULL ASSESSMENT. dd2 Vital Signs: 21:58 BP 122 / 84; Pulse 74; Resp 16; Temp 98.3; Pulse Ox 98% on R/A; Weight 83.91 kg; Pain dd2 10; 23:30 BP 130 / 86; Pulse 69; Resp 16; Pulse Ox 98% on R/A; dd2 11/16 00:33 BP 126 / 82; Pulse 73; Resp 16; Temp 98.2; Pulse Ox 98% on R/A; dd2 11/15 21:58 Pain Scale: Adult dd2 Jacinto Coma Score: 11/15 22:04 Eye Response: spontaneous(4). Motor Response: obeys commands(6). Verbal Response: dd2 oriented(5). Total: 15. 23:45 Eye Response: spontaneous(4). Motor Response: obeys commands(6). Verbal Response: sp4 oriented(5). Total: 15. ED Course: 21:43 Patient arrived in ED. rv1 21:45 Shar Gusman MD is Attending Physician. sp4 21:46 JOVITA KRAMER, YUSUF is Primary Nurse. dd2 21:57 EKG done, by ED staff. hw 22:01 Triage completed. dd2 22:01 Arm band placed on right wrist. Patient placed in an exam room, on a stretcher, on dd2 compliance monitor, on pulse oximetry. 22:04 No provider procedures requiring assistance completed. Patient maintains SpO2 dd2 saturation greater than 95% on room air. 22:04 Patient has correct armband on for positive identification. Bed in low position. Call dd2 light in reach. Side rails up X2. Client placed on continuous cardiac and pulse oximetry monitoring. NIBP monitoring applied. ekg monitor on. Door closed. Noise minimized. Warm blanket given. Pillow given. Verbal reassurance given. 22:36 XRAY Chest (1 view) In Process Unspecified. [facility] 11/16 00:34 IV discontinued, intact, bleeding controlled, No redness/swelling at site. Pressure dd2 dressing applied. 00:34 Provided Education on: D/C EDUCATION. dd2 Administered Medications: 00:07 Drug: LORazepam PO 1 mg PO once Route: PO; dd2 00:07 Drug: Furosemide PO 40 mg PO once Route: PO; dd2 Medication: 11/15 22:04 VIS not applicable for this client. dd2 Outcome: 23:49 Discharge ordered by . sp4 11/16 00:34 Discharged to home ambulatory, dd2 Condition: stable Discharge instructions given to patient, Instructed on discharge instructions, follow up and referral plans. medication usage, Demonstrated understanding of instructions, follow-up care, medications, Prescriptions given X 1, 00:39 Patient left the ED. dd2 Signatures: Dispatcher [employer] EDMS Briscoe Anusha rv1 Shar Gusman MD MD sp4 JOVITA KRAMER RN RN dd2 Erica Rader Corrections: (The following items were deleted from the chart) 11/15 22:02 22:01 Allergies: NKDA; dd2 dd2
--- NOTE | 2024-11-15 23:50 | EDPHYS ---
Physician Documentation [facility] Name: Piter Iglesias Age: 59 yrs Sex: Male : 1965 Arrival Date: 11/15/2024 Time: 21:38 Bed 15 Private MD: ED Physician Shar Gusman HPI: 11/15 23:33 This 59 yrs old Black Male presents to ER via EMS with complaints of Leg Swelling. sp4 23:43 This is a 59-year-old male with past medical history of GERD, depression, anxiety, sp4 diabetes mellitus, elevated liver enzymes, hyperlipidemia, hypertension, spinal stenosis, last admission 07/31/2024. Also history of Partial bowel obstruction secondary to multiple bowel surgery, ulcerative colitis, patient presents with complaint of bilateral ankle swelling and pain. Patient states this occurred 2 to 3 days ago.. Patient presents with EMS. Patient's medications from recent admission for record include alprazolam 2 mg p.o. 3 times daily, gabapentin 800 mg p.o. 3 times daily, montelukast 10 mg p.o. daily, paroxetine 20 mg p.o. daily, spironolactone 25 mg p.o. daily, metoprolol 25 mg p.o. twice daily, Protonix 40 mg p.o. daily, amlodipine 20 mg p.o. daily, atorvastatin 80 mg p.o. bedtime, hydroxyzine 20 mg p.o. as needed, calcium carbonate 500 mg p.o. 4 times a day, hydrocodone 5 every 6 hours as needed, Flagyl 500 mg p.o. every 8, prednisone 20 mg p.o. twice daily. Historical: - Allergies: 22:01 Grass; dd2 22:01 Nuts; dd2 22:01 Pollen; dd2 - PMHx: 22:01 elevated creatinine levels; Anxiety; Asthma; Crohn's Disease; depressive disorder; dd2 diabetes mellitus; elevated liver enzymes; Hyperlipidemia; Hypertension; spinal stenosis; ulcerative colitis; - PSHx: 22:01 Cholecystectomy; intestinal Surgery; dd2 - Immunization history:: Adult Immunizations up to date, Client reports receiving the 2nd dose of the Covid vaccine, Client reports receiving the 1st dose of the Covid vaccine, Flu vaccine is up to date. - Infectious Disease History:: Denies. - Social history:: Smoking status: Patient denies any tobacco usage or history of. - Family history:: not pertinent. ROS: 23:45 Constitutional: Negative for fever, chills, and weight loss, positive for bilateral sp4 lower extremity swelling in the ankles 23:45 All other systems are negative, Exam: 23:45 Constitutional: This is a well developed, well nourished patient who is awake, alert, sp4 and in no acute distress. Head/Face: Normocephalic, atraumatic. Eyes: Pupils equal round and reactive to light, extra-ocular motions intact. Lids and lashes normal. Conjunctiva and sclera are not injected. Cornea within normal limits. Periorbital areas with no swelling, redness, or edema. ENT: Nares patent. No nasal discharge, no septal abnormalities noted. Tympanic membranes are normal and external auditory canals are clear. Oropharynx with no redness, swelling, or masses, exudates, or evidence of obstruction, uvula midline. Mucous membranes moist. Neck: Trachea midline, no thyromegaly or masses palpated, and no cervical lymphadenopathy. Supple, full range of motion without nuchal rigidity, or vertebral point tenderness. Chest/axilla: Normal chest wall appearance and motion. Nontender with no deformity. No lesions are appreciated. Cardiovascular: Regular rate and rhythm with a normal S1 and S2. No gallops, murmurs, or rubs. Normal PMI, no JVD. No pulse deficits. Respiratory: Lungs have equal breath sounds bilaterally, clear to auscultation and percussion. No rales, rhonchi or wheezes noted. No increased work of breathing, no retractions or nasal flaring. Abdomen/GI: Soft, with normal bowel sounds. No distension or tympany. No guarding or rebound. No evidence of tenderness throughout. Back: No spinal tenderness. No costovertebral tenderness. Skin: Warm, dry with normal turgor. Normal color with no rashes, no lesions, and no evidence of cellulitis. MS/ Extremity: Pulses equal, no cyanosis. Neurovascular intact. Full, normal range of motion. Mild bilateral ankle swelling with some pitting. Normal peripheral pulses Neuro: Awake and alert, GCS 15, oriented to person, place, time, and situation. Cranial nerves II-XII grossly intact. Motor strength 5/5 in all extremities. Sensory grossly intact. Psych: Awake, alert, with orientation to person, place and time. Behavior, mood, and affect are within normal limits Vital Signs: 21:58 BP 122 / 84; Pulse 74; Resp 16; Temp 98.3; Pulse Ox 98% on R/A; Weight 83.91 kg; Pain dd2 06/27; 23:30 BP 130 / 86; Pulse 69; Resp 16; Pulse Ox 98% on R/A; dd2 11/16 00:33 BP 126 / 82; Pulse 73; Resp 16; Temp 98.2; Pulse Ox 98% on R/A; dd2 11/15 21:58 Pain Scale: Adult dd2 [place] Coma Score: 11/15 22:04 Eye Response: spontaneous(4). Motor Response: obeys commands(6). Verbal Response: dd2 oriented(5). Total: 15. 23:45 Eye Response: spontaneous(4). Motor Response: obeys commands(6). Verbal Response: sp4 oriented(5). Total: 15. MDM: 23:07 Medical Screening Exam initiated sp4 23:33 ED course: HISTORY: 59 years Male edema COMPARISON: None. FINDINGS: LUNGS/PLEURA: The sp4 lungs are clear. No pleural effusions or pneumothorax. No pulmonary edema. CARDIAC/MEDIASTINUM: The cardiac silhouette is within normal limits. UPPER ABDOMEN: No significant abnormality. BONES: No acute abnormality. LINES/TUBES/OTHER: N/A IMPRESSION: No evidence of acute cardiopulmonary disease. . 23:45 Differential Diagnosis altered mental status, sepsis, flu, Congestive heart failure, sp4 renal failure. Data reviewed: vital signs, nurses notes, EMS record, old medical records, lab test result(s), radiologic studies, plain films. Consideration of Admission/Observation Escalation of care including admission/observation considered. ED course: Patient's lab profile today does not reveal signs of congestive heart failure or acute renal failure. Cardiac silhouette not enlarged. Patient reports that he has not had his spironolactone lately. Will provide prescription for spironolactone 25 mg p.o. daily as based on list of prior medications from 07/31/2024 for admission. Patient was also offered some lorazepam for anxiety while in ER. Patient will be provided 1 mg p.o. lorazepam. Patient stable for discharge home with someone who can provide him with a ride. 11/15 21:45 Order name: Basic Metabolic Panel; Complete Time: 23:30 4 11/15 21:45 Order name: CBC with Diff; Complete Time: 23:30 sp4 11/15 21:45 Order name: LFT's; Complete Time: 23:30 sp4 11/15 21:45 Order name: Magnesium; Complete Time: 23:30 sp4 11/15 21:45 Order name: NT PRO-BNP; Complete Time: 23:30 sp4 11/15 21:45 Order name: PT-INR; Complete Time: 23:30 sp4 11/15 21:45 Order name: Troponin HS; Complete Time: 23:30 4 11/15 21:45 Order name: XRAY Chest (1 view); Complete Time: 23:30 4 11/15 21:45 Order name: EKG; Complete Time: 21:45 4 11/15 21:45 Order name: Cardiac monitoring; Complete Time: 21:58 4 11/15 21:45 Order name: EKG - Nurse/Tech; Complete Time: 21:58 4 11/15 21:45 Order name: IV Saline Lock; Complete Time: 22:09 4 11/15 21:45 Order name: Labs collected and sent; Complete Time: 22: 4 11/15 21:45 Order name: O2 Per Protocol; Complete Time: 22:09 4 11/15 21:45 Order name: O2 Sat Monitoring; Complete Time: 22:09 4 Administered Medications: 11/16 00:07 Drug: LORazepam PO 1 mg PO once Route: PO; dd2 00:07 Drug: Furosemide PO 40 mg PO once Route: PO; dd2 Disposition Summary: 11/15/24 23:49 Discharge Ordered Notes: Location: Home sp4 Problem: new sp4 Symptoms: have improved sp4 Condition: Stable sp4 Diagnosis - Localized edema sp4 - Acute bilateral lower leg edema, fluid retention in bilateral lower extremities sp4 Followup: sp4 - With: Private Physician - When: 7 - 10 days - Reason: Recheck today's complaints Discharge Instructions: - Discharge Summary Sheet sp4 - Edema, [id number] sp4 Forms: - Patient Portal Instructions sp4 Prescriptions: - Spironolactone 25 mg Oral tablet - take 1 tablet ORAL route daily for 30 days; 30 tablet; Refills: 0, Product sp4 Selection Permitted Signatures: Dispatcher [employer] Shar Field MD MD sp4 JOVITA KRAMER RN RN dd2 Corrections: (The following items were deleted from the chart) 11/15 22:02 22:01 Allergies: NKDA; dd2 dd2
[2024-11-16] MEDS ORDERED: LORAZEPAM 1 MG TABLET ONE (00:02)
[2024-11-16] MEDS ORDERED: FUROSEMIDE 40 MG TABLET ONE (00:02)
[2024-11-16 00:53] VITALS: TEMP 98
[2024-11-16 00:59] VITALS: O2SAT 100
[2024-11-16 01:00] VITALS: BP 116/77
--- NOTE | 2024-11-18 12:10 | EKG ---
Test Date: 2024-11-15 Test Time: 21:53:37 Track Repairer: MANSI MEASUREMENT RESULTS: Intervals: Rate: 62 PA: 132 QRSD: 66 QT: 368 QTc: 373 [place]: P: 63 PA: 132 QRS: 4 T: 0 INTERPRETIVE STATEMENTS: Normal sinus rhythm Normal ECG Compared to ECG 10/05/2024 07:32:42 Myocardial infarct finding no longer present Electronically Signed On 11-18-24 12:05:18 GENERAL COUNSELOR by Aba Hernandez
== END 2024-11-16 00:39 | disposition home or self-care (01) ==
LOC: ER 21:38
DX: R60.0 Localized edema (principal)
CPT/HCPCS: 36415; 71045; 80048; 80076; 83735; 83880; 84484; 85025; 85610; 93005; 99284

== ENCOUNTER 2024-11-24 17:48 | Emergency (ER) | payer OTHER ==
--- NOTE | 2024-11-24 19:04 | RAD REPORT ---
EXAMINATION: US bilateral LOWER EXTREMITY VENOUS DOPPLER CLINICAL INDICATION: Leg pain TECHNIQUE: Sonographic evaluation of the veins of the lower extremity bilaterally formed.Grayscale, c olor and spectral analysis performed on all vessels COMPARISON: No prior exam. FINDINGS: The common femoral, superficial femoral, greater saphenous, popliteal and posterior tibial veins bila terally are compressible and demonstrate augmentation. Doppler demonstrates good flow. IMPRESSION: No evidence of deep venous thrombosis involving either lower extremity
--- NOTE | 2024-11-24 19:09 | RAD REPORT ---
Procedure: Chest Single View HISTORY: Cough COMPARISON: October 2024 FINDINGS: The lungs appear clear of acute infiltrate. No significant pleural effusion noted. Calcified hilar lymph nodes. The heart is normal size. IMPRESSION: No acute abnormality is displayed.
--- NOTE | 2024-11-24 19:16 | RAD REPORT ---
EXAM: CT CHEST, ABDOMEN AND PELVIS WITHOUT CONTRAST CLINICAL INDICATION: Chest and abdominal pain. Shortness of breath TECHNIQUE: CT chest, abdomen and pelvis was performed, without IV contrast, as per department protoco l. Axial, sagittal and coronal reconstructions were obtained. One or more of the following dose reduction techniques were used: Automated exposure control, adjustment of the mA and/or kV according to the patient size, and/or iterative reconstruction. Unless otherwise specified, incidental findings do not require dedicated imaging follow-up. The lack of IV and oral contrast limits evaluation of the mediastinum, norma, vessels, organs and nelda l. COMPARISON: 2023 and October 2024 FINDINGS: Lungs are clear. No mediastinal lymphadenopathy. Calcified left hilar lymph nodes. Wall of the distal esophagus appears mildly thickened. No pleural effusion. No pericardial effusion. Liver, spleen, pancreas, adrenals kidneys and bladder appear grossly normal There is no evidence of diverticulitis. Post surgical changes involve large and small bowel. No obstr uction. Moderate amount stool within the colon. Ventral hernia repair. Mild anterior subluxation L5 on S1. Spondylolysis L5 IMPRESSION: Mild thickening wall of the distal esophagus could be secondary to incomplete distention or inflammat ion. Moderate amount stool within the colon.
[2024-11-24] MEDS ORDERED: ONDANSETRON 4 MG/2 ML VIAL ONE (19:32)
[2024-11-24] MEDS ORDERED: MORPHINE 4 MG/ML SYR ONE (19:32)
[2024-11-24] MEDS ORDERED: PANTOPRAZOLE 40 MG INJ ONE (19:32)
[2024-11-24 19:44] LABS: Absolute Basophils 0.1 K/uL (0-0.5); Absolute Eosinophils 0.1 K/uL (0-0.5); Absolute Lymphocytes (CBC) 2.1 K/uL (0.7-4.9); Absolute Monocytes 0.9 K/uL (0.1-1.3); Absolute Neutrophil 4.5 K/uL (1.8-8.0); Basophils % 0.7 % (0-1.3); Eosinophils % 0.9 % (0-4.4); Hematocrit 30.5 % (39.6-49.0); Hemoglobin 9.9 g/dL (13.6-17.9); Lymphocytes % 27.4 % (15.3-44.8); MCH 26.4 pg (27.0-35.0); MCHC 32.4 g/dL (32.0-36.0); MCV 81.5 fL (80-100); MPV 6.3 fL (7.6-11.3); Platelets 287 thou/uL (152-406); RBC Red Blood Cell Count 3.74 M/uL (4.33-5.43); Red Cell Distribution Width 15.8 % (12.1-15.2)
[2024-11-24 19:45] LABS: PT Prothrombin Time 10.2 SECONDS (10-13.0); Protime INR 0.89
[2024-11-24 19:54] LABS: ALT/SGPT 30 U/L (16-61); Albumin 3.2 g/dL (3.4-5.0); Albumin/Globulin Ratio 0.9 (1.1-1.8); Alkaline Phosphatase 57 U/L (45-117); Anion Gap 9.7 mEq/L (5.0-15.0); BUN Blood Urea Nitrogen 22 mg/dL (7-18); Bicarbonate 25 mEq/L (21-32); Bilirubin Total 0.2 mg/dL (0.2-1.0); Globulin 3.5 g/dL (2.3-3.5); Glomerular Filtration Rate 80 ml/min (=/>90); Glucose Level 103 mg/dL (74-106); Lipase 59 U/L (13-75); Magnesium 2.1 mg/dL (1.6-2.4); NT PRO-BNP 26 pg/mL (<125); Potassium 3.7 mEq/L (3.5-5.1); Protein, Total 6.7 g/dL (6.4-8.2); Sodium Level 142 mEq/L (136-145)
[2024-11-24 19:55] LABS: AST/SGOT < 10 U/L (15-37); Bilirubin Direct < 0.2 mg/dL (0-0.2)
[2024-11-24] MEDS ORDERED: NA CHLORIDE 0.9% 1,000 ML ONE (20:13)
[2024-11-24 20:38] LABS: Specific Gravity 1.019 (1.005-1.030); Sqamous Epithelial None Seen /HPF (None Seen); Urine Bacteria None Seen /HPF (<20); Urine Bilirubin NEGATIVE (Negative); Urine Blood Negative (Negative); Urine Clarity Clear (Clear); Urine Color Colorless (Yellow); Urine Culture Reflex Order NOT NEEDED; Urine Glucose NEGATIVE (Negative); Urine Ketones NEGATIVE (Negative); Urine Microscopic Reflex YN ORDER UMIC; Urine Mucus Slight /HPF (None Seen); Urine Nitrite NEGATIVE (Negative); Urine Protein NEGATIVE (Negative); Urine RBC <5 /HPF (None Seen); Urine Urobilinogen Normal (Normal); Urine WBC <5 /HPF (<5)
[2024-11-24 20:47] LABS: Influenza A Ag Negative; Influenza B Ag Negative; SARS-CoV-2 Antigen Rapid Res Negative (Negative)
--- NOTE | 2024-11-24 20:50 | ER ---
Nurse's Notes [facility] Name: Piter Iglesias Age: 59 yrs Sex: Male : 1965 Arrival Date: 11/24/2024 Time: 17:48 Bed 3 Private MD: Diagnosis: Edema, unspecified;Essential (primary) hypertension Presentation: 11/24 17:50 Chief complaint: EMS states: Toned out for pain all over. Coronavirus screen: At this jl7 time, the client does not indicate any symptoms associated with coronavirus-19. Ebola Screen: No symptoms or risks identified at this time. Initial Sepsis Screen: Does the patient meet any 2 criteria? No. Patient's initial sepsis screen is negative. Does the patient have a suspected source of infection? No. Patient's initial sepsis screen is negative. Risk Assessment: Do you want to hurt yourself or someone else? Patient reports no desire to harm self or others. Onset of symptoms is unknown. 17:50 Method Of Arrival: EMS: [place] [id number] 17:50 Acuity: AISHA 3 jl7 Triage Assessment: 18:35 General: Appears in no apparent distress. uncomfortable, Behavior is calm, cooperative. jl7 Pain: Complains of pain in "all over" Pain currently is 10 out of 10 on a pain scale. Quality of pain is described as aching, crampy. Neuro: Level of Consciousness is awake, alert, obeys commands, Oriented to person, place, time, situation. Cardiovascular: Patient's skin is warm and dry. Respiratory: Airway is patent Respiratory effort is even, unlabored, Respiratory pattern is regular, symmetrical. Derm: Skin is pink, warm \\T\\ dry. Historical: - Allergies: 18:35 Grass; jl7 18:35 Nuts; jl7 18:35 Pollen; jl7 - PMHx: 18:35 elevated creatinine levels; Anxiety; Asthma; Crohn's Disease; depressive disorder; jl7 diabetes mellitus; elevated liver enzymes; Hyperlipidemia; Hypertension; spinal stenosis; ulcerative colitis; - PSHx: 18:35 Cholecystectomy; intestinal Surgery; jl7 - Immunization history:: Adult Immunizations unknown. - Infectious Disease History:: Denies. - Social history:: Smoking status: Patient denies any tobacco usage or history of. - Family history:: not pertinent. Screenin:37 [facility] ED Fall Risk Assessment (Adult) History of falling in the last 3 months, jl7 including since admission No falls in past 3 months (0 pts) Confusion or Disorientation No (0 pts) Intoxicated or Sedated No (0 pts) Impaired Gait No (0 pts) Mobility Assist Device Used No (0 pt) Altered Elimination No (0 pt) Score/Fall Risk Level 0 - 2 = Low Risk Oriented to surroundings, Maintained a safe environment. Abuse screen: Denies threats or abuse. Denies injuries from another. Nutritional screening: No deficits noted. Tuberculosis screening: No symptoms or risk factors identified. Assessment: 17:50 General: See triage assessment. jl7 18:37 Reassessment: US at bedside. jl7 Vital Signs: 17:50 BP 154 / 91; Pulse 107; Resp 17; Temp 98.7; Pulse Ox 100% ; Weight 84.82 kg; Height 5 jl7 ft. 3 in. ; Pain 10/10; 19:39 BP 155 / 93; Pulse 97; Resp 18; Pulse Ox 97% ; cp4 20:49 BP 148 / 95; Pulse 94; Resp 18; Pulse Ox 98% ; br2 17:50 Body Mass Index 33.13 (84.82 kg, 160.02 cm) jl7 17:50 Pain Scale: Adult jl7 [place] Coma Score: 19:12 Eye Response: spontaneous(4). Motor Response: obeys commands(6). Verbal Response: reece oriented(5). Total: 15. ED Course: 17:50 Patient arrived in ED. ty 17:50 Barry Ureña MD is Attending Physician. reece 17:52 Franklin Pierce, RN is Primary Nurse. jl7 18:00 EKG done, by ED staff, reviewed by Barry Ureña MD. jl7 18:25 Missed attempt(s): 22 gauge in right antecubital area. Bleeding controlled, band aid jl7 applied, catheter tip intact. 18:35 Triage completed. jl7 18:35 Arm band placed on right wrist. jl7 18:37 Patient has correct armband on for positive identification. Placed in gown. Bed in low jl7 position. Call light in reach. Side rails up X2. Provided Education on: use of call valencia. Client placed on continuous cardiac and pulse oximetry monitoring. NIBP monitoring applied. youth nutritional monitor on. Pulse ox on. Warm blanket given. 18:55 US Extremity Venous W Compression Abdiel In Process Unspecified. EDMS 19:01 XRAY Chest (1 view) In Process Unspecified. EDMS 19:01 CT Chest Abdomen Pelvis W/O Contrast In Process Unspecified. EDMS 19:38 No provider procedures requiring assistance completed. Inserted saline lock: 18 gauge cp4 in left EJ, using aseptic technique. Blood collected. Flushed with 10 mL NS Inserted by Dr. Ureña. 19:42 Maria Luisa Auguste PA-C [facility]. sb4 20:50 Galindo Joy MD is Referral Physician. sb4 21:21 intact, bleeding controlled, No redness/swelling at site. Pressure dressing applied. cp4 Administered Medications: 19:37 Drug: Ondansetron IVP 4 mg IVP once; over 2 minutes Route: IVP; Site: left jugular; cp4 20:17 Follow up: Response: No adverse reaction cp4 19:38 Drug: Pantoprazole IVP 40 mg IVP once Route: IVP; Site: left jugular; cp4 20:17 Follow up: Response: No adverse reaction cp4 19:38 Drug: morphine IVP or IV 4 mg IVP once over 4 mins Route: IVP; Infused Over: 4 mins; cp4 Site: left jugular; 20:17 Follow up: Response: No adverse reaction cp4 20:16 Drug: NS 0.9% IV 1000 ml IV at 1000 ml once; to be given as a bolus over 60 minutes cp4 Route: IV; Rate: 1000 ml; Site: left jugular; 21:20 Follow up: IV Status: Completed infusion cp4 Medication: 18:37 VIS not applicable for this client. jl7 Outcome: 20:50 Discharge ordered by . sb4 21:21 Discharged to home via wheelchair, cp4 21:21 Condition: stable 21:21 Discharge instructions given to patient, Instructed on discharge instructions, follow up and referral plans. medication usage, Demonstrated understanding of instructions, follow-up care, medications, Prescriptions given X 1, 21:22 Patient left the ED. cp4 Signatures: Dispatcher [employer] Barry Win MD MD cha Leal, Jahala, RN RN jl7 Maria Luisa Auguste PA-C PA-C sb4 Anais Braga cp4 Yandell, Lj ty [place], Subha, RN RN br2
--- NOTE | 2024-11-24 20:51 | EDPHYS ---
Physician Documentation [facility] Name: Piter Iglesias Age: 59 yrs Sex: Male : 1965 Arrival Date: 11/24/2024 Time: 17:48 Bed 3 Private MD: LILLI Physician Barry Ureña HPI: 11/24 19:12 This 59 yrs old Black Male presents to ER via EMS with complaints of Pain All Over. reece 19:12 The patient presents with pain, that is acute. The complaints affect the right leg and reece left leg. Context: The problem was sustained at an unknown site, resulted from an unknown cause. Onset: The symptoms/episode began/occurred 2 day(s) ago. Modifying factors: The symptoms are alleviated by nothing. the symptoms are aggravated by nothing. Associated signs and symptoms: Pertinent positives: weakness. The patient presents with abdominal pain in the upper abdomen, in the lower abdomen, abdominal distention in the upper abdomen, in the lower abdomen. no cp , no sob, abd pain... hx sbo. The symptoms are described as crampy. Severity of pain: At its worst the pain was mild moderate in the emergency department the pain is unchanged. Severity of symptoms: At their worst the symptoms were mild, in the emergency department the symptoms are unchanged. Historical: - Allergies: 18:35 Grass; jl7 18:35 Nuts; jl7 18:35 Pollen; jl7 - PMHx: 18:35 elevated creatinine levels; Anxiety; Asthma; Crohn's Disease; depressive disorder; jl7 diabetes mellitus; elevated liver enzymes; Hyperlipidemia; Hypertension; spinal stenosis; ulcerative colitis; - PSHx: 18:35 Cholecystectomy; intestinal Surgery; jl7 - Immunization history:: Adult Immunizations unknown. - Infectious Disease History:: Denies. - Social history:: Smoking status: Patient denies any tobacco usage or history of. - Family history:: not pertinent. ROS: 19:12 Constitutional: Negative for fever, chills, and weight loss, Eyes: Negative for injury, reece pain, redness, and discharge, ENT: Negative for injury, pain, and discharge, Neck: Negative for injury, pain, and swelling, Cardiovascular: Negative for chest pain, palpitations, and edema, Respiratory: Negative for shortness of breath, cough, wheezing, and pleuritic chest pain, Back: Negative for injury and pain, : Negative for injury, bleeding, discharge, and swelling, Skin: Negative for injury, rash, and discoloration, Neuro: Negative for headache, weakness, numbness, tingling, and seizure, Psych: Negative for depression, anxiety, suicide ideation, homicidal ideation, and hallucinations, Allergy/Immunology: Negative for hives, rash, and allergies, Endocrine: Negative for neck swelling, polydipsia, polyuria, polyphagia, and marked weight changes, 19:12 Abdomen/GI: Positive for abdominal pain, abdominal cramps, abdominal distension, 19:12 MS/extremity: Positive for pain, swelling, of the right leg and left leg, Exam: 19:12 Constitutional: This is a well developed, well nourished patient who is awake, alert, reece and in no acute distress. Head/Face: Normocephalic, atraumatic. Eyes: Pupils equal round and reactive to light, extra-ocular motions intact. Lids and lashes normal. Conjunctiva and sclera are non-icteric and not injected. Cornea within normal limits. Periorbital areas with no swelling, redness, or edema. ENT: Nares patent. No nasal discharge, no septal abnormalities noted. Tympanic membranes are normal and external auditory canals are clear. Oropharynx with no redness, swelling, or masses, exudates, or evidence of obstruction, uvula midline. Mucous membranes moist. Neck: Trachea midline, no thyromegaly or masses palpated, and no cervical lymphadenopathy. Supple, full range of motion without nuchal rigidity, or vertebral point tenderness. No Meningismus. Chest/axilla: Normal chest wall appearance and motion. Nontender with no deformity. No lesions are appreciated. Respiratory: Lungs have equal breath sounds bilaterally, clear to auscultation and percussion. No rales, rhonchi or wheezes noted. No increased work of breathing, no retractions or nasal flaring. Back: No spinal tenderness. No costovertebral tenderness. Full range of motion. Male : Normal genitalia with no discharge or lesions. Skin: Warm, dry with normal turgor. Normal color with no rashes, no lesions, and no evidence of cellulitis. Neuro: Awake and alert, GCS 15, oriented to person, place, time, and situation. Cranial nerves II-XII grossly intact. Motor strength 5/5 in all extremities. Sensory grossly intact. Cerebellar exam normal. Normal gait. Psych: Awake, alert, with orientation to person, place and time. Behavior, mood, and affect are within normal limits. 19:12 Cardiovascular: Rate: tachycardic, actual rate is 107 bpm, Rhythm: regular, Pulses: Pulses are 4+ in bilateral radial, brachial, femoral, popliteal, posterior tibial and and dorsalis pedis arteries.. Heart sounds: normal, Edema: 1+ edema to level of left midcalf and right midcalf, JVD: is not appreciated, 19:12 ECG was reviewed by the Attending Physician. 19:12 Abdomen/GI: Inspection: distension, that is mild, that is moderate, Bowel sounds: active, Palpation: mild abdominal tenderness, in the right upper quadrant, left upper quadrant, right lower quadrant and left lower quadrant, Liver: no appreciated palpable abnormalities, Hernia: not appreciated, 19:12 Musculoskeletal/extremity: ROM: full active range of motion, full passive range of motion, Circulation is intact in all extremities. Sensation intact. Compartment Syndrome exam of affected extremity: is normal. Weight bearing: able to fully bear weight, DVT Exam: no pain, no tenderness, negative Homans' sign noted on exam, no appreciated bluish discoloration, no erythema, no increased warmth, swelling, Vital Signs: 17:50 BP 154 / 91; Pulse 107; Resp 17; Temp 98.7; Pulse Ox 100% ; Weight 84.82 kg; Height 5 jl7 ft. 3 in. ; Pain 10/10; 19:39 BP 155 / 93; Pulse 97; Resp 18; Pulse Ox 97% ; cp4 20:49 BP 148 / 95; Pulse 94; Resp 18; Pulse Ox 98% ; br2 17:50 Body Mass Index 33.13 (84.82 kg, 160.02 cm) jl7 17:50 Pain Scale: Adult jl7 Anderson Coma Score: 19:12 Eye Response: spontaneous(4). Motor Response: obeys commands(6). Verbal Response: reece oriented(5). Total: 15. Procedures: 19:34 Peripheral line: by aseptic technique a peripheral line was placed in the left external reece jugular vein. MDM: 17:50 Medical Screening Exam initiated [facility] 19:32 Differential diagnosis: appendicitis, bowel obstruction, Cholelithiasis, reece diverticulitis, gastritis, gastroesophageal reflux disease, Hepatitis, pancreatitis, Peptic Ulcer Disease, urinary tract infection. Differential Diagnosis sepsis, flu. Data reviewed: vital signs, nurses notes, lab test result(s), EKG, radiologic studies, plain films. Consideration of Admission/Observation Escalation of care including admission/observation considered. I considered the following discharge prescriptions or medication management in the emergency department Medications were administered in the Emergency Department. See MAR. Independent interpretation of the following test(s) in the Emergency Department EKG: See my EKG interpretation above. Test considered but Not performed: Ultrasound no 2 . Historians other than the Patient: pt well informed. Care significantly affected by the following chronic conditions: Diabetes, Hypertension, Obesity, crohns, ic, anxiety , asthma. 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 11/24 17:52 Order name: Basic Metabolic Panel; Complete Time: 19:55 [facility] 11/24 17:52 Order name: CBC with Diff; Complete Time: 19:49 [facility] 11/24 17:52 Order name: LFT's; Complete Time: 19:55 reece 11/24 17:52 Order name: Magnesium; Complete Time: 19:55 11/24 17:52 Order name: NT PRO-BNP; Complete Time: 19:55 [facility] 11/24 17:52 Order name: PT-INR; Complete Time: 19:49 reece 11/24 17:52 Order name: Troponin HS; Complete Time: 19:55 reece 11/24 17:52 Order name: Lipase; Complete Time: 19:55 [facility] 11/24 17:52 Order name: Urinalysis w/ reflexes; Complete Time: 20:39 reece 11/24 20:02 Order name: COVID-19 Ag + Flu A+B Ag; Complete Time: 20:47 sb4 11/24 17:52 Order name: XRAY Chest (1 view); Complete Time: 19:19 [facility] 11/24 17:52 Order name: US Extremity Venous W Compression Abdiel; Complete Time: 19:19 reece 11/24 17:52 Order name: CT Chest Abdomen Pelvis W/O Contrast; Complete Time: 19:19 [facility] 11/24 17:52 Order name: Cardiac monitoring; Complete Time: 18:38 [facility] 11/24 17:52 Order name: EKG - Nurse/Tech; Complete Time: 18:38 [facility] 11/24 17:52 Order name: IV Saline Lock; Complete Time: 19:27 [facility] 11/24 17:52 Order name: Labs collected and sent; Complete Time: 19:27 [facility] 11/24 17:52 Order name: O2 Per Protocol; Complete Time: 18:38 [facility] 11/24 17:52 Order name: O2 Sat Monitoring; Complete Time: 18:38 [facility] EC:12 Rate is 99 beats/min. Rhythm is regular. QRS [place] is Normal. [place] interval is normal. QRS reece interval is normal. QT interval is normal. No Q waves. T waves are Normal. No ST changes noted. Clinical impression: Normal ECG and No evidence of ischemia. Interpreted by me. Reviewed by me. Administered Medications: 19:37 Drug: Ondansetron IVP 4 mg IVP once; over 2 minutes Route: IVP; Site: left jugular; cp4 20:17 Follow up: Response: No adverse reaction cp4 19:38 Drug: Pantoprazole IVP 40 mg IVP once Route: IVP; Site: left jugular; cp4 20:17 Follow up: Response: No adverse reaction cp4 19:38 Drug: morphine IVP or IV 4 mg IVP once over 4 mins Route: IVP; Infused Over: 4 mins; cp4 Site: left jugular; 20:17 Follow up: Response: No adverse reaction cp4 20:16 Drug: NS 0.9% IV 1000 ml IV at 1000 ml once; to be given as a bolus over 60 minutes cp4 Route: IV; Rate: 1000 ml; Site: left jugular; 21:20 Follow up: IV Status: Completed infusion cp4 Disposition Summary: 11/24/24 20:50 Discharge Ordered Notes: Location: Home sb4 Problem: new sb4 Symptoms: have improved sb4 Condition: Stable sb4 Diagnosis - Edema, unspecified sb4 - Essential (primary) hypertension sb4 Followup: reece - With: Private Physician - When: 2 - 3 days - Reason: Recheck today's complaints, Continuance of care, Re-evaluation by your physician Followup: reece - With: Galindo Joy MD - When: 2 - 3 days - Reason: Recheck today's complaints, Re-evaluation by your physician Discharge Instructions: - Discharge Summary Sheet reece - Edema reece - Hypertension, Adult reece - Hypertension, Adult, [id number] reece - How to Take Your Blood Pressure, [id number] reece - Heart-Healthy Eating Plan, [id number] reece - Managing Your Hypertension reece - Heart Failure Eating Plan reece Forms: - Medication Reconciliation Form sb4 - Antibiotic Education sb4 - Prescription Opioid Use sb4 - Patient Portal Instructions sb4 - Leadership Thank You Letter sb4 Prescriptions: - Protonix 40 mg Oral Tablet - take 1 tablet ORAL route once daily; 30 tablet; Refills: 0, Product Selection reece Permitted - Hydrochlorothiazide 12.5 mg Oral capsule - take 1 tablet ORAL route once daily; 20 tablet; Refills: 0, Product Selection reece Permitted Signatures: Dispatcher [employer] EDBarry Cazares MD MD cha Leal, Jahala, RN RN jl7 Maria Luisa Auguste PA-C PADavon sb4 Anais Braga 4 Corrections: (The following items were deleted from the chart) 17:53 17:53 BASIC METABOLIC PANEL+C.LAB.BRZ ordered. EDMS EDMS 17:53 17:53 CBC+H.LAB.BRZ ordered. EDMS EDMS 17:53 17:53 HEPATIC FUNCTION+C.LAB.BRZ ordered. EDMS EDMS 17:53 17:53 MAGNESIUM+C.LAB.BRZ ordered. EDMS EDMS 17:53 17:53 PROBNP+C.LAB.BRZ ordered. EDMS EDMS 17:53 17:53 PROTIME (+INR)+COAG.LAB.BRZ ordered. EDMS EDMS 17:53 17:53 Troponin High Sensitivity+C.LAB.BRZ ordered. EDMS EDMS 17:53 17:53 LIPASE+C.LAB.BRZ ordered. EDMS EDMS 17:53 17:53 Urinalysis+U.LAB.BRZ ordered. EDMS EDMS 17:53 17:53 Chest Single View+RAD.RAD.BRZ ordered. EDMS EDMS 17:53 17:53 Extrem Venous W Compression Abdiel+US.RAD.BRZ ordered. EDMS EDMS 17:53 17:53 Chest Abdomen Pelvis Wo Con+CT.RAD.BRZ ordered. EDMS EDMS
[2024-11-24 22:13] VITALS: TEMP 98.7
[2024-11-24 22:26] VITALS: BP 148/95; O2SAT 98
--- NOTE | 2024-11-26 11:04 | EKG ---
Test Date: 2024-11-24 Test Time: 17:04:10 Goat Farmer: ELE MEASUREMENT RESULTS: Intervals: Rate: 99 [place]: 130 QRSD: 64 QT: 340 QTc: 436 [place]: P: 73 [place]: 130 QRS: 8 T: 32 INTERPRETIVE STATEMENTS: Normal sinus rhythm Normal ECG Compared to ECG 11/15/2024 21:53:37 No significant changes Electronically Signed On 11-26-24 10:59:17 CDT by Aba Hernandez
== END 2024-11-24 21:22 | disposition home or self-care (01) ==
LOC: ER 17:48
DX: R60.9 Edema, unspecified (principal); I10 Essential (primary) hypertension; M79.605 Pain in left leg; M79.604 Pain in right leg; R14.0 Abdominal distension (gaseous); Z11.52 Encounter for screening for COVID-19
CPT/HCPCS: 96361; 93005; 85025; 81001; 80048; 36415; 83735; 85610; 80076; 84484; 83690; 83880; 71250; 74176; 71045; 93970; 96375; 96374; 99285; 87428; J2470; J2405; J7030

== ENCOUNTER 2024-12-24 07:10 | Day surgery (SDC) | payer OTHER ==
[2024-12-24] MEDS ORDERED: NA CHLORIDE 0.9% 1,000 ML ONE (07:54)
[2024-12-24] MEDS ORDERED: LIDOCAINE 1% MPF 5 ML VIAL ONE (07:56)
[2024-12-24] MEDS ORDERED: propofoL 200 MG/20 ML VIAL IV ONE (07:56)
[2024-12-24] MEDS ORDERED: MIDAZOLAM HCL 2 MG/2 ML INJ ONE (09:28)
[2024-12-24] MEDS ORDERED: Phenylephrine HCl 10 MG/ML 1 ML VIAL ONE (10:00)
[2024-12-24] MEDS ORDERED: GLYCOPYRROLATE 0.2 MG/ML SYR ONE (10:00)
[2024-12-24] MEDS ORDERED: NS 0.9% VIAL 10 ML ONE (10:00)
[2024-12-24] MEDS: MIDAZOLAM HCL 2 MG/2 ML INJ ONE (12:05)
[2024-12-24] MEDS: PANTOPRAZOLE 40 MG INJ IVP ONE (12:10)
[2024-12-24 14:09] VITALS: BP 116/82; TEMP 98; O2SAT 100
== END 2024-12-24 12:52 | disposition home or self-care (01) ==
LOC: OR 07:10
PROVIDERS: ATTEND Internal Medicine Gastroenterology
PROC: 0DBF8ZX Excision of Right Large Intestine, Via Natural or Artificial Opening Endoscopic, Diagnostic (ICD-10-PCS; 2024-12-24)
PROC: 0DBG8ZX Excision of Left Large Intestine, Via Natural or Artificial Opening Endoscopic, Diagnostic (ICD-10-PCS; principal; 2024-12-24 08:30)
DX: K92.1 Melena (principal); K59.1 Functional diarrhea; K59.00 Constipation, unspecified; R10.9 Unspecified abdominal pain; K50.00 Crohn's disease of small intestine without complications; K64.8 Other hemorrhoids; K63.89 Other specified diseases of intestine
CPT/HCPCS: 82947 ×2; 88304; 45380; A4216; J2704; J2003; J2371; J2470; J2250 ×2; J7030; 88305

== ENCOUNTER 2025-01-01 22:46 | Emergency (ER) | payer OTHER ==
[2025-01-02] MEDS ORDERED: PANTOPRAZOLE 40 MG INJ ONE (01:10)
[2025-01-02] MEDS ORDERED: MAGNES/ALUMIN/SIMET 30ML UCUP ONE (01:10)
[2025-01-02] MEDS ORDERED: ONDANSETRON 4 MG/2 ML VIAL ONE (01:10)
[2025-01-02] MEDS ORDERED: FAMOTIDINE 20 MG/2 ML VIAL IV ONE (01:11)
[2025-01-02] MEDS ORDERED: MORPHINE 4 MG/ML SYR ONE (01:11)
[2025-01-02] MEDS ORDERED: NA CHLORIDE 0.9% 1,000 ML ONE ×2 (01:11→03:26)
[2025-01-02] MEDS ORDERED: LIDOCAINE VISCOUS 2% 10ML ORAL SOLN ONE (01:12)
[2025-01-02 01:27] LABS: ALT/SGPT 29 U/L (16-61); AST/SGOT 12 U/L (15-37); Albumin 3.8 g/dL (3.4-5.0); Alkaline Phosphatase 73 U/L (45-117); BUN Blood Urea Nitrogen 20 mg/dL (7-18); Bicarbonate 26 mEq/L (21-32); Globulin 3.7 g/dL (2.3-3.5); Glomerular Filtration Rate 62 ml/min (=/>90); Glucose Level 124 mg/dL (74-106); Lipase 30 U/L (13-75); Protein, Total 7.5 g/dL (6.4-8.2); Sodium Level 136 mEq/L (136-145)
[2025-01-02 01:29] LABS: Bilirubin Total < 0.2 mg/dL (0.2-1.0)
[2025-01-02 01:34] LABS: Absolute Basophils 0.1 K/uL (0-0.5); Absolute Eosinophils 0.1 K/uL (0-0.5); Absolute Lymphocytes (CBC) 1.7 K/uL (0.7-4.9); Absolute Monocytes 0.7 K/uL (0.1-1.3); Absolute Neutrophil 4.6 K/uL (1.8-8.0); Basophils % 0.8 % (0-1.3); Hemoglobin 11.3 g/dL (13.6-17.9); Lymphocytes % 23.4 % (15.3-44.8); MCH 25.4 pg (27.0-35.0); MCHC 33.3 g/dL (32.0-36.0); MCV 76.3 fL (80-100); MPV 6.3 fL (7.6-11.3); Monocytes % 10.1 % (3.3-12.3); Neutrophils % 64.7 % (41.7-73.7); Nucleated Red Blood Cells % 0.1 % (0-0); Platelets 353 thou/uL (152-406); RBC Red Blood Cell Count 4.46 M/uL (4.33-5.43); Red Cell Distribution Width 15.9 % (12.1-15.2)
[2025-01-02 01:40] LABS: Specific Gravity 1.013 (1.005-1.030); Urine Bilirubin NEGATIVE (Negative); Urine Blood Negative (Negative); Urine Clarity Clear (Clear); Urine Color Light-Yellow (Yellow); Urine Glucose NEGATIVE (Negative); Urine Ketones NEGATIVE (Negative); Urine Microscopic Reflex YN NO UMIC; Urine Nitrite NEGATIVE (Negative); Urine Protein NEGATIVE (Negative); Urine Urobilinogen Normal (Normal); Urine pH 5.5 (5.0-7.0)
--- NOTE | 2025-01-02 05:06 | RAD REPORT ---
EXAM: CT Abdomen and Pelvis With Intravenous Contrast CLINICAL HISTORY: The patient is 59 years old and is Male; ABD PAIN TECHNIQUE: Axial computed tomography images of the abdomen and pelvis with intravenous contrast. Sagittal and coronal reformatted images were created and reviewed. This CT exam was performed using one or more of the following dose reduction techniques: automated exposure control, adjustmen t of the mA and/or kV according to patient size, and/or use of iterative reconstruction technique. COMPARISON: No relevant prior studies available. FINDINGS: Lung bases: Unremarkable. No mass. No consolidation. Mediastinum: Small hiatal hernia. ABDOMEN: Liver: Unremarkable. No mass. Gallbladder and bile ducts: Gallbladder is surgically absent. No ductal dilation. Pancreas: Unremarkable. No mass. No ductal dilation. Spleen: Unremarkable. No splenomegaly. Adrenals: Unremarkable. No mass. Kidneys and ureters: Unremarkable. No solid mass. No hydronephrosis. Stomach and bowel: Stool throughout the colon which can be seen with constipation. Postsurgical changes in the bowel. No obstruction. No mucosal thickening. PELVIS: Appendix: No findings to suggest acute appendicitis. Bladder: Unremarkable. Reproductive: Unremarkable as visualized. ABDOMEN and PELVIS: Intraperitoneal space: Unremarkable. No free air. No significant fluid collection. Bones/joints: Bilateral pars defects at L5. No acute fracture. No dislocation. Soft tissues: Postsurgical changes in the midline abdominal wall. Vasculature: Unremarkable. No abdominal aortic aneurysm. Lymph nodes: Unremarkable. No enlarged lymph nodes. IMPRESSION: 1. Stool throughout the colon which can be seen with constipation. 2. Postsurgical changes in the bowel. 3. Gallbladder is surgically absent. 4. Additional non-emergent findings as above. Electronically signed by: Bhargav Hernandez MD 01/02/2025 03:51 AM [facility] 8 Due to temporary technical issues with the PACS/[employer] [place] reporting system, reports are being marcelo d by the in-house radiologist without review as a courtesy to ensure prompt reporting the interpreting radiologist is fully responsible for the content of the report. Transcribed Date/Time: 01/02/2025 5:06 AM
[2025-01-02] MEDS ORDERED: BISACODYL 10 MG RECTAL SUPP ONE (06:04)
--- NOTE | 2025-01-02 06:04 | ER ---
Nurse's Notes [facility] Name: Piter Iglesias Age: 59 yrs Sex: Male : 1965 Arrival Date: 01/01/2025 Time: 22:46 Bed 15 Private MD: Diagnosis: Abdominal tenderness;Abdominal pain, Generalized;Constipation;Diarrhea, unspecified;Gastro-esophageal reflux disease without esophagitis Presentation: 01/01 23:00 Chief complaint: Patient states: abdominal pain that started Monday. Reports vomiting cp4 from acid refux and diarrhea. Coronavirus screen: Client denies travel out of the [place] in the last 14 days. At this time, the client does not indicate any symptoms associated with coronavirus-19. Ebola Screen: Patient negative for fever greater than or equal to 101.5 degrees Fahrenheit, and additional compatible Ebola Virus Disease symptoms Patient denies exposure to infectious person. Patient denies travel to an Ebola-affected area in the 21 days before illness onset. No symptoms or risks identified at this time. Initial Sepsis Screen: Does the patient meet any 2 criteria? HR > 90 bpm. No. Patient's initial sepsis screen is negative. Does the patient have a suspected source of infection? No. Patient's initial sepsis screen is negative. Risk Assessment: Do you want to hurt yourself or someone else? Patient reports no desire to harm self or others. Onset of symptoms was December 30, 2024. 23:00 Method Of Arrival: Ambulatory cp4 23:00 Acuity: AISHA 3 cp4 Triage Assessment: 01/02 00:00 General: Behavior is calm, cooperative, appropriate for age. rg5 Historical: - Allergies: 01:32 Grass; rg5 01:32 Nuts; rg5 01:32 Pollen; rg5 - PMHx: :32 elevated creatinine levels; Anxiety; Asthma; Crohn's Disease; depressive disorder; rg5 diabetes mellitus; elevated liver enzymes; Hyperlipidemia; Hypertension; spinal stenosis; ulcerative colitis; - PSHx: :32 Cholecystectomy; intestinal Surgery; rg5 - Immunization history:: Adult Immunizations unknown. - Infectious Disease History:: Denies. - Family history:: not pertinent. - Social history:: Smoking status: unknown. Screenin:32 [facility] ED Fall Risk Assessment (Adult) History of falling in the last 3 months, rg5 including since admission No falls in past 3 months (0 pts) Confusion or Disorientation No (0 pts) Intoxicated or Sedated No (0 pts) Impaired Gait No (0 pts) Mobility Assist Device Used No (0 pt) Altered Elimination No (0 pt) Score/Fall Risk Level 0 - 2 = Low Risk Oriented to surroundings, Maintained a safe environment, Hourly rounding (assess needs \T\ fall precautionary measures) done. Abuse screen: Denies threats or abuse. Nutritional screening: No deficits noted. Tuberculosis screening: No symptoms or risk factors identified. Assessment: 01/01 23:00 General: Appears in no apparent distress. comfortable. Pain: Complains of pain in rg5 abdomen. 23:00 Neuro: Level of Consciousness is awake, alert, obeys commands, Oriented to person, rg5 place, time, situation. Cardiovascular: Denies chest pain. Respiratory: Airway is patent Trachea midline Respiratory effort is even, unlabored. GI: Bowel sounds present in left lower quadrant Abd is soft and non tender. : No signs and/or symptoms were reported regarding the genitourinary system. EENT: No deficits noted. Derm: Skin is intact, Skin is dry, Skin is normal, Skin temperature is warm. Musculoskeletal: Circulation, motion, and sensation intact. Range of motion: intact in all extremities. 01/02 00:30 Reassessment: No changes from previously documented assessment. Patient and/or family rg5 updated on plan of care and expected duration. Pain level reassessed. Patient is alert, oriented x 3, equal unlabored respirations, skin warm/dry/pink. 01:34 Reassessment: No changes from previously documented assessment. Patient and/or family rg5 updated on plan of care and expected duration. Pain level reassessed. Patient is alert, oriented x 3, equal unlabored respirations, skin warm/dry/pink. 02:30 Reassessment: Patient and/or family updated on plan of care and expected duration. Pain rg5 level reassessed. Patient is alert, oriented x 3, equal unlabored respirations, skin warm/dry/pink. Patient states symptoms have improved. 03:23 Reassessment: Patient and/or family updated on plan of care and expected duration. Pain rg5 level reassessed. Patient is alert, oriented x 3, equal unlabored respirations, skin warm/dry/pink. Patient states symptoms have improved. 04:40 Reassessment: Patient and/or family updated on plan of care and expected duration. Pain rg5 level reassessed. Patient is alert, oriented x 3, equal unlabored respirations, skin warm/dry/pink. Patient states symptoms have improved. 05:20 Reassessment: Patient and/or family updated on plan of care and expected duration. Pain rg5 level reassessed. Patient is alert, oriented x 3, equal unlabored respirations, skin warm/dry/pink. Patient states symptoms have improved. 06:19 Reassessment: Patient and/or family updated on plan of care and expected duration. Pain rg5 level reassessed. Patient is alert, oriented x 3, equal unlabored respirations, skin warm/dry/pink. Patient states feeling better. Vital Signs: 01/01 23:00 BP 152 / 104; Pulse 108; Resp 18; Temp 98; Pulse Ox 100% ; Weight 85.73 kg; Height 5 cp4 ft. 3 in. ; Pain 10/10; 23:00 BP 143 / 103; Pulse 99; Resp 18; Pulse Ox 100% on R/A; Pain 10/10; rg5 01/02 00:00 BP 135 / 99; Pulse 100; Resp 18; Pulse Ox 98% on R/A; Pain 7/10; rg5 01:00 BP 138 / 97; Pulse 94; Pulse Ox 98% on R/A; rg5 02:30 BP 125 / 91; Pulse 89; Resp 18; Pulse Ox 97% on R/A; Pain 4/10; rg5 03:22 BP 117 / 71; Pulse 87; Resp 17; Pulse Ox 98% on R/A; rg5 04:40 BP 116 / 89; Pulse 89; Resp 18; Pulse Ox 97% on R/A; rg5 05:20 BP 107 / 78; Pulse 79; Resp 18; Pulse Ox 97% on R/A; rg5 06:18 BP 101 / 67; Pulse 80; Resp 18; Pulse Ox 97% on R/A; rg5 01/01 23:00 Body Mass Index 33.48 (85.73 kg, 160.02 cm) cp4 01/01 23:00 Pain Scale: Adult cp4 23:00 Pain Scale: Adult rg5 01/02 00:00 Pain Scale: Adult rg5 02:30 Pain Scale: Adult rg5 ED Course: 01/01 22:54 Patient arrived in ED. im 22:59 Mckinley Villarreal, YUSUF is Primary Nurse. rg5 23:00 Barry Ureña MD is Attending Physician. reece 23:02 Triage completed. cp4 01/02 01:00 Inserted saline lock: 22 gauge in right antecubital area, using aseptic technique. vc1 Blood collected. Flushed with 10 mL NS. 01:30 Arm band placed on. rg5 01:32 No provider procedures requiring assistance completed. rg5 01:32 Patient has correct armband on for positive identification. Door closed. Noise rg5 minimized. 02:09 CT Abd/Pelvis - IV Contrast Only In Process Unspecified. EDMS 06:03 Adarsh Simmons MD is Referral Physician. [facility] 06:39 IV discontinued, bleeding controlled, No redness/swelling at site. Pressure dressing rg5 applied. 06:39 Provided Education on: post er care. rg5 Administered Medications: 01:10 Drug: Famotidine IVP 20 mg IVP once; dilute with 10 mL 0.9% NaCl; give over 2 minutes rg5 Route: IVP; Site: right antecubital; 02:42 Follow up: Response: No adverse reaction; Pain is decreased rg5 01:10 Drug: Ondansetron IVP 4 mg IVP once; over 2 minutes Route: IVP; Site: right antecubital;rg5 02:43 Follow up: Response: No adverse reaction; Pain is decreased rg5 02:43 Follow up: Response: No adverse reaction; Pain is decreased rg5 01:10 Drug: NS 0.9% IV 1000 ml IV at 1 bolus Per protocol; to be given as a bolus over 60 rg5 minutes Route: IV; Rate: 1 bolus; Site: right antecubital; 02:43 Follow up: IV Status: Completed infusion; IV Intake: 1000ml rg5 01:11 Drug: morphine IVP or IV 4 mg IVP once over 4 mins Route: IVP; Infused Over: 4 mins; rg5 Site: right antecubital; 02:43 Follow up: Response: No adverse reaction; Pain is decreased rg5 01:15 Drug: Pantoprazole IVP 40 mg IVP once Route: IVP; Site: right antecubital; rg5 02:42 Follow up: Response: No adverse reaction; Pain is decreased rg5 01:15 Drug: GI Cocktail without - (Maalox PO 30 ml, Lidocaine Mucous Membrane 2 % 15 rg5 ml) PO once Route: PO; 02:42 Follow up: Response: No adverse reaction; Pain is decreased rg5 03:32 Drug: NS 0.9% IV 1000 ml IV at 1000 ml once; to be given as a bolus over 60 minutes rg5 Route: IV; Rate: 1000 ml; Site: right antecubital; 04:35 Follow up: IV Status: Completed infusion; IV Intake: 1000ml rg5 06:14 Drug: Lactulose PO 30 grams 45 ml PO once Volume: 45 ml; Route: PO; rg5 06:20 Follow up: Response: No adverse reaction rg5 06:14 Drug: Dulcolax WA Suppository 10 mg WA once Route: WA; rg5 06:19 Follow up: Response: No adverse reaction rg5 Medication: 01:32 VIS not applicable for this client. rg5 Intake: 02:43 IV: 1000ml; Total: 1000ml. rg5 04:35 IV: 1000ml; Total: 2000ml. rg5 Outcome: 06:04 Discharge ordered by . reece 06:39 Discharged to home via wheelchair, rg5 06:39 Condition: stable 06:39 Instructed on discharge instructions, follow up and referral plans. Demonstrated understanding of instructions, follow-up care, medications, Prescriptions given X 4, 06:40 Patient left the ED. rg5 Signatures: Dispatcher [employer] Barry Win MD MD cha Calcote, Vanessa RN RN vc1 Blanka Kendall Christina cp4 Mckinley Villarreal RN RN rg5
[2025-01-02] MEDS ORDERED: LACTULOSE 20 GM/30 ML UCUP ONE (06:05)
--- NOTE | 2025-01-02 06:05 | EDPHYS ---
Physician Documentation [facility] Name: Piter Iglesias Age: 59 yrs Sex: Male : 1965 Arrival Date: 01/01/2025 Time: 22:46 Bed 15 Private MD: LILLI Physician Barry Ureña HPI: 01/01 23:48 This 59 yrs old Black Male presents to ER via Ambulatory with complaints of Abdominal reece Pain. 23:48 The patient presents with abdominal pain in the upper abdomen, in the lower abdomen, reece abdominal distention in the upper abdomen, in the lower abdomen. Onset: The symptoms/episode began/occurred 3 day(s) ago. The patient presents to the emergency department with nausea, vomiting, abdominal pain, of the right lower quadrant and left lower quadrant. Onset: The symptoms/episode began/occurred 3 day(s) ago. Possible causes: unknown, flare up of bowel problem, Crohn's disease, ulcerative colitis. The symptoms are aggravated by movement, food , The symptoms are alleviated by nothing. Associated signs and symptoms: Pertinent positives: abdominal pain, nausea, vomiting. The symptoms do not radiate. Associated signs and symptoms: Pertinent positives: nausea and vomiting. The symptoms are described as crampy, steady. Modifying factors: The symptoms are alleviated by nothing, the symptoms are aggravated by drinking, food, movement, pressure. Severity of pain: At its worst the pain was mild in the emergency department the pain has improved. Severity of symptoms: At their worst the symptoms were moderate in the emergency department the symptoms are unchanged. Historical: - Allergies: 01/02 01:32 Grass; rg5 01:32 Nuts; rg5 01:32 Pollen; rg5 - PMHx: 01:32 elevated creatinine levels; Anxiety; Asthma; Crohn's Disease; depressive disorder; rg5 diabetes mellitus; elevated liver enzymes; Hyperlipidemia; Hypertension; spinal stenosis; ulcerative colitis; - PSHx: 01:32 Cholecystectomy; intestinal Surgery; rg5 - Immunization history:: Adult Immunizations unknown. - Infectious Disease History:: Denies. - Family history:: not pertinent. - Social history:: Smoking status: unknown. ROS: 01/01 23:48 Constitutional: Negative for fever, chills, and weight loss, Eyes: Negative for injury, reece pain, redness, and discharge, ENT: Negative for injury, pain, and discharge, Neck: Negative for injury, pain, and swelling, Cardiovascular: Negative for chest pain, palpitations, and edema, Respiratory: Negative for shortness of breath, cough, wheezing, and pleuritic chest pain, Back: Negative for injury and pain, : Negative for injury, bleeding, discharge, and swelling, MS/Extremity: Negative for injury and deformity, Skin: Negative for injury, rash, and discoloration, Neuro: Negative for headache, weakness, numbness, tingling, and seizure, Psych: Negative for depression, anxiety, suicide ideation, homicidal ideation, and hallucinations, Allergy/Immunology: Negative for hives, rash, and allergies, Endocrine: Negative for neck swelling, polydipsia, polyuria, polyphagia, and marked weight changes, Hematologic/Lymphatic: Negative for swollen nodes, abnormal bleeding, and unusual bruising, Abdomen/GI: Positive for abdominal pain, nausea and vomiting, abdominal cramps, abdominal distension, of the right lower quadrant and left lower quadrant, Exam: 23:48 Constitutional: This is a well developed, well nourished patient who is awake, alert, reece and in no acute distress. Head/Face: Normocephalic, atraumatic. Eyes: Pupils equal round and reactive to light, extra-ocular motions intact. Lids and lashes normal. Conjunctiva and sclera are non-icteric and not injected. Cornea within normal limits. Periorbital areas with no swelling, redness, or edema. ENT: Nares patent. No nasal discharge, no septal abnormalities noted. Tympanic membranes are normal and external auditory canals are clear. Oropharynx with no redness, swelling, or masses, exudates, or evidence of obstruction, uvula midline. Mucous membranes moist. Neck: Trachea midline, no thyromegaly or masses palpated, and no cervical lymphadenopathy. Supple, full range of motion without nuchal rigidity, or vertebral point tenderness. No Meningismus. Chest/axilla: Normal chest wall appearance and motion. Nontender with no deformity. No lesions are appreciated. Respiratory: Lungs have equal breath sounds bilaterally, clear to auscultation and percussion. No rales, rhonchi or wheezes noted. No increased work of breathing, no retractions or nasal flaring. Back: No spinal tenderness. No costovertebral tenderness. Full range of motion. Male : Normal genitalia with no discharge or lesions. Skin: Warm, dry with normal turgor. Normal color with no rashes, no lesions, and no evidence of cellulitis. MS/ Extremity: Pulses equal, no cyanosis. Neurovascular intact. Full, normal range of motion., bilateral aka Neuro: Awake and alert, GCS 15, oriented to person, place, time, and situation. Cranial nerves II-XII grossly intact. Motor strength 5/5 in all extremities. Sensory grossly intact. Cerebellar exam normal. Normal gait. Psych: Awake, alert, with orientation to person, place and time. Behavior, mood, and affect are within normal limits. 23:48 Cardiovascular: Rate: tachycardic, actual rate is 108 bpm, Rhythm: regular, Pulses: Pulses are 4+ in bilateral radial, brachial, femoral, popliteal, posterior tibial and and dorsalis pedis arteries.. Heart sounds: normal, Edema: is not appreciated, JVD: is not appreciated, Vital Signs: 23:00 BP 152 / 104; Pulse 108; Resp 18; Temp 98; Pulse Ox 100% ; Weight 85.73 kg; Height 5 cp4 ft. 3 in. ; Pain 10/10; 23:00 BP 143 / 103; Pulse 99; Resp 18; Pulse Ox 100% on R/A; Pain 10/10; rg5 04 00:00 BP 135 / 99; Pulse 100; Resp 18; Pulse Ox 98% on R/A; Pain 7/10; rg5 01:00 BP 138 / 97; Pulse 94; Pulse Ox 98% on R/A; rg5 02:30 BP 125 / 91; Pulse 89; Resp 18; Pulse Ox 97% on R/A; Pain 4/10; rg5 03:22 BP 117 / 71; Pulse 87; Resp 17; Pulse Ox 98% on R/A; rg5 04:40 BP 116 / 89; Pulse 89; Resp 18; Pulse Ox 97% on R/A; rg5 05:20 BP 107 / 78; Pulse 79; Resp 18; Pulse Ox 97% on R/A; rg5 06:18 BP 101 / 67; Pulse 80; Resp 18; Pulse Ox 97% on R/A; rg5 01/01 23:00 Body Mass Index 33.48 (85.73 kg, 160.02 cm) cp4 01/01 23:00 Pain Scale: Adult cp4 23:00 Pain Scale: Adult rg5 01/02 00:00 Pain Scale: Adult rg5 02:30 Pain Scale: Adult rg5 MDM: 01/01 23:00 Medical Screening Exam initiated reece 23:53 Differential diagnosis: Nonspecific abd pain, diverticulitis, viral gastroenteritis, reece gastroenteritis, appendicitis, bowel obstruction, diverticulitis, gastritis, gastroesophageal reflux disease, Hepatitis, Irritable bowel syndrome, Mesenteric ischemia or infarction, non-specific abd pain, pancreatitis, Peptic Ulcer Disease, Ureterolithiasis, urinary tract infection. Data reviewed: vital signs, nurses notes, lab test result(s), radiologic studies, CT scan. Consideration of Admission/Observation Escalation of care including admission/observation considered. I considered the following discharge prescriptions or medication management in the emergency department Medications were administered in the Emergency Department. See MAR. Test considered but Not performed: Ultrasound NO ABD USG. Historians other than the Patient: PT WELL INFORMED. Care significantly affected by the following chronic conditions: Hypertension, Obesity, CROHNS, UC. 01/01 23:02 Order name: CBC with Diff; Complete Time: 01:49 [facility] 01/01 23:02 Order name: CMP; Complete Time: 01:34 [facility] 01/01 23:02 Order name: Lipase; Complete Time: 01:34 [facility] 01/01 23:02 Order name: Urinalysis w/ reflexes; Complete Time: 01:49 [facility] 01/01 23:02 Order name: CT Abd/Pelvis - IV Contrast Only; Complete Time: 06:01 [facility] 01/01 23:02 Order name: IV Saline Lock; Complete Time: 01:27 [facility] 01/01 23:02 Order name: Labs collected and sent; Complete Time: 01:27 [facility] Administered Medications: 01/02 01:10 Drug: Famotidine IVP 20 mg IVP once; dilute with 10 mL 0.9% NaCl; give over 2 minutes rg5 Route: IVP; Site: right antecubital; 02:42 Follow up: Response: No adverse reaction; Pain is decreased rg5 01:10 Drug: Ondansetron IVP 4 mg IVP once; over 2 minutes Route: IVP; Site: right antecubital;rg5 02:43 Follow up: Response: No adverse reaction; Pain is decreased rg5 02:43 Follow up: Response: No adverse reaction; Pain is decreased rg5 01:10 Drug: NS 0.9% IV 1000 ml IV at 1 bolus Per protocol; to be given as a bolus over 60 rg5 minutes Route: IV; Rate: 1 bolus; Site: right antecubital; 02:43 Follow up: IV Status: Completed infusion; IV Intake: 1000ml rg5 01:11 Drug: morphine IVP or IV 4 mg IVP once over 4 mins Route: IVP; Infused Over: 4 mins; rg5 Site: right antecubital; 02:43 Follow up: Response: No adverse reaction; Pain is decreased rg5 01:15 Drug: Pantoprazole IVP 40 mg IVP once Route: IVP; Site: right antecubital; rg5 02:42 Follow up: Response: No adverse reaction; Pain is decreased rg5 01:15 Drug: GI Cocktail without - (Maalox PO 30 ml, Lidocaine Mucous Membrane 2 % 15 rg5 ml) PO once Route: PO; 02:42 Follow up: Response: No adverse reaction; Pain is decreased rg5 03:32 Drug: NS 0.9% IV 1000 ml IV at 1000 ml once; to be given as a bolus over 60 minutes rg5 Route: IV; Rate: 1000 ml; Site: right antecubital; 04:35 Follow up: IV Status: Completed infusion; IV Intake: 1000ml rg5 06:14 Drug: Lactulose PO 30 grams 45 ml PO once Volume: 45 ml; Route: PO; rg5 06:20 Follow up: Response: No adverse reaction rg5 06:14 Drug: Dulcolax ID Suppository 10 mg ID once Route: ID; rg5 06:19 Follow up: Response: No adverse reaction rg5 Disposition Summary: 01/02/25 06:04 Discharge Ordered Notes: Location: Home reece Problem: new reece Symptoms: have improved reece Condition: Stable reece Diagnosis - Abdominal tenderness reece - Abdominal pain, Generalized reece - Constipation reece - Diarrhea, unspecified reece - Gastro-esophageal reflux disease without esophagitis reece Followup: reece - With: Private Physician - When: 2 - 3 days - Reason: Recheck today's complaints, Continuance of care, Re-evaluation by your physician Followup: reece - With: Adarsh Simmons MD - When: 2 - 3 days - Reason: Recheck today's complaints, Re-evaluation by your physician Discharge Instructions: - Discharge Summary Sheet reece - Abdominal Pain, Adult reece - Food Choices to Help Relieve Diarrhea, Adult reece - Constipation, Adult reece - Diarrhea, Adult reece - Food Choices for Gastroesophageal Reflux Disease, Adult reece - Indigestion reece - Constipation, Adult, [id number] reece - Abdominal Pain, Adult, [id number] [facility] Forms: - Medication Reconciliation Form [facility] - Antibiotic Education reece - Prescription Opioid Use reece - Patient Portal Instructions [facility] - Leadership Thank You Letter [facility] Prescriptions: - Dulcolax (bisacodyl) 10 mg Rectal suppository - insert 1 suppository RECTAL route daily for 5 days; 5 suppository; Refills: 0, [facility] Product Selection Permitted - ondansetron 4 mg Oral Tablet,disintegrating - take 1 tablet ORAL route every 6-8 hours for 5 days; 20 tablet; Refills: 0, [facility] Product Selection Permitted - Protonix 40 mg Oral Tablet - take 1 tablet ORAL route once daily; 30 tablet; Refills: 0, Product Selection [facility] Permitted - Lactulose 10 gram/15 mL Oral solution - take 30 milliliters ORAL route once daily; 200 milliliter; Refills: 0, Product reece Selection Permitted - dicyclomine 20 mg Oral tablet - take 1 tablet ORAL route 4 times per day; 28 tablet; Refills: 0, Product reece Selection Permitted Critical care time excluding procedures: 01:02 Critical care time: Bedside Care: 20 minutes, Consultation: 15 minutes, Family [facility] Intervention: 10 minutes. Total time: 45 minutes Signatures: Dispatcher [employer] Barry Win MD MD cha Gallardo, Rommel RN RN rg5
[2025-01-02 06:56] VITALS: TEMP 98
[2025-01-02 07:06] VITALS: O2SAT 97
[2025-01-02 07:08] VITALS: BP 101/67
== END 2025-01-02 06:40 | disposition home or self-care (01) ==
LOC: ER 22:46
DX: K59.00 Constipation, unspecified (principal); K21.9 Gastro-esophageal reflux disease without esophagitis; R19.7 Diarrhea, unspecified; E11.9 Type 2 diabetes mellitus without complications; I10 Essential (primary) hypertension
CPT/HCPCS: 36415; 74177; 80053; 81003; 83690; 85025; J2405; J2470; J7030; Q9967

== ENCOUNTER 2025-06-13 20:34 | Emergency (ER) | payer OTHER ==
[2025-06-13 21:28] LABS: Absolute Lymphocytes (CBC) 1.7 K/uL (0.7-4.9); Hematocrit 28.3 % (39.6-49.0); Hemoglobin 9.0 g/dL (13.6-17.9); MCH 22.4 pg (27.0-35.0); MCHC 31.7 g/dL (32.0-36.0); MCV 70.8 fL (80-100); MPV 6.1 fL (7.6-11.3); Nucleated RBC Absolute Count 0.0 (0-0); Nucleated Red Blood Cells % 0.1 % (0-0); RBC Red Blood Cell Count 4.00 M/uL (4.33-5.43); White Blood Count 5.70 thou/uL (4.3-10.9)
[2025-06-13 21:34] LABS: PT Prothrombin Time 12.3 SECONDS (10-13.0); Protime INR 1.09
[2025-06-13 21:51] LABS: ALT/SGPT 22 U/L (16-61); AST/SGOT 13 U/L (15-37); Albumin 3.1 g/dL (3.4-5.0); Albumin/Globulin Ratio 0.9 (1.1-1.8); Alkaline Phosphatase 82 U/L (45-117); Anion Gap 10.8 mEq/L (5.0-15.0); BUN Blood Urea Nitrogen 10 mg/dL (7-18); Bilirubin Indirect, Calculated 0.0 mg/dL (0.2-0.8); Globulin 3.5 g/dL (2.3-3.5); Glucose Level 116 mg/dL (74-106); Magnesium 1.9 mg/dL (1.6-2.4); NT PRO-BNP 5 pg/mL (<125); Potassium 3.8 mEq/L (3.5-5.1); Troponin High Sensitivity 4.9 pg/mL (<58.9)
[2025-06-13] MEDS ORDERED: MECLIZINE HCL 12.5 MG TAB ONE (21:53)
--- NOTE | 2025-06-13 21:53 | RAD REPORT ---
Procedure: Chest Single View HISTORY: Abdominal pain COMPARISON: January 2025 FINDINGS: The lungs appear clear of acute infiltrate. No significant pleural effusion noted. The heart is borderline enlarged. IMPRESSION: No acute abnormality is displayed.
[2025-06-13 21:58] LABS: Anisocytosis 2+; Blood Morphology Comment NOTED (NOT SEEN); Macrocytosis SLIGHT; Microcytosis 1+; White Blood Cell Scan OK (OK)
[2025-06-13 22:01] LABS: Basophilic Stippling 1+; Ovalocytes 1+
--- NOTE | 2025-06-14 00:57 | RAD REPORT ---
CLINICAL HISTORY: Dizziness. COMPARISON: CT Head 04/18/2022. TECHNIQUE: CT HEAD WITHOUT IV CONTRAST on 06/13/2025 10:09 PM CDT This exam was performed according to our departmental dose-optimization program, which includes autom ated exposure control, adjustment of the mA and/or kV according to patient size and/or use of iterative reconstruction technique. FINDINGS: There is no acute hemorrhage, mass effect or midline shift. Snyder-white differentiation is preserved. There is no hydrocephalus. There is no significant volume loss for age. The calvarium is intact. Orbits and globes are unremarkable. The paranasal sinuses are clear. Mastoid air cells are clear. IMPRESSION: No acute intracranial findings. Electronically signed by: Nilay Stephens MD 06/14/2025 12:53 AM CDT RP Due to temporary technical issues with the PACS/[employer] reporting system, reports are being marcelo d by the in-house radiologist without review as a courtesy to ensure prompt reporting the interpreting radiologist is fully responsible for the content of the report. Transcribed Date/Time: 06/14/2025 12:56 AM
--- NOTE | 2025-06-14 01:23 | RAD REPORT ---
EXAM: CT CHEST ABDOMEN PELVIS ANGIOGRAPHY WITH IV CONTRAST HISTORY: back pain;Abd pain COMPARISON: CT abdomen pelvis March 15, 2025 TECHNIQUE: Multiple helical axial tomographic images were obtained of the chest, abdomen, and pelvis following a dministration of intravenous contrast per angiographic protocol. MIP reformatted images were obtained. This exam was performed according to our departmental dose-optimization program, which includes autom ated exposure control, adjustment of the mA and/or kV according to patient size and/or use of iterative reconstruction technique. FINDINGS: CHEST: Thyroid gland: unremarkable. Axilla: unremarkable. Pulmonary arteries: Segmental and subsegmental pulmonary arteries are not well evaluated due to subop timal enhancement. No evidence of pulmonary embolism within the main, right/left, or lobar pulmonary arteries. Aorta: No evidence of aortic dissection or aneurysm. Mediastinum: There is a mildly thickened appearance of the distal esophagus. Calcific granulomas in t he left hilar region noted. No adenopathy. Heart: Heart is normal in size. Lungs/airways: No consolidation. Airways are patent. A few linear areas of atelectasis in both lungs are present. Pleural spaces: No significant pleural effusion. No pneumothorax. Osseous: Degenerative changes of the shoulders demonstrated. Soft tissues: Unremarkable. Abdomen and pelvis: Liver: [There is low attenuation suggesting fatty changes.] Gallbladder/biliary: [Cholecystectomy changes are present. No significant biliary ductal dilatation.] Pancreas: [Unremarkable. No evidence of ductal enlargement.] Spleen: Appears unremarkable. No splenomegaly. Adrenals: Unremarkable. Kidneys and ureters: [No evidence of hydronephrosis. Small area of decreased cortical density in the upper pole of the left kidney noted probably representing artifact rather than decreased enhancement.] There is a 1 cm simple-appearing cyst in the lower pole of the left kidney. Left [place] k I benign renal cyst measuring 1 cm. No follow-up imaging is recommended. JACR 2018 Feb; 264-273, Management of the Incidental Renal Mass on CT, [employer] 2020; [id number], Bosniak Classification of Cystic Renal Masses, Version 2019. Bladder: Unremarkable. Pelvic organs: Unremarkable. Bowel: [Postoperative changes of the sigmoid colon and small bowel demonstrated. No evidence of bowel obstruction. No bowel wall thickening.] Appendix appears unremarkable. Vasculature: Mild atherosclerosis of the abdominal and pelvic vasculature is demonstrated. No evidenc e of aortic dissection or aneurysm. Major branches of the aorta appear patent. Peritoneum: No free air. No significant free fluid. Lymph nodes: Unremarkable. Soft tissues: Unremarkable. Bones: Degenerative disc space narrowing, vacuum disc phenomenon, and osteophyte formation at L5-S1 d emonstrated. There are chronic pars defects at L5 with grade 1 anterolisthesis of L5 relative to S1. IMPRESSION: 1. Evaluation of the segmental and subsegmental pulmonary arteries is limited due to suboptimal enh ancement. No evidence of pulmonary embolism within the main, right/left, or lobar pulmonary arteries. 2. No evidence of aortic dissection or aneurysm. 3. Small area of questionable decreased enhancement in the upper pole of the left kidney which is p robably artifactual, correlate clinically for underlying urinary tract infection/pyelonephritis. 4. Mildly thickened appearance of the distal esophagus which may be related to esophagitis. 5. Probable hepatic steatosis. 6. L5 spondylolysis with L5-S1 spondylolisthesis. Electronically signed by: Chaz Dempsey MD 06/14/2025 01:13 AM CDT Due to temporary technical issues with the [employer] reporting system, reports are being marcelo d by the in-house radiologist without review as a courtesy to ensure prompt reporting the interpreting radiologist is fully responsible for the content of the report. Transcribed Date/Time: 06/14/2025 1:23 AM
--- NOTE | 2025-06-14 01:44 | ER ---
Nurse's Notes [facility] Name: Piter Iglesias Age: 60 yrs Sex: Male : 1965 Arrival Date: 06/13/2025 Time: 20:34 Bed 12 Private MD: Diagnosis: Dizziness and giddiness;Fall on same level from slipping, tripping and stumbling with subsequent striking against object;Dorsalgia, unspecified;Abdominal pain, unspecified Presentation: 06/13 20:54 Chief complaint: EMS states: Patient complaints of dizziness \T\ fell down 2x this rg5 evening, he was having pain on the back \T\ abdomen. 20:54 Coronavirus screen: Client denies travel out of the [place] in the last 14 days. Ebola rg5 Screen: Patient negative for fever greater than or equal to 101.5 degrees Fahrenheit, and additional compatible Ebola Virus Disease symptoms Patient denies exposure to infectious person. Patient denies travel to an Ebola-affected area in the 21 days before illness onset. Initial Sepsis Screen: Does the patient meet any 2 criteria? No. Patient's initial sepsis screen is negative. Does the patient have a suspected source of infection? No. Patient's initial sepsis screen is negative. Risk Assessment: Do you want to hurt yourself or someone else? Patient reports no desire to harm self or others. Onset of symptoms was June 13, 2025. Care prior to arrival: Medication(s) given: Normal saline infusion, 1000 mL, Tylenol, 1000 mg, IV IV initiated. 20 GA, in the left hand. Activity prior to arrival: fall. Mechanism of Injury: Fall from standing position. 20:54 Method Of Arrival: EMS: [facility] rg5 20:54 Acuity: AISHA 3 rg5 Triage Assessment: 20:55 General: Appears in no apparent distress. distressed, Behavior is calm, cooperative, rg5 appropriate for age. Pain: Complains of pain in back and abdomen. EENT: No signs and/or symptoms were reported regarding the EENT system. Neuro: Level of Consciousness is awake, alert, obeys commands, Oriented to person, place, time, situation. Cardiovascular: Patient's skin is warm and dry. Respiratory: Airway is patent Respiratory effort is even, unlabored, Breath sounds are clear. GI: Abdomen is round non-distended. : No signs and/or symptoms were reported regarding the genitourinary system. Derm: Skin is intact, Skin is dry, Skin is normal. Musculoskeletal: Circulation, motion, and sensation intact. Range of motion: intact in all extremities. Historical: - Allergies: 20:55 Grass; rg5 20:55 Nuts; rg5 20:55 Pollen; rg5 - PMHx: 20:55 elevated creatinine levels; Anxiety; Asthma; Crohn's Disease; depressive disorder; rg5 diabetes mellitus; elevated liver enzymes; Hyperlipidemia; Hypertension; spinal stenosis; ulcerative colitis; - PSHx: 20:55 Cholecystectomy; intestinal Surgery; rg5 - Immunization history:: Adult Immunizations unknown. - Infectious Disease History:: Denies. Screenin:06 [facility] ED Fall Risk Assessment (Adult) History of falling in the last 3 months, rg5 including since admission Yes- fall prone (multiple falls) (3 pts) Confusion or Disorientation No (0 pts) Intoxicated or Sedated No (0 pts) Impaired Gait Yes (1 pt) Mobility Assist Device Used Yes (1 pt) Altered Elimination No (0 pt) Score/Fall Risk Level 3 or more points = High Risk Oriented to surroundings, Maintained a safe environment, Hourly rounding (assess needs \T\ fall precautionary measures) done, Used ambulatory aids as needed (educated on \T\ assisted with). Abuse screen: Denies threats or abuse. Nutritional screening: No deficits noted. Tuberculosis screening: No symptoms or risk factors identified. Assessment: 21:06 Reassessment: No changes from previously documented assessment. General: Appears in no rg5 apparent distress. Pain: Complains of pain in back and abdomen. 22:25 Reassessment: Patient and/or family updated on plan of care and expected duration. Pain rg5 level reassessed. Patient is alert, oriented x 3, equal unlabored respirations, skin warm/dry/pink. Patient states feeling better. 23:29 Reassessment: No changes from previously documented assessment. Patient and/or family rg5 updated on plan of care and expected duration. Pain level reassessed. Patient is alert, oriented x 3, equal unlabored respirations, skin warm/dry/pink. 06/14 00:25 Reassessment: Patient and/or family updated on plan of care and expected duration. Pain ha1 level reassessed. Patient is alert, oriented x 3, equal unlabored respirations, skin warm/dry/pink. Patient states symptoms have improved. 01:30 Reassessment: Patient and/or family updated on plan of care and expected duration. Pain ha1 level reassessed. Patient is alert, oriented x 3, equal unlabored respirations, skin warm/dry/pink. Patient states feeling better. Patient states symptoms have improved. Vital Signs: 06/13 20:55 BP 102 / 74; Pulse 80; Resp 18; Temp 98; Pulse Ox 99% ; Pain 4/10; rg5 21:16 BP 105 / 83; Pulse 94; Resp 18; Pulse Ox 98% ; rg5 22:20 BP 92 / 68; Pulse 71; Resp 18; Pulse Ox 97% on R/A; rg5 23:15 BP 107 / 70 Supine; Pulse 68; rg5 23:20 BP 90 / 68 Sitting; Pulse 78; rg5 23:25 BP 100 / 72 Standing; Pulse 87; rg5 06/14 01:30 BP 108 / 77; Pulse 81; Resp 16 S; Temp 97.6(T); Pulse Ox 98% on R/A; ha1 06/13 20:55 Pain Scale: Adult rg5 ED Course: 06/13 20:54 Patient arrived in ED. ha1 20:54 Barry Upton PA-C is PHCP. cp 20:54 Shar Gusman MD is Attending Physician. cp 20:55 Arm band placed on. rg5 21:01 Mckinley Villarreal, YUSUF is Primary Nurse. rg5 21:05 Triage completed. rg5 21:06 Patient has correct armband on for positive identification. Bed in low position. Call rg5 light in reach. Side rails up X2. Door closed. Noise minimized. Warm blanket given. 21:06 No provider procedures requiring assistance completed. Maintain EMS IV. Dressing rg5 intact. Good blood return noted. Site clean \T\ dry. Gauge \T\ site: 20g left hand. Flushed with 10 mL NS. 21:11 XRAY Chest (1 view) In Process Unspecified. EDMS 23:00 Inserted saline lock: 20 gauge in right forearm, using aseptic technique. Flushed with rg5 10 mL NS. 23:43 CT Head Brain wo Cont In Process Unspecified. EDMS 23:43 CT Aorta for Dissection In Process Unspecified. EDMS 06/14 02:00 IV discontinued, intact, bleeding controlled, No redness/swelling at site. Pressure ha1 dressing applied. 02:01 Provided Education on: follow ups . ha1 Administered Medications: 06/13 21:48 Drug: NS 0.9% IV 1000 ml IV at 1 bolus Per protocol; to be given as a bolus over 60 rg5 minutes Route: IV; Rate: 1 bolus; Site: left hand; 21:54 Drug: Meclizine PO 25 mg PO once Route: PO; rg5 22:15 Follow up: Response: No adverse reaction rg5 Medication: 21:06 VIS not applicable for this client. rg5 Outcome: 06/14 01:43 Discharge ordered by . lin 01:59 Discharged to home ambulatory, [facility] 01:59 Condition: stable 01:59 Discharge instructions given to patient, Instructed on discharge instructions, follow up and referral plans. medication usage, Demonstrated understanding of instructions, follow-up care, medications, Prescriptions given X 2, 02:05 Patient left the ED. 1 Signatures: Dispatcher [employer] EDVA Barry Upton, APRIL PAAngiC Cristina Morillo, RN RN ha1 Mckinley Villarreal RN RN rg5
--- NOTE | 2025-06-14 01:44 | EDPHYS ---
Physician Documentation [facility] Name: Piter Iglesias Age: 60 yrs Sex: Male : 1965 Arrival Date: 06/13/2025 Time: 20:34 Bed 12 Private MD: ED Physician Shar Gusman HPI: 06/13 21:00 This 60 yrs old Black Male presents to ER via EMS with complaints of Back Pain, cp Abdominal Pain, Fall Injury. 21:00 The patient presents with dizziness, feeling faint, lightheadedness. Onset: The cp symptoms/episode began/occurred just prior to arrival. Context: occurred at home, occurred while the patient was walking, just prior to the episode the patient experienced abdominal pain, back pain. Associated signs and symptoms: Pertinent negatives: chest pain, syncope. Severity of symptoms: in the emergency department the symptoms are unchanged despite EMS interventions. Patient's baseline: Neuro: alert and fully oriented, Motor: no deficits, Ambulation: walks without assistance, Speech: normal. Historical: - Allergies: 20:55 Grass; rg5 20:55 Nuts; rg5 20:55 Pollen; rg5 - PMHx: 20:55 elevated creatinine levels; Anxiety; Asthma; Crohn's Disease; depressive disorder; rg5 diabetes mellitus; elevated liver enzymes; Hyperlipidemia; Hypertension; spinal stenosis; ulcerative colitis; - PSHx: 20:55 Cholecystectomy; intestinal Surgery; rg5 - Immunization history:: Adult Immunizations unknown. - Infectious Disease History:: Denies. ROS: 21:05 Constitutional: Negative for body aches, chills, fever, poor PO intake, cp 21:05 Eyes: Negative for injury, pain, redness, and discharge, cp 21:05 Cardiovascular: Negative for chest pain, 21:05 Respiratory: Negative for cough, shortness of breath, wheezing, 21:05 Abdomen/GI: Positive for abdominal pain, 21:05 Back: Positive for pain at rest, pain with movement, 21:05 Neuro: Positive for dizziness, Negative for altered mental status, loss of consciousness, syncope, near syncope, 21:05 All other systems are negative, Exam: 21:10 Constitutional: The patient appears in no acute distress, alert, awake, cp non-diaphoretic, non-toxic, well developed, well nourished, 21:10 Head/Face: Normocephalic, atraumatic. cp 21:10 Eyes: Periorbital structures: appear normal, Pupils: equal, round, and reactive to light and accomodation, Extraocular movements: intact throughout, Conjunctiva: normal, no exudate, no injection, Sclera: no appreciated abnormality, Lids and lashes: appear normal, bilaterally, 21:10 ENT: External ear(s): are unremarkable, Nose: is normal, Mouth: Lips: moist, Oral mucosa: moist, Posterior pharynx: Airway: no evidence of obstruction, patent, 21:10 Neck: ROM/movement: is normal, is supple, without pain, no range of motions limitations, 21:10 Chest/axilla: Inspection: normal, Palpation: is normal, no crepitus, no tenderness, 21:10 Cardiovascular: Rate: normal, Rhythm: regular, Edema: is not appreciated, JVD: is not appreciated, 21:10 Respiratory: the patient does not display signs of respiratory distress, Respirations: normal, no use of accessory muscles, no retractions, labored breathing, is not present, Breath sounds: are clear throughout, no decreased breath sounds, no stridor, no wheezing, 21:10 Abdomen/GI: Inspection: obese scar(s), are noted in the midline surgical scar, Bowel sounds: active, all quadrants, Palpation: soft, in all quadrants, mild abdominal tenderness, in all quadrants, 21:10 Back: pain, ROM is normal, 21:10 Neuro: Orientation: to person, place \T\ time. Mentation: is normal, Cerebellar function: Romberg testing is negative, Motor: moves all fours, no focal deficits, Sensation: no obvious gross deficits, 21:39 ECG was reviewed by the Attending Physician. cp Vital Signs: 20:55 BP 102 / 74; Pulse 80; Resp 18; Temp 98; Pulse Ox 99% ; Pain 4/10; rg5 21:16 BP 105 / 83; Pulse 94; Resp 18; Pulse Ox 98% ; rg5 22:20 BP 92 / 68; Pulse 71; Resp 18; Pulse Ox 97% on R/A; rg5 23:15 BP 107 / 70 Supine; Pulse 68; rg5 23:20 BP 90 / 68 Sitting; Pulse 78; rg5 23:25 BP 100 / 72 Standing; Pulse 87; rg5 06/14 01:30 BP 108 / 77; Pulse 81; Resp 16 S; Temp 97.6(T); Pulse Ox 98% on R/A; ha1 06/13 20:55 Pain Scale: Adult rg5 MDM: 06/13 20:56 Medical Screening Exam initiated 06/14 01:42 Data reviewed: vital signs, nurses notes, lab test result(s), EKG, radiologic studies, cp CT scan, plain films, and as a result, I will discharge patient. 01:42 Differential diagnosis: cardiac arrhythmia, CVA, GI bleed, head injury, hypovolemia, cp idiopathic dizziness, sepsis. I considered the following discharge prescriptions or medication management in the emergency department Medications were administered in the Emergency Department. See MAR. Independent interpretation of the following test(s) in the Emergency Department EKG: See my EKG interpretation above. Care significantly affected by the following chronic conditions: Diabetes. Counseling: I had a detailed discussion with the patient and/or guardian regarding the historical points, exam findings, and any diagnostic results supporting the discharge/admit diagnosis, lab results, radiology results, to return to the emergency department if symptoms worsen or persist or if there are any questions or concerns that arise at home. Response to treatment: the patient's symptoms have mildly improved after treatment, and as a result, I will discharge patient. Special discussion: Based on the patient's Hx, exam, and Dx evaluation, there is no indication for emergent surgery or inpatient Tx. It is understood by the patient/guardian that if the Sx's persist or worsen they need to return immediately for re-evaluation. 06/13 20:56 Order name: Basic Metabolic Panel; Complete Time: 22:07 06/13 22:07 Interpretation: Normal except: CL 111; GLUC 116; GFR 74; CA 8.2. 06/13 20:56 Order name: CBC with Diff; Complete Time: 22:07 06/13 22:07 Interpretation: Normal except: RBC 4.00; HGB 9.0; HCT 28.3; MCV 70.8; MCH 22.4; MCHC cp 31.7; RDW 23.6; MPV 6.1; MN% 13.6; BASO% 1.6. 06/13 20:56 Order name: LFT's; Complete Time: 22:07 06/13 20:56 Order name: Magnesium; Complete Time: 22:07 cp 06/13 20:56 Order name: NT PRO-BNP; Complete Time: 22:07 cp 06/13 20:56 Order name: PT-INR; Complete Time: 22:07 cp 06/13 20:56 Order name: Troponin HS; Complete Time: 22:07 cp 06/13 21:32 Order name: CBC Smear Scan; Complete Time: 22:07 EDMS 06/13 20:56 Order name: XRAY Chest (1 view); Complete Time: 22:07 cp 06/13 22:09 Order name: CT Head Brain wo Cont; Complete Time: 01:37 cp 06/14 01:37 Interpretation: Report reviewed. 06/13 22:10 Order name: CT Aorta for Dissection; Complete Time: 01:37 cp 06/13 20:56 Order name: Cardiac monitoring; Complete Time: 21:37 cp 06/13 20:56 Order name: EKG - Nurse/Tech; Complete Time: 21:37 cp 06/13 20:56 Order name: IV Saline Lock; Complete Time: 21:37 cp 06/13 20:56 Order name: Labs collected and sent; Complete Time: 21:37 cp 06/13 20:56 Order name: O2 Per Protocol; Complete Time: 21:37 cp 06/13 20:56 Order name: O2 Sat Monitoring; Complete Time: 21:37 cp 06/13 21:39 Order name: Orthostatic Blood Pressure; Complete Time: 23:25 cp EC/26 21:39 Rate is 71 beats/min. Rhythm is regular. NV interval is normal. QRS interval is normal. cp QT interval is normal. T waves are Inverted in leads III, aVR. Interpreted by me. Reviewed by me. Administered Medications: 21:48 Drug: NS 0.9% IV 1000 ml IV at 1 bolus Per protocol; to be given as a bolus over 60 rg5 minutes Route: IV; Rate: 1 bolus; Site: left hand; 21:54 Drug: Meclizine PO 25 mg PO once Route: PO; rg5 22:15 Follow up: Response: No adverse reaction rg5 Disposition: 06/14 21:51 Co-signature as Attending Physician, Shar Gusman MD I agree with the assessment sp4 and plan of care. I reviewed the patient's care provided by the Advanced Practice Provider and agree with the diagnosis and treatment plan. Disposition Summary: 06/14/25 01:43 Discharge Ordered Notes: Location: Home cp Problem: new cp Symptoms: have improved cp Condition: Stable cp Diagnosis - Dizziness and giddiness cp - Fall on same level from slipping, tripping and stumbling with subsequent striking cp against object - Dorsalgia, unspecified cp - Abdominal pain, unspecified cp Followup: cp - With: Private Physician - When: 2 - 3 days - Reason: Recheck today's complaints Discharge Instructions: - Discharge Summary Sheet cp - Abdominal Pain, Adult cp - Dizziness cp - Musculoskeletal Pain cp - Nausea, Adult cp - Back Exercises cp Forms: - Medication Reconciliation Form cp - Antibiotic Education cp - Prescription Opioid Use cp - Patient Portal Instructions cp - Leadership Thank You Letter cp Prescriptions: - Meclizine 25 mg Oral Tablet - take 1 tablet ORAL route every 8 hours As needed; 30 tablet; Refills: 0, cp Product Selection Permitted - Zofran 4 mg Oral Tablet - take 1 tablet ORAL route every 12 hours As needed; 20 tablet; Refills: 0, cp Product Selection Permitted Signatures: Dispatcher [employer] EDMS Barry Upton PA-C PAShar Hines cp, MD MD sp4 Mckinley Villarreal RN RN rg5 Corrections: (The following items were deleted from the chart) 06/13 20:56 20:56 BASIC METABOLIC PANEL+C.LAB.BRZ ordered. EDMS EDMS 20:56 20:56 CBC+H.LAB.BRZ ordered. EDMS EDMS 20:56 20:56 HEPATIC FUNCTION+C.LAB.BRZ ordered. EDMS EDMS 20:56 20:56 MAGNESIUM+C.LAB.BRZ ordered. EDMS EDMS 20:56 20:56 PROBNP+C.LAB.BRZ ordered. EDMS EDMS 20:56 20:56 PROTIME (+INR)+COAG.LAB.BRZ ordered. EDMS EDMS 20:56 20:56 Troponin High Sensitivity+C.LAB.BRZ ordered. EDMS EDMS 20:56 20:56 UA Rfx Wilner Cult if indicated+U.LAB.BRZ ordered. EDMS EDMS 20:57 20:56 Chest Single View+RAD.RAD.BRZ ordered. EDMS EDMS 22:11 22:11 Angio Aorta For Dissection+CT.RAD.BRZ ordered. EDMS EDMS
[2025-06-14 03:55] VITALS: BP 108/77; TEMP 97.6; O2SAT 98
== END 2025-06-14 02:05 | disposition home or self-care (01) ==
LOC: ER 20:34
DX: S39.92XA Unspecified injury of lower back, initial encounter (principal); M54.9 Dorsalgia, unspecified; R10.9 Unspecified abdominal pain; R42 Dizziness and giddiness; W01.0XXA Fall on same level from slipping, tripping and stumbling without subsequent striking against object, initial encounter; Y93.9 Activity, unspecified; Y92.9 Unspecified place or not applicable
CPT/HCPCS: 93005; 85025; 80048; 36415; 83735; 85610; 80076; 84484; 83880; 70450; 71275; 74175; 71045; 99284; Q9967; J8597